=== PATIENT | male | born 1960 | race Caucasian/White ===

== ENCOUNTER 2019-08-06 08:42 | Emergency (ER) | payer MEDICAID, SELFPAY ==
[2019-08-06 08:44] VITALS: BP 125/71; PULSE 99; RESP 19; TEMP 36.6; O2SAT 99; BMI 26.9
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
[2019-08-06 09:01] LABS: Absolute Lymphocyte Count 1.37 X10^3/uL (0.83-4.51); Absolute Neutrophil Count 3.7 X10^3/uL (2.0-7.7); Basophil# 0.03 X10^3/uL; Basophil% 0.5 % (0-1); Eosinophil# 0.13 X10^3/uL; Eosinophils% 2.3 % (0-5); Hematocrit 46.4 % (40-54); Hemoglobin 15.4 g/dL (13.0-16.5); Lymphocyte # 1.37 X10^3/ul (4.0); Lymphocyte % 24.1 % (19-41); Mean Corp Hgb Conc 33.2 g/dL (32-36); Mean Corpuscular Hgb 29.7 pg (27.0-32.0); Mean Corpuscular Volume 89.6 fL (80-94); Mean Platelet Vol. 9.7 fl (6.2-12.0); Monocyte# 0.44 X10^3/uL; Monocyte% 7.7 % (0-10); NRBC Flagged by Analyzer 0 % (0-5); Neutrophil # 3.69 X10^3/uL (2.7-7.7); Neutrophil % 64.9 % (47-70); Platelet Count 253 K/mm3 (150-450); RBC Distribution Width CV 11.9 % (11.6-14.6); RBC Distribution Width SD 38.9 fl (35.1-43.9); Red Blood Count 5.18 M/mm3 (4.6-6.2); White Blood Count 5.7 K/mm3 (4.4-11.0)
[2019-08-06 09:07] LABS: Partial Thromboplast Time 26.8 Seconds (24.1-36.2); Prothrombin Time (Protime)PT. 12.9 SECONDS (11.7-14.9)
[2019-08-06] MEDS: 0.9% Normal Saline 1,000 ML 150 ML IV (09:11)
[2019-08-06 09:16] LABS: AST(SGOT) 21 U/L (15-37); Alanine Aminotransfer ALT/SGPT 25 U/L (16-61); Albumin, Serum 3.4 g/dL (3.2-5.0); Alkaline Phosphatase 111 U/L (45-117); Anion Gap 4 (5-15); BUN 10 mg/dL (7-18); BUN/Creat Ratio 10.4 RATIO (10-20); Bilirubin, Direct 0.14 mg/dL (0.00-0.30); Calcium,Total 9.1 mg/dL (8.5-10.1); Chloride 102 mmol/L (98-107); Creatinine, Serum 0.96 mg/dL (0.70-1.30); EST Glomerular Filtration Rate 84 mL/min (>60); Est Glom Filt Rate - Afr Amer 102 mL/min (>60); Estimated Creatinine Clearance 84.49 ml/min; Globulin 3.8 g/dL (2.2-4.2); Glucose 429 mg/dL (74-106); Potassium 3.5 mmol/L (3.5-5.1); Protein, Total 7.2 g/dL (6.4-8.2); Sodium Level 135 mmol/L (136-145)
--- NOTE | 2019-08-06 09:45 | ED.RN ---
jimbo márquez [phone] or rajinder mejia [phone] requesting to be called if pt is transferred
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
[2019-08-06] MEDS: Ondansetron 4 MG/2 ML Vial IV (10:10)
[2019-08-06] MEDS: fentaNYL 100 MCG/2 ML Ampul 50 MCG IV (10:10)
--- NOTE | 2019-08-06 10:37 | VDLE_ITS ---
Procedure LEFT Exam performed portable in ED. GSV is normal. The exam was diagnostic. FV is compressible, spontaneous, phasic, A preliminary report was called and/or faxed competent and demonstrates normal to Dr. Reeder. augmentation. PTV is compressible. LT PerV is compressible. CFV is partially compressible with decreased flow. DVT is hypoechoic consistent with acute DVT. POP V and T/P Trunk are partially compressible with bright intraluminal echoes consistent with chronic DVT. Interpretation Summary Acute deep venous thrombosis left common femoral vein. Left popliteal and tibioperoneal trunk partially compressible suggestive of chronic deep venous thrombosis--clinical correlation would be appropriate. Chart review reveals left lower extremity deep venous thrombosis on 06/18/15. Ordering Physician: Alyse Reeder Performed By: Alexis Hernandez RVDebbie
[2019-08-06 10:44] VITALS: BP 144/77; PULSE 95; RESP 16; O2SAT 97
[2019-08-06 11:15] VITALS: BP 135/88; PULSE 93; RESP 15; O2SAT 95
[2019-08-06 12:00] VITALS: BP 148/91; PULSE 89; RESP 16; O2SAT 98
[2019-08-06] MEDS: Heparin Injection (Vial) 5,000 UNIT/ML VIAL 4000 UNIT IV (12:19)
[2019-08-06] MEDS: Heparin Injection (Vial) 5,000 UNIT/ML VIAL IV ×2 (12:21→12:26)
[2019-08-06] MEDS: HEPARIN/D5w 25,000 UNITS 25,000 UNITS/250 ML IV.SOLN. 10 UNITS IV (12:28)
== END 2019-08-06 14:30 | disposition short-term general hospital (02) ==
PROVIDERS: Emergency Provider Emergency Medicine
DX: S22.31XA Fracture of one rib, right side, initial encounter for closed fracture (principal); S70.211A Abrasion, right hip, initial encounter; I82.412 Acute embolism and thrombosis of left femoral vein; R51 Headache; K80.20 Calculus of gallbladder without cholecystitis without obstruction; V43.62XA Car passenger injured in collision with other type car in traffic accident, initial encounter; Y93.9 Activity, unspecified; Y92.9 Unspecified place or not applicable; J44.9 Chronic obstructive pulmonary disease, unspecified; E11.9 Type 2 diabetes mellitus without complications; M06.9 Rheumatoid arthritis, unspecified; Z86.718 Personal history of other venous thrombosis and embolism; Z87.891 Personal history of nicotine dependence
CPT/HCPCS: 70450; 71260; 72125; 74177; 80048; 80076; 85025; 85610; 85730; 93005; 93971; 96361; 96374; 96375; 99285; J7030; Q9967; A4216; J2405

== ENCOUNTER 2019-08-29 19:40 | Emergency (ER) | payer MEDICAID, SELFPAY ==
[2019-08-29] VITALS (10 sets, daily range): BP systolic 109–139; BP diastolic 62–87; PULSE 77–102; RESP 15–30; TEMP 36.8–37.2; O2SAT 89–100; BMI 24.7
--- NOTE | 2019-08-29 20:05 | EKG12_ITS ---
Test Reason : Blood Pressure : / mmHG Vent. Rate : 077 BPM Atrial Rate : 077 BPM P-R Int : 132 ms QRS Dur : 086 ms QT Int : 398 ms P-R-T Axes : 068 046 064 degrees QTc Int : 450 ms Normal sinus rhythm Normal ECG Confirmed by ALEKSEY KEMP, WINNIE ([id number]), editor greeting card HARSHAL MADRIGAL ([id number]) on 09/02/2019 9:36:16 AM Referred By: Mariely Del Cid Confirmed By:WINNIE RYDER MD
--- NOTE | 2019-08-29 20:15 | RAD_ITS ---
STUDY: X-RAY CHEST REASON FOR EXAM: Male, 59 years old. Shortness of breath TECHNIQUE: Single AP portable view of the chest. COMPARISON: 06/17/2015 FINDINGS: The lungs are clear and expanded. There is no demonstrated pleural abnormality. Normal size heart. Normal mediastinum and josue. Normal visualized pulmonary arteries. Normal visualized aortic arch and descending thoracic aorta. Normal visualized thoracic spine. Normal visualized ribs, clavicles, and shoulders. There is no demonstrated abnormality of the visualized soft tissue structures of the upper abdomen. RAD/Chest 1 View (Portable) IMPRESSION: Normal x-ray examination of the chest. Electronically Signed: Merrill Lilly DO at 20:28 EDT Tel , Service support ,
[2019-08-29 20:18] LABS: Absolute Lymphocyte Count 2.89 X10^3/uL (0.83-4.51); Absolute Neutrophil Count 9.1 X10^3/uL (2.0-7.7); Basophil# 0.07 X10^3/uL; Basophil% 0.5 % (0-1); Eosinophil# 0.14 X10^3/uL; Eosinophils% 1.1 % (0-5); Hematocrit 46.1 % (40-54); Hemoglobin 15.3 g/dL (13.0-16.5); Lymphocyte # 2.89 X10^3/ul (4.0); Mean Corp Hgb Conc 33.2 g/dL (32-36); Mean Corpuscular Hgb 28.9 pg (27.0-32.0); Mean Corpuscular Volume 87.1 fL (80-94); Mean Platelet Vol. 9.6 fl (6.2-12.0); Monocyte# 0.87 X10^3/uL; Monocyte% 6.6 % (0-10); NRBC Flagged by Analyzer 0 % (0-5); Neutrophil % 69.4 % (47-70); Platelet Count 357 K/mm3 (150-450); RBC Distribution Width CV 12.1 % (11.6-14.6); RBC Distribution Width SD 38.8 fl (35.1-43.9); Red Blood Count 5.29 M/mm3 (4.6-6.2); White Blood Count 13.1 K/mm3 (4.4-11.0)
--- NOTE | 2019-08-29 20:27 | NURSING ---
pt states that he was suppose to start xarelto when he was d/c from the hospital on August 16.
--- NOTE | 2019-08-29 20:31 | NURSING ---
pt was 89% on room air. pt put on oxygen to help with this.
[2019-08-29 20:32] LABS: D-Dimer Quantitative (DVT/PE) 0.98 FEU/ug/m (0.27-0.49)
[2019-08-29 20:39] LABS: ALB/GLOB Ratio 0.7 RATIO (0.9-2.4); AST(SGOT) 16 U/L (15-37); Alanine Aminotransfer ALT/SGPT 22 U/L (16-61); Albumin, Serum 3.2 g/dL (3.2-5.0); Alkaline Phosphatase 135 U/L (45-117); Anion Gap 11 (5-15); BUN 20 mg/dL (7-18); BUN/Creat Ratio 21.9 RATIO (10-20); Calcium,Total 9.5 mg/dL (8.5-10.1); Chloride 102 mmol/L (98-107); Creatinine, Serum 0.91 mg/dL (0.70-1.30); EST Glomerular Filtration Rate 90 mL/min (>60); Est Glom Filt Rate - Afr Amer 109 mL/min (>60); Estimated Creatinine Clearance 89.13 ml/min; Globulin 4.6 g/dL (2.2-4.2); Glucose 236 mg/dL (74-106); Potassium 3.6 mmol/L (3.5-5.1); Protein, Total 7.8 g/dL (6.4-8.2); Sodium Level 139 mmol/L (136-145)
--- NOTE | 2019-08-29 20:40 | CT_ITS ---
STUDY: CTA CHEST REASON FOR EXAM: Male, 59 years old. Elevated d-dimer with dyspnea RADIATION DOSAGE (If Supplied By Facility): CTDIvol = ( 13.44 ) mGy, DLP = ( 455.53 ) mGycm TECHNIQUE: The examination was performed with the intravenous administration of IV Isovue 370 75ML. Post-processing of the angiographic images was performed, with multiplanar reformation and 3D reconstruction. Individualized dose optimization techniques were used for this CT. COMPARISON: Chest x-ray today FINDINGS: Normal enhancement of the main pulmonary artery and right and left pulmonary arteries. Normal enhancement of the bilateral peripheral pulmonary arteries. There is no demonstrated pulmonary embolism. Normal thoracic aorta and visualized great vessels. There is no demonstrated aortic dissection. Normal heart and pericardium. Normal mediastinum. Normal hilar regions. Normal visualized trachea and bronchi. The lungs are well expanded. Patchy groundglass airspace disease in the right lower lobe suggesting infection. Lungs otherwise mildly hyperinflated and clear. Normal chest wall structures. There are degenerative changes of thoracic spine. Gallstones without evidence of acute cholecystitis. CT/CTA Chest W/WO Contrast IMPRESSION: Negative for pulmonary embolism. Negative for thoracic aortic dissection. Patchy groundglass airspace disease in the right lower lobe suggesting early infection. Recommend clinical correlation for pneumonia Electronically Signed: Merrill Lilly DO at 21:26 EDT Tel , Service support ,
[2019-08-29] MEDS: Ipratropium/Albuterol Sulfate 3 ML AMPUL.NEB INHALATION (21:00)
[2019-08-29] MEDS: MethylPREDNISolone 125 MG/2 ML Vial 60 MG IV (21:15)
[2019-08-29] MEDS: levoFLOXacin 750 MG Tablet PO (23:37)
--- NOTE | 2019-08-29 23:41 | ED.DCSUM_ITS ---
- ER Visit Summary Date of Service: 08/29/19 Chief Complaint: Shortness of breath History of Present Illness: The patient is a 59 M who presents with shortness of breath that has been getting worse throughout the day today. Patient states nothing seems to make his breathing better or worse. Patient admits to a cough with some sputum. Patient states he does not spit out his sputum to look at it. Patient also admits to some rhinorrhea. Patient admits to subjective chills. Patient states he does have pain in his chest with deep breathing. Nurse reports that the patient has a DVT in his left leg but has not started his Xarelto as prescribed. Physical Examination: Vital signs are stable. Patient is afebrile. Patient is in no acute distress. Oral mucosa is pink and moist. Neck is supple. Trachea is midline. There is no JVD noted. Heart was regular rate and rhythm. Lungs were diminished bilaterally. Abdomen is soft. Bowel sounds are normal. There is no tenderness. Cranial nerves II through XII are intact. There are no focal motor or sensory deficits noted. Test Results: EKG showed normal sinus rhythm with a rate of 77. There are no acute ST or T wave changes. This was unchanged compared to previous EKG dated 08/06/2019. CBC showed a mild leukocytosis of 13.1. Basic metabolic profile showed a mild glucose of 236. Alk phos was slightly elevated at 135. Troponin was normal. D-dimer was ordered and was elevated at 0.98. CTA of the chest was obtained. There is no evidence of pulmonary embolism. There is patchy groundglass appearance in the right lower lobe suggesting early infection. Emergency Department Course and Treatment: Patient was given DuoNeb aerosol here. Patient was placed on oxygen. Patient was given a dose of Levaquin here. Patient's oxygen was turned off. Patient remained 95% on room air. I feel the patient is able to be discharged home. Patient was given a prescription for doxycycline. Patient was instructed to follow-up with his primary care physic venessa at the [facility] in clinic in 3 to 5 days. Patient understood and was agreeable with the plan. All questions were answered. Disposition: Discharge home Impression: Community-acquired pneumonia This note was generated with [employer] dictation software. It may contain incorrect words, spelling, and punctuation that were not noted in review of the chart prior to signing ED Disposition - Plan for ED Patient: Disposition: Home or Assisted Living Diagnosis: Community acquired pneumonia Instructions: PNEUMONIA (Adult) Prescriptions: Doxycycline 100 mg PO BID #20 cap Prescription Printed Referrals: Marisa Obrien [Primary Care Provider] - 3-5 Days Additional Instructions: Take your Xarelto as previously prescribed. Follow-up with your primary care physician in 3 to 5 days.
== END 2019-08-29 23:51 | disposition home or self-care (01) ==
PROVIDERS: Emergency Provider Emergency Medicine; Referring Provider Nurse Practitioner Family
DX: J18.9 Pneumonia, unspecified organism (principal); R79.89 Other specified abnormal findings of blood chemistry; I82.402 Acute embolism and thrombosis of unspecified deep veins of left lower extremity; Z91.14 Patient's other noncompliance with medication regimen; J44.9 Chronic obstructive pulmonary disease, unspecified; M06.9 Rheumatoid arthritis, unspecified; G47.30 Sleep apnea, unspecified; Z79.84 Long term (current) use of oral hypoglycemic drugs; Z87.891 Personal history of nicotine dependence
CPT/HCPCS: 71045; 71275; 80053; 84484; 85025; 85379; 93005; 94640; 94760; 96374; 99285; Q9967; A4216

== ENCOUNTER 2019-10-01 11:20 | Emergency (ER) | payer MEDICAID, SELFPAY ==
[2019-08-29 19:42] VITALS: BMI 24.7
[2019-10-01 11:20] VITALS: BP 110/57; PULSE 107; RESP 33; TEMP 36.7; O2SAT 98; BMI 24.3
--- NOTE | 2019-10-01 11:33 | EKG12_ITS ---
Test Reason : SOB Blood Pressure : / mmHG Vent. Rate : 084 BPM Atrial Rate : 084 BPM P-R Int : 120 ms QRS Dur : 088 ms QT Int : 384 ms P-R-T Axes : 077 017 069 degrees QTc Int : 453 ms Normal sinus rhythm Normal ECG Confirmed by DARYL LOCKE ([id number]), editor publications SHERIN ALTMAN ([id number]) on 10/06/2019 9:23:50 AM Referred By: CHARLA Confirmed By:DARYL LOCKE
--- NOTE | 2019-10-01 11:34 | ED.VISSUMM ---
- ER Visit Summary Date of Service: 10/01/19 Chief Complaint: Shortness of breath History of Present Illness: The patient is a 59 M history of COPD, prior DVTs and bilateral PEs. He is on Xarelto but he stopped taking it 3 or so days ago. Has developed some right lower rib cage chest pain. Denies hemoptysis. Is not pleuritic. Is also had a cough. He also has a history of diabetes. He denies any leg pain or swelling. Patient states this morning he was short of breath with right lower rib cage pain. No fever. Physical Examination: Middle-aged male vital signs are stable afebrile pulse ox 90% on room air no hypoxia. H EENT exam unremarkable. Neck nontender no JVD. Lungs prolonged expiratory phase. Coarse but no rhonchi or wheezing. Heart regular rhythm rate about 105 no murmur. Chest wall nontender. No ecchymosis or bruising no subcu air crepitance. Abdomen is soft nontender normal bowel sounds no peritoneal signs. Remedies moves all 4 neurovascular intact calves nontender without edema or cords. Neurologically is awake and alert with no focal motor deficits. Test Results: Chest x-ray is portable one view read by myself and the radiologist. Radiologist was concerned for possible right lower lobe infiltrate. CBC white count 13. Hemoglobin 16. Chemistries normal glucose elevated 329. Troponin normal. D-dimer was elevated 1.57 with that is prior history and right lower rib cage chest pain a CTA was performed which showed no acute abnormality. No PE no dissection nor infiltrate. Emergency Department Course and Treatment: 59-year-old male with a substantial past medical history with shortness of breath and right lower rib cage pain. This could be COPD versus infection versus a recurrent PE. He will undergo cardiac work-up along with a d-dimer and those results will determine ER course and possible further testing. Repeat exam patient is doing well at 1530. Has been treated with aerosols and p.o. prednisone. He is comfortable being discharged to home. Treatment Plan: Zithromax Z-DIAMANTE due to the change in his sputum and COPD history. Prednisone for 7 days. And follow-up with his primary care physician. Disposition: Discharge Impression: Acute dyspnea with bronchitis History of COPD History of DVT and PEs. This note was generated with [employer] software. It may contain incorrect words, spelling, and punctuation that were not noted in review of the chart prior to signing ED Disposition - Plan for ED Patient: Referrals: Marisa Obrien [Primary Care Provider] -
--- NOTE | 2019-10-01 11:40 | RAD_ITS ---
STUDY: X-RAY CHEST REASON FOR EXAM: Male, 59 years old. Chest pain. TECHNIQUE: Single AP portable view of the chest. COMPARISON: Comparison is made with prior study dated August 29, 2019. FINDINGS: EKG electrodes are seen. New focal right lower lobe infiltrate. There is no demonstrated pleural abnormality. Normal size heart. There are calcified mediastinal lymph nodes. Normal visualized pulmonary arteries. Normal visualized aortic arch and descending thoracic aorta. There are diffuse degenerative changes of the visualized thoracic spine. Normal visualized ribs, clavicles, and shoulders. There is no demonstrated abnormality of the visualized soft tissue structures of the upper abdomen. RAD/Chest 1 View (Portable) IMPRESSION: Focal right lower lobe infiltrate. Electronically Signed: Gustavo Lezama, at 12:29 EST , Service support ,
[2019-10-01 11:43] VITALS: PULSE 90; RESP 25
[2019-10-01 11:52] VITALS: O2SAT 97
[2019-10-01 12:05] LABS: Absolute Lymphocyte Count 2.08 X10^3/uL (0.83-4.51); Absolute Neutrophil Count 10.1 X10^3/uL (2.0-7.7); Basophil# 0.04 X10^3/uL; Basophil% 0.3 % (0-1); Eosinophil# 0.07 X10^3/uL; Eosinophils% 0.5 % (0-5); Hematocrit 48.3 % (40-54); Hemoglobin 16.6 g/dL (13.0-16.5); Lymphocyte # 2.08 X10^3/ul (4.0); Lymphocyte % 15.5 % (19-41); Mean Corp Hgb Conc 34.4 g/dL (32-36); Mean Corpuscular Hgb 29.6 pg (27.0-32.0); Mean Corpuscular Volume 86.1 fL (80-94); Mean Platelet Vol. 10.1 fl (6.2-12.0); Monocyte# 1.03 X10^3/uL; Monocyte% 7.7 % (0-10); NRBC Flagged by Analyzer 0 % (0-5); Neutrophil # 10.11 X10^3/uL (2.7-7.7); Neutrophil % 75.6 % (47-70); Platelet Count 283 K/mm3 (150-450); RBC Distribution Width CV 12.5 % (11.6-14.6); RBC Distribution Width SD 39.4 fl (35.1-43.9); Red Blood Count 5.61 M/mm3 (4.6-6.2); White Blood Count 13.4 K/mm3 (4.4-11.0)
[2019-10-01] MEDS: predniSONE 20 MG Tablet 60 MG PO (12:15)
[2019-10-01 12:17] LABS: Anion Gap 9 (5-15); BUN 15 mg/dL (7-18); BUN/Creat Ratio 13.9 RATIO (10-20); Calcium,Total 9.5 mg/dL (8.5-10.1); Chloride 100 mmol/L (98-107); Creatinine, Serum 1.08 mg/dL (0.70-1.30); EST Glomerular Filtration Rate 74 mL/min (>60); Est Glom Filt Rate - Afr Amer 90 mL/min (>60); Glucose 329 mg/dL (74-106); Potassium 3.7 mmol/L (3.5-5.1); Sodium Level 136 mmol/L (136-145)
[2019-10-01 12:20] LABS: D-Dimer Quantitative (DVT/PE) 1.57 FEU/ug/m (0.27-0.49)
--- NOTE | 2019-10-01 12:52 | CT_ITS ---
STUDY: CTA CHEST REASON FOR EXAM: Male, 59 years old. Dyspnea. Chest pain with exertion. RADIATION DOSAGE (If Supplied By Facility): CTDIvol = ( 9.57 ) mGy, DLP = ( 347.71 ) mGycm TECHNIQUE: The examination was performed with the intravenous administration of 75CC ISOVUE 370. Post-processing of the angiographic images was performed, with multiplanar reformation and 3D reconstruction. Individualized dose optimization techniques were used for this CT. COMPARISON: Comparison is made with prior study dated August 29, 2019. FINDINGS: Normal enhancement of the main pulmonary artery and right and left pulmonary arteries. Normal enhancement of the bilateral peripheral pulmonary arteries. There is no demonstrated pulmonary embolism. Normal thoracic aorta and visualized great vessels. There is no demonstrated aortic dissection. Normal heart and pericardium. Normal mediastinum. Normal hilar regions. Normal visualized trachea and bronchi. The lungs are well expanded. Normal pulmonary parenchyma. Normal pleura. Normal chest wall structures. There are degenerative changes of thoracic spine. Small gallstones. Calcified splenic granulomas. Stable 2.4 cm x 1.9 cm adenoma in the right adrenal gland as well as hyperplasia of the left adrenal gland. CT/CTA Chest W/WO Contrast IMPRESSION: No acute abnormality is seen. Gallstones. Left adrenal hyperplasia and right adrenal adenoma. Electronically Signed: Gustavo Lezama, at 13:51 EST , Service support ,
[2019-10-01 13:20] VITALS: BP 127/78; PULSE 83; RESP 18; O2SAT 100
[2019-10-01 15:00] VITALS: BP 117/78; PULSE 85; RESP 18; O2SAT 100
--- NOTE | 2019-10-01 15:34 | ED.DEP ---
ED Disposition - Plan for ED Patient: Disposition: Home or Assisted Living Instructions: BRONCHITIS, Antiobiotic Treatment (Adult) Prescriptions: Prednisone [Deltasone] 40 mg PO DAILY 7 Days tab Prescription Printed Albuterol Sulfate [Proventil Hfa] 6.7 gm IH Q2H PRN PRN #1 [id number] PRN Reason: Wheezing Prescription Printed Azithromycin [Zithromax] 250 mg PO DAILY #4 tab Prescription Printed Referrals: [facility] Martines [Primary Care Provider] - 3-5 Days Additional Instructions: Reassured lung inflammation help your breathing. Zithromax antibiotic 1 pill a day start tomorrow. Use your inhalers as needed. Restart your Xarelto.
[2019-10-01 15:58] VITALS: BP 117/78; PULSE 88; RESP 96; O2SAT 99
[2019-10-01] MEDS: Azithromycin 250 MG Tablet 500 MG PO (15:59)
== END 2019-10-01 16:07 | disposition home or self-care (01) ==
PROVIDERS: Emergency Provider Emergency Medicine
DX: J44.9 Chronic obstructive pulmonary disease, unspecified (principal); Z86.718 Personal history of other venous thrombosis and embolism; Z86.711 Personal history of pulmonary embolism; R79.89 Other specified abnormal findings of blood chemistry; E11.9 Type 2 diabetes mellitus without complications; I25.2 Old myocardial infarction; Z87.19 Personal history of other diseases of the digestive system; Z79.84 Long term (current) use of oral hypoglycemic drugs; Z79.01 Long term (current) use of anticoagulants; Z87.891 Personal history of nicotine dependence
CPT/HCPCS: 71045; 71275; 80048; 84484; 85025; 85379; 93005; 99285; Q9967; A4216

== ENCOUNTER 2020-09-08 14:29 | Emergency (ER) | payer MEDICAID, SELFPAY ==
[2020-09-08 14:31] VITALS: BP 111/67; PULSE 83; RESP 16; TEMP 36.1; O2SAT 98; BMI 23.6
[2020-09-08 14:45] LABS: Bedside Glucose 368 mg/dL (70-110)
--- NOTE | 2020-09-08 15:00 | EKG12_ITS ---
Test Reason : Blood Pressure : / mmHG Vent. Rate : 093 BPM Atrial Rate : 093 BPM P-R Int : 128 ms QRS Dur : 086 ms QT Int : 360 ms P-R-T Axes : 078 056 064 degrees QTc Int : 447 ms Sinus rhythm with Premature supraventricular complexes Otherwise normal ECG Confirmed by GILLIAN KEMP, NISSA ([id number]), dolphin researcher HARSHAL MADRIGAL ([id number]) on 09/09/2020 8:38:24 AM Referred By: CHARLA Confirmed By:NISSA FRENCH MD
--- NOTE | 2020-09-08 15:00 | CT_ITS ---
STUDY: CT BRAIN WITHOUT CONTRAST REASON FOR EXAM: Male, 60 years old. FALL HITTING BACK OF HEAD RADIATION DOSAGE (If Supplied By Facility): CTDIvol = ( 44.99 ) mGy, DLP = ( 796.11 ) mGycm TECHNIQUE: Transaxial CT imaging of the brain was performed without administration of intravenous contrast material. Individualized dose optimization techniques were used for this CT. COMPARISON: 08/06/2019 FINDINGS: Normal soft tissue structures. Normal calvarium. Normal size ventricles and extra-axial spaces for the patient''s age. Normal white matter tracts of the cerebral hemispheres. Normal basal ganglia and thalami. Normal brainstem. Normal cerebellum. There is no intracranial hemorrhage. There are no findings of an acute ischemic infarction. Normal visualized paranasal sinuses. CT/Brain/Head without Contrast IMPRESSION: Normal unenhanced CT scan of the brain. Electronically Signed: David Lloyd MD at 15:50 EST Tel , Service support ,
--- NOTE | 2020-09-08 15:05 | ED.VISSUMM ---
- ER Visit Summary Date of Service: 09/08/20 Chief Complaint: Fall with head injury and loss of consciousness History of Present Illness: The patient is a [address] of prior IA, COPD, type 2 diabetes, prior DVT and PE, prior rib fractures diabetic neuropathy. Previously was on Xarelto for his pulmonary emboli but is no longer on it and has been on it for some time. Patient is homeless lives in his truck was getting out of his truck and does not know why he fell but fell hit his head and had loss of consciousness. Prior to the fall he said he felt fine. No headache chest pain or shortness of breath. Since the fall he has had a headache. Denies any weakness to his extremities or new numbness. Physical Examination: Older male vital signs stable afebrile no acute distress. Pupils are reactive light. No facial trauma. Posterior scalp tender. There is blood on the sheet. There is no large hematoma. No pulsatile bleeding. C-spine nontender. Trachea midline. Lungs clear to auscultation bilaterally. Heart regular rhythm no murmur. Abdomen soft nontender. Extremities moves all 4. Normal strength. Dorsi plantarflexion intact. Able flex extend both knees and hips. Back nontender. Thoracic and lumbar spine nontender. Neurologically is awake and alert with no focal motor deficits. Test Results: White count 9. Hemoglobin 17. Chemistries unremarkable gap of 8. Creatinine 1.1 glucose elevated at 409. EKG normal sinus rhythm rate of [address] of the brain shows no acute abnormality. No bleed. No skull fracture. Read by the radiologist and reviewed by me. Emergency Department Course and Treatment: 60-year-old male who fell striking his head with loss of consciousness. Nurses report he did a BG T and it was 378. Screening labs to be obtained along with a CAT scan. Currently his GCS is 15. He does know the day where he is and who he is. He is answering questions appropriately. Wilmer exam is the patient is doing well at 4:45 PM and 5:30 PM. Nurses cleaned off the back of the head a very minor abrasion. Nothing that need to be sewn repaired. He is awake alert he and I discussed all his test results. Treatment Plan: Head injury/concussion protocol. Ice to his scalp. Tylenol for pain. Disposition: Discharge Impression: Acute fall with head injury and loss of consciousness (concussion) Posterior scalp abrasion Acute hyperglycemia with history of diabetes History of diabetes History of COPD History of DVT and prior PE This note was generated with [employer] dictation software. It may contain incorrect words, spelling, and punctuation that were not noted in review of the chart prior to signing ED Disposition - Plan for ED Patient: Disposition: Home or Assisted Living Instructions: ED Concussion [facility]errals: [facility] [NON-STAFF] - As Needed Additional Instructions: Ice to your scalp. Tylenol Motrin for any pain and headaches. Your CAT scan your brain was fine. You have an underlying concussion from your fall and head injury. This should progressively improve over the next several weeks.
[2020-09-08 15:13] LABS: Absolute Lymphocyte Count 1.31 X10^3/uL (0.83-4.51); Absolute Neutrophil Count 7.3 X10^3/uL (2.0-7.7); Basophil# 0.05 X10^3/uL; Basophil% 0.5 % (0-1); Eosinophil# 0.09 X10^3/uL; Hematocrit 53.6 % (40-54); Hemoglobin 17.2 g/dL (13.0-16.5); Lymphocyte # 1.31 X10^3/ul (4.0); Mean Corp Hgb Conc 32.1 g/dL (32-36); Mean Corpuscular Volume 87.3 fL (80-94); Mean Platelet Vol. 9.7 fl (6.2-12.0); Monocyte# 0.53 X10^3/uL; Monocyte% 5.7 % (0-10); NRBC Flagged by Analyzer 0 % (0-5); Neutrophil # 7.32 X10^3/uL (2.7-7.7); Neutrophil % 78.3 % (47-70); Platelet Count 331 K/mm3 (150-450); RBC Distribution Width CV 13.1 % (11.6-14.6); RBC Distribution Width SD 41.9 fl (35.1-43.9); Red Blood Count 6.14 M/mm3 (4.6-6.2); White Blood Count 9.4 K/mm3 (4.4-11.0)
[2020-09-08] MEDS: Diphth,Pertuss(Acell),Tet Vac 0.5 ML Vial IM (15:17)
[2020-09-08 15:22] LABS: Anion Gap 8 (5-15); BUN 23 mg/dL (7-18); BUN/Creat Ratio 19.8 RATIO (10-20); Calcium,Total 9.7 mg/dL (8.5-10.1); Chloride 100 mmol/L (98-107); Creatinine, Serum 1.16 mg/dL (0.70-1.30); EST Glomerular Filtration Rate 68 mL/min (>60); Est Glom Filt Rate - Afr Amer 82 mL/min (>60); Estimated Creatinine Clearance 69.05 ml/min; Glucose 409 mg/dL (74-106); Potassium 4.3 mmol/L (3.5-5.1); Sodium Level 135 mmol/L (136-145)
--- NOTE | 2020-09-08 16:04 | CM.ED ---
Social Work Consult: Resources Informant: Nursing staff. Met with patient in room. Introduced self and social work supervisor role. Patient agreeable to speaking with this social work supervisor. Patient reports to currently be homeless and living in my truck. Patient reports to have a metro application for housing but to have not completed housing application yet. This social work supervisor encouraging patient to complete metro housing application as patient would most likely be towards the top of the list due to currently being homeless. Patient denies concerns with comprehension or understanding. Patient reports plan to complete metro application. Patient open to receiving list of PCP's in-network with patient insurance as patient does not have a PCP. Patient reports to be on disability as main income and to have food stamps. Patient open to receiving information on [employer], and community action transportation as my truck is not dependable. Patient denies concerns on returning to home and to have support from a friend. Patient reports that food is taken care of. Patient main concern is housing. Patient again voices plan to complete metro application. Patient denies further needs/questions. All mentioned resources provided to patient. Patient denies mental health history. Medical team updated on above. PLAN: Discharge to community. Lia PALMA, MASSIEL
--- NOTE | 2020-09-08 17:37 | ED.DEP ---
ED Disposition - Plan for ED Patient: Disposition: Home or Assisted Living Instructions: ED Concussion [facility]errals: [facility] [NON-STAFF] - As Needed Additional Instructions: Ice to your scalp. Tylenol Motrin for any pain and headaches. Your CAT scan your brain was fine. You have an underlying concussion from your fall and head injury. This should progressively improve over the next several weeks.
[2020-09-08 17:50] VITALS: BP 109/62; PULSE 98; RESP 22; O2SAT 97
== END 2020-09-08 18:14 | disposition home or self-care (01) ==
PROVIDERS: Emergency Provider Emergency Medicine
DX: S06.0X9A Concussion with loss of consciousness of unspecified duration, initial encounter (principal); S00.01XA Abrasion of scalp, initial encounter; V58.4XXA Person boarding or alighting a pick-up truck or van injured in noncollision transport accident, initial encounter; Y93.9 Activity, unspecified; Y92.9 Unspecified place or not applicable; Y99.9 Unspecified external cause status; E11.40 Type 2 diabetes mellitus with diabetic neuropathy, unspecified; E11.65 Type 2 diabetes mellitus with hyperglycemia; J44.9 Chronic obstructive pulmonary disease, unspecified; I25.2 Old myocardial infarction; Z59.0 Homelessness; Z86.718 Personal history of other venous thrombosis and embolism; Z86.711 Personal history of pulmonary embolism
CPT/HCPCS: 70450; 80048; 82962; 85025; 90471; 90715; 93005; 99284

== ENCOUNTER 2020-10-03 02:43 | Inpatient (IN) | payer MEDICAID, SELFPAY ==
[2020-10-03] VITALS (33 sets, daily range): BP systolic 97–147; BP diastolic 37–90; PULSE 79–108; RESP 9–28; TEMP 36.7–37.7; O2SAT 95–100; BMI 24.9; BMI 24.8
--- NOTE | 2020-10-03 02:56 | RAD_ITS ---
STUDY: X-RAY - LEFT FOOT CLINICAL: Male, 60 years old patient with ulcer on bottom of heel for one week. TECHNIQUE: 3 view(s) of the foot. COMPARISON: Prior comparison studies are not available for review at this time. FINDINGS: There is a small plantar calcaneal spur and posterior calcaneal enthesophyte. There is pes cavus. There are mild degenerative changes of the intertarsal articulations. Tarsal metatarsal articulations are within normal limits. Normal metatarsi. Normal metatarsophalangeal joint of the great toe. There is a bipartite tibial sesamoid. Normal interphalangeal joint of the great toe. Normal phalanges of the great toe. Normal second through fifth metatarsophalangeal joints. Normal interphalangeal joints and phalanges of the lesser toes. There is a soft tissue lucency within the planter heel consistent with known ulceration. There is probable soft tissue emphysema in this area as well. There is no demonstrated fracture. A zipper is visible probably related to patient''s clothing. RAD/Foot min 3 Views IMPRESSION: Large soft tissue ulceration of the heel without definite evidence for osteomyelitis. Electronically Signed: Anne Kwok MD at 4:04 EST , Service support ,
--- NOTE | 2020-10-03 03:11 | ED.VIS.GEN ---
History of Present Illness Chief Complaint: Wound Informant: Patient Narrative: Patient is a 60-year-old male with a past medical history of diabetes who presents to the emergency department for a ulceration to his left heel. This been present for the past week. He denies ever having this happen before in the past. Patient is homeless and lives out of his truck. He denies having his feet frozen at any point. He states that the pain has been getting more severe and that is why is coming to the emergency department this morning. He denies any fevers or chills. No nausea/vomiting. Patient states he has not been compliant with his diabetic medications over the past 3 years because of the way it made him feel. Patient did wrap the foot but otherwise has not tried anything else for it. Past Medical History - Allergies and Home Meds Allergies/Adverse Reactions: Allergies No Known Allergies Allergy (Verified 09/08/20 14:32) Prior records reviewed: Yes Past Medical History: - - Diabetic Smoking Status: Former smoker Alcohol: None Drugs: None - Family History Maternal Family History: Reports: No pertinent history Review of Systems All systems negative except as indicated General: Denies: Chills, Fever, Sweats Eyes: Denies: Visual changes - bilaterally, Diplopia ENT: Denies: Rhinorrhea, Sore throat Cardiovascular: Denies: Chest pain, Palpitations Respiratory: Reports: Cough. Denies: Dyspnea, Sputum, Dyspnea on exertion Gastrointestinal: Denies: Abdominal pain, Nausea, Vomiting, Diarrhea Genitourinary: Denies: Dysuria, Hematuria, Frequency Musculoskeletal: Denies: Back pain, Extremity Pain Skin: Reports: Wounds. Denies: Rash Neurological: Denies: Headache, Weakness, Numbness Physical Exam Vital Signs/Narrative: Vital Signs Temp Pulse Resp BP Pulse Ox 10/03/20 02:51 98.7 F 108 H 28 H 115/53 L 99 10/03/20 02:50 98.7 F 108 H 28 H 115/53 L 99 10/03/20 02:47 98.2 F 108 H 28 H 115/53 L 99 Inital Vital Signs reviewed: Yes General: Unkempt, No Acute Distress Head: Normocephalic, Atraumatic Eyes: Perrl, EOMI ENT: Moist mucous membranes, No rhinorrhea Neck: Supple, Nontender Cardiovascular: Regular rate, Regular rhythm, No murmurs Respiratory: No distress, CTA bilaterally, Chest nontender Abdomen: Soft, Nontender, Nondistended, Normal bowel sounds Back: Nontender, Normal Inspection Extremities: Nontender, No edema Skin: Normal color, No rash, - - Ulceration covering the heel of the left foot. There is black eschar present. Foul smell present. Otherwise sensation intact. 2+ DP pulse. There is skin peeling of the plantar aspect of the right foot. No evidence of infection present. Neurological: Alert, Oriented x3, Normal Strength, Normal Sensation Psychological: Normal affect, Normal Mood Diagnostic/Tx/Re-eval - Medical Decision Making Patient presents to the ED for ulceration/infection of his left heel. Upon arrival to the emergency department he is mildly tachycardic/tachypneic. He is afebrile. Satting well on room air. He does have a ulceration to the left heel. Since patient is homeless I did have some concern that this could have been frozen at some point. He is also a diabetic and likely having a diabetic foot ulcer infection. Will cover with broad-spectrum antibiotics. Basic lab work along with ESR/CRP being obtained. Blood cultures obtained. Will get a x-ray of the foot to evaluate for osteomyelitis. Patient's lab work revealed a significantly elevated CRP. He also has a leukocytosis. With the initial tachycardia we will treat him as sepsis. He is started on a 30 cc/kg bolus of IV fluids and broad-spectrum antibiotics. His lactic acid did come back high. X-ray did not show any evidence of osteomyelitis. Will likely need further imaging to better delineate this. His glucose is in the 400s but does not have an elevated anion gap. He otherwise has been stable throughout ED stay. Will bring him into the hospital for further evaluation and management. Patient understands and is agreeable with this plan. - Critical Care Time Critical care time (excluding procedures): 30-74 minutes, Discussing w/Patient &/or Family/Billiard Table Assembler, Discussing w/Consultants, Arranging Admission or Transfer ED Disposition - Plan for ED Patient: Disposition: Acute Care Hospital [facility] Diagnosis: Severe sepsis, Wound of foot, Hyperglycemia, Noncompliance with medication regimen
[2020-10-03 03:31] LABS: Erythrocyte Sedimentation Rate 21 mm/hr (0-20)
[2020-10-03 03:34] LABS: Absolute Lymphocyte Count 1.04 X10^3/uL (0.83-4.51); Absolute Neutrophil Count 13.7 X10^3/uL (2.0-7.7); Basophil# 0.05 X10^3/uL; Basophil% 0.3 % (0-1); Eosinophil# 0.02 X10^3/uL; Eosinophils% 0.1 % (0-5); Hematocrit 40.6 % (40-54); Hemoglobin 13.3 g/dL (13.0-16.5); Lymphocyte # 1.04 X10^3/ul (4.0); Lymphocyte % 6.6 % (19-41); Mean Corp Hgb Conc 32.8 g/dL (32-36); Mean Corpuscular Hgb 27.8 pg (27.0-32.0); Mean Corpuscular Volume 84.8 fL (80-94); Mean Platelet Vol. 9.9 fl (6.2-12.0); Monocyte# 1.02 X10^3/uL; Monocyte% 6.4 % (0-10); NRBC Flagged by Analyzer 0 % (0-5); Neutrophil # 13.65 X10^3/uL (2.7-7.7); Neutrophil % 86.3 % (47-70); Platelet Count 364 K/mm3 (150-450); RBC Distribution Width CV 12.6 % (11.6-14.6); RBC Distribution Width SD 38.7 fl (35.1-43.9); Red Blood Count 4.79 M/mm3 (4.6-6.2); White Blood Count 15.8 K/mm3 (4.4-11.0)
[2020-10-03 03:44] LABS: Anion Gap 8 (5-15); BUN 9 mg/dL (7-18); BUN/Creat Ratio 8.2 RATIO (10-20); Chloride 93 mmol/L (98-107); EST Glomerular Filtration Rate 72 mL/min (>60); Est Glom Filt Rate - Afr Amer 87 mL/min (>60); Estimated Creatinine Clearance 72.82 ml/min; Glucose 441 mg/dL (74-106); Potassium 3.8 mmol/L (3.5-5.1); Sodium Level 129 mmol/L (136-145)
[2020-10-03] MEDS: 0.9% Normal Saline 1,000 ML 999 ML IV (03:59)
[2020-10-03 04:04] LABS: Lactic Acid 3.9 mmol/L (0.4-1.9)
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
--- NOTE | 2020-10-03 05:30 | NURSING ---
$140 snyder counted with patient and placed back in pt coat pocket in ICU5 closet.
--- NOTE | 2020-10-03 05:56 | MRI_ITS ---
STUDY: MRI LEFT REARFOOT WITHOUT CONTRAST REASON FOR EXAM: Male, 60 years old. Open wound left heel, osteomyelitis. TECHNIQUE: Standardized fat and water weighted pulse sequences were obtained in all 3 orthogonal planes. COMPARISON: X-ray FINDINGS: There is a focal defect of the soft tissues on the plantar aspect of the heel. There is marrow edema of the inferior calcaneus, series 6 image 15 and 16. Normal posterior tibialis tendon. Normal flexor digitorum longus tendon. Normal flexor hallucis longus tendon. Normal peroneus longus and brevis tendons. Normal tibialis anterior tendon. Normal extensor hallucis longus tendon. Normal extensor digitorum longus tendons. There is tear of the Achilles tendon, 1.0 cm proximal to the insertion with retraction of 5.1 cm, series 6 image through . Normal plantar fascia. Atrophy of the intrinsic muscles of the rearfoot. Normal distal tibiofibular syndesmotic ligamentous complex. Normal lateral ligamentous complex. Normal subtalar ligaments and sinus tarsi. Normal deltoid ligamentous complexes. Normal plantar calcaneonavicular (spring) ligament. Effusion of the tibiotalar articulation. Normal talar dome. Normal subtalar articulations. Normal talonavicular articulation. Normal calcaneocuboid articulation. Normal navicular-cuneiform articulations. 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 Achilles tendon tear. Electronically Signed: Tarik Smith MD at 15:10 EST , Service support ,
[2020-10-03] MEDS: 0.9% Normal Saline 1,000 ML 75 ML IV (06:16)
[2020-10-03] MEDS: Insulin Lispro 100 UNIT/ML INSULN.PEN SC ×4 (06:17→22:29)
--- NOTE | 2020-10-03 06:37 | CON.PCM_ITS ---
Reason for Consult Date of Consultation: 10/03/20 Reason for Consultation: Severe sepsis History of Present Illness: The patient is a 60-year-old male, with a history as outlined below, who presented to the emergency department on October 03 with a left lower extremity ulceration along with an inability to bear weight and/or ambulate. The patient reported that approximately 1 week ago he noticed a wound that had developed over the left heel. This wound has progressively worsened over the course of the last week to the point that the patient can no longer ambulate without significant pain. The patient is homeless and currently lives within the confines of his automobile. He does have a known history of diabetes mellitus, but has not been on any medications for multiple years. He does not currently have a primary care doctor. He denies any history of tobacco dependency, illicit drug use or alcohol dependency. On further review of the patient's medical history, he does apparently have a history of mild COPD based upon pulmonary function studies completed in 2016. The patient also appears to have a history of obstructive sleep apnea and prior pulmonary emboli in 2014. On presentation to the emergency department, the patient was noted to be afebrile and hemodynamically stable. He was maintaining appropriate oxygen saturations on room air. Laboratory evaluation revealed an elevated white blood cell count to 16,000. Sed rate was elevated to 21. Chemistry profile was notable for a sodium of 129, chloride of 93 and creatinine of 1.10. Glucose was elevated to 441. Lactate was increased to 3.9. CRP was elevated to 74. Foot x-ray revealed a large soft tissue ulceration without definitive evidence of osteomyelitis. The patient received supplemental IV fluid hydration and was placed on broad-spectrum antimicrobials. He was subsequently admitted to the medical intensive care unit for further management. MRI foot in consultation to podiatry is currently pending. Past Medical History Past Medical History (Chronic Problems): Chronic Problems (Last Updated 10/03/20 @ 09:[address] Deann Calloway DPM) Diabetes (Chronic) COPD (chronic obstructive pulmonary disease) (Chronic) Rheumatoid arthritis (Chronic) Medical History: Medical History (Last Updated 10/03/20 @ 09:[address] Deann Calloway DPM) History of pulmonary embolism Z86.711 Allergies No Known Allergies Allergy (Verified 09/08/20 14:32) Home Medications: Ambulatory Orders Medication Instructions Recorded NK 09/08/20 Surgical History: - - Pins in neck Smoking Status: Former smoker Alcohol: None Drugs: None - *Family History Paternal History Items: - - His father from an industrial accident. Maternal History Items: - - Denies knowledge of maternal medical history Review of Systems Constitutional: Denies: Chills, Fever Eyes: Denies: Blurred vision, Double vision HEENT: Denies: Head Aches, Sinus Congestion, Sinus Drainage Cardiovascular: Denies: Chest Pain, Palpitations Respiratory: Denies: Cough, Shortness of breath at rest, Sputum production Genitourinary: Denies: Dysuria Musculoskeletal: Denies: Joint Pain, Joint Tenderness Skin: Reports: Skin Changes, Wounds Neurological: Denies: Numbness, Tingling, Focal weakness Psychiatric: Denies: Anxiety, Depression, Homicidal Ideations, Suicidal Ideations Hematologic/ Lymphatic: Denies: Easy Bruising, Easy Bleeding Patient Problems: Active and Suspected Problems (Last Updated 10/03/20 @ 09:[address] Deann Calloway, [facility]) Severe sepsis (Acute) Wound of foot (Acute) Hyperglycemia (Acute) Noncompliance with medication regimen (Acute) Infection of left foot (Acute) 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 (Acute) Left foot pain (Acute) Objective: The patient's most recent lab work, culture data and imaging studies have all been personally reviewed. Blood cultures are currently pending. - Physical Exam Vitals/I&O's: Vital Signs Temp Pulse Resp BP Pulse Ox 98.8 F 97 22 H 108/55 L 98 10/03/20 05:39 10/03/20 06:30 10/03/20 06:30 10/03/20 06:30 10/03/20 06:30 Oxygen Delivery Method Room Air Weight: 168 lb 6.931 oz Body Mass Index (BMI) 24.8 Intake and Output for Last 24 Hours 10/01/20 10/02/20 10/03/20 23:59 23:59 23:59 Intake Total 1050 / 1050 Output Total 0 / 0 Balance 1050 / 1050 General: Alert, Cooperative, No apparent distress HEENT: Atraumatic, PERRLA, Normocephalic Oral: No Gingival or Mucosal Lesions/ Ulcerations Neck: Supple, No Nodes, Trachea Midline Lungs: Normal air movement, No rhonchi, No wheeze, No rales Cardiovascular: Regular rate, Regular Rhythm, No murmurs Abdomen: Bowel Sounds Present, Soft, Non Tender Extremities: No clubbing, No cyanosis Skin: - - There is a large circumscribed left heel ulcer with black eschar present Musculoskeletal: No Muscle Wasting Lymphatic: No Cervical, Supraclavicular, or Inguinal Adenopathy Neurological: Cranial nerves II-XII grossly intact, Neuro grossly intact Psych/Mental Status: Alert and oriented to time, place, person, mood and affect Labs (Last 48 Hours) 10/03/20 10/03/20 10/03/20 03:10 03:10 03:10 WBC 15.8 H RBC 4.79 Hgb 13.3 Hct 40.6 MCV 84.8 MCH 27.8 MCHC 32.8 RDW Std Deviation 38.7 RDW Coeff of Cheri 12.6 Plt Count 364 MPV 9.9 Immature Gran % (Auto) 0.300 Neut % (Auto) 86.3 H Lymph % (Auto) 6.6 L Wharton % (Auto) 6.4 Eos % (Auto) 0.1 Baso % (Auto) 0.3 Absolute Neuts (auto) 13.7 H Absolute Lymphs (auto) 1.04 Nucleated RBC % 0 ESR 21 H Sodium 129 L Potassium 3.8 Chloride 93 L Carbon Dioxide 28.0 Anion Gap 8 BUN 9 Creatinine 1.10 Estim Creat Clear Calc 72.82 Est GFR (MDRD) Af Amer 87 Est GFR (MDRD) Non-Af 72 BUN/Creatinine Ratio 8.2 L Glucose 441 H Lactic Acid 3.9 H* Calcium 9.0 C-React Prot Ext Range 73.70 H MRSA (PCR) 10/03/20 05:55 WBC RBC Hgb Hct MCV MCH MCHC RDW Std Deviation RDW Coeff of Cheri Plt Count MPV Immature Gran % (Auto) Neut % (Auto) Lymph % (Auto) Wharton % (Auto) Eos % (Auto) Baso % (Auto) Absolute Neuts (auto) Absolute Lymphs (auto) Nucleated RBC % ESR Sodium Potassium Chloride Carbon Dioxide Anion Gap BUN Creatinine Estim Creat Clear Calc Est GFR (MDRD) Af Amer Est GFR (MDRD) Non-Af BUN/Creatinine Ratio Glucose Lactic Acid Calcium C-React Prot Ext Range MRSA (PCR) Pending Clinical Impression(s) from Imaging Studies Foot X-Ray 10/03/20 02:56 IMPRESSION: Large soft tissue ulceration of the heel without definite evidence for osteomyelitis. Electronically Signed: Anne Kwok MD at 4:04 EST , Service support , Current Medications Acetaminophen (Acetaminophen 325 Mg Tablet) 650 mg PO Q6H PRN PRN PRN Reason: Pain Score 1-10/Temp > 100.7 F Dextrose (Dextrose 50%-Water 25 Gm/50 Ml Disp.Syrin) 0 gm IV X1 PRN; Protocol PRN Reason: Hypoglycemia Glucagon (Glucagon 1 Mg/Ml Syringe) 1 mg IM .X1 PRN PRN Reason: Hypoglycemia Sodium Chloride () 250 mls @ 15 mls/hr IV .[id number] PRN PRN Reason: Saline Flush Sodium Chloride () 250 mls @ 15 mls/hr IV .[id number] PRN PRN Reason: Additional IVPB Infusion Sodium Chloride () 1,000 mls @ 75 mls/hr IV .[id number] [facility] Last Admin: 10/03/20 06:16 Dose: 75 mls/hr Documented by: Piperacillin Sod/Tazobactam (Sod 3.375 gm/ Sodium Chloride) 50 mls @ 12.5 mls/hr IV Q8 TEDDY Vancomycin IV Pharmacy to Dose (1 ea/ Sodium Chloride) 500 mls @ 250 mls/hr IV X1 PRN; Protocol PRN Reason: Rx to Dose Vancomycin HCl (Vancomycin) 1,000 mg in 200 mls @ 200 mls/hr IV Q12H [facility] Insulin Glargine (Insulin Glargine 100 Units/Ml Pen) 15 units SC DAILY [facility] Last Admin: 10/03/20 06:29 Dose: Not Given Documented by: Insulin Human Lispro (Insulin Lispro 100 Unit/Ml Insuln.Pen) 0 unit SC Q6 TEDDY; Protocol Last Admin: 10/03/20 06:17 Dose: 8 units Documented by: Melatonin (Melatonin 3 Mg Tablet) 3 mg PO QHS PRN PRN PRN Reason: INSOMNIA Morphine Sulfate (Morphine 2 Mg/Ml Syringe) 2 mg IV Q4H PRN PRN PRN Reason: pain 6-10/10 Ondansetron HCl (Ondansetron 4 Mg/2 Ml Vial) 4 mg IV Q8H PRN PRN PRN Reason: NAUSEA/VOMITING Senna/Docusate Sodium (Senna/Docusate Sodium 1 Tablet) 2 tablet PO BID PRN PRN PRN Reason: Constipation Sodium Chloride (0.9% Saline Lock 10 Ml Syringe) 10 - 40 ml IV UD PRN PRN Reason: SALINE FLUSH Assessment/Plan Active and Suspected Problems (Last Updated 10/03/20 @ 09:[address] Deann Calloway, [facility]) Severe sepsis (Acute) Wound of foot (Acute) Hyperglycemia (Acute) Noncompliance with medication regimen (Acute) Infection of left foot (Acute) 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 (Acute) Left foot pain (Acute) RECOMMENDATIONS: 1. Continue supplemental IV fluid hydration, while the patient remains n.p.o. 2. Continue broad-spectrum antimicrobials, pending infectious work-up. 3. Repeat lactate level. 4. Start sliding scale insulin coverage every 6 hours, while the patient is n.p.o. 5. Podiatry consultation is pending. 6. Obtain MRI foot. IMPRESSIONS: 1. Severe sepsis secondary to left lower extremity diabetic foot ulcer The patient was admitted to the ICU with severe sepsis secondary to a left heel ulcer, in the setting of diabetes mellitus. The patient has received adequate fluid resuscitation and remains hemodynamically stable. Recommend continuing broad-spectrum antimicrobials, pending infectious work-up. Plan to repeat lactate level. Consultation to podiatry is pending. MRI foot to further clarify if osteomyelitis is present. 2. History of diabetes mellitus/inadequate material resources (homelessness)/documented history of mild COPD/BENNIE/history of VTE Complicates care, management, recovery and prognosis. Continue sliding scale insulin coverage every 6 hours for now, given the patient's n.p.o. status. This note was generated with [employer] dictation software. It may contain incorrect words, spelling, and punctuation that were not noted in checking the note before signing. Inpatient E&M: 94063 Init Hosp L3
--- NOTE | 2020-10-03 06:41 | PCM.RX.CS ---
Consult Pharmacy has been consulted to manage selected antiobiotic: Vancomycin Type of Consult: New start Prior Doses of Antibiotics Received/Current Regimen: Medications Discontinued Medications Vancomycin HCl 1,500 mg/ (Sodium Chloride) 530 mls @ 250 mls/hr IV X1 ONE Stop: 10/03/20 06:37 Last Admin: 10/03/20 04:31 Dose: 250 mls/hr Documented by: Labs: Sodium 129 mmol/L (136-145) L 10/03/20 03:10 Potassium 3.8 mmol/L (3.5-5.1) 10/03/20 03:10 Chloride 93 mmol/L (98-107) L 10/03/20 03:10 Carbon Dioxide 28.0 mmol/L (21.0-32.0) 10/03/20 03:10 Anion Gap 8 (5-15) 10/03/20 03:10 BUN 9 mg/dL (7-18) 10/03/20 03:10 Creatinine 1.10 mg/dL (0.70-1.30) 10/03/20 03:10 Est GFR (MDRD) Af Amer 87 mL/min (>60) 10/03/20 03:10 Est GFR (MDRD) Non-Af 72 mL/min (>60) 10/03/20 03:10 BUN/Creatinine Ratio 8.2 RATIO (10-20) L 10/03/20 03:10 Glucose 441 mg/dL (74-106) H 10/03/20 03:10 Weight used for dosin kg Estimated Creatinine Clearance: 70 Goal Trough: 15-20 mcg/mL Pharmacy Plan for Drug Dosinmg IV given in Ed, continue 1000mg IV q12h with trough prior to 4th dose. Pharmacy Service will continue to monitor and adjust dosing as required. Follow-Up Labs: Trough Vancomycin - 13/04 @ 1630
[2020-10-03 07:22] LABS: Reflex Lactate? Y
[2020-10-03 07:22] LABS: M R Staph aureus DNA By PCR Negative (Negative); Probe Check PASS; Specimen Processing Control PASS
[2020-10-03 08:01] LABS: Bedside Glucose 327 mg/dL (70-110)
[2020-10-03 08:17] LABS: Lactic Acid 1.7 mmol/L (0.4-1.9)
--- NOTE | 2020-10-03 09:17 | PCM.CONS.GEN ---
Problem List (1) Infection of left foot Status: Acute (2) 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 Status: Acute (3) Left foot pain Status: Acute Reason for Consult Date of Consultation: 10/03/20 Reason for Consultation: Infected left heel ulcer History of Present Illness: The patient is a 60 year old M who was seen bedside this morning for a left foot infection. He relates the onset of his wound and scab was 1 week ago. He is not aware if he had a trauma or stepped on a foreign body. His pain is intense and exacerbated with weightbearing activity. He denies chills at this time. He denies history of other recent lower extremity wounds, rest paresthesias, or claudication type symptoms. He is a regular community ambulator. He is currently homeless and is living in his automobile. He has an extensive history of smoking over a pack a day and using crystal meth; he denies current use. Past Medical History Past Medical History (Chronic Problems): Chronic Problems (Last Updated 10/03/20 @ 09:[address] Deann Calloway DPM) Diabetes (Chronic) COPD (chronic obstructive pulmonary disease) (Chronic) Rheumatoid arthritis (Chronic) Medical History: Medical History (Last Updated 10/03/20 @ 09:[address] Deann Calloway DPM) History of pulmonary embolism Z86.711 Allergies No Known Allergies Allergy (Verified 09/08/20 14:32) Home Medications: Ambulatory Orders Medication Instructions Recorded NK 09/08/20 Surgical History: - - Pins in neck Lives: Alone, Homeless Smoking Status: Former smoker Alcohol: None Drugs: None, - - Prior crystal meth user - *Family History Paternal History Items: - - His father from an industrial accident. Maternal History Items: - - Denies knowledge of maternal medical history Review of Systems Constitutional: Reports: Fatigue. Denies: Chills Cardiovascular: Denies: Chest Pain, Claudication, Orthopnea Respiratory: Denies: Cough Gastrointestinal: Denies: Nausea, Vomiting Musculoskeletal: Reports: Foot Pain. Denies: Joint Pain, Leg Pain Skin: Reports: Skin Changes, Wounds Neurological: Reports: Balance problems. Denies: Numbness, Tingling Psychiatric: Denies: Anxiety Hematologic/ Lymphatic: Reports: Hx of blood clot Patient Problems: Active and Suspected Problems (Last Updated 10/03/20 @ 09:[address] Deann Calloway, [facility]) Severe sepsis (Acute) Wound of foot (Acute) Hyperglycemia (Acute) Noncompliance with medication regimen (Acute) Infection of left foot (Acute) 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 (Acute) Left foot pain (Acute) - Physical Exam Vitals/I&O's: Vital Signs Temp Pulse Resp BP Pulse Ox 98.8 F 97 15 97/55 L 97 10/03/20 05:39 10/03/20 07:00 10/03/20 07:00 10/03/20 07:00 10/03/20 07:00 Oxygen Delivery Method Room Air Weight: 76.4 kg Body Mass Index (BMI) 24.8 Intake and Output for Last 24 Hours 10/01/20 10/02/20 10/03/20 23:59 23:59 23:59 Intake Total 3080 / 3080 Output Total 0 / 0 Balance 3080 / 3080 General: Alert, Oriented x3, Cooperative HEENT: Atraumatic Extremities: Capillary Refill Less than 3 Seconds - Capillary fill time is also brisk adjacent to the plantar heel eschar, No Calf Tenderness - Negative Deb and Jameson sign bilateral, Peripheral Pulses Normal - 2 out of 4 bilateral DP pulses and right PT pulse. Nonpalpable left PT pulse with notable adjacent moderate edema at this level, Tenderness - Pain with ulcer eschar manipulation and palpation. There is bogginess on palpation to the eschar plug at the plantar heel and upon debridement there is no bogginess or fluctuance to the adjacent tissue., - - Compartments remain soft to the foot ankle and lower leg, left Skin: Ulcer/ Wound - 6 cm with no depth diameter fibronecrotic eschar with significant odor and devitalized deep adipose tissue and fascial tissue exposed. Upon sharp excisional aggressive debridement post debridement measurement 6.2 x 6.2 x 1.6 cm with no additional purulence on expression. Deep tissue is exposed, - - There is not direct probing or visualization of the bone however it is known to be in close proximity Musculoskeletal: No Muscle Wasting, - - No pain to palpation along the flexor tendon at the ankle level for posterior muscle compartment or lateral compartment or dorsal foot or anterior compartment. There are some pain on palpation along the plantar arch of the foot adjacent to this heel ulcer site. There is no visualized foreign body Neurological: Sensory exam intact to light touch and pain Psych/Mental Status: Normal Affect, Appropriate, Anxious Laboratory Results 10/03/20 03:10: WBC 15.8 H, RBC 4.79, Hgb 13.3, Hct 40.6, MCV 84.8, MCH 27.8, MCHC 32.8, RDW Std Deviation 38.7, RDW Coeff of Cheri 12.6, Plt Count 364, MPV 9.9, Immature Gran % (Auto) 0.300, Neut % (Auto) 86.3 H, Lymph % (Auto) 6.6 L, [place]on % (Auto) 6.4, Eos % (Auto) 0.1, Baso % (Auto) 0.3, Absolute Neuts (auto) 13.7 H, Absolute Lymphs (auto) 1.04, Nucleated RBC % 0, ESR 21 H 10/03/20 03:10: Sodium 129 L, Potassium 3.8, Chloride 93 L, Carbon Dioxide 28.0, Anion Gap 8, BUN 9, Creatinine 1.10, Estim Creat Clear Calc 72.82, Est GFR (MDRD) Af Amer 87, Est GFR (MDRD) Non-Af 72, BUN/Creatinine Ratio 8.2 L, Glucose 441 H, Calcium 9.0, C-React Prot Ext Range 73.70 H 10/03/20 03:10: Lactic Acid 3.9 H* 10/03/20 03:10: Hemoglobin A1c Pending 10/03/20 05:55: MRSA (PCR) Negative 10/03/20 06:08: POC Glucose 327 H 10/03/20 07:30: Lactic Acid 1.7 Current Medications Acetaminophen (Acetaminophen 325 Mg Tablet) 650 mg PO Q6H PRN PRN PRN Reason: Pain Score 1-10/Temp > 100.7 F Dextrose (Dextrose 50%-Water 25 Gm/50 Ml Disp.Syrin) 0 gm IV X1 PRN; Protocol PRN Reason: Hypoglycemia Glucagon (Glucagon 1 Mg/Ml Syringe) 1 mg IM .X1 PRN PRN Reason: Hypoglycemia Sodium Chloride () 250 mls @ 15 mls/hr IV .[id number] PRN PRN Reason: Saline Flush Sodium Chloride () 250 mls @ 15 mls/hr IV .[id number] PRN PRN Reason: Additional IVPB Infusion Sodium Chloride () 1,000 mls @ 75 mls/hr IV .[id number] [facility] Last Admin: 10/03/20 06:16 Dose: 75 mls/hr Documented by: Piperacillin Sod/Tazobactam (Sod 3.375 gm/ Sodium Chloride) 50 mls @ 12.5 mls/hr IV Q8 TEDDY Vancomycin IV Pharmacy to Dose (1 ea/ Sodium Chloride) 500 mls @ 250 mls/hr IV X1 PRN; Protocol PRN Reason: Rx to Dose Vancomycin HCl (Vancomycin) 1,000 mg in 200 mls @ 200 mls/hr IV Q12H [facility] Insulin Glargine (Insulin Glargine 100 Units/Ml Pen) 15 units SC DAILY [facility] Last Admin: 10/03/20 06:29 Dose: Not Given Documented by: Insulin Human Lispro (Insulin Lispro 100 Unit/Ml Insuln.Pen) 0 unit SC Q6 TEDDY; Protocol Last Admin: 10/03/20 06:17 Dose: 8 units Documented by: Melatonin (Melatonin 3 Mg Tablet) 3 mg PO QHS PRN PRN PRN Reason: INSOMNIA Morphine Sulfate (Morphine 2 Mg/Ml Syringe) 2 mg IV Q4H PRN PRN PRN Reason: pain 6-10/10 Ondansetron HCl (Ondansetron 4 Mg/2 Ml Vial) 4 mg IV Q8H PRN PRN PRN Reason: NAUSEA/VOMITING Senna/Docusate Sodium (Senna/Docusate Sodium 1 Tablet) 2 tablet PO BID PRN PRN PRN Reason: Constipation Sodium Chloride (0.9% Saline Lock 10 Ml Syringe) 10 - 40 ml IV UD PRN PRN Reason: SALINE FLUSH Assessment/Plan All Active Problems (Last Updated 10/03/20 @ 09:[address] Deann Calloway, [facility]) Severe sepsis (Acute) Wound of foot (Acute) Hyperglycemia (Acute) Noncompliance with medication regimen (Acute) Infection of left foot (Acute) 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 (Acute) Left foot pain (Acute) Sepsis Left foot infection Left plantar heel eschar with wound and necrotic fascial tissue Osteomyelitis work-up in process Uncontrolled diabetes with current hyperglycemia History of tobacco and drug abuse Other comorbidities noted I reviewed and discussed his case. He is afebrile and his vital signs are demonstrating that he is hemodynamically stable. He is alert and able to participate in the exam. His white blood cell count at time of admission was 15.8 and he has elevated ESR (21) and C-reactive protein (73.7). His lactic acid is downtrending. His x-ray demonstrates air adjacent to his ulcer site which is in a localized area that does correspond with his clinical infection. There is no additional soft tissue emphysema extending into the adjacent areas. There is not any osseous destruction, foreign body, acute fracture or dislocations. His MRI this morning is pending and will be completed soon. Verbal consent was obtained for subcutaneous and fascial excisional debridement performed bedside. This was done with a 15 blade, medical scissor, and pickup. An aggressive amount of devitalized tissue was removed and this was irrigated with normal saline. The area was also further cleaned with chlorhexidine and this wound was packed with a saline and Betadine wet-to-dry dressing. Pressure was applied to maintain hemostasis and this was considered controlled. Deep wound cultures were obtained; aerobic, anaerobic, mrsa pcr. It is noted he already had blood cultures and this is pending. I recommend he continues on broad-spectrum IV antibiotics including vancomycin and Zosyn. Surgical debridement would be beneficial and this will be planned within the next day. Preoperative orders will be placed once the time is confirmed and after MRI results are reviewed. Medical management per primary team and physical education teacher as noted. Hemoglobin A1c was ordered and the results is pending. Thank you for the consultation. Please do not hesitate to call if you have any questions. Deann Calloway DPM, [facility] [phone]
[2020-10-03 09:24] LABS: Hemoglobin A1c 12.8 % (3.8-5.6)
--- NOTE | 2020-10-03 10:38 | NURSING ---
PT being placed in MRI machine now. RN remains in MRI w/patient to monitor.
--- NOTE | 2020-10-03 12:20 | CASEMGMT ---
SALMA MCCAULEY Face to Face with patient for initial transition planning/care coordination assessment. RN CM introduced self and role at [facility]. Patient lying in bed, alert and oriented. Patient willing to participate in assessment and is able to answer all questions appropriately. Care providers, pharmacy, and demographics verified. Patient wishes to discharge to his truck where he has been staying. Patient agreeable to talk with SW regarding housing resources. Patient states he has no further needs or concerns at this time. SW updated regarding homelessness and request for additional resources. CM to follow for discharge planning needs that may arise. PCP: None, CM provided list of local PCPs Specialists: none Preferred Pharmacy: [facility] Insurance: [employer] Prescription Benefit: yes Living Will/HPOA: none LNOK: friend listed as contact. Patient states he has cousin that could assist with wound care Living Arrangements: Patient currently staying in his truck and state he has application for [place] but has not yet completed. SW referral made. Transportation: self DME/HHC: Patient denies DME or previous HHC. Disposition Plan: TBD by course of treatment. Possible wound care and IV ATBs at discharge. Sandra ROSENBAUM, RN, CM
[2020-10-03 12:30] LABS: Bedside Glucose 263 mg/dL (70-110)
[2020-10-03 14:05] LABS: M R Staph aureus DNA By PCR Negative (Negative); Probe Check PASS; Specimen Processing Control PASS; Staph aureus DNA By PCR POSITIVE (Negative)
--- NOTE | 2020-10-03 16:38 | PCM.HOSP.N ---
Hospitalist Note Patient was seen and examined today briefly in the ICU, he has no complaints to this examiner. I talked briefly with Dr. Calloway about his medical care, she would like to take him to surgery tomorrow to clean his foot wound out. Patient has a past history of PE but no history of coronary artery disease. There is an entry from several years ago concerning a non-STEMI but this looks like this was removed and I reviewed Dr. Garcia's progress note from around that time and he does not mention a non-STEMI. Patient denies any ongoing chest pain or shortness of breath. I will obtain a twelve-lead EKG today. I think it is likely that he will be stable for surgery tomorrow morning, his major risk factor of course is type 2 diabetes. At the present time, patient appears to be medically stable for surgery.
[2020-10-03 17:45] LABS: Bedside Glucose 232 mg/dL (70-110)
[2020-10-03] MEDS: Vancomycin IV 1,000 MG/200 ML BAG 200 MG IV (17:46)
[2020-10-03] MEDS: Glucerna Shake 120 ML LIQUID PO ×2 (17:46→22:24)
[2020-10-03] MEDS: 0.9% Saline Lock 10 ML Syringe IV (22:24)
[2020-10-03] MEDS: Acetaminophen 325 MG Tablet 650 MG PO (22:26)
[2020-10-03 22:35] LABS: Bedside Glucose 268 mg/dL (70-110)
[2020-10-04] VITALS (19 sets, daily range): BP systolic 86–147; BP diastolic 53–80; PULSE 69–92; RESP 12–25; TEMP 36.6–37.4; O2SAT 95–100; BMI 25.0
--- NOTE | 2020-10-04 | BON_PTH ---
PATIENT: LIZETH BURGOS LOC: [facility] U#:[id number] AGE/SX: 60/M ROOM: AL310 RE10/03/[address]: Dr. Jose Nettles DO : 1960 BED: 1 DIS: 10/06/2020 SPEC #: [id number] RECD: 10/05/20 07:43 STATUS: WALTER REQ #: [id number] KODI: 10/04/20 00:[address]: Deann Calloway DEPT: SURGICAL PATHOLOGY RECD BY: Felipe Beal ENTERED: 10/05/20 08:53 SP TYPE: Bone OTHR DR: DO Dr. Jose Kennedy DO Dr. Joseph Agyepong, MD Dr. Jeanna Fascione, DPM No Primary Care Phys Tissues: Bone of foot, NOS Procedures: Decalcification bone/plaque Surgery Specimen Level IV Comments: @ Ordering doctor for DEC edited from to @ mikey LUIS at 10/05/20 0942 @ Ordering doctor for SUIII edited from to @ by JANELLE at 10/05/20 0942 @ Submitting doctor edited from to DR.JFASCI Taisha LUIS at 10/05/20 0942 HEADER OPERATION: Debridement wound, bone biopsy PRE-OP DIAGNOSIS: Wound of foot, infection left foot; ulcer left foot with necrosis of muscle; left foot pain TISSUE SUBMITTED: Left heel bone biopsy MICROSCOPIC DIAGNOSIS Left heel bone, biopsy: A piece of bone with attached cartilaginous and fibroconnective tissue with reactive changes. Negative for acute osteomyelitis. See comment. MIGUEL ANGEL:theresa 10/08/20 COMMENT Clinical correlation and appropriate follow up are necessary. MICROSCOPIC DESCRIPTION Slides are reviewed. GROSS DESCRIPTION Received in fixative is one container labeled with the patient's name and designated left heel bone biopsy. The specimen consists of a single irregular fragment of dodd bone measuring 0.7 x 0.6 x 0.2 cm. The specimen is totally submitted in one cassette after decalcification. / AM:theresa 10/05/20 TC:5 CPT: 93418, 42250
[2020-10-04] MEDS: 0.9% Normal Saline 1,000 ML 75 ML IV ×3 (04:50→23:30)
[2020-10-04] MEDS: Vancomycin IV 1,000 MG/200 ML BAG 200 MG IV ×2 (04:52→17:57)
[2020-10-04] MEDS: 0.9% Saline Lock 10 ML Syringe IV ×2 (04:53→05:13)
[2020-10-04 05:01] LABS: Absolute Lymphocyte Count 1.68 X10^3/uL (0.83-4.51); Absolute Neutrophil Count 7.8 X10^3/uL (2.0-7.7); Basophil# 0.04 X10^3/uL; Basophil% 0.4 % (0-1); Eosinophils% 1.9 % (0-5); Hematocrit 35.3 % (40-54); Hemoglobin 11.5 g/dL (13.0-16.5); Lymphocyte # 1.68 X10^3/ul (4.0); Mean Corp Hgb Conc 32.6 g/dL (32-36); Mean Corpuscular Hgb 28.1 pg (27.0-32.0); Mean Corpuscular Volume 86.3 fL (80-94); Mean Platelet Vol. 9.2 fl (6.2-12.0); Monocyte# 0.79 X10^3/uL; Monocyte% 7.5 % (0-10); NRBC Flagged by Analyzer 0 % (0-5); Neutrophil # 7.75 X10^3/uL (2.7-7.7); Neutrophil % 73.8 % (47-70); Platelet Count 261 K/mm3 (150-450); RBC Distribution Width CV 12.6 % (11.6-14.6); RBC Distribution Width SD 39.8 fl (35.1-43.9); Red Blood Count 4.09 M/mm3 (4.6-6.2); White Blood Count 10.5 K/mm3 (4.4-11.0)
[2020-10-04] MEDS: Morphine 2 MG/ML Syringe IV ×3 (05:13→23:18)
[2020-10-04 05:45] LABS: Anion Gap 1 (5-15); BUN 13 mg/dL (7-18); BUN/Creat Ratio 19.3 RATIO (10-20); Calcium,Total 8.4 mg/dL (8.5-10.1); Chloride 103 mmol/L (98-107); Creatinine, Serum 0.68 mg/dL (0.70-1.30); EST Glomerular Filtration Rate 127 mL/min (>60); Est Glom Filt Rate - Afr Amer 154 mL/min (>60); Estimated Creatinine Clearance 114.08 ml/min; Glucose 198 mg/dL (74-106); Potassium 3.4 mmol/L (3.5-5.1); Sodium Level 137 mmol/L (136-145)
--- NOTE | 2020-10-04 05:46 | EKG12_ITS ---
Test Reason : AM EKG Blood Pressure : / mmHG Vent. Rate : 076 BPM Atrial Rate : 076 BPM P-R Int : 128 ms QRS Dur : 090 ms QT Int : 392 ms P-R-T Axes : 077 057 077 degrees QTc Int : 441 ms Normal sinus rhythm Septal CO, age undetermined, cannot be excluded Confirmed by ALEKSEY KEMP, WINNIE ([id number]), copy editor HARSHAL MADRIGAL ([id number]) on 10/07/2020 1:27:25 PM Referred By: DEIDRA Confirmed By:WINNIE RYDER MD
--- NOTE | 2020-10-04 05:50 | PCM.PN.INT ---
Subjective: The patient was seen and examined at the bedside this morning. Events from the last 24 hours have been reviewed. The patient is currently afebrile, hemodynamically stable and maintaining appropriate oxygen saturations on 2 L/min via nasal cannula. MRI yesterday did reveal osteomyelitis of the calcaneus with soft tissue injury. The patient did undergo bedside subcutaneous and fascial excisional debridement yesterday. There are tentative plans for surgical debridement this morning. Objective: The patient's most recent lab work, culture data and imaging studies have all been personally reviewed. Blood culture dated October 03 was positive for group B streptococcus. General: Alert, Cooperative, No apparent distress HEENT: Atraumatic, PERRLA, Normocephalic Oral: No Gingival or Mucosal Lesions/ Ulcerations Neck: Supple, No Nodes, Trachea Midline Lungs: Normal air movement, No rhonchi, No wheeze, No rales Cardiovascular: Regular rate, Regular Rhythm Abdomen: Bowel Sounds Present, Soft, Non Tender Extremities: No clubbing, No cyanosis, No edema Skin: - - No significant change from previous Musculoskeletal: No Tenderness to Palpation of Joints or Extremities Lymphatic: No Cervical, Supraclavicular, or Inguinal Adenopathy Neurological: Cranial nerves II-XII grossly intact, Neuro grossly intact Psych/Mental Status: Alert and oriented to time, place, person, mood and affect Vital Signs Temp Pulse Resp BP Pulse Ox 98.2 F 72 12 95/62 100 10/04/20 05:00 10/04/20 05:00 10/04/20 05:00 10/04/20 05:00 10/04/20 05:00 Oxygen Flow Rate (L/min) 2 Oxygen Delivery Method Nasal Cannula Weight: 168 lb 6.931 oz Body Mass Index (BMI) 24.8 Intake and Output for Last 24 Hours 10/02/20 10/03/20 10/04/20 23:59 23:59 23:59 Intake Total 5467.50 / 5467.50 232.5 / 232.5 Output Total 875 / 875 525 / 525 Balance 4592.50 / 4592.50 -292.5 / -292.5 Labs (Last 48 Hours) 10/03/20 10/03/20 10/03/20 03:10 03:10 03:10 WBC 15.8 H RBC 4.79 Hgb 13.3 Hct 40.6 MCV 84.8 MCH 27.8 MCHC 32.8 RDW Std Deviation 38.7 RDW Coeff of Cheri 12.6 Plt Count 364 MPV 9.9 Immature Gran % (Auto) 0.300 Neut % (Auto) 86.3 H Lymph % (Auto) 6.6 L [place] % (Auto) 6.4 Eos % (Auto) 0.1 Baso % (Auto) 0.3 Absolute Neuts (auto) 13.7 H Absolute Lymphs (auto) 1.04 Nucleated RBC % 0 ESR 21 H Sodium 129 L Potassium 3.8 Chloride 93 L Carbon Dioxide 28.0 Anion Gap 8 BUN 9 Creatinine 1.10 Estim Creat Clear Calc 72.82 Est GFR (MDRD) Af Amer 87 Est GFR (MDRD) Non-Af 72 BUN/Creatinine Ratio 8.2 L Glucose 441 H Hemoglobin A1c Lactic Acid 3.9 H* Calcium 9.0 C-React Prot Ext Range 73.70 H S.aureus Protein A PCR MRSA (PCR) POC Glucose 10/03/20 10/03/20 10/03/20 03:10 05:55 06:08 WBC RBC Hgb Hct MCV MCH MCHC RDW Std Deviation RDW Coeff of Cheri Plt Count MPV Immature Gran % (Auto) Neut % (Auto) Lymph % (Auto) [place] % (Auto) Eos % (Auto) Baso % (Auto) Absolute Neuts (auto) Absolute Lymphs (auto) Nucleated RBC % ESR Sodium Potassium Chloride Carbon Dioxide Anion Gap BUN Creatinine Estim Creat Clear Calc Est GFR (MDRD) Af Amer Est GFR (MDRD) Non-Af BUN/Creatinine Ratio Glucose Hemoglobin A1c 12.8 H Lactic Acid Calcium C-React Prot Ext Range S.aureus Protein A PCR MRSA (PCR) Negative POC Glucose 327 H 10/03/20 10/03/20 10/03/20 07:30 09:50 12:25 WBC RBC Hgb Hct MCV MCH MCHC RDW Std Deviation RDW Coeff of Cheri Plt Count MPV Immature Gran % (Auto) Neut % (Auto) Lymph % (Auto) [place] % (Auto) Eos % (Auto) Baso % (Auto) Absolute Neuts (auto) Absolute Lymphs (auto) Nucleated RBC % ESR Sodium Potassium Chloride Carbon Dioxide Anion Gap BUN Creatinine Estim Creat Clear Calc Est GFR (MDRD) Af Amer Est GFR (MDRD) Non-Af BUN/Creatinine Ratio Glucose Hemoglobin A1c Lactic Acid 1.7 Calcium C-React Prot Ext Range S.aureus Protein A PCR POSITIVE H MRSA (PCR) Negative POC Glucose 263 H 10/03/20 10/03/20 10/04/20 17:40 22:29 04:50 WBC 10.5 RBC 4.09 L Hgb 11.5 L Hct 35.3 L MCV 86.3 MCH 28.1 MCHC 32.6 RDW Std Deviation 39.8 RDW Coeff of Cheri 12.6 Plt Count 261 MPV 9.2 Immature Gran % (Auto) 0.400 Neut % (Auto) 73.8 H Lymph % (Auto) 16.0 L [place] % (Auto) 7.5 Eos % (Auto) 1.9 Baso % (Auto) 0.4 Absolute Neuts (auto) 7.8 H Absolute Lymphs (auto) 1.68 Nucleated RBC % 0 ESR Sodium Potassium Chloride Carbon Dioxide Anion Gap BUN Creatinine Estim Creat Clear Calc Est GFR (MDRD) Af Amer Est GFR (MDRD) Non-Af BUN/Creatinine Ratio Glucose Hemoglobin A1c Lactic Acid Calcium C-React Prot Ext Range S.aureus Protein A PCR MRSA (PCR) POC Glucose 232 H 268 H 10/04/20 04:50 WBC RBC Hgb Hct MCV MCH MCHC RDW Std Deviation RDW Coeff of Cheri Plt Count MPV Immature Gran % (Auto) Neut % (Auto) Lymph % (Auto) [place] % (Auto) Eos % (Auto) Baso % (Auto) Absolute Neuts (auto) Absolute Lymphs (auto) Nucleated RBC % ESR Sodium 137 Potassium 3.4 L Chloride 103 Carbon Dioxide 33.0 H Anion Gap 1 L BUN 13 Creatinine 0.68 L Estim Creat Clear Calc 114.08 Est GFR (MDRD) Af Amer 154 Est GFR (MDRD) Non-Af 127 BUN/Creatinine Ratio 19.3 Glucose 198 H Hemoglobin A1c Lactic Acid Calcium 8.4 L C-React Prot Ext Range S.aureus Protein A PCR MRSA (PCR) POC Glucose Microbiology 10/03/20 17:30 Mucosa - Nasopharyngeal SARS-CoV-2 Antigen (Rapid) - Final 10/03/20 03:08 Blood Culture (Wb) - Anticubital Left Bacteria Detection (PCR) - Preliminary Streptococcus agalactiae (B) 10/03/20 03:08 Blood Culture (Wb) - Anticubital Left Blood Culture - Preliminary 10/03/20 03:10 Blood Culture (Wb) - Anticubital Right Blood Culture - Preliminary Clinical Impression(s) from Imaging Studies Foot X-Ray 10/03/20 02:56 IMPRESSION: Large soft tissue ulceration of the heel without definite evidence for osteomyelitis. Electronically Signed: Anne Kwok MD at 4:04 EST , Service support , Lower Extremity MRI 10/03/20 05:56 IMPRESSION: Osteomyelitis of the calcaneus with soft tissue injury. Achilles tendon tear. Electronically Signed: Tarik Smith MD at 15:10 EST , Service support , Medical Necessity - Tobacco Use Smoking Status: Former smoker Assessment/Plan All Active Problems (Last Updated 10/03/20 @ 09:[address] Deann Calloway, DP) Severe sepsis (Acute) Wound of foot (Acute) Hyperglycemia (Acute) Noncompliance with medication regimen (Acute) Infection of left foot (Acute) 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 (Acute) Left foot pain (Acute) RECOMMENDATIONS: 1. Continue supplemental IV fluid hydration, while the patient remains n.p.o. 2. Continue antimicrobials. 3. Continue sliding scale insulin coverage every 6 hours, while the patient is n.p.o. 4. Encourage incentive spirometer use while in bed. 5. Surgical management per podiatry recommendations. IMPRESSIONS: 1. Severe sepsis secondary to left lower extremity diabetic foot ulcer/osteomyelitis The patient was admitted to the ICU with severe sepsis secondary to a left heel ulcer, in the setting of diabetes mellitus. The patient has received adequate fluid resuscitation and remains hemodynamically stable. Recommend continuing broad-spectrum antimicrobials, pending infectious work-up. MRI foot did confirm the presence of osteomyelitis. There are tentative plans for surgical debridement this morning by podiatry. 2. History of diabetes mellitus/inadequate material resources (homelessness)/documented history of mild COPD/BENNIE/history of VTE Complicates care, management, recovery and prognosis. Continue sliding scale insulin coverage every 6 hours for now, given the patient's n.p.o. status. This note was generated with [employer] dictation software. It may contain incorrect words, spelling, and punctuation that were not noted in checking the note before signing. Inpatient E&M: 26452 Subs Hosp L2
[2020-10-04 06:06] LABS: Bedside Glucose 354 mg/dL (70-110)
[2020-10-04] MEDS: Insulin Lispro 100 UNIT/ML INSULN.PEN SC ×4 (06:30→23:06)
[2020-10-04] MEDS: Potassium Chloride 10mEq/100mL 10 MEQ/100 ML IV.SOLN. 100 MEQ IV BOLUS ×4 (07:43→11:48)
--- NOTE | 2020-10-04 07:48 | RAD_ITS ---
STUDY: X-RAY - LEFT CALCANEUS REASON FOR EXAM: Male, 60 years old. LEFT HEEL DEBRIDEMENT. 9 SEC. FL. ONLY ONE IMAGE SAVED BY DR. PECK TECHNIQUE: Lateral view of the left heel. 9 seconds of fluoroscopy time. Single limits. COMPARISON: None. FINDINGS: Surgical device projects over the left heel, overlying the calcaneus. Soft tissue swelling and defect of the medial soft tissues noted. RAD/Calcaneus min 2 Views IMPRESSION: Limited diagnostic information on fluoroscopic view of the left heel during surgery. Electronically Signed: Dvaid Tai MD ([place]) at 16:41 EST , Service support ,
[2020-10-04] MEDS: Lidocaine 1% (30 ml sdv) 30 ML Vial (08:15)
[2020-10-04] MEDS: Bupivacaine Mpf 0.5% 30 ML VIAL (08:15)
--- NOTE | 2020-10-04 09:00 | OP.PCM_ITS ---
Problem List (1) Infection of left foot Status: Acute (2) 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 Status: Acute (3) Left foot pain Status: Acute (4) Osteomyelitis Status: Suspected Qualifiers: Osteomyelitis location: foot Laterality: left Report of Operation Date of Procedure: 10/04/20 Pre-Operative Diagnosis: infected left heel ulcer with devitalized muscle and fascia tissue. osteomyelitis calcaneus work up in process, left Post-Operative Diagnosis: infected left heel ulcer with devitalized muscle and fascia tissue. osteomyelitis calcaneus work up in process, left Surgery/Procedure Performed:: excisional ulcer including necrotic muscle debridement with versajet, left heel. bone biopsy, left calcaneus Description of Surgical Findings:: hemostasis: anatomic dissection, no tourniquet utilized; controlled materials: 2-0 nylon specimens: sent complications: none The patient tolerated the procedure anesthesia well. He will be transferred to the PACU with vital signs stable vascular status intact to the left lower extremity. Intraoperative fluoroscopy was utilized to confirm appropriate placement of the bone biopsy sites and that there were no acute injuries noted. There is no purulence or necrosis noted at the end of this procedure. Postoperative orders will be entered. He will be transferred to [place] [id number]. milk receiver: yes - surgeon: Deann Calloway DPM. Paediatric Thoracic Physician: Carroll Mccormack PGY2 Type of Anesthesia:: Local MAC - Preoperative: 20 cc of one-to-one mixture of 1% lidocaine plain and 0.5% Marcaine plain administered in typical left ankle block fashion Specimen's removed: 1. Left heel ulcer post debridement irrigation culture sent to microbiology (aerobic, anaerobic, acid-fast, fungal). 2. Left calcaneus bone culture sent to microbiology (aerobic, anaerobic, acid-fast, fungal). 3. Left calcaneus bone sent to pathology Estimated Blood Loss (mL): <150mL Description of Procedure: Indications: This 60-year-old male with uncontrolled diabetes (A1C 12.8%), history of drug use, pulmonary embolism history, medication noncompliance, and current homelessness status reports he sustained a wound to the bottom of his left heel approximately 1 week ago. He denies known injury or foreign body exposure. He had progressive severe pain to the left heel and became ill resulting in admission to the hospital with severe sepsis. Clinically, he has a black fibronecrotic plug to the plantar left heel and a white blood cell count of approximately 15.8, lactic acid over 3, and elevated ESR and C-reactive protein. X-ray did not demonstrate any acute injuries or foreign body. There was localized soft tissue emphysema that corresponded with the infectious fibronecrotic plug. This was debrided at time of admission in an aggressive manner in which his white blood cell count did decrease and he remained stable from a hemodynamic standpoint. MRI revealed increased bone marrow edema on STIR images to the plantar calcaneus which is concerning for osteomyelitis. There were no additional abscesses or infectious tenosynovitis in adjacent structures suspected. It is noted that he does have a ruptured Achilles tendon with a large gap. The preoperative indications, planned procedure, possible benefits, risk, complications, and anticipated healing time and management were discussed in detail with the patient. He understands and elects to proceed with surgery at this time. No guarantees were made. He understands complications and risks include but are not limited to the following: pain, swelling, scarring, delayed or nonhealing, continued infection, allergic reaction, blood clot, need for further surgery, loss of limb, function, life. He understands he is also at risk for amputation. He understands the goal today with this urgent nonelective surgery is to alleviate his infection for limb salvage and gather additional i nformation about his proposed osteomyelitis diagnosis. He understands his ruptured Achilles tendon will not be surgically addressed today. He also understands he is undergoing surgery during the COVID-19 pandemic and there is an inherent risk with being in a healthcare facility. The benefits outweigh the risks at this time and he understands the hospital and involved personnel are taking all of the recommended precautions to reduce his chance of exposure. He was cleared for surgery by hospitalist and evaluation is appreciated. I answered all his questions. The surgical consent and limb were signed. Procedure in detail: The patient was transported to the operating room via cart and placed on the operating room table in the supine position. Final verification of the patient, surgery, and limb designation was performed via the timeout procedure. He is already receiving IV antibiotics on the floor including vancomycin and Zosyn. MAC anesthesia was initiated by the anesthesia team. I applied a well-padded mid leg tourniquet was placed however this was not utilized. The podiatry team administered the preoperative local anesthetic as noted. The left lower extremity was prepped and draped in the usual aseptic manner and the case proceeded as the following: Attention was first directed to the plantar left heel in which a versa jet on setting 8 was used to debride any nonviable subcutaneous, muscle, and fascia tissue to remove fibrous tissue, devitalized tissue, biofilm, slough, necrotic tissue. An additional distal medial incision was made to allow debridement of distal plantar wound that undermined with devitalized infected tissue. The predebridement measurement was 6.1 x 6 x 1.5 cm. The post debridement measurement was 7 cm x 6.5 x 2.0 cm. The plantar wound did not involve direct contact with devitalized bone. This debrided ulcer defect was irrigated copiously with normal saline and there was no residual purulence, necrosis, odor or devitalized tissue. There was no additional soft tissue plane tracking, crepitus, or bogginess elsewhere. A post irrigation soft tissue culture was sent to microbiology. Next, clean instruments, gloves, and adjacent drapes were utilized. Attention was directed to the medial plantar heel in which a 1 cm linear incision was made through the skin and blunt dissection was carried down directly to the medial plantar calcaneal wall. A bone biopsy was obtained via wyatt needle biopsy trocar at this site taking care to avoid going through the initial wound and infection site. The bone was very hard and white in appearance. Intraoperative fluoroscopy was used to confirm proper placement of the bone biopsy and no acute injuries were noted. A calcaneus bone biopsy was obtained and this was sent to both microbiology and pathology. Pressure was applied to maintain hemostasis. The biopsy site was sutured with 2-0 nylon utilizing simple suture technique. There was no pulsatile bleeding and brisk capillary refill time was noted to all digits of the left foot. Hemostasis was controlled with direct pressure. A postoperative dressing consisting of Betadine soaked gauze packed, dry gauze, abdominal pads, Kerlix and Coban was applied. Postoperative: The patient tolerated the procedure and anesthesia well. He was transferred to the PACU with vital signs stable and vascular status intact to left lower e xtremity. He will further be transferred to the medical surgical floor and no longer meets criteria to stay in the intensive care unit. His severe sepsis has resolved. He was advised to keep his dressing clean, dry, and intact. He was advised to ice and elevate for pain and inflammation management. A strict nonweightbearing status is also recommended. He will continue on IV vancomycin and Zosyn. This may be adjusted as his wound and blood culture results come back. His positive blood cultures are also noted. I recommend an infectious disease consultation as we get more information from the cultures. This is a limb salvage case. This patient will likely benefit from correction facility placement. Medical management and DVT prophylaxis per primary team is greatly appreciated. Anticoagulation medication use is recommended tomorrow. This is a limb salvage surgery and he will need to participate in a comprehensive wound healing plan including offloading, likely a wound VAC, and potential future surgical procedure versus specialized ankle-foot orthotic to address his ruptured Achilles tendon. The rupture of this tendon likely caused the calcaneus gait type pattern which is part of the etiology of his wound onset. Improved diabetic control is also needed for healing potential. I will continue to follow him closely while in house. Postoperative orders were entered electronically. Deann Calloway DPM, [facility] Grafts/Implants Used: none - Complications none - Admit VTE Documentation VTE Present on Admission: No VTE Mechan Device Prophylaxis: SCD's VTE Pharm Prophylaxis ordered?: Yes
[2020-10-04 09:46] LABS: Bedside Glucose 167 mg/dL (70-110)
--- NOTE | 2020-10-04 10:46 | PN_ITS ---
Patient Problems: Active and Suspected Problems (Last Updated 10/03/20 @ 09:[address] Deann Calloway, [facility]) Severe sepsis (Acute) Wound of foot (Acute) Hyperglycemia (Acute) Noncompliance with medication regimen (Acute) Infection of left foot (Acute) 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 (Acute) Left foot pain (Acute) Subjective: Patient was seen and examined today, he underwent surgery today to clean out the wound on his left foot. Patient has no complaints of any shortness of breath, chest pain, fever, or chills today. - Physical Exam Vitals/I&O's: Vital Signs Temp Pulse Resp BP Pulse Ox 97.8 F 70 18 113/67 98 10/04/20 10:10 10/04/20 10:10 10/04/20 10:10 10/04/20 10:10 10/04/20 10:10 Oxygen Flow Rate (L/min) 2 Oxygen Delivery Method Room Air Weight: 76.9 kg Body Mass Index (BMI) 25.0 Finger Stick Blood Glucose 167 Intake and Output for Last 24 Hours 10/02/20 10/03/20 10/04/20 23:59 23:59 23:59 Intake Total 5467.50 / 5467.50 1009.92 / 1009.92 Output Total 875 / 875 525 / 525 Balance 4592.50 / 4592.50 484.92 / 484.92 General: Alert, Oriented x3, Cooperative, No apparent distress, Well developed, Well nourished HEENT: Atraumatic, PERRLA, EOMI, Normocephalic Oral: Moist Mucosa Neck: Supple, No JVD, Trachea Midline, Thyroid Normal Size and Texture Lungs: Clear to auscultation, Normal air movement, No rhonchi, No wheeze, No rales Cardiovascular: Regular rate, Regular Rhythm, Normal S1, Normal S2, No murmurs, No Ectopic Activity, PMI Normal, No rub noted, No Gallop Abdomen: Bowel Sounds Present, Soft, Non Tender, Non-Distended, No hernias noted Extremities: No clubbing, No cyanosis, Capillary Refill Less than 3 Seconds, - - Patient's left lower leg is wrapped with surgical dressing, this was not removed for examination of his wound Skin: No rashes Neurological: Cranial nerves II-XII grossly intact, Neuro grossly intact, Sensory exam intact to light touch and pain, Coordination normal Psych/Mental Status: Normal Affect, Appropriate, Alert and oriented to time, place, person, mood and affect Microbiology Past 72 Hours 10/03/20 03:10 Blood Culture (Wb) - Anticubital Right Blood Culture - Preliminary Streptococcus agalactiae (B) GNR lactose medical charge entry specialist 10/03/20 03:08 Blood Culture (Wb) - Anticubital Left Bacteria Detection (PCR) - Final Streptococcus agalactiae (B) 10/03/20 03:08 Blood Culture (Wb) - Anticubital Left Blood Culture - Preliminary Streptococcus agalactiae (B) 10/03/20 17:30 Mucosa - Nasopharyngeal SARS-CoV-2 Antigen (Rapid) - Final Laboratory Results 10/03/20 09:50: S.aureus Protein A PCR POSITIVE H, MRSA (PCR) Negative 10/03/20 12:25: POC Glucose 263 H 10/03/20 17:40: POC Glucose 232 H 10/03/20 22:29: POC Glucose 268 H 10/04/20 04:50: WBC 10.5, RBC 4.09 L, Hgb 11.5 L, Hct 35.3 L, MCV 86.3, MCH 28.1, MCHC 32.6, RDW Std Deviation 39.8, RDW Coeff of Cheri 12.6, Plt Count 261, MPV 9.2, Immature Gran % (Auto) 0.400, Neut % (Auto) 73.8 H, Lymph % (Auto) 16.0 L, Haakon % (Auto) 7.5, Eos % (Auto) 1.9, Baso % (Auto) 0.4, Absolute Neuts (auto) 7.8 H, Absolute Lymphs (auto) 1.68, Nucleated RBC % 0 10/04/20 04:50: Sodium 137, Potassium 3.4 L, Chloride 103, Carbon Dioxide 33.0 H , Anion Gap 1 L, BUN 13, Creatinine 0.68 L, Estim Creat Clear Calc 114.08, Est GFR (MDRD) Af Amer 154, Est GFR (MDRD) Non-Af 127, BUN/Creatinine Ratio 19.3, Glucose 198 H, Calcium 8.4 L 10/04/20 06:01: POC Glucose 354 H 10/04/20 09:24: POC Glucose 167 H Current Medications Acetaminophen (Acetaminophen 325 Mg Tablet) 650 mg PO Q6H PRN PRN PRN Reason: Pain Score 1-10/Temp > 100.7 F Last Admin: 10/03/20 22:26 Dose: 650 mg Documented by: Dextrose (Dextrose 50%-Water 25 Gm/50 Ml Disp.Syrin) 0 gm IV X1 PRN; Protocol PRN Reason: Hypoglycemia Enoxaparin Sodium (Enoxaparin 40 Mg/0.4 Ml Syringe) 40 mg SC X1 ONE Stop: 10/04/20 10:16 Enoxaparin Sodium (Enoxaparin 40 Mg/0.4 Ml Syringe) 40 mg SC DAILY@0600 [facility] Glucagon (Glucagon 1 Mg/Ml Syringe) 1 mg IM .X1 PRN PRN Reason: Hypoglycemia Sodium Chloride () 250 mls @ 15 mls/hr IV .[id number] PRN PRN Reason: Saline Flush Last Infusion: 10/04/20 10:32 Dose: 0 mls/hr Documented by: Sodium Chloride () 250 mls @ 15 mls/hr IV .[id number] PRN PRN Reason: Additional IVPB Infusion Sodium Chloride () 1,000 mls @ 75 mls/hr IV .[id number] [facility] Last Admin: 10/04/20 10:16 Dose: 75 mls/hr Documented by: Piperacillin Sod/Tazobactam (Sod 3.375 gm/ Sodium Chloride) 50 mls @ 12.5 mls/hr IV Q8 [facility] Last Infusion: 10/04/20 10:32 Dose: Infused Documented by: Vancomycin IV Pharmacy to Dose (1 ea/ Sodium Chloride) 500 mls @ 250 mls/hr IV X1 PRN; Protocol PRN Reason: Rx to Dose Vancomycin HCl (Vancomycin) 1,000 mg in 200 mls @ 200 mls/hr IV Q12H [facility] Last Infusion: 10/04/20 05:52 Dose: Infused Documented by: Potassium Chloride () 10 meq in 100 mls @ 100 mls/hr IV BOLUS Q1H [facility] Stop: 10/04/20 10:59 Last Admin: 10/04/20 10:28 Dose: 100 mls/hr Documented by: Insulin Glargine (Insulin Glargine 100 Units/Ml Pen) 20 units SC BREAKFAST [facility] Insulin Glargine (Insulin Glargine 100 Units/Ml Pen) 20 units SC X1 ONE Stop: 10/04/20 10:16 Insulin Human Lispro (Insulin Lispro 100 Unit/Ml Insuln.Pen) 0 unit SC Q6 [facility]; Protocol Last Admin: 10/04/20 06:30 Dose: 8 units Documented by: Melatonin (Melatonin 3 Mg Tablet) 3 mg PO QHS PRN PRN PRN Reason: INSOMNIA Morphine Sulfate (Morphine 2 Mg/Ml Syringe) 2 mg IV Q4H PRN PRN PRN Reason: pain 6-10 Last Admin: 10/04/20 05:13 Dose: 2 mg Documented by: Nutritional Formula (Nutritional Supplement (Edy) Packet) 1 packet PO BIDCM [facility] Last Admin: 10/03/20 17:41 Dose: 1 packet Documented by: Nutritional Formula (Lactose Free) (Glucerna Shake 120 Ml Liquid) 120 ml PO 4X/DAY [facility] Last Admin: 10/03/20 22:24 Dose: 120 ml Documented by: Ondansetron HCl (Ondansetron 4 Mg/2 Ml Vial) 4 mg IV Q8H PRN PRN PRN Reason: NAUSEA/VOMITING Senna/Docusate Sodium (Senna/Docusate Sodium 1 Tablet) 2 tablet PO BID PRN PRN PRN Reason: Constipation Sodium Chloride (0.9% Saline Lock 10 Ml Syringe) 10 - 40 ml IV UD PRN PRN Reason: SALINE FLUSH Last Admin: 10/04/20 05:13 Dose: 10 ml Documented by: Medical Necessity - Tobacco Use Smoking Status: Former smoker Assessment/Plan All Active Problems (Last Updated 10/03/20 @ 09:[address] Deann Calloway, [facility]) Severe sepsis (Acute) Wound of foot (Acute) Hyperglycemia (Acute) Noncompliance with medication regimen (Acute) Infection of left foot (Acute) 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 (Acute) Left foot pain (Acute) #1 severe sepsis secondary to deep wound infection of the left foot-continue present antibiotic coverage, patient was moved to [place] [id number] for further care today. Patient's blood culture resulted positive for Streptococcus agalactiae and a gram-negative lactose medical charge entry specialist, I will keep the patient on his present antibiotic coverage for now until final cultures are resulted. #2 deep wound infection of the left plantar surface of the foot-podiatry is participating in his care #3 type 2 diabetes-blood sugars will be monitored, insulin will be adjusted as needed #4 noncompliance with medical regimen-patient has not been on any medications for type 2 diabetes for 3 years #5 hypokalemia-potassium this morning was 3.4, patient will receive potassium supplementation Inpatient E&M: [id number] Subs Hosp L2
[2020-10-04 11:41] LABS: Bedside Glucose 286 mg/dL (70-110)
[2020-10-04] MEDS: Enoxaparin 40 MG/0.4 ML Syringe SC (11:51)
[2020-10-04] MEDS: Glucerna Shake 120 ML LIQUID PO ×3 (11:54→20:36)
[2020-10-04 17:13] LABS: Vancomycin, Trough Level 11.4 ug/mL (5.0-15.0)
[2020-10-04 17:15] LABS: Bedside Glucose 293 mg/dL (70-110)
--- NOTE | 2020-10-04 18:38 | PCM.RX.CS ---
Consult Pharmacy has been consulted to manage selected antiobiotic: Vancomycin Type of Consult: Follow-up Suspected Infection: Sepsis Prior Doses of Antibiotics Received/Current Regimen: 1gm iv q12h Labs: Sodium 137 mmol/L (136-145) 10/04/20 04:50 Potassium 3.4 mmol/L (3.5-5.1) L 10/04/20 04:50 Chloride 103 mmol/L (98-107) 10/04/20 04:50 Carbon Dioxide 33.0 mmol/L (21.0-32.0) H 10/04/20 04:50 Anion Gap 1 (5-15) L 10/04/20 04:50 BUN 13 mg/dL (7-18) 10/04/20 04:50 Creatinine 0.68 mg/dL (0.70-1.30) L 10/04/20 04:50 Est GFR (MDRD) Af Amer 154 mL/min (>60) 10/04/20 04:50 Est GFR (MDRD) Non-Af 127 mL/min (>60) 10/04/20 04:50 BUN/Creatinine Ratio 19.3 RATIO (10-20) 10/04/20 04:50 Glucose 198 mg/dL (74-106) H 10/04/20 04:50 Vancomycin Trough 11.4 ug/mL (5.0-15.0) 10/04/20 16:40 Microbiology: Microbiology 10/03/20 09:50 Wound Drainage - Aerobic & Anaerobic Swabs Gram Stain - Final 10/03/20 09:50 Wound Drainage - Aerobic & Anaerobic Swabs Wound Culture - Preliminary Beta streptococcus Gram negative anselmo Staphylococcus species 10/03/20 03:10 Blood Culture (Wb) - Anticubital Right Blood Culture - Preliminary Streptococcus agalactiae (B) GNR lactose displayer merchandise 10/03/20 03:08 Blood Culture (Wb) - Anticubital Left Bacteria Detection (PCR) - Final Streptococcus agalactiae (B) 10/03/20 03:08 Blood Culture (Wb) - Anticubital Left Blood Culture - Preliminary Streptococcus agalactiae (B) 10/03/20 17:30 Mucosa - Nasopharyngeal SARS-CoV-2 Antigen (Rapid) - Final Weight used for dosin kg Estimated Creatinine Clearance: 114 ml/min Goal Trough: 15-20 mcg/mL Pharmacy Plan for Drug Dosing: Renal function improved. Cr from 1.1 to 0.68. Trough level today 11.4 (goal range 15-20 mcg/ml). Will increase dose to 1500mg iv q12h and get another trough before 4th dose of new regimen. Pharmacy Service will continue to monitor and adjust dosing as required. Follow-Up Labs: Trough Vancomycin - 12.8.20 @1630 before 1700 dose
[2020-10-04 23:10] LABS: Bedside Glucose 275 mg/dL (70-110)
[2020-10-05 01:05] VITALS: BP 105/61; PULSE 82; RESP 18; TEMP 37.1; O2SAT 97
[2020-10-05 05:15] VITALS: BP 124/66; PULSE 82; RESP 20; TEMP 36.9; O2SAT 96
[2020-10-05] MEDS: Insulin Lispro 100 UNIT/ML INSULN.PEN SC ×4 (06:47→21:36)
[2020-10-05] MEDS: Enoxaparin 40 MG/0.4 ML Syringe SC (06:48)
[2020-10-05 06:55] LABS: Bedside Glucose 202 mg/dL (70-110)
--- NOTE | 2020-10-05 07:39 | PCM.PROGNOTE ---
Patient Problems: Active and Suspected Problems (Last Updated 10/03/20 @ 09:[address] Deann Calloway, [facility]) Severe sepsis (Acute) Wound of foot (Acute) Hyperglycemia (Acute) Noncompliance with medication regimen (Acute) Infection of left foot (Acute) 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 (Acute) Left foot pain (Acute) Osteomyelitis (Suspected) Subjective: Patient seen and examined bedside. He has no new complaints. He was tired upon exam as he was sleeping. He denies N/F/V/C/CP/SOB/streaking/purulence - Physical Exam Vitals/I&O's: Vital Signs Temp Pulse Resp BP Pulse Ox 98.5 F 82 20 H 124/66 H 96 10/05/20 05:15 10/05/20 05:15 10/05/20 05:15 10/05/20 05:15 10/05/20 05:15 Oxygen Flow Rate (L/min) 2 Oxygen Delivery Method Room Air Weight: 77.156 kg Body Mass Index (BMI) 25.0 Finger Stick Blood Glucose 167 Intake and Output for Last 24 Hours 10/03/20 10/04/20 10/05/20 23:59 23:59 23:59 Intake Total 5467.50 / 5467.50 4352.42 / 4352.42 350 / 350 Output Total 875 / 875 1925 / 1925 1200 / 1200 Balance 4592.50 / 4592.50 2427.42 / 2427.42 -850 / -850 General: Alert, Oriented x3, Cooperative HEENT: Atraumatic Extremities: No cyanosis, Capillary Refill Less than 3 Seconds, No Calf Tenderness, Edema - mild left foot, Peripheral Pulses Normal - 2/4 DP and PT bilateral, 2/4 PT right, left nonpalpable 2/2 edema likely, Tenderness - left heel Skin: Ulcer/ Wound - left heel down to bone, cleaned out in surgery yesterday, measures 7x6.5x2cm, mild periwound erythema/edema, skin edges warm with normal CFT, pain to palpation, mild bloody drainage noted on bandage, no active bleeding noted, no purulence, no malodor Musculoskeletal: No Muscle Wasting, Tenderness - left heel Neurological: Sensory exam intact to light touch and pain Psych/Mental Status: Appropriate Microbiology Past 72 Hours 10/03/20 09:50 Wound Drainage - Aerobic & Anaerobic Swabs Gram Stain - Final 10/03/20 09:50 Wound Drainage - Aerobic & Anaerobic Swabs Wound Culture - Preliminary Beta streptococcus Gram negative anselmo Staphylococcus species 10/03/20 03:10 Blood Culture (Wb) - Anticubital Right Blood Culture - Preliminary Streptococcus agalactiae (B) GNR lactose development rep 10/03/20 03:08 Blood Culture (Wb) - Anticubital Left Bacteria Detection (PCR) - Final Streptococcus agalactiae (B) 10/03/20 03:08 Blood Culture (Wb) - Anticubital Left Blood Culture - Preliminary Streptococcus agalactiae (B) 10/03/20 17:30 Mucosa - Nasopharyngeal SARS-CoV-2 Antigen (Rapid) - Final Laboratory Results 10/04/20 09:24: POC Glucose 167 H 10/04/20 11:37: POC Glucose 286 H 10/04/20 16:40: Vancomycin Trough 11.4 10/04/20 17:05: POC Glucose 293 H 10/04/20 23:03: POC Glucose 275 H 10/05/20 06:43: POC Glucose 202 H Current Medications Acetaminophen (Acetaminophen 325 Mg Tablet) 650 mg PO Q6H PRN PRN PRN Reason: Pain Score 1-10/Temp > 100.7 F Last Admin: 10/03/20 22:26 Dose: 650 mg Documented by: Dextrose (Dextrose 50%-Water 25 Gm/50 Ml Disp.Syrin) 0 gm IV X1 PRN; Protocol PRN Reason: Hypoglycemia Enoxaparin Sodium (Enoxaparin 40 Mg/0.4 Ml Syringe) 40 mg SC DAILY@0600 [facility] Last Admin: 10/05/20 06:48 Dose: 40 mg Documented by: Glucagon (Glucagon 1 Mg/Ml Syringe) 1 mg IM .X1 PRN PRN Reason: Hypoglycemia Sodium Chloride () 250 mls @ 15 mls/hr IV .[id number] PRN PRN Reason: Saline Flush Last Infusion: 10/04/20 10:32 Dose: 0 mls/hr Documented by: Sodium Chloride () 250 mls @ 15 mls/hr IV .[id number] PRN PRN Reason: Additional IVPB Infusion Sodium Chloride () 1,000 mls @ 75 mls/hr IV .[id number] [facility] Last Admin: 10/04/20 23:30 Dose: 75 mls/hr Documented by: Piperacillin Sod/Tazobactam (Sod 3.375 gm/ Sodium Chloride) 50 mls @ 12.5 mls/hr IV Q8 [facility] Last Admin: 10/05/20 05:53 Dose: 12.5 mls/hr Documented by: Vancomycin IV Pharmacy to Dose (1 ea/ Sodium Chloride) 500 mls @ 250 mls/hr IV X1 PRN; Protocol PRN Reason: Rx to Dose Vancomycin HCl 1,500 mg/ (Sodium Chloride) 530 mls @ 250 mls/hr IV Q12H [facility] Last Admin: 10/05/20 05:34 Dose: 250 mls/hr Documented by: Insulin Glargine (Insulin Glargine 100 Units/Ml Pen) 20 units SC BREAKFAST [facility] Insulin Human Lispro (Insulin Lispro 100 Unit/Ml Insuln.Pen) 0 unit SC Q6 [facility]; Protocol Last Admin: 10/05/20 06:47 Dose: 4 units Documented by: Melatonin (Melatonin 3 Mg Tablet) 3 mg PO QHS PRN PRN PRN Reason: INSOMNIA Morphine Sulfate (Morphine 2 Mg/Ml Syringe) 2 mg IV Q4H PRN PRN PRN Reason: pain 6-10/10 Last Admin: 10/04/20 23:18 Dose: 2 mg Documented by: Nutritional Formula (Nutritional Supplement (Edy) Packet) 1 packet PO BIDCM [facility] Last Admin: 10/04/20 17:58 Dose: 1 packet Documented by: Nutritional Formula (Lactose Free) (Glucerna Shake 120 Ml Liquid) 120 ml PO 4X/DAY [facility] Last Admin: 10/04/20 20:36 Dose: 120 ml Documented by: Ondansetron HCl (Ondansetron 4 Mg/2 Ml Vial) 4 mg IV Q8H PRN PRN PRN Reason: NAUSEA/VOMITING Senna/Docusate Sodium (Senna/Docusate Sodium 1 Tablet) 2 tablet PO BID PRN PRN PRN Reason: Constipation Sodium Chloride (0.9% Saline Lock 10 Ml Syringe) 10 - 40 ml IV UD PRN PRN Reason: SALINE FLUSH Last Admin: 10/04/20 05:13 Dose: 10 ml Documented by: Medical Necessity - Tobacco Use Smoking Status: Former smoker Assessment/Plan All Active Problems (Last Updated 10/03/20 @ 09:[address] Deann Calloway, [facility]) Achilles rupture, left (Acute) Severe sepsis (Acute) Wound of foot (Acute) Hyperglycemia (Acute) Noncompliance with medication regimen (Acute) Infection of left foot (Acute) 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 (Acute) Left foot pain (Acute) Sepsis Left foot infection s/p I&D with calcaneal biopsy 10/04/20 Left plantar heel eschar with wound and necrotic fascial tissue Osteomyelitis work-up in process Uncontrolled diabetes with current hyperglycemia History of tobacco and drug abuse Other comorbidities noted Patient seen and examined. 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 Patient prefers pillows for this. Hemoglobin A1c 12.8. Discussed with the patient that this can impact the wounds ability to heel. Would appreciate hospitalist help in managing blood sugars. Please do not hesitate to call if you have any questions.
[2020-10-05 08:00] VITALS: BP 102/60; PULSE 74; RESP 16; TEMP 36.9; O2SAT 98
[2020-10-05 08:02] LABS: Absolute Lymphocyte Count 1.83 X10^3/uL (0.83-4.51); Absolute Neutrophil Count 7.5 X10^3/uL (2.0-7.7); Basophil# 0.06 X10^3/uL; Basophil% 0.6 % (0-1); Eosinophil# 0.24 X10^3/uL; Eosinophils% 2.3 % (0-5); Hematocrit 34.4 % (40-54); Hemoglobin 11.3 g/dL (13.0-16.5); Lymphocyte # 1.83 X10^3/ul (4.0); Lymphocyte % 17.4 % (19-41); Mean Corp Hgb Conc 32.8 g/dL (32-36); Mean Corpuscular Hgb 28.1 pg (27.0-32.0); Mean Corpuscular Volume 85.6 fL (80-94); Mean Platelet Vol. 9.7 fl (6.2-12.0); Monocyte# 0.81 X10^3/uL; Monocyte% 7.7 % (0-10); NRBC Flagged by Analyzer 0 % (0-5); Neutrophil # 7.53 X10^3/uL (2.7-7.7); Neutrophil % 71.5 % (47-70); Platelet Count 279 K/mm3 (150-450); RBC Distribution Width CV 12.6 % (11.6-14.6); RBC Distribution Width SD 39.4 fl (35.1-43.9); Red Blood Count 4.02 M/mm3 (4.6-6.2); White Blood Count 10.5 K/mm3 (4.4-11.0)
[2020-10-05] MEDS: Morphine 2 MG/ML Syringe IV ×2 (08:02→10:50)
[2020-10-05 08:10] VITALS: O2SAT 97
[2020-10-05 08:17] LABS: ALB/GLOB Ratio 0.5 RATIO (0.9-2.4); AST(SGOT) 13 U/L (15-37); Alanine Aminotransfer ALT/SGPT 14 U/L (16-61); Alkaline Phosphatase 94 U/L (45-117); Anion Gap 4 (5-15); BUN 14 mg/dL (7-18); BUN/Creat Ratio 17.8 RATIO (10-20); Calcium,Total 8.2 mg/dL (8.5-10.1); Chloride 105 mmol/L (98-107); Creatinine, Serum 0.79 mg/dL (0.70-1.30); EST Glomerular Filtration Rate 106 mL/min (>60); Est Glom Filt Rate - Afr Amer 128 mL/min (>60); Estimated Creatinine Clearance 98.19 ml/min; Globulin 3.9 g/dL (2.2-4.2); Glucose 197 mg/dL (74-106); Potassium 3.6 mmol/L (3.5-5.1); Protein, Total 5.9 g/dL (6.4-8.2); Sodium Level 139 mmol/L (136-145)
[2020-10-05] MEDS: Glucerna Shake 120 ML LIQUID PO ×4 (09:39→21:38)
[2020-10-05] MEDS: Senna/Docusate Sodium 1 Tablet 2 TABLET PO (10:50)
--- NOTE | 2020-10-05 11:20 | NURSING ---
wound photo: left heel
--- NOTE | 2020-10-05 12:01 | PN_ITS ---
Subjective: Patient transferred from the intensive care unit yesterday. Patient reports he is subjectively improved compared to yesterday. No supplemental oxygen has been required. Patient has remained hemodynamically stable. Patient did have an MRI showing osteomyelitis and has a wound VAC in place. General: Alert, Oriented x3, Cooperative, No apparent distress, - - No conversational dyspnea. HEENT: Atraumatic, PERRLA, EOMI, Normocephalic, - - No scleral icterus or injection noted Oral: Moist Mucosa, No Gingival or Mucosal Lesions/ Ulcerations Neck: Supple, No JVD, No Nodes, Trachea Midline Lungs: Clear to auscultation, Normal air movement, No rhonchi, No wheeze, No rales, - - Symmetric expansion. No dullness to percussion. Cardiovascular: Regular rate, Regular Rhythm, Normal S1, Normal S2, No murmurs, No rub noted, No Gallop Abdomen: Bowel Sounds Present, Soft, Non Tender, Non-Distended Extremities: No clubbing, No cyanosis, No edema Skin: - - Foot is wrapped with wound VAC in place. This was not evaluated Musculoskeletal: No Tenderness to Palpation of Joints or Extremities Lymphatic: No Cervical, Supraclavicular, or Inguinal Adenopathy Neurological: Cranial nerves II-XII grossly intact, Neuro grossly intact, Motor Exam 5/5 strength throughout Psych/Mental Status: Appropriate, Flat Affect Vital Signs Temp Pulse Resp BP Pulse Ox 36.9 C 74 16 102/60 97 10/05/20 08:00 10/05/20 08:00 10/05/20 08:00 10/05/20 08:00 10/05/20 08:10 Oxygen Flow Rate (L/min) 2 Oxygen Delivery Method Room Air Weight: 77.156 kg Body Mass Index (BMI) 25.0 Finger Stick Blood Glucose 167 Intake and Output for Last 24 Hours 10/03/20 10/04/20 10/05/20 23:59 23:59 23:59 Intake Total 5467.50 / 5467.50 4352.42 / 4352.42 930 / 930 Output Total 875 / 875 1925 / 1925 1200 / 1200 Balance 4592.50 / 4592.50 2427.42 / 2427.42 -270 / -270 Labs (Last 48 Hours) 10/03/20 10/03/20 10/03/20 09:50 12:25 17:40 WBC RBC Hgb Hct MCV MCH MCHC RDW Std Deviation RDW Coeff of Cheri Plt Count MPV Immature Gran % (Auto) Neut % (Auto) Lymph % (Auto) [place] % (Auto) Eos % (Auto) Baso % (Auto) Absolute Neuts (auto) Absolute Lymphs (auto) Nucleated RBC % Sodium Potassium Chloride Carbon Dioxide Anion Gap BUN Creatinine Estim Creat Clear Calc Est GFR (MDRD) Af Amer Est GFR (MDRD) Non-Af BUN/Creatinine Ratio Glucose Calcium Total Bilirubin AST ALT Alkaline Phosphatase Total Protein Albumin Globulin Albumin/Globulin Ratio Vancomycin Trough S.aureus Protein A PCR POSITIVE H MRSA (PCR) Negative POC Glucose 263 H 232 H 10/03/20 10/04/20 10/04/20 22:29 04:50 04:50 WBC 10.5 RBC 4.09 L Hgb 11.5 L Hct 35.3 L MCV 86.3 MCH 28.1 MCHC 32.6 RDW Std Deviation 39.8 RDW Coeff of Cheri 12.6 Plt Count 261 MPV 9.2 Immature Gran % (Auto) 0.400 Neut % (Auto) 73.8 H Lymph % (Auto) 16.0 L [place] % (Auto) 7.5 Eos % (Auto) 1.9 Baso % (Auto) 0.4 Absolute Neuts (auto) 7.8 H Absolute Lymphs (auto) 1.68 Nucleated RBC % 0 Sodium 137 Potassium 3.4 L Chloride 103 Carbon Dioxide 33.0 H Anion Gap 1 L BUN 13 Creatinine 0.68 L Estim Creat Clear Calc 114.08 Est GFR (MDRD) Af Amer 154 Est GFR (MDRD) Non-Af 127 BUN/Creatinine Ratio 19.3 Glucose 198 H Calcium 8.4 L Total Bilirubin AST ALT Alkaline Phosphatase Total Protein Albumin Globulin Albumin/Globulin Ratio Vancomycin Trough S.aureus Protein A PCR MRSA (PCR) POC Glucose 268 H 10/04/20 10/04/20 10/04/20 06:01 09:24 11:37 WBC RBC Hgb Hct MCV MCH MCHC RDW Std Deviation RDW Coeff of Cheri Plt Count MPV Immature Gran % (Auto) Neut % (Auto) Lymph % (Auto) [place] % (Auto) Eos % (Auto) Baso % (Auto) Absolute Neuts (auto) Absolute Lymphs (auto) Nucleated RBC % Sodium Potassium Chloride Carbon Dioxide Anion Gap BUN Creatinine Estim Creat Clear Calc Est GFR (MDRD) Af Amer Est GFR (MDRD) Non-Af BUN/Creatinine Ratio Glucose Calcium Total Bilirubin AST ALT Alkaline Phosphatase Total Protein Albumin Globulin Albumin/Globulin Ratio Vancomycin Trough S.aureus Protein A PCR MRSA (PCR) POC Glucose 354 H 167 H 286 H 10/04/20 10/04/20 10/04/20 16:40 17:05 23:03 WBC RBC Hgb Hct MCV MCH MCHC RDW Std Deviation RDW Coeff of Cheri Plt Count MPV Immature Gran % (Auto) Neut % (Auto) Lymph % (Auto) [place] % (Auto) Eos % (Auto) Baso % (Auto) Absolute Neuts (auto) Absolute Lymphs (auto) Nucleated RBC % Sodium Potassium Chloride Carbon Dioxide Anion Gap BUN Creatinine Estim Creat Clear Calc Est GFR (MDRD) Af Amer Est GFR (MDRD) Non-Af BUN/Creatinine Ratio Glucose Calcium Total Bilirubin AST ALT Alkaline Phosphatase Total Protein Albumin Globulin Albumin/Globulin Ratio Vancomycin Trough 11.4 S.aureus Protein A PCR MRSA (PCR) POC Glucose 293 H 275 H 10/05/20 10/05/20 10/05/20 06:43 07:45 07:45 WBC 10.5 RBC 4.02 L Hgb 11.3 L Hct 34.4 L MCV 85.6 MCH 28.1 MCHC 32.8 RDW Std Deviation 39.4 RDW Coeff of Cheri 12.6 Plt Count 279 MPV 9.7 Immature Gran % (Auto) 0.500 Neut % (Auto) 71.5 H Lymph % (Auto) 17.4 L [place] % (Auto) 7.7 Eos % (Auto) 2.3 Baso % (Auto) 0.6 Absolute Neuts (auto) 7.5 Absolute Lymphs (auto) 1.83 Nucleated RBC % 0 Sodium 139 Potassium 3.6 Chloride 105 Carbon Dioxide 30.0 Anion Gap 4 L BUN 14 Creatinine 0.79 Estim Creat Clear Calc 98.19 Est GFR (MDRD) Af Amer 128 Est GFR (MDRD) Non-Af 106 BUN/Creatinine Ratio 17.8 Glucose 197 H Calcium 8.2 L Total Bilirubin 0.30 AST 13 L ALT 14 L Alkaline Phosphatase 94 Total Protein 5.9 L Albumin 2.0 L Globulin 3.9 Albumin/Globulin Ratio 0.5 L Vancomycin Trough S.aureus Protein A PCR MRSA (PCR) POC Glucose 202 H Microbiology 10/04/20 09:00 Bone - Left Foot Wound Culture - Preliminary Staphylococcus species Beta streptococcus 10/04/20 09:00 Tissue - Left Foot Wound Culture - Preliminary Streptococcus group B 10/03/20 09:50 Wound Drainage - Aerobic & Anaerobic Swabs Gram Stain - Final 10/03/20 09:50 Wound Drainage - Aerobic & Anaerobic Swabs Wound Culture - Preliminary Streptococcus agalactiae (B) Klebsiella pneumoniae sp pneum Staphylococcus aureus Gram positive anselmo 10/03/20 03:08 Blood Culture (Wb) - Anticubital Left Bacteria Detection (PCR) - Final Streptococcus agalactiae (B) 10/03/20 03:08 Blood Culture (Wb) - Anticubital Left Blood Culture - Final Streptococcus agalactiae (B) 10/03/20 03:10 Blood Culture (Wb) - Anticubital Right Blood Culture - Final Streptococcus agalactiae (B) Klebsiella pneumoniae sp pneum 10/03/20 17:30 Mucosa - Nasopharyngeal SARS-CoV-2 Antigen (Rapid) - Final Clinical Impression(s) from Imaging Studies Os Calcis X-ray 10/04/20 07:48 IMPRESSION: Limited diagnostic information on fluoroscopic view of the left heel during surgery. Electronically Signed: David Tai MD ([place]) at 16:41 EST , Service support , Medical Necessity - Tobacco Use Smoking Status: Former smoker Assessment/Plan All Active Problems (Last Updated 10/03/20 @ 09:[address] Deann Calloway, [facility]) Achilles rupture, left (Acute) Severe sepsis (Acute) Wound of foot (Acute) Hyperglycemia (Acute) Noncompliance with medication regimen (Acute) Infection of left foot (Acute) 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 (Acute) Left foot pain (Acute) RECOMMENDATIONS: 1. Continue supplemental IV fluid hydration, while the patient remains n.p.o. 2. Continue antimicrobials. 3. Continue sliding scale insulin coverage every 6 hours, while the patient is n.p.o. 4. Encourage incentive spirometer use while in bed. 5. Surgical management per podiatry recommendations. 6. Hemodynamically stable on room air. Will sign off from a critical care perspective IMPRESSIONS: 1. Severe sepsis secondary to left lower extremity diabetic foot ulcer/osteomyelitis The patient was admitted to the ICU with severe sepsis secondary to a left heel ulcer, in the setting of diabetes mellitus. The patient has received adequate fluid resuscitation and remains hemodynamically stable. Recommend continuing broad-spectrum antimicrobials, pending cultures. MRI foot did confirm the presence of osteomyelitis. Patient has undergone surgical debridement and tolerated well. Patient remains hemodynamically stable on room air. Will sign off from a critical care perspective. 2. History of diabetes mellitus/inadequate material resources (homelessness)/documented history of mild COPD/BENNIE/history of VTE Complicates care, management, recovery and prognosis. Continue sliding scale insulin coverage every 6 hours for now, given the patient's n.p.o. status. Inpatient E&M: [id number] [facility] Hosp L2
[2020-10-05 12:11] LABS: Bedside Glucose 281 mg/dL (70-110)
--- NOTE | 2020-10-05 13:17 | PN_ITS ---
Patient Problems: Active and Suspected Problems (Last Updated 10/03/20 @ 09:[address] Deann Calloway, DPShaila) Severe sepsis (Acute) Wound of foot (Acute) Hyperglycemia (Acute) Noncompliance with medication regimen (Acute) Infection of left foot (Acute) 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 (Acute) Left foot pain (Acute) Osteomyelitis (Suspected) Reason for Visit: OM Subjective: Did not sleep well overnight Vitals/I&O's: Vital Signs Temp Pulse Resp BP Pulse Ox 36.9 C 74 16 102/60 97 10/05/20 08:00 10/05/20 08:00 10/05/20 08:00 10/05/20 08:00 10/05/20 08:10 Oxygen Flow Rate (L/min) 2 Oxygen Delivery Method Room Air Weight: 77.156 kg Body Mass Index (BMI) 25.0 Finger Stick Blood Glucose 167 Intake and Output for Last 24 Hours 10/03/20 10/04/20 10/05/20 23:59 23:59 23:59 Intake Total 5467.50 / 5467.50 4352.42 / 4352.42 1330 / 1330 Output Total 875 / 875 1925 / 1925 2200 / 2200 Balance 4592.50 / 4592.50 2427.42 / 2427.42 -870 / -870 General: Alert, No apparent distress HEENT: Atraumatic, Normocephalic Oral: Moist Mucosa, No Gingival or Mucosal Lesions/ Ulcerations Neck: No Nodes, Thyroid Normal Size and Texture Lungs: Clear to auscultation, Normal air movement, No rhonchi, No wheeze, No rales Cardiovascular: Regular rate, Regular Rhythm, Normal S1, Normal S2, No murmurs Abdomen: Bowel Sounds Present, Soft, Non Tender, Non-Distended, No Hepato- splenomegaly Extremities: No edema, No Calf Tenderness Microbiology Past 72 Hours 10/04/20 09:00 Bone - Left Foot Wound Culture - Preliminary Staphylococcus species Beta streptococcus 10/04/20 09:00 Tissue - Left Foot Wound Culture - Preliminary Streptococcus group B 10/03/20 09:50 Wound Drainage - Aerobic & Anaerobic Swabs Gram Stain - Final 10/03/20 09:50 Wound Drainage - Aerobic & Anaerobic Swabs Wound Culture - Preliminary Streptococcus agalactiae (B) Klebsiella pneumoniae sp pneum Staphylococcus aureus Gram positive anselmo 10/03/20 03:08 Blood Culture (Wb) - Anticubital Left Bacteria Detection (PCR) - Final Streptococcus agalactiae (B) 10/03/20 03:08 Blood Culture (Wb) - Anticubital Left Blood Culture - Final Streptococcus agalactiae (B) 10/03/20 03:10 Blood Culture (Wb) - Anticubital Right Blood Culture - Final Streptococcus agalactiae (B) Klebsiella pneumoniae sp pneum 10/03/20 17:30 Mucosa - Nasopharyngeal SARS-CoV-2 Antigen (Rapid) - Final Laboratory Results 10/04/20 16:40: Vancomycin Trough 11.4 10/04/20 17:05: POC Glucose 293 H 10/04/20 23:03: POC Glucose 275 H 10/05/20 06:43: POC Glucose 202 H 10/05/20 07:45: WBC 10.5, RBC 4.02 L, Hgb 11.3 L, Hct 34.4 L, MCV 85.6, MCH 28.1, MCHC 32.8, RDW Std Deviation 39.4, RDW Coeff of Cheri 12.6, Plt Count 279, MPV 9.7, Immature Gran % (Auto) 0.500, Neut % (Auto) 71.5 H, Lymph % (Auto) 17.4 L, [place] % (Auto) 7.7, Eos % (Auto) 2.3, Baso % (Auto) 0.6, Absolute Neuts (auto) 7.5, Absolute Lymphs (auto) 1.83, Nucleated RBC % 0 10/05/20 07:45: Sodium 139, Potassium 3.6, Chloride 105, Carbon Dioxide 30.0, Anion Gap 4 L, BUN 14, Creatinine 0.79, Estim Creat Clear Calc 98.19, Est GFR (MDRD) Af Amer 128, Est GFR (MDRD) Non-Af 106, BUN/Creatinine Ratio 17.8, Glucose 197 H, Calcium 8.2 L, Total Bilirubin 0.30, AST 13 L, ALT 14 L, Alkaline Phosphatase 94, Total Protein 5.9 L, Albumin 2.0 L, Globulin 3.9, Albumin/Globulin Ratio 0.5 L 10/05/20 11:56: POC Glucose 281 H Current Medications Acetaminophen (Acetaminophen 325 Mg Tablet) 650 mg PO Q6H PRN PRN PRN Reason: Pain Score 1-10/Temp > 100.7 F Last Admin: 10/03/20 22:26 Dose: 650 mg Documented by: Dextrose (Dextrose 50%-Water 25 Gm/50 Ml Disp.Syrin) 0 gm IV X1 PRN; Protocol PRN Reason: Hypoglycemia Enoxaparin Sodium (Enoxaparin 40 Mg/0.4 Ml Syringe) 40 mg SC DAILY@0600 [facility] Last Admin: 10/05/20 06:48 Dose: 40 mg Documented by: Glucagon (Glucagon 1 Mg/Ml Syringe) 1 mg IM .X1 PRN PRN Reason: Hypoglycemia Sodium Chloride () 250 mls @ 15 mls/hr IV .[id number] PRN PRN Reason: Saline Flush Last Infusion: 10/05/20 09:53 Dose: 15 mls/hr Documented by: Sodium Chloride () 250 mls @ 15 mls/hr IV .[id number] PRN PRN Reason: Additional IVPB Infusion Sodium Chloride () 1,000 mls @ 75 mls/hr IV .[id number] [facility] Last Admin: 10/04/20 23:30 Dose: 75 mls/hr Documented by: Piperacillin Sod/Tazobactam (Sod 3.375 gm/ Sodium Chloride) 50 mls @ 12.5 mls/hr IV Q8 [facility] Last Infusion: 10/05/20 09:53 Dose: Infused Documented by: Vancomycin IV Pharmacy to Dose (1 ea/ Sodium Chloride) 500 mls @ 250 mls/hr IV X1 PRN; Protocol PRN Reason: Rx to Dose Vancomycin HCl 1,500 mg/ (Sodium Chloride) 530 mls @ 250 mls/hr IV Q12H [facility] Last Infusion: 10/05/20 07:42 Dose: Infused Documented by: Insulin Glargine (Insulin Glargine 100 Units/Ml Pen) 20 units SC BREAKFAST [facility] Last Admin: 10/05/20 09:39 Dose: 20 units Documented by: Insulin Human Lispro (Insulin Lispro 100 Unit/Ml Insuln.Pen) 0 unit SC Q6 [facility]; Protocol Last Admin: 10/05/20 12:05 Dose: 6 units Documented by: Melatonin (Melatonin 3 Mg Tablet) 3 mg PO QHS PRN PRN PRN Reason: INSOMNIA Morphine Sulfate (Morphine 2 Mg/Ml Syringe) 2 mg IV Q4H PRN PRN PRN Reason: pain 6-08/08 Last Admin: 10/05/20 10:50 Dose: 2 mg Documented by: Nutritional Formula (Nutritional Supplement (Edy) Packet) 1 packet PO BIDCM [facility] Last Admin: 10/05/20 09:39 Dose: 1 packet Documented by: Nutritional Formula (Lactose Free) (Glucerna Shake 120 Ml Liquid) 120 ml PO 4X/DAY [facility] Last Admin: 10/05/20 09:39 Dose: 120 ml Documented by: Ondansetron HCl (Ondansetron 4 Mg/2 Ml Vial) 4 mg IV Q8H PRN PRN PRN Reason: NAUSEA/VOMITING Senna/Docusate Sodium (Senna/Docusate Sodium 1 Tablet) 2 tablet PO BID PRN PRN PRN Reason: Constipation Last Admin: 10/05/20 10:50 Dose: 2 tablet Documented by: Sodium Chloride (0.9% Saline Lock 10 Ml Syringe) 10 - 40 ml IV UD PRN PRN Reason: SALINE FLUSH Last Admin: 10/04/20 05:13 Dose: 10 ml Documented by: Medical Necessity - Tobacco Use Smoking Status: Former smoker Assessment/Plan All Active Problems (Last Updated 10/03/20 @ 09:[address] Deann Calloway, DPM) Achilles rupture, left (Acute) Severe sepsis (Acute) Wound of foot (Acute) Hyperglycemia (Acute) Noncompliance with medication regimen (Acute) Infection of left foot (Acute) 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 (Acute) Left foot pain (Acute) 1. osteomyelitis * left heel * s/p debridement and bone biopsy on 10/04 * follow up cultures * on pip/tazo and vanc * podiatry on consult * consult ID for long-term recommendations 2. severe sepsis * POA * 2/2 above 3. DM2 * elevated * a1c 12.8 * on glargine and SSI * add scheduled log * will require insulin upon discharge 4. VTE prophylaxis: enoxaparin Inpatient E&M: [id number] [facility] Hosp L2
[2020-10-05] MEDS: Acetaminophen 325 MG Tablet 650 MG PO (13:54)
[2020-10-05] MEDS: oxyCODONE 5 MG Tablet PO ×2 (13:54→21:42)
[2020-10-05 14:00] VITALS: BP 118/56; PULSE 80; RESP 16; TEMP 36.9; O2SAT 98
--- NOTE | 2020-10-05 14:40 | CASEMGMT ---
Social Work Note SW in to speak with pt regarding discharge plans. SW introduced self and role at [facility]. Pt is alert and orientated, currently sleeping when this worker entered pt's room. Pt woke up but didn't open eyes to speak to this worker. Pt is homeless. SW provided pt with housing resources including [place] [id number], [facility] [employer], [facility] and Homeless shelters. SW discussed SNF placement with pt as pt will have HHC and IV antibiotics. Pt agreeable to SNF. SW provided pt with list of SNF that accept pt's insurance. Pt not looking at SNF list at this time. SW updated pt that this worker will return later today to discuss SNF placement. Pt states understanding. JOE then updated by RN that pt is requesting [facility]. [facility] not accepting pt's at this time. JOE in to speak with pt. SW updated pt that [facility] is not accepting pt's at this time. Pt chose [facility]. SW placed a call to Brii at [facility] and provided referral. SW faxed referral. Plan: SNF pending acceptance and pre-cert Sandra Ramachandran [employer] TECHNICIAN, TRANSFORMATION ANALYST
[2020-10-05 16:40] LABS: Bedside Glucose 248 mg/dL (70-110)
--- NOTE | 2020-10-05 16:52 | CON.PCM_ITS ---
Problem List (1) Osteomyelitis Status: Suspected Qualifiers: Osteomyelitis location: foot Laterality: left Reason for Consult: osteo Consulted by: Dr. Nettles History of Present Illness: The patient is a 60 year old M with uncontrolled DM, h/o smoking meth (in remission), homeless, presented with one week of necrotic L heel wound with pain, redness. Came to ED, started on vanc/zosyn, taken to OR 10/[address] Calloway. Feeling ok today. Full ROS performed and neg except as noted above. - Medical History Past Medical History (Chronic Problems): Chronic Problems (Last Updated 10/03/20 @ 09:[address] Deann Calloway, DPM) Diabetes (Chronic) COPD (chronic obstructive pulmonary disease) (Chronic) Rheumatoid arthritis (Chronic) Allergies/Adverse Reactions: Allergies No Known Allergies Allergy (Verified 09/08/20 14:32) Home Medications: Ambulatory Orders Medication Instructions Recorded NK 09/08/20 - Social History SMOKING STATUS:: Former smoker Vital Signs Temp Pulse Resp BP Pulse Ox 98.5 F 80 16 118/56 L 98 10/05/20 14:00 10/05/20 14:00 10/05/20 14:00 10/05/20 14:00 10/05/20 14:00 Oxygen Flow Rate (L/min) 2 Oxygen Delivery Method Room Air Weight: 77.156 kg Body Mass Index (BMI) 25.0 Finger Stick Blood Glucose 167 Microbiology Past 72 Hours 10/03/20 09:50 Gram Stain - Final Wound Drainage - Aerobic & Anaerobic Swabs Wound Culture - Preliminary Streptococcus agalactiae (B) Klebsiella pneumoniae sp pneum Staphylococcus aureus Gram positive anselmo Anaerobic Culture - Preliminary Checking for anaerobes, further studies to follow. 10/04/20 09:00 Gram Stain - Final Bone - Left Foot Wound Culture - Preliminary Staphylococcus species Beta streptococcus 10/04/20 09:00 Gram Stain - Final Tissue - Left Foot Wound Culture - Preliminary Streptococcus group B 10/03/20 03:08 Bacteria Detection (PCR) - Final Blood Culture (Wb) - Anticubital Left Streptococcus agalactiae (B) Blood Culture - Final Streptococcus agalactiae (B) 10/03/20 03:10 Blood Culture - Final Blood Culture (Wb) - Anticubital Right Streptococcus agalactiae (B) Klebsiella pneumoniae sp pneum 10/03/20 17:30 SARS-CoV-2 Antigen (Rapid) - Final Mucosa - Nasopharyngeal Laboratory Tests Past 24 Hrs 10/04/20 10/05/20 10/05/20 16:40 07:45 07:45 WBC 10.5 RBC 4.02 L Hgb 11.3 L Hct 34.4 L MCV 85.6 MCH 28.1 MCHC 32.8 RDW Std Deviation 39.4 RDW Coeff of Cheri 12.6 Plt Count 279 MPV 9.7 Immature Gran % (Auto) 0.500 Neut % (Auto) 71.5 H Lymph % (Auto) 17.4 L [place] % (Auto) 7.7 Eos % (Auto) 2.3 Baso % (Auto) 0.6 Absolute Neuts (auto) 7.5 Absolute Lymphs (auto) 1.83 Nucleated RBC % 0 Sodium 139 Potassium 3.6 Chloride 105 Carbon Dioxide 30.0 Anion Gap 4 L BUN 14 Creatinine 0.79 Estim Creat Clear Calc 98.19 Est GFR (MDRD) Af Amer 128 Est GFR (MDRD) Non-Af 106 BUN/Creatinine Ratio 17.8 Glucose 197 H Calcium 8.2 L Total Bilirubin 0.30 AST 13 L ALT 14 L Alkaline Phosphatase 94 Total Protein 5.9 L Albumin 2.0 L Globulin 3.9 Albumin/Globulin Ratio 0.5 L Vancomycin Trough 11.4 - Other Studies Radiology: [] reviewed Other Studies: [] Route of nutrition/ use of supplements: [] Nutritional Intake: [] IV Site: [] Wilkinson Catheter: [] - Physical Exam General: Alert, Oriented x3, Cooperative, No apparent distress HEENT: Atraumatic, PERRLA, EOMI Neck: Supple, No Nodes Lungs: Clear to auscultation, Normal air movement Cardiovascular: Regular rate, Regular Rhythm Abdomen: Soft, Non Tender, Non-Distended Extremities: No edema Skin: Ulcer/ Wound - reviewed photos IV Site: Peripheral Musculoskeletal: No Tenderness to Palpation of Joints or Extremities Neurological: Cranial nerves II-XII grossly intact - Assessment/Plan Antibiotics: [] Assessment/Plan: [] Active and Suspected Problems (Last Updated 10/03/20 @ 09:[address] Deann Calloway, DP) Severe sepsis (Acute) Wound of foot (Acute) Hyperglycemia (Acute) Noncompliance with medication regimen (Acute) Infection of left foot (Acute) 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 (Acute) Left foot pain (Acute) Osteomyelitis (Suspected) strep and klebs bacteremia due to L heel osteo with uncontrolled DM - surg cx with GBS, staph, klebs, GPR. PCR showing mSSA. A1C 12.8. OR 10/[address] Calloway for I&D. On vanc/zosyn, plan will be for iv abx for 6 week course. Will follow, thank you, d/w registered nurse hh case manager
[2020-10-05] MEDS: Insulin Lispro 100 UNIT/ML INSULN.PEN 8 UNIT SC (17:18)
[2020-10-05] MEDS: 0.9% Saline Lock 10 ML Syringe IV (19:26)
[2020-10-05 20:00] VITALS: BP 109/66; PULSE 76; RESP 18; TEMP 36.8; O2SAT 97
[2020-10-05 21:46] LABS: Bedside Glucose 163 mg/dL (70-110)
[2020-10-06] MEDS: oxyCODONE 5 MG Tablet 10 MG PO ×4 (02:29→19:44)
[2020-10-06 02:38] VITALS: BP 130/71; PULSE 81; RESP 18; TEMP 36.6; O2SAT 96
[2020-10-06] MEDS: Enoxaparin 40 MG/0.4 ML Syringe SC (05:03)
[2020-10-06 07:22] LABS: Anion Gap 3 (5-15); BUN 17 mg/dL (7-18); BUN/Creat Ratio 22.3 RATIO (10-20); Calcium,Total 8.6 mg/dL (8.5-10.1); Chloride 104 mmol/L (98-107); Creatinine, Serum 0.76 mg/dL (0.70-1.30); EST Glomerular Filtration Rate 110 mL/min (>60); Est Glom Filt Rate - Afr Amer 134 mL/min (>60); Estimated Creatinine Clearance 102.07 ml/min; Glucose 252 mg/dL (74-106); Potassium 3.9 mmol/L (3.5-5.1); Sodium Level 136 mmol/L (136-145)
[2020-10-06] MEDS: Insulin Lispro 100 UNIT/ML INSULN.PEN 8 UNIT SC ×3 (08:03→16:55)
[2020-10-06] MEDS: Insulin Lispro 100 UNIT/ML INSULN.PEN SC ×3 (08:04→16:56)
[2020-10-06 08:06] LABS: Bedside Glucose 244 mg/dL (70-110)
[2020-10-06 08:30] VITALS: BP 131/60; PULSE 81; RESP 18; TEMP 37; O2SAT 96
--- NOTE | 2020-10-06 09:22 | PN_ITS ---
Patient Problems: Active and Suspected Problems (Last Updated 10/03/20 @ 09:[address] Deann Calloway, [facility]) Severe sepsis (Acute) Wound of foot (Acute) Hyperglycemia (Acute) Noncompliance with medication regimen (Acute) Infection of left foot (Acute) 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 (Acute) Left foot pain (Acute) Osteomyelitis (Suspected) Subjective: Patient seen and examined bedside. He is resting comfortably in bed. Patient is requesting pain medication and breakfast. Patient reports no issues with the wound vac. Patient denies N/F/V/C/CP/SOB. - Physical Exam Vitals/I&O's: Vital Signs Temp Pulse Resp BP Pulse Ox 97.9 F 81 18 130/71 H 96 10/06/20 02:38 10/06/20 02:38 10/06/20 02:38 10/06/20 02:38 10/06/20 02:38 Oxygen Flow Rate (L/min) 2 Oxygen Delivery Method Room Air Weight: 80.3 kg Body Mass Index (BMI) 25.0 Finger Stick Blood Glucose 167 Intake and Output for Last 24 Hours 10/04/20 10/05/20 10/06/20 23:59 23:59 23:59 Intake Total 4352.42 / 4352.42 3326.0 / 3326.0 1197.00 / 1197.00 Output Total 1925 / 1925 3250 / 3250 1400 / 1400 Balance 2427.42 / 2427.42 76.0 / 76.0 -203.00 / -203.00 General: Alert, Oriented x3 HEENT: Atraumatic Extremities: No clubbing, No cyanosis, Capillary Refill Less than 3 Seconds, No Calf Tenderness Skin: Ulcer/ Wound - left heel with wound vac on with good seal Musculoskeletal: Tenderness - mild to left heel Neurological: Sensory exam intact to light touch and pain Psych/Mental Status: Normal Affect, Appropriate Microbiology Past 72 Hours 10/04/20 09:00 Bone - Left Foot Gram Stain - Final 10/04/20 09:00 Bone - Left Foot Wound Culture - Preliminary Staphylococcus species Beta streptococcus 10/04/20 09:00 Bone - Left Foot Anaerobic Culture - Preliminary Checking for anaerobes, further studies to follow. 10/04/20 09:00 Tissue - Left Foot Gram Stain - Final 10/04/20 09:00 Tissue - Left Foot Wound Culture - Final Streptococcus agalactiae (B) 10/04/20 09:00 Tissue - Left Foot Anaerobic Culture - Preliminary Checking for anaerobes, further studies to follow. 10/03/20 09:50 Wound Drainage - Aerobic & Anaerobic Swabs Gram Stain - Final 10/03/20 09:50 Wound Drainage - Aerobic & Anaerobic Swabs Wound Culture - Final Streptococcus agalactiae (B) Klebsiella pneumoniae sp pneum Staphylococcus aureus Corynebacterium amycolatum 10/03/20 09:50 Wound Drainage - Aerobic & Anaerobic Swabs Anaerobic Culture - Preliminary Checking for anaerobes, further studies to follow. 10/03/20 03:08 Blood Culture (Wb) - Anticubital Left Bacteria Detection (PCR) - Final Streptococcus agalactiae (B) 10/03/20 03:08 Blood Culture (Wb) - Anticubital Left Blood Culture - Final Streptococcus agalactiae (B) 10/03/20 03:10 Blood Culture (Wb) - Anticubital Right Blood Culture - Final Streptococcus agalactiae (B) Klebsiella pneumoniae sp pneum 10/03/20 17:30 Mucosa - Nasopharyngeal SARS-CoV-2 Antigen (Rapid) - Final Laboratory Results 10/05/20 11:56: POC Glucose 281 H 10/05/20 16:35: POC Glucose 248 H 10/05/20 21:35: POC Glucose 163 H 10/06/20 06:40: Sodium 136, Potassium 3.9, Chloride 104, Carbon Dioxide 29.0, Anion Gap 3 L, BUN 17, Creatinine 0.76, Estim Creat Clear Calc 102.07, Est GFR (MDRD) Af Amer 134, Est GFR (MDRD) Non-Af 110, BUN/Creatinine Ratio 22.3 H, Glucose 252 H, Calcium 8.6 10/06/20 07:57: POC Glucose 244 H Current Medications Acetaminophen (Acetaminophen 325 Mg Tablet) 650 mg PO Q6H PRN PRN PRN Reason: Pain Score 1-10/Temp > 100.7 F Last Admin: 10/05/20 13:54 Dose: 650 mg Documented by: Dextrose (Dextrose 50%-Water 25 Gm/50 Ml Disp.Syrin) 0 gm IV X1 PRN; Protocol PRN Reason: Hypoglycemia Enoxaparin Sodium (Enoxaparin 40 Mg/0.4 Ml Syringe) 40 mg SC DAILY@0600 TEDDY Last Admin: 10/06/20 05:03 Dose: 40 mg Documented by: Glucagon (Glucagon 1 Mg/Ml Syringe) 1 mg IM .X1 PRN PRN Reason: Hypoglycemia Sodium Chloride () 250 mls @ 15 mls/hr IV .[id number] PRN PRN Reason: Saline Flush Last Infusion: 10/05/20 21:36 Dose: 0 mls/hr Documented by: Sodium Chloride () 250 mls @ 15 mls/hr IV .[id number] PRN PRN Reason: Additional IVPB Infusion Last Infusion: 10/06/20 05:09 Dose: 0 mls/hr Documented by: Piperacillin Sod/Tazobactam (Sod 3.375 gm/ Sodium Chloride) 50 mls @ 12.5 mls/hr IV Q8 [facility] Last Admin: 10/06/20 05:02 Dose: 12.5 mls/hr Documented by: Vancomycin IV Pharmacy to Dose (1 ea/ Sodium Chloride) 500 mls @ 250 mls/hr IV X1 PRN; Protocol PRN Reason: Rx to Dose Vancomycin HCl 1,500 mg/ (Sodium Chloride) 530 mls @ 250 mls/hr IV Q12H [facility] Last Admin: 10/06/20 05:01 Dose: 250 mls/hr Documented by: Insulin Glargine (Insulin Glargine 100 Units/Ml Pen) 20 units SC BREAKFAST [facility] Last Admin: 10/06/20 08:04 Dose: 20 units Documented by: Insulin Human Lispro (Insulin Lispro 100 Unit/Ml Insuln.Pen) 8 unit SC TIDAC [facility] Last Admin: 10/06/20 08:03 Dose: 8 units Documented by: Insulin Human Lispro (Insulin Lispro 100 Unit/Ml Insuln.Pen) 0 unit SC ACHS [facility]; Protocol Last Admin: 10/06/20 08:04 Dose: 4 units Documented by: Melatonin (Melatonin 3 Mg Tablet) 3 mg PO QHS PRN PRN PRN Reason: INSOMNIA Morphine Sulfate (Morphine 2 Mg/Ml Syringe) 2 mg IV Q4H PRN PRN PRN Reason: breakthrough Last Admin: 10/05/20 10:50 Dose: 2 mg Documented by: Nutritional Formula (Nutritional Supplement (Edy) Packet) 1 packet PO BIDCM [facility] Last Admin: 10/06/20 08:03 Dose: 1 packet Documented by: Nutritional Formula (Lactose Free) (Glucerna Shake 120 Ml Liquid) 120 ml PO 4X/DAY TEDDY Last Admin: 10/05/20 21:38 Dose: 120 ml Documented by: Ondansetron HCl (Ondansetron 4 Mg/2 Ml Vial) 4 mg IV Q8H PRN PRN PRN Reason: NAUSEA/VOMITING Oxycodone HCl (Oxycodone 5 Mg Tablet) 5 mg PO Q6H PRN PRN PRN Reason: Pain Score 4-5 Last Admin: 10/05/20 21:42 Dose: 5 mg Documented by: Oxycodone HCl (Oxycodone 5 Mg Tablet) 10 mg PO Q6H PRN PRN PRN Reason: Pain Score 6-10 Last Admin: 10/06/20 08:09 Dose: 10 mg Documented by: Senna/Docusate Sodium (Senna/Docusate Sodium 1 Tablet) 2 tablet PO BID PRN PRN PRN Reason: Constipation Last Admin: 10/05/20 10:50 Dose: 2 tablet Documented by: Sodium Chloride (0.9% Saline Lock 10 Ml Syringe) 10 - 40 ml IV UD PRN PRN Reason: SALINE FLUSH Last Admin: 10/05/20 19:26 Dose: 10 ml Documented by: Medical Necessity - Tobacco Use Smoking Status: Former smoker Assessment/Plan All Active Problems (Last Updated 10/03/20 @ 09:[address] Deann Calloway, [facility]) Achilles rupture, left (Acute) Severe sepsis (Acute) Wound of foot (Acute) Hyperglycemia (Acute) Noncompliance with medication regimen (Acute) Infection of left foot (Acute) 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 (Acute) Left foot pain (Acute) Sepsis Left foot infection s/p I&D with calcaneal biopsy 10/04/20 Left plantar heel eschar with wound and necrotic fascial tissue Osteomyelitis work-up in process Uncontrolled diabetes with current hyperglycemia History of tobacco and drug abuse Other comorbidities noted Patient seen and examined. 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 Patient prefers pillows for this. Hemoglobin A1c 12.8. Discussed with the patient that this can impact the wounds ability to heel. Would appreciate hospitalist help in managing blood sugars. Please do not hesitate to call if you have any questions.
[2020-10-06 09:37] VITALS: O2SAT 95
--- NOTE | 2020-10-06 10:08 | CASEMGMT ---
Addendum entered by Sandra Ramachandran 10/06/20 10:35: JOE received call from Brii at [facility] stating [facility] accept due to not having any beds available at this time but states [facility] is able to accept pt. SW in to speak with pt. SW updated pt that [facility] is not able to accept due to no beds but [facility] is able to accept pt. Pt agreeable to [facility]. JOE placed a call to Brii at [facility] and updated her pt is agreeable to [facility]. JOE updated Brii that pt is getting PICC line placed today, could be ready for discharge today after PICC line. JOE faxed antibiotics scripts, wound vac information to Brii at [facility]. Brii confirms no pre-cert is needed. Plan: [facility] once medically cleared Original Note: Social Work Note JOE placed a call to Brii at [facility] regarding referral. Brii states she is checking on bed availability and will let this worker know if they are able to accept pt or not. JOE waiting for call back from Brii at [facility]. Plan: SNF pending acceptance and pre-cert Snadra Ramachandran PACU NURSE, HYDROELECTRIC STATION CHIEF
[2020-10-06 10:09] VITALS: RESP 18
--- NOTE | 2020-10-06 10:25 | NURSING ---
[facility] called at this time for PICC line placement. They will call back with an ETA.
[2020-10-06] MEDS: Glucerna Shake 120 ML LIQUID PO ×3 (10:48→17:49)
--- NOTE | 2020-10-06 11:24 | PCM.PN.ID ---
Patient Problems: Active and Suspected Problems (Last Updated 10/03/20 @ 09:[address] Deann Calloway, [facility]) Severe sepsis (Acute) Wound of foot (Acute) Hyperglycemia (Acute) Noncompliance with medication regimen (Acute) Infection of left foot (Acute) 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 (Acute) Left foot pain (Acute) Osteomyelitis (Suspected) Subjective: Feeling ok, no fever, no n/v/d - Physical Exam Vitals/I&O's: Vital Signs Temp Pulse Resp BP Pulse Ox 98.6 F 81 18 131/60 H 96 10/06/20 08:30 10/06/20 08:30 10/06/20 10:09 10/06/20 08:30 10/06/20 08:30 Oxygen Flow Rate (L/min) 2 Oxygen Delivery Method Room Air Weight: 80.3 kg Body Mass Index (BMI) 25.0 Finger Stick Blood Glucose 167 Intake and Output for Last 24 Hours 10/04/20 10/05/20 10/06/20 23:59 23:59 23:59 Intake Total 4352.42 / 4352.42 3326.0 / 3326.0 1197.00 / 1197.00 Output Total 1925 / 1925 3250 / 3250 1400 / 1400 Balance 2427.42 / 2427.42 76.0 / 76.0 -203.00 / -203.00 General: Alert, Cooperative, No apparent distress Lungs: Clear to auscultation, Normal air movement Cardiovascular: Regular rate, Regular Rhythm Abdomen: Soft, Non Tender, Non-Distended Skin: Ulcer/ Wound - reviewed photo Microbiology Past 72 Hours 10/04/20 09:00 Bone - Left Foot Gram Stain - Final 10/04/20 09:00 Bone - Left Foot Wound Culture - Preliminary Staphylococcus species Beta streptococcus 10/04/20 09:00 Bone - Left Foot Anaerobic Culture - Preliminary Checking for anaerobes, further studies to follow. 10/04/20 09:00 Tissue - Left Foot Gram Stain - Final 10/04/20 09:00 Tissue - Left Foot Wound Culture - Final Streptococcus agalactiae (B) 10/04/20 09:00 Tissue - Left Foot Anaerobic Culture - Preliminary Checking for anaerobes, further studies to follow. 10/03/20 09:50 Wound Drainage - Aerobic & Anaerobic Swabs Gram Stain - Final 10/03/20 09:50 Wound Drainage - Aerobic & Anaerobic Swabs Wound Culture - Final Streptococcus agalactiae (B) Klebsiella pneumoniae sp pneum Staphylococcus aureus Corynebacterium amycolatum 10/03/20 09:50 Wound Drainage - Aerobic & Anaerobic Swabs Anaerobic Culture - Preliminary Checking for anaerobes, further studies to follow. 10/03/20 03:08 Blood Culture (Wb) - Anticubital Left Bacteria Detection (PCR) - Final Streptococcus agalactiae (B) 10/03/20 03:08 Blood Culture (Wb) - Anticubital Left Blood Culture - Final Streptococcus agalactiae (B) 10/03/20 03:10 Blood Culture (Wb) - Anticubital Right Blood Culture - Final Streptococcus agalactiae (B) Klebsiella pneumoniae sp pneum 10/03/20 17:30 Mucosa - Nasopharyngeal SARS-CoV-2 Antigen (Rapid) - Final Laboratory Results 10/05/20 11:56: POC Glucose 281 H 10/05/20 16:35: POC Glucose 248 H 10/05/20 21:35: POC Glucose 163 H 10/06/20 06:40: Sodium 136, Potassium 3.9, Chloride 104, Carbon Dioxide 29.0, Anion Gap 3 L, BUN 17, Creatinine 0.76, Estim Creat Clear Calc 102.07, Est GFR (MDRD) Af Amer 134, Est GFR (MDRD) Non-Af 110, BUN/Creatinine Ratio 22.3 H, Glucose 252 H, Calcium 8.6 10/06/20 07:57: POC Glucose 244 H Current Medications Acetaminophen (Acetaminophen 325 Mg Tablet) 650 mg PO Q6H PRN PRN PRN Reason: Pain Score 1-10/Temp > 100.7 F Last Admin: 10/05/20 13:54 Dose: 650 mg Documented by: Dextrose (Dextrose 50%-Water 25 Gm/50 Ml Disp.Syrin) 0 gm IV X1 PRN; Protocol PRN Reason: Hypoglycemia Enoxaparin Sodium (Enoxaparin 40 Mg/0.4 Ml Syringe) 40 mg SC DAILY@0600 TEDDY Last Admin: 10/06/20 05:03 Dose: 40 mg Documented by: Glucagon (Glucagon 1 Mg/Ml Syringe) 1 mg IM .X1 PRN PRN Reason: Hypoglycemia Sodium Chloride () 250 mls @ 15 mls/hr IV .[id number] PRN PRN Reason: Saline Flush Last Infusion: 10/05/20 21:36 Dose: 0 mls/hr Documented by: Sodium Chloride () 250 mls @ 15 mls/hr IV .[id number] PRN PRN Reason: Additional IVPB Infusion Last Infusion: 10/06/20 05:09 Dose: 0 mls/hr Documented by: Ceftriaxone Sodium 2 gm/ (Sodium Chloride) 50 mls @ 100 mls/hr IV Q24 REPLACED BY [facility] Last Admin: 10/06/20 10:48 Dose: 100 mls/hr Documented by: Insulin Glargine (Insulin Glargine 100 Units/Ml Pen) 20 units SC BREAKFAST REPLACED BY [facility] Last Admin: 10/06/20 08:04 Dose: 20 units Documented by: Insulin Human Lispro (Insulin Lispro 100 Unit/Ml Insuln.Pen) 8 unit SC TIDAC REPLACED BY [facility] Last Admin: 10/06/20 08:03 Dose: 8 units Documented by: Insulin Human Lispro (Insulin Lispro 100 Unit/Ml Insuln.Pen) 0 unit SC ACHS REPLACED [facility]; Protocol Last Admin: 10/06/20 08:04 Dose: 4 units Documented by: Melatonin (Melatonin 3 Mg Tablet) 3 mg PO QHS PRN PRN PRN Reason: INSOMNIA Metronidazole (Metronidazole 500 Mg Tablet) 500 mg PO TID REPLACED BY [facility] Morphine Sulfate (Morphine 2 Mg/Ml Syringe) 2 mg IV Q4H PRN PRN PRN Reason: breakthrough Last Admin: 10/05/20 10:50 Dose: 2 mg Documented by: Nutritional Formula (Nutritional Supplement (Edy) Packet) 1 packet PO BIDCM REPLACED BY [facility] Last Admin: 10/06/20 08:03 Dose: 1 packet Documented by: Nutritional Formula (Lactose Free) (Glucerna Shake 120 Ml Liquid) 120 ml PO 4X/DAY REPLACED BY [facility] Last Admin: 10/06/20 10:48 Dose: 120 ml Documented by: Ondansetron HCl (Ondansetron 4 Mg/2 Ml Vial) 4 mg IV Q8H PRN PRN PRN Reason: NAUSEA/VOMITING Oxycodone HCl (Oxycodone 5 Mg Tablet) 5 mg PO Q6H PRN PRN PRN Reason: Pain Score 4-5 Last Admin: 10/05/20 21:42 Dose: 5 mg Documented by: Oxycodone HCl (Oxycodone 5 Mg Tablet) 10 mg PO Q6H PRN PRN PRN Reason: Pain Score 6-10 Last Admin: 10/06/20 08:09 Dose: 10 mg Documented by: Senna/Docusate Sodium (Senna/Docusate Sodium 1 Tablet) 2 tablet PO BID PRN PRN PRN Reason: Constipation Last Admin: 10/05/20 10:50 Dose: 2 tablet Documented by: Sodium Chloride (0.9% Saline Lock 10 Ml Syringe) 10 - 40 ml IV UD PRN PRN Reason: SALINE FLUSH Last Admin: 10/05/20 19:26 Dose: 10 ml Documented by: Medical Necessity - Tobacco Use Smoking Status: Former smoker Route of nutrition/ use of supplements: [] Nutritional Intake: [] IV Site: [] Wilkinson Catheter: [] - Assessment/Plan Antibiotics: [] Assessment/Plan: [] Active and Suspected Problems (Last Updated 10/03/20 @ 09:[address] Deann Calloway, [facility]) Severe sepsis (Acute) Wound of foot (Acute) Hyperglycemia (Acute) Noncompliance with medication regimen (Acute) Infection of left foot (Acute) 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 (Acute) Left foot pain (Acute) Osteomyelitis (Suspected) strep and klebs bacteremia due to L heel osteo with uncontrolled DM - surg cx with GBS, MSSA, klebs, GPR. PCR showing mSSA. A1C 12.8. OR 10/[address] Calloway for I&D. On vanc/zosyn, will order picc, plan will be for iv ceftriaxone for 2 weeks and po flagyl for 2 week course. Weekly bmp, cbc, and esr. ID followup in 2 weeks. Will follow, d/w immigration case worker
[2020-10-06 12:05] LABS: Bedside Glucose 211 mg/dL (70-110)
--- NOTE | 2020-10-06 13:44 | PCM.PN.HOSP ---
Patient Problems: Active and Suspected Problems (Last Updated 10/03/20 @ 09:[address] Deann Calloway, [facility]) Severe sepsis (Acute) Wound of foot (Acute) Hyperglycemia (Acute) Noncompliance with medication regimen (Acute) Infection of left foot (Acute) 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 (Acute) Left foot pain (Acute) Osteomyelitis (Suspected) Reason for Visit: osteomyelitis Subjective: No events overnight. Vitals/I&O's: Vital Signs Temp Pulse Resp BP Pulse Ox 37.0 C 81 18 131/60 H 95 10/06/20 08:30 10/06/20 08:30 10/06/20 10:09 10/06/20 08:30 10/06/20 09:37 Oxygen Flow Rate (L/min) 2 Oxygen Delivery Method Room Air Weight: 80.3 kg Body Mass Index (BMI) 25.0 Finger Stick Blood Glucose 167 Intake and Output for Last 24 Hours 10/04/20 10/05/20 10/06/20 23:59 23:59 23:59 Intake Total 4352.42 / 4352.42 3326.0 / 3326.0 1827.00 / 1827.00 Output Total 1925 / 1925 3250 / 3250 1400 / 1400 Balance 2427.42 / 2427.42 76.0 / 76.0 427.00 / 427.00 General: Alert, No apparent distress HEENT: Atraumatic, Normocephalic Neck: No Nodes, Thyroid Normal Size and Texture Lungs: Clear to auscultation, Normal air movement, No rhonchi, No wheeze, No rales Cardiovascular: Regular rate, Regular Rhythm, Normal S1, Normal S2, No murmurs Abdomen: Bowel Sounds Present, Soft, Non Tender, Non-Distended, No Hepato-splenomegaly Extremities: No edema, No Calf Tenderness Microbiology Past 72 Hours 10/04/20 09:00 Bone - Left Foot Gram Stain - Final 10/04/20 09:00 Bone - Left Foot Wound Culture - Preliminary Staphylococcus species Beta streptococcus 10/04/20 09:00 Bone - Left Foot Anaerobic Culture - Preliminary Checking for anaerobes, further studies to follow. 10/04/20 09:00 Tissue - Left Foot Gram Stain - Final 10/04/20 09:00 Tissue - Left Foot Wound Culture - Final Streptococcus agalactiae (B) 10/04/20 09:00 Tissue - Left Foot Anaerobic Culture - Preliminary Checking for anaerobes, further studies to follow. 10/03/20 09:50 Wound Drainage - Aerobic & Anaerobic Swabs Gram Stain - Final 10/03/20 09:50 Wound Drainage - Aerobic & Anaerobic Swabs Wound Culture - Final Streptococcus agalactiae (B) Klebsiella pneumoniae sp pneum Staphylococcus aureus Corynebacterium amycolatum 10/03/20 09:50 Wound Drainage - Aerobic & Anaerobic Swabs Anaerobic Culture - Preliminary Checking for anaerobes, further studies to follow. 10/03/20 03:08 Blood Culture (Wb) - Anticubital Left Bacteria Detection (PCR) - Final Streptococcus agalactiae (B) 10/03/20 03:08 Blood Culture (Wb) - Anticubital Left Blood Culture - Final Streptococcus agalactiae (B) 10/03/20 03:10 Blood Culture (Wb) - Anticubital Right Blood Culture - Final Streptococcus agalactiae (B) Klebsiella pneumoniae sp pneum 10/03/20 17:30 Mucosa - Nasopharyngeal SARS-CoV-2 Antigen (Rapid) - Final Laboratory Results 10/05/20 16:35: POC Glucose 248 H 10/05/20 21:35: POC Glucose 163 H 10/06/20 06:40: Sodium 136, Potassium 3.9, Chloride 104, Carbon Dioxide 29.0, Anion Gap 3 L, BUN 17, Creatinine 0.76, Estim Creat Clear Calc 102.07, Est GFR (MDRD) Af Amer 134, Est GFR (MDRD) Non-Af 110, BUN/Creatinine Ratio 22.3 H, Glucose 252 H, Calcium 8.6 10/06/20 07:57: POC Glucose 244 H 10/06/20 11:58: POC Glucose 211 H Current Medications Acetaminophen (Acetaminophen 325 Mg Tablet) 650 mg PO Q6H PRN PRN PRN Reason: Pain Score 1-10/Temp > 100.7 F Last Admin: 10/05/20 13:54 Dose: 650 mg Documented by: Dextrose (Dextrose 50%-Water 25 Gm/50 Ml Disp.Syrin) 0 gm IV X1 PRN; Protocol PRN Reason: Hypoglycemia Enoxaparin Sodium (Enoxaparin 40 Mg/0.4 Ml Syringe) 40 mg SC DAILY@0600 TEDDY Last Admin: 10/06/20 05:03 Dose: 40 mg Documented by: Glucagon (Glucagon 1 Mg/Ml Syringe) 1 mg IM .X1 PRN PRN Reason: Hypoglycemia Sodium Chloride () 250 mls @ 15 mls/hr IV .[id number] PRN PRN Reason: Saline Flush Last Admin: 10/06/20 13:31 Dose: 15 mls/hr Documented by: Sodium Chloride () 250 mls @ 15 mls/hr IV .[id number] PRN PRN Reason: Additional IVPB Infusion Last Infusion: 10/06/20 13:31 Dose: Infused Documented by: Ceftriaxone Sodium 2 gm/ (Sodium Chloride) 50 mls @ 100 mls/hr IV Q24 [facility] Last Infusion: 10/06/20 11:18 Dose: Infused Documented by: Insulin Glargine (Insulin Glargine 100 Units/Ml Pen) 20 units SC BREAKFAST [facility] Last Admin: 10/06/20 08:04 Dose: 20 units Documented by: Insulin Human Lispro (Insulin Lispro 100 Unit/Ml Insuln.Pen) 8 unit SC TIDAC [facility] Last Admin: 10/06/20 12:00 Dose: 8 units Documented by: Insulin Human Lispro (Insulin Lispro 100 Unit/Ml Insuln.Pen) 0 unit SC ACHS [facility]; Protocol Last Admin: 10/06/20 12:00 Dose: 4 units Documented by: Melatonin (Melatonin 3 Mg Tablet) 3 mg PO QHS PRN PRN PRN Reason: INSOMNIA Metronidazole (Metronidazole 500 Mg Tablet) 500 mg PO TID [facility] Morphine Sulfate (Morphine 2 Mg/Ml Syringe) 2 mg IV Q4H PRN PRN PRN Reason: breakthrough Last Admin: 10/05/20 10:50 Dose: 2 mg Documented by: Nutritional Formula (Nutritional Supplement (Edy) Packet) 1 packet PO BIDCM [facility] Last Admin: 10/06/20 08:03 Dose: 1 packet Documented by: Nutritional Formula (Lactose Free) (Glucerna Shake 120 Ml Liquid) 120 ml PO 4X/DAY [facility] Last Admin: 10/06/20 10:48 Dose: 120 ml Documented by: Ondansetron HCl (Ondansetron 4 Mg/2 Ml Vial) 4 mg IV Q8H PRN PRN PRN Reason: NAUSEA/VOMITING Oxycodone HCl (Oxycodone 5 Mg Tablet) 5 mg PO Q6H PRN PRN PRN Reason: Pain Score 4-5 Last Admin: 10/05/20 21:42 Dose: 5 mg Documented by: Oxycodone HCl (Oxycodone 5 Mg Tablet) 10 mg PO Q6H PRN PRN PRN Reason: Pain Score 6-10 Last Admin: 10/06/20 08:09 Dose: 10 mg Documented by: Senna/Docusate Sodium (Senna/Docusate Sodium 1 Tablet) 2 tablet PO BID PRN PRN PRN Reason: Constipation Last Admin: 10/05/20 10:50 Dose: 2 tablet Documented by: Sodium Chloride (0.9% Saline Lock 10 Ml Syringe) 10 - 40 ml IV UD PRN PRN Reason: SALINE FLUSH Last Admin: 10/05/20 19:26 Dose: 10 ml Documented by: STROKE Vital Signs/Narrative: Vital Signs Resp 10/06/20 10:09 18 Medical Necessity - Tobacco Use Smoking Status: Former smoker Assessment/Plan All Active Problems (Last Updated 10/03/20 @ 09:[address] Deann Calloway, [facility]) Achilles rupture, left (Acute) Severe sepsis (Acute) Wound of foot (Acute) Hyperglycemia (Acute) Noncompliance with medication regimen (Acute) Infection of left foot (Acute) 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 (Acute) Left foot pain (Acute) 1. osteomyelitis left heel s/p debridement and bone biopsy on 10/04 follow up cultures on CTX and metronidazole for 2 weeks podiatry on consult 2. severe sepsis POA 2/2 above 3. DM2 elevated a1c 12.8 on glargine and SSI add scheduled log will require insulin upon discharge 4. VTE prophylaxis: enoxaparin Disposition pending insurance authorization. Inpatient E&M: [id number] [facility] L2
[2020-10-06] MEDS: metroNIDAZOLE 500 MG Tablet PO (13:49)
--- NOTE | 2020-10-06 14:47 | NURSING ---
This nurse called inspector technician at this time as they never called back with an ETA for PICC line placement. They do not have a time yet, but will call back when a nurse is available.
[2020-10-06 15:14] VITALS: BP 120/48; PULSE 83; RESP 18; TEMP 37.2; O2SAT 96
--- NOTE | 2020-10-06 15:29 | CASEMGMT ---
Addendum entered by Sandra Ramachandran 10/06/20 16:18: JOE faxed completed discharge paperwork to [facility] including transfer to extended care facility, signed medication list, any script, HENS, COVID screening tool. Original in SNF folder and copy on pt's chart. SW updated pt that after PICC gets placed, he will discharge to [facility]. Pt states understanding. JOE updated confidential secretary and Charge Nurse that once PICC is placed, transportation will need to be arranged. JOE placed a call to Brii at [facility] and updated her discharge paperwork has been faxed. Pt will likely be discharged today if PICC can be placed today. Brii states understanding. Plan: [facility] once medically cleared Original Note: Social Work Note Pt is able to discharge to [facility] today after PICC is placed. Physician updated. JOE spoke with Charge Nurse, no time yet for PICC. JOE placed a call to Brii at [facility] and updated her no time has been decided for PICC placement but if PICC is able to be placed today, pt will likely still discharge today. Brii states understanding, states pt can discharge to [facility] once PICC is placed. JOE completed convalescent 7000 in HENS. JOE placed Green Sheet, COVID screening tool, HENS and transportation form on pt's chart. Plan: [facility] once medically cleared Sandra Ramachandran HYPNOTHERAPIST, CHEF PASSENGER VESSEL
--- NOTE | 2020-10-06 15:46 | PCM.TXEXTCAR ---
- Diet 10/04/20 09:02 Diet: Carbohydrate Controlled Is pt able to select menu?: Yes - Routine Orders/Code Status Routine Lab Work: CBC, BMP Code Status: Full Code - Wound(s) L foot Wound Type: debridement wound left heel Wound Type: Neuropathic/Diabetic Foot Ulcer Dressing Change: applied KCI wound VAC - Therapies Weight Bearing: Non weight bearing - LLE Physical Therapy: Eval and Treat Occupational Therapy: Eval and Treat - Allergies/Procedures Done in Hospital Allergies/Adverse Reactions: Allergies No Known Allergies Allergy (Verified 09/08/20 14:32) - Type of Care/Length of Stay Estimated LOS: Convalescent Care Less Than 30 days Type of Care Needed: Skilled Rehab Potential: Fair Prognosis: Fair - Additional Orders/Day of Discharge Day of Discharge: 10/06/20 - Dietary and Speech Recommendations Dietitian Recommendations/Changes: Rec 2000 hung Consistent CHO diet when medically able. Will continue Edy bid to help w/ wound healing. Will continue glucerna shake 4x/day w/ meals to help w/ wound healing - Follow Up Care Primary Care Physician: Care Physician,No Primary [Primary Care Provider] - Please Follow Up With: Deann Calloway DPM When: 2 weeks Please Follow Up With: Charles De Leon MD When: 2 weeks
--- NOTE | 2020-10-06 15:53 | DS.PCM_ITS ---
Discharge Date and Diagnosis - Problem List Patient Problems: Active and Suspected Problems (Last Updated 10/03/20 @ 09:[address] Deann Calloway DPM) Severe sepsis (Acute) Wound of foot (Acute) Hyperglycemia (Acute) Noncompliance with medication regimen (Acute) Infection of left foot (Acute) 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 (Acute) Left foot pain (Acute) Osteomyelitis (Suspected) Date of Admission: 10/03/20 Date of Discharge: 10/06/20 - Primary Discharge Diagnosis Acute Problems: Active Problems (Last Updated 10/03/20 @ 09:[address] Deann Calloway DPM) Severe sepsis (Acute) Wound of foot (Acute) Hyperglycemia (Acute) Noncompliance with medication regimen (Acute) Infection of left foot (Acute) 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 (Acute) Left foot pain (Acute) Suspected Problems: Suspected Problems (Last Updated 10/03/20 @ 09:[address] Deann Calloway DPM) Osteomyelitis (Suspected) - Secondary Discharge Diagnosis Chronic Problems: Chronic Problems (Last Updated 10/03/20 @ 09:[address] Deann Calloway DPM) Diabetes (Chronic) COPD (chronic obstructive pulmonary disease) (Chronic) Rheumatoid arthritis (Chronic) Hospital Course and Treatment Imaging Results: Clinical Impression(s) from Imaging Studies Foot X-Ray 10/03/20 02:56 IMPRESSION: Large soft tissue ulceration of the heel without definite evidence for osteomyelitis. Electronically Signed: Anne Kwok MD at 4:04 EST , Service support , Lower Extremity MRI 10/03/20 05:56 IMPRESSION: Osteomyelitis of the calcaneus with soft tissue injury. Achilles tendon tear. Electronically Signed: Tarik Smith MD at 15:10 EST , Service support , Os Calcis X-ray 10/04/20 07:48 IMPRESSION: Limited diagnostic information on fluoroscopic view of the left heel during surgery. Electronically Signed: David Tai MD ([place]) at 16:41 EST , Service support , Consultations 10/06/20 08:22 Consult: Onc/Wound/inshore undersea warfare officer Routine Comment: Reason for Consult:: vac heel Moises, JOSEPH Calloway, Podiatry Operations: - - excisional ulcer including necrotic muscle debridement with versajet, left heel. bone biopsy, left calcaneus Summary of Care Provided: The patient is a 60 year old M presents with left foot wound. Found to have OM of left calcaneus with untreated DM2. 1. osteomyelitis * left heel * s/p debridement and bone biopsy on 10/04 * cultures showed GBS, klebsiella pneumoniae, MSSA * on CTX and metronidazole for 2 weeks. PICC placed * podiatry and ID follow up * NWB 2. severe sepsis * POA * 2/2 above 3. DM2 * elevated * a1c 12.8 * on glargine and SSI, not on anything prior * add scheduled log * will require insulin upon discharge 4. VTE prophylaxis w LMWH while NWB to LLE. He will need a PCP for follow up as well.[] Patient Problems: Active and Suspected Problems (Last Updated 10/03/20 @ 09:[address] Deann Calloway, DPM) Severe sepsis (Acute) Wound of foot (Acute) Hyperglycemia (Acute) Noncompliance with medication regimen (Acute) Infection of left foot (Acute) 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 (Acute) Left foot pain (Acute) Osteomyelitis (Suspected) - Physical Exam Vitals/I&O's: Vital Signs Temp Pulse Resp BP Pulse Ox 37.2 C 83 18 120/48 L 96 10/06/20 15:14 10/06/20 15:14 10/06/20 15:14 10/06/20 15:14 10/06/20 15:14 Oxygen Flow Rate (L/min) 2 Oxygen Delivery Method Room Air Weight: 80.3 kg Body Mass Index (BMI) 25.0 Finger Stick Blood Glucose 167 Intake and Output for Last 24 Hours 10/04/20 10/05/20 10/06/20 23:59 23:59 23:59 Intake Total 4352.42 / 4352.42 3326.0 / 3326.0 2782.25 / 2782.25 Output Total 1925 / 1925 3250 / 3250 2150 / 2150 Balance 2427.42 / 2427.42 76.0 / 76.0 632.25 / 632.25 Microbiology Past 72 Hours 10/04/20 09:00 Bone - Left Foot Gram Stain - Final 10/04/20 09:00 Bone - Left Foot Wound Culture - Preliminary Staphylococcus species Beta streptococcus 10/04/20 09:00 Bone - Left Foot Anaerobic Culture - Preliminary Checking for anaerobes, further studies to follow. 10/04/20 09:00 Tissue - Left Foot Gram Stain - Final 10/04/20 09:00 Tissue - Left Foot Wound Culture - Final Streptococcus agalactiae (B) 10/04/20 09:00 Tissue - Left Foot Anaerobic Culture - Preliminary Checking for anaerobes, further studies to follow. 10/03/20 09:50 Wound Drainage - Aerobic & Anaerobic Swabs Gram Stain - Final 10/03/20 09:50 Wound Drainage - Aerobic & Anaerobic Swabs Wound Culture - Final Streptococcus agalactiae (B) Klebsiella pneumoniae sp pneum Staphylococcus aureus Corynebacterium amycolatum 10/03/20 09:50 Wound Drainage - Aerobic & Anaerobic Swabs Anaerobic Culture - Preliminary Checking for anaerobes, further studies to follow. 10/03/20 03:08 Blood Culture (Wb) - Anticubital Left Bacteria Detection (PCR) - Final Streptococcus agalactiae (B) 10/03/20 03:08 Blood Culture (Wb) - Anticubital Left Blood Culture - Final Streptococcus agalactiae (B) 10/03/20 03:10 Blood Culture (Wb) - Anticubital Right Blood Culture - Final Streptococcus agalactiae (B) Klebsiella pneumoniae sp pneum 10/03/20 17:30 Mucosa - Nasopharyngeal SARS-CoV-2 Antigen (Rapid) - Final Laboratory Results 10/05/20 16:35: POC Glucose 248 H 10/05/20 21:35: POC Glucose 163 H 10/06/20 06:40: Sodium 136, Potassium 3.9, Chloride 104, Carbon Dioxide 29.0, Anion Gap 3 L, BUN 17, Creatinine 0.76, Estim Creat Clear Calc 102.07, Est GFR ( MDRD) Af Amer 134, Est GFR (MDRD) Non-Af 110, BUN/Creatinine Ratio 22.3 H, Glucose 252 H, Calcium 8.6 10/06/20 07:57: POC Glucose 244 H 10/06/20 11:58: POC Glucose 211 H Current Medications Acetaminophen (Acetaminophen 325 Mg Tablet) 650 mg PO Q6H PRN PRN PRN Reason: Pain Score 1-10/Temp > 100.7 F Last Admin: 10/05/20 13:54 Dose: 650 mg Documented by: Dextrose (Dextrose 50%-Water 25 Gm/50 Ml Disp.Syrin) 0 gm IV X1 PRN; Protocol PRN Reason: Hypoglycemia Enoxaparin Sodium (Enoxaparin 40 Mg/0.4 Ml Syringe) 40 mg SC DAILY@0600 FOR[facility], [facility] Last Admin: 10/06/20 05:03 Dose: 40 mg Documented by: Glucagon (Glucagon 1 Mg/Ml Syringe) 1 mg IM .X1 PRN PRN Reason: Hypoglycemia Sodium Chloride () 250 mls @ 15 mls/hr IV .[id number] PRN PRN Reason: Saline Flush Last Infusion: 10/06/20 13:52 Dose: 0 mls/hr Documented by: Sodium Chloride () 250 mls @ 15 mls/hr IV .[id number] PRN PRN Reason: Additional IVPB Infusion Last Infusion: 10/06/20 13:31 Dose: Infused Documented by: Ceftriaxone Sodium 2 gm/ (Sodium Chloride) 50 mls @ 100 mls/hr IV Q24 [facility], [facility] Last Infusion: 10/06/20 11:18 Dose: Infused Documented by: Insulin Glargine (Insulin Glargine 100 Units/Ml Pen) 20 units SC BREAKFAST [facility], [facility] Last Admin: 10/06/20 08:04 Dose: 20 units Documented by: Insulin Human Lispro (Insulin Lispro 100 Unit/Ml Insuln.Pen) 8 unit SC TIDAC [facility], [facility]1983 Last Admin: 10/06/20 12:00 Dose: 8 units Documented by: Insulin Human Lispro (Insulin Lispro 100 Unit/Ml Insuln.Pen) 0 unit SC ACHS [facility], [facility]; Protocol Last Admin: 10/06/20 12:00 Dose: 4 units Documented by: Melatonin (Melatonin 3 Mg Tablet) 3 mg PO QHS PRN PRN PRN Reason: INSOMNIA Metronidazole (Metronidazole 500 Mg Tablet) 500 mg PO TID [facility] Last Admin: 10/06/20 13:49 Dose: 500 mg Documented by: Morphine Sulfate (Morphine 2 Mg/Ml Syringe) 2 mg IV Q4H PRN PRN PRN Reason: breakthrough Last Admin: 10/05/20 10:50 Dose: 2 mg Documented by: Nutritional Formula (Nutritional Supplement (Edy) Packet) 1 packet PO BIDCM [facility] Last Admin: 10/06/20 08:03 Dose: 1 packet Documented by: Nutritional Formula (Lactose Free) (Glucerna Shake 120 Ml Liquid) 120 ml PO 4X/DAY [facility] Last Admin: 10/06/20 13:49 Dose: 120 ml Documented by: Ondansetron HCl (Ondansetron 4 Mg/2 Ml Vial) 4 mg IV Q8H PRN PRN PRN Reason: NAUSEA/VOMITING Oxycodone HCl (Oxycodone 5 Mg Tablet) 5 mg PO Q6H PRN PRN PRN Reason: Pain Score 4-5 Last Admin: 10/05/20 21:42 Dose: 5 mg Documented by: Oxycodone HCl (Oxycodone 5 Mg Tablet) 10 mg PO Q6H PRN PRN PRN Reason: Pain Score 6-10 Last Admin: 10/06/20 13:50 Dose: 10 mg Documented by: Senna/Docusate Sodium (Senna/Docusate Sodium 1 Tablet) 2 tablet PO BID PRN PRN PRN Reason: Constipation Last Admin: 10/05/20 10:50 Dose: 2 tablet Documented by: Sodium Chloride (0.9% Saline Lock 10 Ml Syringe) 10 - 40 ml IV UD PRN PRN Reason: SALINE FLUSH Last Admin: 10/05/20 19:26 Dose: 10 ml Documented by: Discharge Diet: 1800 Calorie Control Diet Home Medications: Medications to take at Discharge Acetaminophen [Tylenol Tablet] 650 mg PO Q6H PRN PRN tab 10/06/20 Ceftriaxone 2 gm IV Q24 #40 vial 10/06/20 Enoxaparin [Lovenox] 40 mg SC DAILY@0600 syringe 10/06/20 Insulin Glargine [Lantus SoloStar Pen] 20 units SC BREAKFAST pen 10/06/20 Insulin Lispro [Humalog KwikPen] 8 unit SC TIDAC insuln.pen 10/06/20 Insulin Lispro [Humalog KwikPen] See Protocol SC ACHS insuln.pen 10/06/20 Metronidazole [Flagyl] 500 mg PO TID #40 tab 10/06/20 Nutritional Supplement [Edy - ORANGE FLAVOR] 1 packet PO BIDCM packet 10/06/20 Oxycodone [Oxyir] 5 mg PO Q6H PRN PRN 2 Days #8 tab 10/06/20 Senna/Docusate Sodium [Senokot-S] 2 tab PO BID PRN PRN tab 10/06/20 Following Prescriptions Were Given to Patient: Ceftriaxone 2 gm IV Q24 #40 vial Prescription Printed Metronidazole [Flagyl] 500 mg PO TID #40 tab Prescription Printed Oxycodone [Oxyir] 5 mg PO Q6H PRN PRN 2 Days #8 tab PRN Reason: Pain Score 6-10 Prescription Printed Primary Care Physician: Care Physician,No Primary [Primary Care Provider] - Please Follow Up With: Deann Calloway DPM When: 2 weeks Please Follow Up With: Charles De Leon MD When: 2 weeks Disposition: [facility] facility Minutes spent on discharge:: 35 Patient Condition:: Fair Medical Necessity - Tobacco Use Smoking Status: Former smoker Meaningful Use Info Meaningful Use Diagnoses (Choose all that apply): None applicable Inpatient E&M: 93334 Disch Hosp
[2020-10-06 17:15] LABS: Bedside Glucose 186 mg/dL (70-110)
--- NOTE | 2020-10-06 17:25 | NURSING ---
spring coiling machine setter will come around 1830 for PICC line placement. Luiz aware.
[2020-10-06 19:48] VITALS: BP 118/74; PULSE 70; RESP 18; TEMP 37; O2SAT 98
== END 2020-10-06 21:20 | disposition skilled nursing facility (03) | DRG 710 ==
LOC: ED 04:15 → ICU 07:01 → MS3 10-05 06:46 → ICU 10-05 10:58
PROVIDERS: Internal Medicine; Internal Medicine Critical Care Medicine; Podiatrist; Admitting Provider Hospitalist; Emergency Provider Emergency Medicine
PROC: 0QBM0ZX Excision of Left Tarsal, Open Approach, Diagnostic (ICD-10-PCS; principal; 2020-10-04 08:00)
DX: A41.9 Sepsis, unspecified organism (principal); R65.20 Severe sepsis without septic shock; E11.69 Type 2 diabetes mellitus with other specified complication; M86.8X7 Other osteomyelitis, ankle and foot; E11.621 Type 2 diabetes mellitus with foot ulcer; L97.423 Non-pressure chronic ulcer of left heel and midfoot with necrosis of muscle; B95.1 Streptococcus, group B, as the cause of diseases classified elsewhere; B96.1 Klebsiella pneumoniae [K. pneumoniae] as the cause of diseases classified elsewhere; B95.61 Methicillin susceptible Staphylococcus aureus infection as the cause of diseases classified elsewhere; T79.7XXA Traumatic subcutaneous emphysema, initial encounter; S86.012A Strain of left Achilles tendon, initial encounter; X58.XXXA Exposure to other specified factors, initial encounter; E87.6 Hypokalemia; E11.65 Type 2 diabetes mellitus with hyperglycemia; Z20.828 Contact with and (suspected) exposure to other viral communicable diseases; J44.9 Chronic obstructive pulmonary disease, unspecified; M06.9 Rheumatoid arthritis, unspecified; G47.33 Obstructive sleep apnea (adult) (pediatric); Y93.9 Activity, unspecified; Y92.9 Unspecified place or not applicable; Y99.9 Unspecified external cause status; Z91.14 Patient's other noncompliance with medication regimen; Z91.19 Patient's noncompliance with other medical treatment and regimen; Z59.0 Homelessness; Z86.711 Personal history of pulmonary embolism; Z86.718 Personal history of other venous thrombosis and embolism; Z87.891 Personal history of nicotine dependence
CPT/HCPCS: 36415; 36569; 73630; 73650; 73718; 76000; 80048; 80053; 80202; 82962; 83036; 83605; 85025; 85652; 86140; 87015; 87040; 87070; 87075; 87077; 87102; 87116; 87149; 87176; 87186; 87205; 87206; 87426; 87640; 87641; 88304; 88305; 88311; 93005; 94762; 97110; 97116; 97162; 97165; 97530; 97802; 99285; J7030; J7040; J7050; J7120; A4216; J0696

== ENCOUNTER 2020-10-28 13:00 | Outpatient (RCR) | payer MEDICAID, SELFPAY ==
[2020-10-04 06:53] VITALS: BMI 25.0
[2020-10-14 11:08] VITALS: BP 115/55; PULSE 110; RESP 16; TEMP 35.8; BMI 25.4
--- NOTE | 2020-10-14 11:49 | PCM.WC.HP ---
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 He was recently hospitalized and underwent an urgent surgical debridement on 10-04-2020. He has since been residing at [facility] with wound VAC treatment. His infection has been responding well to the surgical debridement and IV antibiotics. He is scheduled to have a 2-week course of IV ceftriaxone and oral Flagyl under the management of infectious disease. He denies odor or redness. He relates minimal pain. He also has a ruptured Achilles tendon that was identified clinically and with MRI evaluation during his most recent hospital admission. Past Medical History Past Medical History: Chronic Problems (Last Updated 10/03/20 @ 09:[address] Deann Calloway DPM) Diabetes (Chronic) COPD (chronic obstructive pulmonary disease) (Chronic) Rheumatoid arthritis (Chronic) Surgical History: - - Pins in neck Allergies/Adverse Reactions: Allergies onion Allergy (Verified 10/14/20 11:27) Food Allergy SWELLING Home Medications: Ambulatory Orders Medication Instructions Recorded Acetaminophen [Tylenol Tablet] 650 mg PO Q6H PRN PRN tab 10/06/20 Ceftriaxone 2 gm IV Q24 #40 vial 10/06/20 Enoxaparin [Lovenox] 40 mg SC DAILY@0600 syringe 10/06/20 Insulin Glargine [Lantus SoloStar 20 units SC BREAKFAST pen 10/06/20 Pen] Insulin Lispro [Humalog KwikPen] 8 unit SC TIDAC insuln.pen 10/06/20 Insulin Lispro [Humalog KwikPen] See Protocol SC ACHS insuln.pen 10/06/20 Metronidazole [Flagyl] 500 mg PO TID #40 tab 10/06/20 Bisacodyl 10 mg RC DAILY PRN 10/14/20 Lactobacillus Acidophilus 1 ea PO DAILY 10/14/20 [Acidophilus] Magnesium Hydroxide [Milk Of 30 ml PO DAILY PRN PRN 10/14/20 Magnesia] Na Phos,M-B/Na Phos,Di-Ba [Fleet 1 bottle RECTAL DAILY PRN 10/14/20 Enema] Oxycodone [Oxyir] 5 mg PO Q6H PRN PRN 10/14/20 Sennosides 2 tab PO Q12H PRN 10/14/20 - Family History Paternal - - His father from an industrial accident. Maternal - - Denies knowledge of maternal medical history Smoking Status: Former smoker Review of Systems Constitutional: Denies: Chills, Fever Gastrointestinal: Denies: Nausea, Vomiting Musculoskeletal: Denies: Leg Pain Skin: Reports: Skin Changes, Wounds Neurological: Reports: Incoordination - Physical Exam Vital Signs Temp Pulse Resp BP 96.5 F L 110 H 16 115/55 L 10/14/20 11:08 10/14/20 11:08 10/14/20 11:08 10/14/20 11:08 General: Alert, Oriented x3, Cooperative, No apparent distress HEENT: Atraumatic Extremities: No cyanosis, Capillary Refill Less than 3 Seconds, No Calf Tenderness - Negative Deb and Jameson sign, Diminished Peripheral Pulses, Edema, - - Lack of foot plantarflexion with compression of the left calf consistent with an Achilles rupture and he also has a palpable Banner to the posterior Achilles proximal to the insertion point Skin: Ulcer/ Wound - Plantar heel with devitalized subcutaneous and fascial tissue and his status with surgical debridement site. There is no purulence on expression, odor, erythema, streaking, or laura necrosis noted. There is no adjacent bogginess or fluctuance., - - The adjacent skin is hairless and atrophic Wound Measurements and Assessment WC - Nurse 1 - General Ulcer Measurement Start: 10/14/20 11:08 Freq: Status: Active Protocol: Activity Type Activity Date Activity User E-Sign Co-Sign Detail Recorded Client Recorded Date Recorded By Document 10/14/20 11:08 [facility] [id number] 10/14/20 11:24 [facility] 10/14/20 11:08 Wound Center Nurse 1 [Ulcer Assessment] #1- L HEEL -Combined with other wound No -Current Size (cm) - Length 2.6 -Current Size (cm) - Width 3.2 -Current Size (cm) - Depth 1.4 -Total Square Cm 8.32 -Date of Last Picture (Recall this 10/14/20 field) -Photo Taken Yes -Epithelialization None Present -Tunneling Yes -Tunneling Position (O'clock) 11 -Tunneling Distance (cm) 2.2 -Undermining/Tunneling No -Circular Undermining No -Exudate Amt Medium -Exudate Type Serosanguineous -Wound Margin Distinct, Outline Attached -Granulation Amt Small (1-33%) -Granulation Quality [place] -Slough/Fibrin Yes -Necrosis Amt Large (67-100%) -Necrotic Tissue Type Adherent Slough -Texture (Teodora-wound Skin Appearance) Assessed, Scarring -Moisture (Teodora-wound Skin Appearance Assessed ) -Color (Teodora-wound Skin Appearance) Assessed -Temperature (Teodora-wound Skin No Abnormality Appearance) (Pt Warm) -Ulcer Cleansing SOAPY WATER -Foul Odor after Cleansing No [Edema Assessment] -Right Calf (cm) 35 -Right Ankle (cm) 22 -Left Calf (cm) 33 -Left Ankle (cm) 22 WC - Nurse 2 - General Ulcer CM Notes Start: 10/14/20 11:08 Freq: Status: Active Protocol: Activity Type Activity Date Activity User E-Sign Co-Sign Detail Recorded Client Recorded Date Recorded By Document 10/14/20 11:24 SUSANNE [id number] 10/14/20 11:48 SUSANNE 10/14/20 11:24 Wound Center Nurse 2 [Procedure/Treatment] #1- L HEEL -Time 11:38 -Correct Patient Yes -Correct Side, Site, Position Yes -Correct Procedure Yes -Procedure Performed Yes -Type of Procedure Debridement -Clinical Debridement Subcutaneous -Tissue Removed Subcutaneous -Post Debridement (cm) - Length 2.6 -Post Debridement (cm) - Width 3.2 -Post Debridement (cm) - Depth 1.4 -Total Square (Post) (cm) 8.32 -Area of Debridement (cm) - Length 2.6 -Area of Debridement (cm) - Width 3.2 -Total Square (Area) (cm) 8.32 -Tunneling No -Undermining/Tunneling No -Circular Undermining No -Wound/Ulcer Outcome Not Healed -Ulcer Cleansing Rinsed/ Irrigated with Saline -Foul Odor after Cleansing No -Bioengineered Tissue No -Bleeding Controlled with Pressure -Offloading No -Treatment Response Procedure Tolerated Well -Debridement - Subq, 1st 20sq cm Yes [See Physician Procedure note for Specifics] Pain Scale: 0-10 Numeric [Pain] -Is Patient Pain Free? Yes Musculoskeletal: Muscle Wasting, Tenderness Neurological: - - Lack of epicritic sensation light touch is consistent with neuropathy status Psych/Mental Status: Normal Affect, Appropriate Debridement Note Post-Debridement Measurements/Treatment WC - Nurse 2 - General Ulcer CM Notes Start: 10/14/20 11:08 Freq: Status: Active Protocol: Activity Type Activity Date Activity User E-Sign Co-Sign Detail Recorded Client Recorded Date Recorded By Document 10/14/20 11:24 SUSANNE [id number] 10/14/20 11:48 SUSANNE 10/14/20 11:24 Wound Center Nurse 2 #1- L HEEL -Time 11:38 -Correct Patient Yes -Correct Side, Site, Position Yes -Correct Procedure Yes -Procedure Performed Yes -Type of Procedure Debridement -Clinical Debridement Subcutaneous -Tissue Removed Subcutaneous -Post Debridement (cm) - Length 2.6 -Post Debridement (cm) - Width 3.2 -Post Debridement (cm) - Depth 1.4 -Total Square (Post) (cm) 8.32 -Area of Debridement (cm) - Length 2.6 -Area of Debridement (cm) - Width 3.2 -Total Square (Area) (cm) 8.32 -Tunneling No -Undermining/Tunneling No -Circular Undermining No -Wound/Ulcer Outcome Not Healed -Ulcer Cleansing Rinsed/ Irrigated with Saline -Foul Odor after Cleansing No -Bioengineered Tissue No -Bleeding Controlled with Pressure -Offloading No -Treatment Response Procedure Tolerated Well -Debridement - Subq, 1st 20sq cm Yes Pain Scale: 0-10 Numeric Is Patient Pain Free? Yes Wound debrided: plantar heel Laterality: Left Type of Debridement: Excisional debridement Anesthesia Used: 5% Lidocaine Gel Depth: in the subcutaneous layer, to muscle Percentage of wound debrided: 100 Instrument Used: #15 blade Tissue Removed: fibrous, devitalized subcutaneous and fascia, biofilm, slough Severity: Necrosis of Muscle Amount of bleeding with debridement: Mild Bleeding Controlled with: Pressure Patient tolerated procedure well Assessment/Plan Active Problems (Last Updated 10/03/20 @ 09:[address] Deann Calloway, DP) Rheumatoid arthritis (Chronic) 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 (Acute) Left foot pain (Acute) Assessment: Plantar left heel ulcer with devitalized fascia and subcutaneous tissue. Osteomyelitis treatment in process. Uncontrolled diabetes with neuropathy, hemoglobin A1c of 12.8%. Ruptured left Achilles tendon. Recent homeless status Plan: I reviewed and discussed his case. Excisional debridement was performed as noted in the clinical panel. To continue with wound VAC changes every 72 hours, 150 mmHg continuous. He understands after being educated that this is a negative pressure therapy. He was reassured local signs of infection have resolved. To complete his IV antibiotic course of 2 weeks of ceftriaxone IV and Flagyl p.o. per infectious disease. Follow-up in the outpatient setting as recommended. To offload been maintaining a strict nonweightbearing status with an assistive device. He will continue to work with therapy at [facility] as recommended. He will likely require long-term use of an ankle-foot orthotic due to his calcaneus style gait that is resulting from his ruptured Achilles tendon. Repair of this Achilles or arthrodesis of the ankle but only be considered if he was able to demonstrate appropriate postoperative care and remarkable improvement in lifestyle and hemoglobin A1c status. He understands he is at risk for limb loss. I recommend continuing with any nutritional supplementation available clinical retirement. Answered his questions. To return to clinic in 1 week.
[2020-10-21 10:40] VITALS: BP 111/68; PULSE 99; TEMP 36.2; BMI 25.4
--- NOTE | 2020-10-21 21:48 | PN.PCM_ITS ---
(1) 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 Status: Acute Code(s): L97.523 - Non-pressure 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 (2) Rheumatoid arthritis Status: Chronic Code(s): M06.9 - Rheumatoid arthritis, unspecified (3) Left foot pain Status: Acute Code(s): M79.672 - Pain in left foot (4) Osteomyelitis Status: Suspected Code(s): M86.9 - Osteomyelitis, unspecified Type of Wound Date of Service: 10/21/20 Chief Complaint: left heel ulcer History of Wound: This 60-year-old diabetic male with a hemoglobin A1c of 12.8% is following up at the wound healing center for left heel wound. He was recently hospitalized and underwent an urgent surgical debridement on 10-04-2020. He has since been residing at [facility] with wound VAC treatment. His infection has been responding well to the surgical debridement and IV antibiotics. He is scheduled to have a 2-week course of IV ceftriaxone and oral Flagyl under the management of infectious disease. He denies odor or redness. He relates minimal pain. He also has a ruptured Achilles tendon that was identified clinically and with MRI evaluation during his most recent hospital admission. Progress of Wound: Improving from an infection standpoint - Physical Exam Vital Signs Temp Pulse Resp BP 97.1 F L 99 16 111/68 10/21/20 10:40 10/21/20 10:40 10/14/20 11:08 10/21/20 10:40 General: Alert, Oriented x3, Cooperative, No apparent distress Extremities: No cyanosis, Capillary Refill Less than 3 Seconds, No Calf Tenderness, Diminished Peripheral Pulses, Edema, - - Calcaneus hindfoot position with ruptured Achilles tendon, left Skin: Ulcer/ Wound - No purulence, erythema, streaking, odor, or infection. There is no return of necrotic tissue. There is exposed fascia that is partially devitalized and positive probe to the plantar calcaneus. The suture was removed from the calcaneus biopsy site and there is a small fibrous and granular base [facility] Wound Measurements and Assessment WC - Nurse 1 - General Ulcer Measurement Start: 10/14/20 11:08 Freq: Status: Active Protocol: Activity Type Activity Date Activity User E-Sign Co-Sign Detail Recorded Client Recorded Date Recorded By Document 10/21/20 10:40 [email or web address] [id number] 10/21/20 10:51 KR 10/21/20 10:40 Wound Center Nurse 1 [Ulcer Assessment] #1- L HEEL -Current Size (cm) - Length 3.5 -Current Size (cm) - Width 3.4 -Current Size (cm) - Depth 1 -Total Square Cm 11.90 -Exudate Amt Medium -Exudate Type Serosanguineous -Wound Margin Distinct, Outline Attached -Granulation Amt Small (1-33%) -Granulation Quality [place] -Necrosis Amt Medium (34-66%) -Necrotic Tissue Type Adherent Slough -Texture (Teodora-wound Skin Appearance) No Abnormality, Assessed, Scarring -Color (Teodora-wound Skin Appearance) No Abnormality, Assessed -Temperature (Teodora-wound Skin No Abnormality Appearance) (Pt Warm) -Tenderness on Palpation (Teodora-wound No Skin Appearance) -Ulcer Cleansing soap and water -Anesthetic Used 4% Lidocaine Solution WC - Nurse 2 - General Ulcer CM Notes Start: 10/14/20 11:08 Freq: Status: Active Protocol: Activity Type Activity Date Activity User E-Sign Co-Sign Detail Recorded Client Recorded Date Recorded By Document 10/21/20 10:59 SUSANNE [id number] 10/21/20 11:05 SUSANNE 10/21/20 10:59 Wound Center Nurse 2 [Procedure/Treatment] -Time 10:59 -Correct Patient Yes -Correct Side, Site, Position Yes -Correct Procedure Yes -Procedure Performed Yes -Type of Procedure Debridement -Clinical Debridement Muscle / Fascia -Tissue Removed Fascia -Post Debridement (cm) - Length 3.5 -Post Debridement (cm) - Width 3.4 -Post Debridement (cm) - Depth 1 -Total Square (Post) (cm) 11.90 -Area of Debridement (cm) - Length 3.5 -Area of Debridement (cm) - Width 3.4 -Total Square (Area) (cm) 11.90 -Tunneling No -Undermining/Tunneling No -Circular Undermining No -Wound/Ulcer Outcome Not Healed -Ulcer Cleansing Rinsed/ Irrigated with Saline -Foul Odor after Cleansing No -Bioengineered Tissue No -Bleeding Controlled with Pressure -Offloading Yes -Type of Offloading Surgical Shoe -Treatment Response Procedure Tolerated Well -Debridement - Muscle / Fascia, 1st Yes 20sq cm [See Physician Procedure note for Specifics] Pain Scale: 0-10 Numeric [Pain] -Is Patient Pain Free? Yes Musculoskeletal: Muscle Wasting, - - No pain on palpation. Compartments remain soft to palpate Neurological: - - Lack of normal epicritic sensation Psych/Mental Status: Normal Affect, Appropriate Debridement Note Post-Debridement Measurements/Treatment WC - Nurse 2 - General Ulcer CM Notes Start: 10/14/20 11:08 Freq: Status: Active Protocol: Activity Type Activity Date Activity User E-Sign Co-Sign Detail Recorded Client Recorded Date Recorded By Document 10/14/20 11:24 [email or web address] [id number] 10/14/20 11:48 Document 10/21/20 10:59 [id number] 10/21/20 11:05 10/14/20 10/21/20 11:24 10:59 Wound Center Nurse 2 #1- L HEEL -Time 11:38 10:59 -Correct Patient Yes Yes -Correct Side, Site, Position Yes Yes -Correct Procedure Yes Yes -Procedure Performed Yes Yes -Type of Procedure Debridement Debridement -Clinical Debridement Muscle / Fascia Muscle / Fascia -Tissue Removed Muscle,Fascia Fascia -Post Debridement (cm) - Length 2.6 3.5 -Post Debridement (cm) - Width 3.2 3.4 -Post Debridement (cm) - Depth 1.4 1 -Total Square (Post) (cm) 8.32 11.90 -Area of Debridement (cm) - Length 2.6 3.5 -Area of Debridement (cm) - Width 3.2 3.4 -Total Square (Area) (cm) 8.32 11.90 -Tunneling No No -Undermining/Tunneling No No -Circular Undermining No No -Wound/Ulcer Outcome Not Healed Not Healed -Ulcer Cleansing Rinsed/ Rinsed/ Irrigated with Irrigated with Saline Saline -Foul Odor after Cleansing No No -Bioengineered Tissue No No -Bleeding Controlled with Pressure Pressure -Offloading No Yes -Type of Offloading Surgical Shoe -Treatment Response Procedure Procedure Tolerated Well Tolerated Well -Debridement - Muscle / Fascia, 1st Yes Yes 20sq cm Pain Scale: 0-10 Numeric Is Patient Pain Free? Yes Yes WC - Nurse 3 - General Ulcer D/C NN Start: 10/14/20 11:08 Freq: Status: Active Protocol: Activity Type Activity Date Activity User E-Sign Co-Sign Detail Recorded Client Recorded Date Recorded By Document 10/14/20 11:54 [id number] 10/14/20 11:56 KR 10/14/20 11:54 Wound Care Nurse 3 #1- L HEEL -Ulcer Cleansing Rinsed/ Irrigated with Saline -Primary Dressing Covered/Secured with Dry Gauze & Roll Gauze Pain Scale: 0-10 Numeric Is Patient Pain Free? Yes WC - Visit Discharge Discharge Condition Stable Ambulatory Status Wheelchair Wound debrided: plantar heel Laterality: Left Wound Grade/Stage: grade 3 Type of Debridement: Excisional debridement Anesthesia Used: 5% Lidocaine Gel Depth: in the subcutaneous layer Percentage of wound debrided: 100 Instrument Used: #15 blade, Forceps Tissue Removed: fibrous, devitalized subcutaneous and fascia, biofilm, slough Severity: Necrosis of Muscle Amount of bleeding with debridement: Mild Bleeding Controlled with: Pressure Patient tolerated procedure well Assessment/Plan Active Problems (Last Updated 10/03/20 @ 09:[address] Deann Calloway, [facility]) Rheumatoid arthritis (Chronic) 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 (Acute) Left foot pain (Acute) Assessment: Plantar left heel ulcer with devitalized fascia and subcutaneous tissue. Osteomyelitis treatment in process. Uncontrolled diabetes with neuropathy, hemoglobin A1c of 12.8%. Ruptured left Achilles tendon. Recent homeless status Plan: I reviewed and discussed his case. Excisional debridement was performed as noted in the clinical panel. To continue with wound VAC changes every 72 hours, 150 mmHg continuous. He understands after being educated that this is a negative pressure therapy. He was reassured local signs of infection have resolved. To complete his IV antibiotic course of 2 weeks of ceftriaxone IV and Flagyl p.o. per infectious disease. Follow-up in the outpatient setting as recommended. To offload been maintaining a strict nonweightbearing status with an assistive device. He will continue to work with therapy at [place] as recommended. He will likely require long-term use of an ankle-foot orthotic due to his calcaneus style gait that is resulting from his ruptured Achilles tendon. Repair of this Achilles or arthrodesis of the ankle but only be considered if he was able to demonstrate appropriate postoperative care and remarkable improvement in lifestyle and hemoglobin A1c status. He understands he is at risk for limb loss. I recommend continuing with any nutritional supplementation available clinical [facility]. Answered his questions. To return to clinic in 1 week.
[2020-10-28 13:04] VITALS: BP 111/66; PULSE 100; RESP 16; TEMP 36.6; BMI 25.4
--- NOTE | 2020-10-28 14:12 | PN.PCM_ITS ---
(1) 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 Status: Acute Code(s): L97.523 - Non-pressure 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 (2) Rheumatoid arthritis Status: Chronic Code(s): M06.9 - Rheumatoid arthritis, unspecified (3) Left foot pain Status: Acute Code(s): M79.672 - Pain in left foot (4) Osteomyelitis Status: Acute Code(s): M86.9 - Osteomyelitis, unspecified Type of Wound Date of Service: 10/28/20 Chief Complaint: left heel ulcer History of Wound: This 60-year-old diabetic male with a hemoglobin A1c of 12.8% is following up at the wound healing center for left heel wound. He was recently hospitalized and underwent an urgent surgical debridement on 10-04-2020. He has since been residing at [facility] with wound VAC treatment. His infection has been responding well to the surgical debridement and IV antibiotics. He is scheduled to have a 2-week course of IV ceftriaxone and oral Flagyl under the management of infectious disease. He denies odor or redness. He relates minimal pain. He also has a ruptured Achilles tendon that was identified clinically and with MRI evaluation during his most recent hospital admission. He missed his noninvasive vascular study test from this morning and they were able to reschedule him for this afternoon if he makes it on time. Progress of Wound: Improving from an infection standpoint - Physical Exam Vital Signs Temp Pulse Resp BP 97.9 F 100 16 111/66 10/28/20 13:04 10/28/20 13:04 10/28/20 13:04 10/28/20 13:04 General: Alert, Oriented x3, Cooperative, No apparent distress HEENT: Atraumatic Extremities: No cyanosis, Capillary Refill Less than 3 Seconds, No Calf Tenderness, Diminished Peripheral Pulses, Edema - Decreased Skin: Ulcer/ Wound - No purulence, erythema, string, odor, acute local infection. No necrosis. The ulcer is decreased in size and the distal incision and drainage portion has fully epithelialized and healed. There still exposed deep plantar fascia tissue and plantar calcaneus that is firm without discolorat ion Wound Measurements and Assessment WC - Nurse 1 - General Ulcer Measurement Start: 10/14/20 11:08 Freq: Status: Active Protocol: Activity Type Activity Date Activity User E-Sign Co-Sign Detail Recorded Client Recorded Date Recorded By Document 10/28/20 13:04 [facility] [id number] 10/28/20 13:18 [facility] 10/28/20 13:04 Wound Center Nurse 1 [Ulcer Assessment] #1- L HEEL -Combined with other wound No -Current Size (cm) - Length 2.3 -Current Size (cm) - Width 3.4 -Current Size (cm) - Depth 0.5 -Total Square Cm 7.82 -Photo Taken No -Epithelialization None Present -Tunneling No -Undermining/Tunneling Yes -Undermining/Tunneling Starts (O' 4 clock) -Undermining/Tunneling Ends (O'clock) 10 -Maximum Distance (cm) 0.6 -Circular Undermining No -Exudate Amt Small -Exudate Type Serosanguineous -Wound Margin Thickened & Rolled Under -Granulation Amt Medium (34-66%) -Granulation Quality Red -Slough/Fibrin Yes -Necrosis Amt Medium (34-66%) -Necrotic Tissue Type Adherent Slough -Texture (Teodora-wound Skin Appearance) Assessed, Localized Edema ,Scarring -Moisture (Teodora-wound Skin Appearance Assessed, ) Maceration -Color (Teodora-wound Skin Appearance) Assessed, Erythema,Palor -Temperature (Teodora-wound Skin No Abnormality Appearance) (Pt Warm) -Tenderness on Palpation (Teodora-wound Yes Skin Appearance) -Ulcer Cleansing SOAPY WATER -Foul Odor after Cleansing No -Anesthetic Used 4% Lidocaine Solution WC - Nurse 2 - General Ulcer CM Notes Start: 10/14/20 11:08 Freq: Status: Active Protocol: Activity Type Activity Date Activity User E-Sign Co-Sign Detail Recorded Client Recorded Date Recorded By Document 10/28/20 13:55 [id number] 10/28/20 13:58 10/28/20 13:55 Wound Center Nurse 2 [Procedure/Treatment] -Time 13:56 -Correct Patient Yes -Correct Side, Site, Position Yes -Correct Procedure Yes -Procedure Performed Yes -Type of Procedure Debridement -Clinical Debridement Subcutaneous -Tissue Removed Subcutaneous -Post Debridement (cm) - Length 2.4 -Post Debridement (cm) - Width 3.5 -Post Debridement (cm) - Depth 0.5 -Total Square (Post) (cm) 8.40 -Area of Debridement (cm) - Length 2.4 -Area of Debridement (cm) - Width 3.5 -Total Square (Area) (cm) 8.40 -Circular Undermining No -Wound/Ulcer Outcome Not Healed -Ulcer Cleansing Rinsed/ Irrigated with Saline -Foul Odor after Cleansing No -Bioengineered Tissue No -Bleeding Controlled with Pressure -Offloading No -Treatment Response Procedure Tolerated Well -Debridement - Subq, 1st 20sq cm Yes [See Physician Procedure note for Specifics] Pain Scale: 0-10 Numeric [Pain] -Is Patient Pain Free? Yes - Nurse 3 - General Ulcer D/C NN Start: 10/14/20 11:08 Freq: Status: Active Protocol: Activity Type Activity Date Activity User E-Sign Co-Sign Detail Recorded Client Recorded Date Recorded By Document 10/28/20 14:09 [facility] [id number] 10/28/20 14:10 [facility] 10/28/20 14:09 Wound Care Nurse 3 [Wound Dressing] #1- L HEEL -Ulcer Cleansing Rinsed/ Irrigated with Saline -Foul Odor after Cleansing No -Primary Dressing Applied Other -Other Dressing MOIST TO DRY DRSG -Primary Dressing Covered/Secured Dry Gauze & with Roll Gauze, Secured with Tape,Other -Other Covering HEEL HAT [Post Procedure Tolerated] -Treatment Response Procedure Tolerated Well Pain Scale: 0-10 Numeric [Pain] -Is Patient Pain Free? Yes - Visit Discharge [Visit Discharge Information] -Discharge Condition Stable -Ambulatory Status Wheelchair [Facility Notification] -Facility Type [facility] Musculoskeletal: No Tenderness to Palpation of Joints or Extremities, Muscle Wasting, - - Calcaneus gait style consistent with ruptured Achilles tendon, left Neurological: - - Lack of normal epicritic sensation light touch is consistent with neuropathy Psych/Mental Status: Normal Affect, Appropriate Debridement Note Post-Debridement Measurements/Treatment - Nurse 2 - General Ulcer CM Notes Start: 10/14/20 11:08 Freq: Status: Active Protocol: Activity Type Activity Date Activity User E-Sign Co-Sign Detail Recorded Client Recorded Date Recorded By Document 10/14/20 11:24 [id number] 10/14/20 11:48 Document 10/21/20 10:59 [id number] 10/21/20 11:05 Document 10/28/20 13:55 [id number] 10/28/20 13:58 12/10/21/20 10/28/20 11:24 10:59 13:55 Wound Center Nurse 2 #1- L HEEL -Time 11:38 10:59 13:56 -Correct Patient Yes Yes Yes -Correct Side, Site, Position Yes Yes Yes -Correct Procedure Yes Yes Yes -Procedure Performed Yes Yes Yes -Type of Procedure Debridement Debridement Debridement -Clinical Debridement Muscle / Fascia Muscle / Fascia Subcutaneous -Tissue Removed Muscle,Fascia Fascia Subcutaneous -Post Debridement (cm) - Length 2.6 3.5 2.4 -Post Debridement (cm) - Width 3.2 3.4 3.5 -Post Debridement (cm) - Depth 1.4 1 0.5 -Total Square (Post) (cm) 8.32 11.90 8.40 -Area of Debridement (cm) - Length 2.6 3.5 2.4 -Area of Debridement (cm) - Width 3.2 3.4 3.5 -Total Square (Area) (cm) 8.32 11.90 8.40 -Tunneling No No -Undermining/Tunneling No No -Circular Undermining No No No -Wound/Ulcer Outcome Not Healed Not Healed Not Healed -Ulcer Cleansing Rinsed/ Rinsed/ Rinsed/ Irrigated with Irrigated with Irrigated with Saline Saline Saline -Foul Odor after Cleansing No No No -Bioengineered Tissue No No No -Bleeding Controlled with Pressure Pressure Pressure -Offloading No Yes No -Type of Offloading Surgical Shoe -Treatment Response Procedure Procedure Procedure Tolerated Well Tolerated Well Tolerated Well -Debridement - Subq, 1st 20sq cm Yes -Debridement - Muscle / Fascia, 1st Yes Yes 20sq cm Pain Scale: 0-10 Numeric Is Patient Pain Free? Yes Yes Yes WC - Nurse 3 - General Ulcer D/C NN Start: 10/14/20 11:08 Freq: Status: Active Protocol: Activity Type Activity Date Activity User E-Sign Co-Sign Detail Recorded Client Recorded Date Recorded By Document 10/14/20 11:54 KR [id number] 10/14/20 11:56 KR Document 10/28/20 14:09 [facility] [id number] 10/28/20 14:10 [facility] 10/14/20 10/28/20 11:54 14:09 Wound Care Nurse 3 #1- L HEEL -Ulcer Cleansing Rinsed/ Rinsed/ Irrigated with Irrigated with Saline Saline -Foul Odor after Cleansing No -Primary Dressing Applied Other -Other Dressing MOIST TO DRY DRSG -Primary Dressing Covered/Secured with Dry Gauze & Dry Gauze & Roll Gauze Roll Gauze, Secured with Tape,Other -Other Covering HEEL HAT Treatment Response Procedure Tolerated Well Pain Scale: 0-10 Numeric Is Patient Pain Free? Yes Yes WC - Visit Discharge Discharge Condition Stable Stable Ambulatory Status Wheelchair Wheelchair Facility Type [facility] Wound debrided: plantar heel Laterality: Left Wound Grade/Stage: grade 3 Type of Debridement: Excisional debridement Anesthesia Used: 5% Lidocaine Gel Depth: in the subcutaneous layer Percentage of wound debrided: 100 Instrument Used: #15 blade Tissue Removed: fibrous, devitalized subcutaneous, biofilm, slough Severity: Fat Layer Exposed Amount of bleeding with debridement: Mild Bleeding Controlled with: Pressure Patient tolerated procedure well Assessment/Plan Active Problems (Last Updated 10/03/20 @ 09:[address] Deann Calloway, [facility] Rheumatoid arthritis (Chronic) 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 (Acute) Left foot pain (Acute) Osteomyelitis (Acute) Assessment: Plantar left heel ulcer with devitalized fascia and subcutaneous tissue. Osteomyelitis treatment in process. Uncontrolled diabetes with neuropathy, hemoglobin A1c of 12.8%. Ruptured left Achilles tendon. Recent homeless status Plan: I reviewed and discussed his case. Excisional debridement was performed as noted in the clinical panel. To continue with wound VAC changes every [address], 150 mmHg continuous. He understands after being educated that this is a negative pressure therapy. He was reassured local signs of infection have resolved. To complete his IV antibiotic course of 2 weeks of ceftriaxone IV and Flagyl p.o. per infectious disease. Follow-up in the outpatient setting as recommended. To offload been maintaining a strict nonweightbearing status with an assistive device. He will continue to work with therapy at [place] as recommended. He will likely require long-term use of an ankle-foot orthotic due to his calcaneus style gait that is resulting from his ruptured Achilles tendon. Repair of this Achilles or arthrodesis of the ankle but only be considered if he was able to demonstrate appropriate postoperative care and remarkable improvement in lifestyle and hemoglobin A1c status. He understands he is at risk for limb loss. I recommend continuing with any nutritional supplementation available clinical residential. His noninvasive vascular studies were reviewed with triphasic PT and DP pulses bilateral. His right NADAI is 1.12 and left 1.16. His toe brachial index is 1.12 on the right and 1.34 on the left. There is no significant segmental pressure drop and therefore no arterial brain lesion is not suspected. I answered his questions. To return to clinic in 1 week.
== END 2020-10-29 23:59 ==
LOC: WC 13:00
PROVIDERS: Visit Provider Podiatrist
DX: E11.621 Type 2 diabetes mellitus with foot ulcer (principal); L97.423 Non-pressure chronic ulcer of left heel and midfoot with necrosis of muscle; E11.69 Type 2 diabetes mellitus with other specified complication; M86.9 Osteomyelitis, unspecified; E11.65 Type 2 diabetes mellitus with hyperglycemia; J44.9 Chronic obstructive pulmonary disease, unspecified; M06.9 Rheumatoid arthritis, unspecified; S86.012A Strain of left Achilles tendon, initial encounter; X58.XXXA Exposure to other specified factors, initial encounter; Y93.9 Activity, unspecified; Y92.9 Unspecified place or not applicable; Y99.9 Unspecified external cause status; Z79.4 Long term (current) use of insulin; Z79.01 Long term (current) use of anticoagulants; Z79.899 Other long term (current) drug therapy; Z87.891 Personal history of nicotine dependence
CPT/HCPCS: 11042; 11043; 93923; 97605; 99213; G0463

== ENCOUNTER 2020-11-25 13:45 | Outpatient (RCR) | payer MEDICAID, SELFPAY ==
[2020-10-30 00:39] VITALS: BP 111/66; PULSE 100; RESP 16; TEMP 36.6
[2020-11-04 13:44] VITALS: BP 131/74; PULSE 91; RESP 16; TEMP 36.7; BMI 25.4
--- NOTE | 2020-11-04 15:18 | PCM.WC.PN ---
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 Code(s): L97.523 - Non-pressure 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 (3) Osteomyelitis Status: Chronic Code(s): M86.9 - Osteomyelitis, unspecified (4) Rheumatoid arthritis Status: Chronic Code(s): M06.9 - Rheumatoid arthritis, unspecified (5) Type 2 diabetes mellitus with diabetic polyneuropathy Status: Chronic Code(s): E11.42 - Type 2 diabetes mellitus with diabetic polyneuropathy (6) Calcaneal gait Status: Chronic Code(s): R26.89 - Other abnormalities of gait and mobility (7) Walking difficulty due to ankle and foot Status: Chronic Code(s): R26.2 - Difficulty in walking, not elsewhere classified Type of Wound Date of Service: 11/04/20 Chief Complaint: left heel ulcer History of Wound: This 60-year-old diabetic male with a hemoglobin A1c of 12.8% is following up at the wound healing center for left heel wound. He was recently hospitalized and underwent an urgent surgical debridement on 10-04-2020. He has since been residing at [facility] with wound VAC treatment. His infection has been responding well to the surgical debridement and IV antibiotics. He is scheduled to have a 2-week course of IV ceftriaxone and oral Flagyl under the management of infectious disease. He denies odor or redness. He relates minimal pain. He also has a ruptured Achilles tendon that was identified clinically and with MRI evaluation during his most recent hospital admission. He completed noninvasive vascular study and would like to go over the results. He continues work with physical therapy at his extended care facility and the case was reviewed with his physical therapist earlier this week and additionally after clinic. He is having difficulty keeping pressure off of his heel. He relates that he is planning on signing out of the extended care facility AGAINST MEDICAL ADVICE once his IV antibiotics are completed. The patient is well as his extended care facility staff are concerned about his transition out because he was previously living in his truck. The patient relates he may be able to stay with his friend at her home. He also has ongoing neck pain and relates he has significant degenerative disease with prior surgical intervention. He asked for a gis specialist or surgical referral. Progress of Wound: Improving - Physical Exam Vital Signs Temp Pulse Resp BP 98.1 F 91 16 131/74 H 11/04/20 13:44 11/04/20 13:44 11/04/20 13:44 11/04/20 13:44 General: Alert, Oriented x3, Cooperative, No apparent distress HEENT: Atraumatic Extremities: No cyanosis, Capillary Refill Less than 3 Seconds, No Calf Tenderness, Edema - Decreased Skin: Ulcer/ Wound - No purulence, erythema, streaking, odor, acute infection. There is still exposed plantar fascial band and bone to the plantar ulcer that has significant reduction in size and peripheral epithelialization. There is improvement in granulation tissue as well. Wound Measurements and Assessment WC - Nurse 1 - General Ulcer Measurement Start: 11/04/20 13:44 Freq: Status: Active Protocol: Activity Type Activity Date Activity User E-Sign Co-Sign Detail Recorded Client Recorded Date Recorded By Document 11/04/20 13:44 [facility] [id number] 11/04/20 13:54 [facility] 11/04/20 13:44 Wound Center Nurse 1 [Ulcer Assessment] #1- L HEEL -Combined with other wound No -Current Size (cm) - Length 2.1 -Current Size (cm) - Width 3.4 -Current Size (cm) - Depth 0.4 -Total Square Cm 7.14 -Photo Taken No -Epithelialization None Present -Tunneling No -Undermining/Tunneling No -Circular Undermining No -Exudate Amt Large -Exudate Type Serosanguineous -Wound Margin Thickened & Rolled Under -Granulation Amt Small (1-33%) -Granulation Quality Pale,Red -Slough/Fibrin Yes -Necrosis Amt Large (67-100%) -Necrotic Tissue Type Adherent Slough -Texture (Teodora-wound Skin Appearance) Assessed, Localized Edema ,Scarring -Moisture (Teodora-wound Skin Appearance Assessed, ) Maceration,Dry/ Scaly -Color (Teodora-wound Skin Appearance) Assessed,Palor -Temperature (Teodora-wound Skin No Abnormality Appearance) (Pt Warm) -Tenderness on Palpation (Teodora-wound No Skin Appearance) -Ulcer Cleansing soapy water -Foul Odor after Cleansing No -Anesthetic Used 4% Lidocaine Solution - Nurse 3 - General Ulcer D/C NN Start: 11/04/20 13:44 Freq: Status: Active Protocol: Activity Type Activity Date Activity User E-Sign Co-Sign Detail Recorded Client Recorded Date Recorded By Document 11/04/20 14:42 [facility] [id number] 11/04/20 14:43 [facility] 11/04/20 14:42 Wound Care Nurse 3 [Wound Dressing] -Ulcer Cleansing Rinsed/ Irrigated with Saline -Foul Odor after Cleansing No -Primary Dressing Applied Promogran Radha Matter, Other -Other Dressing tcc undercast per myles walsh rn -Primary Dressing Covered/Secured Dry Gauze, with Secured with Tape,Other -Other Covering foam -Promogran Radha Matter 1 [Post Procedure Tolerated] -Treatment Response Procedure Tolerated Well Pain Scale: 0-10 Numeric [Pain] -Is Patient Pain Free? Yes - Visit Discharge [Visit Discharge Information] -Discharge Condition Stable -Ambulatory Status Wheelchair [Facility Notification] -Facility Type Care Home Care Facility Musculoskeletal: No Tenderness to Palpation of Joints or Extremities, Muscle Wasting, - - Compartments soft. No bogginess or fluctuance on palpation. Calcaneus gait is noted consistent with a ruptured Achilles tendon Neurological: - - Lack of normal epicritic sensation Psych/Mental Status: Normal Affect, Appropriate Debridement Note Post-Debridement Measurements/Treatment - Nurse 3 - General Ulcer D/C NN Start: 11/04/20 13:44 Freq: Status: Active Protocol: Activity Type Activity Date Activity User E-Sign Co-Sign Detail Recorded Client Recorded Date Recorded By Document 11/04/20 14:42 [facility] [id number] 11/04/20 14:43 [facility] 11/04/20 14:42 Wound Care Nurse 3 #1- L HEEL -Ulcer Cleansing Rinsed/ Irrigated with Saline -Foul Odor after Cleansing No -Primary Dressing Applied Promogran Radha Matter, Other -Other Dressing tcc undercast per myles walsh rn -Primary Dressing Covered/Secured with Dry Gauze, Secured with Tape,Other -Other Covering foam -Promogran Radha Matter 1 Treatment Response Procedure Tolerated Well Pain Scale: 0-10 Numeric Is Patient Pain Free? Yes - Visit Discharge Discharge Condition Stable Ambulatory Status Wheelchair Facility Type Maintenance Dispatcher Care Facility Wound debrided: plantar heel Laterality: Left Wound Grade/Stage: grade 3 Type of Debridement: Excisional debridement Anesthesia Used: 5% Lidocaine Gel Depth: in the subcutaneous layer Percentage of wound debrided: 100 Instrument Used: #15 blade Tissue Removed: fibrous, devitalized subcutaneous, biofilm, slough Severity: Fat Layer Exposed Amount of bleeding with debridement: Mild Bleeding Controlled with: Pressure Patient tolerated procedure well Assessment/Plan Active Problems (Last Updated 10/03/20 @ 09:[address] 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 Osteomyelitis treatment in process. Uncontrolled diabetes with neuropathy, hemoglobin A1c of 12.8%. Ruptured left Achilles tendon with calcaneus gait. Recent homeless status. ambulation difficulty. overt peripheral vascular disease ruled out Plan: I reviewed and discussed his case. Excisional debridement was performed as noted in the clinical panel. Radha (collagen product) was applied. I also recommended the application of a total contact cast to reduce pressure on his ulcer site. He is amendable to proceed today and the wound VAC was therefore discontinued. This was applied according standard protocol in a neutral position and well-padded manner. He tolerated this well. He was advised to keep this clean, dry, and intact. Is noted he is still fairly active even with his immobilization status and continues to work with physical therapy. This case was discussed at length with physical therapist on 2 occasions in regards to this encounter. With the cast on it is okay if he touches down for transfers and for short walking durations. He understands he needs to keep this dry. He will monitor for signs of blood clot. It is noted he does have a history of pulmonary embolism and he does not demonstrate symptoms of this at this time. I recommend application of advanced wound healing product such as epicord or epifix. The indications and benefits, application process, and anticipated healing time and management were discussed. Prior authorization will be considered prior to proceeding. It is noted he has undergone over 1 month duration of conventional and advanced wound care. He was reassured local signs of infection have resolved. To complete his IV antibiotic course of 2 weeks of ceftriaxone IV and Flagyl p.o. per infectious disease. Follow-up with infectious disease specialist, Dr. De Leon. The case was discussed today and it appears he is improving nicely. He will likely require long-term use of an ankle-foot orthotic due to his calcaneus style gait that is resulting from his ruptured Achilles tendon. Repair of this Achilles or arthrodesis of the ankle but only be considered if he was able to demonstrate appropriate postoperative care and remarkable improvement in lifestyle and hemoglobin A1c status. Consideration may also be given to percutaneous attempted Achilles reapproximation with a PARS type system. He understands he is at risk for limb loss. I recommend continuing with any nutritional supplementation available clinical retirement. His noninvasive vascular studies were reviewed with triphasic PT and DP pulses bilateral. His right NADIA is 1.12 and left 1.16. His toe brachial index is 1.12 on the right and 1.34 on the left. There is no significant segmental pressure drop and therefore no arterial occlusive lesion is suspected. I answered his questions. To return to clinic in 1 week. It is noted he plans to leave his [facility] facility after his IV antibiotics are completed which is AGAINST MEDICAL ADVICE. He relates he will likely stay with one of his friends and he is continuing to get this set up. The problems addressed require a moderate decision making level which includes one or more chronic illnesses (w/ exacerbation, progression, or side effects), two or more stable chronic illnesses, one undiagnosed new problem w/ uncertain prognosis, one acute illness with systemic symptoms, or one acute complicated injury. The medical decision making level is moderate. There is noted moderate risk of morbidity after considering this treatment plan and diagnostic data. Considerations were given to prescription management, decisions regarding surgical options, or social determinants of health. Note: [employer] speech recognition c consultant software was used to create portions of this document. Sound-alike and misspelled words, as well as other c consultant errors may be contained in the documentation.
--- NOTE | 2020-11-04 22:34 | PN.ID_ITS ---
Subjective: Feeling better, at [facility], no issues with picc, no fever, no n/v/d. Foot improving. - Physical Exam Vitals/I&O's: Vital Signs Temp Pulse Resp BP 98.1 F 91 16 131/74 H 11/04/20 13:44 11/04/20 13:44 11/04/20 13:44 11/04/20 13:44 Oxygen Delivery Method Room Air Weight: 80.286 kg Body Mass Index (BMI) 25.4 Finger Stick Blood Glucose 167 General: Alert, Cooperative, No apparent distress Lungs: Clear to auscultation, Normal air movement Cardiovascular: Regular rate, Regular Rhythm Abdomen: Soft, Non Tender, Non-Distended Skin: Ulcer/ Wound - L heel wound appears clean Medical Necessity - Tobacco Use Smoking Status: Former smoker Route of nutrition/ use of supplements: [] Nutritional Intake: [] IV Site: [] Wilkinson Catheter: [] - Assessment/Plan Antibiotics: [] Assessment/Plan: [] strep and klebs bacteremia due to L heel osteo with uncontrolled DM - surg cx with GBS, MSSA, klebs, GPR. PCR showing mSSA. A1C 12.8. OR 12/[address] Calloway for I&D. On iv ceftriaxone for 6 weeks. Reviewed labs. Foot improving. Abx to stop 11/15/20. Reviewed med list from [facility]. Picc removal once abx complete. Will follow as needed, d/w Dr. Calloway
[2020-11-11 08:54] VITALS: BP 110/61; PULSE 103; RESP 16; TEMP 36.9; BMI 25.4
--- NOTE | 2020-11-11 11:34 | PN.PCM_ITS ---
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 Code(s): L97.523 - Non-pressure 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 (2) Osteomyelitis Status: Chronic Code(s): M86.9 - Osteomyelitis, unspecified (3) Rheumatoid arthritis Status: Chronic Code(s): M06.9 - Rheumatoid arthritis, unspecified (4) Type 2 diabetes mellitus with diabetic polyneuropathy Status: Chronic Code(s): E11.42 - Type 2 diabetes mellitus with diabetic polyneuropathy (5) Calcaneal gait Status: Chronic Code(s): R26.89 - Other abnormalities of gait and mobility (6) Walking difficulty due to ankle and foot Status: Chronic Code(s): R26.2 - Difficulty in walking, not elsewhere classified (7) Achilles rupture, left Status: Chronic Qualifiers: Encounter type: sequela Qualified Code(s): S86.012S - Strain of left Achilles tendon, sequela Code(s): S86.012A - Strain of left Achilles tendon, initial encounter Type of Wound Date of Service: 11/11/20 Chief Complaint: left heel ulcer History of Wound: This 60-year-old diabetic male with a hemoglobin A1c of 12.8% is following up at the wound healing center for left heel wound. He was recently hospitalized and underwent an urgent surgical debridement on 10-04-2020. He has since been residing at [facility] with wound VAC treatment. His infection has been responding well to the surgical debridement and IV antibiotics. He is scheduled to have a 2-week course of IV ceftriaxone and oral Flagyl under the management of infectious disease. He denies odor or redness. He relates minimal pain. He also has a ruptured Achilles tendon that was identified clinically and with MRI evaluation during his most recent hospital admission. He completed noninvasive vascular study and would like to go over the results. He continues work with physical therapy at his extended care facility and the case was reviewed with his physical therapist earlier this week and additionally after clinic. He is having difficulty keeping pressure off of his heel. He relates that he is planning on signing out of the extended care facility AGAINST MEDICAL ADVICE once his IV antibiotics are completed. He relates he bought a trailer and will be staying in this mobile home. He plans to move to [place] after his ulcer is healed. Progress of Wound: Improving - Physical Exam Vital Signs Temp Pulse Resp BP 98.5 F 103 H 16 110/61 11/11/20 08:54 11/11/20 08:54 11/11/20 08:54 11/11/20 08:54 General: Alert, Oriented x3, Cooperative, No apparent distress HEENT: Atraumatic Extremities: No cyanosis, No edema, No Calf Tenderness, Diminished Peripheral Pulses, Edema - Decreased Skin: Ulcer/ Wound - No purulence, erythema, streaking, odor, infection. Exposed deep plantar fascial tissue and bone is still noted. Ulcer size reduction is noted. Adjacent skin is hairless and atrophic Wound Measurements and Assessment - Nurse 1 - General Ulcer Measurement Start: 11/04/20 13:44 Freq: Status: Active Protocol: Activity Type Activity Date Activity User E-Sign Co-Sign Detail Recorded Client Recorded Date Recorded By Document 11/11/20 08:54 MD [id number] 11/11/20 09:02 MD 11/11/20 08:54 Wound Center Nurse 1 [Ulcer Assessment] #1- L HEEL -Combined with other wound No -Current Size (cm) - Length 1.8 -Current Size (cm) - Width 3.2 -Current Size (cm) - Depth 1.0 -Total Square Cm 5.76 -Exudate Amt Medium -Exudate Type Serosanguineous -Wound Margin Thickened & Rolled Under -Granulation Amt Large (67-100%) -Granulation Quality Pale,[place] -Slough/Fibrin Yes -Necrosis Amt Small (1-33%) -Texture (Teodora-wound Skin Appearance) Assessed -Moisture (Teodora-wound Skin Appearance Assessed, ) Maceration -Color (Teodora-wound Skin Appearance) Assessed -Temperature (Teodora-wound Skin No Abnormality Appearance) (Pt Warm) -Tenderness on Palpation (Teodora-wound No Skin Appearance) -Ulcer Cleansing Rinsed/ Irrigated with Saline -Foul Odor after Cleansing No -Anesthetic Used 4% Lidocaine Solution [Edema Assessment] -Lower Limb Edema Present NA - Nurse 2 - General Ulcer CM Notes Start: 11/04/20 13:44 Freq: Status: Active Protocol: Activity Type Activity Date Activity User E-Sign Co-Sign Detail Recorded Client Recorded Date Recorded By Document 11/11/20 09:05 [id number] 11/11/20 09:14 SUSANNE 01/13/21 09:05 Wound Center Nurse 2 [Procedure/Treatment] #1- L HEEL -Time 09:06 -Correct Patient Yes -Correct Side, Site, Position Yes -Correct Procedure Yes -Procedure Performed Yes -Type of Procedure Debridement -Clinical Debridement Subcutaneous -Tissue Removed Subcutaneous -Post Debridement (cm) - Length 1.8 -Post Debridement (cm) - Width 3.5 -Post Debridement (cm) - Depth 1 -Total Square (Post) (cm) 6.30 -Area of Debridement (cm) - Length 1.8 -Area of Debridement (cm) - Width 3.5 -Total Square (Area) (cm) 6.30 -Tunneling No -Undermining/Tunneling No -Circular Undermining No -Wound/Ulcer Outcome Not Healed -Ulcer Cleansing Wound Cleanser -Foul Odor after Cleansing No -Bioengineered Tissue No -Bleeding Controlled with Pressure -Offloading Yes -Type of Offloading Total Contact Cast (TCC) - Left ($) -Treatment Response Procedure Tolerated Well -Debridement - Subq, 1st 20sq cm Yes [See Physician Procedure note for Specifics] Pain Scale: 0-10 Numeric [Pain] -Is Patient Pain Free? Yes - Nurse 3 - General Ulcer D/C NN Start: 11/04/20 13:44 Freq: Status: Active Protocol: Activity Type Activity Date Activity User E-Sign Co-Sign Detail Recorded Client Recorded Date Recorded By Document 11/11/20 09:22 SUSANNE [id number] 11/11/20 09:23 SUSANNE 11/11/20 09:22 Wound Care Nurse 3 [Wound Dressing] #1- L HEEL -Ulcer Cleansing Rinsed/ Irrigated with Saline -Foul Odor after Cleansing No -Primary Dressing Applied Promogran Radha Matter -Primary Dressing Covered/Secured Dry Gauze with -Promogran Radha Matter 1 [Post Procedure Tolerated] -Treatment Response Procedure Tolerated Well Pain Scale: 0-10 Numeric [Pain] -Is Patient Pain Free? Yes - Visit Discharge [Visit Discharge Information] -Discharge Condition Stable -Ambulatory Status Wheelchair -Transportation Private Auto -Medication Reconcilliation completed Yes & provided to patient/care provider -Clinical Summary of Care Provided Yes Musculoskeletal: No Tenderness to Palpation of Joints or Extremities, Muscle Wasting, - - Calcaneus gait consistent with ruptured Achilles tendon Neurological: - - Lack of normal epicritic sensation is consistent with neuropathy status Psych/Mental Status: Normal Affect, Appropriate Debridement Note Post-Debridement Measurements/Treatment WC - Nurse 2 - General Ulcer CM Notes Start: 11/04/20 13:44 Freq: Status: Active Protocol: Activity Type Activity Date Activity User E-Sign Co-Sign Detail Recorded Client Recorded Date Recorded By Document 11/04/20 16:30 PL [id number] 11/04/20 16:31 PL Document 11/11/20 09:05 [id number] 11/11/20 09:14 11/04/20 11/11/20 16:30 09:05 Wound Center Nurse 2 #1- L HEEL -Time 14:25 09:06 -Correct Patient Yes Yes -Correct Side, Site, Position Yes Yes -Correct Procedure Yes Yes -Procedure Performed Yes Yes -Type of Procedure Debridement Debridement -Clinical Debridement Subcutaneous Subcutaneous -Tissue Removed Subcutaneous Subcutaneous -Post Debridement (cm) - Length 2.1 1.8 -Post Debridement (cm) - Width 3.4 3.5 -Post Debridement (cm) - Depth 0.4 1 -Total Square (Post) (cm) 7.14 6.30 -Area of Debridement (cm) - Length 2.1 1.8 -Area of Debridement (cm) - Width 3.4 3.5 -Total Square (Area) (cm) 7.14 6.30 -Tunneling No No -Undermining/Tunneling No No -Circular Undermining No No -Wound/Ulcer Outcome Not Healed Not Healed -Ulcer Cleansing Rinsed/ Wound Cleanser Irrigated with Saline -Foul Odor after Cleansing No No -Bioengineered Tissue No No -Bleeding Controlled with Pressure -Offloading Yes -Type of Offloading Total Contact Cast (TCC) - Left ($) -Treatment Response Procedure Tolerated Well -Debridement - Subq, 1st 20sq cm Yes Yes Pain Scale: 0-10 Numeric Is Patient Pain Free? Yes Yes - Nurse 3 - General Ulcer D/C NN Start: 11/04/20 13:44 Freq: Status: Active Protocol: Activity Type Activity Date Activity User E-Sign Co-Sign Detail Recorded Client Recorded Date Recorded By Document 11/04/20 14:42 [facility] [id number] 11/04/20 14:43 [facility] Document 11/11/20 09:22 [id number] 11/11/20 09:23 11/04/20 11/11/20 14:42 09:22 Wound Care Nurse 3 #1- L HEEL -Ulcer Cleansing Rinsed/ Rinsed/ Irrigated with Irrigated with Saline Saline -Foul Odor after Cleansing No No -Primary Dressing Applied Promogran Promogran Radha Matter, Radha Matter Other -Other Dressing tcc undercast per myles walsh rn -Primary Dressing Covered/Secured with Dry Gauze, Dry Gauze Secured with Tape,Other -Other Covering foam -Promogran Radha Matter 1 1 Treatment Response Procedure Procedure Tolerated Well Tolerated Well Pain Scale: 0-10 Numeric Is Patient Pain Free? Yes Yes WC - Visit Discharge Discharge Condition Stable Stable Ambulatory Status Wheelchair Wheelchair Transportation Private Auto Medication Reconcilliation completed & Yes provided to patient/care provider Clinical Summary of Care Provided Yes Facility Type Nursing Home Care Facility Wound debrided: plantar heel Laterality: Left Wound Grade/Stage: grade 3 Type of Debridement: Excisional debridement Anesthesia Used: 5% Lidocaine Gel Depth: in the subcutaneous layer Percentage of wound debrided: 100 Instrument Used: #15 blade Tissue Removed: fibrous, devitalized subcutaneous, biofilm, slough Severity: Fat Layer Exposed Amount of bleeding with debridement: Mild Bleeding Controlled with: Pressure Patient tolerated procedure well Assessment/Plan Active Problems (Last Updated 10/03/20 @ 09:[address] 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 Osteomyelitis treatment in process. Uncontrolled diabetes with neuropathy, hemoglobin A1c of 12.8%. Ruptured left Achilles tendon with calcaneus gait. Recent homeless status. ambulation difficulty. overt peripheral vascular disease ruled out Plan: I reviewed and discussed his case. Excisional debridement was performed as noted in the clinical panel. Radha (collagen product) was applied. I also recommended the application of a total contact cast to reduce pressure on his ulcer site. This was applied according standard protocol in a neutral position and well-padded manner. He tolerated this well. He was advised to keep this clean, dry, and intact. Is noted he is still fairly active even with his immobilization status and continues to work with physical therapy. With the cast on it is okay if he touches down for transfers and for short walking durations. He understands he needs to keep this dry. He will monitor for signs of blood clot. I recommend application of advanced wound healing product such as epicord or epifix. The indications and benefits, application process, and anticipated healing time and management were discussed. Prior authorization is still pending. It is noted he has undergone over 1 month duration of conventional and advanced wound care. He was reassured local signs of infection have resolved. To complete his IV antibiotic course of 2 weeks of ceftriaxone IV and Flagyl p.o. per infectious disease. Follow-up with infectious disease specialist, Dr. De Leon. He will likely require long-term use of an ankle-foot orthotic due to his calcaneus style gait that is resulting from his ruptured Achilles tendon. Repair of this Achilles or arthrodesis of the ankle but only be considered if he was able to demonstrate appropriate postoperative care and remarkable improvement in lifestyle and hemoglobin A1c status. Consideration may also be given to percutaneous attempted Achilles reapproximation with a PARS type system. He understands he is at risk for limb loss. I recommend continuing with any nutritional supplementation available clinical halfway. His noninvasive vascular studies were reviewed with triphasic PT and DP pulses bilateral. His right NADIA is 1.12 and left 1.16. His toe brachial index is 1.12 on the right and 1.34 on the left. There is no significant segmental pressure drop and therefore no arterial occlusive lesion is suspected. I answered his questions. To return to clinic in 1 week. It is noted he plans to leave his [facility]-care facility after his IV antibiotics are completed which is AGAINST MEDICAL ADVICE. He relates he has a place to stay now. Note: [employer] speech recognition loss prevention guard software was used to create portions of this document. Sound-alike and misspelled words, as well as other loss prevention guard errors may be contained in the documentation.
[2020-11-18 10:07] VITALS: BP 88/66; PULSE 106; RESP 18; TEMP 36.6; BMI 25.4
--- NOTE | 2020-11-18 11:09 | PN.PCM_ITS ---
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 Code(s): L97.523 - Non-pressure 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 (2) Osteomyelitis Status: Chronic Code(s): M86.9 - Osteomyelitis, unspecified (3) Rheumatoid arthritis Status: Chronic Code(s): M06.9 - Rheumatoid arthritis, unspecified (4) Type 2 diabetes mellitus with diabetic polyneuropathy Status: Chronic Code(s): E11.42 - Type 2 diabetes mellitus with diabetic polyneuropathy (5) Calcaneal gait Status: Chronic Code(s): R26.89 - Other abnormalities of gait and mobility (6) Walking difficulty due to ankle and foot Status: Chronic Code(s): R26.2 - Difficulty in walking, not elsewhere classified (7) Achilles rupture, left Status: Chronic Qualifiers: Encounter type: sequela Qualified Code(s): S86.012S - Strain of left Achilles tendon, sequela Code(s): S86.012A - Strain of left Achilles tendon, initial encounter Type of Wound Date of Service: 11/18/20 Chief Complaint: left heel ulcer History of Wound: This 60-year-old diabetic male with a hemoglobin A1c of 12.8% is following up at the wound healing center for left heel wound. He was recently hospitalized and underwent an urgent surgical debridement on 10-04-2020. He has since been residing at [facility] with wound VAC treatment and was recently discharged. He is now living in an apartment. His infection has been responding well to the surgical debridement and IV antibiotics that he completed last week. He also has a ruptured Achilles tendon that was identified clinically and with MRI evaluation during his most recent hospital admission. He completed noninvasive vascular study and would like to go over the results. He tried to get a knee roller and due to cost purposes purchased a knee scooter and will make some modifications this week. He denies fever, chill, nausea, vomiting, odor. He kept his total contact cast clean dry and intact as advised. He is still waiting for advanced wound healing product insurance prior authorization. Progress of Wound: Improving - Physical Exam Vital Signs Temp Pulse Resp BP 98 F 106 H 18 88/66 L 11/18/20 10:07 11/18/20 10:07 11/18/20 10:11/18/20 10:07 General: Alert, Oriented x3, Cooperative, No apparent distress HEENT: Atraumatic Extremities: No cyanosis, Capillary Refill Less than 3 Seconds, No Calf Tenderness, Edema - Mild, Peripheral Pulses Normal Skin: Ulcer/ Wound - No purulence, erythema, streaking, odor, acute infection. There is still deep tissue exposure noted with minimal exposed calcaneus. There is progressive granulation tissue covering the previously exposed plantar fascial tissue. Peripheral epithelialization is progressive., - - Adjacent skin is hairless and atrophic Wound Measurements and Assessment WC - Nurse 1 - General Ulcer Measurement Start: 11/04/20 13:44 Freq: Status: Active Protocol: Activity Type Activity Date Activity User E-Sign Co-Sign Detail Recorded Client Recorded Date Recorded By Document 11/18/20 10:07 RB [id number] 11/18/20 10:09 RB 11/18/20 10:07 Wound Center Nurse 1 [Ulcer Assessment] #1- L HEEL -Combined with other wound No -Current Size (cm) - Length 1.8 -Current Size (cm) - Width 3 -Current Size (cm) - Depth 0.5 -Total Square Cm 5.4 -Tunneling No -Undermining/Tunneling Yes -Undermining/Tunneling Starts (O' 7 clock) -Undermining/Tunneling Ends (O'clock) 4 -Maximum Distance (cm) 0.4 -Circular Undermining No -Exudate Amt Small -Exudate Type Serosanguineous -Wound Margin Thickened & Rolled Under -Granulation Amt Medium (34-66%) -Granulation [place] -Slough/Fibrin Yes -Necrosis Amt Small (1-33%) -Necrotic Tissue Type Adherent Slough -Structure Exposed N/A -Texture (Teodora-wound Skin Appearance) Assessed,Callus -Moisture (Teodora-wound Skin Appearance Assessed ) -Color (Teodora-wound Skin Appearance) Assessed -Temperature (Teodora-wound Skin No Abnormality Appearance) (Pt Warm) -Tenderness on Palpation (Teodora-wound No Skin Appearance) -Ulcer Cleansing Wound Cleanser -Foul Odor after Cleansing No -Anesthetic Used 4% Lidocaine Solution WC - Nurse 2 - General Ulcer CM Notes Start: 11/04/20 13:44 Freq: Status: Active Protocol: Activity Type Activity Date Activity User E-Sign Co-Sign Detail Recorded Client Recorded Date Recorded By Document 11/18/20 10:21 SUSANNE [id number] 11/18/20 10:29 11/18/20 10:21 Wound Center Nurse 2 [Procedure/Treatment] -Time 10:24 -Correct Patient Yes -Correct Side, Site, Position Yes -Correct Procedure Yes -Procedure Performed Yes -Type of Procedure Debridement -Clinical Debridement Subcutaneous -Tissue Removed Subcutaneous -Post Debridement (cm) - Length 1.8 -Post Debridement (cm) - Width 3.1 -Post Debridement (cm) - Depth 0.5 -Total Square (Post) (cm) 5.58 -Area of Debridement (cm) - Length 1.8 -Area of Debridement (cm) - Width 3.1 -Total Square (Area) (cm) 5.58 -Tunneling No -Undermining/Tunneling No -Circular Undermining No -Ulcer Cleansing Rinsed/ Irrigated with Saline -Foul Odor after Cleansing No -Bioengineered Tissue No -Bleeding Controlled with Pressure -Offloading Yes -Type of Offloading Total Contact Cast (TCC) - Left ($) -Debridement - Subq, 1st 20sq cm Yes [See Physician Procedure note for Specifics] Pain Scale: 0-10 Numeric [Pain] -Is Patient Pain Free? Yes Musculoskeletal: Muscle Wasting, - - Calcaneus gait left Neurological: - - Lack of epicritic sensation to light touch is noted and this is consistent with neuropathy status Psych/Mental Status: Normal Affect, Appropriate Debridement Note Post-Debridement Measurements/Treatment WC - Nurse 2 - General Ulcer CM Notes Start: 11/04/20 13:44 Freq: Status: Active Protocol: Activity Type Activity Date Activity User E-Sign Co-Sign Detail Recorded Client Recorded Date Recorded By Document 11/04/20 16:30 CHAPARRO [id number] 11/04/20 16:31 PL Document 11/11/20 09:05 JF [id number] 11/11/20 09:14 JF Document 11/18/20 10:21 SUSANNE [id number] 11/18/20 10:29 11/04/20 11/11/20 11/18/20 16:30 09:05 10:21 Wound Center Nurse 2 #1- L HEEL -Time 14:25 09:06 10:24 -Correct Patient Yes Yes Yes -Correct Side, Site, Position Yes Yes Yes -Correct Procedure Yes Yes Yes -Procedure Performed Yes Yes Yes -Type of Procedure Debridement Debridement Debridement -Clinical Debridement Subcutaneous Subcutaneous Subcutaneous -Tissue Removed Subcutaneous Subcutaneous Subcutaneous -Post Debridement (cm) - Length 2.1 1.8 1.8 -Post Debridement (cm) - Width 3.4 3.5 3.1 -Post Debridement (cm) - Depth 0.4 1 0.5 -Total Square (Post) (cm) 7.14 6.30 5.58 -Area of Debridement (cm) - Length 2.1 1.8 1.8 -Area of Debridement (cm) - Width 3.4 3.5 3.1 -Total Square (Area) (cm) 7.14 6.30 5.58 -Tunneling No No No -Undermining/Tunneling No No No -Circular Undermining No No No -Wound/Ulcer Outcome Not Healed Not Healed -Ulcer Cleansing Rinsed/ Wound Cleanser Rinsed/ Irrigated with Irrigated with Saline Saline -Foul Odor after Cleansing No No No -Bioengineered Tissue No No No -Bleeding Controlled with Pressure Pressure -Offloading Yes Yes -Type of Offloading Total Contact Total Contact Total Contact Cast (TCC) - Cast (TCC) - Cast (TCC) - Left ($) Left ($) Left ($) -Treatment Response Procedure Tolerated Well -Debridement - Subq, 1st 20sq cm Yes Yes Yes Pain Scale: 0-10 Numeric Is Patient Pain Free? Yes Yes Yes - Nurse 3 - General Ulcer D/C NN Start: 11/04/20 13:44 Freq: Status: Active Protocol: Activity Type Activity Date Activity User E-Sign Co-Sign Detail Recorded Client Recorded Date Recorded By Document 11/04/20 14:42 [facility] [id number] 11/04/20 14:43 [facility] Document 11/11/20 09:22 [id number] 11/11/20 09:23 11/04/20 11/11/20 14:42 09:22 Wound Care Nurse 3 #1- L HEEL -Ulcer Cleansing Rinsed/ Rinsed/ Irrigated with Irrigated with Saline Saline -Foul Odor after Cleansing No No -Primary Dressing Applied Promogran Promogran Radha Matter, Radha Matter Other -Other Dressing tcc undercast per myles walsh rn -Primary Dressing Covered/Secured with Dry Gauze, Dry Gauze Secured with Tape,Other -Other Covering foam -Promogran Radha Matter 1 1 Treatment Response Procedure Procedure Tolerated Well Tolerated Well Pain Scale: 0-10 Numeric Is Patient Pain Free? Yes Yes WC - Visit Discharge Discharge Condition Stable Stable Ambulatory Status Wheelchair Wheelchair Transportation Private Auto Medication Reconcilliation completed & Yes provided to patient/care provider Clinical Summary of Care Provided Yes Facility Type [facility] Wound debrided: plantar heel Laterality: Left Wound Grade/Stage: grade 3 Type of Debridement: Excisional debridement Anesthesia Used: 5% Lidocaine Gel Depth: in the subcutaneous layer Percentage of wound debrided: 100 Instrument Used: #15 blade Tissue Removed: fibrous, devitalized subcutaneous, biofilm, slough Severity: Fat Layer Exposed Amount of bleeding with debridement: Mild Bleeding Controlled with: Pressure Patient tolerated procedure well Assessment/Plan Active Problems (Last Updated 10/03/20 @ 09:[address] 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 Osteomyelitis treatment in process. Uncontrolled diabetes with neuropathy, hemoglobin A1c of 12.8%. Ruptured left Achilles tendon with calcaneus gait. ambulation difficulty Plan: I reviewed and discussed his case. Excisional debridement was performed a s noted in the clinical panel. Radha (collagen product) was applied. I also recommended the application of a total contact cast to reduce pressure on his ulcer site. This was applied according standard protocol in a neutral position and well-padded manner. He tolerated this well. He was advised to keep this clean, dry, and intact. Is noted he is still fairly active even with his immobilization status and continues to work with physical therapy. With the cast on it is okay if he touches down for transfers and for short walking durations. He understands he needs to keep this dry. To proceed forward with obtaining a knee roller or modified scooter. He will monitor for signs of blood clot. I recommend application of advanced wound healing product such as epicord or epifix. The indications and benefits, application process, and anticipated healing time and management were discussed. Prior authorization is still pending. It is noted he has undergone over 1 month duration of conventional and advanced wound care. He was reassured local signs of infection have resolved. He completed IV and oral antibiotic course under the management of infectious disease. Follow-up with infectious disease specialist, Dr. De Leon if needed or as scheduled. He will likely require long-term use of an ankle-foot orthotic due to his calcaneus style gait that is resulting from his ruptured Achilles tendon. Repair of this Achilles or arthrodesis of the ankle but only be considered if he was able to demonstrate appropriate postoperative care and remarkable improvement in lifestyle and hemoglobin A1c status. Consideration may also be given to percutaneous attempted Achilles reapproximation with a PARS type system. He understands he is at risk for limb loss. I recommend continuing with any nutritional supplementation available clinical [facility]. His noninvasive vascular studies were reviewed with triphasic PT and DP pulses bilateral. His right NADIA is 1.12 and left 1.16. His toe brachial index is 1.12 on the right and 1.34 on the left. There is no significant segmental pressure drop and therefore no arterial occlusive lesion is suspected. I answered his questions. To return to clinic in 1 week. Note: ReplySend speech recognition lodge officer software was used to create portions of this document. Sound-alike and misspelled words, as well as other lodge officer errors may be contained in the documentation.
[2020-11-25 13:39] VITALS: BP 152/82; PULSE 105; RESP 20; TEMP 37; BMI 25.4
[2020-11-25 14:15] VITALS: BP 152/82
--- NOTE | 2020-11-25 22:45 | PCM.WC.PN ---
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 Code(s): L97.523 - Non-pressure 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 (2) Osteomyelitis Status: Chronic Code(s): M86.9 - Osteomyelitis, unspecified (3) Rheumatoid arthritis Status: Chronic Code(s): M06.9 - Rheumatoid arthritis, unspecified (4) Type 2 diabetes mellitus with diabetic polyneuropathy Status: Chronic Code(s): E11.42 - Type 2 diabetes mellitus with diabetic polyneuropathy (5) Calcaneal gait Status: Chronic Code(s): R26.89 - Other abnormalities of gait and mobility (6) Walking difficulty due to ankle and foot Status: Chronic Code(s): R26.2 - Difficulty in walking, not elsewhere classified (7) Achilles rupture, left Status: Chronic Qualifiers: Encounter type: sequela Qualified Code(s): S86.012S - Strain of left Achilles tendon, sequela Code(s): S86.012A - Strain of left Achilles tendon, initial encounter Type of Wound Date of Service: 11/25/20 Chief Complaint: left heel ulcer History of Wound: This 60-year-old diabetic male with a hemoglobin A1c of 12.8% is following up at the wound healing center for left heel wound. He was recently hospitalized and underwent an urgent surgical debridement on 10-04-2020. He was recently discharged from [facility] and kept his total contact cast clean, dry, and intact this past week. He is now living in an apartment. His infection has been responding well to the surgical debridement and IV antibiotics that he completed recently. He also has a ruptured Achilles tendon that was identified clinically and with MRI evaluation during his most recent hospital admission. He denies fever, chill, nausea, vomiting, odor. He is ready to proceed forward with application of advanced wound healing product today. He also went for his consultation with spine surgeon for his neck pain which he relates he will try physical therapy because he has a history of prior surgical intervention and now arthritis. Progress of Wound: Improving - Physical Exam Vital Signs Temp Pulse Resp BP 98.6 F 105 H 20 H 152/82 H 11/25/20 13:39 11/25/20 13:39 11/25/20 13:39 11/25/20 14:15 General: Alert, Oriented x3, Cooperative, No apparent distress Extremities: No cyanosis, Capillary Refill Less than 3 Seconds, No Calf Tenderness, Diminished Peripheral Pulses, Edema Skin: Ulcer/ Wound - No purulence, erythema, streaking, odor, infection. Deep tissue is still exposed. Peripheral callus is noted to the posterior rim. Adjacent skin is hairless and atrophic. Wound Measurements and Assessment WC - Nurse 1 - General Ulcer Measurement Start: 11/04/20 13:44 Freq: Status: Active Protocol: Activity Type Activity Date Activity User E-Sign Co-Sign Detail Recorded Client Recorded Date Recorded By Document 11/25/20 13:39 TREMAYNE [id number] 11/25/20 13:44 DL 11/25/20 13:39 Wound Center Nurse 1 [Ulcer Assessment] #1- L HEEL -Current Size (cm) - Length 1.6 -Current Size (cm) - Width 3 -Current Size (cm) - Depth 0.7 -Total Square Cm 4.8 -Photo Taken No -Exudate Amt Large -Exudate Type Serosanguineous -Wound Margin Thickened -Granulation Amt None Present (0 %) -Necrosis Amt Large (67-100%) -Necrotic Tissue Type Adherent Slough -Structure Exposed Bone -Texture (Teodora-wound Skin Appearance) Scarring -Moisture (Teodora-wound Skin Appearance Assessed, ) Maceration -Color (Teodora-wound Skin Appearance) No Abnormality -Temperature (Teodora-wound Skin No Abnormality Appearance) (Pt Warm) -Tenderness on Palpation (Teodora-wound No Skin Appearance) -Ulcer Cleansing Wound Cleanser -Foul Odor after Cleansing No -Anesthetic Used 4% Lidocaine Solution WC - Nurse 2 - General Ulcer CM Notes Start: 11/04/20 13:44 Freq: Status: Active Protocol: Activity Type Activity Date Activity User E-Sign Co-Sign Detail Recorded Client Recorded Date Recorded By Document 11/25/20 13:48 SUSANNE [id number] 11/25/20 13:55 SUSANNE 11/25/20 13:48 Wound Center Nurse 2 [Procedure/Treatment] -Time 13:49 -Correct Patient Yes -Correct Side, Site, Position Yes -Correct Procedure Yes -Procedure Performed Yes -Type of Procedure Debridement -Clinical Debridement Subcutaneous -Tissue Removed Muscle,Fascia -Post Debridement (cm) - Length 1.6 -Post Debridement (cm) - Width 3.1 -Post Debridement (cm) - Depth 1.0 -Total Square (Post) (cm) 4.96 -Area of Debridement (cm) - Length 1.6 -Area of Debridement (cm) - Width 3.1 -Total Square (Area) (cm) 4.96 -Tunneling No -Undermining/Tunneling No -Circular Undermining No -Wound/Ulcer Outcome Not Healed -Ulcer Cleansing Rinsed/ Irrigated with Saline -Foul Odor after Cleansing No -Bioengineered Tissue Yes -Type of Bioengineered Tissue Epicord -Expiration Date 06/30/25 -Product Lot Number [id number] -Percent Used 100 -Lot number of Saline Used [id number] -Bleeding Controlled with Pressure -Offloading Yes -Type of Offloading Total Contact Cast (TCC) - Left ($) -Treatment Response Procedure Tolerated Well -Debridement - Subq, 1st 20sq cm No -Debridement - Muscle / Fascia, 1st No 20sq cm -Apply Skin Sub - 1st 25 sq cm - Feet 1 -Epicord (per sq cm) 6 [See Physician Procedure note for Specifics] Pain Scale: 0-10 Numeric [Pain] -Is Patient Pain Free? Yes - Nurse 3 - General Ulcer D/C NN Start: 11/04/20 13:44 Freq: Status: Active Protocol: Activity Type Activity Date Activity User E-Sign Co-Sign Detail Recorded Client Recorded Date Recorded By Document 11/25/20 14:15 YELITZA [id number] 11/25/20 14:16 YELITZA 11/25/20 14:15 Wound Care Nurse 3 [Wound Dressing] #1- L HEEL -Primary Dressing Covered/Secured Dry Gauze with -Other Covering TCC primary layer applied 3 inch Vital Signs [Blood Pressure] -Blood Pressure (90/60-120/80) 152/82 H -Blood Pressure Mean (mm Hg) 105 -Source Monitor -Position Sitting -Blood Pressure Location Left Arm Pain Scale: 0-10 Numeric [Pain] -Is Patient Pain Free? Yes - Visit Discharge [Visit Discharge Information] -Discharge Condition Stable -Ambulatory Status Wheelchair -Medication Reconcilliation completed No & provided to patient/care provider -Clinical Summary of Care Provided Yes Musculoskeletal: No Tenderness to Palpation of Joints or Extremities, Muscle Wasting, - - Calcaneus gait position Neurological: - - Lack of normal epicritic sensation light touch is consistent with neuropathy status Psych/Mental Status: Normal Affect, Appropriate Debridement Note Post-Debridement Measurements/Treatment WC - Nurse 2 - General Ulcer CM Notes Start: 11/04/20 13:44 Freq: Status: Active Protocol: Activity Type Activity Date Activity User E-Sign Co-Sign Detail Recorded Client Recorded Date Recorded By Document 11/04/20 16:30 PL [id number] 11/04/20 16:31 PL Document 11/11/20 09:05 JF [id number] 11/11/20 09:14 JF Document 11/18/20 10:21 JF [id number] 11/18/20 10:29 JF Document 11/25/20 13:48 [id number] 11/25/20 13:55 JF 11/04/20 11/11/20 11/18/20 16:30 09:05 10:21 Wound Center Nurse 2 #1- L HEEL -Time 14:25 09:06 10:24 -Correct Patient Yes Yes Yes -Correct Side, Site, Position Yes Yes Yes -Correct Procedure Yes Yes Yes -Procedure Performed Yes Yes Yes -Type of Procedure Debridement Debridement Debridement -Clinical Debridement Subcutaneous Subcutaneous Subcutaneous -Tissue Removed Subcutaneous Subcutaneous Subcutaneous -Post Debridement (cm) - Length 2.1 1.8 1.8 -Post Debridement (cm) - Width 3.4 3.5 3.1 -Post Debridement (cm) - Depth 0.4 1 0.5 -Total Square (Post) (cm) 7.14 6.30 5.58 -Area of Debridement (cm) - Length 2.1 1.8 1.8 -Area of Debridement (cm) - Width 3.4 3.5 3.1 -Total Square (Area) (cm) 7.14 6.30 5.58 -Tunneling No No No -Undermining/Tunneling No No No -Circular Undermining No No No -Wound/Ulcer Outcome Not Healed Not Healed -Ulcer Cleansing Rinsed/ Wound Cleanser Rinsed/ Irrigated with Irrigated with Saline Saline -Foul Odor after Cleansing No No No -Bioengineered Tissue No No No -Type of Bioengineered Tissue -Expiration Date -Product Lot Number -Percent Used -Lot number of Saline Used -Bleeding Controlled with Pressure Pressure -Offloading Yes Yes -Type of Offloading Total Contact Total Contact Total Contact Cast (TCC) - Cast (TCC) - Cast (TCC) - Left ($) Left ($) Left ($) -Treatment Response Procedure Tolerated Well -Debridement - Subq, 1st 20sq cm Yes Yes Yes -Debridement - Muscle / Fascia, 1st 20sq cm -Apply Skin Sub - 1st 25 sq cm - Feet -Epicord (per sq cm) Pain Scale: 0-10 Numeric Is Patient Pain Free? Yes Yes Yes 11/25/20 13:48 Wound Center Nurse 2 #1- L HEEL -Time 13:49 -Correct Patient Yes -Correct Side, Site, Position Yes -Correct Procedure Yes -Procedure Performed Yes -Type of Procedure Debridement -Clinical Debridement Subcutaneous -Tissue Removed Muscle,Fascia -Post Debridement (cm) - Length 1.6 -Post Debridement (cm) - Width 3.1 -Post Debridement (cm) - Depth 1.0 -Total Square (Post) (cm) 4.96 -Area of Debridement (cm) - Length 1.6 -Area of Debridement (cm) - Width 3.1 -Total Square (Area) (cm) 4.96 -Tunneling No -Undermining/Tunneling No -Circular Undermining No -Wound/Ulcer Outcome Not Healed -Ulcer Cleansing Rinsed/ Irrigated with Saline -Foul Odor after Cleansing No -Bioengineered Tissue Yes -Type of Bioengineered Tissue Epicord -Expiration Date 06/30/25 -Product Lot Number [id number] -Percent Used 100 -Lot number of Saline Used [id number] -Bleeding Controlled with Pressure -Offloading Yes -Type of Offloading Total Contact Cast (TCC) - Left ($) -Treatment Response Procedure Tolerated Well -Debridement - Subq, 1st 20sq cm No -Debridement - Muscle / Fascia, 1st No 20sq cm -Apply Skin Sub - 1st 25 sq cm - Feet 1 -Epicord (per sq cm) 6 Pain Scale: 0-10 Numeric Is Patient Pain Free? Yes - Nurse 3 - General Ulcer D/C NN Start: 11/04/20 13:44 Freq: Status: Active Protocol: Activity Type Activity Date Activity User E-Sign Co-Sign Detail Recorded Client Recorded Date Recorded By Document 11/04/20 14:42 [facility] [id number] 11/04/20 14:43 BMF Document 11/11/20 09:22 JF [id number] 11/11/20 09:23 JF Document 11/18/20 10:44 DL [id number] 11/18/20 11:50 DL Document 11/25/20 14:15 RB [id number] 11/25/20 14:16 RB 11/04/20 11/11/20 11/18/20 14:42 09:22 10:44 Wound Care Nurse 3 #1- L HEEL -Ulcer Cleansing Rinsed/ Rinsed/ Wound Cleanser Irrigated with Irrigated with Saline Saline -Foul Odor after Cleansing No No No -Primary Dressing Applied Promogran Promogran Promogran Radha Matter, Radha Matter Radha Matter Other -Other Dressing tcc undercast TCC per r nico undercasting rn applied -Primary Dressing Covered/Secured with Dry Gauze, Dry Gauze Secured with Tape,Other -Other Covering foam -Promogran Radha Matter 1 1 1 Treatment Response Procedure Procedure Procedure Tolerated Well Tolerated Well Tolerated Well Vital Signs Blood Pressure (90/60-120/80) Blood Pressure Mean (mm Hg) Source Position Blood Pressure Location Pain Scale: 0-10 Numeric Is Patient Pain Free? Yes Yes Yes WC - Visit Discharge Discharge Condition Stable Stable Stable Ambulatory Status Wheelchair Wheelchair Ambulatory Transportation Private Auto Private Auto Medication Reconcilliation completed & Yes provided to patient/care provider Clinical Summary of Care Provided Yes Facility Type [facility] Care Facility 11/25/20 14:15 Wound Care Nurse 3 #1- L HEEL -Ulcer Cleansing -Foul Odor after Cleansing -Primary Dressing Applied -Other Dressing -Primary Dressing Covered/Secured with Dry Gauze -Other Covering TCC primary layer applied 3 inch -Promogran Radha Matter Treatment Response Vital Signs Blood Pressure (90/60-120/80) 152/82 H Blood Pressure Mean (mm Hg) 105 Source Monitor Position Sitting Blood Pressure Location Left Arm Pain Scale: 0-10 Numeric Is Patient Pain Free? Yes WC - Visit Discharge Discharge Condition Stable Ambulatory Status Wheelchair Transportation Medication Reconcilliation completed & No provided to patient/care provider Clinical Summary of Care Provided Yes Facility Type Wound debrided: plantar heel Laterality: Left Wound Grade/Stage: grade 3 Type of Debridement: Excisional debridement Anesthesia Used: 5% Lidocaine Gel Depth: in the subcutaneous layer Percentage of wound debrided: 100 Instrument Used: #15 blade Tissue Removed: fibrous, devitalized subcutaneous, biofilm, slough Severity: Fat Layer Exposed Amount of bleeding with debridement: Mild Bleeding Controlled with: Pressure Patient tolerated procedure well Assessment/Plan Active Problems (Last Updated 10/03/20 @ 09:[address] 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 Osteomyelitis treated medically with IV antibiotics. Uncontrolled diabetes with neuropathy, hemoglobin A1c of 12.8%. Ruptured left Achilles tendon with calcaneus gait. ambulation difficulty Plan: I reviewed and discussed his case. Excisional debridement was performed as noted in the clinical panel. He was approved for application of advanced wound healing product, epicord. Verbal consent was obtained and this was applied according to standard protocol. This was moistened with saline to promote incorporation. This was covered with a wound veil and Steri-Strips. He tolerated this well. The benefits and anticipated use and management were reviewed again today. Reapplication will be considered within the next week or 2. Prior to application, excisional debridement was performed as noted in the clinical panel. I also recommended the application of a total contact cast to reduce pressure on his ulcer site. This was applied according standard protocol in a neutral position and well-padded manner. He tolerated this well. He was advised to keep this clean, dry, and intact. To proceed forward with obtaining a knee roller or modified scooter. He will monitor for signs of blood clot. It is noted he has undergone over 1 month duration of conventional and advanced wound care. He was reassured local signs of infection have resolved. He completed IV and oral antibiotic course under the management of infectious disease. Follow-up with infectious disease specialist, Dr. De Leon if needed or as scheduled. He will likely require long-term use of an ankle-foot orthotic due to his calcaneus style gait that is resulting from his ruptured Achilles tendon. Repair of this Achilles or arthrodesis of the ankle but only be considered if he was able to demonstrate appropriate postoperative care and remarkable improvement in lifestyle and hemoglobin A1c status. Consideration may also be given to percutaneous attempted Achilles reapproximation with a PARS type system. He understands he is at risk for limb loss. I recommend continuing with any nutritional supplementation available clinical residential. His noninvasive vascular studies were reviewed with triphasic PT and DP pulses bilateral. His right NADIA is 1.12 and left 1.16. His toe brachial index is 1.12 on the right and 1.34 on the left. There is no significant segmental pressure drop and therefore no arterial occlusive lesion is suspected. I answered his questions. To return to clinic in 1 week. Note: Your Policy Manager speech recognition ups driver software was used to create portions of this document. Sound-alike and misspelled words, as well as other ups driver errors may be contained in the documentation.
== END 2020-11-29 23:59 ==
LOC: WC 13:45
PROVIDERS: Visit Provider Podiatrist
DX: E11.621 Type 2 diabetes mellitus with foot ulcer (principal); L97.423 Non-pressure chronic ulcer of left heel and midfoot with necrosis of muscle; E11.69 Type 2 diabetes mellitus with other specified complication; M86.9 Osteomyelitis, unspecified; R78.81 Bacteremia; B95.5 Unspecified streptococcus as the cause of diseases classified elsewhere; B96.1 Klebsiella pneumoniae [K. pneumoniae] as the cause of diseases classified elsewhere; S86.012S Strain of left Achilles tendon, sequela; E11.65 Type 2 diabetes mellitus with hyperglycemia; E11.42 Type 2 diabetes mellitus with diabetic polyneuropathy; B95.61 Methicillin susceptible Staphylococcus aureus infection as the cause of diseases classified elsewhere; M06.9 Rheumatoid arthritis, unspecified; M54.2 Cervicalgia; R26.2 Difficulty in walking, not elsewhere classified; Z79.4 Long term (current) use of insulin; Z79.899 Other long term (current) drug therapy; Z59.0 Homelessness; Z86.711 Personal history of pulmonary embolism; Z87.891 Personal history of nicotine dependence
CPT/HCPCS: 11042; 15275; 29445; Q4187

== ENCOUNTER 2020-12-07 19:17 | Inpatient (IN) | payer MEDICAID, SELFPAY ==
[2020-12-07] VITALS (9 sets, daily range): BP systolic 93–150; BP diastolic 59–68; PULSE 90–124; RESP 16–20; TEMP 36.8–37.1; O2SAT 94–99; BMI 24.7; BMI 25.4; BMI 25.5
[2020-12-07 20:14] LABS: Absolute Lymphocyte Count 1.54 X10^3/uL (0.83-4.51); Absolute Neutrophil Count 11.3 X10^3/uL (2.0-7.7); Basophil# 0.05 X10^3/uL; Basophil% 0.3 % (0-1); Eosinophil# 0.06 X10^3/uL; Eosinophils% 0.4 % (0-5); Hemoglobin 14.6 g/dL (13.0-16.5); Lymphocyte # 1.54 X10^3/ul (4.0); Lymphocyte % 10.7 % (19-41); Mean Corp Hgb Conc 32.4 g/dL (32-36); Mean Corpuscular Hgb 27.9 pg (27.0-32.0); Mean Platelet Vol. 10.3 fl (6.2-12.0); Monocyte# 1.36 X10^3/uL; Monocyte% 9.5 % (0-10); NRBC Flagged by Analyzer 0 % (0-5); Neutrophil # 11.27 X10^3/uL (2.7-7.7); Neutrophil % 78.5 % (47-70); Platelet Count 391 K/mm3 (150-450); RBC Distribution Width CV 12.4 % (11.6-14.6); RBC Distribution Width SD 39.4 fl (35.1-43.9); Red Blood Count 5.23 M/mm3 (4.6-6.2); White Blood Count 14.4 K/mm3 (4.4-11.0)
[2020-12-07 20:18] LABS: International Normalized Ratio 1.1; Prothrombin Time (Protime)PT. 13.7 SECONDS (11.7-14.9)
[2020-12-07 20:19] LABS: Partial Thromboplast Time 35.8 Seconds (24.1-36.2)
[2020-12-07 20:30] LABS: ALB/GLOB Ratio 0.4 RATIO (0.9-2.4); AST(SGOT) 21 U/L (15-37); Alanine Aminotransfer ALT/SGPT 31 U/L (16-61); Albumin, Serum 2.7 g/dL (3.2-5.0); Alkaline Phosphatase 133 U/L (45-117); Anion Gap 8 (5-15); BUN 14 mg/dL (7-18); BUN/Creat Ratio 8.4 RATIO (10-20); Calcium,Total 9.2 mg/dL (8.5-10.1); Chloride 90 mmol/L (98-107); Creatinine, Serum 1.67 mg/dL (0.70-1.30); EST Glomerular Filtration Rate 45 mL/min (>60); Est Glom Filt Rate - Afr Amer 54 mL/min (>60); Estimated Creatinine Clearance 47.96 ml/min; Glucose 517 mg/dL (74-106); Protein, Total 8.7 g/dL (6.4-8.2); Sodium Level 128 mmol/L (136-145)
[2020-12-07] MEDS: 0.9% Normal Saline 1,000 ML 1000 ML IV (20:41)
--- NOTE | 2020-12-07 20:41 | CT_ITS ---
HISTORY: HEMATURIA, BLOOD IN STOOL TECHNIQUE: Helically acquired images were obtained of the abdomen and pelvis without oral or IV contrast. A radiation dose optimization technique was used for this scan. COMPARISON: CT scan from October 01, 2019 of the chest, and extends down to the gallbladder, and CT scan August 06, 2019 that begins at the level of the aortic valve and extends to the pubic symphysis. FINDINGS: # of images incl. paperwork: 468 LUNG BASES: clear. CT abdomen: Vertebral body height is normal. Minimal degenerative alignment. Some degenerative disc disease. 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 Multilevel facet arthropathy. Annular tear with disc protrusion at the L5-S1 level. Gas from vacuum disc phenomenon at the L5-S1 level herniates through the annular tear into the spinal canal adjacent to the dural sac. The degenerative changes at the L4-L5 level are not acute. The gallbladder distended with many small calcified gallstones, similar to the 1999 nineteenths a. Several cystic duct stones are present. No evidence for gallbladder wall thickening or pericholecystic fluid. No biliary ductal dilatation.. Liver, pancreas, are normal. Benign its calcified granulomatous disease within the spleen. Nodules within the adrenal glands. The right adrenal nodule measures 2.3 cm, and has a central density of 21 Hounsfield units. The left adrenal nodule measures 18 mm, and measures -5 Hounsfield units. Central vascular calcifications within the kidneys. I do not perceive any urothelial calcifications. No hydronephrosis or hydroureter. . The aorta is diseased with atherosclerotic plaque, but without aneurysm.. There is no intra-or extrahepatic biliary ductal dilatation. CT pelvis: No ascites is present. The prostate gland is not enlarged. The appendix is not identified. The bladder is decompressed with thickened may. Bowel gas pattern is normal. CT/Abdomen/Pelvis without Cont IMPRESSION: Cholelithiasis with cystic duct stones. No biliary ductal dilatation. No pathological distention of the gallbladder lumen. No evidence for gallbladder wall thickening or pericholecystic fluid. Cholelithiasis was present on the August 06, [address] scan. The cystic duct stones may be new however since that time Bilateral adrenal nodules. The left adrenal nodule is likely a benign adenoma as to its density. That diagnosis cannot be made on the right adrenal nodule due to its density. The right adrenal that is also likely a benign adenoma. The appearance of the adrenal glands is similar to that of the August 06, 2019 study. Stability since that time and is suggestive of benignity. Individualized dose optimization techniques were used for this CT. at 2156 Reported and signed by: Tk Beard MD Electronically Signed: Tk Beard MD at 21:55 EST Tel , Service support ,
[2020-12-07] MEDS: Insulin Lispro 100 UNIT/ML INSULN.PEN 15 UNIT SC (20:44)
[2020-12-07 21:02] LABS: Lactic Acid 3.9 mmol/L (0.4-1.9)
[2020-12-07 21:11] LABS: Bacteria 0 SEEN /hpf (None Seen); Mucous, Urine 0 SEEN /hpf (<or=2+); Red Blood Cells-Urine 0 SEEN /hpf (0-5); Squamous Epithelial Cells - UA 0 SEEN /hpf (0-5)
[2020-12-07 21:38] LABS: Color, Urine Yellow (Yellow); Glucose, Dipstick 1000 mg/dl (Normal); Ketone-Dipstick Negative (Negative); Leukocyte Esterase-Dipstick 500 /ul (Negative); Nitrite-Dipstick Negative (Negative); Occult Blood-Urine 250 /ul (Negative); Protein-Dipstick 100 mg/dl (Negative); Urine Bilirubin Dipstick Negative (Negative); Urine Clarity Turbid (Clear); Urine Urobilinogen Normal (Normal); Urine pH 6.5 (5.0 - 8.0)
[2020-12-07] MEDS: 0.9% Normal Saline 1,000 ML 150 ML IV (21:47)
[2020-12-07 21:52] LABS: White Blood Cells >100 SEEN /hpf (0-5)
[2020-12-07 21:55] LABS: Bedside Glucose 415 mg/dL (70-110)
--- NOTE | 2020-12-07 22:00 | ED.VIS.GEN ---
History of Present Illness Chief Complaint: Complaint Informant: Patient Narrative: 60-year-old male states for the past couple days he has had hematuria and blood with his stool. He states he has been sitting and straining while having bowel movements. He notes dysuria and blood with the urine. No abdominal pain. No fevers. He states he has developed some urinary incontinence. He states that he has become progressively weak and as he goes to get off the couch he fell back down prior to arrival. Patient notes his blood sugars greater than 500 today. He is a type II diabetic. - Past Medical History (1) COPD (chronic obstructive pulmonary disease) Status: Chronic (2) Diabetes Status: Chronic (3) Osteomyelitis Status: Chronic (4) Rheumatoid arthritis Status: Chronic (5) Pulmonary embolism Status: Inactive Past Medical History - Allergies and Home Meds Allergies/Adverse Reactions: Allergies onion Allergy (Verified 12/07/20 19:18) Food Allergy SWELLING Surgical History: - - Pins in neck Smoking Status: Former smoker - Family History Paternal Family History: Reports: - - His father from an industrial accident. Maternal Family History: Reports: - - Denies knowledge of maternal medical history Review of Systems General: Reports: Malaise. Denies: Chills, Fever, Sweats Eyes: Denies: Visual changes - bilaterally, Diplopia ENT: Denies: Rhinorrhea, Sore throat Cardiovascular: Denies: Chest pain, Palpitations Respiratory: Denies: Dyspnea, Cough, Dyspnea on exertion Gastrointestinal: Reports: Hematochezia. Denies: Abdominal pain, Nausea, Vomiting, Diarrhea, Melena Genitourinary: Reports: Dysuria, Hematuria. Denies: Frequency Musculoskeletal: Denies: Back pain, Extremity Pain Skin: Denies: Rash, Wounds Neurological: Denies: Headache, Weakness, Numbness Physical Exam Vital Signs/Narrative: Vital Signs Temp Pulse Resp BP Pulse Ox 12/07/20 21:47 98.7 F 90 19 H 93/60 97 12/07/20 20:47 98.4 F 99 20 H 100/67 99 12/07/20 19:18 98.2 F 124 H 18 150/68 H 94 Inital Vital Signs reviewed: Yes General: Well nourished, Well developed, Unkempt, No Acute Distress Head: Normocephalic, Atraumatic Eyes: Perrl, EOMI ENT: Moist mucous membranes, No rhinorrhea Neck: Supple, Nontender Cardiovascular: Regular rate, Regular rhythm, No murmurs Respiratory: No distress, CTA bilaterally, Chest nontender Abdomen: Soft, Nontender, Nondistended, Normal bowel sounds Rectal: - - There is a large amount of stool on the patient's perineum. Rectal exam shows light brown stool no blood.. Negative for: Tenderness Back: Nontender, Normal Inspection Extremities: Nontender, No edema Skin: Normal color, No rash Neurological: Alert, Oriented x3, Cranial nerves II-XII grossly intact, Normal Strength, Normal Sensation Psychological: Normal affect, Normal Mood Diagnostic/Tx/Re-eval Clinical Impression(s) from Imaging Studies Abdomen/Pelvis CT 12/07/20 20:41 IMPRESSION: Cholelithiasis with cystic duct stones. No biliary ductal dilatation. No pathological distention of the gallbladder lumen. No evidence for gallbladder wall thickening or pericholecystic fluid. Cholelithiasis was present on the August 06, [address] scan. The cystic duct stones may be new however since that time Bilateral adrenal nodules. The left adrenal nodule is likely a benign adenoma as to its density. That diagnosis cannot be made on the right adrenal nodule due to its density. The right adrenal that is also likely a benign adenoma. The appearance of the adrenal glands is similar to that of the August 06, 2019 study. Stability since that time and is suggestive of benignity. Individualized dose optimization techniques were used for this CT. at 2156 Reported and signed by: Tk Beard MD Electronically Signed: Tk Beard MD at 21:55 EST Tel , Service support , Laboratory Last Values WBC 14.4 K/mm3 (4.4-11.0) H 12/07/20 19:30 RBC 5.23 M/mm3 (4.6-6.2) 12/07/20 19:30 Hgb 14.6 g/dL (13.0-16.5) 12/07/20 19:30 Hct 45.0 % (40-54) 12/07/20 19:30 MCV 86.0 fL (80-94) 12/07/20 19: MCH 27.9 pg (27.0-32.0) 12/07/20 19: MCHC 32.4 g/dL (32-36) 12/07/20 19: RDW Std Deviation 39.4 fl (35.1-43.9) 12/07/20: RDW Coeff of Cheri 12.4 % (11.6-14.6) 12/07/20: Plt Count 391 K/mm3 (150-450) 12/07/20 19: MPV 10.3 fl (6.2-12.0) 12/07/20 19: Immature Gran % (Auto) 0.600 % (0.0-0.9) 12/07/20: Neut % (Auto) 78.5 % (47-70) H 12/07/20: Lymph % (Auto) 10.7 % (19-41) L 12/07/20: [place] % (Auto) 9.5 % (0-10) 12/07/20 19: Eos % (Auto) 0.4 % (0-5) 12/07/20: Baso % (Auto) 0.3 % (0-1) 12/07/20: Absolute Neuts (auto) 11.3 X10^3/uL (2.0-7.7) H 12/07/20: Absolute Lymphs (auto) 1.54 X10^3/uL (0.83-4.51) 12/07/20: Nucleated RBC % 0 % (0-5) 12/07/20 19: PT 13.7 SECONDS (11.7-14.9) 12/07/20 19: INR 1.1 12/07/20 19: APTT 35.8 Seconds (24.1-36.2) 12/07/20 19: Sodium 128 mmol/L (136-145) L 12/07/20 19: Potassium 4.0 mmol/L (3.5-5.1) 12/07/20: Chloride 90 mmol/L (98-107) L 12/07/20 19: Carbon Dioxide 30.0 mmol/L (21.0-32.0) 12/07/20 19:30 Anion Gap 8 (5-15) 12/07/20 19:30 BUN 14 mg/dL (7-18) 12/07/20 19: Creatinine 1.67 mg/dL (0.70-1.30) H 12/07/20 19:30 Estim Creat Clear Calc 47.96 ml/min 12/07/20 19:30 Est GFR (MDRD) Af Amer 54 mL/min (>60) L 12/07/20 19:30 Est GFR (MDRD) Non-Af 45 mL/min (>60) L 12/07/20 19:30 BUN/Creatinine Ratio 8.4 RATIO (10-20) L 12/07/20 19: Glucose 517 mg/dL (74-106) H* 12/07/20 19:30 Lactic Acid 3.9 mmol/L (0.4-1.9) H* 12/07/20 20:25 Calcium 9.2 mg/dL (8.5-10.1) 12/07/20 19:30 Total Bilirubin 0.60 mg/dL (0.20-1.00) 12/07/20 19:30 AST 21 U/L (15-37) 12/07/20 19:30 ALT 31 U/L (16-61) 12/07/20 19:30 Alkaline Phosphatase 133 U/L (45-117) H 12/07/20 19:30 Total Protein 8.7 g/dL (6.4-8.2) H 12/07/20 19:30 Albumin 2.7 g/dL (3.2-5.0) L 12/07/20 19:30 Globulin 6.0 g/dL (2.2-4.2) H 12/07/20 19:30 Albumin/Globulin Ratio 0.4 RATIO (0.9-2.4) L 12/07/20 19:30 Urine Color Yellow (Yellow) 12/07/20 21:03 Urine Clarity Turbid (Clear) 12/07/20 21:03 Urine pH 6.5 (5.0 - 8.0) 12/07/20 21:03 Ur Specific [place] 1.010 (1.002-1.030) 12/07/20 21:03 Urine Protein 100 mg/dl (Negative) H 12/07/20 21:03 Urine Glucose (UA) 1000 mg/dl (Normal) H 12/07/20 21:03 Urine Ketones Negative mg/dl (Negative) 12/07/20 21:03 Urine Occult Blood 250 /ul (Negative) H 12/07/20 21:03 Urine Nitrite Negative (Negative) 12/07/20 21:03 Urine Bilirubin Negative mg/dL (Negative) 12/07/20 21:03 Urine Urobilinogen Normal mg/dl (Normal) 12/07/20 21:03 Ur Leukocyte Esterase 500 /ul (Negative) H 12/07/20 21:03 Urine RBC 0 SEEN /hpf (0-5) 12/07/20 21:03 Urine WBC >100 SEEN /hpf (0-5) 12/07/20 21:03 Ur Squamous Epith Cells 0 SEEN /hpf (0-5) 12/07/20 21:03 Urine Bacteria 0 SEEN /hpf (None Seen) 12/07/20 21:03 Urine Mucus 0 SEEN /hpf (<or=2+) 12/07/20 21:03 POC Glucose 415 mg/dL (70-110) H 12/07/20 21:45 - Medical Decision Making Patient received IV fluids and later Rocephin. Patient meets criteria for UTI with severe sepsis. Plan will be admission. He is significantly hyperglycemic and also received insulin for that. Prior to be taken upstairs the patient developed some pressure readings of 90/60. While the mean is not less than 65 certainly is concerning. We will change his admission into the ICU. - Critical Care Time Critical care time (excluding procedures): 30-74 minutes - 35 min ED Disposition - Plan for ED Patient: Disposition: Acute Care Hospital [facility] Diagnosis: UTI (urinary tract infection), Severe sepsis, Severe hyperglycemia due to diabetes mellitus
--- NOTE | 2020-12-07 22:23 | HP.PCM_ITS ---
History of Present Illness Date of Admission: 12/07/20 Chief Complaint: Pain with urination The patient is a 60 year old M with a past medical history of type 2 diabetes mellitus and a history of PE. He was admitted through the ED on 12/07/2020 with a complaint of severe burning with urination which have been going on for about 4 to 5 days. Patient said he had severe pain when he tried to urinate and his urine was very offensive and smell. He has not had such symptoms before. He denies any prostate problems, denied any fever or chills, any abdominal pain, nausea vomiting. Patient also said that he thinks that he had some blood in his formed stool. He has never had such before and has never had a colonoscopy before. He denies any history of colon cancer in himself or his family. He denies any history of diverticulitis or hemorrhoids. Review of systems otherwise negative. In the ED, vitals show temperature of 98.7 Fahrenheit with blood pressure of 93/60, pulse rate of 90 and respiratory rate of 19. Blood pressure was initially 150/68 when he came in but at time of review, had dropped to 93/60. History showed sodium of 128 with bicarb of 13 and anion gap of 8. Creatinine was 1.67 and lactic acid was 3.9. Glucose was 517. WBC was 14.4 and hemoglobin was 14.6 with platelets of 391. CT of the abdomen and pelvis showed cholelithiasis with cystic duct stones and no biliary ductal dilatation and no pathological distention of the gallbladder lumen with no evidence of gallbladder wall thickening or pericholecystic fluid. Cholelithiasis had been present since the August 06, 2019 CT scan but cystic duct stones may be new. He also had bilateral adrenal nodules and a left adrenal nodule which was likely benign adenoma with a right adrenal nodule also likely a benign adenoma. Showed more than 100 WBCs and elevated leukocyte esterase. He was started on IV ceftriaxone and has been admitted to be managed for severe sepsis due to UTI as well as hyperglycemia in a poorly controlled diabetic. [] Past Medical History Past Medical History (Chronic Problems): Chronic Problems (Last Updated 10/03/20 @ 09:[address] 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 Deann Calloway, DPM) History of pulmonary embolism Z86.711 Allergies onion Allergy (Verified 12/07/20 19:18) Food Allergy SWELLING Home Medications: Ambulatory Orders Medication Instructions Recorded Acetaminophen [Tylenol Tablet] 650 mg PO Q6H PRN PRN tab 10/06/20 Insulin Lispro [Humalog KwikPen] 8 unit SC TIDAC insuln.pen 10/06/20 Insulin Glargine [Lantus SoloStar 35 units SC QHS 12/07/20 Pen] Surgical History: - - Pins in neck Psychiatric History: No pertinent psych hx Lives: With Family Smoking Status: Former smoker Alcohol: None Drugs: None - *Family History Paternal History Items: - - His father from an industrial accident. Maternal History Items: - - Denies knowledge of maternal medical history Review of Systems Constitutional: Denies: Anorexia, Chills, Fever, Malaise, Weakness Eyes: Denies: Blurred vision HEENT: Denies: Head Aches, Sinus Congestion, Sinus Drainage Cardiovascular: Denies: Chest Pain, Chest Pressure, Chest Tightness, Palpitations Respiratory: Denies: Cough, Shortness of breath at rest, Shortness of breath upon exertion, Sputum production Gastrointestinal: Denies: Abdominal Pain, Nausea, Vomiting Genitourinary: Reports: Dysuria, Frequency. Denies: Hematuria, Incontinence, Nocturia Musculoskeletal: Denies: Joint Pain, Joint Tenderness Skin: Denies: Rash, Wounds Neurological: Denies: Numbness, Tingling, Focal weakness Psychiatric: Denies: Anxiety, Depression, Homicidal Ideations, Suicidal Ideations Hematologic/ Lymphatic: Denies: Easy Bruising, Easy Bleeding VTE Information - Inpt Only VTE Present on Admission: No VTE Pharm Prophylaxis ordered?: Yes Patient Problems: Active and Suspected Problems (Last Updated 10/03/20 @ 09:[address] Deann shay, [place]) UTI (urinary tract infection) (Acute) Severe hyperglycemia due to diabetes mellitus (Acute) Severe sepsis (Acute) - Physical Exam Vitals/I&O's: Vital Signs Temp Pulse Resp BP Pulse Ox 98.7 F 90 19 H 93/60 97 12/07/20 21:47 12/07/20 21:47 12/07/20 21:47 12/07/20 21:47 12/07/20 21:47 Oxygen Delivery Method Room Air Weight: 172 lb Body Mass Index (BMI) 24.7 Finger Stick Blood Glucose 415 Intake and Output for Last 24 Hours 12/05/20 12/06/20 12/07/20 23:59 23:59 23:59 Intake Total 1000 / 1000 Balance 1000 / 1000 General: Alert, Oriented x3, Cooperative, No apparent distress HEENT: Atraumatic, PERRLA, EOMI, Normocephalic Oral: Dry Mucosa Neck: Supple, No JVD, Negative Carotid Bruits Lungs: Clear to auscultation, Normal air movement, No rhonchi, No wheeze Cardiovascular: Regular rate, Regular Rhythm, Normal S1, Normal S2, No murmurs Abdomen: Bowel Sounds Present, Soft, Non Tender, Non-Distended, No Hepato- splenomegaly Extremities: No clubbing, No cyanosis, No edema, Capillary Refill Less than 3 Seconds, - - LLE in podiatric boot. Skin: No rashes, No breakdown Musculoskeletal: No Tenderness to Palpation of Joints or Extremities Lymphatic: No Cervical, Supraclavicular, or Inguinal Adenopathy Neurological: Cranial nerves II-XII grossly intact, Neuro grossly intact, Motor Exam 5/5 strength throughout Psych/Mental Status: Normal Affect, Appropriate, Alert and oriented to time, place, person, mood and affect Laboratory Results 12/07/20 19:30: WBC 14.4 H, RBC 5.23, Hgb 14.6, Hct 45.0, MCV 86.0, MCH 27.9, MCHC 32.4, RDW Std Deviation 39.4, RDW Coeff of Cheri 12.4, Plt Count 391, MPV 10.3, Immature Gran % (Auto) 0.600, Neut % (Auto) 78.5 H, Lymph % (Auto) 10.7 L, [place] % (Auto) 9.5, Eos % (Auto) 0.4, Baso % (Auto) 0.3, Absolute Neuts (auto) 11.3 H, Absolute Lymphs (auto) 1.54, Nucleated RBC % 0 12/07/20 19:30: PT 13.7, INR 1.1, APTT 35.8 12/07/20 19:30: Sodium 128 L, Potassium 4.0, Chloride 90 L, Carbon Dioxide 30.0, Anion Gap 8, BUN 14, Creatinine 1.67 H, Estim Creat Clear Calc 47.96, Est GFR (MDRD) Af Amer 54 L, Est GFR (MDRD) Non-Af 45 L, BUN/Creatinine Ratio 8.4 L, Glucose 517 H*, Calcium 9.2, Total Bilirubin 0.60, AST 21, ALT 31, Alkaline Phosphatase 133 H, Total Protein 8.7 H, Albumin 2.7 L, Globulin 6.0 H, Albumin/Globulin Ratio 0.4 L 12/07/20 20:25: Lactic Acid 3.9 H* 12/07/20 21:03: Urine Color Yellow, Urine Clarity Turbid, Urine pH 6.5, Ur Specific [place] 1.010, Urine Protein 100 H, Urine Glucose (UA) 1000 H, Urine Ketones Negative, Urine Occult Blood 250 H, Urine Nitrite Negative, Urine Bilirubin Negative, Urine Urobilinogen Normal, Ur Leukocyte Esterase 500 H, Urine RBC 0 SEEN, Urine WBC >100 SEEN, Ur Squamous Epith Cells 0 SEEN, Urine Bacteria 0 SEEN, Urine Mucus 0 SEEN 12/07/20 21:45: POC Glucose 415 H Diagnostic Data Abdomen/Pelvis CT 12/07/20 20:41 IMPRESSION: Cholelithiasis with cystic duct stones. No biliary ductal dilatation. No pathological distention of the gallbladder lumen. No evidence for gallbladder wall thickening or pericholecystic fluid. Cholelithiasis was present on the August 06, [address] scan. The cystic duct stones may be new however since that time Bilateral adrenal nodules. The left adrenal nodule is likely a benign adenoma as to its density. That diagnosis cannot be made on the right adrenal nodule due to its density. The right adrenal that is also likely a benign adenoma. The appearance of the adrenal glands is similar to that of the August 06, 2019 study. Stability since that time and is suggestive of benignity. Individualized dose optimization techniques were used for this CT. at 2156 Reported and signed by: Tk Beard MD Electronically Signed: Tk Beard MD at 21:55 EST Tel , Service support , Current Medications Sodium Chloride () 1,000 mls @ 150 mls/hr IV .[id number] [facility] Last Admin: 12/07/20 21:47 Dose: 150 mls/hr Documented by: Sodium Chloride () 1,000 mls @ 999 mls/hr IV .Q1H1M TEDDY Stop: 12/08/20 00:00 Ceftriaxone Sodium (Rocephin) 1 gm in 50 mls @ 100 mls/hr IV X1 ONE Stop: 12/07/20 22:26 Assessment/Plan All Active Problems (Last Updated 10/03/20 @ 09:[address] Deann Calloway, DP) UTI (urinary tract infection) (Acute) Severe hyperglycemia due to diabetes mellitus (Acute) Severe sepsis (Acute) Wound of foot (Acute) Hyperglycemia (Acute) Noncompliance with medication regimen (Acute) Infection of left foot (Acute) Left foot pain (Acute) 60 y/o admitted with a complaint of dysuria #Severe sepsis due to UTI * admit to PCU * hydrate with IVF normal saline at 150cc/hr * lactic acid was 3.9, will cycle lactic per sepsis protocol * get blood and urine cultures * #lactic acidosis: will hydrate with IVF and trend lactic acid #?blood in stool * patient complains of blood in his stool * he has never had colonoscopy and EGD * check stool for occult blood; if positive, to get surgery consult * #Type 2 diabetes mellitus with hyperglycemia * blood sugar was 500 on admission; no anion gap * last A1C on 10/03/2020 was 12.8 * hydrate with IVF and trend blood sugar * #Left foot ulcer: left lower extremity in a boot. follow up with podiatry on outpatient basis DVT prophylaxis: SCDs since complains of some blood in stool Code status: full code * Patient counseled extensively about different types of CODE STATUS including full code, DNR CCA and DNR CCA. Patient elects to be full code. Total [id number] time 16 minutes. Inpatient E&M: 53224 Init Hosp L3 Procedures: 05093 Advncd Care Plan 30 Min
[2020-12-07] MEDS: 0.9% Normal Saline 1,000 ML 999 ML IV ×2 (22:35→23:37)
[2020-12-07] MEDS: Ceftriaxone 1 GM/50 ML BAG IV (22:43)
[2020-12-08] VITALS (16 sets, daily range): BP systolic 97–135; BP diastolic 54–73; PULSE 80–96; RESP 10–22; TEMP 36.7–36.9; O2SAT 95–100
[2020-12-08 00:30] LABS: Reflex Lactate? Y
[2020-12-08] MEDS: 0.9% Normal Saline 1,000 ML 150 ML IV (01:13)
[2020-12-08 01:48] LABS: Lactic Acid 1.9 mmol/L (0.4-1.9)
[2020-12-08 04:43] LABS: Absolute Lymphocyte Count 1.66 X10^3/uL (0.83-4.51); Absolute Neutrophil Count 6.9 X10^3/uL (2.0-7.7); Basophil# 0.02 X10^3/uL; Basophil% 0.2 % (0-1); Eosinophils% 2.1 % (0-5); Hematocrit 32.9 % (40-54); Hemoglobin 11.1 g/dL (13.0-16.5); Lymphocyte # 1.66 X10^3/ul (4.0); Lymphocyte % 17.1 % (19-41); Mean Corp Hgb Conc 33.7 g/dL (32-36); Mean Corpuscular Hgb 28.3 pg (27.0-32.0); Mean Corpuscular Volume 83.9 fL (80-94); Mean Platelet Vol. 9.5 fl (6.2-12.0); Monocyte# 0.86 X10^3/uL; Monocyte% 8.9 % (0-10); NRBC Flagged by Analyzer 0 % (0-5); Neutrophil # 6.89 X10^3/uL (2.7-7.7); Neutrophil % 71.1 % (47-70); Platelet Count 269 K/mm3 (150-450); RBC Distribution Width CV 12.5 % (11.6-14.6); RBC Distribution Width SD 38.2 fl (35.1-43.9); Red Blood Count 3.92 M/mm3 (4.6-6.2); White Blood Count 9.7 K/mm3 (4.4-11.0)
[2020-12-08 05:05] LABS: Anion Gap 6 (5-15); BUN 14 mg/dL (7-18); BUN/Creat Ratio 16.3 RATIO (10-20); Calcium,Total 7.6 mg/dL (8.5-10.1); Chloride 102 mmol/L (98-107); Creatinine, Serum 0.86 mg/dL (0.70-1.30); EST Glomerular Filtration Rate 96 mL/min (>60); Est Glom Filt Rate - Afr Amer 116 mL/min (>60); Estimated Creatinine Clearance 93.14 ml/min; Glucose 246 mg/dL (74-106); Sodium Level 136 mmol/L (136-145)
--- NOTE | 2020-12-08 06:11 | PCM.CON.CC ---
Reason for Consult Date of Consultation: 12/08/20 Reason for Consultation: Severe sepsis History of Present Illness: The patient is a 60-year-old male, with a history as outlined below, who presented to the emergency department on December 07 with complaints of dysuria and hematuria. The patient also reported the presence of blood-streaked bowel movements as well. He reported that his symptoms have been present for 3 days. He denied any abdominal pain, nausea or vomiting. The patient was recently admitted to the ICU in September 2020 with severe sepsis secondary to a left lower extremity foot ulceration. The patient did undergo surgical debridement on October 04 and has been followed in the wound care as an outpatient. On presentation to the emergency department, the patient was initially noted to be afebrile, tachycardic and hemodynamically stable. He was initially documented to be saturating 94% on room air. Laboratory evaluation revealed an elevated white blood cell count of 14,000. Coagulation profile was within normal limits. Chemistry profile was notable for a sodium of 128, chloride of 90 and creatinine of 1.67. Glucose was elevated to 517. Lactate was elevated to 3.9. Urine analysis was notable for leukocyte esterase and greater than 100 white blood cells. The patient received supplemental IV fluid hydration, approximately 3 L, along with IV antimicrobials. He was subsequently admitted to the medical intensive care unit for management of severe sepsis. Overnight, the patient has remained hemodynamically stable. His lactic acidemia resolved. Potassium this morning is low at 3.0. Past Medical History Past Medical History (Chronic Problems): Chronic Problems (Last Updated 10/03/20 @ 09:[address] 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 Deann Calloway, [place]) History of pulmonary embolism Z86.711 Allergies onion Allergy (Verified 12/07/20 19:18) Food Allergy SWELLING Home Medications: Ambulatory Orders Medication Instructions Recorded Acetaminophen [Tylenol Tablet] 650 mg PO Q6H PRN PRN tab 12/08/20 Insulin Lispro [Humalog KwikPen] 8 unit SC TIDAC insuln.pen 10/06/20 Insulin Glargine [Lantus SoloStar 35 units SC QHS 12/07/20 Pen] Surgical History: - - Pins in neck Psychiatric History: No pertinent psych hx Lives: With Family Smoking Status: Former smoker Tobacco Use: Cigarettes Alcohol: None Drugs: None - *Family History Paternal History Items: - - His father from an industrial accident. Maternal History Items: - - Denies knowledge of maternal medical history Review of Systems Constitutional: Reports: Malaise, Fatigue Eyes: Denies: Blurred vision, Double vision HEENT: Denies: Head Aches, Sinus Congestion, Sinus Drainage Cardiovascular: Denies: Chest Pain, Palpitations Gastrointestinal: Reports: Hematochezia. Denies: Abdominal Pain, Diarrhea, Nausea, Vomiting Genitourinary: Reports: Dysuria, Hematuria Musculoskeletal: Denies: Joint Pain, Joint Tenderness Skin: Denies: Rash, Wounds Neurological: Denies: Numbness, Tingling, Focal weakness Psychiatric: Denies: Anxiety, Depression, Homicidal Ideations, Suicidal Ideations Hematologic/ Lymphatic: Denies: Easy Bruising, Easy Bleeding Patient Problems: Active and Suspected Problems (Last Updated 10/03/20 @ 09:[address] Deann Calloway, [facility]) UTI (urinary tract infection) (Acute) Severe hyperglycemia due to diabetes mellitus (Acute) Severe sepsis (Acute) Objective: The patient's most recent lab work, culture data and imaging studies have all been personally reviewed. Blood and urine cultures are pending. - Physical Exam Vitals/I&O's: Vital Signs Temp Pulse Resp BP Pulse Ox 98.0 F 82 18 120/69 100 12/08/20 04:00 12/08/20 05:00 12/08/20 05:00 12/08/20 05:00 12/08/20 05:00 Oxygen Flow Rate (L/min) 2 Oxygen Delivery Method Nasal Cannula Weight: 177 lb 4.026 oz Body Mass Index (BMI) 25.4 Finger Stick Blood Glucose 415 Intake and Output for Last 24 Hours 12/06/20 12/07/20 12/08/20 23:59 23:59 23:59 Intake Total 2320 / 2380 1170 / 1170 Output Total 300 / 300 Balance 2320 / 2380 870 / 870 General: Alert, Cooperative, No apparent distress HEENT: Atraumatic, PERRLA, Normocephalic Oral: No Gingival or Mucosal Lesions/ Ulcerations Neck: Supple, No Nodes, Trachea Midline Lungs: Normal air movement, No rhonchi, No wheeze, No rales Cardiovascular: Regular rate, Regular Rhythm Abdomen: Bowel Sounds Present, Soft, Non Tender Extremities: No clubbing, No cyanosis, No edema Skin: Ulcer/ Wound - Left lower extremity, present on admission, cast in place. Musculoskeletal: No Muscle Wasting Lymphatic: No Cervical, Supraclavicular, or Inguinal Adenopathy Neurological: Cranial nerves II-XII grossly intact, Neuro grossly intact Psych/Mental Status: Alert and oriented to time, place, person, mood and affect Labs (Last 48 Hours) 12/07/20 12/07/20 12/07/20 19:30 19:30 19:30 WBC 14.4 H RBC 5.23 Hgb 14.6 Hct 45.0 MCV 86.0 MCH 27.9 MCHC 32.4 RDW Std Deviation 39.4 RDW Coeff of Cheri 12.4 Plt Count 391 MPV 10.3 Immature Gran % (Auto) 0.600 Neut % (Auto) 78.5 H Lymph % (Auto) 10.7 L [place] % (Auto) 9.5 Eos % (Auto) 0.4 Baso % (Auto) 0.3 Absolute Neuts (auto) 11.3 H Absolute Lymphs (auto) 1.54 Nucleated RBC % 0 PT 13.7 INR 1.1 APTT 35.8 Sodium 128 L Potassium 4.0 Chloride 90 L Carbon Dioxide 30.0 Anion Gap 8 BUN 14 Creatinine 1.67 H Estim Creat Clear Calc 47.96 Est GFR (MDRD) Af Amer 54 L Est GFR (MDRD) Non-Af 45 L BUN/Creatinine Ratio 8.4 L Glucose 517 H* Lactic Acid Calcium 9.2 Total Bilirubin 0.60 AST 21 ALT 31 Alkaline Phosphatase 133 H Total Protein 8.7 H Albumin 2.7 L Globulin 6.0 H Albumin/Globulin Ratio 0.4 L Urine Color Urine Clarity Urine pH Ur Specific [place] Urine Protein Urine Glucose (UA) Urine Ketones Urine Occult Blood Urine Nitrite Urine Bilirubin Urine Urobilinogen Ur Leukocyte Esterase Urine RBC Urine WBC Ur Squamous Epith Cells Urine Bacteria Urine Mucus POC Glucose 12/07/20 12/07/20 12/07/20 20:25 21:03 21:45 WBC RBC Hgb Hct MCV MCH MCHC RDW Std Deviation RDW Coeff of Cheri Plt Count MPV Immature Gran % (Auto) Neut % (Auto) Lymph % (Auto) [place] % (Auto) Eos % (Auto) Baso % (Auto) Absolute Neuts (auto) Absolute Lymphs (auto) Nucleated RBC % PT INR APTT Sodium Potassium Chloride Carbon Dioxide Anion Gap BUN Creatinine Estim Creat Clear Calc Est GFR (MDRD) Af Amer Est GFR (MDRD) Non-Af BUN/Creatinine Ratio Glucose Lactic Acid 3.9 H* Calcium Total Bilirubin AST ALT Alkaline Phosphatase Total Protein Albumin Globulin Albumin/Globulin Ratio Urine Color Yellow Urine Clarity Turbid Urine pH 6.5 Ur Specific [place] 1.010 Urine Protein 100 H Urine Glucose (UA) 1000 H Urine Ketones Negative Urine Occult Blood 250 H Urine Nitrite Negative Urine Bilirubin Negative Urine Urobilinogen Normal Ur Leukocyte Esterase 500 H Urine RBC 0 SEEN Urine WBC >100 SEEN Ur Squamous Epith Cells 0 SEEN Urine Bacteria 0 SEEN Urine Mucus 0 SEEN POC Glucose 415 H 12/08/20 12/08/20 12/08/20 01:00 04:30 04:30 WBC 9.7 RBC 3.92 L Hgb 11.1 L Hct 32.9 L MCV 83.9 MCH 28.3 MCHC 33.7 RDW Std Deviation 38.2 RDW Coeff of Cheri 12.5 Plt Count 269 MPV 9.5 Immature Gran % (Auto) 0.600 Neut % (Auto) 71.1 H Lymph % (Auto) 17.1 L [place] % (Auto) 8.9 Eos % (Auto) 2.1 Baso % (Auto) 0.2 Absolute Neuts (auto) 6.9 Absolute Lymphs (auto) 1.66 Nucleated RBC % 0 PT INR APTT Sodium 136 Potassium 3.0 L Chloride 102 Carbon Dioxide 28.0 Anion Gap 6 BUN 14 Creatinine 0.86 Estim Creat Clear Calc 93.14 Est GFR (MDRD) Af Amer 116 Est GFR (MDRD) Non-Af 96 BUN/Creatinine Ratio 16.3 Glucose 246 H Lactic Acid 1.9 Calcium 7.6 L Total Bilirubin AST ALT Alkaline Phosphatase Total Protein Albumin Globulin Albumin/Globulin Ratio Urine Color Urine Clarity Urine pH Ur Specific [place] Urine Protein Urine Glucose (UA) Urine Ketones Urine Occult Blood Urine Nitrite Urine Bilirubin Urine Urobilinogen Ur Leukocyte Esterase Urine RBC Urine WBC Ur Squamous Epith Cells Urine Bacteria Urine Mucus POC Glucose Clinical Impression(s) from Imaging Studies Abdomen/Pelvis CT 12/07/20 20:41 IMPRESSION: Cholelithiasis with cystic duct stones. No biliary ductal dilatation. No pathological distention of the gallbladder lumen. No evidence for gallbladder wall thickening or pericholecystic fluid. Cholelithiasis was present on the August 06, [address] scan. The cystic duct stones may be new however since that time Bilateral adrenal nodules. The left adrenal nodule is likely a benign adenoma as to its density. That diagnosis cannot be made on the right adrenal nodule due to its density. The right adrenal that is also likely a benign adenoma. The appearance of the adrenal glands is similar to that of the August 06, 2019 study. Stability since that time and is suggestive of benignity. Individualized dose optimization techniques were used for this CT. at 2156 Reported and signed by: Tk Beard MD Electronically Signed: Tk Beard MD at 21:55 EST Tel , Service support , Current Medications Acetaminophen (Acetaminophen 325 Mg Tablet) 650 mg PO Q6H PRN PRN PRN Reason: Pain Score 1-10/Temp > 100.7 F Dextrose (Dextrose 50%-Water 25 Gm/50 Ml Disp.Syrin) 0 gm IV X1 PRN; Protocol PRN Reason: Hypoglycemia Glucagon (Glucagon 1 Mg/Ml Syringe) 1 mg IM .X1 PRN PRN Reason: Hypoglycemia Sodium Chloride () 250 mls @ 15 mls/hr IV .[id number] PRN PRN Reason: Additional IVPB Infusion Sodium Chloride () 1,000 mls @ 150 mls/hr IV .[id number] TEDDY Stop: 12/08/20 13:36 Last Admin: 12/08/20 01:13 Dose: 150 mls/hr Documented by: Ceftriaxone Sodium (Rocephin) 1 gm in 50 mls @ 100 mls/hr IV Q24@2200 TEDDY Pantoprazole Sodium 40 mg/ (Sodium Chloride) 110 mls @ 330 mls/hr IV Q24@[facility]00 [facility] Last Infusion: 12/08/20 01:32 Dose: Infused Documented by: Influenza Virus Vaccine Quadrival (Influenza Vaccine (6mos+)/Pf 0.5 Ml Syringe) 0.5 ml IM .ONCE ONE Stop: 12/08/20 10:01 Insulin Glargine (Insulin Glargine 100 Units/Ml Pen) 35 units SC QHS TEDDY Insulin Human Lispro (Insulin Lispro 100 Unit/Ml Insuln.Pen) 0 unit SC ACHS TEDDY; Protocol Ondansetron HCl (Ondansetron 4 Mg/2 Ml Vial) 4 mg IV Q8H PRN PRN PRN Reason: NAUSEA/VOMITING Sodium Chloride (0.9% Saline Lock 10 Ml Syringe) 10 - 40 ml IV UD PRN PRN Reason: SALINE FLUSH Assessment/Plan Active and Suspected Problems (Last Updated 10/03/20 @ 09:[address] Deann Calloway, DPM) UTI (urinary tract infection) (Acute) Severe hyperglycemia due to diabetes mellitus (Acute) Severe sepsis (Acute) RECOMMENDATIONS: 1. Continue empiric antimicrobials, pending finalized culture data. 2. Stop continuous supplemental IV fluids. 3. Potassium repletion as ordered. 4. Continue Lantus and sliding scale insulin coverage. 5. Continue PPI therapy. 6. Encourage incentive spirometer use and mobilize patient as tolerated. 7. The patient is medically stable for transfer out of the intensive care unit. IMPRESSIONS: 1. Severe sepsis, likely secondary to urinary tract source of infection The patient has been adequately volume resuscitated and remains hemodynamically stable. Lactic acidemia has resolved. Cultures are currently pending. Accordingly, the patient will be continued on empiric antimicrobials, with plans to de-escalate once cultures and sensitivities are reported. Continuous supplemental IV fluids can be discontinued from my perspective. 2. Acute kidney injury Likely prerenal in etiology. Creatinine has improved with volume expansion. Fluids can be discontinued at this time. Continue to monitor urine output. No current indication for renal replacement therapy. 3. Hypokalemia Electrolyte repletion as ordered. 4. Chronic left lower extremity diabetic foot ulcer/diabetes mellitus/questionable COPD and BENNIE/history of VTE Complicates care, management, recovery and prognosis. Continue home medications as indicated. Wound care consultation pending. This note was generated with Dragon dictation software. It may contain incorrect words, spelling, and punctuation that were not noted in checking the note before signing. Inpatient E&M: 42141 Init Hosp L3
--- NOTE | 2020-12-08 07:13 | PN_ITS ---
Patient Problems: Active and Suspected Problems (Last Updated 10/03/20 @ 09:[address] Deann Calloway, DPShaila) UTI (urinary tract infection) (Acute) Severe hyperglycemia due to diabetes mellitus (Acute) Severe sepsis (Acute) Subjective: Patient overnight with significant improvement with normalized blood sugars, improved vital signs and resolved lactic acid. Given patient clinical improvement decision for transition medical surgical floor this a.m. from ICU. Patient notes that dysuria has resolved and his urine color is improving and smell is less foul. Patient denies fevers, chills, nausea, emesis, abdominal pain, chest pain or dyspnea. Objective: Physical Examination: General: awake, alert, oriented x 3 and cooperative, laying in the medical surgical bed, no acute distress, notes feeling improved since initial presentation. Skin: normal color, turgor, no icterus, cyanosis. HEENT: AT/NC, EOMI, PERRLA, improving, MMM. Lungs: Diminished breath sounds, greater bases, normal effort, no rales, ronchi or wheezing. Heart: Regular rate and rhythm; no gallop, rub audible. Abdomen: soft, NTTP, only mild suprapubic discomfort which he notes is improving, ND, normal BS. Extremities: no cyanosis, clubbing, or edema. Neurological: patient awake, alert, oriented as noted; cognitive function intact ; pupils equally reactive to light and accomodation; cranial nerves II-XII grossly normal, moving all 4 extremities, no focal deficits, strength improving, mildly globally decreased likely secondary to acute presentation. Psychiatric: affect appears fatigued otherwise normal, no acute evidence of depressive or anxiety feelings. Vitals/I&O's: Vital Signs Temp Pulse Resp BP Pulse Ox 98.0 F 85 17 111/67 96 12/08/20 04:00 12/08/20 06:00 12/08/20 06:00 12/08/20 06:00 12/08/20 06:00 Oxygen Flow Rate (L/min) 2 Oxygen Delivery Method Nasal Cannula Weight: 177 lb 4.026 oz Body Mass Index (BMI) 25.4 Finger Stick Blood Glucose 415 Intake and Output for Last 24 Hours 12/06/20 12/07/20 12/08/20 23:59 23:59 23:59 Intake Total 2320 / 2380 1170 / 1170 Output Total 300 / 300 Balance 2320 / 2380 870 / 870 Laboratory Results 12/07/20 19:30: WBC 14.4 H, RBC 5.23, Hgb 14.6, Hct 45.0, MCV 86.0, MCH 27.9, MCHC 32.4, RDW Std Deviation 39.4, RDW Coeff of Cheri 12.4, Plt Count 391, MPV 10.3, Immature Gran % (Auto) 0.600, Neut % (Auto) 78.5 H, Lymph % (Auto) 10.7 L, [place] % (Auto) 9.5, Eos % (Auto) 0.4, Baso % (Auto) 0.3, Absolute Neuts (auto) 11.3 H, Absolute Lymphs (auto) 1.54, Nucleated RBC % 0 12/07/20 19:30: PT 13.7, INR 1.1, APTT 35.8 12/07/20 19:30: Sodium 128 L, Potassium 4.0, Chloride 90 L, Carbon Dioxide 30.0, Anion Gap 8, BUN 14, Creatinine 1.67 H, Estim Creat Clear Calc 47.96, Est GFR (MDRD) Af Amer 54 L, Est GFR (MDRD) Non-Af 45 L, BUN/Creatinine Ratio 8.4 L, Glucose 517 H*, Calcium 9.2, Total Bilirubin 0.60, AST 21, ALT 31, Alkaline Phosphatase 133 H, Total Protein 8.7 H, Albumin 2.7 L, Globulin 6.0 H, Albumin/Globulin Ratio 0.4 L 12/07/20 20:25: Lactic Acid 3.9 H* 12/07/20 21:03: Urine Color Yellow, Urine Clarity Turbid, Urine pH 6.5, Ur Specific [place] 1.010, Urine Protein 100 H, Urine Glucose (UA) 1000 H, Urine Ketones Negative, Urine Occult Blood 250 H, Urine Nitrite Negative, Urine Bilirubin Negative, Urine Urobilinogen Normal, Ur Leukocyte Esterase 500 H, Urine RBC 0 SEEN, Urine WBC >100 SEEN, Ur Squamous Epith Cells 0 SEEN, Urine Bacteria 0 SEEN, Urine Mucus 0 SEEN 12/07/20 21:45: POC Glucose 415 H 12/08/20 01:00: Lactic Acid 1.9 12/08/20 04:30: WBC 9.7, RBC 3.92 L, Hgb 11.1 L, Hct 32.9 L, MCV 83.9, MCH 28.3, MCHC 33.7, RDW Std Deviation 38.2, RDW Coeff of Cheri 12.5, Plt Count 269, MPV 9.5, Immature Gran % (Auto) 0.600, Neut % (Auto) 71.1 H, Lymph % (Auto) 17.1 L, [place] % (Auto) 8.9, Eos % (Auto) 2.1, Baso % (Auto) 0.2, Absolute Neuts (auto) 6.9, Absolute Lymphs (auto) 1.66, Nucleated RBC % 0 12/08/20 04:30: Sodium 136, Potassium 3.0 L, Chloride 102, Carbon Dioxide 28.0, Anion Gap 6, BUN 14, Creatinine 0.86, Estim Creat Clear Calc 93.14, Est GFR (MDRD) Af Amer 116, Est GFR (MDRD) Non-Af 96, BUN/Creatinine Ratio 16.3, Glucose 246 H, Calcium 7.6 L Current Medications Acetaminophen (Acetaminophen 325 Mg Tablet) 650 mg PO Q6H PRN PRN PRN Reason: Pain Score 1-10/Temp > 100.7 F Dextrose (Dextrose 50%-Water 25 Gm/50 Ml Disp.Syrin) 0 gm IV X1 PRN; Protocol PRN Reason: Hypoglycemia Glucagon (Glucagon 1 Mg/Ml Syringe) 1 mg IM .X1 PRN PRN Reason: Hypoglycemia Sodium Chloride () 250 mls @ 15 mls/hr IV .[id number] PRN PRN Reason: Additional IVPB Infusion Ceftriaxone Sodium (Rocephin) 1 gm in 50 mls @ 100 mls/hr IV Q24@[facility] Pantoprazole Sodium 40 mg/ (Sodium Chloride) 110 mls @ 330 mls/hr IV Q24@[facility]00 [facility] Last Infusion: 12/08/20 01:32 Dose: Infused Documented by: Potassium Chloride () 10 meq in 100 mls @ 100 mls/hr IV BOLUS Q1H [facility] Stop: 12/08/20 11:14 Influenza Virus Vaccine Quadrival (Influenza Vaccine (6mos+)/Pf 0.5 Ml Syringe) 0.5 ml IM .ONCE ONE Stop: 12/08/20 10:01 Insulin Glargine (Insulin Glargine 100 Units/Ml Pen) 35 units SC QHS TEDDY Insulin Human Lispro (Insulin Lispro 100 Unit/Ml Insuln.Pen) 0 unit SC ACHS [facility]; Protocol Ondansetron HCl (Ondansetron 4 Mg/2 Ml Vial) 4 mg IV Q8H PRN PRN PRN Reason: NAUSEA/VOMITING Potassium Chloride (Potassium Chloride 20 Meq Tablet) 40 meq PO X1 ONE Stop: 12/08/20 07:09 Sodium Chloride (0.9% Saline Lock 10 Ml Syringe) 10 - 40 ml IV UD PRN PRN Reason: SALINE FLUSH STROKE Vital Signs/Narrative: Vital Signs Temp Pulse Resp BP Pulse Ox 12/08/20 06:00 85 17 111/67 96 12/08/20 05:00 82 18 120/69 100 12/08/20 04:00 98.0 F 86 10 L 97/64 98 Medical Necessity - Tobacco Use Smoking Status: Former smoker Tobacco Use: Cigarettes Assessment/Plan All Active Problems (Last Updated 10/03/20 @ 09:[address] Deann Calloway, DP) UTI (urinary tract infection) (Acute) Severe hyperglycemia due to diabetes mellitus (Acute) Severe sepsis (Acute) Wound of foot (Acute) Hyperglycemia (Acute) Noncompliance with medication regimen (Acute) Infection of left foot (Acute) Left foot pain (Acute) The patient is a 60 y/o M w/ PMHx: Diabetes mellitus type II with neuropathy, Chronic COPD, Rheumatoid arthritis, Hx of PE who presents to the [facility] ED on 12/07/20 with history of severe dysuria x4 to 5 days with urine noted to be foul- smelling with no fever or chills at that time and patient description of possible blood-tinged stools. 1. Acute severe sepsis likely secondary to acute complicated urinary tract infection: ED evaluation with patient noted to be afebrile, tachycardic hemodynamically stable with CBC with WC 14 with left shift, sodium 128, chloride 90, creatinine 1.67 with glucose elevated to 517, lactic acid 3.9, urinalysis with elevated leukocyte esterase and greater than 100 WBCs. Patient initially admitted to the ICU however given clinical improvement planned 12/08/2020 transition medical surgical floor, lactic acid elevation resolved, continue judicious hydration, continue IV Rocephin pending urine cultures for speciation and sensitivities. 2. Questionable GI bleed: Patient noting blood-tinged stools with initial hemoglobin upon presentation 14.6, repeat 11.1 following overnight aggressive hydration given severe sepsis presentation, guaiac requested, will continue Protonix, not on any antiplatelet or anticoagulant therapy at this time, will cycle H&H's and if further drop or positive guaiac will request surgery consultation for consideration endoscopies. Currently on ADA diet however if further decrease in hemoglobin would transition to clears pending surgery evaluation. 3. Acute kidney injury: Secondary to acute presentation as noted #1. Admission BUN/Cr 14/1.67, prior baseline creatinine noted to be 0 in 8-1.0 patient hydrated overnight aggressively given acute presentation with varus of sepsis as noted #1, repeat 12/08/2020 BUN/creatinine 14/0.86, resolved. 4. Diabetes mellitus type II with hyperglycemia with polyneuropathy: Will continue home insulin regimen, ADA diet, accu checks w/ ISS, hemoglobin A1c obtained and noted to be 8.9%, may necessitate alteration of his regimen although an acute presentation likely elevated secondary to acute infection, nutrition consultation for education and teaching. 5. Hypokalemia: Admission K+ 3.0, magnesium level 1.8, supplementation K+ given, repeat level in AM. 6. DVT prophylaxis: SCDs, defer any chemoprophylaxis given questionable GI bleed as noted #2. Inpatient E&M: 65274 Subs Hosp L2
--- NOTE | 2020-12-08 07:45 | RAD_ITS ---
STUDY: X-RAY CHEST REASON FOR EXAM: Male, 60 years old. Dyspnea, severe sepsis TECHNIQUE: AP and lateral views of the chest. COMPARISON: Comparison is made with prior study dated 10/01/2019. FINDINGS: EKG electrodes are seen. Hyperinflation. There is no demonstrated pleural abnormality. Normal size heart. Normal mediastinum and josue. There is prominence of the pulmonary hilar arteries without peripheral pulmonary vascular congestion, suggesting pulmonary hypertension. Normal visualized aortic arch and descending thoracic aorta. There is demineralization of the osseous structures. Normal visualized ribs, clavicles, and shoulders. There is no demonstrated abnormality of the visualized soft tissue structures of the upper abdomen. RAD/Chest PA and Lateral IMPRESSION: Hyperinflation. The lungs are clear. Electronically Signed: Gustavo Lezama MD at 8:26 EST , Service support ,
[2020-12-08 08:10] LABS: Magnesium 1.8 mg/dL (1.6-2.6)
[2020-12-08 08:49] LABS: Hemoglobin A1c 8.9 % (3.8-5.6)
[2020-12-08 09:00] LABS: Bedside Glucose 268 mg/dL (70-110)
[2020-12-08] MEDS: Insulin Lispro 100 UNIT/ML INSULN.PEN SC ×4 (09:06→22:14)
[2020-12-08] MEDS: Potassium Chloride 10mEq/100mL 10 MEQ/100 ML IV.SOLN. 100 MEQ IV BOLUS ×4 (09:10→13:02)
--- NOTE | 2020-12-08 09:43 | CASEMGMT ---
RN CM Assessment Note Introduced role of CM to patient in room. Patient is awake, alert and able to participate in assessment. Demographics, PCP verified. Pt states after he left [facility] he was staying with his cousin. He states he was compliant following up with Dr. Calloway for his foot care. He states he will be going to [facility] on Monday for PCP follow up appointment. Pt states the address listed is an apartment being arranged for him. He states it will be ready for him to move into on discharge. Presentation: Patient with hematuria and blood in stool. No anticoagulants prior to admission Diagnosis: severe sepsis, UTI PCP: [facility] Specialists: Dr. Calloway Insurance: [facility] Preferred Pharmacy: [email or web address] Prescription Benefit: yes LNOK: Friend Alondra Merritt Living Arrangements: Will be able to move into an apartment on discharge. He states he is getting around without difficulty, is able to complete own ADL's and make meals. Tranportation: He drives, has a truck which is being repaired. DME: cane, rollator, blood glucose monitoring equipment HHC: none SNF: [facility] in September. Discharged 11/06/20. Patient DC Goals: DC Plan: Anticipate home to apartment on discharge. CM available for discharge planning coordination. Contact CM for any concerns/needs that may arise. Ethel ROSENBAUM RN ACM
--- NOTE | 2020-12-08 10:21 | CASEMGMT ---
SW received referral that pt in need of resources for housing, food, and med assist. SW met w/pt in room. Pt confirmed what he had told CM, that he is in the process of moving. Pt states he has food and does not need assist with this, also has prescription coverage and does not need assist with this. SW also brought in information on [employer] taxi passes, pt has a truck that is being repaired. SW offered information on [employer], pt is familiar with [employer] and knows how to access their services if needed. Pt also does not need information on [facility], plans already to follow up there. No further social service needs anticipated at this time, SW remains available should any other needs arise. MASSIEL Crisostomo
[2020-12-08 11:05] LABS: Bedside Glucose 315 mg/dL (70-110)
[2020-12-08 13:05] LABS: Hematocrit 34.3 % (40-54)
[2020-12-08] MEDS: 0.9% Saline Lock 10 ML Syringe IV ×3 (13:51→18:20)
--- NOTE | 2020-12-08 13:58 | CASEMGMT ---
Addendum entered by Marine Martin 12/08/20 16:29: Call received back from [facility]. They are unable to accept pt d/t staffing. Addendum entered by Marine Martin 12/08/20 15:25: Call received back from Greg @ [facility]. He states pt's [facility] is not in-network with them and they are unable to accept pt. Call placed to [facility] and spoke kyle/Michelle. They do not have staffing to cover pt's area. Call placed to [facility] and spoke kyle/Isamar and referral made for SN, PT/OT and SW. She was made aware pt may be ready for discharge tomorrow. Referral packet faxed to [facility] at this time. Contact number for Sandra Bravo, who will be RN CM for pt tomorrow, given to [facility] to f/u with re: acceptance and for any questions. Original Note: RN CM NOTE: Spoke kyle/alvin, who has evaluated pt, and they are recommending additional therapy. RN CM to room to talk with pt. Pt confirms that he does not want to go to a SNF, he wants to go home. Discussed HHC and he is agreeable. Offered pt a list of local [facility] agencies but he declines, stating, It doesn't matter to me. Just pick one-as long as my insurance will cover it. Pt stated he would like therapy and an aide to clean my house. Pt made aware the aide under skilled level of care does not do cleaning/cooking/tobacco sampler, only bathing/dressing. He states he does not want an aide, as he feels he is able to bath/dress himself without difficulty. Pt is agreeable to SW and SN as well. Call placed to cheryl Garza liaison @ [facility] and referral made. Facesheet/insurance information faxed to him at this time. He states will check on insurance information and return call to this RN CM shortly. Rakesh ROSENBAUM RN, CM
[2020-12-08 16:06] LABS: Hematocrit 36.9 % (40-54); Hemoglobin 11.8 g/dL (13.0-16.5)
[2020-12-08 16:16] LABS: Bedside Glucose 259 mg/dL (70-110)
--- NOTE | 2020-12-08 20:27 | PCM.RX.CS ---
Consult Pharmacy has been consulted to manage selected antiobiotic: Vancomycin Type of Consult: New start Suspected Infection: Sepsis Labs: Sodium 136 mmol/L (136-145) 12/08/20 04:30 Potassium 3.0 mmol/L (3.5-5.1) L 12/08/20 04:30 Chloride 102 mmol/L (98-107) 12/08/20 04:30 Carbon Dioxide 28.0 mmol/L (21.0-32.0) 12/08/20 04:30 Anion Gap 6 (5-15) 12/08/20 04:30 BUN 14 mg/dL (7-18) 12/08/20 04:30 Creatinine 0.86 mg/dL (0.70-1.30) 12/08/20 04:30 Est GFR (MDRD) Af Amer 116 mL/min (>60) 12/08/20 04:30 Est GFR (MDRD) Non-Af 96 mL/min (>60) 12/08/20 04:30 BUN/Creatinine Ratio 16.3 RATIO (10-20) 12/08/20 04:30 Glucose 246 mg/dL (74-106) H 12/08/20 04:30 Microbiology: Microbiology 12/07/20 20:35 Blood Culture (Wb) - Anticubital Left Bacteria Detection (PCR) - Preliminary 12/07/20 20:35 Blood Culture (Wb) - Anticubital Left Blood Culture - Preliminary 12/07/20 21:03 Urine, Clean Catch Urine Culture - Preliminary Gram negative anselmo Goal Trough: 15-20 mcg/mL Pharmacy Plan for Drug Dosing: NEW START IV VANCOMYCIN Consulting Physician: White Indication: sepsis Goal Trough: 15-20 SrCr: 0.86 (decreased from 1.67) CrCl: 93ml/min Comments: received a 2000mg dose 12/08/20 at 1820 Vancomcyin Dose: per dosing protocol, recommend Vancomycin 1750mg q12h starting 12/09/20 at 0600 Pending Level: 12/10/20 at 0530 Pharmacy Service will continue to monitor and adjust dosing as required. Follow-Up Labs: Trough Vancomycin - 12/10/20 at 0530
[2020-12-08] MEDS: Ceftriaxone 1 GM/50 ML BAG IV (22:07)
[2020-12-08 22:41] LABS: Bedside Glucose 367 mg/dL (70-110)
[2020-12-09] VITALS (11 sets, daily range): BP systolic 112–135; BP diastolic 68–71; PULSE 81–102; RESP 16–18; TEMP 36.5–37.1; O2SAT 95–100
--- NOTE | 2020-12-09 02:41 | NURSING ---
Noted foul smell coming from patient's hard cast on left lower leg. Unable to visualize wound or patient's toes due to cast. Pt denies peripheral neuropathy in the left left and stated he had no pain. Discoloration noted on the heel of the cast - brown/green in color. Pt advised he usually sees the [facility] weekly where the cast is removed, wound dressed and cast replaced. Pt stated he missed last Monday's appointment as he was unwell. Handed off by bebeto MARSH that pt due to see Wound Center today.
[2020-12-09] MEDS: Acetaminophen 325 MG Tablet 650 MG PO (04:08)
[2020-12-09 05:28] LABS: Absolute Lymphocyte Count 1.72 X10^3/uL (0.83-4.51); Absolute Neutrophil Count 7.3 X10^3/uL (2.0-7.7); Basophil# 0.04 X10^3/uL; Basophil% 0.4 % (0-1); Eosinophil# 0.27 X10^3/uL; Eosinophils% 2.7 % (0-5); Hematocrit 38.6 % (40-54); Hemoglobin 12.5 g/dL (13.0-16.5); Lymphocyte # 1.72 X10^3/ul (4.0); Mean Corp Hgb Conc 32.4 g/dL (32-36); Mean Corpuscular Hgb 27.5 pg (27.0-32.0); Mean Platelet Vol. 9.3 fl (6.2-12.0); Monocyte# 0.73 X10^3/uL; Monocyte% 7.2 % (0-10); NRBC Flagged by Analyzer 0 % (0-5); Neutrophil % 72.2 % (47-70); Platelet Count 316 K/mm3 (150-450); RBC Distribution Width CV 12.5 % (11.6-14.6); Red Blood Count 4.54 M/mm3 (4.6-6.2); White Blood Count 10.1 K/mm3 (4.4-11.0)
[2020-12-09 05:54] LABS: ALB/GLOB Ratio 0.4 RATIO (0.9-2.4); AST(SGOT) 19 U/L (15-37); Alanine Aminotransfer ALT/SGPT 27 U/L (16-61); Albumin, Serum 2.1 g/dL (3.2-5.0); Alkaline Phosphatase 107 U/L (45-117); Anion Gap 4 (5-15); BUN 16 mg/dL (7-18); BUN/Creat Ratio 19.8 RATIO (10-20); Calcium,Total 8.5 mg/dL (8.5-10.1); Chloride 101 mmol/L (98-107); Creatinine, Serum 0.81 mg/dL (0.70-1.30); EST Glomerular Filtration Rate 103 mL/min (>60); Est Glom Filt Rate - Afr Amer 125 mL/min (>60); Estimated Creatinine Clearance 98.89 ml/min; Globulin 4.9 g/dL (2.2-4.2); Glucose 177 mg/dL (74-106); Potassium 3.9 mmol/L (3.5-5.1); Sodium Level 134 mmol/L (136-145)
[2020-12-09] MEDS: Insulin Lispro 100 UNIT/ML INSULN.PEN SC ×4 (06:31→21:05)
[2020-12-09 06:40] LABS: Bedside Glucose 190 mg/dL (70-110)
--- NOTE | 2020-12-09 06:53 | PCM.PN.PUL ---
Patient Problems: Active and Suspected Problems (Last Updated 10/03/20 @ 09:[address] Deann Calloway, [place]) UTI (urinary tract infection) (Acute) Severe hyperglycemia due to diabetes mellitus (Acute) Severe sepsis (Acute) Subjective: The patient was seen and examined at the bedside this morning. Events from the last 24 hours have been reviewed. The patient is currently afebrile, hemodynamically stable and maintaining appropriate oxygen saturations on room air. The patient has done well clinically following transfer out of the medical intensive care unit yesterday. The patient's blood counts remain stable. He is currently documented to be overall net +1.3 L for the hospital admission. Objective: The patient's most recent lab work, culture data and imaging studies have all been personally reviewed. Urine Gram stain was positive for gram-negative anselmo. - Physical Exam Vitals/I&O's: Vital Signs Temp Pulse Resp BP Pulse Ox 98.8 F 87 18 123/69 H 96 12/09/20 02:34 12/09/20 05:59 12/09/20 02:34 12/09/20 02:34 12/09/20 02:34 Oxygen Flow Rate (L/min) 2 Oxygen Delivery Method Room Air Weight: 178 lb 12.718 oz Body Mass Index (BMI) 25.4 Finger Stick Blood Glucose 415 Intake and Output for Last 24 Hours 12/07/20 12/08/20 12/09/20 23:59 23:59 23:59 Intake Total 2320 / 2380 3594.17 / 3644.17 210.75 / 210.75 Output Total 1800 / 2850 2950 / 2950 Balance 2320 / 2380 1794.17 / 794.17 -2739.25 / -2739.25 General: Alert, Cooperative HEENT: Atraumatic, Normocephalic Oral: Moist Mucosa, No Gingival or Mucosal Lesions/ Ulcerations Neck: Supple, No Nodes, Trachea Midline Lungs: No rhonchi, No wheeze, No rales Cardiovascular: Regular rate, Regular Rhythm Abdomen: Bowel Sounds Present, Soft, Non Tender Extremities: No clubbing, No cyanosis Skin: - - No significant change from previous Musculoskeletal: No Muscle Wasting Lymphatic: No Cervical, Supraclavicular, or Inguinal Adenopathy Neurological: Cranial nerves II-XII grossly intact, Neuro grossly intact Psych/Mental Status: Normal Affect, Appropriate Labs (Last 48 Hours) 12/07/20 12/07/20 12/07/20 19:30 19:30 19:30 WBC 14.4 H RBC 5.23 Hgb 14.6 Hct 45.0 MCV 86.0 MCH 27.9 MCHC 32.4 RDW Std Deviation 39.4 RDW Coeff of Cheri 12.4 Plt Count 391 MPV 10.3 Immature Gran % (Auto) 0.600 Neut % (Auto) 78.5 H Lymph % (Auto) 10.7 L [place] % (Auto) 9.5 Eos % (Auto) 0.4 Baso % (Auto) 0.3 Absolute Neuts (auto) 11.3 H Absolute Lymphs (auto) 1.54 Nucleated RBC % 0 PT 13.7 INR 1.1 APTT 35.8 Sodium 128 L Potassium 4.0 Chloride 90 L Carbon Dioxide 30.0 Anion Gap 8 BUN 14 Creatinine 1.67 H Estim Creat Clear Calc 47.96 Est GFR (MDRD) Af Amer 54 L Est GFR (MDRD) Non-Af 45 L BUN/Creatinine Ratio 8.4 L Glucose 517 H* Hemoglobin A1c Lactic Acid Calcium 9.2 Magnesium Total Bilirubin 0.60 AST 21 ALT 31 Alkaline Phosphatase 133 H Total Protein 8.7 H Albumin 2.7 L Globulin 6.0 H Albumin/Globulin Ratio 0.4 L Urine Color Urine Clarity Urine pH Ur Specific [place] Urine Protein Urine Glucose (UA) Urine Ketones Urine Occult Blood Urine Nitrite Urine Bilirubin Urine Urobilinogen Ur Leukocyte Esterase Urine RBC Urine WBC Ur Squamous Epith Cells Urine Bacteria Urine Mucus POC Glucose 12/07/20 12/07/20 12/07/20 20:25 21:03 21:45 WBC RBC Hgb Hct MCV MCH MCHC RDW Std Deviation RDW Coeff of Cheri Plt Count MPV Immature Gran % (Auto) Neut % (Auto) Lymph % (Auto) [place] % (Auto) Eos % (Auto) Baso % (Auto) Absolute Neuts (auto) Absolute Lymphs (auto) Nucleated RBC % PT INR APTT Sodium Potassium Chloride Carbon Dioxide Anion Gap BUN Creatinine Estim Creat Clear Calc Est GFR (MDRD) Af Amer Est GFR (MDRD) Non-Af BUN/Creatinine Ratio Glucose Hemoglobin A1c Lactic Acid 3.9 H* Calcium Magnesium Total Bilirubin AST ALT Alkaline Phosphatase Total Protein Albumin Globulin Albumin/Globulin Ratio Urine Color Yellow Urine Clarity Turbid Urine pH 6.5 Ur Specific [place] 1.010 Urine Protein 100 H Urine Glucose (UA) 1000 H Urine Ketones Negative Urine Occult Blood 250 H Urine Nitrite Negative Urine Bilirubin Negative Urine Urobilinogen Normal Ur Leukocyte Esterase 500 H Urine RBC 0 SEEN Urine WBC >100 SEEN Ur Squamous Epith Cells 0 SEEN Urine Bacteria 0 SEEN Urine Mucus 0 SEEN POC Glucose 415 H 12/08/20 12/08/20 12/08/20 01:00 04:30 04:30 WBC 9.7 RBC 3.92 L Hgb 11.1 L Hct 32.9 L MCV 83.9 MCH 28.3 MCHC 33.7 RDW Std Deviation 38.2 RDW Coeff of Cheri 12.5 Plt Count 269 MPV 9.5 Immature Gran % (Auto) 0.600 Neut % (Auto) 71.1 H Lymph % (Auto) 17.1 L [place] % (Auto) 8.9 Eos % (Auto) 2.1 Baso % (Auto) 0.2 Absolute Neuts (auto) 6.9 Absolute Lymphs (auto) 1.66 Nucleated RBC % 0 PT INR APTT Sodium 136 Potassium 3.0 L Chloride 102 Carbon Dioxide 28.0 Anion Gap 6 BUN 14 Creatinine 0.86 Estim Creat Clear Calc 93.14 Est GFR (MDRD) Af Amer 116 Est GFR (MDRD) Non-Af 96 BUN/Creatinine Ratio 16.3 Glucose 246 H Hemoglobin A1c Lactic Acid 1.9 Calcium 7.6 L Magnesium Total Bilirubin AST ALT Alkaline Phosphatase Total Protein Albumin Globulin Albumin/Globulin Ratio Urine Color Urine Clarity Urine pH Ur Specific [place] Urine Protein Urine Glucose (UA) Urine Ketones Urine Occult Blood Urine Nitrite Urine Bilirubin Urine Urobilinogen Ur Leukocyte Esterase Urine RBC Urine WBC Ur Squamous Epith Cells Urine Bacteria Urine Mucus POC Glucose 12/08/20 12/08/20 12/08/20 04:30 04:30 08:55 WBC RBC Hgb Hct MCV MCH MCHC RDW Std Deviation RDW Coeff of Cheri Plt Count MPV Immature Gran % (Auto) Neut % (Auto) Lymph % (Auto) [place] % (Auto) Eos % (Auto) Baso % (Auto) Absolute Neuts (auto) Absolute Lymphs (auto) Nucleated RBC % PT INR APTT Sodium Potassium Chloride Carbon Dioxide Anion Gap BUN Creatinine Estim Creat Clear Calc Est GFR (MDRD) Af Amer Est GFR (MDRD) Non-Af BUN/Creatinine Ratio Glucose Hemoglobin A1c 8.9 H Lactic Acid Calcium Magnesium 1.8 Total Bilirubin AST ALT Alkaline Phosphatase Total Protein Albumin Globulin Albumin/Globulin Ratio Urine Color Urine Clarity Urine pH Ur Specific [place] Urine Protein Urine Glucose (UA) Urine Ketones Urine Occult Blood Urine Nitrite Urine Bilirubin Urine Urobilinogen Ur Leukocyte Esterase Urine RBC Urine WBC Ur Squamous Epith Cells Urine Bacteria Urine Mucus POC Glucose 268 H 12/08/20 12/08/20 12/08/20 10:56 12:55 16:00 WBC RBC Hgb 11.0 L 11.8 L Hct 34.3 L 36.9 L MCV MCH MCHC RDW Std Deviation RDW Coeff of Cheri Plt Count MPV Immature Gran % (Auto) Neut % (Auto) Lymph % (Auto) [place] % (Auto) Eos % (Auto) Baso % (Auto) Absolute Neuts (auto) Absolute Lymphs (auto) Nucleated RBC % PT INR APTT Sodium Potassium Chloride Carbon Dioxide Anion Gap BUN Creatinine Estim Creat Clear Calc Est GFR (MDRD) Af Amer Est GFR (MDRD) Non-Af BUN/Creatinine Ratio Glucose Hemoglobin A1c Lactic Acid Calcium Magnesium Total Bilirubin AST ALT Alkaline Phosphatase Total Protein Albumin Globulin Albumin/Globulin Ratio Urine Color Urine Clarity Urine pH Ur Specific [place] Urine Protein Urine Glucose (UA) Urine Ketones Urine Occult Blood Urine Nitrite Urine Bilirubin Urine Urobilinogen Ur Leukocyte Esterase Urine RBC Urine WBC Ur Squamous Epith Cells Urine Bacteria Urine Mucus POC Glucose 315 H 12/08/20 12/08/20 12/09/20 16:03 22:13 05:20 WBC 10.1 RBC 4.54 L Hgb 12.5 L Hct 38.6 L MCV 85.0 MCH 27.5 MCHC 32.4 RDW Std Deviation 39.0 RDW Coeff of Cheri 12.5 Plt Count 316 MPV 9.3 Immature Gran % (Auto) 0.500 Neut % (Auto) 72.2 H Lymph % (Auto) 17.0 L [place] % (Auto) 7.2 Eos % (Auto) 2.7 Baso % (Auto) 0.4 Absolute Neuts (auto) 7.3 Absolute Lymphs (auto) 1.72 Nucleated RBC % 0 PT INR APTT Sodium Potassium Chloride Carbon Dioxide Anion Gap BUN Creatinine Estim Creat Clear Calc Est GFR (MDRD) Af Amer Est GFR (MDRD) Non-Af BUN/Creatinine Ratio Glucose Hemoglobin A1c Lactic Acid Calcium Magnesium Total Bilirubin AST ALT Alkaline Phosphatase Total Protein Albumin Globulin Albumin/Globulin Ratio Urine Color Urine Clarity Urine pH Ur Specific [place] Urine Protein Urine Glucose (UA) Urine Ketones Urine Occult Blood Urine Nitrite Urine Bilirubin Urine Urobilinogen Ur Leukocyte Esterase Urine RBC Urine WBC Ur Squamous Epith Cells Urine Bacteria Urine Mucus POC Glucose 259 H 367 H 12/09/20 12/09/20 05:20 06:29 WBC RBC Hgb Hct MCV MCH MCHC RDW Std Deviation RDW Coeff of Cheri Plt Count MPV Immature Gran % (Auto) Neut % (Auto) Lymph % (Auto) [place] % (Auto) Eos % (Auto) Baso % (Auto) Absolute Neuts (auto) Absolute Lymphs (auto) Nucleated RBC % PT INR APTT Sodium 134 L Potassium 3.9 Chloride 101 Carbon Dioxide 29.0 Anion Gap 4 L BUN 16 Creatinine 0.81 Estim Creat Clear Calc 98.89 Est GFR (MDRD) Af Amer 125 Est GFR (MDRD) Non-Af 103 BUN/Creatinine Ratio 19.8 Glucose 177 H Hemoglobin A1c Lactic Acid Calcium 8.5 Magnesium Total Bilirubin 0.30 AST 19 ALT 27 Alkaline Phosphatase 107 Total Protein 7.0 Albumin 2.1 L Globulin 4.9 H Albumin/Globulin Ratio 0.4 L Urine Color Urine Clarity Urine pH Ur Specific [place] Urine Protein Urine Glucose (UA) Urine Ketones Urine Occult Blood Urine Nitrite Urine Bilirubin Urine Urobilinogen Ur Leukocyte Esterase Urine RBC Urine WBC Ur Squamous Epith Cells Urine Bacteria Urine Mucus POC Glucose 190 H Microbiology 12/07/20 20:35 Blood Culture (Wb) - Anticubital Left Bacteria Detection (PCR) - Preliminary 12/07/20 20:35 Blood Culture (Wb) - Anticubital Left Blood Culture - Preliminary 12/07/20 21:03 Urine, Clean Catch Urine Culture - Preliminary Gram negative anselmo Clinical Impression(s) from Imaging Studies Abdomen/Pelvis CT 12/07/20 20:41 IMPRESSION: Cholelithiasis with cystic duct stones. No biliary ductal dilatation. No pathological distention of the gallbladder lumen. No evidence for gallbladder wall thickening or pericholecystic fluid. Cholelithiasis was present on the August 06, [address] scan. The cystic duct stones may be new however since that time Bilateral adrenal nodules. The left adrenal nodule is likely a benign adenoma as to its density. That diagnosis cannot be made on the right adrenal nodule due to its density. The right adrenal that is also likely a benign adenoma. The appearance of the adrenal glands is similar to that of the August 06, 2019 study. Stability since that time and is suggestive of benignity. Individualized dose optimization techniques were used for this CT. at 2156 Reported and signed by: Tk Beard MD Electronically Signed: Tk Beard MD at 21:55 EST Tel , Service support , Chest X-Ray 12/08/20 07:45 IMPRESSION: Hyperinflation. The lungs are clear. Electronically Signed: Gustavo Lezama MD at 8:26 EST , Service support , Current Medications Acetaminophen (Acetaminophen 325 Mg Tablet) 650 mg PO Q6H PRN PRN PRN Reason: Pain Score 1-10/Temp > 100.7 F Last Admin: 12/09/20 04:08 Dose: 650 mg Documented by: Dextrose (Dextrose 50%-Water 25 Gm/50 Ml Disp.Syrin) 0 gm IV X1 PRN; Protocol PRN Reason: Hypoglycemia Glucagon (Glucagon 1 Mg/Ml Syringe) 1 mg IM .X1 PRN PRN Reason: Hypoglycemia Hydralazine HCl (Hydralazine 20 Mg/Ml Vial) 10 mg IV Q4H PRN PRN PRN Reason: SBP > 160 Sodium Chloride () 250 mls @ 15 mls/hr IV .[id number] PRN PRN Reason: Additional IVPB Infusion Last Infusion: 12/09/20 06:24 Dose: 0 mls/hr Documented by: Ceftriaxone Sodium (Rocephin) 1 gm in 50 mls @ 100 mls/hr IV Q24@2200 [facility] Last Infusion: 12/08/20 23:01 Dose: Infused Documented by: Pantoprazole Sodium 40 mg/ (Sodium Chloride) 110 mls @ 330 mls/hr IV Q24@2200 [facility] Last Infusion: 12/08/20 22:30 Dose: Infused Documented by: Vancomycin IV Pharmacy to Dose (1 ea/ Sodium Chloride) 500 mls @ 250 mls/hr IV X1 PRN; Protocol PRN Reason: Rx to Dose Vancomycin HCl 1,750 mg/ (Sodium Chloride) 535 mls @ 250 mls/hr IV Q12H [facility] Last Admin: 12/09/20 06:24 Dose: 250 mls/hr Documented by: Insulin Glargine (Insulin Glargine 100 Units/Ml Pen) 35 units SC QHS [facility] Last Admin: 12/08/20 22:10 Dose: 35 unit Documented by: Insulin Human Lispro (Insulin Lispro 100 Unit/Ml Insuln.Pen) 0 unit SC ACHS TEDDY; Protocol Last Admin: 12/09/20 06:31 Dose: 3 u Documented by: Nutritional Formula (Lactose Free) (Glucerna Shake 120 Ml Liquid) 120 ml PO 4X/DAY TEDDY Ondansetron HCl (Ondansetron 4 Mg/2 Ml Vial) 4 mg IV Q8H PRN PRN PRN Reason: NAUSEA/VOMITING Sodium Chloride (0.9% Saline Lock 10 Ml Syringe) 10 - 40 ml IV UD PRN PRN Reason: SALINE FLUSH Last Admin: 12/08/20 18:20 Dose: 10 ml Documented by: Medical Necessity - Tobacco Use Smoking Status: Former smoker Tobacco Use: Cigarettes Assessment/Plan All Active Problems (Last Updated 10/03/20 @ 09:[address] Deann Calloway, DP) UTI (urinary tract infection) (Acute) Severe hyperglycemia due to diabetes mellitus (Acute) Severe sepsis (Acute) Wound of foot (Acute) Hyperglycemia (Acute) Noncompliance with medication regimen (Acute) Infection of left foot (Acute) Left foot pain (Acute) RECOMMENDATIONS: 1. Continue antimicrobials, pending finalized culture data. 2. Continue Lantus and sliding scale insulin coverage. 3. Continue PPI therapy. 4. Encourage incentive spirometer use and mobilize patient as tolerated. 5. Given the patient's lack of further ICU or pulmonary needs, will sign off. Please call with any additional questions. IMPRESSIONS: 1. Severe sepsis, likely secondary to urinary tract source of infection The patient has been adequately volume resuscitated and remains hemodynamically stable. Lactic acidemia has resolved. Urine Gram stain was positive for gram-negative anselmo. Accordingly, the patient will be continued on empiric antimicrobials, with plans to de-escalate once sensitivities are reported. 2. Acute kidney injury Resolved. Likely prerenal in etiology. Creatinine has improved with volume expansion. Continue to monitor urine output. No current indication for renal replacement therapy. 3. Chronic left lower extremity diabetic foot ulcer/diabetes mellitus/questionable COPD and BENNIE/history of VTE Complicates care, management, recovery and prognosis. Continue home medications as indicated. Wound care is following. This note was generated with ERN dictation software. It may contain incorrect words, spelling, and punctuation that were not noted in checking the note before signing. Inpatient E&M: 50038 Subs Hosp L2
--- NOTE | 2020-12-09 07:11 | PCM.PN.HOSP ---
Patient Problems: Active and Suspected Problems (Last Updated 10/03/20 @ 09:[address] Deann Calloway, DPShaila) UTI (urinary tract infection) (Acute) Severe hyperglycemia due to diabetes mellitus (Acute) Severe sepsis (Acute) Subjective: Patient overnight with no acute events per self and per nursing report. He does note feeling improved just fatigued. He notes he was supposed to have his casting per C/Podiatry off ~ a week prior but secondary to feeling poorly did not present for his usual visit. Patient understands plan of care which involves podiatry evaluation, taking off the cast, discussed vancomycin addition the day prior secondary to 1 of 2+ blood cultures although could be contaminant but given foot and awaiting podiatry evaluation vancomycin added. Patient denies fevers, chills, nausea, emesis, abdominal pain, chest pain or dyspnea. Objective: Physical Examination: General: awake, alert, oriented x 3 and cooperative, laying in the medical surgical bed, no acute distress. Skin: normal color, turgor, no icterus, cyanosis except unable to discern any changes to left lower extremity given casting still in place, awaiting podiatry for takedown.. HEENT: AT/NC, EOMI, PERRLA, MMM. Lungs: Diminished breath sounds, greater bases, normal effort, no rales, ronchi or wheezing. Heart: Regular rate and rhythm; no gallop, rub audible. Abdomen: soft, NTTP, resolved prior suprapubic discomfort, ND, normal BS. Extremities: no cyanosis or clubbing, left casting still in place, worsened odor, awaiting podiatry for takedown. Neurological: patient awake, alert, oriented as noted; cognitive function intact; pupils equally reactive to light and accomodation; cranial nerves II-XII grossly normal, moving all 4 extremities, no focal deficits, strength improving, mildly globally decreased likely secondary to acute presentation. Psychiatric: affect appears fatigued otherwise normal, no acute evidence of depressive or anxiety feelings. Vitals/I&O's: Vital Signs Temp Pulse Resp BP Pulse Ox 98.8 F 87 18 123/69 H 96 12/09/20 02:34 12/09/20 05:59 12/09/20 02:34 12/09/20 02:34 12/09/20 02:34 Oxygen Flow Rate (L/min) 2 Oxygen Delivery Method Room Air Weight: 178 lb 12.718 oz Body Mass Index (BMI) 25.4 Finger Stick Blood Glucose 415 Intake and Output for Last 24 Hours 12/07/20 12/08/20 12/09/20 23:59 23:59 23:59 Intake Total 2320 / 2380 3594.17 / 3644.17 210.75 / 210.75 Output Total 1800 / 2850 2950 / 2950 Balance 2320 / 2380 1794.17 / 794.17 -2739.25 / -2739.25 Microbiology Past 72 Hours 12/07/20 20:35 Blood Culture (Wb) - Anticubital Left Bacteria Detection (PCR) - Preliminary 12/07/20 20:35 Blood Culture (Wb) - Anticubital Left Blood Culture - Preliminary 12/07/20 21:03 Urine, Clean Catch Urine Culture - Preliminary Gram negative anselmo Laboratory Results 12/08/20 04:30: Magnesium 1.8 12/08/20 04:30: Hemoglobin A1c 8.9 H 12/08/20 08:55: POC Glucose 268 H 12/08/20 10:56: POC Glucose 315 H 12/08/20 12:55: Hgb 11.0 L, Hct 34.3 L 12/08/20 16:00: Hgb 11.8 L, Hct 36.9 L 12/08/20 16:03: POC Glucose 259 H 12/08/20 22:13: POC Glucose 367 H 12/09/20 05:20: WBC 10.1, RBC 4.54 L, Hgb 12.5 L, Hct 38.6 L, MCV 85.0, MCH 27.5, MCHC 32.4, RDW Std Deviation 39.0, RDW Coeff of Cheri 12.5, Plt Count 316, MPV 9.3, Immature Gran % (Auto) 0.500, Neut % (Auto) 72.2 H, Lymph % (Auto) 17.0 L, Motley % (Auto) 7.2, Eos % (Auto) 2.7, Baso % (Auto) 0.4, Absolute Neuts (auto) 7.3, Absolute Lymphs (auto) 1.72, Nucleated RBC % 0 12/09/20 05:20: Sodium 134 L, Potassium 3.9, Chloride 101, Carbon Dioxide 29.0, Anion Gap 4 L, BUN 16, Creatinine 0.81, Estim Creat Clear Calc 98.89, Est GFR (MDRD) Af Amer 125, Est GFR (MDRD) Non-Af 103, BUN/Creatinine Ratio 19.8, Glucose 177 H, Calcium 8.5, Total Bilirubin 0.30, AST 19, ALT 27, Alkaline Phosphatase 107, Total Protein 7.0, Albumin 2.1 L, Globulin 4.9 H, Albumin/Globulin Ratio 0.4 L 12/09/20 06:29: POC Glucose 190 H Current Medications Acetaminophen (Acetaminophen 325 Mg Tablet) 650 mg PO Q6H PRN PRN PRN Reason: Pain Score 1-10/Temp > 100.7 F Last Admin: 12/09/20 04:08 Dose: 650 mg Documented by: Dextrose (Dextrose 50%-Water 25 Gm/50 Ml Disp.Syrin) 0 gm IV X1 PRN; Protocol PRN Reason: Hypoglycemia Glucagon (Glucagon 1 Mg/Ml Syringe) 1 mg IM .X1 PRN PRN Reason: Hypoglycemia Hydralazine HCl (Hydralazine 20 Mg/Ml Vial) 10 mg IV Q4H PRN PRN PRN Reason: SBP > 160 Sodium Chloride () 250 mls @ 15 mls/hr IV .[id number] PRN PRN Reason: Additional IVPB Infusion Last Infusion: 12/09/20 06:24 Dose: 0 mls/hr Documented by: Ceftriaxone Sodium (Rocephin) 1 gm in 50 mls @ 100 mls/hr IV Q24@2200 [facility] Last Infusion: 12/08/20 23:01 Dose: Infused Documented by: Pantoprazole Sodium 40 mg/ (Sodium Chloride) 110 mls @ 330 mls/hr IV Q24@2200 [facility] Last Infusion: 12/08/20 22:30 Dose: Infused Documented by: Vancomycin IV Pharmacy to Dose (1 ea/ Sodium Chloride) 500 mls @ 250 mls/hr IV X1 PRN; Protocol PRN Reason: Rx to Dose Vancomycin HCl 1,750 mg/ (Sodium Chloride) 535 mls @ 250 mls/hr IV Q12H [facility] Last Admin: 12/09/20 06:24 Dose: 250 mls/hr Documented by: Insulin Glargine (Insulin Glargine 100 Units/Ml Pen) 35 units SC QHS [facility] Last Admin: 12/08/20 22:10 Dose: 35 unit Documented by: Insulin Human Lispro (Insulin Lispro 100 Unit/Ml Insuln.Pen) 0 unit SC ACHS [facility]; Protocol Last Admin: 12/09/20 06:31 Dose: 3 u Documented by: Nutritional Formula (Lactose Free) (Glucerna Shake 120 Ml Liquid) 120 ml PO 4X/DAY TEDDY Ondansetron HCl (Ondansetron 4 Mg/2 Ml Vial) 4 mg IV Q8H PRN PRN PRN Reason: NAUSEA/VOMITING Sodium Chloride (0.9% Saline Lock 10 Ml Syringe) 10 - 40 ml IV UD PRN PRN Reason: SALINE FLUSH Last Admin: 12/08/20 18:20 Dose: 10 ml Documented by: STROKE Vital Signs/Narrative: Vital Signs Pulse 12/09/20 05:59 87 Medical Necessity - Tobacco Use Smoking Status: Former smoker Tobacco Use: Cigarettes Assessment/Plan All Active Problems (Last Updated 10/03/20 @ 09:[address] Deann Calloway, DP) UTI (urinary tract infection) (Acute) Severe hyperglycemia due to diabetes mellitus (Acute) Severe sepsis (Acute) Wound of foot (Acute) Hyperglycemia (Acute) Noncompliance with medication regimen (Acute) Infection of left foot (Acute) Left foot pain (Acute) The patient is a 60 y/o M w/ PMHx: Diabetes mellitus type II with neuropathy, Chronic COPD, Rheumatoid arthritis, Hx of PE who presents to the [facility] ED on 12/07/20 with history of severe dysuria x4 to 5 days with urine noted to be foul-smelling with no fever or chills at that time and patient description of possible blood-tinged stools. 1. Acute severe sepsis secondary to acute complicated GNR urinary tract infection, possibly #2: ED evaluation with patient noted to be afebrile, tachycardic hemodynamically stable with CBC with WC 14 with left shift, sodium 128, chloride 90, creatinine 1.67 with glucose elevated to 517, lactic acid 3.9, urinalysis with elevated leukocyte esterase and greater than 100 WBCs. Patient initially admitted to the ICU however given clinical improvement 12/08/2020 transitioned medical surgical floor, lactic acid elevation resolved, continued judicious hydration, continued IV Rocephin pending urine cultures for speciation and sensitivities, 12/08/20 1/2 Bld Cx w/ GPC unclear if chains/clusters with vancomycin addition, possibly secondary to #2 as noted, ongoing evaluation. 2. Left lower extremity chronic diabetic wound, ulcer: Patient with Unna boot in place, from discussions with supposed to come down previously, wound RN consulted, continue dressing changes, podiatry consulted, may be source of potential positive gram-positive cocci blood culture however only 1 of [address] with urine currently noting gram-negative rods, continue IV vancomycin which was initiated 12/09/2020. 3. ? GI bleed: Patient noting blood-tinged stools with initial hemoglobin upon presentation 14.6, repeat 11.1 following overnight aggressive hydration given severe sepsis presentation, guaiac requested and still not obtained, 12/08/20 Hgb 11.8 and repeat 12/09/20 Hgb 12.5, stable, suspect no GI bleed. Will transition protonix to oral regimen. Will refer at discharge for c-scope follow-up unless acute concerning change. 4. Acute kidney injury: Secondary to acute presentation as noted #1. Admission BUN/Cr 14/1.67, prior baseline creatinine noted to be 0.8-1.0 patient hydrated overnight aggressively given acute presentation with varus of sepsis as noted #1, repeat 12/09/2020 BUN/creatinine 16/0.81, resolved. 5. Diabetes mellitus type II with hyperglycemia with polyneuropathy: Will continue home insulin regimen, ADA diet, accu checks w/ ISS, hemoglobin A1c obtained and noted to be 8.9%, may necessitate alteration of his regimen although an acute presentation likely elevated secondary to acute infection, nutrition consultation for education and teaching. 6. Hypokalemia: Admission K+ 3.0, magnesium level 1.8, supplementation K+ given, 12/09/20 K 3.9, normalized. 7. DVT prophylaxis: SCDs, deferred any chemoprophylaxis secondary to #3. Inpatient E&M: [id number] [facility] Hosp L3
--- NOTE | 2020-12-09 09:53 | NURSING ---
wound photo: left heel
--- NOTE | 2020-12-09 09:54 | NURSING ---
skin photo: left heel
[2020-12-09] MEDS: Pantoprazole Sodium 40 MG Tablet PO ×2 (10:04→21:04)
[2020-12-09] MEDS: Glucerna Shake 120 ML LIQUID PO ×3 (10:06→21:05)
[2020-12-09 11:55] LABS: Bedside Glucose 311 mg/dL (70-110)
--- NOTE | 2020-12-09 12:02 | PCM.CONS.GEN ---
Problem List (1) Ulcer of left heel Status: Chronic (2) Type 2 diabetes mellitus with diabetic polyneuropathy Status: Chronic (3) Calcaneal gait Status: Chronic (4) Walking difficulty due to ankle and foot Status: Chronic (5) UTI (urinary tract infection) Status: Acute (6) Severe hyperglycemia due to diabetes mellitus Status: Acute (7) Achilles rupture, left Status: Chronic Qualifiers: Encounter type: sequela Qualified Code(s): S86.012S - Strain of left Achilles tendon, sequela (8) Infection of left foot Status: Acute Reason for Consult Date of Consultation: 12/09/20 Reason for Consultation: Left heel ulcer History of Present Illness: The patient is a 60 year old M who presents to the emergency room with elevated blood glucose, UTI, bacteremia, WILLARD. Patient has significant history including diabetes with neuropathy, COPD, rheumatoid arthritis, history of PE and osteomyelitis left foot. Patient was initially admitted to the ICU for being transferred to [facility]. Patient is known to podiatry and has been seen at the wound care center after patient was worked up for heel ulcer with osteomyelitis. Patient completed course of 6 weeks of IV antibiotics with rehabilitation at a SNF. This was being managed by Dr. De Leon. Continued care was being made at the wound care center. Patient underwent Epicort application approximately 2 weeks ago with total contact cast. Patient failed to follow-up last week citing truck issues. The wound had not been changed since last appointment. Upon removal of total contact cast it was noted that there was significant odor and drainage to the area. Patient relates that he is feeling much better from admission.[] Past Medical History Past Medical History (Chronic Problems): Chronic Problems (Last Updated 10/03/20 @ 09:[address] 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 Deann Calloway, [place]) History of pulmonary embolism Z86.711 Allergies onion Allergy (Verified 12/07/20 19:18) Food Allergy SWELLING Home Medications: Ambulatory Orders Medication Instructions Recorded Acetaminophen [Tylenol Tablet] 650 mg PO Q6H PRN PRN tab 10/06/20 Insulin Lispro [Humalog KwikPen] 8 unit SC TIDAC insuln.pen 10/06/20 Insulin Glargine [Lantus SoloStar 35 units SC QHS 12/07/20 Pen] Surgical History: - - Pins in neck, left heel debridement Psychiatric History: No pertinent psych hx Lives: With Family Smoking Status: Former smoker Tobacco Use: Cigarettes Alcohol: None Drugs: None - *Family History Paternal History Items: - - His father from an industrial accident. Maternal History Items: - - Denies knowledge of maternal medical history Review of Systems Constitutional: Denies: Chills, Fever Cardiovascular: Denies: Chest Pain Respiratory: Denies: Cough, Shortness of Breath Skin: Reports: Wounds - Left heel Neurological: Reports: Numbness, Tingling Patient Problems: Active and Suspected Problems (Last Updated 10/03/20 @ 09:[address] Deann Calloway, [facility]) UTI (urinary tract infection) (Acute) Severe hyperglycemia due to diabetes mellitus (Acute) Severe sepsis (Acute) Infection of left foot (Acute) - Physical Exam Vitals/I&O's: Vital Signs Temp Pulse Resp BP Pulse Ox 97.7 F L 81 18 120/70 96 12/09/20 08:30 12/09/20 08:30 12/09/20 08:30 12/09/20 08:30 12/09/20 09:33 Oxygen Flow Rate (L/min) 2 Oxygen Delivery Method Room Air Weight: 81.1 kg Body Mass Index (BMI) 25.4 Finger Stick Blood Glucose 415 Intake and Output for Last 24 Hours 12/07/20 12/08/20 12/09/20 23:59 23:59 23:59 Intake Total 2320 / 2380 3594.17 / 3644.17 745.75 / 745.75 Output Total 1800 / 2850 2950 / 2950 Balance 2320 / 2380 1794.17 / 794.17 -2204.25 / -2204.25 General: Alert, Oriented x3 HEENT: Atraumatic Extremities: No clubbing, No cyanosis, Capillary Refill Less than 3 Seconds, No Calf Tenderness, Diminished Peripheral Pulses, Edema - Left heel Skin: Ulcer/ Wound - Left heel. Mild malodor, no purulent drainage, surrounding erythema and edema to lower extremity, probes to bone with bone fragments noted unsure if this is new or remnants from previous surgery, skin is atrophic and hairless, macerated edges, fibrotic areas noted, undermining to 6 and 10:00 Musculoskeletal: Muscle Wasting Neurological: - - Lack of epicritic sensation consistent with neuropathy Psych/Mental Status: Normal Affect, Appropriate Microbiology Past 72 Hours 12/07/20 21:03 Urine, Clean Catch Urine Culture - Final Proteus mirabilis 12/07/20 20:35 Blood Culture (Wb) - Anticubital Left Bacteria Detection (PCR) - Final 12/07/20 20:35 Blood Culture (Wb) - Anticubital Left Blood Culture - Preliminary Alpha hemolytic organism Laboratory Results 12/08/20 12:55: Hgb 11.0 L, Hct 34.3 L 12/08/20 16:00: Hgb 11.8 L, Hct 36.9 L 12/08/20 16:03: POC Glucose 259 H 12/08/20 22:13: POC Glucose 367 H 12/09/20 05:20: WBC 10.1, RBC 4.54 L, Hgb 12.5 L, Hct 38.6 L, MCV 85.0, MCH 27.5, MCHC 32.4, RDW Std Deviation 39.0, RDW Coeff of Cheri 12.5, Plt Count 316, MPV 9.3, Immature Gran % (Auto) 0.500, Neut % (Auto) 72.2 H, Lymph % (Auto) 17.0 L, Hill % (Auto) 7.2, Eos % (Auto) 2.7, Baso % (Auto) 0.4, Absolute Neuts (auto) 7.3, Absolute Lymphs (auto) 1.72, Nucleated RBC % 0 12/09/20 05:20: Sodium 134 L, Potassium 3.9, Chloride 101, Carbon Dioxide 29.0, Anion Gap 4 L, BUN 16, Creatinine 0.81, Estim Creat Clear Calc 98.89, Est GFR (MDRD) Af Amer 125, Est GFR (MDRD) Non-Af 103, BUN/Creatinine Ratio 19.8, Glucose 177 H, Calcium 8.5, Total Bilirubin 0.30, AST 19, ALT 27, Alkaline Phosphatase 107, Total Protein 7.0, Albumin 2.1 L, Globulin 4.9 H, Albumin/Globulin Ratio 0.4 L 12/09/20 06:29: POC Glucose 190 H 12/09/20 09:30: S.aureus Protein A PCR Pending, MRSA (PCR) Pending 12/09/20 11:47: POC Glucose 311 H Current Medications Acetaminophen (Acetaminophen 325 Mg Tablet) 650 mg PO Q6H PRN PRN PRN Reason: Pain Score 1-10/Temp > 100.7 F Last Admin: 12/09/20 04:08 Dose: 650 mg Documented by: Dextrose (Dextrose 50%-Water 25 Gm/50 Ml Disp.Syrin) 0 gm IV X1 PRN; Protocol PRN Reason: Hypoglycemia Glucagon (Glucagon 1 Mg/Ml Syringe) 1 mg IM .X1 PRN PRN Reason: Hypoglycemia Hydralazine HCl (Hydralazine 20 Mg/Ml Vial) 10 mg IV Q4H PRN PRN PRN Reason: SBP > 160 Sodium Chloride () 250 mls @ 15 mls/hr IV .[id number] PRN PRN Reason: Additional IVPB Infusion Last Infusion: 12/09/20 06:24 Dose: 0 mls/hr Documented by: Ceftriaxone Sodium (Rocephin) 1 gm in 50 mls @ 100 mls/hr IV Q24@2200 TEDDY Last Infusion: 12/08/20 23:01 Dose: Infused Documented by: Vancomycin IV Pharmacy to Dose (1 ea/ Sodium Chloride) 500 mls @ 250 mls/hr IV X1 PRN; Protocol PRN Reason: Rx to Dose Vancomycin HCl 1,750 mg/ (Sodium Chloride) 535 mls @ 250 mls/hr IV Q12H [facility] Last Infusion: 12/09/20 08:33 Dose: Infused Documented by: Insulin Glargine (Insulin Glargine 100 Units/Ml Pen) 35 units SC QHS [facility] Last Admin: 12/08/20 22:10 Dose: 35 unit Documented by: Insulin Human Lispro (Insulin Lispro 100 Unit/Ml Insuln.Pen) 0 unit SC ACHS [facility]; Protocol Last Admin: 12/09/20 11:49 Dose: 9 u Documented by: Nutritional Formula (Lactose Free) (Glucerna Shake 120 Ml Liquid) 120 ml PO 4X/DAY [facility] Last Admin: 12/09/20 10:06 Dose: 120 ml Documented by: Ondansetron HCl (Ondansetron 4 Mg/2 Ml Vial) 4 mg IV Q8H PRN PRN PRN Reason: NAUSEA/VOMITING Pantoprazole Sodium (Pantoprazole Sodium 40 Mg Tablet) 40 mg PO BID [facility] Last Admin: 12/09/20 10:04 Dose: 40 mg Documented by: Sodium Chloride (0.9% Saline Lock 10 Ml Syringe) 10 - 40 ml IV UD PRN PRN Reason: SALINE FLUSH Last Admin: 12/08/20 18:20 Dose: 10 ml Documented by: Assessment/Plan All Active Problems (Last Updated 10/03/20 @ 09:[address] Deann Calloway, DP) UTI (urinary tract infection) (Acute) Severe hyperglycemia due to diabetes mellitus (Acute) Severe sepsis (Acute) Wound of foot (Acute) Hyperglycemia (Acute) Noncompliance with medication regimen (Acute) Infection of left foot (Acute) Left foot pain (Acute) Left foot ulceration to level of bone Diabetes with neuropathy Left foot cellulitis UTI Bacteremia WILLARD-resolved Hyperglycemia-improved RA Patient seen and examined Patient presented with total contact cast with epi cord graft application noted to left lower extremity. Wound care nurse removed casting dressing and related there was significant malodor with minor amounts of purulent drainage from 6 o'clock position undermining of ulceration. Some malodor was expected due to graft application. There was no further purulent drainage expressed upon my examination several hours later. Patient has history of osteomyelitis to this heel which underwent surgical debridement and course of IV antibiotics in September 2020. Arterial study from October 28, 2020 demonstrate triphasic waveforms bilaterally and right NADIA of 1.01 and TBI of 1.12 and left NADIA of 1.16 and TBI of 1.34. This would suggest that patient has adequate perfusion for healing with possibility of some calcified vessels. There is concerned that infection might have returned or was never completely resolved. Sharp excisional nonselective debridement of left heel ulcer was carried out into the level of bone with a curette, pickup and scissors with removal of all devitalized, slough, biofilm, and fibrous tissue. There are some undermining noted to the 6 and 10 o'clock position with fibrotic tissue noted. Bone is exposed and easily palpable. This was done without incidence. This was tolerated due to patient's neuropathy. Sent bone fragments from calcaneus to microbiology will follow results. Patient noted to be bacteremic growing alphahemolytic bacteria and urine culture growing Proteus Mirabilis White blood cell count 10.1 down from 14 on admission and lactic acid of 3.9 on admission Continue wound care wet-to-dry dressing packed into areas of undermining daily Nonweightbearing left lower extremity X-ray and MRI ordered Follow cultures from left foot wound Pending results from imaging and cultures patient may need to undergo another surgical debridement of bone. Possibility of long-term course of IV antibiotics as well. Will have discussion with patient on risk benefits of further removal of heel bone versus IV antibiotic treatment course pending results. Consider ID consult for management of long-term IV antibiotics Hemoglobin A1c noted to be 8.9% on 12/08/2020 down from 12.8% beginning of September 2020 All questions answered Thank you for the consult Podiatry will continue to follow next please contact if any questions or concerns Edie Armendariz DPM [facility] [phone]
--- NOTE | 2020-12-09 12:24 | MRI_ITS ---
STUDY: MRI LEFT ANKLE WITH AND WITHOUT CONTRAST REASON FOR EXAM: Male, 60 years old. left heel ulcer -- chronic plantar heel ulcer, hx osteomyelitis, had a cast on and 6 weeks of antibiotics, missed follow up appt. now wound drainage and fowl smell TECHNIQUE: Standarized fat and water weighted pulse sequences were obtained in all 3 orthogonal plane pre and post administration of IV dotarem 15ml. COMPARISON: 10/03/2020. FINDINGS: Large soft tissue ulceration is moderately increased compared to the prior study. There is signal abnormality and discontinuity of the plantar fascia at the origin consistent with deep ulceration. Small full thickness tear is suspected. There is extensive marrow edema and enhancement of the calcaneus, markedly increased compared to the prior study. There is cortical destruction of the plantar surface. Findings are consistent with worsening osteomyelitis compared to the prior study. Tendon thickening and signal alteration in the distal Achilles tendon consistent with tendinosis. No high-grade tear. Peroneus, flexor, and extensor tendons are intact. Medial and lateral ligament complexes are intact. Small ankle and subtalar joint effusions. Subtalar ligaments and sinus tarsi are unremarkable. MRI/Lower Ext No Joint W/WO Cont IMPRESSION: 1. Osteomyelitis of the calcaneus, increased compared to the prior study. 2. Signal abnormality in the plantar fascia consistent with inflammatory changes and suspected full-thickness tear. 3. Achilles tendinosis. Electronically Signed: Florinda Sprague MD at 17:12 EST Tel , Service support ,
--- NOTE | 2020-12-09 12:31 | RAD_ITS ---
STUDY: X-RAY - LEFT FOOT CLINICAL: Male, 60 years old. Ulcer to left heel TECHNIQUE: 3 view(s) of the foot. COMPARISON: Comparison is made with prior examination dated 10/04/2020. FINDINGS: There is a 2.5 cm x 1.5 cm soft tissue laceration overlying the posterior aspect of the plantar surface of the calcaneus. There is evidence of erosive changes at the level of the calcaneus. Normal visualized subtalar, talonavicular, calcaneocuboid, tarsal and tarsometatarsal articulations. Normal metatarsi. Normal metatarsophalangeal joint of the great toe. Normal tibial and fibular sesamoid bones. Normal interphalangeal joint of the great toe. Normal phalanges of the great toe. Normal second through fifth metatarsophalangeal joints. Normal interphalangeal joints and phalanges of the lesser toes. Soft tissue swelling. RAD/Foot min 3 Views IMPRESSION: 2.5 cm x 1.5 cm ulcerated lesion along the posterior plantar aspect of the foot with the overlying erosive changes of the calcaneus. Electronically Signed: Gustavo Lezama MD at 12:53 EST , Service support ,
[2020-12-09 12:56] LABS: Erythrocyte Sedimentation Rate 73 mm/hr (0-20)
[2020-12-09 13:36] LABS: M R Staph aureus DNA By PCR Negative (Negative); Probe Check PASS; Specimen Processing Control PASS; Staph aureus DNA By PCR POSITIVE (Negative)
[2020-12-09 17:06] LABS: Bedside Glucose 338 mg/dL (70-110)
[2020-12-09] MEDS: Ceftriaxone 1 GM/50 ML BAG IV (21:03)
[2020-12-09 21:06] LABS: Bedside Glucose 240 mg/dL (70-110)
[2020-12-10] VITALS (11 sets, daily range): BP systolic 113–136; BP diastolic 68–70; PULSE 83–94; RESP 18; TEMP 36.4–37.1; O2SAT 96–99
[2020-12-10 05:55] LABS: Absolute Lymphocyte Count 1.82 X10^3/uL (0.83-4.51); Absolute Neutrophil Count 8.6 X10^3/uL (2.0-7.7); Basophil# 0.08 X10^3/uL; Basophil% 0.7 % (0-1); Eosinophil# 0.26 X10^3/uL; Eosinophils% 2.2 % (0-5); Hematocrit 41.2 % (40-54); Hemoglobin 13.6 g/dL (13.0-16.5); Lymphocyte # 1.82 X10^3/ul (4.0); Lymphocyte % 15.6 % (19-41); Mean Corpuscular Hgb 28.2 pg (27.0-32.0); Mean Corpuscular Volume 85.5 fL (80-94); Mean Platelet Vol. 9.4 fl (6.2-12.0); Monocyte% 6.9 % (0-10); NRBC Flagged by Analyzer 0 % (0-5); Neutrophil # 8.62 X10^3/uL (2.7-7.7); Neutrophil % 74.2 % (47-70); Platelet Count 388 K/mm3 (150-450); RBC Distribution Width CV 12.4 % (11.6-14.6); RBC Distribution Width SD 38.8 fl (35.1-43.9); Red Blood Count 4.82 M/mm3 (4.6-6.2); White Blood Count 11.6 K/mm3 (4.4-11.0)
[2020-12-10] MEDS: Insulin Lispro 100 UNIT/ML INSULN.PEN SC ×4 (06:18→21:34)
[2020-12-10 06:23] LABS: Vancomycin, Trough Level 20.4 ug/mL (5.0-15.0)
[2020-12-10] MEDS: Acetaminophen 325 MG Tablet 650 MG PO (06:23)
[2020-12-10 06:26] LABS: Bedside Glucose 196 mg/dL (70-110)
[2020-12-10 06:27] LABS: ALB/GLOB Ratio 0.4 RATIO (0.9-2.4); AST(SGOT) 16 U/L (15-37); Alanine Aminotransfer ALT/SGPT 27 U/L (16-61); Albumin, Serum 2.2 g/dL (3.2-5.0); Alkaline Phosphatase 110 U/L (45-117); Anion Gap 4 (5-15); BUN 21 mg/dL (7-18); BUN/Creat Ratio 22.7 RATIO (10-20); Calcium,Total 8.9 mg/dL (8.5-10.1); Chloride 100 mmol/L (98-107); Creatinine, Serum 0.93 mg/dL (0.70-1.30); EST Glomerular Filtration Rate 88 mL/min (>60); Est Glom Filt Rate - Afr Amer 107 mL/min (>60); Estimated Creatinine Clearance 86.13 ml/min; Globulin 5.4 g/dL (2.2-4.2); Glucose 171 mg/dL (74-106); Potassium 3.9 mmol/L (3.5-5.1); Protein, Total 7.6 g/dL (6.4-8.2); Sodium Level 133 mmol/L (136-145)
--- NOTE | 2020-12-10 08:01 | PN_ITS ---
Patient Problems: Active and Suspected Problems (Last Updated 10/03/20 @ 09:[address] Deann Calloway, [place]) UTI (urinary tract infection) (Acute) Severe hyperglycemia due to diabetes mellitus (Acute) Severe sepsis (Acute) Infection of left foot (Acute) Subjective: Patient with no acute events overnight per self and per nursing report. Patient does note feeling improved since initial presentation, less fatigued, improved urination. He is tearful this morning regarding potential future need for amputation if antibiotic therapy not successful. He does report that he recently signed for a new apartment and is concerned about this given need for likely prolonged long-term facility placement. Patient with 12/09/2020 Sh brianna excisional nonselective debridement of the left heel ulcer to the level of bone with bone fragments sent to microbiology per podiatry with 12/09/2020 preliminary culture noting gram-negative anselmo. 12/10/2020 reevaluation per podiatry of patient left chronic heel wound noted to be improved however left lower extremity MRI obtained 12/09/2020 following their evaluation with noted ostomy lightest at the calcaneus increased from prior study with signal abnormality also in the plantar fascia consistent with inflammatory changes with potentially a full-thickness tear as well as Achilles tendinosis. Per discussion with podiatry patient would potentially need either a trial of 6 weeks of IV antibiotic therapy or may likely eventually require a left BKA. 12/10/2020 PICC line placement requested. Discussed current plan of care with patient at length with planned skilled facility placement once clinically appropriate, awaiting infectious disease input concurrently and plan de- escalation off IV vancomycin as MRSA screen negative with cultures currently gram-negative anselmo from wound and noted Proteus mirabilis finalization on urine culture susceptible to Zosyn. Patient denies fevers, chills, nausea, emesis, abdominal pain, chest pain or dyspnea. Objective: Physical Examination: General: awake, alert, oriented x 3 and cooperative, laying in the medical surgical bed, tearful this morning secondary to discussions of potential left BKA if antibiotic therapy not successful. Skin: normal color, turgor, no icterus, cyanosis except noted left lower extremity with prior removal of casting, status post I&D at bedside 12/09/2020 per podiatry with moderate dodd drainage with visible bone with mild yellow slough and some periwound pink tissue with no purulence, still mildly foul- smelling noted to be 2.2 x 3 x 1.2 cm undermined by 1.1 cm. HEENT: AT/NC, EOMI, PERRLA, MMM. Lungs: Diminished breath sounds, greater bases, normal effort, no rales, ronchi or wheezing. Heart: Regular rate and rhythm; no gallop, rub audible. Abdomen: soft, NTTP, resolved prior suprapubic discomfort, ND, normal BS. Extremities: no cyanosis or clubbing, see skin. Neurological: patient awake, alert, oriented as noted; cognitive function intact; pupils equally reactive to light and accomodation; cranial nerves II-XII grossly normal, moving all 4 extremities currently nonweightbearing to left lower extremity given acute presentation as noted, no focal deficits, strength improving, mildly to moderately globally decreased likely secondary to acute presentation. Psychiatric: affect appears fatigued, tearful with obvious anxiety and depressive appropriate feelings. Vitals/I&O's: Vital Signs Temp Pulse Resp BP Pulse Ox 98.4 F 93 18 124/68 H 97 12/10/20 02:17 12/10/20 05:29 12/10/20 02:17 12/10/20 02:17 12/10/20 02:17 Oxygen Flow Rate (L/min) 2 Oxygen Delivery Method Room Air Weight: 169 lb 5.04 oz Body Mass Index (BMI) 25.4 Finger Stick Blood Glucose 415 Intake and Output for Last 24 Hours 12/08/20 12/09/20 12/10/20 23:59 23:59 23:59 Intake Total 3594.17 / 3644.17 88.25 / 88.25 Output Total 1800 / 2850 3550 / 4150 1475 / 1475 Balance 1794.17 / 794.17 -1535.00 / -2135.00 -1386.75 / -1386.75 Microbiology Past 72 Hours 12/07/20 20:35 Blood Culture (Wb) - Anticubital Left Bacteria Detection (PCR) - Final 12/07/20 20:35 Blood Culture (Wb) - Anticubital Left Blood Culture - Final Lactobacillus acidophilus 12/07/20 20:35 Blood Culture (Wb) - Anticubital Right Blood Culture - Preliminary No growth in 48 hours. 12/09/20 12:00 Bone - Left Foot Gram Stain - Final 12/07/20 21:03 Urine, Clean Catch Urine Culture - Final Proteus mirabilis Laboratory Results 12/09/20 05:20: ESR 73 H 12/09/20 05:20: C-React Prot Ext Range 54.60 H 12/09/20 09:30: S.aureus Protein A PCR POSITIVE H, MRSA (PCR) Negative 12/09/20 11:47: POC Glucose 311 H 12/09/20 16:15: POC Glucose 338 H 12/09/20 20:56: POC Glucose 240 H 12/10/20 05:30: WBC 11.6 H, RBC 4.82, Hgb 13.6, Hct 41.2, MCV 85.5, MCH 28.2, MCHC 33.0, RDW Std Deviation 38.8, RDW Coeff of Cheri 12.4, Plt Count 388, MPV 9.4, Immature Gran % (Auto) 0.400, Neut % (Auto) 74.2 H, Lymph % (Auto) 15.6 L, [place] % (Auto) 6.9, Eos % (Auto) 2.2, Baso % (Auto) 0.7, Absolute Neuts (auto) 8.6 H, Absolute Lymphs (auto) 1.82, Nucleated RBC % 0 12/10/20 05:30: Sodium 133 L, Potassium 3.9, Chloride 100, Carbon Dioxide 29.0, Anion Gap 4 L, BUN 21 H, Creatinine 0.93, Estim Creat Clear Calc 86.13, Est GFR (MDRD) Af Amer 107, Est GFR (MDRD) Non-Af 88, BUN/Creatinine Ratio 22.7 H, Glucose 171 H, Calcium 8.9, Total Bilirubin 0.30, AST 16, ALT 27, Alkaline Phosphatase 110, Total Protein 7.6, Albumin 2.2 L, Globulin 5.4 H, Albumin/Globulin Ratio 0.4 L 12/10/20 05:30: Vancomycin Trough 20.4 H 12/10/20 06:17: POC Glucose 196 H Current Medications Acetaminophen (Acetaminophen 325 Mg Tablet) 650 mg PO Q6H PRN PRN PRN Reason: Pain Score 1-10/Temp > 100.7 F Last Admin: 12/10/20 06:23 Dose: 650 mg Documented by: Dextrose (Dextrose 50%-Water 25 Gm/50 Ml Disp.Syrin) 0 gm IV X1 PRN; Protocol PRN Reason: Hypoglycemia Glucagon (Glucagon 1 Mg/Ml Syringe) 1 mg IM .X1 PRN PRN Reason: Hypoglycemia Hydralazine HCl (Hydralazine 20 Mg/Ml Vial) 10 mg IV Q4H PRN PRN PRN Reason: SBP > 160 Sodium Chloride () 250 mls @ 15 mls/hr IV .[id number] PRN PRN Reason: Additional IVPB Infusion Last Infusion: 12/10/20 06:18 Dose: 0 mls/hr Documented by: Vancomycin IV Pharmacy to Dose (1 ea/ Sodium Chloride) 500 mls @ 250 mls/hr IV X1 PRN; Protocol PRN Reason: Rx to Dose Vancomycin HCl 1,750 mg/ (Sodium Chloride) 535 mls @ 250 mls/hr IV Q12H [facility] Last Admin: 12/10/20 06:18 Dose: 250 mls/hr Documented by: Piperacillin Sod/Tazobactam (Sod 3.375 gm/ Sodium Chloride) 50 mls @ 12.5 mls/hr IV Q8 TEDDY Insulin Glargine (Insulin Glargine 100 Units/Ml Pen) 35 units SC QHS [facility] Last Admin: 12/09/20 21:04 Dose: 35 unit Documented by: Insulin Human Lispro (Insulin Lispro 100 Unit/Ml Insuln.Pen) 0 unit SC ACHS [facility]; Protocol Last Admin: 12/10/20 06:18 Dose: 3 u Documented by: Nutritional Formula (Lactose Free) (Glucerna Shake 120 Ml Liquid) 120 ml PO 4X/DAY [facility] Last Admin: 12/09/20 21:05 Dose: 120 ml Documented by: Ondansetron HCl (Ondansetron 4 Mg/2 Ml Vial) 4 mg IV Q8H PRN PRN PRN Reason: NAUSEA/VOMITING Pantoprazole Sodium (Pantoprazole Sodium 40 Mg Tablet) 40 mg PO BID [facility] Last Admin: 12/09/20 21:04 Dose: 40 mg Documented by: Sodium Chloride (0.9% Saline Lock 10 Ml Syringe) 10 - 40 ml IV UD PRN PRN Reason: SALINE FLUSH Last Admin: 12/08/20 18:20 Dose: 10 ml Documented by: STROKE Vital Signs/Narrative: Vital Signs Pulse 12/10/20 05:29 93 Medical Necessity - Tobacco Use Smoking Status: Former smoker Tobacco Use: Cigarettes Assessment/Plan All Active Problems (Last Updated 10/03/20 @ 09:[address] Deann Calloway, DPShaila) UTI (urinary tract infection) (Acute) Severe hyperglycemia due to diabetes mellitus (Acute) Severe sepsis (Acute) Wound of foot (Acute) Hyperglycemia (Acute) Noncompliance with medication regimen (Acute) Infection of left foot (Acute) Left foot pain (Acute) The patient is a 60 y/o M w/ PMHx: Diabetes mellitus type II with neuropathy, Chronic COPD, Rheumatoid arthritis, Hx of PE who presents to the [facility] ED on 12/07/20 with history of severe dysuria x4 to 5 days with urine noted to be foul- smelling with no fever or chills at that time and patient description of possible blood-tinged stools. 1. Acute severe sepsis secondary to acute complicated Proteus mirabilis UTI and #2: ED evaluation with patient noted to be afebrile, tachycardic hemodynamically stable with CBC with WC 14 with left shift, sodium 128, chloride 90, creatinine 1.67 with glucose elevated to 517, lactic acid 3.9, urinalysis with elevated leukocyte esterase and greater than 100 WBCs. Patient initially admitted to the ICU however given clinical improvement 12/08/2020 transitioned medical surgical floor, lactic acid elevation resolved, continued judicious hydration, continued IV Rocephin pending urine cultures for speciation and sensitivities; however given appearance LLE as noted #2 transitioned to vanc and zosyn with initially noted 12/08/20 1/2 Bld Cx w/ GPC unclear if chains/clusters resulted as lac tobacillus acidophilus with negative MRSA screen for #2, UCx w/ proteus mirabilis sensitive to Zosyn. 12/10/20 PICC placement given #2. Awaiting infectious disease input. 2. Left lower extremity Chronic Diabetic Wound with Acute GNR Osteomyelitis involving ~90% Calcaneus: Podiatry consulted and following. Casting removed which had been placed at the [facility]. Wound RN consulted and following concurrently. 12/09/2020 LLE MRI w/ evidence osteomyelitis at the calcaneus increased from prior study with signal abnormality also in the plantar fascia consistent with inflammatory changes with potentially a full-thickness tear as well as Achilles tendinosis. 12/09/2020 Sharp excisional nonselective debridement of the left heel ulcer to the level of bone with bone fragments sent to microbiology per podiatry with 12/09/2020 preliminary culture noting gram-negative anselmo. 12/10/20 PICC line placed with need for 6 weeks of abx therapy. MRSA screen negative therefore de- escalate off Vanc to zosyn only. We will continue wet-to-dry dressing changes and nonweightbearing status to left lower extremity. Infectious disease consulted and pending. 3. ? GI bleed: Patient noting blood-tinged stools with initial hemoglobin upon presentation 14.6, repeat 11.1 following overnight aggressive hydration given severe sepsis presentation, guaiac requested and still not obtained, 12/08/20 Hgb 11.8-->12/09/20 Hgb 12.5-->12/10/20 Hgb 13.6, stable, suspect no GI bleed. Transitioned protonix to oral regimen. Will refer at discharge for c-scope follow-up unless acute concerning change. 4. Acute kidney injury: Secondary to acute presentation as noted #1. Admission BUN/Cr 14/1.67, prior baseline creatinine noted to be 0.8-1.0 patient hydrated overnight aggressively given acute presentation with varus of sepsis as noted #1, repeat 12/10/2020 BUN/creatinine 21/0.93, continue to monitor. 5. Diabetes mellitus type II with hyperglycemia with polyneuropathy: Will continue home insulin regimen, ADA diet, accu checks w/ ISS, hemoglobin A1c obtained and noted to be 8.9%, may necessitate alteration of his regimen although an acute presentation likely elevated secondary to acute infection, nutrition consultation for education and teaching. 6. Hypokalemia: Admission K+ 3.0, magnesium level 1.8, supplementation K+ given, 12/10/2020 K3.9, resolved. 7. DVT prophylaxis: SCDs, deferred any chemoprophylaxis secondary to #3. Inpatient E&M: [id number] [facility] Hosp L3
--- NOTE | 2020-12-10 08:10 | PN_ITS ---
Patient Problems: Active and Suspected Problems (Last Updated 10/03/20 @ 09:[address] Deann Calloway, [place]) UTI (urinary tract infection) (Acute) Severe hyperglycemia due to diabetes mellitus (Acute) Severe sepsis (Acute) Infection of left foot (Acute) Subjective: Patient seen and examined resting comfortably. Patient denies any new pedal complaints. Patient denies any nausea, fever, chills, chest pain, shortness of breath, cough. Patient is worried about infection to his foot - Physical Exam Vitals/I&O's: Vital Signs Temp Pulse Resp BP Pulse Ox 98.4 F 93 18 124/68 H 97 12/10/20 02:17 12/10/20 05:29 12/10/20 02:17 12/10/20 02:17 12/10/20 02:17 Oxygen Flow Rate (L/min) 2 Oxygen Delivery Method Room Air Weight: 76.8 kg Body Mass Index (BMI) 25.4 Finger Stick Blood Glucose 415 Intake and Output for Last 24 Hours 12/08/20 12/09/20 12/10/20 23:59 23:59 23:59 Intake Total 3594.17 / 3644.17 88.25 / 88.25 Output Total 1800 / 2850 3550 / 4150 1475 / 1475 Balance 1794.17 / 794.17 -1535.00 / -2135.00 -1386.75 / -1386.75 General: Alert, Oriented x3 HEENT: Atraumatic Extremities: No cyanosis, No edema, Capillary Refill Less than 3 Seconds, No Calf Tenderness, Diminished Peripheral Pulses, Edema - Mild left ankle, Tenderness - Left heel Skin: Ulcer/ Wound - Left heel ulcer. Malodor improved, no purulent drainage, surrounding erythema and edema to lower extremity improved, probes to bone, skin is atrophic and hairless, less fibrotic tissue noted, less maceration, less serous drainage Musculoskeletal: Muscle Wasting, Tenderness - Left heel Neurological: - - Decreased light touch sensation Psych/Mental Status: Normal Affect, Appropriate Microbiology Past 72 Hours 12/07/20 20:35 Blood Culture (Wb) - Anticubital Left Bacteria Detection (PCR) - Final 12/07/20 20:35 Blood Culture (Wb) - Anticubital Left Blood Culture - Final Lactobacillus acidophilus 12/07/20 20:35 Blood Culture (Wb) - Anticubital Right Blood Culture - Pr eliminary No growth in 48 hours. 12/09/20 12:00 Bone - Left Foot Gram Stain - Final 12/07/20 21:03 Urine, Clean Catch Urine Culture - Final Proteus mirabilis Laboratory Results 12/09/20 05:20: ESR 73 H 12/09/20 05:20: C-React Prot Ext Range 54.60 H 12/09/20 09:30: S.aureus Protein A PCR POSITIVE H, MRSA (PCR) Negative 12/09/20 11:47: POC Glucose 311 H 12/09/20 16:15: POC Glucose 338 H 12/09/20 20:56: POC Glucose 240 H 12/10/20 05:30: WBC 11.6 H, RBC 4.82, Hgb 13.6, Hct 41.2, MCV 85.5, MCH 28.2, MCHC 33.0, RDW Std Deviation 38.8, RDW Coeff of Cheri 12.4, Plt Count 388, MPV 9.4, Immature Gran % (Auto) 0.400, Neut % (Auto) 74.2 H, Lymph % (Auto) 15.6 L, Nicholas % (Auto) 6.9, Eos % (Auto) 2.2, Baso % (Auto) 0.7, Absolute Neuts (auto) 8.6 H, Absolute Lymphs (auto) 1.82, Nucleated RBC % 0 12/10/20 05:30: Sodium 133 L, Potassium 3.9, Chloride 100, Carbon Dioxide 29.0, Anion Gap 4 L, BUN 21 H, Creatinine 0.93, Estim Creat Clear Calc 86.13, Est GFR (MDRD) Af Amer 107, Est GFR (MDRD) Non-Af 88, BUN/Creatinine Ratio 22.7 H, Glucose 171 H, Calcium 8.9, Total Bilirubin 0.30, AST 16, ALT 27, Alkaline Phosphatase 110, Total Protein 7.6, Albumin 2.2 L, Globulin 5.4 H, Albumin/Globulin Ratio 0.4 L 12/10/20 05:30: Vancomycin Trough 20.4 H 12/10/20 06:17: POC Glucose 196 H Current Medications Acetaminophen (Acetaminophen 325 Mg Tablet) 650 mg PO Q6H PRN PRN PRN Reason: Pain Score 1-10/Temp > 100.7 F Last Admin: 12/10/20 06:23 Dose: 650 mg Documented by: Dextrose (Dextrose 50%-Water 25 Gm/50 Ml Disp.Syrin) 0 gm IV X1 PRN; Protocol PRN Reason: Hypoglycemia Glucagon (Glucagon 1 Mg/Ml Syringe) 1 mg IM .X1 PRN PRN Reason: Hypoglycemia Hydralazine HCl (Hydralazine 20 Mg/Ml Vial) 10 mg IV Q4H PRN PRN PRN Reason: SBP > 160 Sodium Chloride () 250 mls @ 15 mls/hr IV .[id number] PRN PRN Reason: Additional IVPB Infusion Last Infusion: 12/10/20 06:18 Dose: 0 mls/hr Documented by: Vancomycin IV Pharmacy to Dose (1 ea/ Sodium Chloride) 500 mls @ 250 mls/hr IV X1 PRN; Protocol PRN Reason: Rx to Dose Vancomycin HCl 1,750 mg/ (Sodium Chloride) 535 mls @ 250 mls/hr IV Q12H [facility] Last Admin: 12/10/20 06:18 Dose: 250 mls/hr Documented by: Piperacillin Sod/Tazobactam (Sod 3.375 gm/ Sodium Chloride) 50 mls @ 12.5 mls/hr IV Q8 TEDDY Insulin Glargine (Insulin Glargine 100 Units/Ml Pen) 35 units SC QHS [facility] Last Admin: 12/09/20 21:04 Dose: 35 unit Documented by: Insulin Human Lispro (Insulin Lispro 100 Unit/Ml Insuln.Pen) 0 unit SC ACHS [facility]; Protocol Last Admin: 12/10/20 06:18 Dose: 3 u Documented by: Nutritional Formula (Lactose Free) (Glucerna Shake 120 Ml Liquid) 120 ml PO 4X/DAY [facility] Last Admin: 12/09/20 21:05 Dose: 120 ml Documented by: Ondansetron HCl (Ondansetron 4 Mg/2 Ml Vial) 4 mg IV Q8H PRN PRN PRN Reason: NAUSEA/VOMITING Pantoprazole Sodium (Pantoprazole Sodium 40 Mg Tablet) 40 mg PO BID [facility] Last Admin: 12/09/20 21:04 Dose: 40 mg Documented by: Sodium Chloride (0.9% Saline Lock 10 Ml Syringe) 10 - 40 ml IV UD PRN PRN Reason: SALINE FLUSH Last Admin: 12/08/20 18:20 Dose: 10 ml Documented by: Medical Necessity - Tobacco Use Smoking Status: Former smoker Tobacco Use: Cigarettes Assessment/Plan All Active Problems (Last Updated 10/03/20 @ 09:[address] Deann Calloway, [facility]) UTI (urinary tract infection) (Acute) Severe hyperglycemia due to diabetes mellitus (Acute) Severe sepsis (Acute) Wound of foot (Acute) Hyperglycemia (Acute) Noncompliance with medication regimen (Acute) Infection of left foot (Acute) Left foot pain (Acute) Left foot ulceration to level of bone Diabetes with neuropathy Left foot cellulitis UTI Bacteremia WILLARD-resolved Hyperglycemia-improved RA Patient seen and examined Patient presented with total contact cast with epi cord graft application noted to left lower extremity. Wound care nurse removed casting dressing and related there was significant malodor with minor amounts of purulent drainage from 6 o'clock position undermining of ulceration. Some malodor was expected due to graft application. There was no further purulent drainage expressed upon my examination several hours later. Patient has history of osteomyelitis to this heel which underwent surgical debridement and course of IV antibiotics in September 2020. Arterial study from October 28, 2020 demonstrate triphasic waveforms bilaterally and right NADIA of 1.01 and TBI of 1.12 and left NADIA of 1.16 and TBI of 1.34. This would suggest that patient has adequate perfusion for healing with possibility of some calcified vessels. There is concerned that infection might have returned or was never completely resolved. Wound noted to have improved in appearance with less fibrotic tissue and maceration and drainage Patient noted to be bacteremic growing alphahemolytic bacteria and urine culture growing Proteus Mirabilis. Left foot swab and bone culture still pending White blood cell count 11.6, ESR 73, CRP 74.6 and lactic acid of 3.9 on admission Hemoglobin A1c noted to be 8.9% on 12/08/2020 down from 12.8% beginning of September 2020 Continue wound care wet-to-dry dressing packed into areas of undermining today. Patient will benefit from a wound VAC and should be started tomorrow after ulceration is checked in the morning. Continue IV antibiotics Nonweightbearing left lower extremity X-ray and MRI reviewed. Left foot MRI showed: IMPRESSION: 1. Osteomyelitis of the calcaneus, increased compared to the prior study. 2. Signal abnormality in the plantar fascia consistent with inflammatory changes and suspected full-thickness tear. 3. Achilles tendinosis. Reviewed MRI results with the patient. Discussed that the infection has spread to about 90% of his calcaneus. Discussed that it is not possible for me to remove all the infected bone surgically and still give him a functional foot. Discussed that the possibility of removing any nidus of infection surgically but no nidus or abscesses were seen on MRI to remove surgically. Also on exam no further purulent drainage that was expressed by wound nurse yesterday was seen nor was any particular area of bone worse than the other and overall wound looked improved from yesterday. Discussed treatment with long-term course of IV antibiotics to remove the infection. Discussed if heel infection will spreads or worsens the next surgical level of amputation would be a BKA. Discussed that this is not necessary at this time but it may be necessary in the future and wanted to prepare patient for this possibility. Discussed potentially doing HBO therapy upon discharge at wound care center to help remove infection and promote healing for this recurrent osteomyelitis. Discussed wound VAC therapy to help draw remaining infection. Discussed importance of nonweightbearing as the bone is weakened from the infection to prevent any fractures of the calcaneus bone. I highly recommend placement in a facility for this patient in order to allow healing long-term course of IV antibiotics, physical therapy, and wound VAC therapy to give him the best potential outcome. All questions answered Podiatry will continue to follow next please contact if any questions or concerns Edie Armendariz DPM [facility] [phone] This note was generated with Instant [employer] software. It may contain incorrect words, spelling, and punctuation that were not noted in checking the note before signing.
--- NOTE | 2020-12-10 08:54 | NURSING ---
wound photo: left heel
--- NOTE | 2020-12-10 09:22 | CASEMGMT ---
Addendum entered by Sandra Ramachandran 12/10/20 14:18: SW received call from [facility] at [facility] stating [facility] is able to accept pt. [facility] states [facility] will either have a bed available tomorrow or Monday. [facility] states pt's insurance is still waiving pre-certs. Pt can admit when medically cleared and when a bed is available. Addendum entered by Sandra Ramachandran 12/10/20 10:24: SW placed a call to Brii at [facility] and provided referral. SW faxed referral to [facility]. Original Note: Social Work Note SW received update that pt will need IV antibiotics and wound vac at discharge, recommendation is SNF. SW in to speak with pt. SW introduced self and role at [facility]. Pt is alert and orientated x3. Pt confirms he will get IV antibiotics and Wound vac, agreeable to SNF. Patient was provided a list of SNF providers including quality and resource use data and consistent with the patient?s preferred geographic region, medical needs, and insurance network. The patient?s preferred provider is [facility]. Pt states he has been there before, agreeable to return. SW asked pt about him getting his own apartment. Pt confirms this. Pt states he just signed a year lease contract. Pt states his apartment is not through [facility]. SW encouraged pt to reach out to his landlord and if his landlord needs documentation of pt being at [facility] or at SNF to let staff know and they will be able to provide documents for pt. Pt states understanding. SW to speak with ID to confirm antibiotics then will send referral to [facility]. Plan: [facility] pending acceptance and pre-cert Sandra Ramachandran [employer] INVESTIGATOR, [employer] ENGINEER
--- NOTE | 2020-12-10 09:43 | PCM.RX.CS ---
Consult Pharmacy has been consulted to manage selected antiobiotic: Vancomycin Type of Consult: Follow-up Suspected Infection: Other - WOUND Labs: Sodium 133 mmol/L (136-145) L 12/10/20 05:30 Potassium 3.9 mmol/L (3.5-5.1) 12/10/20 05:30 Chloride 100 mmol/L (98-107) 12/10/20 05:30 Carbon Dioxide 29.0 mmol/L (21.0-32.0) 12/10/20 05:30 Anion Gap 4 (5-15) L 12/10/20 05:30 BUN 21 mg/dL (7-18) H 12/10/20 05:30 Creatinine 0.93 mg/dL (0.70-1.30) 12/10/20 05:30 Est GFR (MDRD) Af Amer 107 mL/min (>60) 12/10/20 05:30 Est GFR (MDRD) Non-Af 88 mL/min (>60) 12/10/20 05:30 BUN/Creatinine Ratio 22.7 RATIO (10-20) H 12/10/20 05:30 Glucose 171 mg/dL (74-106) H 12/10/20 05:30 Vancomycin Trough 20.4 ug/mL (5.0-15.0) H 12/10/20 05:30 Microbiology: Microbiology 12/07/20 20:35 Blood Culture (Wb) - Anticubital Left Bacteria Detection (PCR) - Final 12/07/20 20:35 Blood Culture (Wb) - Anticubital Left Blood Culture - Final Lactobacillus acidophilus 12/07/20 20:35 Blood Culture (Wb) - Anticubital Right Blood Culture - Preliminary No growth in 48 hours. 12/09/20 12:00 Bone - Left Foot Gram Stain - Final 12/07/20 21:03 Urine, Clean Catch Urine Culture - Final Proteus mirabilis Goal Trough: 15-20 mcg/mL Pharmacy Plan for Drug Dosing: VANCOMYCIN LEVEL RECEIVED Current Vancomycin Dose: 1750MG Q12H Number of Doses Received: 3 Vancomycin Level: 20.4 MG/DL Hours Since Last Dose: 12 Renal Function: SCR 0.93, CRCL 86.1 ML/MIN Renal Function Trend: STABLE Vancomycin Plan/Comments: DECREASE DOSE TO 1500MG Q12H. 0600 DOSE WAS HUNG, WILL START NEW DOSE TONIGHT AT 1800 AND GET A TROUGH PRIOR TO 4TH DOSE OF THE NEW REGIMEN. Pharmacy Service will continue to monitor and adjust dosing as required. Labs to be done on [date and time ordered]: 12/12/20 @ 6249
[2020-12-10] MEDS: Glucerna Shake 120 ML LIQUID PO ×4 (11:00→21:34)
[2020-12-10] MEDS: Pantoprazole Sodium 40 MG Tablet PO ×2 (11:00→21:35)
[2020-12-10 11:10] LABS: Bedside Glucose 275 mg/dL (70-110)
[2020-12-10 11:35] LABS: Bedside Glucose 252 mg/dL (70-110)
--- NOTE | 2020-12-10 16:13 | CON.PCM_ITS ---
Problem List (1) Osteomyelitis Status: Chronic Reason for Consult: osteo Consulted by: Dr. Levine History of Present Illness: The patient is a 60 year old M who is homeless, admitted 09/2020 with strep and klebs bacteremia due to L heel osteo with uncontrolled DM - surg cx with GBS, MSSA, klebs, GPR. PCR showing mSSA. A1C 12.8. OR 10/[address] Calloway for I&D. On iv ceftriaxone for 6 weeks, completed 11/15/20. Missed his wound clinic appt last week, now with 2-3 days of worsened L foot redness, drainage, and foul odor. No fever, no redness streaking up leg. Came to ED, admitted on vanc/zosyn, seen by Dr. Armendariz. MRI done. Vanc stopped. Full ROS performed and neg except as noted above. Does report recent uti, now dysuria improved. - Medical History Past Medical History (Chronic Problems): Chronic Problems (Last Updated 10/03/20 @ 09:[address] 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) Osteomyelitis (Chronic) Allergies/Adverse Reactions: Allergies onion Allergy (Verified 12/07/20 19:18) Food Allergy SWELLING Home Medications: Ambulatory Orders Medication Instructions Recorded Acetaminophen [Tylenol Tablet] 650 mg PO Q6H PRN PRN tab 10/06/20 Insulin Lispro [Humalog KwikPen] 8 unit SC TIDAC insuln.pen 10/06/20 Insulin Glargine [Lantus SoloStar 35 units SC QHS 12/07/20 Pen] - Social History SMOKING STATUS:: Former smoker Vital Signs Temp Pulse Resp BP Pulse Ox 98.7 F 91 18 113/69 99 12/10/20 15:17 12/10/20 15:17 12/10/20 15:17 12/10/20 15:17 12/10/20 15:17 Oxygen Flow Rate (L/min) 2 Oxygen Delivery Method Room Air Weight: 76.8 kg Body Mass Index (BMI) 25.4 Finger Stick Blood Glucose 415 Microbiology Past 72 Hours 12/10/20 13:30 SARS-CoV-2 Antigen (Rapid) - Final Mucosa - Nasopharyngeal 12/10/20 12:55 Stool Occult Blood (CURTIS) - Final Stool 12/09/20 09:30 Gram Stain - Final Wound Drainage - Aerobic & Anaerobic Swabs Wound Culture - Preliminary Gram negative anselmo 12/09/20 12:00 Gram Stain - Final Bone - Left Foot Wound Culture - Preliminary Gram negative anselmo 12/07/20 20:35 Bacteria Detection (PCR) - Final Blood Culture (Wb) - Anticubital Left Blood Culture - Final Lactobacillus acidophilus 12/07/20 20:35 Blood Culture - Preliminary Blood Culture (Wb) - Anticubital Right No growth in 48 hours. 12/07/20 21:03 Urine Culture - Final Urine, Clean Catch Proteus mirabilis Laboratory Tests Past 24 Hrs 12/10/20 12/10/20 12/10/20 05:30 05:30 05:30 WBC 11.6 H RBC 4.82 Hgb 13.6 Hct 41.2 MCV 85.5 MCH 28.2 MCHC 33.0 RDW Std Deviation 38.8 RDW Coeff of Cheri 12.4 Plt Count 388 MPV 9.4 Immature Gran % (Auto) 0.400 Neut % (Auto) 74.2 H Lymph % (Auto) 15.6 L Briscoe % (Auto) 6.9 Eos % (Auto) 2.2 Baso % (Auto) 0.7 Absolute Neuts (auto) 8.6 H Absolute Lymphs (auto) 1.82 Nucleated RBC % 0 Sodium 133 L Potassium 3.9 Chloride 100 Carbon Dioxide 29.0 Anion Gap 4 L BUN 21 H Creatinine 0.93 Estim Creat Clear Calc 86.13 Est GFR (MDRD) Af Amer 107 Est GFR (MDRD) Non-Af 88 BUN/Creatinine Ratio 22.7 H Glucose 171 H Calcium 8.9 Total Bilirubin 0.30 AST 16 ALT 27 Alkaline Phosphatase 110 Total Protein 7.6 Albumin 2.2 L Globulin 5.4 H Albumin/Globulin Ratio 0.4 L Vancomycin Trough 20.4 H - Other Studies Radiology: [] reviewed Other Studies: [] Route of nutrition/ use of supplements: [] Nutritional Intake: [] IV Site: [] Wilkinson Catheter: [] - Physical Exam General: Alert, Cooperative, No apparent distress HEENT: Atraumatic, PERRLA, EOMI Neck: Supple, No Nodes Lungs: Clear to auscultation, Normal air movement Cardiovascular: Regular rate, Regular Rhythm Abdomen: Soft, Non Tender, Non-Distended Extremities: No edema Skin: Ulcer/ Wound - reviewed photo IV Site: Peripheral, without redness Musculoskeletal: No Tenderness to Palpation of Joints or Extremities Neurological: Cranial nerves II-XII grossly intact - Assessment/Plan Antibiotics: [] Assessment/Plan: [] Active and Suspected Problems (Last Updated 10/03/20 @ 09:[address] Deann Calloway, DPM) UTI (urinary tract infection) (Acute) Severe hyperglycemia due to diabetes mellitus (Acute) Severe sepsis (Acute) Infection of left foot (Acute) L heel osteo - wound cx with GNR. Single bcx with lactobacillus, likely contaminant at this point. Treating uti as well. Dysuria improving. Cont zosyn, plan will be for 6 weeks iv abx, picc to be placed. Will need ECF placement to have any chance of avoiding BKA. Will follow, thank you, d/w foster care case manager
[2020-12-10 17:36] LABS: Bedside Glucose 205 mg/dL (70-110)
[2020-12-10 21:46] LABS: Bedside Glucose 303 mg/dL (70-110)
[2020-12-11] VITALS (8 sets, daily range): BP systolic 109–117; BP diastolic 61–66; PULSE 76–91; RESP 16–18; TEMP 36.6–36.9; O2SAT 95–96
[2020-12-11 06:26] LABS: Absolute Lymphocyte Count 1.89 X10^3/uL (0.83-4.51); Absolute Neutrophil Count 9.7 X10^3/uL (2.0-7.7); Basophil# 0.04 X10^3/uL; Basophil% 0.3 % (0-1); Eosinophil# 0.31 X10^3/uL; Eosinophils% 2.4 % (0-5); Hematocrit 40.6 % (40-54); Lymphocyte # 1.89 X10^3/ul (4.0); Lymphocyte % 14.6 % (19-41); Mean Corpuscular Hgb 27.6 pg (27.0-32.0); Mean Corpuscular Volume 86.2 fL (80-94); Mean Platelet Vol. 9.3 fl (6.2-12.0); Monocyte# 0.92 X10^3/uL; Monocyte% 7.1 % (0-10); NRBC Flagged by Analyzer 0 % (0-5); Neutrophil # 9.69 X10^3/uL (2.7-7.7); Neutrophil % 75.1 % (47-70); Platelet Count 378 K/mm3 (150-450); RBC Distribution Width CV 12.8 % (11.6-14.6); RBC Distribution Width SD 40.6 fl (35.1-43.9); Red Blood Count 4.71 M/mm3 (4.6-6.2); White Blood Count 12.9 K/mm3 (4.4-11.0)
[2020-12-11 06:45] LABS: ALB/GLOB Ratio 0.4 RATIO (0.9-2.4); AST(SGOT) 19 U/L (15-37); Alanine Aminotransfer ALT/SGPT 27 U/L (16-61); Albumin, Serum 2.2 g/dL (3.2-5.0); Alkaline Phosphatase 110 U/L (45-117); Anion Gap 6 (5-15); BUN 29 mg/dL (7-18); BUN/Creat Ratio 34.2 RATIO (10-20); Calcium,Total 8.7 mg/dL (8.5-10.1); Chloride 99 mmol/L (98-107); Creatinine, Serum 0.85 mg/dL (0.70-1.30); EST Glomerular Filtration Rate 97 mL/min (>60); Est Glom Filt Rate - Afr Amer 118 mL/min (>60); Estimated Creatinine Clearance 94.23 ml/min; Globulin 5.2 g/dL (2.2-4.2); Glucose 203 mg/dL (74-106); Potassium 4.1 mmol/L (3.5-5.1); Protein, Total 7.4 g/dL (6.4-8.2); Sodium Level 134 mmol/L (136-145)
[2020-12-11] MEDS: Insulin Lispro 100 UNIT/ML INSULN.PEN SC ×4 (06:47→20:53)
[2020-12-11 07:00] LABS: Bedside Glucose 221 mg/dL (70-110)
--- NOTE | 2020-12-11 07:11 | PCM.PN.HOSP ---
Patient Problems: Active and Suspected Problems (Last Updated 10/03/20 @ 09:[address] Deann Calloway, [place]) UTI (urinary tract infection) (Acute) Severe hyperglycemia due to diabetes mellitus (Acute) Severe sepsis (Acute) Infection of left foot (Acute) Subjective: Patient with no acute events overnight per self and per nursing report. Patient with ongoing localized wound care with plan for discharge to skilled facility initially 12/11/2020 however this was delayed and will be discharged 12/12/2020 with ongoing VAC placement to the left heel with plan Monday change regimen. Discussed plan of care with patient and he remains amenable with plan to close follow-up with the wound care center with continued IV antibiotic therapy for the next 6 weeks and continue nonweightbearing status. Patient today is more stoic as he had been very tearful regarding potential loss of his left lower extremity if antibiotic therapy not successful the day prior. He is working with therapies and moving well with a wheeled walker. Patient denies fevers, chills, nausea, emesis, abdominal pain, chest pain or dyspnea. Objective: Physical Examination: General: awake, alert, oriented x 3 and cooperative, seated upright at the medical surgical bedside, working with therapy, mood improved from day prior. Skin: normal color, turgor, no icterus, cyanosis except noted left lower extremity, left lower extremity plantar foot wound with moderate dodd drainage with visible bone with mild yellow slough and some periwound pink tissue with no purulence, less smell, noted to be 2.2 x 3 x 1.2 cm, undermined by 1.1 cm, plan wound VAC placement at skilled facility per discussion with wound RN currently wet-to-dry ongoing. HEENT: AT/NC, EOMI, PERRLA, MMM. Lungs: Diminished breath sounds, greater bases, normal effort, no rales, ronchi or wheezing. Heart: Regular rate and rhythm; no gallop, rub audible. Abdomen: soft, NTTP, resolved prior suprapubic discomfort, ND, normal BS. Extremities: no cyanosis or clubbing, see skin. Neurological: patient awake, alert, oriented as noted; cognitive function intact; pupils equally reactive to light and accomodation; cranial nerves II-XII grossly normal, moving all 4 extremities currently nonweightbearing to left lower extremity given acute presentation as noted, no focal deficits, strength improving, moderately globally decreased secondary to acute presentation. Psychiatric: affect appears more stoic, less anxious, no obvious current depression. Vitals/I&O's: Vital Signs Temp Pulse Resp BP Pulse Ox 98.3 F 91 16 109/66 96 12/11/20 03:41 12/11/20 06:00 12/11/20 03:41 12/11/20 03:41 12/11/20 03:41 Oxygen Flow Rate (L/min) 2 Oxygen Delivery Method Room Air Weight: 170 lb 3.15 oz Body Mass Index (BMI) 25.4 Finger Stick Blood Glucose 415 Intake and Output for Last 24 Hours 12/09/20 12/10/20 12/11/20 23:59 23:59 23:59 Intake Total 1186.50 / 1346.50 1008.25 / 1008.25 Output Total 3550 / 4150 1475 / 2375 1525 / 1525 Balance -1535.00 / -2135.00 -288.50 / -1028.50 -516.75 / -516.75 Microbiology Past 72 Hours 12/10/20 13:30 Mucosa - Nasopharyngeal SARS-CoV-2 Antigen (Rapid) - Final 12/10/20 12:55 Stool Stool Occult Blood (CURTIS) - Final 12/09/20 09:30 Wound Drainage - Aerobic & Anaerobic Swabs Gram Stain - Final 12/09/20 09:30 Wound Drainage - Aerobic & Anaerobic Swabs Wound Culture - Preliminary Gram negative anselmo 12/09/20 12:00 Bone - Left Foot Gram Stain - Final 12/09/20 12:00 Bone - Left Foot Wound Culture - Preliminary Gram negative anselmo 12/07/20 20:35 Blood Culture (Wb) - Anticubital Left Bacteria Detection (PCR) - Final 12/07/20 20:35 Blood Culture (Wb) - Anticubital Left Blood Culture - Final Lactobacillus acidophilus 12/07/20 20:35 Blood Culture (Wb) - Anticubital Right Blood Culture - Preliminary No growth in 48 hours. 12/07/20 21:03 Urine, Clean Catch Urine Culture - Final Proteus mirabilis Laboratory Results 12/10/20 11:03: POC Glucose 275 H 12/10/20 11:29: POC Glucose 252 H 12/10/20 17:27: POC Glucose 205 H 12/10/20 21:30: POC Glucose 303 H 12/11/20 06:00: WBC 12.9 H, RBC 4.71, Hgb 13.0, Hct 40.6, MCV 86.2, MCH 27.6, MCHC 32.0, RDW Std Deviation 40.6, RDW Coeff of Cheri 12.8, Plt Count 378, MPV 9.3, Immature Gran % (Auto) 0.500, Neut % (Auto) 75.1 H, Lymph % (Auto) 14.6 L, Winston % (Auto) 7.1, Eos % (Auto) 2.4, Baso % (Auto) 0.3, Absolute Neuts (auto) 9.7 H, Absolute Lymphs (auto) 1.89, Nucleated RBC % 0 12/11/20 06:00: Sodium 134 L, Potassium 4.1, Chloride 99, Carbon Dioxide 29.0, Anion Gap 6, BUN 29 H, Creatinine 0.85, Estim Creat Clear Calc 94.23, Est GFR (MDRD) Af Amer 118, Est GFR (MDRD) Non-Af 97, BUN/Creatinine Ratio 34.2 H, Glucose 203 H, Calcium 8.7, Total Bilirubin 0.30, AST 19, ALT 27, Alkaline Phosphatase 110, Total Protein 7.4, Albumin 2.2 L, Globulin 5.2 H, Albumin/Globulin Ratio 0.4 L 12/11/20 06:49: POC Glucose 221 H Current Medications Acetaminophen (Acetaminophen 325 Mg Tablet) 650 mg PO Q6H PRN PRN PRN Reason: Pain Score 1-10/Temp > 100.7 F Last Admin: 12/10/20 06:23 Dose: 650 mg Documented by: Dextrose (Dextrose 50%-Water 25 Gm/50 Ml Disp.Syrin) 0 gm IV X1 PRN; Protocol PRN Reason: Hypoglycemia Glucagon (Glucagon 1 Mg/Ml Syringe) 1 mg IM .X1 PRN PRN Reason: Hypoglycemia Hydralazine HCl (Hydralazine 20 Mg/Ml Vial) 10 mg IV Q4H PRN PRN PRN Reason: SBP > 160 Sodium Chloride () 250 mls @ 15 mls/hr IV .[id number] PRN PRN Reason: Additional IVPB Infusion Last Infusion: 12/11/20 06:46 Dose: 0 mls/hr Documented by: Piperacillin Sod/Tazobactam (Sod 3.375 gm/ Sodium Chloride) 50 mls @ 12.5 mls/hr IV Q8 [facility] Last Admin: 12/11/20 06:46 Dose: 12.5 mls/hr Documented by: Insulin Glargine (Insulin Glargine 100 Units/Ml Pen) 35 units SC QHS [facility] Last Admin: 12/10/20 21:34 Dose: 35 unit Documented by: Insulin Human Lispro (Insulin Lispro 100 Unit/Ml Insuln.Pen) 0 unit SC ACHS [facility]; Protocol Last Admin: 12/11/20 06:47 Dose: 6 u Documented by: Nutritional Formula (Lactose Free) (Glucerna Shake 120 Ml Liquid) 120 ml PO 4X/DAY [facility] Last Admin: 12/10/20 21:34 Dose: 120 ml Documented by: Ondansetron HCl (Ondansetron 4 Mg/2 Ml Vial) 4 mg IV Q8H PRN PRN PRN Reason: NAUSEA/VOMITING Pantoprazole Sodium (Pantoprazole Sodium 40 Mg Tablet) 40 mg PO BID [facility] Last Admin: 12/10/20 21:35 Dose: 40 mg Documented by: Sodium Chloride (0.9% Saline Lock 10 Ml Syringe) 10 - 40 ml IV UD PRN PRN Reason: SALINE FLUSH Last Admin: 12/08/20 18:20 Dose: 10 ml Documented by: STROKE Vital Signs/Narrative: Vital Signs Temp Pulse Resp BP Pulse Ox 12/11/20 06:00 91 12/11/20 03:41 98.3 F 87 16 109/66 96 Medical Necessity - Tobacco Use Smoking Status: Former smoker Tobacco Use: Cigarettes Assessment/Plan All Active Problems (Last Updated 10/03/20 @ 09:[address] Deann Calloway, DPM) UTI (urinary tract infection) (Acute) Severe hyperglycemia due to diabetes mellitus (Acute) Severe sepsis (Acute) Wound of foot (Acute) Hyperglycemia (Acute) Noncompliance with medication regimen (Acute) Infection of left foot (Acute) Left foot pain (Acute) The patient is a 60 y/o M w/ PMHx: Diabetes mellitus type II with neuropathy, Chronic COPD, Rheumatoid arthritis, Hx of PE who presents to the [facility] ED on 12/07/20 with history of severe dysuria x4 to 5 days with urine noted to be foul-smelling with no fever or chills at that time and patient description of possible blood-tinged stools. 1. Acute severe sepsis secondary to acute complicated Proteus mirabilis UTI and #2: ED evaluation with patient noted to be afebrile, tachycardic hemodynamically stable with CBC with WC 14 with left shift, sodium 128, chloride 90, creatinine 1.67 with glucose elevated to 517, lactic acid 3.9, urinalysis with elevated leukocyte esterase and greater than 100 WBCs. Patient initially admitted to the ICU however given clinical improvement 12/08/2020 transitioned medical surgical floor, lactic acid elevation resolved, continued judicious hydration, continued IV Rocephin pending urine cultures for speciation and sensitivities; however given appearance LLE as noted #2 transitioned to vanc and zosyn with initially noted 12/08/20 1/ Bld Cx w/ GPC unclear if chains/clusters resulted as lactobacillus acidophilus with negative MRSA screen for #2 therefore transitioned per infectious disease to continued IV Zosyn antibiotic therapy with plan continued IV antibiotics x 6-week with stop date 01/20/2021 with planned weekly BMP, CMP and ESR with currently surgical cultures with staph aureus and gram-negative anselmo x2 organisms pending results, UCx w/ proteus mirabilis sensitive to Zosyn. 12/10/20 PICC placement. Upon discharge we will plan close follow-up with podiatry at wound care center as well as infectious disease per their request in 2 to 3 weeks. Will plan SNF transition 12/12/20. 2. Left lower extremity Chronic Diabetic Wound with Acute GNR Osteomyelitis involving ~90% Calcaneus: Podiatry consulted and following. Casting removed which had been placed at the [facility]. Wound RN consulted and following concurrently. 12/09/2020 LLE MRI w/ evidence osteomyelitis at the calcaneus increased from prior study with signal abnormality also in the plantar fascia consistent with inflammatory changes with potentially a full-thickness tear as well as Achilles tendinosis. 12/09/2020 Sharp excisional nonselective debridement of the left heel ulcer to the level of bone with bone fragments sent to microbiology per podiatry. 12/08/20 1/2 Bld Cx w/ GPC unclear if chains/clusters resulted as lactobacillus acidophilus with negative MRSA screen for #2 therefore transitioned per infectious disease to continued IV Zosyn antibiotic therapy with plan continued IV antibiotics x 6-week with stop date 01/20/2021 with planned weekly BMP, CMP and ESR with currently surgical cultures with staph aureus and gram-negative anselmo x2 organisms pending results, UCx w/ proteus mirabilis sensitive to Zosyn. 12/10/20 PICC placement. Upon discharge we will plan close follow-up with podiatry at wound care center as well as infectious disease per their request in 2 to 3 weeks. 3. ? GI bleed: Patient noting blood-tinged stools with initial hemoglobin upon presentation 14.6, repeat 11.1 following overnight aggressive hydration given severe sepsis presentation, guaiac requested which was eventually obtained on 12/10/2020 and noted to be negative, 12/08/20 Hgb 11.8-->12/09/20 Hgb 12.5-->12/11/20 Hgb 13.0, stable, suspect no GI bleed. Transitioned protonix to oral regimen. Patient referred for follow-up with surgery for consideration outpatient endoscopies at future date if appropriate. 4. Acute kidney injury: Secondary to acute presentation as noted #1. Admission BUN/Cr 14/1.67, prior baseline creatinine noted to be 0.8-1.0 patient hydrated overnight aggressively given acute presentation with varus of sepsis as noted #1, repeat 12/11/2020 BUN/creatinine 29/0.85, continue to monitor. 5. Diabetes mellitus type II with hyperglycemia with polyneuropathy: Will continue home insulin regimen, ADA diet, accu checks w/ ISS, hemoglobin A1c obtained and noted to be 8.9%, may necessitate alteration of his regimen although an acute presentation likely elevated secondary to acute infection, nutrition consultation for education and teaching. 6. Hypokalemia: Admission K+ 3.0, magnesium level 1.8, supplementation K+ given, 12/11/2020 K 4.1, resolved. 7. DVT prophylaxis: SCDs, initially deferred chemoprophylaxis secondary to concerns for #3, guaiac is negative, hemoglobin stable, will initiate Lovenox therapy. Inpatient E&M: [id number] [facility] Hosp L2
--- NOTE | 2020-12-11 07:15 | PN_ITS ---
Patient Problems: Active and Suspected Problems (Last Updated 10/03/20 @ 09:[address] Deann Calloway, [facility]) UTI (urinary tract infection) (Acute) Severe hyperglycemia due to diabetes mellitus (Acute) Severe sepsis (Acute) Infection of left foot (Acute) Subjective: Patient seen and examined resting comfortably. Patient denies any new pedal complaints. Patient denies any nausea, fever, chills, chest pain, shortness of breath, cough, streaking, purulence, vomiting. - Physical Exam Vitals/I&O's: Vital Signs Temp Pulse Resp BP Pulse Ox 98.3 F 91 16 109/66 96 12/11/20 03:41 12/11/20 06:00 12/11/20 03:41 12/11/20 03:41 12/11/20 03:41 Oxygen Flow Rate (L/min) 2 Oxygen Delivery Method Room Air Weight: 77.2 kg Body Mass Index (BMI) 25.4 Finger Stick Blood Glucose 415 Intake and Output for Last 24 Hours 12/09/20 12/10/20 12/11/20 23:59 23:59 23:59 Intake Total 1186.50 / 1346.50 1008.25 / 1008.25 Output Total 3550 / 4150 1475 / 2375 1525 / 1525 Balance -1535.00 / -2135.00 -288.50 / -1028.50 -516.75 / -516.75 General: Alert, Oriented x3 HEENT: Atraumatic Extremities: No clubbing, No cyanosis, Capillary Refill Less than 3 Seconds, No Calf Tenderness, Diminished Peripheral Pulses - DP is 2 out of 4 PT is 1 out of 4 left lower extremity, Edema - Left heel improved, Tenderness - Left heel Skin: Ulcer/ Wound - Left plantar heel ulceration. Malodor improved, no further purulent drainage, surrounding erythema and edema to lower extremity has improved, probes to bone with minor bone fragments and soft bone to probing noted, some more granulation tissue noted, skin is atrophic and hairless Musculoskeletal: Muscle Wasting, Tenderness Neurological: - - Lack of epicritic sensation consistent with neuropathy Psych/Mental Status: Normal Affect, Appropriate Microbiology Past 72 Hours 12/10/20 13:30 Mucosa - Nasopharyngeal SARS-CoV-2 Antigen (Rapid) - Final 12/10/20 12:55 Stool Stool Occult Blood (CURTIS) - Final 12/09/20 09:30 Wound Drainage - Aerobic & Anaerobic Swabs Gram Stain - Final 12/09/20 09:30 Wound Drainage - Aerobic & Anaerobic Swabs Wound Culture - Preliminary Gram negative anselmo 12/09/20 12:00 Bone - Left Foot Gram Stain - Final 12/09/20 12:00 Bone - Left Foot Wound Culture - Preliminary Gram negative anselmo 12/07/20 20:35 Blood Culture (Wb) - Anticubital Left Bacteria Detection (PCR) - Final 12/07/20 20:35 Blood Culture (Wb) - Anticubital Left Blood Culture - Final Lactobacillus acidophilus 12/07/20 20:35 Blood Culture (Wb) - Anticubital Right Blood Culture - Preliminary No growth in 48 hours. 12/07/20 21:03 Urine, Clean Catch Urine Culture - Final Proteus mirabilis Laboratory Results 12/10/20 11:03: POC Glucose 275 H 12/10/20 11:29: POC Glucose 252 H 12/10/20 17:27: POC Glucose 205 H 12/10/20 21:30: POC Glucose 303 H 12/11/20 06:00: WBC 12.9 H, RBC 4.71, Hgb 13.0, Hct 40.6, MCV 86.2, MCH 27.6, MCHC 32.0, RDW Std Deviation 40.6, RDW Coeff of Cheri 12.8, Plt Count 378, MPV 9.3, Immature Gran % (Auto) 0.500, Neut % (Auto) 75.1 H, Lymph % (Auto) 14.6 L, Sanders % (Auto) 7.1, Eos % (Auto) 2.4, Baso % (Auto) 0.3, Absolute Neuts (auto) 9.7 H, Absolute Lymphs (auto) 1.89, Nucleated RBC % 0 12/11/20 06:00: Sodium 134 L, Potassium 4.1, Chloride 99, Carbon Dioxide 29.0, Anion Gap 6, BUN 29 H, Creatinine 0.85, Estim Creat Clear Calc 94.23, Est GFR (MDRD) Af Amer 118, Est GFR (MDRD) Non-Af 97, BUN/Creatinine Ratio 34.2 H, Glucose 203 H, Calcium 8.7, Total Bilirubin 0.30, AST 19, ALT 27, Alkaline Phosphatase 110, Total Protein 7.4, Albumin 2.2 L, Globulin 5.2 H, Albumin/Globulin Ratio 0.4 L 12/11/20 06:49: POC Glucose 221 H Current Medications Acetaminophen (Acetaminophen 325 Mg Tablet) 650 mg PO Q6H PRN PRN PRN Reason: Pain Score 1-10/Temp > 100.7 F Last Admin: 12/10/20 06:23 Dose: 650 mg Documented by: Dextrose (Dextrose 50%-Water 25 Gm/50 Ml Disp.Syrin) 0 gm IV X1 PRN; Protocol PRN Reason: Hypoglycemia Glucagon (Glucagon 1 Mg/Ml Syringe) 1 mg IM .X1 PRN PRN Reason: Hypoglycemia Hydralazine HCl (Hydralazine 20 Mg/Ml Vial) 10 mg IV Q4H PRN PRN PRN Reason: SBP > 160 Sodium Chloride () 250 mls @ 15 mls/hr IV .[id number] PRN PRN Reason: Additional IVPB Infusion Last Infusion: 12/11/20 06:46 Dose: 0 mls/hr Documented by: Piperacillin Sod/Tazobactam (Sod 3.375 gm/ Sodium Chloride) 50 mls @ 12.5 mls/hr IV Q8 [facility] Last Admin: 12/11/20 06:46 Dose: 12.5 mls/hr Documented by: Insulin Glargine (Insulin Glargine 100 Units/Ml Pen) 35 units SC QHS [facility] Last Admin: 12/10/20 21:34 Dose: 35 unit Documented by: Insulin Human Lispro (Insulin Lispro 100 Unit/Ml Insuln.Pen) 0 unit SC ACHS [facility]; Protocol Last Admin: 12/11/20 06:47 Dose: 6 u Documented by: Nutritional Formula (Lactose Free) (Glucerna Shake 120 Ml Liquid) 120 ml PO 4 X/DAY [facility] Last Admin: 12/10/20 21:34 Dose: 120 ml Documented by: Ondansetron HCl (Ondansetron 4 Mg/2 Ml Vial) 4 mg IV Q8H PRN PRN PRN Reason: NAUSEA/VOMITING Pantoprazole Sodium (Pantoprazole Sodium 40 Mg Tablet) 40 mg PO BID [facility] Last Admin: 12/10/20 21:35 Dose: 40 mg Documented by: Sodium Chloride (0.9% Saline Lock 10 Ml Syringe) 10 - 40 ml IV UD PRN PRN Reason: SALINE FLUSH Last Admin: 12/08/20 18:20 Dose: 10 ml Documented by: Medical Necessity - Tobacco Use Smoking Status: Former smoker Tobacco Use: Cigarettes Assessment/Plan All Active Problems (Last Updated 10/03/20 @ 09:[address] Deann Calloway, [facility]) UTI (urinary tract infection) (Acute) Severe hyperglycemia due to diabetes mellitus (Acute) Severe sepsis (Acute) Wound of foot (Acute) Hyperglycemia (Acute) Noncompliance with medication regimen (Acute) Infection of left foot (Acute) Left foot pain (Acute) Left heel ulceration to level of bone Diabetes with neuropathy Left foot cellulitis UTI Bacteremia WILLARD-resolved Hyperglycemia-improved RA Patient seen and examined Patient presented with total contact cast with epi cord graft application noted to left lower extremity. Wound care nurse removed casting dressing and related there was significant malodor with minor amounts of purulent drainage from 6 o'clock position undermining of ulceration. Some malodor was expected due to graft application. There was no further purulent drainage expressed upon my examination several hours later. Patient has history of osteomyelitis to this heel which underwent surgical debridement and course of IV antibiotics in September 2020. Arterial study from October 28, 2020 demonstrate triphasic waveforms bilaterally and right NADIA of 1.01 and TBI of 1.12 and left NADIA of 1.16 and TBI of 1.34. This would suggest that patient has adequate perfusion for healing with possibility of some calcified vessels. There is concerned that infection might have returned or was never completely resolved. Wound noted to have improved in appearance with less fibrotic tissue and maceration and drainage than yesterday Patient noted to be bacteremic growing alphahemolytic bacteria and urine culture growing Proteus Mirabilis. Left foot swab and bone culture growing gram neg anselmo White blood cell count 12.9, ESR 73, CRP 74.6 and lactic acid of 3.9 on admission Hemoglobin A1c noted to be 8.9% on 12/08/2020 down from 12.8% beginning of September 2020 Start wound vac dressing today Continue IV antibiotics per ID Nonweightbearing left lower extremity X-ray and MRI reviewed. Left foot MRI showed: IMPRESSION: 1. Osteomyelitis of the calcaneus, increased compared to the prior study. 2. Signal abnormality in the plantar fascia consistent with inflammatory changes and suspected full-thickness tear. 3. Achilles tendinosis. Reviewed MRI results with the patient. Discussed that the infection has spread to about 90% of his calcaneus. Discussed that it is not possible for me to remove all the infected bone surgically and still give him a functional foot. Discussed that the possibility of removing any nidus of infection surgically but no nidus or abscesses were seen on MRI to remove surgically. Also on exam no further purulent drainage that was expressed by wound nurse yesterday was seen nor was any particular area of bone worse than the other and overall wound looked improved from yesterday. Discussed treatment with long-term course of IV antibiotics to remove the infection. Discussed if heel infection will spreads or worsens the next surgical level of amputation would be a BKA. Discussed that this is not necessary at this time but it may be necessary in the future and wanted to prepare patient for this possibility. Discussed potentially doing HBO therapy upon discharge at wound care center to help remove infection and promote healing for this recurrent osteomyelitis. Discussed wound VAC therapy to help draw remaining infection and promote healing. Discussed importance of nonweightbearing as the bone is weakened from the infection to prevent any fractures of the calcaneus bone. I highly recommend placement in a facility for this patient in order to allow healing long-term course of IV antibiotics, physical therapy, and wound VAC therapy to give him the best potential outcome. DC planning to SNF either today or tomorrow. If going today can wait to place wound VAC until at facility. All questions answered Podiatry will continue to follow next please contact if any questions or concerns Edie Armendariz DPM [facility] [phone] This note was generated with [employer] dictation software. It may contain incorrect words, spelling, and punctuation that were not noted in checking the note before signing.
--- NOTE | 2020-12-11 09:34 | CASEMGMT ---
Addendum entered by Sandra Ramachandran 12/11/20 11:33: JOE spoke with Brii at [facility]. JOE informed Brii that discharge paperwork has already been completed and asked if she wanted paperwork to be faxed, Brii states to go ahead and fax discharge paperwork. JOE faxed completed discharge paperwork to Brii at [facility] including transfer to extended care facility, signed medication list, any scripts, COVID test, COVID screening tool, and HENS. Original in SNF folder and copy on pt's chart. Addendum entered by Sandra Ramachandran 12/11/20 10:55: JOE received call from Brii at [facility] stating they don't have results back from other pt's COVID test, anticipate they will not get results back until tomorrow. Brii states they will keep on checking results. Brii states she will keep checking results until around 3:00pm today and if nothing is heard back by then, plan will be for pt to admit tomorrow. JOE updated physician. SW in to speak with pt. JOE updated pt that [facility] is able to accept pt, just waiting for bed confirmation. JOE updated pt that it will be either today or tomorrow that pt discharges. Pt states understanding. SW completed convalescent 7000 in HENS. Original Note: Social Work Note Pt is medically ready for discharge. JOE placed a call to Brii at [facility] and left message that pt is ready for discharge, to let this worker know when a bed becomes available. Sandra Ramachandran HIGH LIFT OPERATOR, AIRCRAFT CAPTAIN
[2020-12-11] MEDS: Acetaminophen 325 MG Tablet 650 MG PO (09:38)
[2020-12-11] MEDS: Pantoprazole Sodium 40 MG Tablet PO ×2 (09:39→20:53)
[2020-12-11] MEDS: Glucerna Shake 120 ML LIQUID PO ×4 (09:39→20:53)
--- NOTE | 2020-12-11 09:41 | PCM.TXEXTCAR ---
- Diet 12/08/20 00:17 Diet: Consistent Carb - Calorie Controlled Type of Dietary Supplement:: Edy BID regimen Diet Comments: w/ breakfast and dinner How many daily calories?: 2000 calorie 1. Acute severe sepsis secondary to acute complicated Proteus mirabilis UTI and #2 2. Left lower extremity Chronic Diabetic Wound with Acute GNR Osteomyelitis involving ~90% Calcaneus 3. ? GI bleed with anemia, lower suspicion 4. Acute kidney injury secondary to #1, #2, improved 5. 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 Hypokalemia 7. Chronic COPD and questionable BENNIE 8. History of DVT/PE 9. Rheumatoid arthritis - Routine Orders/Code Status Enema Type: Fleetz Enema Frequency: Daily PRN Suppository Type: Dulcolax 10mg Suppository Frequency: Daily PRN Keep PO Greater than or Equal to (%): 90 Routine Lab Work: - - Obtain CBC, CMP, ESR weekly and fax to Dr. De Leon, Infectious disease. Code Status: Full Code - Wound(s) Left Heel Wound Type: Neuropathic/Diabetic Foot Ulcer Dressing Change: betadine moistened gauze - Suggestions for Active Care Change Position every (hours): 2 Hours to sit in a chair: 6 Times a day to sit in chair: 3 - Therapies Weight Bearing: Non weight bearing Extremity Affected:: Left Lower Physical Therapy: Eval and Treat Occupational Therapy: Eval and Treat - Allergies/Procedures Done in Hospital Allergies/Adverse Reactions: Allergies onion Allergy (Verified 12/07/20 19:18) Food Allergy SWELLING Procedures: - - Bedside I+D per Dr. Armendariz. - Type of Care/Length of Stay Estimated LOS: Convalescent Care Less Than 30 days Type of Care Needed: Skilled Rehab Potential: Good Prognosis: Good - Additional Orders/Day of Discharge Additional Orders: (1) Wound VAC placement to L heel at 150 mm Hg with change MWF regimen. If any concerns please immediately contact Podiatry. (2) Until VAC placed 12/11/20 continue wet-to-dry dressing packed into areas also of the underminded regions. If VAC is down then perform these dressing changes daily until VAC replaced. (3) Continue routine PICC line and region care per facility protocol. (4) Patient with planned 6 weeks of IV Zosyn for GNR osteomyelitis of left heel. (5) Maintain NWB status to the LLE, use walker and assist devices, elevate when seated and in bed above heart. (6) Encourage continued IS 10x/hr 7a-7p. (7) Maintain on fall precautions. (8) Continue aggressive nutrition education re: diabetes. H&P will serve as current which was dated: 12/07/20 Day of Discharge: 12/11/20 - Dietary and Speech Recommendations Dietitian Recommendations/Changes: Will increase to 2000 calories/day. Will add Edy BID for wound healing. - Follow Up Care Primary Care Physician: Care Physician,No Primary [Primary Care Provider] - Please Follow Up With: Kaylen Horton MD When: Please establish with Dr. Horton for routine primary care within 3-5 days. Please Follow Up With: Edie Armendariz DPM When: Follow-up in 1 week at the wound care center for re-evaluation. Please Follow Up With: Patito Rodriguez MD When: Follow-up outpatient for concerns GI bleed.
[2020-12-11 11:31] LABS: Bedside Glucose 248 mg/dL (70-110)
--- NOTE | 2020-12-11 11:38 | NURSING ---
PT STATED HE BUMPED L FOOT GETTING INTO BED, TYLENOL WAS INEFFECTIVE, DR GRULLON NOTIFIED OF SAME & NEW ORDERS RECEIVED.
[2020-12-11] MEDS: oxyCODONE 5 MG Tablet PO (12:04)
--- NOTE | 2020-12-11 12:04 | PHA.DC.MR ---
Pharmacy Service has performed discharge medication reconciliation for this patient upon transfer to [facility]. Home Medications Acetaminophen [Tylenol Tablet] 650 mg PO Q6H PRN PRN tab 10/06/20 Insulin Glargine [Lantus SoloStar Pen] 35 units SC QHS 12/07/20 Glucerna Shake 120 ml PO 4X/DAY liquid 12/11/20 Insulin Lispro [Humalog KwikPen] See Protocol SC ACHS insuln.pen 12/11/20 Oxycodone [Oxyir] 5 mg PO Q4H PRN PRN 5 Days #20 tab 12/11/20 Pantoprazole Sodium [Protonix] 40 mg PO BID tab 12/11/20 Piperacil/Tazobactam [Zosyn] 3.375 gm IV Q8 42 Days vial 12/11/20 The patient's discharge medication list was reviewed for discrepancies and discrepancies were resolved.
--- NOTE | 2020-12-11 14:00 | CASEMGMT ---
Addendum entered by Sandra Ramachandran 12/11/20 16:37: SW went ahead and scheduled transportation for 2:00pm tomorrow. Transportation form completed and placed on SNF folder. JOE placed a call to Brii at [facility] and updated her on transportation time tomorrow. JOE updated pt on discharge and transportation time tomorrow. JOE updated physician. RN also updated. Charge Nurse updated. Plan: [facility] tomorrow with physician's ambulance transporting pt via wheelchair van at 2:00pm Addendum entered by Sandra Ramachandran 12/11/20 15:49: JOE did placed a call to Brii at [facility] for update regarding bed availability today. Brii states no bed available today due to not having COVID results back for other pt. Brii confirms bed will be available tomorrow, pt can admit tomorrow. Brii confirms she has received all paperwork, pt will just need transportation arranged tomorrow. Addendum entered by Sanrda Ramachandran 12/11/20 15:14: It is after 3:00pm now, JOE hasn't received call from Brii at [facility] regarding bed availability today. JOE placed green sheet and transport form on pt's chart for Monday discharge. JOE wrote on green sheet that [facility] is requesting afternoon transportation time tomorrow. Plan: [facility] tomorrow Original Note: Social Work Note SW received call from Brii at [facility], stating no bed available yet. Brii states pt for sure can come tomorrow, will keep checking results until around 3:00pm and let this worker know if bed becomes available today. Brii states pt can come tomorrow regardless, requests afternoon transportation time. Physician updated, no bed available at this time. Sandra Ramachandran INTELLIGENCE INTERN, MEAT WRAPPER
--- NOTE | 2020-12-11 14:17 | PN.ID_ITS ---
Patient Problems: Active and Suspected Problems (Last Updated 10/03/20 @ 09:[address] Deann Calloway, [facility]) UTI (urinary tract infection) (Acute) Severe hyperglycemia due to diabetes mellitus (Acute) Severe sepsis (Acute) Infection of left foot (Acute) Subjective: Sleeping, no fever - Physical Exam Vitals/I&O's: Vital Signs Temp Pulse Resp BP Pulse Ox 98.0 F 76 18 117/63 96 12/11/20 14:10 12/11/20 14:10 12/11/20 14:10 12/11/20 14:10 12/11/20 14:10 Oxygen Flow Rate (L/min) 2 Oxygen Delivery Method Room Air Weight: 77.2 kg Body Mass Index (BMI) 25.4 Finger Stick Blood Glucose 415 Intake and Output for Last 24 Hours 12/09/20 12/10/20 12/11/20 23:59 23:59 23:59 Intake Total / 1186.50 / 1346.50 1058.25 / 1058.25 Output Total 3550 / 4150 1475 / 2375 1525 / 1525 Balance -1535.00 / -2135.00 -288.50 / -1028.50 -466.75 / -466.75 General: No apparent distress Lungs: Clear to auscultation, Normal air movement Cardiovascular: Regular rate, Regular Rhythm Abdomen: Soft, Non Tender, Non-Distended Skin: Ulcer/ Wound - foot wrapped Microbiology Past 72 Hours 12/09/20 12:00 Bone - Left Foot Gram Stain - Final 12/09/20 12:00 Bone - Left Foot Wound Culture - Preliminary Gram negative anselmo Gram negative anselmo#2 Staphylococcus aureus 12/09/20 12:00 Bone - Left Foot Anaerobic Culture - Preliminary Checking for anaerobes, further studies to follow. 12/09/20 09:30 Wound Drainage - Aerobic & Anaerobic Swabs Gram Stain - Final 12/09/20 09:30 Wound Drainage - Aerobic & Anaerobic Swabs Wound Culture - Preliminary Proteus sp. Gram negative anselmo Gram positive organism 12/09/20 09:30 Wound Drainage - Aerobic & Anaerobic Swabs Anaerobic Culture - Preliminary Checking for anaerobes, further studies to follow. 12/10/20 13:30 Mucosa - Nasopharyngeal SARS-CoV-2 Antigen (Rapid) - Final 12/10/20 12:55 Stool Stool Occult Blood (CURTIS) - Final 12/07/20 20:35 Blood Culture (Wb) - Anticubital Left Bacteria Detection (PCR) - Final 12/07/20 20:35 Blood Culture (Wb) - Anticubital Left Blood Culture - Final Lactobacillus acidophilus 12/07/20 20:35 Blood Culture (Wb) - Anticubital Right Blood Culture - Preliminary No growth in 48 hours. 12/07/20 21:03 Urine, Clean Catch Urine Culture - Final Proteus mirabilis Laboratory Results 12/10/20 17:27: POC Glucose 205 H 12/10/20 21:30: POC Glucose 303 H 12/11/20 06:00: WBC 12.9 H, RBC 4.71, Hgb 13.0, Hct 40.6, MCV 86.2, MCH 27.6, MCHC 32.0, RDW Std Deviation 40.6, RDW Coeff of Cheri 12.8, Plt Count 378, MPV 9.3, Immature Gran % (Auto) 0.500, Neut % (Auto) 75.1 H, Lymph % (Auto) 14.6 L, Hutchinson % (Auto) 7.1, Eos % (Auto) 2.4, Baso % (Auto) 0.3, Absolute Neuts (auto) 9.7 H, Absolute Lymphs (auto) 1.89, Nucleated RBC % 0 12/11/20 06:00: Sodium 134 L, Potassium 4.1, Chloride 99, Carbon Dioxide 29.0, Anion Gap 6, BUN 29 H, Creatinine 0.85, Estim Creat Clear Calc 94.23, Est GFR (MDRD) Af Amer 118, Est GFR (MDRD) Non-Af 97, BUN/Creatinine Ratio 34.2 H, Glucose 203 H, Calcium 8.7, Total Bilirubin 0.30, AST 19, ALT 27, Alkaline Phosphatase 110, Total Protein 7.4, Albumin 2.2 L, Globulin 5.2 H, Albumin/Globulin Ratio 0.4 L 12/11/20 06:49: POC Glucose 221 H 12/11/20 11:21: POC Glucose 248 H Current Medications Acetaminophen (Acetaminophen 325 Mg Tablet) 650 mg PO Q6H PRN PRN PRN Reason: Pain Score 1-10/Temp > 100.7 F Last Admin: 12/11/20 09:38 Dose: 650 mg Documented by: Dextrose (Dextrose 50%-Water 25 Gm/50 Ml Disp.Syrin) 0 gm IV X1 PRN; Protocol PRN Reason: Hypoglycemia Glucagon (Glucagon 1 Mg/Ml Syringe) 1 mg IM .X1 PRN PRN Reason: Hypoglycemia Hydralazine HCl (Hydralazine 20 Mg/Ml Vial) 10 mg IV Q4H PRN PRN PRN Reason: SBP > 160 Sodium Chloride () 250 mls @ 15 mls/hr IV .[id number] PRN PRN Reason: Additional IVPB Infusion Last Infusion: 12/11/20 06:46 Dose: 0 mls/hr Documented by: Piperacillin Sod/Tazobactam (Sod 3.375 gm/ Sodium Chloride) 50 mls @ 12.5 mls/hr IV Q8 [facility] Last Infusion: 12/11/20 10:46 Dose: Infused Documented by: Insulin Glargine (Insulin Glargine 100 Units/Ml Pen) 35 units SC QHS [facility] Last Admin: 12/10/20 21:34 Dose: 35 unit Documented by: Insulin Human Lispro (Insulin Lispro 100 Unit/Ml Insuln.Pen) 0 unit SC ACHS [facility]; Protocol Last Admin: 12/11/20 11:24 Dose: 6 u Documented by: Morphine Sulfate (Morphine 2 Mg/Ml Syringe) 2 mg IV Q4H PRN PRN PRN Reason: pain 6-10/10 Nutritional Formula (Lactose Free) (Glucerna Shake 120 Ml Liquid) 120 ml PO 4X/DAY [facility] Last Admin: 12/11/20 09:39 Dose: 120 ml Documented by: Ondansetron HCl (Ondansetron 4 Mg/2 Ml Vial) 4 mg IV Q8H PRN PRN PRN Reason: NAUSEA/VOMITING Oxycodone HCl (Oxycodone 5 Mg Tablet) 5 mg PO Q4H PRN PRN PRN Reason: Pain Score 6-10 Last Admin: 12/11/20 12:04 Dose: 5 mg Documented by: Pantoprazole Sodium (Pantoprazole Sodium 40 Mg Tablet) 40 mg PO BID [facility] Last Admin: 12/11/20 09:39 Dose: 40 mg Documented by: Sodium Chloride (0.9% Saline Lock 10 Ml Syringe) 10 - 40 ml IV UD PRN PRN Reason: SALINE FLUSH Last Admin: 02/09/21 18:20 Dose: 10 ml Documented by: Medical Necessity - Tobacco Use Smoking Status: Former smoker Tobacco Use: Cigarettes Route of nutrition/ use of supplements: [] Nutritional Intake: [] IV Site: [] Wilkinson Catheter: [] - Assessment/Plan Antibiotics: [] Assessment/Plan: [] Active and Suspected Problems (Last Updated 10/03/20 @ 09:[address] Deann Calloway, DPM) UTI (urinary tract infection) (Acute) Severe hyperglycemia due to diabetes mellitus (Acute) Severe sepsis (Acute) Infection of left foot (Acute) L heel osteo - wound cx with GNR. Single bcx with lactobacillus, likely contaminant at this point. Treating uti as well. Dysuria improving. Cont zosyn, plan will be for 6 weeks iv abx, picc to be placed, stop date 01/20/21 with weekly bmp, cbc, and esr. Surg cx with staph aureus and GNR x2, will follow results. ID followup in 2-3 weeks. Will follow, d/w caseworker protective services
[2020-12-11 16:41] LABS: Bedside Glucose 282 mg/dL (70-110)
[2020-12-11 21:10] LABS: Bedside Glucose 304 mg/dL (70-110)
[2020-12-12] MEDS: Acetaminophen 325 MG Tablet 650 MG PO (00:33)
[2020-12-12 03:49] VITALS: BP 118/64; PULSE 81; RESP 18; TEMP 36.9; O2SAT 97
[2020-12-12] MEDS: Insulin Lispro 100 UNIT/ML INSULN.PEN SC ×2 (06:04→11:43)
[2020-12-12] MEDS: Enoxaparin 40 MG/0.4 ML Syringe SC (06:05)
[2020-12-12 06:16] LABS: Bedside Glucose 180 mg/dL (70-110)
[2020-12-12 06:30] LABS: Absolute Lymphocyte Count 2.34 X10^3/uL (0.83-4.51); Basophil# 0.05 X10^3/uL; Basophil% 0.5 % (0-1); Eosinophil# 0.37 X10^3/uL; Eosinophils% 3.5 % (0-5); Hematocrit 39.8 % (40-54); Hemoglobin 12.8 g/dL (13.0-16.5); Lymphocyte # 2.34 X10^3/ul (4.0); Mean Corp Hgb Conc 32.2 g/dL (32-36); Mean Corpuscular Hgb 27.8 pg (27.0-32.0); Mean Corpuscular Volume 86.5 fL (80-94); Monocyte# 0.83 X10^3/uL; Monocyte% 7.8 % (0-10); NRBC Flagged by Analyzer 0 % (0-5); Neutrophil % 65.5 % (47-70); Platelet Count 359 K/mm3 (150-450); RBC Distribution Width CV 13.1 % (11.6-14.6); RBC Distribution Width SD 41.1 fl (35.1-43.9); White Blood Count 10.7 K/mm3 (4.4-11.0)
[2020-12-12 06:57] LABS: Vancomycin, Trough Level 5.1 ug/mL (5.0-15.0)
[2020-12-12 06:59] LABS: ALB/GLOB Ratio 0.4 RATIO (0.9-2.4); AST(SGOT) 21 U/L (15-37); Alanine Aminotransfer ALT/SGPT 30 U/L (16-61); Albumin, Serum 2.2 g/dL (3.2-5.0); Alkaline Phosphatase 105 U/L (45-117); Anion Gap 2 (5-15); BUN 27 mg/dL (7-18); BUN/Creat Ratio 26.5 RATIO (10-20); Calcium,Total 8.7 mg/dL (8.5-10.1); Chloride 100 mmol/L (98-107); Creatinine, Serum 1.02 mg/dL (0.70-1.30); EST Glomerular Filtration Rate 79 mL/min (>60); Est Glom Filt Rate - Afr Amer 95 mL/min (>60); Estimated Creatinine Clearance 78.53 ml/min; Globulin 5.2 g/dL (2.2-4.2); Glucose 193 mg/dL (74-106); Potassium 4.4 mmol/L (3.5-5.1); Protein, Total 7.4 g/dL (6.4-8.2); Sodium Level 135 mmol/L (136-145)
[2020-12-12 07:31] VITALS: O2SAT 97
[2020-12-12] MEDS: Glucerna Shake 120 ML LIQUID PO (08:23)
[2020-12-12] MEDS: Pantoprazole Sodium 40 MG Tablet PO (08:23)
[2020-12-12 08:29] VITALS: BP 117/63; PULSE 60; RESP 16; TEMP 36.6; O2SAT 97
--- NOTE | 2020-12-12 09:54 | PN_ITS ---
Patient Problems: Active and Suspected Problems (Last Updated 10/03/20 @ 09:[address] Deann Calloway, [place]) UTI (urinary tract infection) (Acute) Severe hyperglycemia due to diabetes mellitus (Acute) Severe sepsis (Acute) Infection of left foot (Acute) Subjective: Patient seen and examined resting comfortably. Patient denies any new pedal complaints. Patient denies any nausea, fever, chills, chest pain, shortness of breath, cough, streaking, purulence, vomiting. Patient relates he hit his foot on the side of the bed which caused him some pain last night. Patient is also complaining of constipation - Physical Exam Vitals/I&O's: Vital Signs Temp Pulse Resp BP Pulse Ox 97.8 F 60 16 117/63 97 12/12/20 08:29 12/12/20 08:29 12/12/20 08:29 12/12/20 08:29 12/12/20 08:29 Oxygen Flow Rate (L/min) 2 Oxygen Delivery Method Room Air Weight: 77.4 kg Body Mass Index (BMI) 25.4 Finger Stick Blood Glucose 415 Intake and Output for Last 24 Hours 12/10/20 12/11/20 12/12/20 23:59 23:59 23:59 Intake Total 1186.50 / 1346.50 1108.50 / 1108.50 50 / 50 Output Total 1475 / 2375 2275 / 2275 850 / 850 Balance -288.50 / -1028.50 -1166.50 / -1166.50 -800 / -800 General: Alert, Oriented x3 HEENT: Atraumatic Extremities: Capillary Refill Less than 3 Seconds, No Calf Tenderness, Diminished Peripheral Pulses, Edema, Tenderness Skin: Ulcer/ Wound - Left heel. Malodor much improved, no purulent drainage, serous drainage noted but improved, surrounding erythema and edema to lower extremity improved, probes to bone, some granulation tissue noted, undermining to the 6 and 10:00 positions, skin is atrophic and hairless Musculoskeletal: Muscle Wasting, Tenderness Neurological: - - Lack of epicritic sensation consistent with neuropathy Psych/Mental Status: Normal Affect, Appropriate Microbiology Past 72 Hours 12/09/20 12:00 Bone - Left Foot Gram Stain - Final 12/09/20 12:00 Bone - Left Foot Wound Culture - Preliminary Morganella morganii sp morgani Proteus sp. Staphylococcus aureus 12/09/20 12:00 Bone - Left Foot Anaerobic Culture - Preliminary Checking for anaerobes, further studies to follow. 12/09/20 09:30 Wound Drainage - Aerobic & Anaerobic Swabs Gram Stain - Final 12/09/20 09:30 Wound Drainage - Aerobic & Anaerobic Swabs Wound Culture - Preliminary Proteus mirabilis Morganella morganii sp morgani Gram positive organism 12/09/20 09:30 Wound Drainage - Aerobic & Anaerobic Swabs Anaerobic Culture - Preliminary Checking for anaerobes, further studies to follow. 12/10/20 13:30 Mucosa - Nasopharyngeal SARS-CoV-2 Antigen (Rapid) - Final 12/10/20 12:55 Stool Stool Occult Blood (CURTIS) - Final 12/07/20 20:35 Blood Culture (Wb) - Anticubital Left Bacteria Detection (PCR) - Final 12/07/20 20:35 Blood Culture (Wb) - Anticubital Left Blood Culture - Final Lactobacillus acidophilus 12/07/20 20:35 Blood Culture (Wb) - Anticubital Right Blood Culture - Preliminary No growth in 48 hours. 12/07/20 21:03 Urine, Clean Catch Urine Culture - Final Proteus mirabilis Laboratory Results 12/11/20 11:21: POC Glucose 248 H 12/11/20 16:29: POC Glucose 282 H 12/11/20 20:51: POC Glucose 304 H 12/12/20 06:02: POC Glucose 180 H 12/12/20 06:15: WBC 10.7, RBC 4.60, Hgb 12.8 L, Hct 39.8 L, MCV 86.5, MCH 27.8, MCHC 32.2, RDW Std Deviation 41.1, RDW Coeff of Cheri 13.1, Plt Count 359, MPV 9.0, Immature Gran % (Auto) 0.700, Neut % (Auto) 65.5, Lymph % (Auto) 22.0, [place] % (Auto) 7.8, Eos % (Auto) 3.5, Baso % (Auto) 0.5, Absolute Neuts (auto) 7.0, Absolute Lymphs (auto) 2.34, Nucleated RBC % 0 12/12/20 06:15: Sodium 135 L, Potassium 4.4, Chloride 100, Carbon Dioxide 33.0 H , Anion Gap 2 L, BUN 27 H, Creatinine 1.02, Estim Creat Clear Calc 78.53, Est GFR (MDRD) Af Amer 95, Est GFR (MDRD) Non-Af 79, BUN/Creatinine Ratio 26.5 H, Glucose 193 H, Calcium 8.7, Total Bilirubin 0.30, AST 21, ALT 30, Alkaline Phosphatase 105, Total Protein 7.4, Albumin 2.2 L, Globulin 5.2 H, Albumin/Globulin Ratio 0.4 L 12/12/20 06:15: Vancomycin Trough 5.1 Current Medications Acetaminophen (Acetaminophen 325 Mg Tablet) 650 mg PO Q6H PRN PRN PRN Reason: Pain Score 1-10/Temp > 100.7 F Last Admin: 12/12/20 00:33 Dose: 650 mg Documented by: Dextrose (Dextrose 50%-Water 25 Gm/50 Ml Disp.Syrin) 0 gm IV X1 PRN; Protocol PRN Reason: Hypoglycemia Docusate Sodium (Docusate Sodium 100 Mg Capsule) 100 mg PO BID PRN PRN PRN Reason: Constipation Enoxaparin Sodium (Enoxaparin 40 Mg/0.4 Ml Syringe) 40 mg SC DAILY@0600 [facility] Last Admin: 12/12/20 06:05 Dose: 40 mg Documented by: Glucagon (Glucagon 1 Mg/Ml Syringe) 1 mg IM .X1 PRN PRN Reason: Hypoglycemia Hydralazine HCl (Hydralazine 20 Mg/Ml Vial) 10 mg IV Q4H PRN PRN PRN Reason: SBP > 160 Sodium Chloride () 250 mls @ 15 mls/hr IV .[id number] PRN PRN Reason: Additional IVPB Infusion Last Infusion: 12/12/20 01:01 Dose: 15 mls/hr Documented by: Piperacillin Sod/Tazobactam (Sod 3.375 gm/ Sodium Chloride) 50 mls @ 12.5 mls/hr IV Q8 [facility] Last Admin: 12/12/20 06:04 Dose: 12.5 mls/hr Documented by: Insulin Glargine (Insulin Glargine 100 Units/Ml Pen) 35 units SC QHS [facility] Last Admin: 12/11/20 20:53 Dose: 35 unit Documented by: Insulin Human Lispro (Insulin Lispro 100 Unit/Ml Insuln.Pen) 0 unit SC ACHS [facility]; Protocol Last Admin: 12/12/20 06:04 Dose: 3 u Documented by: Morphine Sulfate (Morphine 2 Mg/Ml Syringe) 2 mg IV Q4H PRN PRN PRN Reason: pain 6-10/10 Nutritional Formula (Lactose Free) (Glucerna Shake 120 Ml Liquid) 120 ml PO 4X/DAY [facility] Last Admin: 12/12/20 08:23 Dose: 120 ml Documented by: Ondansetron HCl (Ondansetron 4 Mg/2 Ml Vial) 4 mg IV Q8H PRN PRN PRN Reason: NAUSEA/VOMITING Oxycodone HCl (Oxycodone 5 Mg Tablet) 5 mg PO Q4H PRN PRN PRN Reason: Pain Score 6-10 Last Admin: 12/11/20 12:04 Dose: 5 mg Documented by: Pantoprazole Sodium (Pantoprazole Sodium 40 Mg Tablet) 40 mg PO BID [facility] Last Admin: 12/12/20 08:23 Dose: 40 mg Documented by: Sodium Chloride (0.9% Saline Lock 10 Ml Syringe) 10 - 40 ml IV UD PRN PRN Reason: SALINE FLUSH Last Admin: 12/08/20 18:20 Dose: 10 ml Documented by: Medical Necessity - Tobacco Use Smoking Status: Former smoker Tobacco Use: Cigarettes Assessment/Plan All Active Problems (Last Updated 10/03/20 @ 09:[address] Deann Calloway, [facility]) UTI (urinary tract infection) (Acute) Severe hyperglycemia due to diabetes mellitus (Acute) Severe sepsis (Acute) Wound of foot (Acute) Hyperglycemia (Acute) Noncompliance with medication regimen (Acute) Infection of left foot (Acute) Left foot pain (Acute) Left heel ulceration to level of bone Diabetes with neuropathy Left foot cellulitis UTI Bacteremia WILLARD-resolved Hyperglycemia-improved RA Patient seen and examined Patient presented with total contact cast with epi cord graft application noted to left lower extremity. Wound care nurse removed casting dressing and related there was significant malodor with minor amounts of purulent drainage from 6 o'clock position undermining of ulceration. Some malodor was expected due to graft application. There was no further purulent drainage expressed upon my examination several hours later. Patient has history of osteomyelitis to this heel which underwent surgical debridement and course of IV antibiotics in September 2020. Arterial study from October 28, 2020 demonstrate triphasic waveforms bilaterally and right NADIA of 1.01 and TBI of 1.12 and left NADIA of 1.16 and TBI of 1.34. This would suggest that patient has adequate perfusion for healing with possibility of some calcified vessels. There is concerned that infection might have returned or was never completely resolved. Wound noted to have improved in appearance with less fibrotic tissue and maceration and drainage than yesterday Patient noted to be bacteremic growing alphahemolytic bacteria and urine culture growing Proteus Mirabilis. Left foot swab and bone culture growing gram neg anselmo White blood cell count 12.9, ESR 73, CRP 74.6 and lactic acid of 3.9 on admission Hemoglobin A1c noted to be 8.9% on 12/08/2020 down from 12.8% beginning of September 2020 Wet-to-dry dressing changed today noted less serous drainage Continue IV antibiotics per ID Nonweightbearing left lower extremity X-ray and MRI reviewed. Left foot MRI showed: IMPRESSION: 1. Osteomyelitis of the calcaneus, increased compared to the prior study. 2. Signal abnormality in the plantar fascia consistent with inflammatory changes and suspected full-thickness tear. 3. Achilles tendinosis. Reviewed MRI results with the patient. Discussed that the infection has spread to about 90% of his calcaneus. Discussed that it is not possible for me to remove all the infected bone surgically and still give him a functional foot. Discussed that the possibility of removing any nidus of infection surgically but no nidus or abscesses were seen on MRI to remove surgically. Also on exam no further purulent drainage that was expressed by wound nurse yesterday was seen nor was any particular area of bone worse than the other and overall wound looked improved from yesterday. Discussed treatment with long-term course of IV antibiotics to remove the infection. Discussed if heel infection will spreads or worsens the next surgical level of amputation would be a BKA. Discussed that this is not necessary at this time but it may be necessary in the future and wanted to prepare patient for this possibility. Discussed potentially doing HBO therapy upon discharge at wound care center to help remove infection and promote healing for this recurrent osteomyelitis. Discussed wound VAC therapy to help draw remaining infection and promote healing. Discussed importance of nonweightbearing as the bone is weakened from the infection to prevent any fractures of the calcaneus bone. I highly recommend placement in a facility for this patient in order to allow healing long-term course of IV antibiotics, physical therapy, and wound VAC therapy to give him the best potential outcome. DC planning to SNF later today. Will place wound VAC at facility. All questions answered Podiatry will continue to follow next please contact if any questions or concerns Edie Armendariz DPM [facility] [phone] This note was generated with [employer] dictation software. It may contain incorrect words, spelling, and punctuation that were not noted in checking the note before signing.
[2020-12-12] MEDS: Docusate Sodium 100 MG Capsule PO (10:14)
--- NOTE | 2020-12-12 11:00 | DS.PCM_ITS ---
Discharge Date and Diagnosis - Problem List Patient Problems: Active and Suspected Problems (Last Updated 10/03/20 @ 09:[address] Deann Calloway DPM) UTI (urinary tract infection) (Acute) Severe hyperglycemia due to diabetes mellitus (Acute) Severe sepsis (Acute) Infection of left foot (Acute) Date of Admission: 12/07/20 Date of Discharge: 12/12/20 - Primary Discharge Diagnosis Acute Problems: Active Problems (Last Updated 10/03/20 @ 09:[address] Deann Calloway DPM) 1. Acute severe sepsis secondary to acute complicated Proteus mirabilis UTI and #2 2. Left lower extremity Chronic Diabetic Wound with Acute GNR Osteomyelitis involving ~90% Calcaneus with wound culture noting Morganella Morganella, Proteus and staph aureus as well as anaerobic cocci evident with final cultures pending at patient transition to [facility] facility 3. ? GI bleed with anemia, lower suspicion, negative stool guaiac, stable hemoglobins 4. Acute kidney injury secondary to #1, #2, improved 5. 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 Hypokalemia 7. Chronic COPD and questionable BENNIE 8. History of DVT/PE 9. Rheumatoid arthritis - Secondary Discharge Diagnosis Chronic Problems: Chronic Problems (Last Updated 10/03/20 @ 09:[address] 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 Procedures: EKG, PICC line placement Summary of Care Provided: The patient is a 60 y/o M w/ PMHx: Diabetes mellitus type II with neuropathy, Chronic COPD, Rheumatoid arthritis, Hx of PE who presented to the [facility] ED on 12/07/20 with history of severe dysuria x4 to 5 days with urine noted to be foul-s melling with no fever or chills at that time and patient description of possible blood-tinged stools. ED evaluation with patient noted to be afebrile, tachycardic hemodynamically stable with CBC with WC 14 with left shift, sodium 128, chloride 90, creatinine 1.67 with glucose elevated to 517, lactic acid 3.9, urinalysis with elevated leukocyte esterase and greater than 100 WBCs. Patient initially admitted to the ICU however given clinical improvement 12/08/2020 transitioned medical surgical floor, lactic acid elevation resolved, continued judicious hydration, continued IV Rocephin pending urine cultures for speciation and sensitivities; however given appearance LLE as noted #2 transitioned to vanc and zosyn with initially noted 12/08/20 1/2 Bld Cx w/ GPC unclear if chains/clusters resulted as lactobacillus acidophilus with negative MRSA screen for #2 therefore transitioned per infectious disease to continued IV Zosyn antibiotic therapy with plan continued IV antibiotics x 6-week with stop date 01/20/2021 with planned weekly BMP, CMP and ESR with currently surgical cultures with staph aureus and gram-negative anselmo x2 organisms pending results, UCx w/ proteus mirabilis sensitive to Zosyn. 12/10/20 PICC placement. Podiatry consulted and following. Casting removed which had been placed at the [facility]. Wound RN consulted and following concurrently. 12/09/2020 LLE MRI w/ evidence osteomyelitis at the calcaneus increased from prior study with signal abnormality also in the plantar fascia consistent with inflammatory changes with potentially a full-thickness tear as well as Achilles tendinosis. 12/09/2020 bone cultures with prelim growth noting Morganella, Proteus, staph aureus as well as anaerobic culture with anaerobic cocci, final cultures pending with initial Morganella Chirag I susceptibilities to ertapenem, gentamicin, and imipenem, Zosyn, Tobra mycin, Bactrim with and sensitive to Levaquin, ciprofloxacin and resistance to ampicillin and Unasyn as well as Ancef. During admission some concern for possible GI bleed as patient noted on presentation blood-tinged stools with initial hemoglobin upon presentation 14.6, repeat 11.1 following overnight aggressive hydration given severe sepsis presentation, guaiac requested which was eventually obtained on 12/10/2020 and noted to be negative, 12/08/20 Hgb 11.8-->12/09/20 Hgb 12.5-->12/12/20 Hgb 12.8, stable, suspect no GI bleed but to be cautious patient was referred at discharge to surgery for consideration future endoscopies if felt appropriate and continued on Protonix. Patient upon presentation with acute kidney injury likely secondary to his acute presentation with UTI and osteomyelitis of the left foot/heel. Admission BUN/Cr 14/1.67, prior baseline creatinine noted to be 0.8-1.0, judiciously hydrated, 12/12/2020 BUN/creatinine 27/1.02, encourage continued monitoring. During admission hemoglobin A1c obtained given presentation and noted to be 8.9%, continued patient diabetic regimen and encourage strongly appropriate diabetic diet, nutrition consulted for education and teaching and noted to patient possible future need for alteration of his insulin glargine regiment and possible consideration for scheduled short acting insulin as well as sliding scale. Patient once clinically appropriate discharge to [facility] facilities 12/12/2020 with plan continued IV antibiotic therapy with PICC line with IV Zosyn with continued monitoring per infectious disease and continued close assessment of his blood sugars with further regimen alteration if ongoing hyperglycemia as well as continued VAC dressing changes at facility and follow- up with podiatry. DAY OF DISCHARGE PROGRESS NOTE: Subjective: Patient without acute event overnight per self and nursing report. Patient currently reporting some discomfort to the left lower extremity, 3-4 out of 10, not requesting any medication and notes it is improved since the evening prior as he had bumped it and had significant pain at that time. Patient evaluated by podiatry today with wet-to-dry dressing change with still plan for VAC placement at facility. Patient denies fever, chills, nausea, emesis, abdominal pain, chest pain or dyspnea. Patient agreeable to discharge to [facility] facility for ongoing IV antibiotic therapy and wound care as well as VAC placement and continuation. Patient will be discharged with follow- up with primary care physician within 3-5 days in addition to podiatry follow-up within 1 week at the wound care center in addition to referral for concerns for bloody stools which reported upon presentation although guaiac is negative at this time and hemoglobin is stabilized. Objective: T 97.8, heart 60, BP 117/63, respiratory rate 16, 97% on room air. Physical Examination: General: awake, alert, oriented x 3 and cooperative, seated upright at the medical surgical bed, mildly fatigued but improved from prior. Skin: normal color, turgor, no icterus, cyanosis except noted left lower extremity, left lower extremity plantar foot wound with dressing in place, dressing change 12/12/2020 per podiatry with improved appearance, 2.2 x 3 x 1.2 cm, undermined by 1.1 cm initially noted primarily at 6 and 10:00 positions per podiatry, less odorous, no drainage, some serous drainage but lessened, erythema and edema resolving. HEENT: AT/NC, EOMI, PERRLA, MMM. Lungs: Diminished breath sounds, greater bases, normal effort, no rales, ronchi or wheezing. Heart: Regular rate and rhythm; no gallop, rub audible. Abdomen: soft, NTTP, resolved prior suprapubic discomfort, ND, normal BS. Extremities: no cyanosis or clubbing, see skin. Neurological: patient awake, alert, oriented as noted; cognitive function intact; pupils equally reactive to light and accomodation; cranial nerves II-XII grossly normal, moving all 4 extremities currently nonweightbearing to left lower extremity given acute presentation as noted, no focal deficits, strength improving, moderately globally decreased secondary to acute presentation and inability to use left lower extremity. Psychiatric: affect appears calm today, no obvious current depression. Assessment and Plan: Please see hospital summary above. Patient Problems: Active and Suspected Problems (Last Updated 10/03/20 @ 09:[address] Deann Calloway, [facility]) UTI (urinary tract infection) (Acute) Severe hyperglycemia due to diabetes mellitus (Acute) Severe sepsis (Acute) Infection of left foot (Acute) - Physical Exam Vitals/I&O's: Vital Signs Temp Pulse Resp BP Pulse Ox 98.5 F 81 18 118/64 97 12/12/20 03:49 12/12/20 03:49 12/12/20 03:49 12/12/20 03:49 12/12/20 03:49 Oxygen Flow Rate (L/min) 2 Oxygen Delivery Method Room Air Weight: 170 lb 3.15 oz Body Mass Index (BMI) 25.4 Finger Stick Blood Glucose 415 Intake and Output for Last 24 Hours 12/10/20 12/11/20 12/12/20 23:59 23:59 23:59 Intake Total 1186.50 / 1346.50 1108.50 / 1108.50 50 / 50 Output Total 1475 / 2375 2275 / 2275 850 / 850 Balance -288.50 / -1028.50 -1166.50 / -1166.50 -800 / -800 Microbiology Past 72 Hours 12/09/20 12:00 Bone - Left Foot Gram Stain - Final 12/09/20 12:00 Bone - Left Foot Wound Culture - Preliminary Gram negative anselmo Gram negative anselmo#2 Staphylococcus aureus 12/09/20 12:00 Bone - Left Foot Anaerobic Culture - Preliminary Checking for anaerobes, further studies to follow. 12/09/20 09:30 Wound Drainage - Aerobic & Anaerobic Swabs Gram Stain - Final 12/09/20 09:30 Wound Drainage - Aerobic & Anaerobic Swabs Wound Culture - Preliminary Proteus sp. Gram negative anselmo Gram positive organism 12/09/20 09:30 Wound Drainage - Aerobic & Anaerobic Swabs Anaerobic Culture - Preliminary Checking for anaerobes, further studies to follow. 12/10/20 13:30 Mucosa - Nasopharyngeal SARS-CoV-2 Antigen (Rapid) - Final 12/10/20 12:55 Stool Stool Occult Blood (CURTIS) - Final 12/07/20 20:35 Blood Culture (Wb) - Anticubital Left Bacteria Detection (PCR) - Final 12/07/20 20:35 Blood Culture (Wb) - Anticubital Left Blood Culture - Final Lactobacillus acidophilus 12/07/20 20:35 Blood Culture (Wb) - Anticubital Right Blood Culture - Preliminary No growth in 48 hours. 12/07/20 21:03 Urine, Clean Catch Urine Culture - Final Proteus mirabilis Laboratory Results 12/11/20 06:49: POC Glucose 221 H 12/11/20 11:21: POC Glucose 248 H 12/11/20 16:29: POC Glucose 282 H 12/11/20 20:51: POC Glucose 304 H 12/12/20 06:02: POC Glucose 180 H 12/12/20 06:15: WBC 10.7, RBC 4.60, Hgb 12.8 L, Hct 39.8 L, MCV 86.5, MCH 27.8, MCHC 32.2, RDW Std Deviation 41.1, RDW Coeff of Cheri 13.1, Plt Count 359, MPV 9.0, Immature Gran % (Auto) 0.700, Neut % (Auto) 65.5, Lymph % (Auto) 22.0, Stokes % (Auto) 7.8, Eos % (Auto) 3.5, Baso % (Auto) 0.5, Absolute Neuts (auto) 7.0, Absolute Lymphs (auto) 2.34, Nucleated RBC % 0 12/12/20 06:15: Sodium Pending, Potassium Pending, Chloride Pending, Carbon Dioxide Pending, Anion Gap Pending, BUN Pending, Creatinine Pending, Est GFR (MDRD) Af Amer Pending, Est GFR (MDRD) Non-Af Pending, BUN/Creatinine Ratio Pending, Glucose Pending, Calcium Pending, Total Bilirubin Pending, AST Pending, ALT Pending, Alkaline Phosphatase Pending, Total Protein Pending, Albumin Pending 12/12/20 06:15: Vancomycin Trough Pending Current Medications Acetaminophen (Acetaminophen 325 Mg Tablet) 650 mg PO Q6H PRN PRN PRN Reason: Pain Score 1-10/Temp > 100.7 F Last Admin: 12/12/20 00:33 Dose: 650 mg Documented by: Dextrose (Dextrose 50%-Water 25 Gm/50 Ml Disp.Syrin) 0 gm IV X1 PRN; Protocol PRN Reason: Hypoglycemia Enoxaparin Sodium (Enoxaparin 40 Mg/0.4 Ml Syringe) 40 mg SC DAILY@0600 [facility] Last Admin: 12/12/20 06:05 Dose: 40 mg Documented by: Glucagon (Glucagon 1 Mg/Ml Syringe) 1 mg IM .X1 PRN PRN Reason: Hypoglycemia Hydralazine HCl (Hydralazine 20 Mg/Ml Vial) 10 mg IV Q4H PRN PRN PRN Reason: SBP > 160 Sodium Chloride () 250 mls @ 15 mls/hr IV .[id number] PRN PRN Reason: Additional IVPB Infusion Last Infusion: 12/12/20 01:01 Dose: 15 mls/hr Documented by: Piperacillin Sod/Tazobactam (Sod 3.375 gm/ Sodium Chloride) 50 mls @ 12.5 mls/hr IV Q8 [facility] Last Admin: 12/12/20 06:04 Dose: 12.5 mls/hr Documented by: Insulin Glargine (Insulin Glargine 100 Units/Ml Pen) 35 units SC QHS [facility] Last Admin: 12/11/20 20:53 Dose: 35 unit Documented by: Insulin Human Lispro (Insulin Lispro 100 Unit/Ml Insuln.Pen) 0 unit SC [facility]; Protocol Last Admin: 12/12/20 06:04 Dose: 3 u Documented by: Morphine Sulfate (Morphine 2 Mg/Ml Syringe) 2 mg IV Q4H PRN PRN PRN Reason: pain 6-10/10 Nutritional Formula (Lactose Free) (Glucerna Shake 120 Ml Liquid) 120 ml PO 4X/DAY [facility] Last Admin: 12/11/20 20:53 Dose: 120 ml Documented by: Ondansetron HCl (Ondansetron 4 Mg/2 Ml Vial) 4 mg IV Q8H PRN PRN PRN Reason: NAUSEA/VOMITING Oxycodone HCl (Oxycodone 5 Mg Tablet) 5 mg PO Q4H PRN PRN PRN Reason: Pain Score 6-10 Last Admin: 12/11/20 12:04 Dose: 5 mg Documented by: Pantoprazole Sodium (Pantoprazole Sodium 40 Mg Tablet) 40 mg PO BID [facility] Last Admin: 12/11/20 20:53 Dose: 40 mg Documented by: Sodium Chloride (0.9% Saline Lock 10 Ml Syringe) 10 - 40 ml IV UD PRN PRN Reason: SALINE FLUSH Last Admin: 12/08/20 18:20 Dose: 10 ml Documented by: Home Medications: Medications to take at Discharge Acetaminophen [Tylenol Tablet] 650 mg PO Q6H PRN PRN tab 10/06/20 Insulin Glargine [Lantus SoloStar Pen] 35 units SC QHS 12/07/20 Glucerna Shake 120 ml PO 4X/DAY liquid 12/11/20 Insulin Lispro [Humalog KwikPen] See Protocol [facility] insuln.pen 12/11/20 Oxycodone [Oxyir] 5 mg PO Q4H PRN PRN 5 Days #20 tab 12/11/20 Pantoprazole Sodium [Protonix] 40 mg PO BID tab 12/11/20 Piperacil/Tazobactam [Zosyn] 3.375 gm IV Q8 40 Days #120 vial 12/11/20 Following Prescriptions Were Given to Patient: Oxycodone [Oxyir] 5 mg PO Q4H PRN PRN 5 Days #20 tab PRN Reason: pain 4-10/10 Prescription Printed Piperacil/Tazobactam [Zosyn] 3.375 gm IV Q8 40 Days #120 vial Prescription Printed Primary Care Physician: Care Physician,No Primary [Primary Care Provider] - Please Follow Up With: Kaylen Horton MD When: Please establish with Dr. Horton for routine primary care within 3-5 days. Please Follow Up With: Edie Armendariz DPM When: Follow-up in 1 week at the wound care center for re-evaluation. Please Follow Up With: Patito Rodriguez MD When: Follow-up outpatient for concerns GI bleed. Disposition: Detention facility Minutes spent on discharge:: 35 Patient Condition:: Fair Medical Necessity - Tobacco Use Smoking Status: Former smoker Tobacco Use: Cigarettes Meaningful Use Info Meaningful Use Diagnoses (Choose all that apply): None applicable Inpatient E&M: [id number] [facility]
[2020-12-12 11:50] LABS: Bedside Glucose 261 mg/dL (70-110)
[2020-12-12] MEDS: oxyCODONE 5 MG Tablet PO (13:16)
== END 2020-12-12 14:25 | disposition skilled nursing facility (03) | DRG 710 ==
LOC: ED 22:01 → ICU 22:51 → MS3 12-08 08:01
PROVIDERS: Podiatrist Foot & Ankle Surgery; Admitting Provider Student in an Organized Health Care Education/Training Program; Emergency Provider Emergency Medicine; Visit Provider Family Medicine
DX: A41.59 Other Gram-negative sepsis (principal); R65.20 Severe sepsis without septic shock; N39.0 Urinary tract infection, site not specified; B96.4 Proteus (mirabilis) (morganii) as the cause of diseases classified elsewhere; R31.9 Hematuria, unspecified; N17.9 Acute kidney failure, unspecified; E11.69 Type 2 diabetes mellitus with other specified complication; M86.172 Other acute osteomyelitis, left ankle and foot; E11.621 Type 2 diabetes mellitus with foot ulcer; L97.426 Non-pressure chronic ulcer of left heel and midfoot with bone involvement without evidence of necrosis; L03.116 Cellulitis of left lower limb; E11.65 Type 2 diabetes mellitus with hyperglycemia; E11.42 Type 2 diabetes mellitus with diabetic polyneuropathy; E87.6 Hypokalemia; E87.2 Acidosis; K92.1 Melena; J44.9 Chronic obstructive pulmonary disease, unspecified; M06.9 Rheumatoid arthritis, unspecified; G47.33 Obstructive sleep apnea (adult) (pediatric); Z20.822 Contact with and (suspected) exposure to COVID-19; Z23 Encounter for immunization; Z59.0 Homelessness; Z91.14 Patient's other noncompliance with medication regimen; Z79.4 Long term (current) use of insulin; Z79.899 Other long term (current) drug therapy; Z86.711 Personal history of pulmonary embolism; Z86.718 Personal history of other venous thrombosis and embolism; Z87.891 Personal history of nicotine dependence
CPT/HCPCS: 36415; 36569; 71046; 73630; 73720; 74176; 80048; 80053; 80202; 81001; 82274; 82962; 83036; 83605; 83735; 85014; 85018; 85025; 85610; 85652; 85730; 86140; 87040; 87070; 87075; 87077; 87086; 87088; 87149; 87176; 87186; 87205; 87426; 87640; 97110; 97162; 97166; 97530; 97535; 99284; A9575; J7030; J7040; J7050; 90686; A4216

== ENCOUNTER 2020-12-23 10:15 | Outpatient (RCR) | payer MEDICAID, SELFPAY ==
[2020-11-30 00:34] VITALS: BP 152/82; PULSE 105; RESP 20; TEMP 37
[2020-12-07 23:48] VITALS: BMI 25.4
[2020-12-16 10:48] VITALS: BP 130/72; PULSE 95; RESP 16; TEMP 36; BMI 25.4
--- NOTE | 2020-12-16 12:59 | PCM.WC.PN ---
(1) Osteomyelitis Status: Chronic Code(s): M86.9 - Osteomyelitis, unspecified (2) Non-pressure chronic ulcer of other part of left foot with necrosis of bone Status: Chronic Code(s): L97.524 - Non-pressure chronic ulcer of other part of left foot with necrosis of bone (3) Type 2 diabetes mellitus with diabetic polyneuropathy Status: Chronic Code(s): E11.42 - Type 2 diabetes mellitus with diabetic polyneuropathy (4) Calcaneal gait Status: Chronic Code(s): R26.89 - Other abnormalities of gait and mobility (5) Achilles rupture, left Status: Chronic Qualifiers: Code(s): S86.012A - Strain of left Achilles tendon, initial encounter (6) Rheumatoid arthritis Status: Chronic Code(s): M06.9 - Rheumatoid arthritis, unspecified (7) Severe sepsis Status: Resolved Code(s): A41.9 - Sepsis, unspecified organism; R65.20 - Severe sepsis without septic shock Type of Wound Date of Service: 12/16/20 Chief Complaint: left heel ulcer with osteomyelitis History of Wound: This 60-year-old uncontrolled diabetic follows up today for chronic left heel wound. He was recently hospitalized for sepsis after he missed a follow-up appointment and developed an infection. He was not advised to wait and was supposed to come in to have his cast removed and reevaluation. During his hospital admission he was stabilized and was diagnosed with osteomyelitis of the calcaneus. He is now residing at [facility] for managed wound care and IV antibiotics. He is also under the management of infectious disease physician, Dr. De Leon. He denies lower extremity pain, fever, chill, nausea, vomiting. His case is complicated with uncontrolled diabetes, calcaneus gait limb position due to prior ruptured Achilles tendon, and noncompliance. Progress of Wound: Worsening status compared to a couple weeks ago and improved status compared to recent hospital admission - Physical Exam Vital Signs Temp Pulse Resp BP 96.8 F L 95 16 130/72 H 12/16/20 10:48 12/16/20 10:48 12/16/20 10:48 12/16/20 10:48 General: Alert, Oriented x3, Cooperative, No apparent distress HEENT: Atraumatic Extremities: No cyanosis, Capillary Refill Less than 3 Seconds, No Calf Tenderness - Negative Deb and Jameson sign left, Diminished Peripheral Pulses, Edema - Hindfoot, - - Compartments remain soft to palpate left lower extremity. Increased ankle dorsiflexion secondary to ruptured Achilles tendon, left Skin: Ulcer/ Wound - Plantar heel ulcers deep with positive probe to bone at the posterior aspect. There is granulation tissue development over the distal 80%. No purulence, erythema, odor, streaking, eschar or laura necrosis today, - - Adjacent skin is hairless and atrophic Wound Measurements and Assessment WC - Nurse 1 - General Ulcer Measurement Start: 12/16/20 10:47 Freq: Status: Active Protocol: Activity Type Activity Date Activity User E-Sign Co-Sign Detail Recorded Client Recorded Date Recorded By Document 12/16/20 10:48 [facility] [id number] 12/16/20 11:05 [facility] 12/16/20 10:48 Wound Center Nurse 1 [Ulcer Assessment] #2- L MEDIAL HEEL -Combined with other wound No -Current Size (cm) - Length 4 -Current Size (cm) - Width 1.5 -Current Size (cm) - Depth 0.1 -Total Square Cm 6.0 -Date of Last Picture (Recall this 12/16/20 field) -Photo Taken Yes -Epithelialization None Present -Tunneling No -Undermining/Tunneling No -Circular Undermining No -Exudate Amt Small -Exudate Type Serosanguineous -Wound Margin Distinct, Outline Attached -Granulation Amt Large (67-100%) -Granulation Quality [place] -Slough/Fibrin Yes -Necrosis Amt Small (1-33%) -Necrotic Tissue Type Adherent Slough -Texture (Teodora-wound Skin Appearance) Assessed, Scarring -Moisture (Teodora-wound Skin Appearance Assessed, ) Maceration -Color (Teodora-wound Skin Appearance) Assessed, Erythema -Temperature (Teodora-wound Skin No Abnormality Appearance) (Pt Warm) -Tenderness on Palpation (Teodora-wound Yes Skin Appearance) -Ulcer Cleansing SOAPY WATER -Foul Odor after Cleansing No -Anesthetic Used 4% Lidocaine Solution #1- L HEEL -Combined with other wound No -Current Size (cm) - Length 4 -Current Size (cm) - Width 1.5 -Current Size (cm) - Depth 0.1 -Total Square Cm 6.0 -Date of Last Picture (Recall this 12/16/20 field) -Photo Taken Yes -Epithelialization None Present -Tunneling No -Undermining/Tunneling No -Circular Undermining No -Exudate Amt Medium -Exudate Type Serosanguineous -Wound Margin Distinct, Outline Attached -Granulation Amt Small (1-33%) -Granulation Quality Red -Slough/Fibrin Yes -Necrosis Amt Large (67-100%) -Necrotic Tissue Type Adherent Slough -Texture (Teodora-wound Skin Appearance) Assessed, Scarring -Moisture (Teodora-wound Skin Appearance Assessed, ) Maceration -Color (Teodora-wound Skin Appearance) Assessed, Erythema -Temperature (Teodora-wound Skin No Abnormality Appearance) (Pt Warm) -Tenderness on Palpation (Teodora-wound Yes Skin Appearance) -Ulcer Cleansing soapy water -Foul Odor after Cleansing No -Anesthetic Used 4% Lidocaine Solution WC - Nurse 2 - General Ulcer CM Notes Start: 12/16/20 10:47 Freq: Status: Active Protocol: Activity Type Activity Date Activity User E-Sign Co-Sign Detail Recorded Client Recorded Date Recorded By Document 12/16/20 12:53 PL [id number] 12/16/20 12:54 PL 12/16/20 12:53 Wound Center Nurse 2 [Procedure/Treatment] #2- L MEDIAL HEEL -Time 11:29 -Correct Patient Yes -Correct Side, Site, Position Yes -Correct Procedure Yes -Procedure Performed Yes -Type of Procedure Debridement -Clinical Debridement Subcutaneous -Tissue Removed Subcutaneous -Post Debridement (cm) - Length 4 -Post Debridement (cm) - Width 1.5 -Post Debridement (cm) - Depth 0.1 -Total Square (Post) (cm) 6.0 -Area of Debridement (cm) - Length 4 -Area of Debridement (cm) - Width 1.5 -Total Square (Area) (cm) 6.0 -Tunneling No -Undermining/Tunneling No -Circular Undermining No -Wound/Ulcer Outcome Not Healed -Ulcer Cleansing Rinsed/ Irrigated with Saline -Foul Odor after Cleansing No -Bioengineered Tissue No -Debridement - Subq, 1st 20sq cm No #1- L HEEL -Time 11:29 -Correct Patient Yes -Correct Side, Site, Position Yes -Correct Procedure Yes -Procedure Performed Yes -Type of Procedure Debridement -Clinical Debridement Subcutaneous -Tissue Removed Subcutaneous -Post Debridement (cm) - Length 4.0 -Post Debridement (cm) - Width 1.5 -Post Debridement (cm) - Depth 0.1 -Total Square (Post) (cm) 6.00 -Area of Debridement (cm) - Length 4.0 -Area of Debridement (cm) - Width 1.5 -Total Square (Area) (cm) 6.00 -Tunneling No -Undermining/Tunneling No -Circular Undermining No -Wound/Ulcer Outcome Not Healed -Ulcer Cleansing Rinsed/ Irrigated with Saline -Foul Odor after Cleansing No -Bioengineered Tissue No -Debridement - Subq, 1st 20sq cm Yes [See Physician Procedure note for Specifics] Pain Scale: 0-10 Numeric [Pain] -Is Patient Pain Free? Yes - Nurse 3 - General Ulcer D/C NN Start: 12/16/20 10:47 Freq: Status: Active Protocol: Activity Type Activity Date Activity User E-Sign Co-Sign Detail Recorded Client Recorded Date Recorded By Document 12/16/20 12:10 [facility] [id number] 12/16/20 12:11 [facility] 12/16/20 12:10 Wound Care Nurse 3 [Wound Dressing] #2- L MEDIAL HEEL -Ulcer Cleansing Rinsed/ Irrigated with Saline -Foul Odor after Cleansing No -Negative Pressure Wound Therapy Continue -Setting (mmHg) 150 -Negative Pressure is Continuous -Primary Dressing Covered/Secured Dry Gauze & with Roll Gauze, Secured with Tape,Other -Other Covering PADDED W/ KERLIX, ABD, [place] TO SECURE -NPWT Application Charge ($) NPWT </= 50 sq cm #1- L HEEL -Primary Dressing Covered/Secured Dry Gauze & with Roll Gauze, Secured with Tape [Post Procedure Tolerated] -Treatment Response Procedure Tolerated Well Pain Scale: 0-10 Numeric [Pain] -Is Patient Pain Free? Yes - Visit Discharge [Visit Discharge Information] -Discharge Condition Stable -Ambulatory Status Wheelchair -Transportation [facility] TRAN[facility]ORT [Facility Notification] -Facility Type [facility] Assistant Care Facility Musculoskeletal: No Tenderness to Palpation of Joints or Extremities, Muscle Wasting, - - No pain with ulcer manipulation or debridement Neurological: - - Lack of epicritic sensation light touch is consistent with neuropathy status Psych/Mental Status: Normal Affect, Appropriate Debridement Note Post-Debridement Measurements/Treatment - Nurse 2 - General Ulcer CM Notes Start: 12/16/20 10:47 Freq: Status: Active Protocol: Activity Type Activity Date Activity User E-Sign Co-Sign Detail Recorded Client Recorded Date Recorded By Document 12/16/20 12:53 PL [id number] 12/16/20 12:54 PL 12/16/20 12:53 Wound Center Nurse 2 #2- L MEDIAL HEEL -Time 11:29 -Correct Patient Yes -Correct Side, Site, Position Yes -Correct Procedure Yes -Procedure Performed Yes -Type of Procedure Debridement -Clinical Debridement Subcutaneous -Tissue Removed Subcutaneous -Post Debridement (cm) - Length 4 -Post Debridement (cm) - Width 1.5 -Post Debridement (cm) - Depth 0.1 -Total Square (Post) (cm) 6.0 -Area of Debridement (cm) - Length 4 -Area of Debridement (cm) - Width 1.5 -Total Square (Area) (cm) 6.0 -Tunneling No -Undermining/Tunneling No -Circular Undermining No -Wound/Ulcer Outcome Not Healed -Ulcer Cleansing Rinsed/ Irrigated with Saline -Foul Odor after Cleansing No -Bioengineered Tissue No -Debridement - Subq, 1st 20sq cm No #1- L HEEL -Time 11:29 -Correct Patient Yes -Correct Side, Site, Position Yes -Correct Procedure Yes -Procedure Performed Yes -Type of Procedure Debridement -Clinical Debridement Subcutaneous -Tissue Removed Subcutaneous -Post Debridement (cm) - Length 4.0 -Post Debridement (cm) - Width 1.5 -Post Debridement (cm) - Depth 0.1 -Total Square (Post) (cm) 6.00 -Area of Debridement (cm) - Length 4.0 -Area of Debridement (cm) - Width 1.5 -Total Square (Area) (cm) 6.00 -Tunneling No -Undermining/Tunneling No -Circular Undermining No -Wound/Ulcer Outcome Not Healed -Ulcer Cleansing Rinsed/ Irrigated with Saline -Foul Odor after Cleansing No -Bioengineered Tissue No -Debridement - Subq, 1st 20sq cm Yes Pain Scale: 0-10 Numeric Is Patient Pain Free? Yes WC - Nurse 3 - General Ulcer D/C NN Start: 12/16/20 10:47 Freq: Status: Active Protocol: Activity Type Activity Date Activity User E-Sign Co-Sign Detail Recorded Client Recorded Date Recorded By Document 12/16/20 12:10 [facility] [id number] 12/16/20 12:11 [facility] 12/16/20 12:10 Wound Care Nurse 3 #2- L MEDIAL HEEL -Ulcer Cleansing Rinsed/ Irrigated with Saline -Foul Odor after Cleansing No -Negative Pressure Wound Therapy Continue -Setting (mmHg) 150 -Negative Pressure is Continuous -Primary Dressing Covered/Secured with Dry Gauze & Roll Gauze, Secured with Tape,Other -Other Covering PADDED W/ KERLIX, ABD, [place] TO SECURE -NPWT Application Charge ($) NPWT </= 50 sq cm #1- L HEEL -Primary Dressing Covered/Secured with Dry Gauze & Roll Gauze, Secured with Tape Treatment Response Procedure Tolerated Well Pain Scale: 0-10 Numeric Is Patient Pain Free? Yes WC - Visit Discharge Discharge Condition Stable Ambulatory Status Wheelchair Transportation ECF TRANSPORT Facility Type Intermediate Care Facility Wound debrided: plantar heel Laterality: Left Wound Grade/Stage: grade 3 Type of Debridement: Excisional debridement Anesthesia Used: 5% Lidocaine Gel Depth: in the subcutaneous layer Percentage of wound debrided: 100 Instrument Used: #15 blade Tissue Removed: fibrous, devitalized subcutaneous, biofilm, slough Severity: Fat Layer Exposed Amount of bleeding with debridement: Mild Bleeding Controlled with: Pressure Patient tolerated procedure well Assessment/Plan Active Problems (Last Updated 10/03/20 @ 09:[address] Deann Calloway, [facility]) Type 2 diabetes mellitus with diabetic polyneuropathy (Chronic) Calcaneal gait (Chronic) Non-pressure chronic ulcer of other part of left foot with necrosis of bone (Chronic) Achilles rupture, left (Chronic) Rheumatoid arthritis (Chronic) Osteomyelitis (Chronic) Assessment: Plantar left heel ulcer with bone (valadez grade 3). Osteomyelitis treated medically with IV antibiotics. Uncontrolled diabetes with neuropathy, updated hemoglobin A1c of 8.9%. Ruptured left Achilles tendon with calcaneus gait. ambulation difficulty Plan: I reviewed and discussed his case. Excisional debridement was performed as noted in the clinical panel. His wound VAC will be reapplied today at 150 mmHg continuous. It is noted he was previously approved for advanced wound healing products and this will be reconsidered once his ulcer site granulates in more and remained stable from an infection standpoint. Additional application of total contact cast will only be considered once he is transition off of the wound VAC in the future and if he is at a longterm facility where he can follow-up appropriately. To proceed forward with obtaining a knee roller or modified scooter. He was recently mid to the hospital for sepsis and exposed necrotic bone look at the plantar calcaneus which was sent to microbiology. He was diagnosed with osteomyelitis with the following bone growth: Morganella morganii, Proteus, MRSA, coag negative strep, anaerobic cocci. He is on IV vancomycin and Zosyn with anticipated end date of 01-20-21. He also had a prior blood culture with lactobacillus which was considered likely a contamination. His most recent labs from between to include the following: white blood cell count 10.7, ESR 73, C-reactive protein 54.6, creatinine 1.02, GFR 79. To follow-up with infectious disease specialist, Dr. De Leon within the next 2-3 weeks. Due to his osteomyelitis status I discussed the treatment option of hyperbaric oxygen therapy. The indications, benefits, risk, complications, anticipated daily visits and anticipated healing were discussed in detail. He denies history of collapsed lung, cardiac disease, or claustrophobia. It is noted he does have an elevated A1c level however this has improved compared to earlier this year. He also has a history of pulmonary embolism that was already treated in the past. We will start with confirming insurance coverage opportunity prior to completing any medical diagnostic data and physician clearance for this treatment course. It is noted he is at a longterm facility and this may also affect his insurance coverage. He will likely require long-term use of an ankle-foot orthotic due to his calcaneus style gait that is resulting from his ruptured Achilles tendon. Repair of this Achilles or arthrodesis of the ankle but only be considered if he was able to demonstrate appropriate postoperative care and remarkable improvement in lifestyle and hemoglobin A1c status. Consideration may also be given to percutaneous attempted Achilles reapproximation with a PARS type system. I recommend continuing with any nutritional supplementation available clinical correction. His noninvasive vascular studies were reviewed with triphasic PT and DP pulses bilateral. His right NADIA is 1.12 and left 1.16. His toe brachial index is 1.12 on the right and 1.34 on the left. There is no significant segmental pressure drop and therefore no arterial occlusive lesion is suspected. I answered his questions. To return to clinic in 1 week. Note: [employer] speech recognition supervisor wet pour software was used to create portions of this document. Sound-alike and misspelled words, as well as other supervisor wet pour errors may be contained in the documentation. The problems addressed require a moderate decision making level which includes one or more chronic illnesses (w/ exacerbation, progression, or side effects), two or more stable chronic illnesses, one undiagnosed new problem w/ uncertain prognosis, one acute illness with systemic symptoms, or one acute complicated injury. The medical decision making level is moderate. There is noted moderate risk of morbidity after considering this treatment plan and diagnostic data. Considerations were given to prescription management, decisions regarding surgical options, or social determinants of health.
[2020-12-23 10:38] VITALS: BP 104/66; PULSE 106; RESP 20; TEMP 36.1; BMI 25.4
--- NOTE | 2020-12-23 11:29 | PN.PCM_ITS ---
(1) Osteomyelitis Status: Chronic Code(s): M86.9 - Osteomyelitis, unspecified (2) Non-pressure chronic ulcer of other part of left foot with necrosis of bone Status: Chronic Code(s): L97.524 - Non-pressure chronic ulcer of other part of left foot with necrosis of bone (3) Type 2 diabetes mellitus with diabetic polyneuropathy Status: Chronic Code(s): E11.42 - Type 2 diabetes mellitus with diabetic polyneuropathy (4) Calcaneal gait Status: Chronic Code(s): R26.89 - Other abnormalities of gait and mobility (5) Achilles rupture, left Status: Chronic Qualifiers: Code(s): S86.012A - Strain of left Achilles tendon, initial encounter (6) Rheumatoid arthritis Status: Chronic Code(s): M06.9 - Rheumatoid arthritis, unspecified (7) Severe sepsis Status: Resolved Code(s): A41.9 - Sepsis, unspecified organism; R65.20 - Severe sepsis without septic shock Type of Wound Date of Service: 12/23/20 Chief Complaint: left heel ulcer with osteomyelitis History of Wound: This 60-year-old uncontrolled diabetic follows up today for chronic left heel wound. He was recently hospitalized for sepsis and osteomyelitis of the calcaneus. He is now residing at [facility] for managed wound care and IV antibiotics. He is also under the management of infectious disease physician, Dr. De Leon. He denies lower extremity pain, fever, chill, nausea, vomiting. His case is complicated with uncontrolled diabetes, calcaneus gait limb position due to prior ruptured Achilles tendon, and noncompliance. Progress of Wound: stabilizing - Physical Exam Vital Signs Temp Pulse Resp BP 97 F L 106 H 20 H 104/66 12/23/20 10:38 12/23/20 10:38 12/23/20 10:38 12/23/20 10:38 General: Alert, Oriented x3, Cooperative, No apparent distress Extremities: No cyanosis, Capillary Refill Less than 3 Seconds, No Calf Tenderness, Diminished Peripheral Pulses, Edema - mild Skin: Ulcer/ Wound - No purulence, odor, erythema or streaking. There is improved granulation tissue to the plantar heel and peripheral epithelialization noted. The posterior aspect of the ulcer still probes deeper to bone. There is no bogginess or fluctuance on palpation. Wound Measurements and Assessment WC - Nurse 1 - General Ulcer Measurement Start: 12/16/20 10:47 Freq: Status: Active Protocol: Activity Type Activity Date Activity User E-Sign Co-Sign Detail Recorded Client Recorded Date Recorded By Document 12/23/20 10:38 TREMAYNE [id number] 12/23/20 10:52 DL 12/23/20 10:38 Wound Center Nurse 1 [Ulcer Assessment] #2- L MEDIAL HEEL -Current Size (cm) - Length 0.5 -Current Size (cm) - Width 0.4 -Current Size (cm) - Depth 0.2 -Total Square Cm 0.20 -Photo Taken No -Exudate Amt Medium -Exudate Type Serosanguineous -Wound Margin Distinct, Outline Attached -Granulation Amt Large (67-100%) -Granulation Quality [place] -Necrosis Amt None Present (0 %) -Structure Exposed N/A -Texture (Teodora-wound Skin Appearance) Localized Edema -Moisture (Teodora-wound Skin Appearance Weeping ) -Color (Teodora-wound Skin Appearance) Erythema -Temperature (Teodora-wound Skin No Abnormality Appearance) (Pt Warm) -Tenderness on Palpation (Teodora-wound No Skin Appearance) -Ulcer Cleansing Wound Cleanser -Foul Odor after Cleansing No -Anesthetic Used 4% Lidocaine Solution #1- L HEEL -Current Size (cm) - Length 2.1 -Current Size (cm) - Width 2.4 -Current Size (cm) - Depth 1.5 -Total Square Cm 5.04 -Undermining/Tunneling Starts (O' 7 clock) -Undermining/Tunneling Ends (O'clock) 11 -Maximum Distance (cm) 2.4 -Exudate Amt Medium -Exudate Type Serosanguineous -Wound Margin Thickened & Rolled Under -Granulation Amt Medium (34-66%) -Granulation Quality Red -Necrosis Amt Medium (34-66%) -Necrotic Tissue Type Adherent Slough -Structure Exposed N/A -Texture (Teodora-wound Skin Appearance) Localized Edema ,Scarring -Moisture (Teodora-wound Skin Appearance Maceration ) -Color (Teodora-wound Skin Appearance) Erythema -Temperature (Teodora-wound Skin No Abnormality Appearance) (Pt Warm) -Tenderness on Palpation (Teodora-wound No Skin Appearance) -Ulcer Cleansing Wound Cleanser -Foul Odor after Cleansing No -Anesthetic Used 4% Lidocaine Solution WC - Nurse 2 - General Ulcer CM Notes Start: 12/16/20 10:47 Freq: Status: Active Protocol: Activity Type Activity Date Activity User E-Sign Co-Sign Detail Recorded Client Recorded Date Recorded By Document 12/23/20 11:19 JF [id number] 12/23/20 11:28 JF 12/23/20 11:19 Wound Center Nurse 2 [Procedure/Treatment] #2- L MEDIAL HEEL -Correct Patient No -Correct Side, Site, Position No -Correct Procedure No -Procedure Performed No -Tunneling No -Undermining/Tunneling No -Circular Undermining No -Wound/Ulcer Outcome Not Healed -Ulcer Cleansing Rinsed/ Irrigated with Saline -Foul Odor after Cleansing No -Bioengineered Tissue No -Debridement - Subq, 20sq cm No #1- L HEEL -Time 11:19 -Correct Patient Yes -Correct Side, Site, Position Yes -Correct Procedure Yes -Procedure Performed Yes -Type of Procedure Debridement -Clinical Debridement Subcutaneous -Tissue Removed Subcutaneous -Post Debridement (cm) - Length 2.6 -Post Debridement (cm) - Width 2.5 -Post Debridement (cm) - Depth 3 -Total Square (Post) (cm) 6.50 -Area of Debridement (cm) - Length 2.6 -Area of Debridement (cm) - Width 2.5 -Total Square (Area) (cm) 6.50 -Tunneling No -Undermining/Tunneling No -Circular Undermining No -Wound/Ulcer Outcome Not Healed -Ulcer Cleansing Rinsed/ Irrigated with Saline -Foul Odor after Cleansing No -Bioengineered Tissue No -Bleeding Controlled with Pressure -Offloading No -Treatment Response Procedure Tolerated Well -Debridement - Subq, 20sq cm Yes [See Physician Procedure note for Specifics] Pain Scale: 0-10 Numeric [Pain] -Is Patient Pain Free? Yes Musculoskeletal: No Tenderness to Palpation of Joints or Extremities, Muscle Wasting, - - Calcaneus gait position Neurological: - - Lack of normal epicritic sensation light touch is consistent with neuropathy status Psych/Mental Status: Normal Affect, Appropriate Debridement Note Post-Debridement Measurements/Treatment BOUCHRA - Nurse 2 - General Ulcer CM Notes Start: 12/16/20 10:47 Freq: Status: Active Protocol: Activity Type Activity Date Activity User E-Sign Co-Sign Detail Recorded Client Recorded Date Recorded By Document 12/16/20 12:53 PL [id number] 12/16/20 12:54 PL Document 12/23/20 11:19 JF [id number] 12/23/20 11:28 JF 12/16/20 12/23/20 12:53 11:19 Wound Center Nurse 2 #2- L MEDIAL HEEL -Time 11:29 -Correct Patient Yes No -Correct Side, Site, Position Yes No -Correct Procedure Yes No -Procedure Performed Yes No -Type of Procedure Debridement -Clinical Debridement Subcutaneous -Tissue Removed Subcutaneous -Post Debridement (cm) - Length 4 -Post Debridement (cm) - Width 1.5 -Post Debridement (cm) - Depth 0.1 -Total Square (Post) (cm) 6.0 -Area of Debridement (cm) - Length 4 -Area of Debridement (cm) - Width 1.5 -Total Square (Area) (cm) 6.0 -Tunneling No No -Undermining/Tunneling No No -Circular Undermining No No -Wound/Ulcer Outcome Not Healed Not Healed -Ulcer Cleansing Rinsed/ Rinsed/ Irrigated with Irrigated with Saline Saline -Foul Odor after Cleansing No No -Bioengineered Tissue No No -Debridement - Subq, 1st 20sq cm No No #1- L HEEL -Time 11: 11:19 -Correct Patient Yes Yes -Correct Side, Site, Position Yes Yes -Correct Procedure Yes Yes -Procedure Performed Yes Yes -Type of Procedure Debridement Debridement -Clinical Debridement Subcutaneous Subcutaneous -Tissue Removed Subcutaneous Subcutaneous -Post Debridement (cm) - Length 4.0 2.6 -Post Debridement (cm) - Width 1.5 2.5 -Post Debridement (cm) - Depth 0.1 3 -Total Square (Post) (cm) 6.00 6.50 -Area of Debridement (cm) - Length 4.0 2.6 -Area of Debridement (cm) - Width 1.5 2.5 -Total Square (Area) (cm) 6.00 6.50 -Tunneling No No -Undermining/Tunneling No No -Circular Undermining No No -Wound/Ulcer Outcome Not Healed Not Healed -Ulcer Cleansing Rinsed/ Rinsed/ Irrigated with Irrigated with Saline Saline -Foul Odor after Cleansing No No -Bioengineered Tissue No No -Bleeding Controlled with Pressure -Offloading No -Treatment Response Procedure Tolerated Well -Debridement - Subq, 1st 20sq cm Yes Yes Pain Scale: 0-10 Numeric Is Patient Pain Free? Yes Yes - Nurse 3 - General Ulcer D/C NN Start: 12/16/20 10:47 Freq: Status: Active Protocol: Activity Type Activity Date Activity User E-Sign Co-Sign Detail Recorded Client Recorded Date Recorded By Document 12/16/20 12:10 [facility] [id number] 12/16/20 12:11 [facility] 12/16/20 12:10 Wound Care Nurse 3 #2- L MEDIAL HEEL -Ulcer Cleansing Rinsed/ Irrigated with Saline -Foul Odor after Cleansing No -Negative Pressure Wound Therapy Continue -Setting (mmHg) 150 -Negative Pressure is Continuous -Primary Dressing Covered/Secured with Dry Gauze & Roll Gauze, Secured with Tape,Other -Other Covering PADDED W/ KERLIX, ABD, [place] TO SECURE -NPWT Application Charge ($) NPWT </= 50 sq cm #1- L HEEL -Primary Dressing Covered/Secured with Dry Gauze & Roll Gauze, Secured with Tape Treatment Response Procedure Tolerated Well Pain Scale: 0-10 Numeric Is Patient Pain Free? Yes - Visit Discharge Discharge Condition Stable Ambulatory Status Wheelchair Transportation [facility] TRANSPORT Facility Type Severity Of Illness Coordinator Care Facility Wound debrided: plantar heel Laterality: Left Wound Grade/Stage: grade 3 Type of Debridement: Excisional debridement Anesthesia Used: 5% Lidocaine Gel Depth: in the subcutaneous layer Percentage of wound debrided: 100 Instrument Used: #15 blade Tissue Removed: fibrous, devitalized subcutaneous, biofilm, slough Severity: Fat Layer Exposed Amount of bleeding with debridement: Mild Bleeding Controlled with: Pressure Patient tolerated procedure well Assessment/Plan Active Problems (Last Updated 10/03/20 @ 09:[address] Deann Calloway, [facility]) Type 2 diabetes mellitus with diabetic polyneuropathy (Chronic) Calcaneal gait (Chronic) Non-pressure chronic ulcer of other part of left foot with necrosis of bone (Chronic) Achilles rupture, left (Chronic) Rheumatoid arthritis (Chronic) Osteomyelitis (Chronic) Assessment: Plantar left heel ulcer with bone (valadez grade 3). Osteomyelitis treated medically with IV antibiotics. Uncontrolled diabetes with neuropathy, updated hemoglobin A1c of 8.9%. Ruptured left Achilles tendon with calcaneus gait. ambulation difficulty Plan: I reviewed and discussed his case. Excisional debridement was performed as noted in the clinical panel. His wound VAC will be reapplied today at 150 mmHg continuous. It is noted he was previously approved for advanced wound hea ling products and this will be reconsidered once his ulcer site granulates in more and remained stable from an infection standpoint. Additional application of total contact cast will only be considered once he is transition off of the wound VAC in the future and if he is at a alf facility where he can follow-up appropriately. To proceed forward with obtaining a knee roller or modified scooter. He was recently mid to the hospital for sepsis and exposed necrotic bone look at the plantar calcaneus which was sent to microbiology. He was diagnosed with osteomyelitis with the following bone growth: Morganella morganii, Proteus, MRSA, coag negative strep, anaerobic cocci. He is on IV vancomycin and Zosyn with anticipated end date of 01-20-21. He also had a prior blood culture with lactobacillus which was considered likely a contamination. His most recent labs from between to include the following: white blood cell count 10.7, ESR 73, C-reactive protein 54.6, creatinine 1.02, GFR 79. To follow-up with infectious disease specialist, Dr. De Leon within the next 2-3 weeks. Due to his osteomyelitis status I discussed the treatment option of hyperbaric oxygen therapy. The indications, benefits, risk, complications, anticipated daily visits and anticipated healing were discussed in detail. He denies history of collapsed lung, cardiac disease, or claustr ophobia. It is noted he does have an elevated A1c level however this has improved compared to earlier this year. He also has a history of pulmonary embolism that was already treated in the past. We will start with confirming insurance coverage opportunity prior to completing any medical diagnostic data and physician clearance for this treatment course. It is noted he is at a alf facility and this may also affect his insurance coverage. He will be scheduled next week for hyperbaric oxygen therapy clearance with nurse practitioner, Maxine Salomon as well. His prescreening medical diagnostic data has been completed at [facility] during his recent hospitalization including EKG and chest x-ray. His chest x-ray demonstrated hyperinflation otherwise his lungs were clear. His EKG did demonstrate prior evidence of septal myocardial infarction with age undetermined. Additional work-up may be recommended prior to proceeding with hyperbaric oxygen therapy. He will likely require long-term use of an ankle-foot orthotic due to his calcaneus style gait that is resulting from his ruptured Achilles tendon. Repair of this Achilles or arthrodesis of the ankle but only be considered if he was able to demonstrate appropriate postoperative care and remarkable improvement in lifestyle and hemoglobin A1c status. Consideration may also be given to percutaneous attempted Achilles reapproximation with a PARS type system. I recommend continuing with any nutritional supplementation available clinical prison. His noninvasive vascular studies were reviewed with triphasic PT and DP pulses bilateral. His right NADIA is 1.12 and left 1.16. His toe brachial index is 1.12 on the right and 1.34 on the left. There is no significant segmental pressure drop and therefore no arterial occlusive lesion is suspected. I answered his questions. To return to clinic in 1 week. Note: [employer] speech recognition warp knit operator software was used to create portions of this document. Sound-alike and misspelled words, as well as other warp knit operator errors may be contained in the documentation. The problems addressed require a moderate decision making level which includes one or more chronic illnesses (w/ exacerbation, progression, or side effects), two or more stable chronic illnesses, one undiagnosed new problem w/ uncertain prognosis, one acute illness with systemic symptoms, or one acute complicated injury. The medical decision making level is moderate. There is noted moderate risk of morbidity after considering this treatment plan and diagnostic data. Considerations were given to prescription management, decisions regarding surgical options, or social determinants of health.
== END 2020-12-27 23:59 ==
LOC: WC 10:15
PROVIDERS: Visit Provider Podiatrist
DX: E11.621 Type 2 diabetes mellitus with foot ulcer (principal); L97.424 Non-pressure chronic ulcer of left heel and midfoot with necrosis of bone; E11.69 Type 2 diabetes mellitus with other specified complication; M86.672 Other chronic osteomyelitis, left ankle and foot; E11.65 Type 2 diabetes mellitus with hyperglycemia; E11.42 Type 2 diabetes mellitus with diabetic polyneuropathy; M06.9 Rheumatoid arthritis, unspecified; S86.012A Strain of left Achilles tendon, initial encounter; X58.XXXA Exposure to other specified factors, initial encounter; Y93.9 Activity, unspecified; Y92.9 Unspecified place or not applicable; Y99.9 Unspecified external cause status; Z91.19 Patient's noncompliance with other medical treatment and regimen; R26.2 Difficulty in walking, not elsewhere classified; Z79.4 Long term (current) use of insulin; I25.2 Old myocardial infarction; Z86.711 Personal history of pulmonary embolism
CPT/HCPCS: 11042; 97605

== ENCOUNTER 2021-01-27 08:00 | Outpatient (RCR) | payer MEDICAID, SELFPAY ==
[2020-12-28 00:29] VITALS: BP 104/66; PULSE 106; RESP 20; TEMP 36.1
[2020-12-30 10:07] VITALS: BP 147/96; PULSE 113; RESP 16; TEMP 36.4; BMI 25.4
--- NOTE | 2020-12-30 11:20 | HBO.CON.PC_ITS ---
(1) Severe hyperglycemia due to diabetes mellitus Status: Acute Code(s): E11.65 - Type 2 diabetes mellitus with hyperglycemia (2) COPD (chronic obstructive pulmonary disease) Status: Chronic Code(s): J44.9 - Chronic obstructive pulmonary disease, unspec ified (3) 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 Status: Chronic Code(s): L97.523 - Non-pressure 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 (4) Ulcer of left heel Status: Chronic Code(s): L97.429 - Non-pressure chronic ulcer of left heel and midfoot with unspecified severity History of Present Illness Date of Service: 12/30/20 Presenting Chief Complaint: left heel ulcer with osteomyelitis The patient is a 60 year old M who [facility] evaluate the possibility of initiating hyperbaric oxygen therapy for treatment of [] DFU Villela 3 left foot heel His CBC shows some anemia at 12.9. Kidney functions are good patient also has bilateral cerumen impactions chest x-ray was normal EKG was good within normal limits patient takes insulin for his diabetes no orals he is a type II diabetic weekends we will apply for hyperbaric oxygen protocol at 2 BANDAR for 90 minutes without an air break 1 treatment per day delivered Monday through Monday and a total of 30 treatments to be ordered. Once patient is referred to ENT for an ear cleaning patient will be ready to go Past Medical History Chronic Problems (Last Updated 10/03/20 @ 09:[address] 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, left (Chronic) Diabetes (Chronic) COPD (chronic obstructive pulmonary disease) (Chronic) Rheumatoid arthritis (Chronic) 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 (Chronic) Osteomyelitis (Chronic) Allergies/Adverse Reactions: Allergies onion Allergy (Verified 12/07/20 19:18) Food Allergy SWELLING Home Medications: Ambulatory Orders Medication Instructions Recorded Acetaminophen [Tylenol Tablet] 650 mg PO Q6H PRN PRN tab 10/06/20 Insulin Glargine [Lantus SoloStar 35 units SC QHS 12/07/20 Pen] Glucerna Shake 120 ml PO 4X/DAY liquid 12/11/20 Insulin Lispro [Humalog KwikPen] See Protocol SC ACHS insuln.pen 12/11/20 Pantoprazole Sodium [Protonix] 40 mg PO BID tab 12/11/20 Piperacil/Tazobactam [Zosyn] 3.375 gm IV Q8 40 Days #120 vial 12/11/20 Paternal Family History: - - His father from an industrial accident. Maternal Family History: - - Denies knowledge of maternal medical history Smoking Status: Former smoker Review of Systems Constitutional: Denies: Chills, Fever Eyes: Denies: Blurred vision, Drainage, Pain HEENT: Reports: -. Denies: Difficulty Hearing, Difficulty Swallowing, Sore Throat, Visual Changes Cardiovascular: Denies: Chest Pain, Palpitations, Syncope Respiratory: Denies: Cough, Shortness of Breath Gastrointestinal: Denies: Abdominal Pain, Nausea, Vomiting Genitourinary: Denies: Dysuria, Frequency Musculoskeletal: Denies: Joint Pain, Muscle pain Skin: Reports: - - Open wound to left heel. Denies: Jaundice, Rash Neurological: Denies: Balance problems, Change in Speech, Difficulty swallowing, Focal weakness Psychiatric: Denies: Anxiety, Depression Endocrine: Denies: Change in Body Habitus Hematologic/ Lymphatic: Denies: Adenopathy - Physical Exam Vital Signs Temp Pulse Resp BP 97.5 F L 113 H 16 147/96 H 12/30/20 10:07 12/30/20 10:07 12/30/20 10:07 12/30/20 10:07 General: Oriented x3, Cooperative, Well developed HEENT: Atraumatic, PERRLA, - - Bilateral ears full of wax Oral: Moist Mucosa Neck: Supple, No JVD Lungs: Clear to auscultation, Normal air movement Cardiovascular: Regular rate, Regular Rhythm Abdomen: Bowel Sounds Present, Soft, Non Tender, No Hepato-splenomegaly Extremities: No clubbing, No edema Skin: Ulcer/ Wound - DFU left foot heel Villela 3 Wound Measurements and Assessment WC - Nurse 1 - General Ulcer Measurement Start: 12/30/20 10:07 Freq: Status: Active Protocol: Activity Type Activity Date Activity User E-Sign Co-Sign Detail Recorded Client Recorded Date Recorded By Document 12/30/20 10:07 [facility] [id number] 12/30/20 10:23 [facility] 12/30/20 10:07 Wound Center Nurse 1 [Ulcer Assessment] #2- L MEDIAL HEEL -Combined with other wound No -Current Size (cm) - Length 0.2 -Current Size (cm) - Width 0.2 -Current Size (cm) - Depth 0.6 -Total Square Cm 0.04 -Photo Taken No -Epithelialization None Present -Tunneling No -Undermining/Tunneling No -Circular Undermining No -Exudate Amt Medium -Exudate Type Purulent -Wound Margin Distinct, Outline Attached -Granulation Amt Large (67-100%) -Granulation Quality Red -Slough/Fibrin Yes -Necrosis Amt Small (1-33%) -Necrotic Tissue Type Adherent Slough -Texture (Teodora-wound Skin Appearance) Assessed, Localized Edema -Moisture (Teodora-wound Skin Appearance Assessed ) -Color (Teodora-wound Skin Appearance) Assessed, Erythema -Temperature (Teodora-wound Skin No Abnormality Appearance) (Pt Warm) -Tenderness on Palpation (Teodora-wound Yes Skin Appearance) -Ulcer Cleansing Wound Cleanser -Foul Odor after Cleansing No -Anesthetic Used 4% Lidocaine Solution #1- L HEEL -Combined with other wound No -Current Size (cm) - Length 2 -Current Size (cm) - Width 2.5 -Current Size (cm) - Depth 0.5 -Total Square Cm 5.0 -Photo Taken No -Epithelialization None Present -Tunneling No -Undermining/Tunneling Yes -Undermining/Tunneling Starts (O' 12 clock) -Undermining/Tunneling Ends (O'clock) 3 -Maximum Distance (cm) 2.5 -Circular Undermining No -Exudate Amt Medium -Exudate Type Serosanguineous -Wound Margin Distinct, Outline Attached -Granulation Amt Large (67-100%) -Granulation Quality Red -Slough/Fibrin Yes -Necrosis Amt Small (1-33%) -Necrotic Tissue Type Adherent Slough -Texture (Teodora-wound Skin Appearance) Assessed, Scarring -Moisture (Teodora-wound Skin Appearance Assessed, ) Maceration -Color (Teodora-wound Skin Appearance) Assessed, Erythema,Palor -Temperature (Teodora-wound Skin No Abnormality Appearance) (Pt Warm) -Tenderness on Palpation (Teodora-wound No Skin Appearance) -Ulcer Cleansing Wound Cleanser -Foul Odor after Cleansing No -Anesthetic Used 4% Lidocaine Solution Musculoskeletal: No Tenderness to Palpation of Joints or Extremities Lymphatic: No Cervical, Supraclavicular, or Inguinal Adenopathy Neurological: Cranial nerves II-XII grossly intact, Neuro grossly intact Psych/Mental Status: Normal Affect, Appropriate, Alert and oriented to time, place, person, mood and affect Assessment/Plan Active Problems (Last Updated 10/03/20 @ 09:[address] Deann Calloway, [facility]) Severe hyperglycemia due to diabetes mellitus (Acute) Ulcer of left heel (Chronic) COPD (chronic obstructive pulmonary disease) (Chronic) 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 (Chronic) LIZETH BURGOS is an appropriate candidate for hyperbaric oxygen therapy. Hyperbaric Oxygen Therapy would be an essential adjunct in the resolution and treatment of this patient's presenting problem. This patient has sufficient physiologic and psychological stamina to undergo the rigors of hyperbaric oxygen therapy. As such, I recommend the following: Hyperbaric Oxygen Treatments at 2.0 BANDAR in 100% Oxygen for 90 minutes per treatment, for [] treatments. I have discussed the possible benefits of hyperbaric oxygen therapy with this patient. I have also presented and described the risks, including: air gas embolism, pneumothorax, central nervous system and pulmonary oxygen toxicity, flash pulmonary edema, hypoglycemia, reversible visual refractive changes, ear and sinus kirsten-trauma, and confinement anxiety. The patient has verbalized understanding of these risks, and is still wanting to undergo hyperbaric oxygen therapy. The patient understands the significant time and transportation commitment involved in daily treatments of up to two hours duration and has stated that they are willing to commit to this therapy. - HBOT Diagnosis Villela III Diabetic Lower Extremity Ulcer, Heel (707.14/250.8) Bilateral cerumen impaction removal
--- NOTE | 2020-12-30 12:45 | PCM.WC.PN ---
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 He was recently hospitalized for sepsis and osteomyelitis of the calcaneus. He is now residing at [facility] for managed wound care and IV antibiotics. He is also under the management of infectious disease physician, Dr. De Leon and is scheduled to be seen this afternoon. He denies lower extremity pain, fever, chill, nausea, vomiting. His case is complicated with uncontrolled diabetes, calcaneus gait limb position due to prior ruptured Achilles tendon, and noncompliance. He has a wound vac in place today. Progress of Wound: Improving - Physical Exam Vital Signs Temp Pulse Resp BP 97.5 F L 113 H 16 147/96 H 12/30/20 10:07 12/30/20 10:07 12/30/20 10:07 12/30/20 10:07 General: Alert, Oriented x3, Cooperative, No apparent distress HEENT: Atraumatic Extremities: No cyanosis, Capillary Refill Less than 3 Seconds, No Calf Tenderness - Negative Jameson sign, Diminished Peripheral Pulses, Edema - Mild Skin: Ulcer/ Wound - Plantar heel ulcer with granular base and some deeper probing aspect at the plantar proximal aspect that seems to communicate with the medial aspect of the heel. This is a little bit boggy this area with lanced; no purulent drainage was noted. No necrosis or odor Wound Measurements and Assessment WC - Nurse 1 - General Ulcer Measurement Start: 12/30/20 10:07 Freq: Status: Active Protocol: Activity Type Activity Date Activity User E-Sign Co-Sign Detail Recorded Client Recorded Date Recorded By Document 12/30/20 10:07 [facility] [id number] 12/30/20 10:23 [facility] 12/30/20 10:07 Wound Center Nurse 1 [Ulcer Assessment] #2- L MEDIAL HEEL -Combined with other wound No -Current Size (cm) - Length 0.2 -Current Size (cm) - Width 0.2 -Current Size (cm) - Depth 0.6 -Total Square Cm 0.04 -Photo Taken No -Epithelialization None Present -Tunneling No -Undermining/Tunneling No -Circular Undermining No -Exudate Amt Medium -Exudate Type Purulent -Wound Margin Distinct, Outline Attached -Granulation Amt Large (67-100%) -Granulation Quality Red -Slough/Fibrin Yes -Necrosis Amt Small (1-33%) -Necrotic Tissue Type Adherent Slough -Texture (Teodora-wound Skin Appearance) Assessed, Localized Edema -Moisture (Teodora-wound Skin Appearance Assessed ) -Color (Teodora-wound Skin Appearance) Assessed, Erythema -Temperature (Teodora-wound Skin No Abnormality Appearance) (Pt Warm) -Tenderness on Palpation (Teodora-wound Yes Skin Appearance) -Ulcer Cleansing Wound Cleanser -Foul Odor after Cleansing No -Anesthetic Used 4% Lidocaine Solution #1- L HEEL -Combined with other wound No -Current Size (cm) - Length 2 -Current Size (cm) - Width 2.5 -Current Size (cm) - Depth 0.5 -Total Square Cm 5.0 -Photo Taken No -Epithelialization None Present -Tunneling No -Undermining/Tunneling Yes -Undermining/Tunneling Starts (O' 12 clock) -Undermining/Tunneling Ends (O'clock) 3 -Maximum Distance (cm) 2.5 -Circular Undermining No -Exudate Amt Medium -Exudate Type Serosanguineous -Wound Margin Distinct, Outline Attached -Granulation Amt Large (67-100%) -Granulation Quality Red -Slough/Fibrin Yes -Necrosis Amt Small (1-33%) -Necrotic Tissue Type Adherent Slough -Texture (Teodora-wound Skin Appearance) Assessed, Scarring -Moisture (Teodora-wound Skin Appearance Assessed, ) Maceration -Color (Teodora-wound Skin Appearance) Assessed, Erythema,Palor -Temperature (Teodora-wound Skin No Abnormality Appearance) (Pt Warm) -Tenderness on Palpation (Teodora-wound No Skin Appearance) -Ulcer Cleansing Wound Cleanser -Foul Odor after Cleansing No -Anesthetic Used 4% Lidocaine Solution WC - Nurse 2 - General Ulcer CM Notes Start: 12/30/20 10:07 Freq: Status: Active Protocol: Activity Type Activity Date Activity User E-Sign Co-Sign Detail Recorded Client Recorded Date Recorded By Document 12/30/20 11:12 [facility] [id number] 12/30/20 11:23 [facility] 12/30/20 11:12 Wound Center Nurse 2 [Procedure/Treatment] #2- L MEDIAL HEEL -Time 11:12 -Correct Patient Yes -Correct Side, Site, Position Yes -Correct Procedure Yes -Procedure Performed Yes -Type of Procedure Debridement -Clinical Debridement Subcutaneous -Tissue Removed Subcutaneous -Post Debridement (cm) - Length 0.3 -Post Debridement (cm) - Width 0.3 -Post Debridement (cm) - Depth 0.4 -Total Square (Post) (cm) 0.09 -Area of Debridement (cm) - Length 0.3 -Area of Debridement (cm) - Width 0.3 -Total Square (Area) (cm) 0.09 -Tunneling No -Undermining/Tunneling No -Circular Undermining No -Wound/Ulcer Outcome Not Healed -Ulcer Cleansing Rinsed/ Irrigated with Saline -Foul Odor after Cleansing No -Bioengineered Tissue No -Bleeding Controlled with Pressure -Offloading No -Treatment Response Procedure Tolerated Well -Debridement - Subq, 1st 20sq cm Yes #1- L HEEL -Time 11:21 -Correct Patient Yes -Correct Side, Site, Position Yes -Correct Procedure Yes -Procedure Performed Yes -Type of Procedure Debridement -Clinical Debridement Subcutaneous -Tissue Removed Subcutaneous -Post Debridement (cm) - Length 2.1 -Post Debridement (cm) - Width 2.6 -Post Debridement (cm) - Depth 0.5 -Total Square (Post) (cm) 5.46 -Area of Debridement (cm) - Length 2.1 -Area of Debridement (cm) - Width 2.6 -Total Square (Area) (cm) 5.46 -Tunneling No -Undermining/Tunneling No -Circular Undermining No -Wound/Ulcer Outcome Not Healed -Ulcer Cleansing Rinsed/ Irrigated with Saline -Foul Odor after Cleansing No -Bioengineered Tissue Yes -Type of Bioengineered Tissue Epifix Mesh -Expiration Date 08/30/25 -Product Lot Number [id number] -Percent Used 100 -Lot number of Saline Used [id number] -Bleeding Controlled with Pressure -Offloading No -Treatment Response Procedure Tolerated Well -Debridement - Subq, 1st 20sq cm No -Apply Skin Sub - 1st 25 sq cm - Feet 1 -Epifix Mesh (per sq cm) 11 [See Physician Procedure note for Specifics] Pain Scale: 0-10 Numeric [Pain] -Is Patient Pain Free? Yes - Nurse 3 - General Ulcer D/C NN Start: 12/30/20 10:07 Freq: Status: Active Protocol: Activity Type Activity Date Activity User E-Sign Co-Sign Detail Recorded Client Recorded Date Recorded By Document 12/30/20 11:29 [facility] [id number] 12/30/20 11:32 [facility] 12/30/20 11:29 Wound Care Nurse 3 [Wound Dressing] #2- L MEDIAL HEEL -Foul Odor after Cleansing No -Other Dressing BOLSTERED GAUZE . COMING BACK LATER W/ VAC SUPPLIES FOR APPLICATION -Primary Dressing Covered/Secured Dry Gauze & with Roll Gauze, Secured with Tape #1- L HEEL -Primary Dressing Applied Other -Other Dressing BOLSTERED GAUZE PER Sridhar WEISS RN -Primary Dressing Covered/Secured Dry Gauze & with Roll Gauze, Secured with Tape -Other Covering COMING BACK LATER FOR VAC APPLICATION [Post Procedure Tolerated] -Treatment Response Procedure Tolerated Well Pain Scale: 0-10 Numeric [Pain] -Is Patient Pain Free? Yes - Visit Discharge [Visit Discharge Information] -Discharge Condition Stable -Ambulatory Status Wheelchair -Transportation Ambulance [Facility Notification] -Facility Type Home Service Director Care Facility Musculoskeletal: No Tenderness to Palpation of Joints or Extremities, Muscle Wasting, - Neurological: - - Lack of epicritic sensation light touch is consistent with neuropathic status. Calcaneus gait position secondary to ruptured Achilles tendon. Presents in wheelchair Psych/Mental Status: Normal Affect, Appropriate Debridement Note Post-Debridement Measurements/Treatment - Nurse 2 - General Ulcer CM Notes Start: 12/30/20 10:07 Freq: Status: Active Protocol: Activity Type Activity Date Activity User E-Sign Co-Sign Detail Recorded Client Recorded Date Recorded By Document 12/30/20 11:12 [id number] 12/30/20 11:23 [facility] 12/30/20 11:12 Wound Center Nurse 2 #2- L MEDIAL HEEL -Time 11:12 -Correct Patient Yes -Correct Side, Site, Position Yes -Correct Procedure Yes -Procedure Performed Yes -Type of Procedure Debridement -Clinical Debridement Subcutaneous -Tissue Removed Subcutaneous -Post Debridement (cm) - Length 0.3 -Post Debridement (cm) - Width 0.3 -Post Debridement (cm) - Depth 0.4 -Total Square (Post) (cm) 0.09 -Area of Debridement (cm) - Length 0.3 -Area of Debridement (cm) - Width 0.3 -Total Square (Area) (cm) 0.09 -Tunneling No -Undermining/Tunneling No -Circular Undermining No -Wound/Ulcer Outcome Not Healed -Ulcer Cleansing Rinsed/ Irrigated with Saline -Foul Odor after Cleansing No -Bioengineered Tissue No -Bleeding Controlled with Pressure -Offloading No -Treatment Response Procedure Tolerated Well -Debridement - Subq, 1st 20sq cm Yes #1- L HEEL -Time 11:21 -Correct Patient Yes -Correct Side, Site, Position Yes -Correct Procedure Yes -Procedure Performed Yes -Type of Procedure Debridement -Clinical Debridement Subcutaneous -Tissue Removed Subcutaneous -Post Debridement (cm) - Length 2.1 -Post Debridement (cm) - Width 2.6 -Post Debridement (cm) - Depth 0.5 -Total Square (Post) (cm) 5.46 -Area of Debridement (cm) - Length 2.1 -Area of Debridement (cm) - Width 2.6 -Total Square (Area) (cm) 5.46 -Tunneling No -Undermining/Tunneling No -Circular Undermining No -Wound/Ulcer Outcome Not Healed -Ulcer Cleansing Rinsed/ Irrigated with Saline -Foul Odor after Cleansing No -Bioengineered Tissue Yes -Type of Bioengineered Tissue Epifix Mesh -Expiration Date 08/30/25 -Product Lot Number [id number] -Percent Used 100 -Lot number of Saline Used [id number] -Bleeding Controlled with Pressure -Offloading No -Treatment Response Procedure Tolerated Well -Debridement - Subq, 1st 20sq cm No -Apply Skin Sub - 1st 25 sq cm - Feet 1 -Epifix Mesh (per sq cm) 11 Pain Scale: 0-10 Numeric Is Patient Pain Free? Yes WC - Nurse 3 - General Ulcer D/C NN Start: 12/30/20 10:07 Freq: Status: Active Protocol: Activity Type Activity Date Activity User E-Sign Co-Sign Detail Recorded Client Recorded Date Recorded By Document 12/30/20 11:29 [facility] [id number] 12/30/20 11:32 [facility] 12/30/20 11:29 Wound Care Nurse 3 #2- L MEDIAL HEEL -Foul Odor after Cleansing No -Other Dressing BOLSTERED GAUZE . COMING BACK LATER W/ VAC SUPPLIES FOR APPLICATION -Primary Dressing Covered/Secured with Dry Gauze & Roll Gauze, Secured with Tape #1- L HEEL -Primary Dressing Applied Other -Other Dressing BOLSTERED GAUZE PER R ISELA RN -Primary Dressing Covered/Secured with Dry Gauze & Roll Gauze, Secured with Tape -Other Covering COMING BACK LATER FOR VAC APPLICATION Treatment Response Procedure Tolerated Well Pain Scale: 0-10 Numeric Is Patient Pain Free? Yes WC - Visit Discharge Discharge Condition Stable Ambulatory Status Wheelchair Transportation Ambulance Facility Type Home Service Director Care Facility Wound debrided: plantar heel Laterality: Left Wound Grade/Stage: grade 3 Type of Debridement: Excisional debridement Anesthesia Used: 5% Lidocaine Gel Depth: in the subcutaneous layer Percentage of wound debrided: 100 Instrument Used: #15 blade Tissue Removed: fibrous, devitalized subcutaneous, biofilm, slough Severity: Fat Layer Exposed Amount of bleeding with debridement: Mild Bleeding Controlled with: Pressure Patient tolerated procedure well Assessment/Plan Active Problems (Last Updated 10/03/20 @ 09:[address] 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 Osteomyelitis treated medically with IV antibiotics. Uncontrolled diabetes with neuropathy, updated hemoglobin A1c of 8.9%. Ruptured left Achilles tendon with calcaneus gait. ambulation difficulty Plan: I reviewed and discussed his case. Excisional debridement was performed as noted in the clinical panel. Clinically his infection status has improved and he has continued wound peripheral epithelialization. Think communicating area to the medial heel was lanced with a 15 blade scalpel after alcohol preparation and verbal consent. No purulence was noted. This will allow fluid to exit the secondary point to reduce pressure or bacterial colonization. It is noted he was previously approved for advanced wound healing products and this was applied today after verbal consent was performed. Epifix was applied and was further secured with a wound veil and Steri-Strips. The wound VAC will be reapplied at 125 mmHg. Care will be taken to apply a bolster gauze to the medial aspect of the heel where there was a small stab incision made today. Additional application of total contact cast will only be considered once he is transition off of the wound VAC in the future and if he is at a snf facility where he can follow-up appropriately. To proceed forward with obtaining a knee roller or modified scooter. To continue with wheelchair at this time. He was recently discharged from [facility] for sepsis and exposed necrotic bone look at the plantar calcaneus which was sent to microbiology. He was diagnosed with osteomyelitis with the following bone growth: Morganella morganii, Proteus, MRSA, coag negative strep, anaerobic cocci. He is on IV vancomycin and Zosyn with anticipated end date of 01-20-21. He also had a prior blood culture with lactobacillus which was considered likely a contamination. His most recent labs from between to include the following: white blood cell count 10.7, ESR 73, C-reactive protein 54.6, creatinine 1.02, GFR 79. To follow-up with infectious disease specialist, Dr. De Leon as scheduled. Due to his osteomyelitis status I discussed the treatment option of hyperbaric oxygen therapy. The indications, benefits, risk, complications, anticipated daily visits and anticipated healing were discussed in detail. He denies history of collapsed lung, cardiac disease, or claustrophobia. It is noted he does have an elevated A1c level however this has improved compared to earlier this year. He also has a history of pulmonary embolism that was already treated in the past. His diagnostic data including labs, EKG and echocardiogram and chest x-ray were reviewed from recent evaluation during his last hospitalization. He completed the hyperbaric oxygen therapy educational videos and feels like he would be comfortable proceeding if this gets approved by his insurance and his skilled facility. He was also seen and advised to proceed forward with HBO clearance from Maxine Salomon, clinical nurse practitioner this morning as well. He will likely require long-term use of an ankle-foot orthotic due to his calcaneus style gait that is resulting from his ruptured Achilles tendon. Repair of this Achilles or arthrodesis of the ankle but only be considered if he was able to demonstrate appropriate postoperative care and remarkable improvement in lifestyle and hemoglobin A1c status. Consideration may also be given to percutaneous attempted Achilles reapproximation with a PARS type system. I recommend continuing with any nutritional supplementation available clinical prison. His noninvasive vascular studies were reviewed with triphasic PT and DP pulses bilateral. His right NADIA is 1.12 and left 1.16. His toe brachial index is 1.12 on the right and 1.34 on the left. There is no significant segmental pressure drop and therefore no arterial occlusive lesion is suspected. I answered his questions. To return to clinic in 1 week. Note: [employer] speech recognition administrative resources associate software was used to create portions of this document. Sound-alike and misspelled words, as well as other administrative resources associate errors may be contained in the documentation. The problems addressed require a moderate decision making level which includes one or more chronic illnesses (w/ exacerbation, progression, or side effects), two or more stable chronic illnesses, one undiagnosed new problem w/ uncertain prognosis, one acute illness with systemic symptoms, or one acute complicated injury. The medical decision making level is moderate. There is noted moderate risk of morbidity after considering this treatment plan and diagnostic data. Considerations were given to prescription management, decisions regarding surgical options, or social determinants of health.
[2021-01-06 10:53] VITALS: BP 148/75; PULSE 108; RESP 22; TEMP 36.6; BMI 25.4
--- NOTE | 2021-01-06 11:57 | PN.PCM_ITS ---
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 He was recently hospitalized for sepsis and osteomyelitis of the calcaneus. He is now residing at [facility] for managed wound care and IV antibiotics. He is also under the management of infectious disease physician, Dr. De Leon and is scheduled to be seen next week. The patient missed his last scheduled appointment. He denies lower extremity pain, fever, chill, nausea, vomiting. His case is complicated with uncontrolled diabetes, calcaneus gait limb position due to prior ruptured Achilles tendon, and noncompliance. He has a wound vac in place today and had epifix advanced product applied last week. Progress of Wound: Improving - Physical Exam Vital Signs Temp Pulse Resp BP 98 F 108 H 22 H 148/75 H 01/06/21 10:53 01/06/21 10:53 01/06/21 10:53 01/06/21 10:53 General: Alert, Oriented x3, Cooperative, No apparent distress HEENT: Atraumatic Extremities: No cyanosis, Capillary Refill Less than 3 Seconds, No Calf Tenderness, Diminished Peripheral Pulses, Edema, - - Calcaneus limb position is consistent with his Achilles rupture status Skin: Ulcer/ Wound - No purulence, erythema, streaking, odor. There is still exposed tissue and granulation tissue formation at plantar heel with some peripheral maceration. No bogginess or fluctuance. The adjacent skin is hairless and atrophic Wound Measurements and Assessment WC - Nurse 1 - General Ulcer Measurement Start: 12/30/20 10:07 Freq: Status: Active Protocol: Activity Type Activity Date Activity User E-Sign Co-Sign Detail Recorded Client Recorded Date Recorded By Document 01/06/21 10:53 [email or web address] [id number] 01/06/21 11:01 DL 01/06/21 10:53 Wound Center Nurse 1 [Ulcer Assessment] #2- L MEDIAL HEEL -Combined with other wound No -Current Size (cm) - Length 0.4 -Current Size (cm) - Width 0.3 -Current Size (cm) - Depth 0.5 -Total Square Cm 0.12 -Tunneling No -Undermining/Tunneling Yes -Undermining/Tunneling Starts (O' 12 clock) -Undermining/Tunneling Ends (O'clock) 12 -Maximum Distance (cm) 0.6 -Circular Undermining Yes -Exudate Amt Medium -Exudate Type Purulent -Wound Margin Distinct, Outline Attached -Granulation Amt Medium (34-66%) -Granulation Quality [place] -Slough/Fibrin Yes -Necrosis Amt Small (1-33%) -Necrotic Tissue Type Adherent Slough -Structure Exposed N/A -Texture (Teodora-wound Skin Appearance) Assessed -Moisture (Teodora-wound Skin Appearance Assessed ) -Temperature (Teodora-wound Skin No Abnormality Appearance) (Pt Warm) -Tenderness on Palpation (Teodora-wound No Skin Appearance) -Ulcer Cleansing Wound Cleanser -Foul Odor after Cleansing Yes -Anesthetic Used 4% Lidocaine Solution #1- L HEEL -Combined with other wound No -Current Size (cm) - Length 2 -Current Size (cm) - Width 2.3 -Current Size (cm) - Depth 1 -Total Square Cm 4.6 -Tunneling No -Undermining/Tunneling No -Circular Undermining No -Exudate Amt Medium -Exudate Type Serosanguineous -Wound Margin Thickened & Rolled Under -Granulation Amt Medium (34-66%) -Slough/Fibrin Yes -Necrosis Amt Small (1-33%) -Necrotic Tissue Type Adherent Slough -Structure Exposed N/A -Color (Teodora-wound Skin Appearance) Assessed -Temperature (Teodora-wound Skin No Abnormality Appearance) (Pt Warm) -Ulcer Cleansing Wound Cleanser -Anesthetic Used 4% Lidocaine Solution BOUCHRA - Nurse 2 - General Ulcer CM Notes Start: 12/30/20 10:07 Freq: Status: Active Protocol: Activity Type Activity Date Activity User E-Sign Co-Sign Detail Recorded Client Recorded Date Recorded By Document 01/06/21 11:09 SUSANNE [id number] 01/06/21 11:14 JF 01/06/21 11:09 Wound Center Nurse 2 [Procedure/Treatment] #2- L MEDIAL HEEL -Time 11:11 -Correct Patient No -Correct Side, Site, Position No -Correct Procedure No -Procedure Performed No -Wound/Ulcer Outcome Not Healed -Ulcer Cleansing Rinsed/ Irrigated with Saline -Foul Odor after Cleansing No -Bioengineered Tissue No -Bleeding Controlled with Pressure -Offloading Yes -Type of Offloading Surgical Shoe -Treatment Response Procedure Tolerated Well -Debridement - Subq, 1st 20sq cm No #1- L HEEL -Time 11:11 -Correct Patient Yes -Correct Side, Site, Position Yes -Correct Procedure Yes -Procedure Performed Yes -Type of Procedure Debridement -Clinical Debridement Subcutaneous -Tissue Removed Subcutaneous -Post Debridement (cm) - Length 2.1 -Post Debridement (cm) - Width 2.4 -Post Debridement (cm) - Depth 1 -Total Square (Post) (cm) 5.04 -Area of Debridement (cm) - Length 2.1 -Area of Debridement (cm) - Width 2.4 -Total Square (Area) (cm) 5.04 -Tunneling No -Undermining/Tunneling No -Circular Undermining No -Wound/Ulcer Outcome Not Healed -Ulcer Cleansing Rinsed/ Irrigated with Saline -Foul Odor after Cleansing No -Bioengineered Tissue No -Bleeding Controlled with Pressure -Offloading Yes -Type of Offloading Surgical Shoe -Treatment Response Procedure Tolerated Well -Debridement - Subq, 1st 20sq cm Yes [See Physician Procedure note for Specifics] Pain Scale: 0-10 Numeric [Pain] -Is Patient Pain Free? Yes WC - Nurse 3 - General Ulcer D/C NN Start: 12/30/20 10:07 Freq: Status: Active Protocol: Activity Type Activity Date Activity User E-Sign Co-Sign Detail Recorded Client Recorded Date Recorded By Document 01/06/21 11:28 SUSANNE [id number] 01/06/21 11:28 JF 01/06/21 11:28 Wound Care Nurse 3 [Wound Dressing] #2- L MEDIAL HEEL -Ulcer Cleansing Rinsed/ Irrigated with Saline -Foul Odor after Cleansing No -Primary Dressing Covered/Secured Dry Gauze & with Roll Gauze, Secured with Tape #1- L HEEL -Ulcer Cleansing Rinsed/ Irrigated with Saline -Foul Odor after Cleansing No -Primary Dressing Covered/Secured Dry Gauze & with Roll Gauze, Secured with Tape Pain Scale: 0-10 Numeric [Pain] -Is Patient Pain Free? Yes - Visit Discharge [Visit Discharge Information] -Discharge Condition Stable -Ambulatory Status Wheelchair -Transportation Private Auto -Medication Reconcilliation completed Yes & provided to patient/care provider -Clinical Summary of Care Provided Yes Musculoskeletal: No Tenderness to Palpation of Joints or Extremities, Muscle Wasting Neurological: - - Lack of normal epicritic sensation light touch is consistent with neuropathic status Psych/Mental Status: Normal Affect, Appropriate Debridement Note Post-Debridement Measurements/Treatment - Nurse 2 - General Ulcer CM Notes Start: 12/30/20 10:07 Freq: Status: Active Protocol: Activity Type Activity Date Activity User E-Sign Co-Sign Detail Recorded Client Recorded Date Recorded By Document 12/30/20 11:12 [id number] 12/30/20 11:23 Document 01/06/21 11:09 [id number] 01/06/21 11:14 12/30/20 01/06/21 11:12 11:09 Wound Center Nurse 2 #2- L MEDIAL HEEL -Time 11:12 11:11 -Correct Patient Yes No -Correct Side, Site, Position Yes No -Correct Procedure Yes No -Procedure Performed Yes No -Type of Procedure Debridement -Clinical Debridement Subcutaneous -Tissue Removed Subcutaneous -Post Debridement (cm) - Length 0.3 -Post Debridement (cm) - Width 0.3 -Post Debridement (cm) - Depth 0.4 -Total Square (Post) (cm) 0.09 -Area of Debridement (cm) - Length 0.3 -Area of Debridement (cm) - Width 0.3 -Total Square (Area) (cm) 0.09 -Tunneling No -Undermining/Tunneling No -Circular Undermining No -Wound/Ulcer Outcome Not Healed Not Healed -Ulcer Cleansing Rinsed/ Rinsed/ Irrigated with Irrigated with Saline Saline -Foul Odor after Cleansing No No -Bioengineered Tissue No No -Bleeding Controlled with Pressure Pressure -Offloading No Yes -Type of Offloading Surgical Shoe -Treatment Response Procedure Procedure Tolerated Well Tolerated Well -Debridement - Subq, 1st 20sq cm Yes No #1- L HEEL -Time 11:21 11:11 -Correct Patient Yes Yes -Correct Side, Site, Position Yes Yes -Correct Procedure Yes Yes -Procedure Performed Yes Yes -Type of Procedure Debridement Debridement -Clinical Debridement Subcutaneous Subcutaneous -Tissue Removed Subcutaneous Subcutaneous -Post Debridement (cm) - Length 2.1 2.1 -Post Debridement (cm) - Width 2.6 2.4 -Post Debridement (cm) - Depth 0.5 1 -Total Square (Post) (cm) 5.46 5.04 -Area of Debridement (cm) - Length 2.1 2.1 -Area of Debridement (cm) - Width 2.6 2.4 -Total Square (Area) (cm) 5.46 5.04 -Tunneling No No -Undermining/Tunneling No No -Circular Undermining No No -Wound/Ulcer Outcome Not Healed Not Healed -Ulcer Cleansing Rinsed/ Rinsed/ Irrigated with Irrigated with Saline Saline -Foul Odor after Cleansing No No -Bioengineered Tissue Yes No -Type of Bioengineered Tissue Epifix Mesh -Expiration Date 08/30/25 -Product Lot Number [id number] -Percent Used 100 -Lot number of Saline Used [id number] -Bleeding Controlled with Pressure Pressure -Offloading No Yes -Type of Offloading Surgical Shoe -Treatment Response Procedure Procedure Tolerated Well Tolerated Well -Debridement - Subq, 1st 20sq cm No Yes -Apply Skin Sub - 1st 25 sq cm - Feet 1 -Epifix Mesh (per sq cm) 11 Pain Scale: 0-10 Numeric Is Patient Pain Free? Yes Yes - Nurse 3 - General Ulcer D/C NN Start: 12/30/20 10:07 Freq: Status: Active Protocol: Activity Type Activity Date Activity User E-Sign Co-Sign Detail Recorded Client Recorded Date Recorded By Document 12/30/20 11:29 [facility] [id number] 12/30/20 11:32 [facility] Document 01/06/21 11:28 SUSANNE [id number] 01/06/21 11:28 SUSANNE 12/30/20 01/06/21 11:29 11:28 Wound Care Nurse 3 #2- L MEDIAL HEEL -Ulcer Cleansing Rinsed/ Irrigated with Saline -Foul Odor after Cleansing No No -Other Dressing BOLSTERED GAUZE . COMING BACK LATER W/ VAC SUPPLIES FOR APPLICATION -Primary Dressing Covered/Secured with Dry Gauze & Dry Gauze & Roll Gauze, Roll Gauze, Secured with Secured with Tape Tape #1- L HEEL -Ulcer Cleansing Rinsed/ Irrigated with Saline -Foul Odor after Cleansing No -Primary Dressing Applied Other -Other Dressing BOLSTERED GAUZE DEISY WEISS RN -Primary Dressing Covered/Secured with Dry Gauze & Dry Gauze & Roll Gauze, Roll Gauze, Secured with Secured with Tape Tape -Other Covering COMING BACK LATER FOR VAC APPLICATION Treatment Response Procedure Tolerated Well Pain Scale: 0-10 Numeric Is Patient Pain Free? Yes Yes WC - Visit Discharge Discharge Condition Stable Stable Ambulatory Status Wheelchair Wheelchair Transportation Ambulance Private Auto Medication Reconcilliation completed & Yes provided to patient/care provider Clinical Summary of Care Provided Yes Facility Type Outcome Analyst Care Facility Wound debrided: plantar heel Laterality: Left Wound Grade/Stage: grade 3 Type of Debridement: Excisional debridement Anesthesia Used: 5% Lidocaine Gel Depth: in the subcutaneous layer Percentage of wound debrided: 100 Instrument Used: #15 blade Tissue Removed: fibrous, devitalized subcutaneous, biofilm, slough Severity: Fat Layer Exposed Amount of bleeding with debridement: Mild Bleeding Controlled with: Pressure Patient tolerated procedure well Assessment/Plan Active Problems (Last Updated 10/03/20 @ 09:[address] 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 Osteomyelitis treated medically with IV antibiotics. Uncontrolled diabetes with neuropathy, updated hemoglobin A1c of 8.9%. Ruptured left Achilles tendon with calcaneus gait. ambulation difficulty Plan: I reviewed and discussed his case. Excisional debridement was performed as noted in the clinical panel. Clinically his infection status has improved and he has continued wound peripheral epithelialization. It is noted he was previously approved for advanced wound healing products and this was applied last week with size reduction noted in the ulcer. Epifix will be considered again next week. I would like him to resume Dakin wet-to-dry dressings for next 3 days to address his peripheral maceration and to remove any potential bioburden formation. I recommend the wound VAC is applied and changed every couple of days after he completes the 3-day Dakin's course. This can be set at 150 mmHg continuously. Additional application of total contact cast will only be considered once he is transition off of the wound VAC in the future and if he is at a intermediate facility where he can follow-up appropriately. To proceed forward with obtaining a knee roller or modified scooter. To continue with wheelchair at this time. He was recently discharged from [facility] for sepsis and exposed necrotic bone look at the plantar calcaneus which was sent to microbiology. He was diagnosed with osteomyelitis with the following bone growth: Morganella morganii, Proteus, MRSA, coag negative strep, anaerobic cocci. He is on IV vancomycin and Zosyn with anticipated end date of 01-20-21. He also had a prior blood culture with lactobacillus which was considered likely a contamination. His most recent labs from between to include the following: white blood cell count 10.7, ESR 73, C-reactive protein 54.6, creatinine 1.02, GFR 79. To follow-up with infectious disease specialist, Dr. De Leon as scheduled next week. Due to his osteomyelitis status I discussed the treatment option of hyperbaric oxygen therapy. The indications, benefits, risk, complications, anticipated daily visits and anticipated healing were discussed in detail. He denies history of collapsed lung, cardiac disease, or claustrophobia. It is noted he does have an elevated A1c level however this has improved compared to earlier this year. He also has a history of pulmonary embolism that was already treated in the past. His diagnostic data including labs, EKG and echocardiogram and chest x-ray were reviewed from recent evaluation during his last hospitalization. He completed the hyperbaric oxygen therapy educational videos and feels like he would be comfortable proceeding if this gets approved by his insurance and his skilled facility. He was also seen and advised to proceed forward with HBO clearance from Maxine Salomon, clinical nurse practitioner this morning as well. His ears were also cleaned by ears nose and throat specialist, Dr. Lowery, which is appreciated. Transportation clarification will be needed prior to scheduling the HBO sessions. It has already been approved by his insurance. Our nursing supervisor finishing is working with his intermediate facility to help arrange this. Patient also reports his friend, Corie, is able to drive him daily if needed. He will likely require long-term use of an ankle-foot orthotic due to his calcaneus style gait that is resulting from his ruptured Achilles tendon. Repair of this Achilles or arthrodesis of the ankle but only be considered if he was able to demonstrate appropriate postoperative care and remarkable improvement in lifestyle and hemoglobin A1c status. Consideration may also be given to percutaneous attempted Achilles reapproximation with a PARS type system. I recommend continuing with any nutritional supplementation available clinical jail. His noninvasive vascular studies were reviewed with triphasic PT and DP pulses bilateral. His right NADIA is 1.12 and left 1.16. His toe brachial index is 1.12 on the right and 1.34 on the left. There is no significant segmental pressure drop and therefore no arterial occlusive lesion is suspected. I answered his questions. To return to clinic in 1 week. Note: Candid io speech recognition doctor of nurse anesthesia practice software was used to create portions of this document. Sound-alike and misspelled words, as well as other doctor of nurse anesthesia practice errors may be contained in the documentation. The medical decision making level is limited based on data including the review of prior external notes, review of a prior test, or ordering a test. The problems addressed require a low medical decision making level which includes two or more minor problems, a stable chronic illness, or an acute uncomplicated illness or injury.
[2021-01-11 07:55] LABS: Bedside Glucose 155 mg/dL (70-110)
[2021-01-11 08:55] VITALS: BP 139/75; BP 141/64; PULSE 81; PULSE 85; RESP 17; RESP 18; TEMP 36.1
--- NOTE | 2021-01-11 09:11 | PCM.HBO.PN ---
History of Present Illness Date of Service: 01/11/21 Presenting Chief Complaint: left heel ulcer with osteomyelitis LIZETH BURGOS is a 60 year old currently undergoing hyperbaric oxygen therapy for Villela's grade 3 diabetic foot ulcer to the left heel. Progress: Today's hyperbaric oxygen session represents the First of 30 planned sessions of hyperbaric oxygen therapy. Tolerance of hyperbaric oxygen therapy: Hyperbaric oxygen therapy was administered as per the facility's protocol. Hyperbaric oxygen therapy was administered at 2 roel for 90 minutes with no air breaks. The patient tolerated hyperbaric oxygen therapy well, without complaints or complications. Upon emergence from the hyperbaric chamber, the patient's vital signs remained stable. She was discharged in good condition, With the exception of a stage I barotrauma to the right tympanic membrane. See blood glucose levels documented elsewhere. He was advised to see his established chemical research worker for evaluation before continue with any additional hyperbaric oxygen treatments. Past Medical History Chronic Problems (Last Updated 10/03/20 @ 09:[address] 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 (Chronic) Osteomyelitis (Chronic) Allergies/Adverse Reactions: Allergies onion Allergy (Verified 12/07/20 19:18) Food Allergy SWELLING Home Medications: Ambulatory Orders Medication Instructions Recorded Acetaminophen [Tylenol Tablet] 650 mg PO Q6H PRN PRN tab 10/06/20 Insulin Glargine [Lantus SoloStar 35 units SC QHS 12/07/20 Pen] Glucerna Shake 120 ml PO 4X/DAY liquid 12/11/20 Insulin Lispro [Humalog KwikPen] See Protocol SC ACHS insuln.pen 12/11/20 Pantoprazole Sodium [Protonix] 40 mg PO BID tab 12/11/20 Piperacil/Tazobactam [Zosyn] 3.375 gm IV Q8 40 Days #120 vial 12/11/20 Paternal Family History: - - His father from an industrial accident. Maternal Family History: - - Denies knowledge of maternal medical history Smoking Status: Former smoker Physical Exam Vital Signs Temp Pulse Resp BP 96.9 F L 85 17 141/64 H 01/11/21 08:55 01/11/21 08:55 01/11/21 08:55 01/11/21 08:55 General: Alert, Oriented x3, Cooperative, No apparent distress HEENT: Atraumatic, TM's Clear Lungs: Clear to auscultation, Normal air movement Cardiovascular: Regular rate, Regular Rhythm Psych/Mental Status: Normal Affect, Appropriate, Alert and oriented to time, place, person, mood and affect Assessment/Plan Active Problems (Last Updated 10/03/20 @ 09:[address] 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 Treatment Course Number Number of HBO Treatments 30 Ordered Treatment Course Number 1 Treatment # 1 Chamber # 2 Chamber Type Monoplace Treatment Plan BANDAR (Atmospheric Absolute) 2 Number of Minutes 90 Number of Air Breaks 0
[2021-01-11 10:49] LABS: Bedside Glucose 178 mg/dL (70-110)
[2021-01-13 15:03] VITALS: BP 125/70; PULSE 98; RESP 16; TEMP 37.1; BMI 25.4
--- NOTE | 2021-01-13 16:00 | PCM.WC.PN ---
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 He was recently hospitalized for sepsis and osteomyelitis of the calcaneus. He is now residing at [facility] for managed wound care and IV antibiotics. He is also under the management of infectious disease physician, Dr. De Leon and is scheduled to stop IV vancomycin and Zosyn on 01-20-2021. He was seen for follow-up today. He denies lower extremity pain, fever, chill, nausea, vomiting. His case is complicated with uncontrolled diabetes, calcaneus gait limb position due to prior ruptured Achilles tendon, and noncompliance. He has been continuing with wound VAC treatment and also started hyperbaric oxygen therapy. He had tubes placed in his ears earlier today. Progress of Wound: Improving - Physical Exam Vital Signs Temp Pulse Resp BP 98.7 F 98 16 125/70 H 01/13/21 15:03 01/13/21 15:03 01/13/21 15:03 01/13/21 15:03 General: Alert, Oriented x3, Cooperative, No apparent distress HEENT: Atraumatic Extremities: No cyanosis, Capillary Refill Less than 3 Seconds, No Calf Tenderness, Diminished Peripheral Pulses, Edema - Mild Skin: Ulcer/ Wound - No purulence, erythema, streaking, odor, infection. No adjacent bogginess or fluctuance. Reduced peripheral margins are noted with epithelialization and improvement in granulation tissue. No direct visualization of the bone. His adjacent skin is hairless and atrophic Wound Measurements and Assessment WC - Nurse 1 - General Ulcer Measurement Start: 12/30/20 10:07 Freq: Status: Active Protocol: Activity Type Activity Date Activity User E-Sign Co-Sign Detail Recorded Client Recorded Date Recorded By Document 01/13/21 15:03 [facility] [id number] 01/13/21 15:17 [facility] 01/13/21 15:03 Wound Center Nurse 1 [Ulcer Assessment] #2- L MEDIAL HEEL -Combined with other wound No -Current Size (cm) - Length 0.1 -Current Size (cm) - Width 0.1 -Current Size (cm) - Depth 0.1 -Total Square Cm 0.01 -Epithelialization Large 67-100% #1- L HEEL -Combined with other wound No -Current Size (cm) - Length 1.7 -Current Size (cm) - Width 2 -Current Size (cm) - Depth 0.4 -Total Square Cm 3.4 -Photo Taken No -Epithelialization Small 1-33% -Tunneling No -Undermining/Tunneling Yes -Undermining/Tunneling Starts (O' 4 clock) -Undermining/Tunneling Ends (O'clock) 6 -Maximum Distance (cm) 1.5 -Circular Undermining No -Exudate Amt Medium -Exudate Type Serosanguineous -Wound Margin Distinct, Outline Attached -Granulation Amt Medium (34-66%) -Granulation Quality Pale,Red -Slough/Fibrin Yes -Necrosis Amt Medium (34-66%) -Necrotic Tissue Type Adherent Slough -Texture (Teodora-wound Skin Appearance) Assessed, Scarring -Moisture (Teodora-wound Skin Appearance Assessed, ) Maceration -Color (Teodora-wound Skin Appearance) Assessed,Palor -Temperature (Teodora-wound Skin No Abnormality Appearance) (Pt Warm) -Tenderness on Palpation (Teodora-wound Yes Skin Appearance) -Ulcer Cleansing soapy water -Foul Odor after Cleansing No -Anesthetic Used 4% Lidocaine Solution Musculoskeletal: No Tenderness to Palpation of Joints or Extremities, Muscle Wasting, - - Calcaneus gait position Neurological: - - Lack of normal epicritic sensation light touch is consistent with neuropathic status Psych/Mental Status: Normal Affect, Appropriate Debridement Note Post-Debridement Measurements/Treatment WC - Nurse 2 - General Ulcer CM Notes Start: 12/30/20 10:07 Freq: Status: Active Protocol: Activity Type Activity Date Activity User E-Sign Co-Sign Detail Recorded Client Recorded Date Recorded By Document 12/30/20 11:12 SUSANNE [id number] 12/30/20 11:23 JF Document 01/06/21 11:09 SUSANNE [id number] 01/06/21 11:14 JF 12/30/20 01/06/21 11:12 11:09 Wound Center Nurse 2 #2- L MEDIAL HEEL -Time 11:12 11:11 -Correct Patient Yes No -Correct Side, Site, Position Yes No -Correct Procedure Yes No -Procedure Performed Yes No -Type of Procedure Debridement -Clinical Debridement Subcutaneous -Tissue Removed Subcutaneous -Post Debridement (cm) - Length 0.3 -Post Debridement (cm) - Width 0.3 -Post Debridement (cm) - Depth 0.4 -Total Square (Post) (cm) 0.09 -Area of Debridement (cm) - Length 0.3 -Area of Debridement (cm) - Width 0.3 -Total Square (Area) (cm) 0.09 -Tunneling No -Undermining/Tunneling No -Circular Undermining No -Wound/Ulcer Outcome Not Healed Not Healed -Ulcer Cleansing Rinsed/ Rinsed/ Irrigated with Irrigated with Saline Saline -Foul Odor after Cleansing No No -Bioengineered Tissue No No -Bleeding Controlled with Pressure Pressure -Offloading No Yes -Type of Offloading Surgical Shoe -Treatment Response Procedure Procedure Tolerated Well Tolerated Well -Debridement - Subq, 1st 20sq cm Yes No #1- L HEEL -Time 11:21 11:11 -Correct Patient Yes Yes -Correct Side, Site, Position Yes Yes -Correct Procedure Yes Yes -Procedure Performed Yes Yes -Type of Procedure Debridement Debridement -Clinical Debridement Subcutaneous Subcutaneous -Tissue Removed Subcutaneous Subcutaneous -Post Debridement (cm) - Length 2.1 2.1 -Post Debridement (cm) - Width 2.6 2.4 -Post Debridement (cm) - Depth 0.5 1 -Total Square (Post) (cm) 5.46 5.04 -Area of Debridement (cm) - Length 2.1 2.1 -Area of Debridement (cm) - Width 2.6 2.4 -Total Square (Area) (cm) 5.46 5.04 -Tunneling No No -Undermining/Tunneling No No -Circular Undermining No No -Wound/Ulcer Outcome Not Healed Not Healed -Ulcer Cleansing Rinsed/ Rinsed/ Irrigated with Irrigated with Saline Saline -Foul Odor after Cleansing No No -Bioengineered Tissue Yes No -Type of Bioengineered Tissue Epifix Mesh -Expiration Date 08/30/25 -Product Lot Number [id number] -Percent Used 100 -Lot number of Saline Used [id number] -Bleeding Controlled with Pressure Pressure -Offloading No Yes -Type of Offloading Surgical Shoe -Treatment Response Procedure Procedure Tolerated Well Tolerated Well -Debridement - Subq, 1st 20sq cm No Yes -Apply Skin Sub - 1st 25 sq cm - Feet 1 -Epifix Mesh (per sq cm) 11 Pain Scale: 0-10 Numeric Is Patient Pain Free? Yes Yes - Nurse 3 - General Ulcer D/C NN Start: 12/30/20 10:07 Freq: Status: Active Protocol: Activity Type Activity Date Activity User E-Sign Co-Sign Detail Recorded Client Recorded Date Recorded By Document 12/30/20 11:29 [facility] [id number] 12/30/20 11:32 [facility] Document 01/06/21 11:28 [id number] 01/06/21 11:28 12/30/20 01/06/21 11:29 11:28 Wound Care Nurse 3 #2- L MEDIAL HEEL -Ulcer Cleansing Rinsed/ Irrigated with Saline -Foul Odor after Cleansing No No -Other Dressing BOLSTERED GAUZE . COMING BACK LATER W/ VAC SUPPLIES FOR APPLICATION -Primary Dressing Covered/Secured with Dry Gauze & Dry Gauze & Roll Gauze, Roll Gauze, Secured with Secured with Tape Tape #1- L HEEL -Ulcer Cleansing Rinsed/ Irrigated with Saline -Foul Odor after Cleansing No -Primary Dressing Applied Other -Other Dressing BOLSTERED GAUZE PER Sridhar WEISS RN -Primary Dressing Covered/Secured with Dry Gauze & Dry Gauze & Roll Gauze, Roll Gauze, Secured with Secured with Tape Tape -Other Covering COMING BACK LATER FOR VAC APPLICATION Treatment Response Procedure Tolerated Well Pain Scale: 0-10 Numeric Is Patient Pain Free? Yes Yes WC - Visit Discharge Discharge Condition Stable Stable Ambulatory Status Wheelchair Wheelchair Transportation Ambulance Private Auto Medication Reconcilliation completed & Yes provided to patient/care provider Clinical Summary of Care Provided Yes Facility Type Content Specialist Care Facility Wound debrided: plantar heel Laterality: Left Wound Grade/Stage: grade 3 Type of Debridement: Excisional debridement Anesthesia Used: 5% Lidocaine Gel Depth: in the subcutaneous layer Percentage of wound debrided: 100 Instrument Used: #15 blade Tissue Removed: fibrous, devitalized subcutaneous, biofilm, slough Severity: Fat Layer Exposed Amount of bleeding with debridement: Mild Bleeding Controlled with: Pressure Patient tolerated procedure well Assessment/Plan Active Problems (Last Updated 10/03/20 @ 09:[address] 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 Osteomyelitis treated medically with IV antibiotics. Uncontrolled diabetes with neuropathy, updated hemoglobin A1c of 8.9%. Ruptured left Achilles tendon with calcaneus gait. ambulation difficulty Plan: I reviewed and discussed his case. Excisional debridement was performed as noted in the clinical panel. Clinically his infection status has improved and he has continued wound peripheral epithelialization. Advanced wound healing product, epifix applied today according standard protocol to optimize healing now that his maceration has resolved. A wound VAC was also applied on 125 mmHg setting. This will be kept intact for 1 week. Additional application of total contact cast will only be considered once he is transition off of the wound VAC in the future and if he is at a detention facility where he can follow-up appropriately. To proceed forward with obtaining a knee roller or modified scooter. To continue with wheelchair at this time. He was previously diagnosed with osteomyelitis with the following bone growth: Morganella morganii, Proteus, MRSA, coag negative strep, anaerobic cocci. He is on IV vancomycin and Zosyn with anticipated end date of 01-20-21. He also had a prior blood culture with lactobacillus which was considered likely a contamination. His most recent labs from between to include the following: white blood cell count 10.7, ESR 73, C-reactive protein 54.6, creatinine 1.02, GFR 79. He was seen by infectious disease today as well. Due to his osteomyelitis status I discussed the treatment option of hyperbaric oxygen therapy. The indications, benefits, risk, complications, anticipated daily visits and anticipated healing were discussed in detail. He denies history of collapsed lung, cardiac disease, or claustrophobia. His diagnostic data including labs, EKG and echocardiogram and chest x-ray were reviewed from recent evaluation during his last hospitalization. He has started sessions and sustained some initial barotrauma. He had tubes placed in his ears earlier today and will likely resume sessions tomorrow with hyperbaric oxygen therapy. He will likely require long-term use of an ankle-foot orthotic due to his calcaneus style gait that is resulting from his ruptured Achilles tendon. Repair of this Achilles or arthrodesis of the ankle but only be considered if he was able to demonstrate appropriate postoperative care and remarkable improvement in lifestyle and hemoglobin A1c status. Consideration may also be given to percutaneous attempted Achilles reapproximation with a PARS type system. I recommend continuing with any nutritional supplementation available clinical custodial. His noninvasive vascular studies were reviewed with triphasic PT and DP pulses bilateral. His right NADIA is 1.12 and left 1.16. His toe brachial index is 1.12 on the right and 1.34 on the left. There is no significant segmental pressure drop and therefore no arterial occlusive lesion is suspected. I answered his questions. To return to clinic in 1 week. Note: [employer] speech recognition biology adjunct instructor software was used to create portions of this document. Sound-alike and misspelled words, as well as other biology adjunct instructor errors may be contained in the documentation.
--- NOTE | 2021-01-13 16:01 | PN.ID_ITS ---
Patient Problems: Active and Suspected Problems (Last Updated 10/03/20 @ 09:[address] Deann Calloway, DPShaila) Severe hyperglycemia due to diabetes mellitus (Acute) Maceration of periwound skin (Acute) Subjective: Feeling ok, no fever, no n/v/d, foot improving, picc with no issues. - Physical Exam Vitals/I&O's: Vital Signs Temp Pulse Resp BP 98.7 F 98 16 125/70 H 01/13/21 15:03 01/13/21 15:03 01/13/21 15:03 01/13/21 15:03 Oxygen Delivery Method Room Air Weight: 80.286 kg Body Mass Index (BMI) 25.4 Finger Stick Blood Glucose 415 General: Alert, Cooperative, No apparent distress Lungs: Clear to auscultation, Normal air movement Cardiovascular: Regular rate, Regular Rhythm Abdomen: Soft, Non Tender, Non-Distended Skin: Ulcer/ Wound - clean, dry Medical Necessity - Tobacco Use Smoking Status: Former smoker Route of nutrition/ use of supplements: [] Nutritional Intake: [] IV Site: [] Wilkinson Catheter: [] - Assessment/Plan Antibiotics: [] Assessment/Plan: [] Active and Suspected Problems (Last Updated 10/03/20 @ 09:[address] Deann Calloway, DPM) Severe hyperglycemia due to diabetes mellitus (Acute) Maceration of periwound skin (Acute) L heel osteo - surg cx with MRSA, morganella, proteus, CoNS x2, and anaerobes. Discharged from [facility] on 6 weeks iv vanc and zosyn, stop date 01/20/21 with weekly bmp, cbc, vanc trough, and esr. Reviewed labs, foot improving. Plan on picc removal and stopping abx next week. Return to clinic as needed.
[2021-01-14 07:55] LABS: Bedside Glucose 145 mg/dL (70-110)
[2021-01-14 08:40] VITALS: BP 126/62; BP 126/66; PULSE 76; PULSE 93; RESP 16; TEMP 36.3; TEMP 36.8
[2021-01-14 10:20] LABS: Bedside Glucose 175 mg/dL (70-110)
--- NOTE | 2021-01-14 15:01 | HBO.PN.PCM_ITS ---
History of Present Illness Date of Service: 01/14/21 Presenting Chief Complaint: left heel ulcer with osteomyelitis LIZETH BURGOS is a 60 year old currently undergoing hyperbaric oxygen therapy for Villela's grade 3 diabetic foot ulcer to the left heel. Progress: Today's hyperbaric oxygen session represents the 2nd of 30 planned sessions of hyperbaric oxygen therapy. Tolerance of hyperbaric oxygen therapy: Hyperbaric oxygen therapy was administered as per the facility's protocol. Hyperbaric oxygen therapy was administered at 2 roel for 90 minutes with no air breaks. The patient tolerated hyperbaric oxygen therapy well, without complaints or complications. Upon emergence from the hyperbaric chamber, the patient's vital signs remained stable. He was discharged in good condition, See blood glucose levels documented elsewhere. He is status post eustachian tube placed bilaterally on January 13, 2021. Past Medical History Chronic Problems (Last Updated 10/03/20 @ 09:[address] 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 (Chronic) Osteomyelitis (Chronic) Allergies/Adverse Reactions: Allergies onion Allergy (Verified 12/07/20 19:18) Food Allergy SWELLING Home Medications: Ambulatory Orders Medication Instructions Recorded Acetaminophen [Tylenol Tablet] 650 mg PO Q6H PRN PRN tab 10/06/20 Insulin Glargine [Lantus SoloStar 35 units SC QHS 12/07/20 Pen] Glucerna Shake 120 ml PO 4X/DAY liquid 12/11/20 Insulin Lispro [Humalog KwikPen] See Protocol SC ACHS insuln.pen 12/11/20 Pantoprazole Sodium [Protonix] 40 mg PO BID tab 12/11/20 Piperacil/Tazobactam [Zosyn] 3.375 gm IV Q8 40 Days #120 vial 12/11/20 Paternal Family History: - - His father from an industrial accident. Maternal Family History: - - Denies knowledge of maternal medical history Smoking Status: Former smoker Physical Exam Vital Signs Temp Pulse Resp BP 97.3 F L 76 16 126/66 H 01/14/21 08:40 01/14/21 08:40 01/14/21 08:40 01/14/21 08:40 General: Alert, Oriented x3, Cooperative, No apparent distress HEENT: Atraumatic, TM's Clear Lungs: Clear to auscultation, Normal air movement Cardiovascular: Regular rate, Regular Rhythm Psych/Mental Status: Normal Affect, Alert and oriented to time, place, person, mood and affect Assessment/Plan Active Problems (Last Updated 10/03/20 @ 09:[address] 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 Treatment Course Number Number of HBO Treatments 30 Ordered Treatment Course Number 1 Treatment # 2 Chamber # 2 Chamber Type Monoplace Treatment Plan BANDAR (Atmospheric Absolute) 2 Number of Minutes 90 Number of Air Breaks 0
[2021-01-15 07:50] LABS: Bedside Glucose 160 mg/dL (70-110)
[2021-01-15 10:06] LABS: Bedside Glucose 151 mg/dL (70-110)
[2021-01-15 10:33] VITALS: BP 136/73; BP 152/82; PULSE 75; PULSE 83; RESP 16; RESP 18; TEMP 36.3; TEMP 36.7
--- NOTE | 2021-01-15 13:17 | HBO.PN.PCM_ITS ---
History of Present Illness Date of Service: 01/15/21 Presenting Chief Complaint: left heel ulcer with osteomyelitis LIZETH BURGOS is a 60 year old currently undergoing hyperbaric oxygen therapy for Villela's grade 3 diabetic foot ulcer to the left heel. Progress: Today's hyperbaric oxygen session represents the 3rd of 30 planned sessions of hyperbaric oxygen therapy. Tolerance of hyperbaric oxygen therapy: Hyperbaric oxygen therapy was administered as per the facility's protocol. Hyperbaric oxygen therapy was administered at 2 roel for 90 minutes with no air breaks. The patient tolerated hyperbaric oxygen therapy well, without complaints or complications. Upon emergence from the hyperbaric chamber, the patient's vital signs remained stable. He was discharged in good condition, See blood glucose levels documented elsewhere. He is status post eustachian tube placed bilaterally on January 13, 2021. Past Medical History Chronic Problems (Last Updated 10/03/20 @ 09:[address] 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 (Chronic) Osteomyelitis (Chronic) Allergies/Adverse Reactions: Allergies onion Allergy (Verified 12/07/20 19:18) Food Allergy SWELLING Home Medications: Ambulatory Orders Medication Instructions Recorded Acetaminophen [Tylenol Tablet] 650 mg PO Q6H PRN PRN tab 10/06/20 Insulin Glargine [Lantus SoloStar 35 units SC QHS 12/07/20 Pen] Glucerna Shake 120 ml PO 4X/DAY liquid 12/11/20 Insulin Lispro [Humalog KwikPen] See Protocol SC ACHS insuln.pen 12/11/20 Pantoprazole Sodium [Protonix] 40 mg PO BID tab 12/11/20 Piperacil/Tazobactam [Zosyn] 3.375 gm IV Q8 40 Days #120 vial 12/11/20 Paternal Family History: - - His father from an industrial accident. Maternal Family History: - - Denies knowledge of maternal medical history Lives: Detention Smoking Status: Former smoker Tobacco Use: Non-smoker Alcohol: None Drugs: None Physical Exam Vital Signs Temp Pulse Resp BP 97.3 F L 75 18 152/82 H 01/15/21 10:33 01/15/21 10:33 01/15/21 10:33 01/15/21 10:33 General: Alert, Oriented x3, Cooperative, No apparent distress Psych/Mental Status: Normal Affect, Appropriate Assessment/Plan Active Problems (Last Updated 10/03/20 @ 09:[address] 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 Treatment Course Number Number of HBO Treatments 30 Ordered Treatment Course Number 1 Treatment # 3 Chamber # 2 Chamber Type Monoplace Treatment Plan BANDAR (Atmospheric Absolute) 2 Number of Minutes 90 Number of Air Breaks 0
[2021-01-18 08:01] LABS: Bedside Glucose 167 mg/dL (70-110)
[2021-01-18 08:43] VITALS: BP 148/69; BP 150/69; PULSE 78; PULSE 89; RESP 16; TEMP 36.6; TEMP 36.7
--- NOTE | 2021-01-18 08:50 | PCM.HBO.PN ---
History of Present Illness Date of Service: 01/18/21 Presenting Chief Complaint: left heel ulcer with osteomyelitis LIZETH BURGOS is a 60 year old currently undergoing hyperbaric oxygen therapy for Villela's grade 3 diabetic foot ulcer to the left heel. Progress: Today's hyperbaric oxygen session represents the 4th of 30 planned sessions of hyperbaric oxygen therapy. Tolerance of hyperbaric oxygen therapy: Hyperbaric oxygen therapy was administered as per the facility's protocol. Hyperbaric oxygen therapy was administered at 2 roel for 90 minutes with no air breaks. The patient tolerated hyperbaric oxygen therapy well, without complaints or complications. Upon emergence from the hyperbaric chamber, the patient's vital signs remained stable. He was discharged in good condition, See blood glucose levels documented elsewhere. He is status post eustachian tube placed bilaterally on January 13, 2021. Past Medical History Chronic Problems (Last Updated 10/03/20 @ 09:[address] 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, left (Chronic) Diabetes (Chronic) COPD (chronic obstructive pulmonary disease) (Chronic) Rheumatoid arthritis (Chronic) 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 (Chronic) Osteomyelitis (Chronic) Allergies/Adverse Reactions: Allergies onion Allergy (Verified 12/07/20 19:18) Food Allergy SWELLING Home Medications: Ambulatory Orders Medication Instructions Recorded Acetaminophen [Tylenol Tablet] 650 mg PO Q6H PRN PRN tab 10/06/20 Insulin Glargine [Lantus SoloStar 35 units SC QHS 12/07/20 Pen] Glucerna Shake 120 ml PO 4X/DAY liquid 12/11/20 Insulin Lispro [Humalog KwikPen] See Protocol SC ACHS insuln.pen 12/11/20 Pantoprazole Sodium [Protonix] 40 mg PO BID tab 12/11/20 Piperacil/Tazobactam [Zosyn] 3.375 gm IV Q8 40 Days #120 vial 12/11/20 Paternal Family History: - - His father from an industrial accident. Maternal Family History: - - Denies knowledge of maternal medical history Lives: Alf Smoking Status: Former smoker Tobacco Use: Non-smoker Alcohol: None Drugs: None Physical Exam Vital Signs Temp Pulse Resp BP 98.0 F 89 16 150/69 H 01/18/21 08:43 01/18/21 08:43 01/18/21 08:43 01/18/21 08:43 General: Alert, Oriented x3, Cooperative, No apparent distress HEENT: Atraumatic, TM's Clear Lungs: Clear to auscultation, Normal air movement Cardiovascular: Regular rate, Regular Rhythm Psych/Mental Status: Normal Affect, Appropriate, Alert and oriented to time, place, person, mood and affect Assessment/Plan Active Problems (Last Updated 10/03/20 @ 09:[address] Deann Calloway, [facility]) Type 2 diabetes mellitus with diabetic polyneuropathy (Chronic) Calcaneal gait (Chronic) Severe hyperglycemia due to diabetes mellitus (Acute) Ulcer of left heel (Chronic) COPD (chronic obstructive pulmonary disease) (Chronic) Rheumatoid arthritis (Chronic) 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 (Chronic) Osteomyelitis (Chronic) The patient appears to be tolerating hyperbaric oxygen therapy well, which will be continued as per the patient's medical plan. Treatment Course Number Number of HBO Treatments 30 Ordered Treatment Course Number 1 Treatment # 4 Chamber # 2 Chamber Type Monoplace Treatment Plan BANDAR (Atmospheric Absolute) 2 Number of Minutes 90 Number of Air Breaks 0
[2021-01-18 10:36] LABS: Bedside Glucose 229 mg/dL (70-110)
[2021-01-19 08:00] LABS: Bedside Glucose 165 mg/dL (70-110)
[2021-01-19 08:46] VITALS: BP 125/68; BP 151/78; PULSE 76; PULSE 98; RESP 18; TEMP 36.6; TEMP 36.7
[2021-01-19 10:15] LABS: Bedside Glucose 190 mg/dL (70-110)
--- NOTE | 2021-01-19 14:09 | PCM.HBO.PN ---
History of Present Illness Date of Service: 01/19/21 Presenting Chief Complaint: left heel ulcer with osteomyelitis LIZETH BURGOS is a 60 year old currently undergoing hyperbaric oxygen therapy for Villela's grade 3 diabetic foot ulcer to the left heel with osteomyelitis. Progress: Today's hyperbaric oxygen session represents the 5th of 30 planned sessions of hyperbaric oxygen therapy. Tolerance of hyperbaric oxygen therapy: Hyperbaric oxygen therapy was administered as per the facility's protocol. Hyperbaric oxygen therapy was administered at 2 roel for 90 minutes with no air breaks. The patient tolerated hyperbaric oxygen therapy well, without complaints or complications. Upon emergence from the hyperbaric chamber, the patient's vital signs remained stable. He was discharged in good condition, See blood glucose levels documented elsewhere. He is status post eustachian tube placed bilaterally on January 13, 2021, without problems. Past Medical History Chronic Problems (Last Updated 10/03/20 @ 09:[address] 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 (Chronic) Osteomyelitis (Chronic) Allergies/Adverse Reactions: Allergies onion Allergy (Verified 12/07/20 19:18) Food Allergy SWELLING Home Medications: Ambulatory Orders Medication Instructions Recorded Acetaminophen [Tylenol Tablet] 650 mg PO Q6H PRN PRN tab 10/06/20 Insulin Glargine [Lantus SoloStar 35 units SC QHS 12/07/20 Pen] Glucerna Shake 120 ml PO 4X/DAY liquid 12/11/20 Insulin Lispro [Humalog KwikPen] See Protocol SC ACHS insuln.pen 12/11/20 Pantoprazole Sodium [Protonix] 40 mg PO BID tab 12/11/20 Piperacil/Tazobactam [Zosyn] 3.375 gm IV Q8 40 Days #120 vial 12/11/20 Paternal Family History: - - His father from an industrial accident. Maternal Family History: - - Denies knowledge of maternal medical history Lives: Senior Living Smoking Status: Former smoker Tobacco Use: Non-smoker Alcohol: None Drugs: None Physical Exam Vital Signs Temp Pulse Resp BP 97.9 F 76 18 125/68 H 01/19/21 08:46 01/19/21 08:46 01/19/21 08:46 01/19/21 08:46 General: Alert, Oriented x3, Cooperative, No apparent distress, Well developed, Well nourished HEENT: Atraumatic, PERRLA, EOMI, Normocephalic Lungs: Normal air movement Psych/Mental Status: Normal Affect, Appropriate, Alert and oriented to time, place, person, mood and affect Assessment/Plan Active Problems (Last Updated 10/03/20 @ 09:[address] Deann Calloway, [facility]) Type 2 diabetes mellitus with diabetic polyneuropathy (Chronic) Calcaneal gait (Chronic) Severe hyperglycemia due to diabetes mellitus (Acute) Ulcer of left heel (Chronic) COPD (chronic obstructive pulmonary disease) (Chronic) Rheumatoid arthritis (Chronic) 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 (Chronic) Osteomyelitis (Chronic) The patient appears to be tolerating hyperbaric oxygen therapy well, which will be continued as per the patient's medical plan. Treatment Course Number Number of HBO Treatments 30 Ordered Treatment Course Number 1 Treatment # 5 Chamber # 2 Chamber Type Monoplace Treatment Plan BANDAR (Atmospheric Absolute) 2 Number of Minutes 90 Number of Air Breaks 0
[2021-01-20 07:56] VITALS: BP 146/70; PULSE 84; RESP 16; TEMP 36.9; BMI 25.4
[2021-01-20 08:33] VITALS: BP 146/70; BP 150/80; PULSE 83; PULSE 84; RESP 16; RESP 17; TEMP 36.7; TEMP 36.9
[2021-01-20 08:35] LABS: Bedside Glucose 154 mg/dL (70-110)
--- NOTE | 2021-01-20 09:05 | PN.PCM_ITS ---
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 He was recently hospitalized for sepsis and osteomyelitis of the calcaneus. He is now residing at [facility] for managed wound care and IV antibiotics. He is also under the management of infectious disease physician, Dr. De Leon and is scheduled to stop IV vancomycin and Zosyn on 01-20-2021. He was seen for follow-up today. He denies lower extremity pain, fever, chill, nausea, vomiting. His case is complicated with uncontrolled diabetes, calcaneus gait limb position due to prior ruptured Achilles tendon, and noncompliance. He has been continuing with wound VAC treatment and also started hyperbaric oxygen therapy. He is scheduled to go home to his apartment later this week. He relates he will not be able to attend hyperbaric oxygen therapy this upcoming Monday because he is attending a . He is amendable to continue the wound VAC when he returns home if we can get this set up with his insurance. Progress of Wound: Improving. status change - healed medial - Physical Exam Vital Signs Temp Pulse Resp BP 98.5 F 84 16 146/70 H 01/20/21 08:33 01/20/21 08:33 01/20/21 08:33 01/20/21 08:33 General: Alert, Oriented x3, Cooperative, No apparent distress Extremities: No cyanosis, Capillary Refill Less than 3 Seconds, No Calf Tenderness, Diminished Peripheral Pulses, Edema - Decreased Skin: Ulcer/ Wound - Healed medial wound without active drainage; this skin is friable and thin. No purulence, erythema, streaking, odor, active infection clinically. The plantar ulcer site is reduced in size with reduced depth and healthy granular base. No bogginess or fluctuance or necrosis on palpation Wound Measurements and Assessment WC - Nurse 1 - General Ulcer Measurement Start: 12/30/20 10:07 Freq: Status: Active Protocol: Activity Type Activity Date Activity User E-Sign Co-Sign Detail Recorded Client Recorded Date Recorded By Document 01/20/21 07:56 [facility] [id number] 01/20/21 08:05 [facility] 01/20/21 07:56 Wound Center Nurse 1 [Ulcer Assessment] #2- L MEDIAL HEEL -Combined with other wound No -Current Size (cm) - Length 0.1 -Current Size (cm) - Width 0.1 -Current Size (cm) - Depth 0.1 -Total Square Cm 0.01 -Tunneling No -Undermining/Tunneling No -Circular Undermining No -Exudate Amt Small -Exudate Type Serosanguineous -Wound Margin Flat & Intact -Granulation Amt Medium (34-66%) -Granulation Quality Turney -Necrosis Amt Small (1-33%) -Necrotic Tissue Type Adherent Slough -Structure Exposed N/A -Texture (Teodora-wound Skin Appearance) Assessed, Scarring -Moisture (Teodora-wound Skin Appearance Assessed, ) Maceration -Color (Teodora-wound Skin Appearance) Assessed -Temperature (Teodora-wound Skin No Abnormality Appearance) (Pt Warm) -Tenderness on Palpation (Teodora-wound No Skin Appearance) -Ulcer Cleansing Wound Cleanser -Foul Odor after Cleansing No -Anesthetic Used 5% Lidocaine Gel #1- L HEEL -Combined with other wound No -Current Size (cm) - Length 1.8 -Current Size (cm) - Width 1.6 -Current Size (cm) - Depth 0.1 -Total Square Cm 2.88 -Tunneling No -Undermining/Tunneling No -Circular Undermining No -Exudate Amt Medium -Exudate Type Serosanguineous -Wound Margin Thickened & Rolled Under -Granulation Amt Medium (34-66%) -Granulation Quality Turney -Slough/Fibrin Yes -Necrosis Amt Medium (34-66%) -Necrotic Tissue Type Adherent Slough -Structure Exposed N/A -Texture (Teodora-wound Skin Appearance) Assessed, Scarring -Moisture (Teodora-wound Skin Appearance Assessed ) -Color (Teodora-wound Skin Appearance) Assessed -Temperature (Teodora-wound Skin No Abnormality Appearance) (Pt Warm) -Tenderness on Palpation (Teodora-wound No Skin Appearance) -Ulcer Cleansing Wound Cleanser -Foul Odor after Cleansing No -Anesthetic Used 5% Lidocaine Gel WC - Nurse 2 - General Ulcer CM Notes Start: 12/30/20 10:07 Freq: Status: Active Protocol: Activity Type Activity Date Activity User E-Sign Co-Sign Detail Recorded Client Recorded Date Recorded By Document 01/20/21 08:11 SUSANNE [id number] 01/20/21 08:21 SUSANNE 01/20/21 08:11 Wound Center Nurse 2 [Procedure/Treatment] #2- L MEDIAL HEEL -Correct Patient No -Correct Side, Site, Position No -Correct Procedure No -Procedure Performed No -Wound/Ulcer Outcome Not Healed #1- L HEEL -Time 08:11 -Correct Patient Yes -Correct Side, Site, Position Yes -Correct Procedure Yes -Procedure Performed Yes -Type of Procedure Debridement -Clinical Debridement Subcutaneous -Tissue Removed Subcutaneous -Post Debridement (cm) - Length 1.9 -Post Debridement (cm) - Width 1.7 -Post Debridement (cm) - Depth 0.3 -Total Square (Post) (cm) 3.23 -Area of Debridement (cm) - Length 1.9 -Area of Debridement (cm) - Width 1.7 -Total Square (Area) (cm) 3.23 -Tunneling No -Undermining/Tunneling No -Circular Undermining No -Wound/Ulcer Outcome Not Healed -Ulcer Cleansing Rinsed/ Irrigated with Saline -Foul Odor after Cleansing No -Bioengineered Tissue Yes -Type of Bioengineered Tissue Epifix -Expiration Date 09/29/25 -Product Lot Number [id number] -Percent Used 100 -Lot number of Saline Used [id number] -Bleeding Controlled with Pressure -Offloading No -Treatment Response Procedure Tolerated Well -Debridement - Subq, 1st 20sq cm No -Apply Skin Sub - 1st 25 sq cm - Feet 1 -Epifix (per sq cm) 4 [See Physician Procedure note for Specifics] Pain Scale: 0-10 Numeric [Pain] -Is Patient Pain Free? Yes Musculoskeletal: Muscle Wasting, - - Calcaneus gait position Neurological: - - Lack of normal epicritic sensation light touch is consistent with neuropathic status Psych/Mental Status: Normal Affect, Appropriate Debridement Note Post-Debridement Measurements/Treatment WC - Nurse 2 - General Ulcer CM Notes Start: 12/30/20 10:07 Freq: Status: Active Protocol: Activity Type Activity Date Activity User E-Sign Co-Sign Detail Recorded Client Recorded Date Recorded By Document 12/30/20 11:12 [id number] 12/30/20 11:23 Document 01/06/21 11:09 [id number] 01/06/21 11:14 Document 01/13/21 16:02 [id number] 01/13/21 16:03 Document 01/20/21 08:11 [id number] 01/20/21 08:21 JF 12/30/20 01/06/21 01/13/21 11:12 11:09 16:02 Wound Center Nurse 2 #2- L MEDIAL HEEL -Time 11:12 11:11 -Correct Patient Yes No No -Correct Side, Site, Position Yes No No -Correct Procedure Yes No No -Procedure Performed Yes No No -Type of Procedure Debridement -Clinical Debridement Subcutaneous -Tissue Removed Subcutaneous -Post Debridement (cm) - Length 0.3 -Post Debridement (cm) - Width 0.3 -Post Debridement (cm) - Depth 0.4 -Total Square (Post) (cm) 0.09 -Area of Debridement (cm) - Length 0.3 -Area of Debridement (cm) - Width 0.3 -Total Square (Area) (cm) 0.09 -Tunneling No -Undermining/Tunneling No -Circular Undermining No -Wound/Ulcer Outcome Not Healed Not Healed Not Healed -Ulcer Cleansing Rinsed/ Rinsed/ Irrigated with Irrigated with Saline Saline -Foul Odor after Cleansing No No -Bioengineered Tissue No No -Bleeding Controlled with Pressure Pressure -Offloading No Yes -Type of Offloading Surgical Shoe -Treatment Response Procedure Procedure Tolerated Well Tolerated Well -Debridement - Subq, 1st 20sq cm Yes No #1- L HEEL -Time 11:21 11:11 16:02 -Correct Patient Yes Yes Yes -Correct Side, Site, Position Yes Yes Yes -Correct Procedure Yes Yes Yes -Procedure Performed Yes Yes Yes -Type of Procedure Debridement Debridement Debridement -Clinical Debridement Subcutaneous Subcutaneous Subcutaneous -Tissue Removed Subcutaneous Subcutaneous Subcutaneous -Post Debridement (cm) - Length 2.1 2.1 1.8 -Post Debridement (cm) - Width 2.6 2.4 2.0 -Post Debridement (cm) - Depth 0.5 1 0.4 -Total Square (Post) (cm) 5.46 5.04 3.60 -Area of Debridement (cm) - Length 2.1 2.1 1.8 -Area of Debridement (cm) - Width 2.6 2.4 2.0 -Total Square (Area) (cm) 5.46 5.04 3.60 -Tunneling No No No -Undermining/Tunneling No No No -Circular Undermining No No No -Wound/Ulcer Outcome Not Healed Not Healed Not Healed -Ulcer Cleansing Rinsed/ Rinsed/ Rinsed/ Irrigated with Irrigated with Irrigated with Saline Saline Saline -Foul Odor after Cleansing No No No -Bioengineered Tissue Yes No No -Type of Bioengineered Tissue Epifix Mesh Epifix -Expiration Date 08/30/25 -Product Lot Number [id number] -Percent Used 100 -Lot number of Saline Used [id number] -Bleeding Controlled with Pressure Pressure Pressure -Offloading No Yes Yes -Type of Offloading Surgical Shoe Surgical Shoe -Treatment Response Procedure Procedure Procedure Tolerated Well Tolerated Well Tolerated Well -Debridement - Subq, 1st 20sq cm No Yes No -Apply Skin Sub - 1st 25 sq cm - Feet 1 1 -Epifix (per sq cm) 4 -Epifix Mesh (per sq cm) 11 Pain Scale: 0-10 Numeric Is Patient Pain Free? Yes Yes Yes 01/20/21 08:11 Wound Center Nurse 2 #2- L MEDIAL HEEL -Time -Correct Patient No -Correct Side, Site, Position No -Correct Procedure No -Procedure Performed No -Type of Procedure -Clinical Debridement -Tissue Removed -Post Debridement (cm) - Length -Post Debridement (cm) - Width -Post Debridement (cm) - Depth -Total Square (Post) (cm) -Area of Debridement (cm) - Length -Area of Debridement (cm) - Width -Total Square (Area) (cm) -Tunneling -Undermining/Tunneling -Circular Undermining -Wound/Ulcer Outcome Not Healed -Ulcer Cleansing -Foul Odor after Cleansing -Bioengineered Tissue -Bleeding Controlled with -Offloading -Type of Offloading -Treatment Response -Debridement - Subq, 1st 20sq cm #1- L HEEL -Time 08:11 -Correct Patient Yes -Correct Side, Site, Position Yes -Correct Procedure Yes -Procedure Performed Yes -Type of Procedure Debridement -Clinical Debridement Subcutaneous -Tissue Removed Subcutaneous -Post Debridement (cm) - Length 1.9 -Post Debridement (cm) - Width 1.7 -Post Debridement (cm) - Depth 0.3 -Total Square (Post) (cm) 3.23 -Area of Debridement (cm) - Length 1.9 -Area of Debridement (cm) - Width 1.7 -Total Square (Area) (cm) 3.23 -Tunneling No -Undermining/Tunneling No -Circular Undermining No -Wound/Ulcer Outcome Not Healed -Ulcer Cleansing Rinsed/ Irrigated with Saline -Foul Odor after Cleansing No -Bioengineered Tissue Yes -Type of Bioengineered Tissue Epifix -Expiration Date 09/29/25 -Product Lot Number [id number] -Percent Used 100 -Lot number of Saline Used [id number] -Bleeding Controlled with Pressure -Offloading No -Type of Offloading -Treatment Response Procedure Tolerated Well -Debridement - Subq, 1st 20sq cm No -Apply Skin Sub - 1st 25 sq cm - Feet 1 -Epifix (per sq cm) 4 -Epifix Mesh (per sq cm) Pain Scale: 0-10 Numeric Is Patient Pain Free? Yes WC - Nurse 3 - General Ulcer D/C NN Start: 12/30/20 10:07 Freq: Status: Active Protocol: Activity Type Activity Date Activity User E-Sign Co-Sign Detail Recorded Client Recorded Date Recorded By Document 12/30/20 11:29 [facility] [id number] 12/30/20 11:32 [facility] Document 01/06/21 11:28 [id number] 01/06/21 11:28 Document 01/13/21 16:14 RB [id number] 01/13/21 16:16 RB 12/30/20 01/06/21 01/13/21 11:29 11:28 16:14 Wound Care Nurse 3 #2- L MEDIAL HEEL -Ulcer Cleansing Rinsed/ Irrigated with Saline -Foul Odor after Cleansing No No -Other Dressing BOLSTERED GAUZE . COMING BACK LATER W/ VAC SUPPLIES FOR APPLICATION -Primary Dressing Covered/Secured with Dry Gauze & Dry Gauze & Dry Gauze,Dry Roll Gauze, Roll Gauze, Gauze & Roll Secured with Secured with Gauze,Secured Tape Tape with Tape #1- L HEEL -Ulcer Cleansing Rinsed/ Rinsed/ Irrigated with Irrigated with Saline Saline -Foul Odor after Cleansing No -Negative Pressure Wound Therapy Continue -Setting (mmHg) 125 -Negative Pressure is Continuous -Primary Dressing Applied Other -Other Dressing BOLSTERED GAUZE DEISY WEISS RN -Primary Dressing Covered/Secured with Dry Gauze & Dry Gauze & Roll Gauze, Roll Gauze, Secured with Secured with Tape Tape -Other Covering COMING BACK LATER FOR VAC APPLICATION -NPWT Application Charge ($) NPWT </= 50 sq cm Teodora-Wound Care Barrier Left -Other félix Treatment Response Procedure Procedure Tolerated Well Tolerated Well Pain Scale: 0-10 Numeric Is Patient Pain Free? Yes Yes Yes WC - Visit Discharge Discharge Condition Stable Stable Stable Ambulatory Status Wheelchair Wheelchair Ambulatory Transportation Ambulance Private Auto transpoort Medication Reconcilliation completed & Yes No provided to patient/care provider Clinical Summary of Care Provided Yes Yes Facility Type Catheterization Laboratory Technician Care Facility Wound debrided: plantar heel Laterality: Left Wound Grade/Stage: grade 3 Type of Debridement: Excisional debridement Anesthesia Used: 5% Lidocaine Gel Depth: in the subcutaneous layer Percentage of wound debrided: 100 Instrument Used: #15 blade Tissue Removed: fibrous, devitalized subcutaneous, biofilm, slough Severity: Fat Layer Exposed Amount of bleeding with debridement: Mild Bleeding Controlled with: Pressure Patient tolerated procedure well Assessment/Plan Active Problems (Last Updated 10/03/20 @ 09:[address] 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 Osteomyelitis treated medically with IV antibiotics. Uncontrolled diabetes with neuropathy, updated hemoglobin A1c of 8.9%. Ruptured left Achilles tendon with calcaneus gait. ambulation difficulty Plan: I reviewed and discussed his case. Excisional debridement was performed as noted in the clinical panel. Clinically his infection status has improved and he has continued wound peripheral epithelialization. Advanced wound healing product, epifix applied today according standard protocol to optimize healingd. Additional secondary dry gauze dressing was applied. A wound VAC was ordered for when he returns home with a 125 mmHg setting. This will be kept intact for 1 week once approved and applied. Additional application of total contact cast will only be considered once he is transition off of the wound VAC in the future and if he is at a fpc facility where he can follow-up appropriately. We will see how responsibilities follow-up sessions are once he returns home prior to making any decisions on this. To proceed forward with obtaining a knee roller or modified scooter. To continue with wheelchair at this time. He was previously diagnosed with osteomyelitis with the following bone growth: Morganella morganii, Proteus, MRSA, coag negative strep, anaerobic cocci. He is on IV vancomycin and Zosyn with anticipated end date of 01-20-21. He also had a prior blood culture with lactobacillus which was considered likely a contamination. His most recent labs from between to include the following: white blood cell count 10.7, ESR 73, C-reactive protein 54.6, creatinine 1.02, GFR 79. He was seen by infectious disease today as well. Due to his osteomyelitis status I discussed the treatment option of hyperbaric oxygen therapy. He is doing well and I recommend continued sessions. This is medically necessary for limb salvage. He is at high risk for leg amputation. He will likely require long-term use of an ankle-foot orthotic due to his calcaneus style gait that is resulting from his ruptured Achilles tendon. Repair of this Achilles or arthrodesis of the ankle but only be considered if he was able to demonstrate appropriate postoperative care and remarkable improvement in lifestyle and hemoglobin A1c status. Consideration may also be given to percutaneous attempted Achilles reapproximation with a PARS type system. I recommend continuing with any nutritional supplementation available clinical skilled nursing. His noninvasive vascular studies were reviewed with triphasic PT and DP pulses bilateral. His right NADIA is 1.12 and left 1.16. His toe brachial index is 1.12 on the right and 1.34 on the left. There is no significant segmental pressure drop and therefore no arterial occlusive lesion is suspected. I answered his questions. To return to clinic in 1 week. Note: [employer] speech recognition residential electrician software was used to create portions of this document. Sound-alike and misspelled words, as well as other residential electrician errors may be contained in the documentation. 20 minutes was spent on this encounter. This included face to face and non face to face care including preparing for the visit, reviewing the history, performing the exam, counseling and providing education to the patient, family, or caregiver, ordering medications/test/ procedures if indicated as documented, communicating with other healthcare providers, documenting information in the medical record, interpreting / sharing this information when indicated as documented, and care coordination.
[2021-01-20 10:50] LABS: Bedside Glucose 153 mg/dL (70-110)
--- NOTE | 2021-01-20 13:53 | PCM.HBO.PN ---
History of Present Illness Date of Service: 01/20/21 Presenting Chief Complaint: left heel ulcer with osteomyelitis LIZETH BURGOS is a 60 year old currently undergoing hyperbaric oxygen therapy for Villela's grade 3 diabetic foot ulcer to the left heel with osteomyelitis. Progress: Today's hyperbaric oxygen session represents the 6th of 30 planned sessions of hyperbaric oxygen therapy. Tolerance of hyperbaric oxygen therapy: Hyperbaric oxygen therapy was administered as per the facility's protocol. Hyperbaric oxygen therapy was administered at 2 roel for 90 minutes with no air breaks. The patient tolerated hyperbaric oxygen therapy well, without complaints or complications. Upon emergence from the hyperbaric chamber, the patient's vital signs remained stable. He was discharged in good condition, See blood glucose levels documented elsewhere. He is status post eustachian tube placed bilaterally on January 13, 2021, without problems. Past Medical History Chronic Problems (Last Updated 10/03/20 @ 09:[address] 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 (Chronic) Osteomyelitis (Chronic) Allergies/Adverse Reactions: Allergies onion Allergy (Verified 12/07/20 19:18) Food Allergy SWELLING Home Medications: Ambulatory Orders Medication Instructions Recorded Acetaminophen [Tylenol Tablet] 650 mg PO Q6H PRN PRN tab 10/06/20 Insulin Glargine [Lantus SoloStar 35 units SC QHS 12/07/20 Pen] Glucerna Shake 120 ml PO 4X/DAY liquid 12/11/20 Insulin Lispro [Humalog KwikPen] See Protocol SC ACHS insuln.pen 12/11/20 Pantoprazole Sodium [Protonix] 40 mg PO BID tab 12/11/20 Piperacil/Tazobactam [Zosyn] 3.375 gm IV Q8 40 Days #120 vial 12/11/20 Paternal Family History: - - His father from an industrial accident. Maternal Family History: - - Denies knowledge of maternal medical history Lives: Alf Smoking Status: Former smoker Tobacco Use: Non-smoker Alcohol: None Drugs: None Physical Exam Vital Signs Temp Pulse Resp BP 98.1 F 83 17 150/80 H 01/20/21 08:33 01/20/21 08:33 01/20/21 08:33 01/20/21 08:33 General: Alert, Oriented x3, Cooperative, No apparent distress HEENT: Atraumatic, TM's Clear Lungs: Clear to auscultation, Normal air movement Cardiovascular: Regular rate, Regular Rhythm Psych/Mental Status: Normal Affect, Appropriate, Alert and oriented to time, place, person, mood and affect Assessment/Plan Active Problems (Last Updated 10/03/20 @ 09:[address] 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 Treatment Course Number Number of HBO Treatments 30 Ordered Treatment Course Number 1 Treatment # 6 Chamber # 2 Chamber Type Monoplace Treatment Plan BANDAR (Atmospheric Absolute) 2 Number of Minutes 90 Number of Air Breaks 0
[2021-01-25 07:55] LABS: Bedside Glucose 253 mg/dL (70-110)
[2021-01-25 08:46] VITALS: BP 103/51; BP 127/94; PULSE 74; RESP 16; RESP 18; TEMP 36.5
--- NOTE | 2021-01-25 09:05 | HBO.PN.PCM_ITS ---
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 Progress: Today's hyperbaric oxygen session represents the 7th of 30 planned sessions of hyperbaric oxygen therapy. Tolerance of hyperbaric oxygen therapy: Hyperbaric oxygen therapy was administered as per the facility's protocol. Hyperbaric oxygen therapy was administered at 2 orel for 90 minutes with no air breaks. The patient tolerated hyperbaric oxygen therapy well, without complaints or complications. Upon emergence from the hyperbaric chamber, the patient's vital signs remained stable. He was discharged in good condition, See blood glucose levels documented elsewhere. He is status post eustachian tube placed bilaterally on January 13, 2021, without problems. Past Medical History Chronic Problems (Last Updated 10/03/20 @ 09:[address] 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, left (Chronic) Diabetes (Chronic) COPD (chronic obstructive pulmonary disease) (Chronic) Rheumatoid arthritis (Chronic) 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 (Chronic) Osteomyelitis (Chronic) Allergies/Adverse Reactions: Allergies onion Allergy (Verified 12/07/20 19:18) Food Allergy SWELLING Home Medications: Ambulatory Orders Medication Instructions Recorded Acetaminophen [Tylenol Tablet] 650 mg PO Q6H PRN PRN tab 10/06/20 Insulin Glargine [Lantus SoloStar 35 units SC QHS 12/07/20 Pen] Glucerna Shake 120 ml PO 4X/DAY liquid 12/11/20 Insulin Lispro [Humalog KwikPen] See Protocol SC ACHS insuln.pen 12/11/20 Pantoprazole Sodium [Protonix] 40 mg PO BID tab 12/11/20 Paternal Family History: - - His father from an industrial accident. Maternal Family History: - - Denies knowledge of maternal medical history Lives: Retirement Smoking Status: Former smoker Tobacco Use: Non-smoker Alcohol: None Drugs: None Physical Exam Vital Signs Temp Pulse Resp BP 97.7 F L 74 16 103/51 L 01/25/21 08:46 01/25/21 08:46 01/25/21 08:46 01/25/21 08:46 General: Alert, Oriented x3, Cooperative, No apparent distress HEENT: Atraumatic, TM's Clear Lungs: Clear to auscultation, Normal air movement Cardiovascular: Regular rate, Regular Rhythm Psych/Mental Status: Normal Affect, Appropriate, Alert and oriented to time, place, person, mood and affect Assessment/Plan Active Problems (Last Updated 10/03/20 @ 09:[address] Deann Calloway, [facility]) Type 2 diabetes mellitus with diabetic polyneuropathy (Chronic) Calcaneal gait (Chronic) Severe hyperglycemia due to diabetes mellitus (Acute) Ulcer of left heel (Chronic) COPD (chronic obstructive pulmonary disease) (Chronic) Rheumatoid arthritis (Chronic) 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 (Chronic) Osteomyelitis (Chronic) The patient appears to be tolerating hyperbaric oxygen therapy well, which will be continued as per the patient's medical plan. Treatment Course Number Number of HBO Treatments 30 Ordered Treatment Course Number 1 Treatment # 7 Chamber # 2 Chamber Type Monoplace Treatment Plan BANDAR (Atmospheric Absolute) 2 Number of Minutes 90 Number of Air Breaks 0
[2021-01-25 10:26] LABS: Bedside Glucose 257 mg/dL (70-110)
[2021-01-26 08:10] LABS: Bedside Glucose 294 mg/dL (70-110)
[2021-01-26 08:10] LABS: Bedside Glucose 297 mg/dL (70-110)
--- NOTE | 2021-01-26 08:31 | WC ---
01/26/21 Patient did not dive today d/t increased blood sugar levels of 294. Waited 20 minutes and rechecked with a result of 297. notified and gave order to not go through with treatment today.
--- NOTE | 2021-01-26 11:45 | HBO.PN.PCM_ITS ---
History of Present Illness Date of Service: 01/26/21 - See notation under Plan for today's date. Presenting Chief Complaint: left heel ulcer with osteomyelitis LIZETH BURGOS is a 60 year old currently undergoing hyperbaric oxygen therapy for Villela's grade 3 diabetic foot ulcer to the left heel with os teomyelitis. Progress: Today's hyperbaric oxygen session represents the 7th of 30 planned sessions of hyperbaric oxygen therapy. Tolerance of hyperbaric oxygen therapy: Hyperbaric oxygen therapy was administered as per the facility's protocol. Hyperbaric oxygen therapy was administered at 2 roel for 90 minutes with no air breaks. The patient tolerated hyperbaric oxygen therapy well, without complaints or complications. Upon emergence from the hyperbaric chamber, the patient's vital signs remained stable. He was discharged in good condition, See blood glucose levels documented elsewhere. He is status post eustachian tube placed bilaterally on January 13, 2021, without problems. Past Medical History Chronic Problems (Last Updated 10/03/20 @ 09:[address] 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, left (Chronic) Diabetes (Chronic) COPD (chronic obstructive pulmonary disease) (Chronic) Rheumatoid arthritis (Chronic) 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 (Chronic) Osteomyelitis (Chronic) Allergies/Adverse Reactions: Allergies onion Allergy (Verified 12/07/20 19:18) Food Allergy SWELLING Home Medications: Ambulatory Orders Medication Instructions Recorded Acetaminophen [Tylenol Tablet] 650 mg PO Q6H PRN PRN tab 10/06/20 Insulin Glargine [Lantus SoloStar 35 units SC QHS 12/07/20 Pen] Glucerna Shake 120 ml PO 4X/DAY liquid 12/11/20 Insulin Lispro [Humalog KwikPen] See Protocol SC ACHS insuln.pen 12/11/20 Pantoprazole Sodium [Protonix] 40 mg PO BID tab 12/11/20 Paternal Family History: - - His father from an industrial accident. Maternal Family History: - - Denies knowledge of maternal medical history Lives: [facility] Smoking Status: Former smoker Tobacco Use: Non-smoker Alcohol: None Drugs: None Physical Exam Vital Signs Temp Pulse Resp BP 97.7 F L 74 18 127/94 H 01/25/21 08:46 01/25/21 08:46 01/25/21 08:46 01/25/21 08:46 Assessment/Plan Active Problems (Last Updated 10/03/20 @ 09:[address] Deann Calloway, [facility]) Type 2 diabetes mellitus with diabetic polyneuropathy (Chronic) Calcaneal gait (Chronic) Severe hyperglycemia due to diabetes mellitus (Acute) Ulcer of left heel (Chronic) COPD (chronic obstructive pulmonary disease) (Chronic) Rheumatoid arthritis (Chronic) 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 However, his pre-dive blood sugar was elevated beyond designated protocols. The patient was seated in the waiting room and his blood sugar was rechecked at intervals. His blood sugars remained elevated beyond the acceptable range, and his hyperbaric oxygen therapy session for today was canceled. Today's blood sugar measurements are documented elsewhere, within the [employer] system. It is anticipated that the patient will return tomorrow in anticipation of continuation of his hyperbaric oxygen therapy treatment protocol. Treatment Course Number Number of HBO Treatments 30 Ordered Treatment Course Number 1 Treatment # 7 Chamber # 2 Chamber Type Monoplace Treatment Plan BANDAR (Atmospheric Absolute) 2 Number of Minutes 90 Number of Air Breaks 0
[2021-01-27 07:58] VITALS: BP 106/71; PULSE 111; RESP 18; TEMP 37; BMI 25.4
[2021-01-27 08:06] LABS: Bedside Glucose 88 mg/dL (70-110)
[2021-01-27 09:46] LABS: Bedside Glucose 155 mg/dL (70-110)
[2021-01-27 09:56] VITALS: BP 143/80; PULSE 101; RESP 16; TEMP 36.7
--- NOTE | 2021-01-27 11:11 | PN.PCM_ITS ---
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 Code(s): L97.523 - Non-pressure 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 (2) Type 2 diabetes mellitus with diabetic polyneuropathy Status: Chronic Code(s): E11.42 - Type 2 diabetes mellitus with diabetic polyneuropathy (3) Calcaneal gait Status: Chronic Code(s): R26.89 - Other abnormalities of gait and mobility (4) Rheumatoid arthritis Status: Chronic Code(s): M06.9 - Rheumatoid arthritis, unspecified (5) Osteomyelitis Status: Chronic Code(s): M86.9 - Osteomyelitis, unspecified Type of Wound Date of Service: 01/27/21 Chief Complaint: left heel ulcer with osteomyelitis History of Wound: This 60-year-old uncontrolled diabetic follows up today for chronic left heel wound. He was recently hospitalized for sepsis and osteomyelitis of the calcaneus. He is now residing at home and has completed a full course of IV antibiotics for medical management of osteomyelitis of his heel. He denies lower extremity pain, fever, chill, nausea, vomiting. His case is complicated with uncontrolled diabetes, calcaneus gait limb position due to prior ruptured Achilles tendon, and noncompliance. He has been continuing with wound VAC treatment and also started hyperbaric oxygen therapy. He is also here for hyperbaric oxygen therapy today. Progress of Wound: Improving. Medial opened again - Physical Exam Vital Signs Temp Pulse Resp BP 98.0 F 101 H 16 143/80 H 01/27/21 09:56 01/27/21 09:56 01/27/21 09:56 01/27/21 09:56 General: Alert, Oriented x3, Cooperative, No apparent distress Extremities: No cyanosis, Capillary Refill Less than 3 Seconds, No Calf Tenderness, Diminished Peripheral Pulses, Edema Skin: Ulcer/ Wound - No purulence, erythema, streaking, odor, infection. Granulation tissue improvement in peripheral epithelialization is noted. No exposed bone. Return of skin discontinuity to the medial heel is noted granulation tissue and without deep probing Wound Measurements and Assessment WC - Nurse 1 - General Ulcer Measurement Start: 12/30/20 10:07 Freq: Status: Active Protocol: Activity Type Activity Date Activity User E-Sign Co-Sign Detail Recorded Client Recorded Date Recorded By Document 01/27/21 07:58 BMF [id number] 01/27/21 08:10 [facility] 01/27/21 07:58 Wound Center Nurse 1 [Ulcer Assessment] #2- L MEDIAL HEEL -Combined with other wound No -Current Size (cm) - Length 0.5 -Current Size (cm) - Width 0.5 -Current Size (cm) - Depth 0.5 -Total Square Cm 0.25 -Photo Taken No -Epithelialization None Present -Tunneling No -Undermining/Tunneling Yes -Undermining/Tunneling Starts (O' 12 clock) -Undermining/Tunneling Ends (O'clock) 12 -Maximum Distance (cm) 0.7 -Circular Undermining Yes -Exudate Amt Small -Exudate Type Purulent -Wound Margin Distinct, Outline Attached -Granulation Amt Large (67-100%) -Granulation Quality Red -Slough/Fibrin Yes -Necrosis Amt Small (1-33%) -Necrotic Tissue Type Adherent Slough -Texture (Teodora-wound Skin Appearance) Assessed, Scarring -Moisture (Teodora-wound Skin Appearance Assessed ) -Color (Teodora-wound Skin Appearance) Assessed -Temperature (Teodora-wound Skin No Abnormality Appearance) (Pt Warm) -Tenderness on Palpation (Teodora-wound No Skin Appearance) -Ulcer Cleansing SOAPY WATER -Foul Odor after Cleansing No -Anesthetic Used 4% Lidocaine Solution #1- L HEEL -Combined with other wound No -Current Size (cm) - Length 1.6 -Current Size (cm) - Width 1.7 -Current Size (cm) - Depth 0.3 -Total Square Cm 2.72 -Epithelialization Small 1-33% -Tunneling No -Undermining/Tunneling Yes -Undermining/Tunneling Starts (O' 5 clock) -Undermining/Tunneling Ends (O'clock) 1 -Maximum Distance (cm) 0.6 -Circular Undermining No -Exudate Amt Small -Exudate Type Serosanguineous -Wound Margin Thickened -Granulation Amt Medium (34-66%) -Granulation Quality Pale,Red -Slough/Fibrin Yes -Necrosis Amt Small (1-33%) -Necrotic Tissue Type Adherent Slough -Texture (Teodora-wound Skin Appearance) Assessed, Scarring -Moisture (Teodora-wound Skin Appearance Assessed ) -Color (Teodora-wound Skin Appearance) Assessed -Temperature (Teodora-wound Skin No Abnormality Appearance) (Pt Warm) -Tenderness on Palpation (Teodora-wound No Skin Appearance) -Ulcer Cleansing SOAPY WATER -Foul Odor after Cleansing No -Anesthetic Used 4% Lidocaine Solution WC - Nurse 2 - General Ulcer CM Notes Start: 12/30/20 10:07 Freq: Status: Active Protocol: Activity Type Activity Date Activity User E-Sign Co-Sign Detail Recorded Client Recorded Date Recorded By Document 01/27/21 08:21 SUSANNE [id number] 01/27/21 08:23 SUSANNE 01/27/21 08:21 Wound Center Nurse 2 [Procedure/Treatment] #2- L MEDIAL HEEL -Correct Patient No -Correct Side, Site, Position No -Correct Procedure No -Procedure Performed No -Wound/Ulcer Outcome Not Healed #1- L HEEL -Time 08:21 -Correct Patient Yes -Correct Side, Site, Position Yes -Correct Procedure Yes -Procedure Performed Yes -Type of Procedure Debridement -Clinical Debridement Subcutaneous -Tissue Removed Subcutaneous -Post Debridement (cm) - Length 1.7 -Post Debridement (cm) - Width 1.7 -Post Debridement (cm) - Depth 0.3 -Total Square (Post) (cm) 2.89 -Area of Debridement (cm) - Length 1.7 -Area of Debridement (cm) - Width 1.7 -Total Square (Area) (cm) 2.89 -Tunneling No -Undermining/Tunneling No -Circular Undermining No -Wound/Ulcer Outcome Not Healed -Ulcer Cleansing Rinsed/ Irrigated with Saline -Foul Odor after Cleansing No -Bioengineered Tissue Yes -Type of Bioengineered Tissue Epifix -Expiration Date 09/29/25 -Product Lot Number [id number] -Percent Used 100 -Lot number of Saline Used [id number] -Bleeding Controlled with Pressure -Offloading Yes -Type of Offloading Surgical Shoe -Treatment Response Procedure Tolerated Well -Debridement - Subq, 1st 20sq cm No -Apply Skin Sub - 1st 25 sq cm - Feet 1 -Epifix (per sq cm) 4 [See Physician Procedure note for Specifics] Pain Scale: 0-10 Numeric [Pain] -Is Patient Pain Free? Yes Musculoskeletal: No Tenderness to Palpation of Joints or Extremities, Muscle Wasting, - - Ruptured Achilles tendon with calcaneus gait position Neurological: - - Lack of normal epicritic sensation light touch is consistent with neuropathic status Psych/Mental Status: Normal Affect, Appropriate Debridement Note Post-Debridement Measurements/Treatment WC - Nurse 2 - General Ulcer CM Notes Start: 12/30/20 10:07 Freq: Status: Active Protocol: Activity Type Activity Date Activity User E-Sign Co-Sign Detail Recorded Client Recorded Date Recorded By Document 12/30/20 11:12 JF [id number] 12/30/20 11:23 JF Document 01/06/21 11:09 JF [id number] 01/06/21 11:14 JF Document 01/13/21 16:02 [id number] 01/13/21 16:03 Document 01/20/21 08:11 JF [id number] 01/20/21 08:21 JF Document 01/27/21 08:21 [id number] 01/27/21 08:23 JF 12/30/20 01/06/21 01/13/21 11:12 11:09 16:02 Wound Center Nurse 2 #2- L MEDIAL HEEL -Time 11:12 11:11 -Correct Patient Yes No No -Correct Side, Site, Position Yes No No -Correct Procedure Yes No No -Procedure Performed Yes No No -Type of Procedure Debridement -Clinical Debridement Subcutaneous -Tissue Removed Subcutaneous -Post Debridement (cm) - Length 0.3 -Post Debridement (cm) - Width 0.3 -Post Debridement (cm) - Depth 0.4 -Total Square (Post) (cm) 0.09 -Area of Debridement (cm) - Length 0.3 -Area of Debridement (cm) - Width 0.3 -Total Square (Area) (cm) 0.09 -Tunneling No -Undermining/Tunneling No -Circular Undermining No -Wound/Ulcer Outcome Not Healed Not Healed Not Healed -Ulcer Cleansing Rinsed/ Rinsed/ Irrigated with Irrigated with Saline Saline -Foul Odor after Cleansing No No -Bioengineered Tissue No No -Bleeding Controlled with Pressure Pressure -Offloading No Yes -Type of Offloading Surgical Shoe -Treatment Response Procedure Procedure Tolerated Well Tolerated Well -Debridement - Subq, 1st 20sq cm Yes No #1- L HEEL -Time 11:21 11:11 16:02 -Correct Patient Yes Yes Yes -Correct Side, Site, Position Yes Yes Yes -Correct Procedure Yes Yes Yes -Procedure Performed Yes Yes Yes -Type of Procedure Debridement Debridement Debridement -Clinical Debridement Subcutaneous Subcutaneous Subcutaneous -Tissue Removed Subcutaneous Subcutaneous Subcutaneous -Post Debridement (cm) - Length 2.1 2.1 1.8 -Post Debridement (cm) - Width 2.6 2.4 2.0 -Post Debridement (cm) - Depth 0.5 1 0.4 -Total Square (Post) (cm) 5.46 5.04 3.60 -Area of Debridement (cm) - Length 2.1 2.1 1.8 -Area of Debridement (cm) - Width 2.6 2.4 2.0 -Total Square (Area) (cm) 5.46 5.04 3.60 -Tunneling No No No -Undermining/Tunneling No No No -Circular Undermining No No No -Wound/Ulcer Outcome Not Healed Not Healed Not Healed -Ulcer Cleansing Rinsed/ Rinsed/ Rinsed/ Irrigated with Irrigated with Irrigated with Saline Saline Saline -Foul Odor after Cleansing No No No -Bioengineered Tissue Yes No No -Type of Bioengineered Tissue Epifix Mesh Epifix -Expiration Date 08/30/25 -Product Lot Number [id number] -Percent Used 100 -Lot number of Saline Used [id number] -Bleeding Controlled with Pressure Pressure Pressure -Offloading No Yes Yes -Type of Offloading Surgical Shoe Surgical Shoe -Treatment Response Procedure Procedure Procedure Tolerated Well Tolerated Well Tolerated Well -Debridement - Subq, 1st 20sq cm No Yes No -Apply Skin Sub - 1st 25 sq cm - Feet 1 1 -Epifix (per sq cm) 4 -Epifix Mesh (per sq cm) 11 Pain Scale: 0-10 Numeric Is Patient Pain Free? Yes Yes Yes 01/20/21 01/27/21 08:11 08:21 Wound Center Nurse 2 #2- L MEDIAL HEEL -Time -Correct Patient No No -Correct Side, Site, Position No No -Correct Procedure No No -Procedure Performed No No -Type of Procedure -Clinical Debridement -Tissue Removed -Post Debridement (cm) - Length -Post Debridement (cm) - Width -Post Debridement (cm) - Depth -Total Square (Post) (cm) -Area of Debridement (cm) - Length -Area of Debridement (cm) - Width -Total Square (Area) (cm) -Tunneling -Undermining/Tunneling -Circular Undermining -Wound/Ulcer Outcome Not Healed Not Healed -Ulcer Cleansing -Foul Odor after Cleansing -Bioengineered Tissue -Bleeding Controlled with -Offloading -Type of Offloading -Treatment Response -Debridement - Subq, 1st 20sq cm #1- L HEEL -Time 08:11 08:21 -Correct Patient Yes Yes -Correct Side, Site, Position Yes Yes -Correct Procedure Yes Yes -Procedure Performed Yes Yes -Type of Procedure Debridement Debridement -Clinical Debridement Subcutaneous Subcutaneous -Tissue Removed Subcutaneous Subcutaneous -Post Debridement (cm) - Length 1.9 1.7 -Post Debridement (cm) - Width 1.7 1.7 -Post Debridement (cm) - Depth 0.3 0.3 -Total Square (Post) (cm) 3.23 2.89 -Area of Debridement (cm) - Length 1.9 1.7 -Area of Debridement (cm) - Width 1.7 1.7 -Total Square (Area) (cm) 3.23 2.89 -Tunneling No No -Undermining/Tunneling No No -Circular Undermining No No -Wound/Ulcer Outcome Not Healed Not Healed -Ulcer Cleansing Rinsed/ Rinsed/ Irrigated with Irrigated with Saline Saline -Foul Odor after Cleansing No No -Bioengineered Tissue Yes Yes -Type of Bioengineered Tissue Epifix Epifix -Expiration Date 09/29/25 09/29/25 -Product Lot Number [id number] -Percent Used 100 100 -Lot number of Saline Used [id number] -Bleeding Controlled with Pressure Pressure -Offloading No Yes -Type of Offloading Surgical Shoe -Treatment Response Procedure Procedure Tolerated Well Tolerated Well -Debridement - Subq, 1st 20sq cm No No -Apply Skin Sub - 1st 25 sq cm - Feet 1 1 -Epifix (per sq cm) 4 4 -Epifix Mesh (per sq cm) Pain Scale: 0-10 Numeric Is Patient Pain Free? Yes Yes WC - Nurse 3 - General Ulcer D/C NN Start: 12/30/20 10:07 Freq: Status: Active Protocol: Activity Type Activity Date Activity User E-Sign Co-Sign Detail Recorded Client Recorded Date Recorded By Document 12/30/20 11:29 BMF [id number] 12/30/20 11:32 BMF Document 01/06/21 11:28 JF [id number] 01/06/21 11:28 JF Document 01/13/21 16:14 RB [id number] 01/13/21 16:16 RB 12/30/20 01/06/21 01/13/21 11:29 11:28 16:14 Wound Care Nurse 3 #2- L MEDIAL HEEL -Ulcer Cleansing Rinsed/ Irrigated with Saline -Foul Odor after Cleansing No No -Other Dressing BOLSTERED GAUZE . COMING BACK LATER W/ VAC SUPPLIES FOR APPLICATION -Primary Dressing Covered/Secured with Dry Gauze & Dry Gauze & Dry Gauze,Dry Roll Gauze, Roll Gauze, Gauze & Roll Secured with Secured with Gauze,Secured Tape Tape with Tape #1- L HEEL -Ulcer Cleansing Rinsed/ Rinsed/ Irrigated with Irrigated with Saline Saline -Foul Odor after Cleansing No -Negative Pressure Wound Therapy Continue -Setting (mmHg) 125 -Negative Pressure is Continuous -Primary Dressing Applied Other -Other Dressing BOLSTERED GAUZE DEISY WEISS RN -Primary Dressing Covered/Secured with Dry Gauze & Dry Gauze & Roll Gauze, Roll Gauze, Secured with Secured with Tape Tape -Other Covering COMING BACK LATER FOR VAC APPLICATION -NPWT Application Charge ($) NPWT </= 50 sq cm Teodora-Wound Care Barrier Left -Other félix Treatment Response Procedure Procedure Tolerated Well Tolerated Well Pain Scale: 0-10 Numeric Is Patient Pain Free? Yes Yes Yes WC - Visit Discharge Discharge Condition Stable Stable Stable Ambulatory Status Wheelchair Wheelchair Ambulatory Transportation Ambulance Private Auto transpoort Medication Reconcilliation completed & Yes No provided to patient/care provider Clinical Summary of Care Provided Yes Yes Facility Type [facility] Wound debrided: heel Laterality: Left Wound Grade/Stage: grade 3 Type of Debridement: Excisional debridement Anesthesia Used: 5% Lidocaine Gel Depth: in the subcutaneous layer Percentage of wound debrided: 100 Tissue Removed: fibrous, devitalized subcutaneous, biofilm, slough Severity: Fat Layer Exposed Amount of bleeding with debridement: Mild Bleeding Controlled with: Pressure Patient tolerated procedure well - Additional Wound Wound debrided: medial heel Laterality: Left Wound Grade/Stage: grade 1 Type of Debridement: Excisional debridement Anesthesia Used: 5% Lidocaine Gel Depth: in the subcutaneous layer Percentage of wound debrided: 100 Instrument Used: #15 blade Tissue Removed: fibrous, devitalized subcutaneous, biofilm, slough Severity: Fat Layer Exposed Amount of bleeding with debridement: Mild Bleeding Controlled with: Pressure Patient tolerated procedure: Patient tolerated procedure well Assessment/Plan Active Problems (Last Updated 01/26/21 @ 13:21 by Tatum Bourne) Type 2 diabetes mellitus with diabetic polyneuropathy (Chronic) Calcaneal gait (Chronic) Severe hyperglycemia due to diabetes mellitus (Acute) Ulcer of left heel (Chronic) COPD (chronic obstructive pulmonary disease) (Chronic) Rheumatoid arthritis (Chronic) 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 Osteomyelitis treated medically with IV antibiotics. Uncontrolled diabetes with neuropathy, updated hemoglobin A1c of 8.9%. Ruptured left Achilles tendon with calcaneus gait. ambulation difficulty Plan: I reviewed and discussed his case. Excisional debridement was performed as noted in the clinical panel. Clinically his infection status has improved and he has continued wound peripheral epithelialization. Advanced wound healing product, epifix applied today according standard protocol to optimize healingd. Additional secondary dry gauze dressing was applied. A wound VAC was ordered for when he returns home with a 125 mmHg setting. This will be kept intact for 1 week once approved and applied. Additional application of total contact cast will only be considered once he is transition off of the wound VAC in the future and if he is at a alf facility where he can follow-up appropriately. We will see how responsibilities follow-up sessions are once he returns home prior to making any decisions on this. To proceed forward with using a knee roller or modified scooter. To continue with wheelchair at this time. He was previously diagnosed with osteomyelitis with the following bone growth: Morganella morganii, Proteus, MRSA, coag negative strep, anaerobic cocci. He is on IV vancomycin and Zosyn with anticipated end date of 01-20-21. He also had a prior blood culture with lactobacillus which was considered likely a contamination. His most recent labs from between to include the following: white blood cell count 10.7, ESR 73, C-reactive protein 54.6, creatinine 1.02, GFR 79. He completed this course and will follow up with his infectious disease on an as-needed basis. Due to his osteomyelitis status I discussed the treatment option of hyperbaric oxygen therapy. He is doing well and I recommend continued sessions. This is medically necessary for limb salvage. He is at high risk for leg amputation. He will likely require long- term use of an ankle-foot orthotic due to his calcaneus style gait that is resulting from his ruptured Achilles tendon. Repair of this Achilles or arthrodesis of the ankle but only be considered if he was able to demonstrate appropriate postoperative care and remarkable improvement in lifestyle and hemoglobin A1c status. Consideration may also be given to percutaneous attempted Achilles reapproximation with a PARS type system. I recommend continuing with any nutritional supplementation available clinical prison. His noninvasive vascular studies were reviewed with triphasic PT and DP pulses bilateral. His right NADAI is 1.12 and left 1.16. His toe brachial index is 1.12 on the right and 1.34 on the left. There is no significant segmental pressure drop and therefore no arterial occlusive lesion is suspected. I answered his questions. To return to clinic in 1 week. Note: [employer] speech recognition online media buyer software was used to create portions of this document. Sound-alike and misspelled words, as well as other online media buyer errors may be contained in the documentation.
--- NOTE | 2021-01-27 12:01 | HBO.PN.PCM_ITS ---
History of Present Illness Date of Service: 01/27/21 Presenting Chief Complaint: left heel ulcer with osteomyelitis LIZETH BURGOS is a 60 year old currently undergoing hyperbaric oxygen therapy for Villela's grade 3 diabetic foot ulcer to the left heel with osteomyelitis. Progress: Today's hyperbaric oxygen session represents the 7th of 30 planned sessions of hyperbaric oxygen therapy. Tolerance of hyperbaric oxygen therapy: Hyperbaric oxygen therapy was administered as per the facility's protocol. Hyperbaric oxygen therapy was administered at 2 roel for 90 minutes with no air breaks. The patient's blood sugars were low today running around 110 and we did manage to get it up to 129. Was willing to dive and wanted to dive so we let him go down and monitor him closely. But diving he developed right ear pain and started crying so patient was brought up slowly and discontinued. Right eardrum was red patient was started on Augmentin 875 mg p.o. twice daily for 10 days patient's tubes are in place bilaterally and appear to be in good form. 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 Maternal Family History: Family History (Last Updated 01/26/21 @ 13:22 by Tatum Bourne) Grandmother Diabetes Family History: - - Denies knowledge of maternal medical history Lives: Retirement Smoking Status: Former smoker Tobacco Use: Non-smoker Alcohol: None Drugs: None Physical Exam Vital Signs Temp Pulse Resp BP 98.0 F 101 H 16 143/80 H 01/27/21 09:56 01/27/21 09:56 01/27/21 09:56 01/27/21 09:56 Assessment/Plan Active Problems (Last Updated 01/26/21 @ 13:21 by Tatum Bourne) Type 2 diabetes mellitus with diabetic polyneuropathy (Chronic) Calcaneal gait (Chronic) Severe hyperglycemia due to diabetes mellitus (Acute) Ulcer of left heel (Chronic) COPD (chronic obstructive pulmonary disease) (Chronic) Rheumatoid arthritis (Chronic) 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 However, his pre-dive blood sugar was elevated beyond designated protocols. The patient was seated in the waiting room and his blood sugar was rechecked at intervals. His blood sugars remained elevated beyond the acceptable range, and his hyperbaric oxygen therapy session for today was canceled. Today's blood sugar measurements are documented elsewhere, within the [employer] system. It is anticipated that the patient will return tomorrow in anticipation of continuation of his hyperba maksim oxygen therapy treatment protocol. 01/27/21 patient was released without HBO treatment today unable to tolerate due to right ear infection patient was started on Augmentin and was discharged from the wound center 3 check to see how he feels tomorrow or the next day to restart his HBO treatments Treatment Course Number Number of HBO Treatments 30 Ordered Treatment Course Number 1 Treatment # 8 Chamber # 2 Chamber Type Monoplace Treatment Plan BANDAR (Atmospheric Absolute) 2 Number of Minutes 90 Number of Air Breaks 0
[2021-01-27 15:56] LABS: Bedside Glucose 122 mg/dL (70-110)
[2021-01-27 15:56] LABS: Bedside Glucose 122 mg/dL (70-110)
== END 2021-01-27 23:59 ==
LOC: WC 08:00
PROVIDERS: Visit Provider Podiatrist
DX: E11.621 Type 2 diabetes mellitus with foot ulcer (principal); L97.423 Non-pressure chronic ulcer of left heel and midfoot with necrosis of muscle; E11.69 Type 2 diabetes mellitus with other specified complication; M86.672 Other chronic osteomyelitis, left ankle and foot; R26.89 Other abnormalities of gait and mobility; E11.42 Type 2 diabetes mellitus with diabetic polyneuropathy; E11.65 Type 2 diabetes mellitus with hyperglycemia; J44.9 Chronic obstructive pulmonary disease, unspecified; M06.9 Rheumatoid arthritis, unspecified; S86.012A Strain of left Achilles tendon, initial encounter; X58.XXXA Exposure to other specified factors, initial encounter; Y93.9 Activity, unspecified; Y92.9 Unspecified place or not applicable; Y99.9 Unspecified external cause status; H61.23 Impacted cerumen, bilateral; Z79.4 Long term (current) use of insulin; Z91.19 Patient's noncompliance with other medical treatment and regimen; Z87.891 Personal history of nicotine dependence; Z86.711 Personal history of pulmonary embolism
CPT/HCPCS: 11042; 15275; 82962; 97605; 99183; 99213; Q4186; G0277; G0463

== ENCOUNTER 2021-02-25 08:00 | Outpatient (RCR) | payer MEDICAID, SELFPAY ==
[2021-01-27 12:05] VITALS: BMI 28.8
[2021-01-28 00:38] VITALS: BP 143/80; PULSE 101; RESP 16; TEMP 36.7
[2021-02-01 07:51] LABS: Bedside Glucose 169 mg/dL (70-110)
--- NOTE | 2021-02-01 08:13 | HBO.PN.PCM_ITS ---
History of Present Illness Date of Service: 02/01/21 Presenting Chief Complaint: left heel ulcer with osteomyelitis LIZETH BURGOS is a 60 year old currently undergoing hyperbaric oxygen therapy for Villela's grade 3 diabetic foot ulcer to the left heel with osteomyelitis. Progress: Today's hyperbaric oxygen session represents the 8th of 30 planned sessions of hyperbaric oxygen therapy. Tolerance of hyperbaric oxygen therapy: Hyperbaric oxygen therapy was Started as per the facility's protocol. Unfortunately, he did complain of ear pain that occurred prior to diving to 1[employer]5 [employer]. The session was aborted. See patients post dive documented vital signs. He was referred back to ENT. It is recommen ded that he not dive until ENT he releases him. 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 (Chronic) Osteomyelitis (Chronic) Allergies/Adverse Reactions: Allergies onion Allergy (Verified 01/26/21 13:16) Food Allergy SWELLING Home Medications: Ambulatory Orders Medication Instructions Recorded insulin glargine 100 unit/mL (3 50 unit SC QHS 30 Days #15 ml 01/26/21 mL) subcutaneous pen insulin lispro 100 unit/mL 8 unit SC TID 30 Days #7.2 ml 01/26/21 subcutaneous pen blood sugar diagnostic See Rx Instructions .ROUTE 01/28/21 .MEDSUPPLY #200 each Paternal Family History: Family History (Last Updated 01/26/21 @ 13:22 by Tatum Bourne) Grandmother Diabetes Family History: - - His father from an industrial accident. Maternal Family History: Family History (Last Updated 01/26/21 @ 13:22 by Tatum Bourne) Grandmother Diabetes Family History: - - Denies knowledge of maternal medical history Smoking Status: Former smoker Tobacco Use: Non-smoker Physical Exam Vital Signs Temp Pulse Resp BP 98.0 F 101 H 16 143/80 H 01/28/21 00:38 01/28/21 00:38 01/28/21 00:38 01/28/21 00:38 General: Alert, Oriented x3, Cooperative, No apparent distress HEENT: Atraumatic, TM's Clear - old bloody drainage in right ear canal, imp roving Lungs: Clear to auscultation, Normal air movement Cardiovascular: Regular rate, Regular Rhythm Psych/Mental Status: Normal Affect, Appropriate, Alert and oriented to time, place, person, mood and affect Assessment/Plan The patient Was not able to tolerate today's hyperbaric oxygen therapy. He did experience ear pain. He is referred back to the ENT doctor that placed his bilateral eustachian tubes. We await recommendations prior to any rescheduled hyperbaric oxygen therapy. Treatment Course Number Treatment Course Number 1 Treatment # 8
[2021-02-01 12:21] VITALS: BP 111/62; PULSE 105; RESP 16
[2021-02-03 08:09] VITALS: BP 165/87; PULSE 98; RESP 18; TEMP 36.7; BMI 28.8
--- NOTE | 2021-02-03 08:32 | PCM.WC.PN ---
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 Code(s): L97.523 - Non-pressure 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 (2) Type 2 diabetes mellitus with diabetic polyneuropathy Status: Chronic Code(s): E11.42 - Type 2 diabetes mellitus with diabetic polyneuropathy (3) Osteomyelitis Status: Chronic Code(s): M86.9 - Osteomyelitis, unspecified Type of Wound Date of Service: 02/03/21 Chief Complaint: left heel ulcer with osteomyelitis History of Wound: This 60-year-old uncontrolled diabetic follows up today for chronic left heel wound. He was previously hospitalized for sepsis and osteomyelitis of the calcaneus. He is now residing at home and has completed a full course of IV antibiotics for medical management of osteomyelitis of his heel. He denies lower extremity pain, fever, chill, nausea, vomiting. His case is complicated with uncontrolled diabetes, calcaneus gait limb position due to prior ruptured Achilles tendon, and noncompliance. He has been continuing with wound VAC treatment and also started hyperbaric oxygen therapy. He is taking a break from HBO until next monday due to ear issues. Progress of Wound: Improving. Medial healed again - Physical Exam Vital Signs Temp Pulse Resp BP 98.1 F 98 18 165/87 H 02/03/21 08:09 02/03/21 08:09 02/03/21 08:09 02/03/21 08:09 General: Alert, Oriented x3, Cooperative, No apparent distress HEENT: Atraumatic Extremities: No cyanosis, Capillary Refill Less than 3 Seconds, No Calf Tenderness, Diminished Peripheral Pulses, Edema Skin: Ulcer/ Wound - No purulence, erythema, streaking, odor or infection Wound Measurements and Assessment WC - Nurse 1 - General Ulcer Measurement Start: 01/28/21 08:05 Freq: Status: Active Protocol: Activity Type Activity Date Activity User E-Sign Co-Sign Detail Recorded Client Recorded Date Recorded By Document 02/03/21 08:09 [email or web address] [id number] 02/03/21 08:13 DL 02/03/21 08:09 Wound Center Nurse 1 [Ulcer Assessment] #2- L MEDIAL HEEL -Current Size (cm) - Length 0.2 -Current Size (cm) - Width 0.2 -Current Size (cm) - Depth 0.3 -Total Square Cm 0.04 -Photo Taken No -Exudate Type Serosanguineous -Wound Margin Distinct, Outline Attached -Granulation Amt Small (1-33%) -Granulation Quality Orlinda -Necrosis Amt Small (1-33%) -Necrotic Tissue Type Adherent Slough -Texture (Teodora-wound Skin Appearance) Localized Edema ,Scarring -Moisture (Teodora-wound Skin Appearance Maceration ) -Color (Teodora-wound Skin Appearance) Rubor -Temperature (Teodora-wound Skin No Abnormality Appearance) (Pt Warm) -Ulcer Cleansing Wound Cleanser -Foul Odor after Cleansing No -Anesthetic Used 4% Lidocaine Solution #1- L HEEL -Current Size (cm) - Length 1.5 -Current Size (cm) - Width 2.4 -Current Size (cm) - Depth 0.5 -Total Square Cm 3.60 -Photo Taken No -Undermining/Tunneling Starts (O' 5 clock) -Undermining/Tunneling Ends (O'clock) 6 -Maximum Distance (cm) 0.8 -Circular Undermining No -Exudate Amt Medium -Exudate Type Serosanguineous -Wound Margin Thickened & Rolled Under -Granulation Amt Medium (34-66%) -Granulation Quality Red -Necrosis Amt Medium (34-66%) -Necrotic Tissue Type Adherent Slough -Structure Exposed N/A -Texture (Teodora-wound Skin Appearance) Localized Edema ,Scarring -Color (Teodora-wound Skin Appearance) Rubor -Temperature (Teodora-wound Skin No Abnormality Appearance) (Pt Warm) -Tenderness on Palpation (Teodora-wound No Skin Appearance) -Ulcer Cleansing Wound Cleanser -Foul Odor after Cleansing No -Anesthetic Used 4% Lidocaine Solution WC - Nurse 2 - General Ulcer CM Notes Start: 01/28/21 08:05 Freq: Status: Active Protocol: Activity Type Activity Date Activity User E-Sign Co-Sign Detail Recorded Client Recorded Date Recorded By Document 02/03/21 08:19 SUSANNE [id number] 02/03/21 08:29 SUSANNE 02/03/21 08:19 Wound Center Nurse 2 [Procedure/Treatment] #2- L MEDIAL HEEL -Time 08:20 -Correct Patient No -Correct Side, Site, Position No -Correct Procedure No -Procedure Performed No -Tissue Removed Subcutaneous -Post Debridement (cm) - Length 0 -Post Debridement (cm) - Width 0 -Post Debridement (cm) - Depth 0 -Total Square (Post) (cm) 0 -Area of Debridement (cm) - Length 0 -Area of Debridement (cm) - Width 0 -Total Square (Area) (cm) 0 -Wound/Ulcer Outcome Healed- Epithelialized -Bleeding Controlled with Pressure -Offloading No -Treatment Response Procedure Tolerated Well #1- L HEEL -Time 08:27 -Correct Patient Yes -Correct Side, Site, Position Yes -Correct Procedure Yes -Procedure Performed Yes -Type of Procedure Debridement -Clinical Debridement Subcutaneous -Tissue Removed Subcutaneous -Post Debridement (cm) - Length 1.6 -Post Debridement (cm) - Width 2.5 -Post Debridement (cm) - Depth 0.5 -Total Square (Post) (cm) 4.00 -Area of Debridement (cm) - Length 1.6 -Area of Debridement (cm) - Width 2.5 -Total Square (Area) (cm) 4.00 -Tunneling No -Undermining/Tunneling No -Circular Undermining No -Wound/Ulcer Outcome Not Healed -Ulcer Cleansing Rinsed/ Irrigated with Saline -Foul Odor after Cleansing No -Bioengineered Tissue Yes -Type of Bioengineered Tissue Epifix Mesh -Expiration Date 09/29/25 -Product Lot Number [id number] -Percent Used 100 -Lot number of Saline Used [id number] -Bleeding Controlled with Pressure -Offloading No -Treatment Response Procedure Tolerated Well -Debridement - Subq, 1st 20sq cm No -Apply Skin Sub - 1st 25 sq cm - Feet 1 -Epifix Mesh (per sq cm) 11 [See Physician Procedure note for Specifics] Pain Scale: 0-10 Numeric [Pain] -Is Patient Pain Free? Yes Musculoskeletal: No Tenderness to Palpation of Joints or Extremities, Muscle Wasting Neurological: - - Lack of normal epicritic sensation Psych/Mental Status: Normal Affect, Appropriate Debridement Note Post-Debridement Measurements/Treatment WC - Nurse 2 - General Ulcer CM Notes Start: 01/28/21 08:05 Freq: Status: Active Protocol: Activity Type Activity Date Activity User E-Sign Co-Sign Detail Recorded Client Recorded Date Recorded By Document 02/03/21 08:19 JF [id number] 02/03/21 08:29 JF 02/03/21 08:19 Wound Center Nurse 2 #2- L MEDIAL HEEL -Time 08:20 -Correct Patient No -Correct Side, Site, Position No -Correct Procedure No -Procedure Performed No -Tissue Removed Subcutaneous -Post Debridement (cm) - Length 0 -Post Debridement (cm) - Width 0 -Post Debridement (cm) - Depth 0 -Total Square (Post) (cm) 0 -Area of Debridement (cm) - Length 0 -Area of Debridement (cm) - Width 0 -Total Square (Area) (cm) 0 -Wound/Ulcer Outcome Healed- Epithelialized -Bleeding Controlled with Pressure -Offloading No -Treatment Response Procedure Tolerated Well #1- L HEEL -Time 08:27 -Correct Patient Yes -Correct Side, Site, Position Yes -Correct Procedure Yes -Procedure Performed Yes -Type of Procedure Debridement -Clinical Debridement Subcutaneous -Tissue Removed Subcutaneous -Post Debridement (cm) - Length 1.6 -Post Debridement (cm) - Width 2.5 -Post Debridement (cm) - Depth 0.5 -Total Square (Post) (cm) 4.00 -Area of Debridement (cm) - Length 1.6 -Area of Debridement (cm) - Width 2.5 -Total Square (Area) (cm) 4.00 -Tunneling No -Undermining/Tunneling No -Circular Undermining No -Wound/Ulcer Outcome Not Healed -Ulcer Cleansing Rinsed/ Irrigated with Saline -Foul Odor after Cleansing No -Bioengineered Tissue Yes -Type of Bioengineered Tissue Epifix Mesh -Expiration Date 09/29/25 -Product Lot Number [id number] -Percent Used 100 -Lot number of Saline Used [id number] -Bleeding Controlled with Pressure -Offloading No -Treatment Response Procedure Tolerated Well -Debridement - Subq, 1st 20sq cm No -Apply Skin Sub - 1st 25 sq cm - Feet 1 -Epifix Mesh (per sq cm) 11 Pain Scale: 0-10 Numeric Is Patient Pain Free? Yes Wound debrided: plantar heel Laterality: Left Wound Grade/Stage: grade 3 Type of Debridement: Excisional debridement Anesthesia Used: 5% Lidocaine Gel Depth: in the subcutaneous layer Percentage of wound debrided: 100 Instrument Used: #15 blade Tissue Removed: fibrous, devitalized subcutaneous, biofilm, slough Severity: Fat Layer Exposed Amount of bleeding with debridement: Mild Bleeding Controlled with: Pressure Patient tolerated procedure well Assessment/Plan Assessment: Plantar left heel ulcer with bone (valadez grade 3). Osteomyelitis treated medically with IV antibiotics. Uncontrolled diabetes with neuropathy, updated hemoglobin A1c of 8.9%. Ruptured left Achilles tendon with calcaneus gait. ambulation difficulty Plan: I reviewed and discussed his case. Excisional debridement was performed as noted in the clinical panel. Clinically his infection status has resolved and he has continued wound peripheral epithelialization. Advanced wound healing product, epifix applied today according standard protocol to optimize healingd. Additional secondary dry gauze dressing was applied. A wound VAC was ordered for when he returns home with a 125 mmHg setting. This will be kept intact for 1 week once approved and applied. Additional application of total contact cast will only be considered once he is transition off of the wound VAC in the future and if he is at a jail facility where he can follow-up appropriately. We will see how responsibilities follow-up sessions are once he returns home prior to making any decisions on this. To proceed forward with using a knee roller or modified scooter. To continue with wheelchair at this time. He was previously diagnosed with osteomyelitis with the following bone growth: Morganella morganii, Proteus, MRSA, coag negative strep, anaerobic cocci. He is on IV vancomycin and Zosyn with anticipated end date of 01-20-21. He also had a prior blood culture with lactobacillus which was considered likely a contamination. His most recent labs from between to include the following: white blood cell count 10.7, ESR 73, C-reactive protein 54.6, creatinine 1.02, GFR 79. He completed this course and will follow up with his infectious disease on an as-needed basis. Due to his osteomyelitis status I discussed the treatment option of hyperbaric oxygen therapy. He will take a break from hyperbaric oxygen therapy to recent ear issues. He had tube placement with continued he will resume sessions this upcoming Monday. This is medically necessary for limb salvage. He is at high risk for leg amputation. He will likely require long-term use of an ankle-foot orthotic due to his calcaneus style gait that is resulting from his ruptured Achilles tendon. Repair of this Achilles or arthrodesis of the ankle but only be considered if he was able to demonstrate appropriate postoperative care and remarkable improvement in lifestyle and hemoglobin A1c status. Consideration may also be given to percutaneous attempted Achilles reapproximation with a PARS type system. I recommend continuing with any nutritional supplementation available clinical mcc. His noninvasive vascular studies were reviewed with triphasic PT and DP pulses bilateral. His right NADIA is 1.12 and left 1.16. His toe brachial index is 1.12 on the right and 1.34 on the left. There is no significant segmental pressure drop and therefore no arterial occlusive lesion is suspected. I answered his questions. To return to clinic in 1 week. Note: [id number] speech recognition drying room supervisor software was used to create portions of this document. Sound-alike and misspelled words, as well as other drying room supervisor errors may be contained in the documentation.
[2021-02-03 09:31] LABS: Bedside Glucose 303 mg/dL (70-110)
[2021-02-09 08:30] LABS: Bedside Glucose 207 mg/dL (70-110)
[2021-02-09 09:20] VITALS: BP 144/75; BP 148/72; PULSE 89; PULSE 95; RESP 16; TEMP 36.8; TEMP 36.9
--- NOTE | 2021-02-09 09:32 | PCM.HBO.PN ---
History of Present Illness Date of Service: 02/09/21 Presenting Chief Complaint: left heel ulcer with osteomyelitis LIZETH BURGOS is a 60 year old currently undergoing hyperbaric oxygen therapy for Villela's grade 3 diabetic foot ulcer to the left heel with osteomyelitis. Progress: Today's hyperbaric oxygen session represents the 8th of 40 planned sessions of hyperbaric oxygen therapy. Tolerance of hyperbaric oxygen therapy: Hyperbaric oxygen therapy was administered as per the facility's protocol. Hyperbaric oxygen therapy was administered at 2 roel for 90 minutes with no air breaks. The patient tolerated hyperbaric oxygen therapy well, without complaints or complications. Upon emergence from the hyperbaric chamber, the patient's vital signs remained stable. He was discharged in good condition, See blood glucose levels documented elsewhere. He is status post eustachian tube placed bilaterally on January 13, 2021, without problems. 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 (Chronic) Osteomyelitis (Chronic) Allergies/Adverse Reactions: Allergies onion Allergy (Verified 01/26/21 13:16) Food Allergy SWELLING Home Medications: Ambulatory Orders Medication Instructions Recorded insulin glargine 100 unit/mL (3 50 unit SC QHS 30 Days #15 ml 01/26/21 mL) subcutaneous pen insulin lispro 100 unit/mL 8 unit SC TID 30 Days #7.2 ml 01/26/21 subcutaneous pen blood sugar diagnostic See Rx Instructions .ROUTE 01/28/21 .MEDSUPPLY #200 each lancets See Rx Instructions .ROUTE 02/03/21 .MEDSUPPLY #200 each pen needle, diabetic 31 gauge x See Rx Instructions .ROUTE 02/03/21 3/16 .MEDSUPPLY #100 each Paternal Family History: Family History (Last Updated 01/26/21 @ 13:22 by Tatum Bourne) Grandmother Diabetes Family History: - - His father from an industrial accident. Maternal Family History: Family History (Last Updated 01/26/21 @ 13:22 by Tatum Bourne) Grandmother Diabetes Family History: - - Denies knowledge of maternal medical history Smoking Status: Former smoker Tobacco Use: Non-smoker Physical Exam Vital Signs Temp Pulse Resp BP 98.3 F 95 16 148/72 H 02/09/21 09:20 02/09/21 09:20 02/09/21 09:20 02/09/21 09:20 General: Alert, Oriented x3, Cooperative, No apparent distress HEENT: Atraumatic, TM's Clear Lungs: Clear to auscultation, Normal air movement Cardiovascular: Regular rate, Regular Rhythm Psych/Mental Status: Normal Affect, Appropriate, Alert and oriented to time, place, person, mood and affect Assessment/Plan Active Problems (Last Updated 01/26/21 @ 13:21 by Tatum Bourne) Type 2 diabetes mellitus with diabetic polyneuropathy (Chronic) 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 Treatment Course Number Number of HBO Treatments 30 Ordered Treatment Course Number 1 Treatment # 8 Chamber # 1 Chamber Type Monoplace Treatment Plan BANDAR (Atmospheric Absolute) 2 Number of Minutes 90 Number of Air Breaks 0
[2021-02-09 11:01] LABS: Bedside Glucose 172 mg/dL (70-110)
[2021-02-10 07:58] VITALS: BP 158/78; PULSE 110; RESP 20; TEMP 36.7; BMI 28.8
--- NOTE | 2021-02-10 08:46 | PN.PCM_ITS ---
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 He was previously medically and surgically treated for osteomyelitis and completed a extended course of IV antibiotics. He is at home at this time. He denies lower extremity pain, fever, chill, nausea, vomiting. His case is complicated with uncontrolled diabetes, calcaneus gait limb position due to prior ruptured Achilles tendon, and noncompliance. He has been continuing with wound VAC treatment and also started hyperbaric oxygen therapy. He has had intermittent ear issues and hyperglycemia episodes in which she has missed 2-3 hyperbaric sessions last week. He did not take insulin for couple of days because he ran out of needles. He has now resumed his regular plan. Progress of Wound: Improving plantar heel. Medial heel healed. Eschar left dorsal second toe stable - Physical Exam Vital Signs Temp Pulse Resp BP 98.1 F 110 H 20 H 158/78 H 02/10/21 07:58 02/10/21 07:58 02/10/21 07:58 02/10/21 07:58 General: Alert, Oriented x3, Cooperative, No apparent distress Extremities: No cyanosis, Capillary Refill Less than 3 Seconds, No Calf Tenderness, Diminished Peripheral Pulses, Edema Skin: Ulcer/ Wound - No purulence, erythema, streaking, odor, infection. Peripheral epithelialization and reduce gabapentin no deep probing noted. Granular base. Minimal peripheral maceration. Full epithelialization to medial heel. Dry stable and well adhered eschar to dorsal second toe Wound Measurements and Assessment WC - Nurse 1 - General Ulcer Measurement Start: 01/28/21 08:05 Freq: Status: Active Protocol: Activity Type Activity Date Activity User E-Sign Co-Sign Detail Recorded Client Recorded Date Recorded By Document 02/10/21 07:58 DL [id number] 02/10/21 08:06 DL 02/10/21 07:58 Wound Center Nurse 1 [Ulcer Assessment] #3 L 2 toe -Current Size (cm) - Length 0.5 -Current Size (cm) - Width 0.7 -Current Size (cm) - Depth 0.1 -Total Square Cm 0.35 -Photo Taken Yes -Exudate Amt None Present -Wound Margin Thickened -Granulation Amt None Present (0 %) -Necrosis Amt Small (1-33%) -Necrotic Tissue Type Eschar -Structure Exposed N/A -Texture (Teodora-wound Skin Appearance) Scarring -Moisture (Teodora-wound Skin Appearance No Abnormality ) -Color (Teodora-wound Skin Appearance) No Abnormality -Temperature (Teodora-wound Skin No Abnormality Appearance) (Pt Warm) -Tenderness on Palpation (Teodora-wound No Skin Appearance) -Ulcer Cleansing Wound Cleanser -Foul Odor after Cleansing No -Anesthetic Used 4% Lidocaine Solution #1- L HEEL -Current Size (cm) - Length 1.5 -Current Size (cm) - Width 2.7 -Current Size (cm) - Depth 0.5 -Total Square Cm 4.05 -Photo Taken No -Exudate Amt Medium -Wound Margin Thickened & Rolled Under -Granulation Amt Medium (34-66%) -Granulation Quality Red -Necrosis Amt Medium (34-66%) -Necrotic Tissue Type Adherent Slough -Structure Exposed N/A -Texture (Teodora-wound Skin Appearance) Scarring -Moisture (Teodora-wound Skin Appearance Maceration ) -Color (Teodora-wound Skin Appearance) No Abnormality -Tenderness on Palpation (Teodora-wound No Skin Appearance) -Ulcer Cleansing Wound Cleanser -Foul Odor after Cleansing No -Anesthetic Used 4% Lidocaine Solution [Edema Assessment] -Left Calf (cm) 35.3 -Left Ankle (cm) 25 WC - Nurse 2 - General Ulcer CM Notes Start: 01/28/21 08:05 Freq: Status: Active Protocol: Activity Type Activity Date Activity User E-Sign Co-Sign Detail Recorded Client Recorded Date Recorded By Document 02/10/21 08:27 SUSANNE [id number] 02/10/21 08:30 SUSANNE 02/10/21 08:27 Wound Center Nurse 2 [Procedure/Treatment] #3 L 2 toe -Correct Patient No -Correct Side, Site, Position No #1- L HEEL -Time 08:28 -Correct Patient Yes -Correct Side, Site, Position Yes -Correct Procedure Yes -Procedure Performed Yes -Type of Procedure Debridement -Clinical Debridement Subcutaneous -Tissue Removed Subcutaneous -Post Debridement (cm) - Length 1.5 -Post Debridement (cm) - Width 2.8 -Post Debridement (cm) - Depth 0.5 -Total Square (Post) (cm) 4.20 -Area of Debridement (cm) - Length 1.5 -Area of Debridement (cm) - Width 2.8 -Total Square (Area) (cm) 4.20 -Tunneling No -Undermining/Tunneling No -Circular Undermining No -Wound/Ulcer Outcome Not Healed -Ulcer Cleansing Rinsed/ Irrigated with Saline -Foul Odor after Cleansing No -Bioengineered Tissue Yes -Type of Bioengineered Tissue Epifix Mesh -Expiration Date 09/29/25 -Product Lot Number [id number] -Percent Used 100 -Lot number of Saline Used [id number] -Bleeding Controlled with Pressure -Offloading Yes -Type of Offloading Knee Walker -Treatment Response Procedure Tolerated Well -Debridement - Subq, 1st 20sq cm No -Apply Skin Sub - 1st 25 sq cm - Feet 1 -Epifix Mesh (per sq cm) 11 [See Physician Procedure note for Specifics] Pain Scale: 0-10 Numeric [Pain] -Is Patient Pain Free? Yes - Nurse 3 - General Ulcer D/C NN Start: 01/28/21 08:05 Freq: Status: Active Protocol: Activity Type Activity Date Activity User E-Sign Co-Sign Detail Recorded Client Recorded Date Recorded By Document 02/10/21 08:30 SUSANNE [id number] 02/10/21 08:30 SUSANNE 02/10/21 08:30 Wound Care Nurse 3 [Wound Dressing] #1- L HEEL -Ulcer Cleansing Rinsed/ Irrigated with Saline -Foul Odor after Cleansing No -Primary Dressing Covered/Secured Dry Gauze & with Roll Gauze, Secured with Tape Pain Scale: 0-10 Numeric [Pain] -Is Patient Pain Free? Yes - Visit Discharge [Visit Discharge Information] -Discharge Condition Stable -Ambulatory Status Wheelchair -Transportation Private Auto -Medication Reconcilliation completed Yes & provided to patient/care provider -Clinical Summary of Care Provided Yes Musculoskeletal: No Tenderness to Palpation of Joints or Extremities, Muscle Wasting, - - Calcaneus gait consistent with prior Achilles rupture Neurological: - - Lack of normal epicritic sensation is consistent with neuropathic status Psych/Mental Status: Normal Affect, Appropriate Debridement Note Post-Debridement Measurements/Treatment WC - Nurse 2 - General Ulcer CM Notes Start: 01/28/21 08:05 Freq: Status: Active Protocol: Activity Type Activity Date Activity User E-Sign Co-Sign Detail Recorded Client Recorded Date Recorded By Document 02/03/21 08:19 SUSANNE [id number] 02/03/21 08:29 Document 02/10/21 08:27 [id number] 02/10/21 08:30 02/03/21 02/10/21 08:19 08:27 Wound Center Nurse 2 #3 L 2 toe -Correct Patient No -Correct Side, Site, Position No #2- L MEDIAL HEEL -Time 08:20 -Correct Patient No -Correct Side, Site, Position No -Correct Procedure No -Procedure Performed No -Tissue Removed Subcutaneous -Post Debridement (cm) - Length 0 -Post Debridement (cm) - Width 0 -Post Debridement (cm) - Depth 0 -Total Square (Post) (cm) 0 -Area of Debridement (cm) - Length 0 -Area of Debridement (cm) - Width 0 -Total Square (Area) (cm) 0 -Wound/Ulcer Outcome Healed- Epithelialized -Bleeding Controlled with Pressure -Offloading No -Treatment Response Procedure Tolerated Well #1- L HEEL -Time 08:27 08:28 -Correct Patient Yes Yes -Correct Side, Site, Position Yes Yes -Correct Procedure Yes Yes -Procedure Performed Yes Yes -Type of Procedure Debridement Debridement -Clinical Debridement Subcutaneous Subcutaneous -Tissue Removed Subcutaneous Subcutaneous -Post Debridement (cm) - Length 1.6 1.5 -Post Debridement (cm) - Width 2.5 2.8 -Post Debridement (cm) - Depth 0.5 0.5 -Total Square (Post) (cm) 4.00 4.20 -Area of Debridement (cm) - Length 1.6 1.5 -Area of Debridement (cm) - Width 2.5 2.8 -Total Square (Area) (cm) 4.00 4.20 -Tunneling No No -Undermining/Tunneling No No -Circular Undermining No No -Wound/Ulcer Outcome Not Healed Not Healed -Ulcer Cleansing Rinsed/ Rinsed/ Irrigated with Irrigated with Saline Saline -Foul Odor after Cleansing No No -Bioengineered Tissue Yes Yes -Type of Bioengineered Tissue Epifix Mesh Epifix Mesh -Expiration Date 09/29/25 09/29/25 -Product Lot Number [id number] -Percent Used 100 100 -Lot number of Saline Used [id number] -Bleeding Controlled with Pressure Pressure -Offloading No Yes -Type of Offloading Knee Walker -Treatment Response Procedure Procedure Tolerated Well Tolerated Well -Debridement - Subq, 1st 20sq cm No No -Apply Skin Sub - 1st 25 sq cm - Feet 1 1 -Epifix Mesh (per sq cm) 11 11 Pain Scale: 0-10 Numeric Is Patient Pain Free? Yes Yes - Nurse 3 - General Ulcer D/C NN Start: 01/28/21 08:05 Freq: Status: Active Protocol: Activity Type Activity Date Activity User E-Sign Co-Sign Detail Recorded Client Recorded Date Recorded By Document 02/03/21 08:46 DL [id number] 02/03/21 08:48 DL Document 02/10/21 08:30 [id number] 02/10/21 08:30 02/03/21 02/10/21 08:46 08:30 Wound Care Nurse 3 #1- L HEEL -Ulcer Cleansing Rinsed/ Irrigated with Saline -Foul Odor after Cleansing No No -Negative Pressure Wound Therapy Continue -Setting (mmHg) 125 -Negative Pressure is Continuous -Primary Dressing Covered/Secured with Dry Gauze & Roll Gauze, Secured with Tape -NPWT Application Charge ($) NPWT </= 50 sq cm Left -Size D ($) 1 Treatment Response Procedure Tolerated Well Pain Scale: 0-10 Numeric Is Patient Pain Free? Yes Yes - Visit Discharge Discharge Condition Stable Stable Ambulatory Status Ambulatory Wheelchair Transportation Private Auto Private Auto Medication Reconcilliation completed & Yes provided to patient/care provider Clinical Summary of Care Provided Yes Wound debrided: plantar heel Laterality: Left Wound Grade/Stage: grade 3 Type of Debridement: Excisional debridement Anesthesia Used: 5% Lidocaine Gel Depth: in the subcutaneous layer Percentage of wound debrided: 100 Instrument Used: #15 blade Tissue Removed: fibrous, devitalized subcutaneous, biofilm, slough Severity: Fat Layer Exposed Amount of bleeding with debridement: Mild Bleeding Controlled with: Pressure Patient tolerated procedure well Assessment/Plan Active Problems (Last Updated 01/26/21 @ 13:21 by Tatum Bourne) Type 2 diabetes mellitus with diabetic polyneuropathy (Chronic) 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 Osteomyelitis treated medically with IV antibiotics. Uncontrolled diabetes with neuropathy, updated hemoglobin A1c of 8.9%. Ruptured left Achilles tendon with calcaneus gait. ambulation difficulty. dry dorsal 2 toe ulcer Plan: I reviewed and discussed his case. Excisional debridement was performed as noted in the clinical panel. Clinically his infection status has resolved and he has continued wound peripheral epithelialization. Advanced wound healing product, epifix applied today according standard protocol to optimize healing. Additional secondary dry gauze dressing was applied. A wound VAC will be applied after he completes HBO today with a 125 mmHg setting. This will be kept intact for 1 week. To proceed forward with using a knee roller or modified scooter. To continue with wheelchair at this time. He was previously diagnosed with osteomyelitis with the following bone growth: Morganella morganii, Proteus, MRSA, coag negative strep, anaerobic cocci. He already completed a course of IV vancomycin and Zosyn with anticipated end date of 01-20-21. He also had a prior blood culture with lactobacillus which was considered likely a contamination. His most recent labs from between to include the following: white blood cell count 10.7, ESR 73, C-reactive protein 54.6, creatinine 1.02, GFR 79. He completed this course and will follow up with his infectious disease on an as-needed basis. Due to his osteomyelitis status I discussed the treatment option of hyperbaric oxygen therapy. He had ear tube placement and has had intermittent hyperglycemia causing him to miss Several sessions this past week. He has resumed regular insulin intake now that he has needles and plans to maintain a consistent schedule this week. This is medically necessary for limb salvage. He is at high risk for leg amputation. He will likely require long-term use of an ankle-foot orthotic due to his calcaneus style gait that is resulting from his ruptured Achilles tendon. Repair of this Achilles or arthrodesis of the ankle but only be considered if he was able to demonstrate appropriate postoperative care and remarkable improvement in lifestyle and hemoglobin A1c status. Consideration may also be given to percutaneous attempted Achilles reapproximation with a PARS type system. I recommend continuing with any nutritional supplementation available clinical chcf. His noninvasive vascular studies were reviewed with triphasic PT and DP pulses bilateral. His right NADIA is 1.12 and left 1.16. His toe brachial index is 1.12 on the right and 1.34 on the left. There is no significant segmental pressure drop and therefore no arterial occlusive lesion is suspected. I answered his questions. To return to clinic in 1 week. Note: [employer] speech recognition transcription typist software was used to create portions of this document. Sound-alike and misspelled words, as well as other transcription typist errors may be contained in the documentation.
[2021-02-10 08:50] LABS: Bedside Glucose 168 mg/dL (70-110)
[2021-02-10 09:35] VITALS: BP 137/74; BP 158/78; PULSE 110; PULSE 95; RESP 16; TEMP 36.7; TEMP 36.8
[2021-02-10 11:00] LABS: Bedside Glucose 204 mg/dL (70-110)
--- NOTE | 2021-02-10 11:52 | PCM.HBO.PN ---
History of Present Illness Date of Service: 02/10/21 Presenting Chief Complaint: left heel ulcer with osteomyelitis LIZETH BURGOS is a 60 year old currently undergoing hyperbaric oxygen therapy for Villela's grade 3 diabetic foot ulcer to the left heel with osteomyelitis. Progress: Today's hyperbaric oxygen session represents the 9th of 40 planned sessions of hyperbaric oxygen therapy. Tolerance of hyperbaric oxygen therapy: Hyperbaric oxygen therapy was administered as per the facility's protocol. Hyperbaric oxygen therapy was administered at 2 roel for 90 minutes with no air breaks. The patient tolerated hyperbaric oxygen therapy well, without complaints or complications. Upon emergence from the hyperbaric chamber, the patient's vital signs remained stable. He was discharged in good condition, See blood glucose levels documented elsewhere. He is status post eustachian tube placed bilaterally on January 13, 2021, without problems. 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 (Chronic) Osteomyelitis (Chronic) Allergies/Adverse Reactions: Allergies onion Allergy (Verified 01/26/21 13:16) Food Allergy SWELLING Home Medications: Ambulatory Orders Medication Instructions Recorded insulin glargine 100 unit/mL (3 50 unit SC QHS 30 Days #15 ml 01/26/21 mL) subcutaneous pen insulin lispro 100 unit/mL 8 unit SC TID 30 Days #7.2 ml 01/26/21 subcutaneous pen blood sugar diagnostic See Rx Instructions .ROUTE 01/28/21 .MEDSUPPLY #200 each lancets See Rx Instructions .ROUTE 02/03/21 .MEDSUPPLY #200 each pen needle, diabetic 31 gauge x See Rx Instructions .ROUTE 02/03/21 3/16 .MEDSUPPLY #100 each Paternal Family History: Family History (Last Updated 01/26/21 @ 13:22 by Tatum Bourne) Grandmother Diabetes Family History: - - His father from an industrial accident. 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 Treatment Course Number Number of HBO Treatments 30 Ordered Treatment Course Number 1 Treatment # 9 Chamber # 1 Chamber Type Monoplace Treatment Plan BANDAR (Atmospheric Absolute) 2 Number of Minutes 90 Number of Air Breaks 0
[2021-02-11 07:46] LABS: Bedside Glucose 169 mg/dL (70-110)
[2021-02-11 08:21] VITALS: BP 123/69; BP 137/86; PULSE 103; PULSE 98; RESP 16; TEMP 36.6; TEMP 36.7
--- NOTE | 2021-02-11 08:22 | PCM.HBO.PN ---
History of Present Illness Date of Service: 02/11/21 Presenting Chief Complaint: left heel ulcer with osteomyelitis LIZETH BURGOS is a 60 year old currently undergoing hyperbaric oxygen therapy for Villela's grade 3 diabetic foot ulcer to the left heel with osteomyelitis. Progress: Today's hyperbaric oxygen session represents the 10th of 40 planned sessions of hyperbaric oxygen therapy. Tolerance of hyperbaric oxygen therapy: Hyperbaric oxygen therapy was administered as per the facility's protocol. Hyperbaric oxygen therapy was administered at 2 roel for 90 minutes with no air breaks. The patient tolerated hyperbaric oxygen therapy well, without complaints or complications. Upon emergence from the hyperbaric chamber, the patient's vital signs remained stable. He was discharged in good condition, See blood glucose levels documented elsewhere. He is status post eustachian tube placed bilaterally on January 13, 2021, without problems. 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 (Chronic) Osteomyelitis (Chronic) Allergies/Adverse Reactions: Allergies onion Allergy (Verified 01/26/21 13:16) Food Allergy SWELLING Home Medications: Ambulatory Orders Medication Instructions Recorded insulin glargine 100 unit/mL (3 50 unit SC QHS 30 Days #15 ml 01/26/21 mL) subcutaneous pen insulin lispro 100 unit/mL 8 unit SC TID 30 Days #7.2 ml 01/26/21 subcutaneous pen blood sugar diagnostic See Rx Instructions .ROUTE 01/28/21 .MEDSUPPLY #200 each lancets See Rx Instructions .ROUTE 02/03/21 .MEDSUPPLY #200 each pen needle, diabetic 31 gauge x See Rx Instructions .ROUTE 02/03/21 3/16 .MEDSUPPLY #100 each Paternal Family History: Family History (Last Updated 01/26/21 @ 13:22 by Tatum Bourne) Grandmother Diabetes Family History: - - His father from an industrial accident. Maternal Family History: Family History (Last Updated 01/26/21 @ 13:22 by Tatum Bourne) Grandmother Diabetes Family History: - - Denies knowledge of maternal medical history Smoking Status: Former smoker Tobacco Use: Non-smoker Physical Exam Vital Signs Temp Pulse Resp BP 98.1 F 110 H 16 158/78 H 02/10/21 09:35 02/10/21 09:35 02/10/21 09:35 02/10/21 09:35 General: Alert, Oriented x3, Cooperative, No apparent distress HEENT: Atraumatic, TM's Clear - Removed a moderate amount of soft cerumen from the left ear canal so that the tympanic membrane was visible Lungs: Clear to auscultation, Normal air movement Cardiovascular: Regular rate, Regular Rhythm Psych/Mental Status: Normal Affect, Appropriate, Alert and oriented to time, place, person, mood and affect Assessment/Plan Active Problems (Last Updated 01/26/21 @ 13:21 by Tatum Bourne) Type 2 diabetes mellitus with diabetic polyneuropathy (Chronic) 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 Treatment Course Number Number of HBO Treatments 30 Ordered Treatment Course Number 1 Treatment # 10 Chamber # 1 Chamber Type Monoplace Treatment Plan BANDAR (Atmospheric Absolute) 2 Number of Minutes 90 Number of Air Breaks 0
[2021-02-11 10:06] LABS: Bedside Glucose 295 mg/dL (70-110)
[2021-02-12 07:45] LABS: Bedside Glucose 149 mg/dL (70-110)
[2021-02-12 08:43] VITALS: BP 125/69; BP 129/65; PULSE 106; PULSE 98; RESP 16; RESP 6; TEMP 36.3; TEMP 36.7
[2021-02-12 10:16] LABS: Bedside Glucose 253 mg/dL (70-110)
--- NOTE | 2021-02-12 14:20 | PCM.HBO.PN ---
History of Present Illness Date of Service: 02/12/21 Presenting Chief Complaint: left heel ulcer with osteomyelitis LIZETH BURGOS is a 60 year old currently undergoing hyperbaric oxygen therapy for Villela's grade 3 diabetic foot ulcer to the left heel with osteomyelitis. Progress: Today's hyperbaric oxygen session represents the 11th of 40 planned sessions of hyperbaric oxygen therapy. Tolerance of hyperbaric oxygen therapy: Hyperbaric oxygen therapy was administered as per the facility's protocol. Hyperbaric oxygen therapy was administered at 2 roel for 90 minutes with no air breaks. The patient tolerated hyperbaric oxygen therapy well, without complaints or complications. Upon emergence from the hyperbaric chamber, the patient's vital signs remained stable. He was discharged in good condition, See blood glucose levels documented elsewhere. He is status post eustachian tube placed bilaterally on January 13, 2021, without problems. 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 (Chronic) Osteomyelitis (Chronic) Allergies/Adverse Reactions: Allergies onion Allergy (Verified 01/26/21 13:16) Food Allergy SWELLING Home Medications: Ambulatory Orders Medication Instructions Recorded insulin glargine 100 unit/mL (3 50 unit SC QHS 30 Days #15 ml 01/26/21 mL) subcutaneous pen insulin lispro 100 unit/mL 8 unit SC TID 30 Days #7.2 ml 01/26/21 subcutaneous pen blood sugar diagnostic See Rx Instructions .ROUTE 01/28/21 .MEDSUPPLY #200 each lancets See Rx Instructions .ROUTE 02/03/21 .MEDSUPPLY #200 each pen needle, diabetic 31 gauge x See Rx Instructions .ROUTE 02/03/21 3/ .MEDSUPPLY #100 each Paternal Family History: Family History (Last Updated 01/26/21 @ 13:22 by Tatum Bourne) Grandmother Diabetes Family History: - - His father from an industrial accident. Maternal Family History: Family History (Last Updated 01/26/21 @ 13:22 by Tatum Bourne) Grandmother Diabetes Family History: - - Denies knowledge of maternal medical history Smoking Status: Former smoker Tobacco Use: Non-smoker Physical Exam Vital Signs Temp Pulse Resp BP 97.3 F L 106 H 6 L 129/65 H 02/12/21 08:43 02/12/21 08:43 02/12/21 08:43 02/12/21 08:43 General: Alert, Oriented x3, Cooperative, No apparent distress HEENT: EAC Clear Psych/Mental Status: Normal Affect, Appropriate Assessment/Plan Active Problems (Last Updated 01/26/21 @ 13:21 by Tatum Bourne) Type 2 diabetes mellitus with diabetic polyneuropathy (Chronic) 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 Treatment Course Number Number of HBO Treatments 30 Ordered Treatment Course Number 1 Treatment # 11 Chamber # 1 Chamber Type Monoplace Treatment Plan BANDAR (Atmospheric Absolute) 2 Number of Minutes 90 Number of Air Breaks 0
[2021-02-16 08:21] LABS: Bedside Glucose 114 mg/dL (70-110)
[2021-02-16 08:21] LABS: Bedside Glucose 118 mg/dL (70-110)
[2021-02-16 08:26] LABS: Bedside Glucose 131 mg/dL (70-110)
[2021-02-16 08:45] VITALS: BP 132/69; BP 142/74; PULSE 105; PULSE 93; RESP 16; RESP 18; TEMP 36.2; TEMP 36.3
[2021-02-16 10:26] LABS: Bedside Glucose 162 mg/dL (70-110)
--- NOTE | 2021-02-16 10:59 | HBO.PN.PCM_ITS ---
History of Present Illness Date of Service: 02/16/21 Presenting Chief Complaint: Diabetic, left heel ulcer with osteomyelitis LIZETH BURGOS is a 60 year old currently undergoing hyperbaric oxygen therapy for Villela's grade 3 diabetic foot ulcer to the left heel with osteomyelitis. Progress: Today's hyperbaric oxygen session represents the 12th of 40 planned sessions of hyperbaric oxygen therapy. Tolerance of hyperbaric oxygen therapy: Hyperbaric oxygen therapy was administered as per the facility's protocol. Hyperbaric oxygen therapy was administered at 2 roel for 90 minutes with no air breaks. The patient tolerated hyperbaric oxygen therapy well, without complaints or complications. Upon galina rgence from the hyperbaric chamber, the patient's vital signs remained stable. He was discharged in good condition, See blood glucose levels documented elsewhere. He is status post eustachian tube placed bilaterally on January 13, 2021, without problems. He has had a small amount of blood in the right ear canal today and in previous days recently, of which ENT is aware. 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 (Chronic) Osteomyelitis (Chronic) Allergies/Adverse Reactions: Allergies onion Allergy (Verified 01/26/21 13:16) Food Allergy SWELLING Home Medications: Ambulatory Orders Medication Instructions Recorded insulin glargine 100 unit/mL (3 50 unit SC QHS 30 Days #15 ml 01/26/21 mL) subcutaneous pen insulin lispro 100 unit/mL 8 unit SC TID 30 Days #7.2 ml 01/26/21 subcutaneous pen blood sugar diagnostic See Rx Instructions .ROUTE 01/28/21 .MEDSUPPLY #200 each lancets See Rx Instructions .ROUTE 02/03/21 .MEDSUPPLY #200 each pen needle, diabetic 31 gauge x See Rx Instructions .ROUTE 02/03/21 3/16 .MEDSUPPLY #100 each Paternal Family History: Family History (Last Updated 01/26/21 @ 13:22 by Tatum Bourne) Grandmother Diabetes Family History: - - His father from an industrial accident. Maternal Family History: Family History (Last Updated 01/26/21 @ 13:22 by Tatum Bourne) Grandmother Diabetes Family History: - - Denies knowledge of maternal medical history Smoking Status: Former smoker Tobacco Use: Non-smoker Physical Exam Vital Signs Temp Pulse Resp BP 97.4 F L 105 H 16 142/74 H 02/16/21 08:45 02/16/21 08:45 02/16/21 08:45 02/16/21 08:45 General: Alert, Oriented x3, Cooperative, No apparent distress, Well developed, Well nourished HEENT: Atraumatic, PERRLA, EOMI, Normocephalic Lungs: Normal air movement Psych/Mental Status: Normal Affect, Appropriate, Alert and oriented to time, place, person, mood and affect Assessment/Plan Active Problems (Last Updated 01/26/21 @ 13:21 by Tatum Bourne) 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 Treatment Course Number Number of HBO Treatments 30 Ordered Treatment Course Number 1 Treatment # 12 Chamber # 1 Chamber Type Monoplace Treatment Plan BANDAR (Atmospheric Absolute) 2 Number of Minutes 90 Number of Air Breaks 0
[2021-02-17 08:17] VITALS: BP 147/70; PULSE 102; RESP 18; TEMP 36.6; BMI 28.8
[2021-02-17 09:01] LABS: Bedside Glucose 131 mg/dL (70-110)
[2021-02-17 09:33] VITALS: BP 118/66; BP 147/70; PULSE 102; PULSE 92; RESP 16; RESP 18; TEMP 36.1; TEMP 36.2
--- NOTE | 2021-02-17 09:46 | PCM.WC.PN ---
(1) Maceration of periwound skin Status: Acute Code(s): R23.9 - Unspecified skin changes (2) 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 Status: Chronic Code(s): L97.523 - Non-pressure 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 (3) Type 2 diabetes mellitus with diabetic polyneuropathy Status: Chronic Code(s): E11.42 - Type 2 diabetes mellitus with diabetic polyneuropathy (4) Osteomyelitis Status: Chronic Code(s): M86.9 - Osteomyelitis, unspecified Type of Wound Date of Service: 02/17/21 Chief Complaint: Diabetic, left heel ulcer with osteomyelitis History of Wound: This 60-year-old uncontrolled diabetic follows up today for chronic left heel wound. He was previously medically and surgically treated for osteomyelitis and completed a extended course of IV antibiotics. He is at home at this time. He denies lower extremity pain, fever, chill, nausea, vomiting. His case is complicated with uncontrolled diabetes, calcaneus gait limb position due to prior ruptured Achilles tendon, and noncompliance. He has been continuing with wound VAC treatment and also started hyperbaric oxygen therapy. He has had intermittent ear issues and hyperglycemia episodes. Progress of Wound: Improving plantar heel - Physical Exam Vital Signs Temp Pulse Resp BP 97.2 F L 102 H 18 147/70 H 02/17/21 09:33 02/17/21 09:33 02/17/21 09:33 02/17/21 09:33 General: Alert, Oriented x3, Cooperative, No apparent distress HEENT: Atraumatic Extremities: No cyanosis, Capillary Refill Less than 3 Seconds, No Calf Tenderness, Diminished Peripheral Pulses, Edema, - Skin: Ulcer/ Wound - No purulence, erythema, streaking, odor, infection, - - Macerated skin noted with mild odor consistent with excessive tissue moisture. No purulence Wound Measurements and Assessment WC - Nurse 1 - General Ulcer Measurement Start: 01/28/21 08:05 Freq: Status: Active Protocol: Activity Type Activity Date Activity User E-Sign Co-Sign Detail Recorded Client Recorded Date Recorded By Document 02/17/21 08:17 RB [id number] 02/17/21 08:19 RB 02/17/21 08:17 Wound Center Nurse 1 [Ulcer Assessment] #1- L HEEL -Combined with other wound No -Current Size (cm) - Length 1.5 -Current Size (cm) - Width 3.2 -Current Size (cm) - Depth 0.4 -Total Square Cm 4.80 -Photo Taken No -Tunneling No -Undermining/Tunneling Yes -Undermining/Tunneling Starts (O' 3 clock) -Undermining/Tunneling Ends (O'clock) 8 -Maximum Distance (cm) 0.3 -Circular Undermining No -Exudate Amt Large -Exudate Type Serosanguineous -Wound Margin Thickened & Rolled Under -Granulation Amt Medium (34-66%) -Granulation Quality [place] -Slough/Fibrin Yes -Necrosis Amt Small (1-33%) -Necrotic Tissue Type Adherent Slough -Structure Exposed N/A -Texture (Teodora-wound Skin Appearance) Assessed -Moisture (Teodora-wound Skin Appearance Maceration ) -Color (Teodora-wound Skin Appearance) Assessed -Temperature (Teodora-wound Skin No Abnormality Appearance) (Pt Warm) -Tenderness on Palpation (Teodora-wound No Skin Appearance) -Ulcer Cleansing Wound Cleanser -Foul Odor after Cleansing No -Anesthetic Used 4% Lidocaine Solution WC - Nurse 2 - General Ulcer CM Notes Start: 01/28/21 08:05 Freq: Status: Active Protocol: Activity Type Activity Date Activity User E-Sign Co-Sign Detail Recorded Client Recorded Date Recorded By Document 02/17/21 08:27 SUSANNE [id number] 02/17/21 08:32 SUSANNE 02/17/21 08:27 Wound Center Nurse 2 [Procedure/Treatment] -Time 08:28 -Correct Patient Yes -Correct Side, Site, Position Yes -Correct Procedure Yes -Procedure Performed Yes -Type of Procedure Debridement -Clinical Debridement Subcutaneous -Tissue Removed Subcutaneous -Post Debridement (cm) - Length 1.5 -Post Debridement (cm) - Width 3.5 -Post Debridement (cm) - Depth 0.4 -Total Square (Post) (cm) 5.25 -Area of Debridement (cm) - Length 1.5 -Area of Debridement (cm) - Width 3.5 -Total Square (Area) (cm) 5.25 -Tunneling No -Undermining/Tunneling No -Circular Undermining No -Wound/Ulcer Outcome Not Healed -Ulcer Cleansing Rinsed/ Irrigated with Saline -Foul Odor after Cleansing No -Bioengineered Tissue No -Bleeding Controlled with Pressure -Offloading Yes -Type of Offloading Surgical Shoe -Treatment Response Procedure Tolerated Well -Debridement - Subq, 1st 20sq cm Yes [See Physician Procedure note for Specifics] Pain Scale: 0-10 Numeric [Pain] -Is Patient Pain Free? Yes Musculoskeletal: No Tenderness to Palpation of Joints or Extremities, Muscle Wasting, - - calcaneus hindfoot position Neurological: - - lack of normal epicritic sensation via light touch Psych/Mental Status: Normal Affect, Appropriate Debridement Note Post-Debridement Measurements/Treatment WC - Nurse 2 - General Ulcer CM Notes Start: 01/28/21 08:05 Freq: Status: Active Protocol: Activity Type Activity Date Activity User E-Sign Co-Sign Detail Recorded Client Recorded Date Recorded By Document 02/03/21 08:19 SUSANNE [id number] 02/03/21 08:29 JF Document 02/10/21 08:27 [id number] 02/10/21 08:30 Document 02/17/21 08:27 [id number] 02/17/21 08:32 02/03/21 02/10/21 02/17/21 08:19 08:27 08:27 Wound Center Nurse 2 #3 L 2 toe -Correct Patient No -Correct Side, Site, Position No #2- L MEDIAL HEEL -Time 08:20 -Correct Patient No -Correct Side, Site, Position No -Correct Procedure No -Procedure Performed No -Tissue Removed Subcutaneous -Post Debridement (cm) - Length 0 -Post Debridement (cm) - Width 0 -Post Debridement (cm) - Depth 0 -Total Square (Post) (cm) 0 -Area of Debridement (cm) - Length 0 -Area of Debridement (cm) - Width 0 -Total Square (Area) (cm) 0 -Wound/Ulcer Outcome Healed- Epithelialized -Bleeding Controlled with Pressure -Offloading No -Treatment Response Procedure Tolerated Well #1- L HEEL -Time 08:27 08:28 08:28 -Correct Patient Yes Yes Yes -Correct Side, Site, Position Yes Yes Yes -Correct Procedure Yes Yes Yes -Procedure Performed Yes Yes Yes -Type of Procedure Debridement Debridement Debridement -Clinical Debridement Subcutaneous Subcutaneous Subcutaneous -Tissue Removed Subcutaneous Subcutaneous Subcutaneous -Post Debridement (cm) - Length 1.6 1.5 1.5 -Post Debridement (cm) - Width 2.5 2.8 3.5 -Post Debridement (cm) - Depth 0.5 0.5 0.4 -Total Square (Post) (cm) 4.00 4.20 5.25 -Area of Debridement (cm) - Length 1.6 1.5 1.5 -Area of Debridement (cm) - Width 2.5 2.8 3.5 -Total Square (Area) (cm) 4.00 4.20 5.25 -Tunneling No No No -Undermining/Tunneling No No No -Circular Undermining No No No -Wound/Ulcer Outcome Not Healed Not Healed Not Healed -Ulcer Cleansing Rinsed/ Rinsed/ Rinsed/ Irrigated with Irrigated with Irrigated with Saline Saline Saline -Foul Odor after Cleansing No No No -Bioengineered Tissue Yes Yes No -Type of Bioengineered Tissue Epifix Mesh Epifix Mesh -Expiration Date 09/29/25 09/29/25 -Product Lot Number [id number] -Percent Used 100 100 -Lot number of Saline Used [id number] -Bleeding Controlled with Pressure Pressure Pressure -Offloading No Yes Yes -Type of Offloading Knee Walker Surgical Shoe -Treatment Response Procedure Procedure Procedure Tolerated Well Tolerated Well Tolerated Well -Debridement - Subq, 1st 20sq cm No No Yes -Apply Skin Sub - 1st 25 sq cm - Feet 1 1 -Epifix Mesh (per sq cm) 11 11 Pain Scale: 0-10 Numeric Is Patient Pain Free? Yes Yes Yes - Nurse 3 - General Ulcer D/C NN Start: 01/28/21 08:05 Freq: Status: Active Protocol: Activity Type Activity Date Activity User E-Sign Co-Sign Detail Recorded Client Recorded Date Recorded By Document 02/03/21 08:46 DL [id number] 02/03/21 08:48 DL Document 02/10/21 08:30 SUSANNE [id number] 02/10/21 08:30 JF 02/03/21 02/10/21 08:46 08:30 Wound Care Nurse 3 #1- L HEEL -Ulcer Cleansing Rinsed/ Irrigated with Saline -Foul Odor after Cleansing No No -Negative Pressure Wound Therapy Continue Continue -Setting (mmHg) 125 150 -Negative Pressure is Continuous Continuous -Primary Dressing Covered/Secured with Dry Gauze & Roll Gauze, Secured with Tape -NPWT Application Charge ($) NPWT </= 50 sq NPWT </= 50 sq cm cm Left -Size D ($) 1 Treatment Response Procedure Tolerated Well Pain Scale: 0-10 Numeric Is Patient Pain Free? Yes Yes WC - Visit Discharge Discharge Condition Stable Stable Ambulatory Status Ambulatory Wheelchair Transportation Private Auto Private Auto Medication Reconcilliation completed & Yes provided to patient/care provider Clinical Summary of Care Provided Yes Wound debrided: plantar heel Laterality: Left Wound Grade/Stage: grade 3 Type of Debridement: Excisional debridement Anesthesia Used: 5% Lidocaine Gel Depth: in the subcutaneous layer Percentage of wound debrided: 100 Instrument Used: #15 blade Tissue Removed: fibrous, devitalized subcutaneous, biofilm, slough, maceration Severity: Fat Layer Exposed Amount of bleeding with debridement: Mild Bleeding Controlled with: Pressure Patient tolerated procedure well Assessment/Plan Active Problems (Last Updated 01/26/21 @ 13:21 by Tatum Bourne) Type 2 diabetes mellitus with diabetic polyneuropathy (Chronic) Maceration of periwound skin (Acute) 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 Osteomyelitis treated medically with IV antibiotics. Maceration. Uncontrolled diabetes with neuropathy, updated hemoglobin A1c of 8.9%. Ruptured left Achilles tendon with calcaneus gait. ambulation difficulty. dry dorsal 2 toe ulcer Plan: I reviewed and discussed his case. Excisional debridement was performed as noted in the clinical panel. Clinically his infection status has resolved and he has continued wound peripheral epithelialization. I recommend changing his dressing with Dakin wet-to-dry for the next week to resolve some maceration and improve the health of the wound base. Advanced wound healing product, epifix will be considered for application next week. Wound VAC is placed on hold this week. To proceed forward with using a knee roller or modified scooter. To continue with wheelchair at this time. He was previously diagnosed with osteomyelitis with the following bone growth: Morganella morganii, Proteus, MRSA, coag negative strep, anaerobic cocci. He already completed a course of IV vancomycin and Zosyn with anticipated end date of 01-20-21. He also had a prior blood culture with lactobacillus which was considered likely a contamination. His most recent labs from between to include the following: white blood cell count 10.7, ESR 73, C-reactive protein 54.6, creatinine 1.02, GFR 79. He completed this course and will follow up with his infectious disease on an as-needed basis. Due to his osteomyelitis status I discussed the treatment option of hyperbaric oxygen therapy. He had ear tube placement and has had intermittent hyperglycemia causing him to miss Several sessions this past week. He has resumed regular insulin intake now that he has needles and plans to maintain a consistent schedule this week. This is medically necessary for limb salvage. He is at high risk for leg amputation. He will likely require long-term use of an ankle-foot orthotic due to his calcaneus style gait that is resulting from his ruptured Achilles tendon. Repair of this Achilles or arthrodesis of the ankle but only be considered if he was able to demonstrate appropriate postoperative care and remarkable improvement in lifestyle and hemoglobin A1c status. Consideration may also be given to percutaneous attempted Achilles reapproximation with a PARS type system. I recommend continuing with any nutritional supplementation available clinical senior care. His noninvasive vascular studies were reviewed with triphasic PT and DP pulses bilateral. His right NADIA is 1.12 and left 1.16. His toe brachial index is 1.12 on the right and 1.34 on the left. There is no significant segmental pressure drop and therefore no arterial occlusive lesion is suspected. I answered his questions. To return to clinic in 1 week. Note: Chalkable speech recognition aircraft part assembler software was used to create portions of this document. Sound-alike and misspelled words, as well as other aircraft part assembler errors may be contained in the documentation. 11 minutes was spent on this encounter. This included face to face and non face to face care including preparing for the visit, reviewing the history, performing the exam, counseling and providing education to the patient, family, or caregiver, ordering medications/test/ procedures if indicated as documented, communicating with other healthcare providers, documenting information in the medical record, interpreting / sharing this information when indicated as documented, and care coordination.
[2021-02-17 11:16] LABS: Bedside Glucose 213 mg/dL (70-110)
--- NOTE | 2021-02-17 12:25 | HBO.PN.PCM_ITS ---
History of Present Illness Date of Service: 02/17/21 Presenting Chief Complaint: Diabetic, left heel ulcer with osteomyelitis LIZETH BURGOS is a 60 year old currently undergoing hyperbaric oxygen therapy for Villela's grade 3 diabetic foot ulcer to the left heel with osteomyelitis. Progress: Today's hyperbaric oxygen session represents the 13th of 40 planned sessions of hyperbaric oxygen therapy. Tolerance of hyperbaric oxygen therapy: Hyperbaric oxygen therapy was administered as per the facility's protocol. Hyperbaric oxygen therapy was administered at 2 roel for 90 minutes with no air breaks. The patient tolerated hyperbaric oxygen therapy well, without complaints or complications. Upon galina rgence from the hyperbaric chamber, the patient's vital signs remained stable. He was discharged in good condition, See blood glucose levels documented elsewhere. He is status post eustachian tube placed bilaterally on January 13, 2021, without problems. He has had a small amount of blood in the right ear canal today and in previous days recently, of which ENT is aware. 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 (Chronic) Osteomyelitis (Chronic) Allergies/Adverse Reactions: Allergies onion Allergy (Verified 01/26/21 13:16) Food Allergy SWELLING Home Medications: Ambulatory Orders Medication Instructions Recorded insulin glargine 100 unit/mL (3 50 unit SC QHS 30 Days #15 ml 01/26/21 mL) subcutaneous pen insulin lispro 100 unit/mL 8 unit SC TID 30 Days #7.2 ml 01/26/21 subcutaneous pen blood sugar diagnostic See Rx Instructions .ROUTE 01/28/21 .MEDSUPPLY #200 each lancets See Rx Instructions .ROUTE 02/03/21 .MEDSUPPLY #200 each pen needle, diabetic 31 gauge x See Rx Instructions .ROUTE 02/03/21 3/16 .MEDSUPPLY #100 each Paternal Family History: Family History (Last Updated 01/26/21 @ 13:22 by Tatum Bourne) Grandmother Diabetes Family History: - - His father from an industrial accident. Maternal Family History: Family History (Last Updated 01/26/21 @ 13:22 by Tatum Bourne) Grandmother Diabetes Family History: - - Denies knowledge of maternal medical history Smoking Status: Former smoker Tobacco Use: Non-smoker Physical Exam Vital Signs Temp Pulse Resp BP 97.2 F L 102 H 18 147/70 H 02/17/21 09:33 02/17/21 09:33 02/17/21 09:33 02/17/21 09:33 Assessment/Plan Active Problems (Last Updated 01/26/21 @ 13:21 by Tatum Bourne) Type 2 diabetes mellitus with diabetic polyneuropathy (Chronic) Maceration of periwound skin (Acute) 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 (Chronic) Osteomyelitis (Chronic) The patient appears to be tolerating hyperbaric oxygen therapy well, which will be continued as per the patient's medical plan. Treatment Course Number Number of HBO Treatments 30 Ordered Treatment Course Number 1 Treatment # 13 Chamber # 1 Chamber Type Monoplace Treatment Plan BANDAR (Atmospheric Absolute) 2 Number of Minutes 90 Number of Air Breaks 0
[2021-02-18 09:59] VITALS: BP 124/64; BP 133/79; PULSE 105; PULSE 97; RESP 16; TEMP 36.1; TEMP 36.3
[2021-02-18 11:06] LABS: Bedside Glucose 200 mg/dL (70-110)
--- NOTE | 2021-02-18 12:59 | HBO.PN.PCM_ITS ---
History of Present Illness Date of Service: 02/18/21 Presenting Chief Complaint: Diabetic, left heel ulcer with osteomyelitis LIZETH BURGOS is a 60 year old currently undergoing hyperbaric oxygen therapy for Villela's grade 3 diabetic foot ulcer to the left heel with osteomyelitis. Progress: Today's hyperbaric oxygen session represents the 14th of 40 planned sessions of hyperbaric oxygen therapy. Tolerance of hyperbaric oxygen therapy: Hyperbaric oxygen therapy was administered as per the facility's protocol. Hyperbaric oxygen therapy was administered at 2 roel for 90 minutes with no air breaks. The patient tolerated hyperbaric oxygen therapy well, without complaints or complications. Upon galina rgence from the hyperbaric chamber, the patient's vital signs remained stable. He was discharged in good condition, See blood glucose levels documented elsewhere. He is status post eustachian tube placed bilaterally on January 13, 2021, without problems. He has had a small amount of blood in the right ear canal today and in previous days recently, of which ENT is aware. 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 (Chronic) Osteomyelitis (Chronic) Allergies/Adverse Reactions: Allergies onion Allergy (Verified 01/26/21 13:16) Food Allergy SWELLING Home Medications: Ambulatory Orders Medication Instructions Recorded insulin glargine 100 unit/mL (3 50 unit SC QHS 30 Days #15 ml 01/26/21 mL) subcutaneous pen insulin lispro 100 unit/mL 8 unit SC TID 30 Days #7.2 ml 01/26/21 subcutaneous pen blood sugar diagnostic See Rx Instructions .ROUTE 01/28/21 .MEDSUPPLY #200 each lancets See Rx Instructions .ROUTE 02/03/21 .MEDSUPPLY #200 each pen needle, diabetic 31 gauge x See Rx Instructions .ROUTE 02/03/21 3/ .MEDSUPPLY #100 each Paternal Family History: Family History (Last Updated 01/26/21 @ 13:22 by Tatum Bourne) Grandmother Diabetes Family History: - - His father from an industrial accident. Maternal Family History: Family History (Last Updated 01/26/21 @ 13:22 by Tatum Bourne) Grandmother Diabetes Family History: - - Denies knowledge of maternal medical history Smoking Status: Former smoker Tobacco Use: Non-smoker Physical Exam Vital Signs Temp Pulse Resp BP 97.0 F L 105 H 16 124/64 H 02/18/21 09:59 02/18/21 09:59 02/18/21 09:59 02/18/21 09:59 General: Alert, Oriented x3, Cooperative, No apparent distress HEENT: Atraumatic, Normocephalic Lungs: Normal air movement Psych/Mental Status: Normal Affect Assessment/Plan Active Problems (Last Updated 01/26/21 @ 13:21 by Tatum Bourne) Type 2 diabetes mellitus with diabetic polyneuropathy (Chronic) Maceration of periwound skin (Acute) 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 (Chronic) Osteomyelitis (Chronic) The patient appears to be tolerating hyperbaric oxygen therapy well, which will be continued as per the patient's medical plan. Treatment Course Number Number of HBO Treatments 30 Ordered Treatment Course Number 1 Treatment # 14 Chamber # 1 Chamber Type Monoplace Treatment Plan BANDAR (Atmospheric Absolute) 2 Number of Minutes 90 Number of Air Breaks 0 - Wound Center CF Procedures HBO Supervision: [id number] Hyperbaric Oxygen; supervision
[2021-02-18 15:46] LABS: Bedside Glucose 129 mg/dL (70-110)
[2021-02-18 15:46] LABS: Bedside Glucose 145 mg/dL (70-110)
[2021-02-19 08:06] LABS: Bedside Glucose 165 mg/dL (70-110)
[2021-02-19 08:38] VITALS: BP 113/57; BP 119/71; PULSE 106; PULSE 93; RESP 16; RESP 18; TEMP 36.1
[2021-02-19 10:21] LABS: Bedside Glucose 220 mg/dL (70-110)
--- NOTE | 2021-02-19 12:54 | HBO.PN.PCM_ITS ---
History of Present Illness Date of Service: 02/19/21 Presenting Chief Complaint: Diabetic, left heel ulcer with osteomyelitis LIZETH BURGOS is a 60 year old currently undergoing hyperbaric oxygen therapy for Villela's grade 3 diabetic foot ulcer to the left heel with osteomyelitis. Progress: Today's hyperbaric oxygen session represents the 15th of 40 planned sessions of hyperbaric oxygen therapy. Tolerance of hyperbaric oxygen therapy: Hyperbaric oxygen therapy was administered as per the facility's protocol. Hyperbaric oxygen therapy was administered at 2 roel for 90 minutes with no air breaks. The patient tolerated hyperbaric oxygen therapy well, without complaints or complications. Upon galina rgence from the hyperbaric chamber, the patient's vital signs remained stable. He was discharged in good condition, See blood glucose levels documented elsewhere. He is status post eustachian tube placed bilaterally on January 13, 2021, without problems. 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 (Chronic) Osteomyelitis (Chronic) Allergies/Adverse Reactions: Allergies onion Allergy (Verified 01/26/21 13:16) Food Allergy SWELLING Home Medications: Ambulatory Orders Medication Instructions Recorded insulin glargine 100 unit/mL (3 50 unit SC QHS 30 Days #15 ml 01/26/21 mL) subcutaneous pen insulin lispro 100 unit/mL 8 unit SC TID 30 Days #7.2 ml 01/26/21 subcutaneous pen blood sugar diagnostic See Rx Instructions .ROUTE 01/28/21 .MEDSUPPLY #200 each lancets See Rx Instructions .ROUTE 02/03/21 .MEDSUPPLY #200 each pen needle, diabetic 31 gauge x See Rx Instructions .ROUTE 02/03/21 3/16 .MEDSUPPLY #100 each Paternal Family History: Family History (Last Updated 01/26/21 @ 13:22 by Tatum Bourne) Grandmother Diabetes Family History: - - His father from an industrial accident. Maternal Family History: Family History (Last Updated 01/26/21 @ 13:22 by Tatum Bourne) Grandmother Diabetes Family History: - - Denies knowledge of maternal medical history Smoking Status: Former smoker Tobacco Use: Non-smoker Physical Exam Vital Signs Temp Pulse Resp BP 97.0 F L 106 H 18 113/57 L 02/19/21 08:38 02/19/21 08:38 02/19/21 08:38 02/19/21 08:38 General: Alert, Oriented x3, Cooperative, No apparent distress Psych/Mental Status: Normal Affect, Appropriate Assessment/Plan Active Problems (Last Updated 01/26/21 @ 13:21 by Tatum Bourne) Type 2 diabetes mellitus with diabetic polyneuropathy (Chronic) Maceration of periwound skin (Acute) 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 (Chronic) Osteomyelitis (Chronic) The patient appears to be tolerating hyperbaric oxygen therapy well, which will be continued as per the patient's medical plan. Treatment Course Number Number of HBO Treatments 30 Ordered Treatment Course Number 1 Treatment # 15 Chamber # 1 Chamber Type Monoplace Treatment Plan BANDAR (Atmospheric Absolute) 2 Number of Minutes 90 Number of Air Breaks 0
[2021-02-22 08:06] LABS: Bedside Glucose 190 mg/dL (70-110)
--- NOTE | 2021-02-22 08:30 | HBO.PN.PCM_ITS ---
History of Present Illness Date of Service: 02/22/21 Presenting Chief Complaint: Diabetic, left heel ulcer with osteomyelitis LIZETH BURGOS is a 60 year old currently undergoing hyperbaric oxygen therapy for Villela's grade 3 diabetic foot ulcer to the left heel with osteomyelitis. Progress: Today's hyperbaric oxygen session represents the 16th of 40 planned sessions of hyperbaric oxygen therapy. Tolerance of hyperbaric oxygen therapy: Hyperbaric oxygen therapy was administered as per the facility's protocol. Hyperbaric oxygen therapy was administered at 2 roel for 90 minutes with no air breaks. The patient tolerated hyperbaric oxygen therapy well, without complaints or complications. Upon galina rgence from the hyperbaric chamber, the patient's vital signs remained stable. He was discharged in good condition, See blood glucose levels documented elsewhere. He is status post eustachian tube placed bilaterally on January 13, 2021, without problems. 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 (Chronic) Osteomyelitis (Chronic) Allergies/Adverse Reactions: Allergies onion Allergy (Verified 01/26/21 13:16) Food Allergy SWELLING Home Medications: Ambulatory Orders Medication Instructions Recorded insulin glargine 100 unit/mL (3 50 unit SC QHS 30 Days #15 ml 01/26/21 mL) subcutaneous pen insulin lispro 100 unit/mL 8 unit SC TID 30 Days #7.2 ml 01/26/21 subcutaneous pen blood sugar diagnostic See Rx Instructions .ROUTE 01/28/21 .MEDSUPPLY #200 each lancets See Rx Instructions .ROUTE 02/03/21 .MEDSUPPLY #200 each pen needle, diabetic 31 gauge x See Rx Instructions .ROUTE 02/03/21 3 .MEDSUPPLY #100 each Paternal Family History: Family History (Last Updated 01/26/21 @ 13:22 by Tatum Bourne) Grandmother Diabetes Family History: - - His father from an industrial accident. Maternal Family History: Family History (Last Updated 01/26/21 @ 13:22 by Tatum Bourne) Grandmother Diabetes Family History: - - Denies knowledge of maternal medical history Smoking Status: Former smoker Tobacco Use: Non-smoker Physical Exam Vital Signs Temp Pulse Resp BP 97.0 F L 106 H 18 113/57 L 02/19/21 08:38 02/19/21 08:38 02/19/21 08:38 02/19/21 08:38 General: Alert, Oriented x3, Cooperative, No apparent distress HEENT: Atraumatic, TM's Clear Lungs: Clear to auscultation, Normal air movement Cardiovascular: Regular rate, Regular Rhythm Psych/Mental Status: Normal Affect, Appropriate, Alert and oriented to time, place, person, mood and affect Assessment/Plan Active Problems (Last Updated 01/26/21 @ 13:21 by Tatum Bourne) Type 2 diabetes mellitus with diabetic polyneuropathy (Chronic) Maceration of periwound skin (Acute) 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 (Chronic) Osteomyelitis (Chronic) The patient appears to be tolerating hyperbaric oxygen therapy well, which will be continued as per the patient's medical plan. Treatment Course Number Number of HBO Treatments 30 Ordered Treatment Course Number 1 Treatment # 16 Chamber # 1 Chamber Type Monoplace Treatment Plan BANDAR (Atmospheric Absolute) 2 Number of Minutes 90 Number of Air Breaks 0
[2021-02-22 09:04] VITALS: BP 135/71; BP 143/81; PULSE 112; PULSE 96; RESP 16; RESP 17; TEMP 36.2; TEMP 36.3
[2021-02-22 10:26] LABS: Bedside Glucose 227 mg/dL (70-110)
[2021-02-24 08:19] VITALS: BP 116/77; PULSE 94; RESP 18; TEMP 37; BMI 28.8
[2021-02-24 08:50] LABS: Bedside Glucose 156 mg/dL (70-110)
[2021-02-24 09:17] VITALS: BP 104/56; BP 116/77; PULSE 94; PULSE 98; RESP 16; RESP 18; TEMP 36.8; TEMP 37
[2021-02-24 11:01] LABS: Bedside Glucose 170 mg/dL (70-110)
--- NOTE | 2021-02-24 12:38 | PN_ITS ---
Subjective Subjective: 60 year old here for HBO of the L foot for osteomylitis. Objective Data Objective Data VS and BS stable no c/o ear pain .Patient still using his drops . Maintained integrity of the HBO today without any problems. patient was d/c in good condition . 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
[2021-02-25 08:00] LABS: Bedside Glucose 202 mg/dL (70-110)
[2021-02-25 08:46] VITALS: BP 116/78; BP 138/66; PULSE 92; PULSE 97; RESP 16; RESP 18; TEMP 36.7
[2021-02-25 11:30] LABS: Bedside Glucose 192 mg/dL (70-110)
== END 2021-02-26 23:59 ==
LOC: WC 08:00
PROVIDERS: Visit Provider Podiatrist
DX: E11.621 Type 2 diabetes mellitus with foot ulcer (principal); L97.424 Non-pressure chronic ulcer of left heel and midfoot with necrosis of bone; E11.69 Type 2 diabetes mellitus with other specified complication; M86.672 Other chronic osteomyelitis, left ankle and foot; E11.42 Type 2 diabetes mellitus with diabetic polyneuropathy; E11.65 Type 2 diabetes mellitus with hyperglycemia; S86.012A Strain of left Achilles tendon, initial encounter; X58.XXXA Exposure to other specified factors, initial encounter; Y93.9 Activity, unspecified; Y92.9 Unspecified place or not applicable; Y99.9 Unspecified external cause status; R26.2 Difficulty in walking, not elsewhere classified; R26.89 Other abnormalities of gait and mobility; Z91.19 Patient's noncompliance with other medical treatment and regimen; Z79.4 Long term (current) use of insulin
CPT/HCPCS: 11042; 15275; 69210; 82962; 97605; 99183; Q4186; G0277

== ENCOUNTER 2021-03-05 09:27 | Inpatient (IN) | payer MEDICAID, SELFPAY ==
[2021-03-03 15:24] VITALS: BMI 28.8
[2021-03-05] VITALS (8 sets, daily range): BP systolic 112–146; BP diastolic 63–70; PULSE 75–101; RESP 16–20; TEMP 35.8–37.1; O2SAT 94–98; BMI 28.7; BMI 26.9
--- NOTE | 2021-03-05 09:53 | EDS_ITS ---
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 Patient states he was seen in the office 2 days ago. He was called this morning and told to come to the emergency room. He notes he had a fever 2 days ago. Patient had cultures of his wound as well as x-ray performed. Other reviewed and uploaded errantly show a gram negative rods, likely Proteus. Patient was put on an antibiotic 2 days but does not know the name of it. 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 He is not sure if he had any increased drainage, odor or any other changes. He states he does not feel well but is not more specific than that. He has chronic edema of his left leg which is unchanged. Is been going on for the past 8 months. Patient has been on Bactrim. [facility] Medical History Arthritis COPD (chronic obstructive pulmonary disease) Depression Diabetes Former smoker History of pulmonary embolism Substance abuse Type 2 diabetes mellitus without complications Home Medications insulin glargine 100 unit/mL (3 mL) subcutaneous pen 50 unit SC QHS 30 Days #15 ml 01/26/21 [Rx Last Taken Unknown] blood sugar diagnostic #200 each 01/28/21 [Rx Last Taken Unknown] lancets #200 each 02/03/21 [Rx Last Taken Unknown] pen needle, diabetic 31 gauge x 3/16 #100 each 02/03/21 [Rx Last Taken Unknown] insulin lispro 8 unit SUBCUT TIDCM 03/05/21 [History Last Taken Unknown] Allergy/AdvReac Type Severity Reaction Status Date / Time onion Allergy Food Verified 01/26/21 13:16 Allergy Family History Grandmother Diabetes Surgical History History of appendectomy History of neck surgery Hx of LASIK Social History Smoking Status: Former smoker alcohol intake: never substance use type: does not use what type of physical activity do you participate in: none ROS ROS ED Constitutional Constitutional ED: Reports other Details: Fatigue ; Denies chills, fever(s) or malaise Eyes Eyes: Denies blurry vision or loss of vision ENT ENT ED: Denies rhinorrhea or sore throat Cardiovascular Cardiovascular: Denies chest pain or dizziness Respiratory/Chest Respiratory/Chest: Denies cough or dyspnea Gastrointestinal Gastrointestinal: Denies nausea or vomiting Genitourinary Genitourinary ED: Denies dysuria or hematuria Musculoskeletal Musculoskeletal: Reports other Details: Chronic edema of the left lower extremity ; Denies arthralgias or myalgias Integumentary Reports other Details: Chronic wound left heel ; Denies rash or wounds Neurologic Neurologic: Denies focal weakness or headache(s) Psychiatric Psychiatric: Denies anxiety or behavioral changes EXAM Physical Exam Const Vital Signs: 03/05/21 09:29 03/05/21 10:40 03/05/21 10:45 Temperature 96.5 F L 96.5 F L 97.6 F L Temperature Source Temporal Temporal Temporal Pulse Rate 101 H 101 H Respiratory Rate 16 16 Blood Pressure 118/67 118/67 Blood Pressure Mean 84 84 Pulse Ox 98 98 95 Oxygen Delivery Method Room Air Room Air Room Air 03/05/21 10:55 Temperature 97.6 F L Temperature Source Temporal Pulse Rate 75 Respiratory Rate 20 H Blood Pressure 125/66 H Blood Pressure Mean 85 Pulse Ox 97 Oxygen Delivery Method Room Air Positive well nourished, well developed and no apparent distress General Appearance ED: well developed HEENT Reports normocephalic and moist mucous membranes atraumatic Nose: no nasal discharge General Ear: hearing grossly impaired External Ear: external ears normal Mouth ED: Yes moist mucous membranes abnormal Mouth: moist mucous membranes abnormal Eyes PERRL and EOMs intact bilaterally Neck full ROM, supple, no meningeal signs and no JVD Chest Wall inspection of chest normal Resp normal respiratory effort and normal air movement Cardio regular rate and regular rhythm GI normal to inspection, nondistended, normoactive bowel sounds Extremity normal to inspection and full ROM Extremity Narrative: 1+ bilateral DP and PT pulses Neuro oriented x3, no focal motor deficits and no sensory deficits noted Sensorium / Orientation: alert Psych mental status grossly normal and thought process normal Skin no rashes or lesions noted Skin Narrative: 4 to 5 cm chronic appearing wound that is full-thickness on the left heel with malodorous and purulent discharge present. No significant surrounding cellulitic changes. No erythematous streaking noted. MDM MDM MDM Narrative Medical decision making narrative: Patient is evaluated for concern of worsening chronic wound. The wound does appear infected on exam, despite outpatient antibiotics. He does not have any systemic symptoms besides feeling fatigued. He is otherwise well-appearing. Spoke with podiatry who is aware of the patient and feel that he needs IV antibiotics. His preliminary culture is concerning for gram-negative rods, likely Proteus so he is started on Zosyn. Cultures are pending. Patient does have worsening CRP and ESR. He is not appear septic. Discussed with podiatry on-call, Dr. Armendariz. Patient is admitted to the hospital service. As patient had x-ray 2 days ago I did not repeat an x-ray. Lab Data Attestation: I reviewed the patient's lab results. Labs: Laboratory Results - last 24 hr 03/05/21 03/05/21 03/05/21 10:05 10:05 10:05 WBC 10.9 RBC 4.41 L Hgb 12.5 L Hct 38.6 L MCV 87.5 MCH 28.3 MCHC 32.4 RDW Std Deviation 43.0 RDW Coeff of Cheri 13.5 Plt Count 319 MPV 9.0 Immature Gran % (Auto) 0.500 Neut % (Auto) 76.1 H Lymph % (Auto) 14.5 L Lamb % (Auto) 7.0 Eos % (Auto) 1.6 Baso % (Auto) 0.3 Absolute Neuts (auto) 8.3 H Absolute Lymphs (auto) 1.58 Nucleated RBC % 0 ESR 50 H PT 13.2 INR 1.1 APTT 35.6 Sodium 136 Potassium 3.7 Chloride 104 Carbon Dioxide 26.0 Anion Gap 6 BUN 15 Creatinine 0.99 Estim Creat Clear Calc 80.91 Est GFR (MDRD) Af Amer 98 Est GFR (MDRD) Non-Af 81 BUN/Creatinine Ratio 15.1 Glucose 223 H Lactic Acid Calcium 8.4 L Phosphorus Total Bilirubin 0.50 AST 16 ALT 17 Alkaline Phosphatase 106 C-React Prot Ext Range 93.70 H Total Protein 7.1 Albumin 2.6 L Globulin 4.5 H Albumin/Globulin Ratio 0.6 L Prealbumin 03/05/21 03/05/21 10:05 10:05 WBC RBC Hgb Hct MCV MCH MCHC RDW Std Deviation RDW Coeff of Cheri Plt Count MPV Immature Gran % (Auto) Neut % (Auto) Lymph % (Auto) Lamb % (Auto) Eos % (Auto) Baso % (Auto) Absolute Neuts (auto) Absolute Lymphs (auto) Nucleated RBC % ESR PT INR APTT Sodium Potassium Chloride Carbon Dioxide Anion Gap BUN Creatinine Estim Creat Clear Calc Est GFR (MDRD) Af Amer Est GFR (MDRD) Non-Af BUN/Creatinine Ratio Glucose Lactic Acid 1.0 Calcium Phosphorus 2.8 Total Bilirubin AST ALT Alkaline Phosphatase C-React Prot Ext Range Total Protein Albumin Globulin Albumin/Globulin Ratio Prealbumin 11.0 L Discharge Plan Triage Chief Complaint: Wound Check ED Provider: Jenny Valadez Dx/Rx/DC Orders Clinical Impression: Non-pressure chronic ulcer of other part of left foot with necrosis of bone, Type 2 diabetes mellitus with diabetic polyneuropathy Primary Care Provider: Care Physician,No Primary Disposition Disposition: Acute Care Hospital [facility] Discharge Date/Time: 03/05/21 12:02
[2021-03-05 10:16] LABS: Erythrocyte Sedimentation Rate 50 mm/hr (0-20)
[2021-03-05 10:17] LABS: Absolute Lymphocyte Count 1.58 X10^3/uL (0.83-4.51); Absolute Neutrophil Count 8.3 X10^3/uL (2.0-7.7); Basophil# 0.03 X10^3/uL; Basophil% 0.3 % (0-1); Eosinophil# 0.17 X10^3/uL; Eosinophils% 1.6 % (0-5); Hematocrit 38.6 % (40-54); Hemoglobin 12.5 g/dL (13.0-16.5); Lymphocyte # 1.58 X10^3/ul (0.83-4.51); Lymphocyte % 14.5 % (19-41); Mean Corp Hgb Conc 32.4 g/dL (32-36); Mean Corpuscular Hgb 28.3 pg (27.0-32.0); Mean Corpuscular Volume 87.5 fL (80-94); Monocyte# 0.77 X10^3/uL; NRBC Flagged by Analyzer 0 % (0-5); Neutrophil # 8.33 X10^3/uL (2.7-7.7); Neutrophil % 76.1 % (47-70); Platelet Count 319 K/mm3 (150-450); RBC Distribution Width CV 13.5 % (11.6-14.6); Red Blood Count 4.41 M/mm3 (4.6-6.2); White Blood Count 10.9 K/mm3 (4.4-11.0)
[2021-03-05 10:22] LABS: International Normalized Ratio 1.1; Prothrombin Time (Protime)PT. 13.2 SECONDS (11.7-14.9)
[2021-03-05 10:23] LABS: Partial Thromboplast Time 35.6 Seconds (24.1-36.2)
[2021-03-05 10:30] LABS: ALB/GLOB Ratio 0.6 RATIO (0.9-2.4); AST(SGOT) 16 U/L (15-37); Alanine Aminotransfer ALT/SGPT 17 U/L (16-61); Albumin, Serum 2.6 g/dL (3.2-5.0); Alkaline Phosphatase 106 U/L (45-117); Anion Gap 6 (5-15); BUN 15 mg/dL (7-18); BUN/Creat Ratio 15.1 RATIO (10-20); Calcium,Total 8.4 mg/dL (8.5-10.1); Chloride 104 mmol/L (98-107); Creatinine, Serum 0.99 mg/dL (0.70-1.30); EST Glomerular Filtration Rate 81 mL/min (>60); Est Glom Filt Rate - Afr Amer 98 mL/min (>60); Estimated Creatinine Clearance 80.91 ml/min; Globulin 4.5 g/dL (2.2-4.2); Glucose 223 mg/dL (74-106); Potassium 3.7 mmol/L (3.5-5.1); Protein, Total 7.1 g/dL (6.4-8.2); Sodium Level 136 mmol/L (136-145)
--- NOTE | 2021-03-05 10:53 | NURSING ---
DR SALVADOR FOR DR LAW
--- NOTE | 2021-03-05 10:54 | NURSING ---
MED SURG MADELEINE INFECTED LT HEEL WOUND
--- NOTE | 2021-03-05 10:55 | HP.PCM.HOS_ITS ---
HPI - General General Date of Admission: 03/05/21 HPI Narrative LIZETH BURGOS, is a 60 M who presents to ER with left heel diabetic ulcer. He follows wound care center, last visit 03/03/2021. In the morning today he called Dr. Calloway for concern of worsening wound condition and was told to come to ED. Denies fever to me but he told ER physician fever 2 days ago. Left foot x- ray done on 03/03 shows no osteomyelitis but recommended MRI. Previous wound culture shows Proteus mirabilis, MRSA,Morganella, anaerobic cocci strep group B. Species noted multiple organisms. Wound culture from 03/03, preliminary shows staph aureus and gram-negative anselmo. he has history of diabetes mellitus type 2. As per ER physician he has been on Bactrim but home medication does not show Bactrim. Laboratory Results [facility] Medical History Arthritis COPD (chronic obstructive pulmonary disease) Depression Diabetes Former smoker History of pulmonary embolism Substance abuse Type 2 diabetes mellitus without complications Home Medications insulin glargine 100 unit/mL (3 mL) subcutaneous pen 50 unit SC QHS 30 Days #15 ml 01/26/21 [Rx Last Taken Unknown] insulin lispro 100 unit/mL subcutaneous pen 8 unit SC TID 30 Days #7.2 ml 01/26/21 [Rx Last Taken Unknown] blood sugar diagnostic #200 each 01/28/21 [Rx Last Taken Unknown] lancets #200 each 02/03/21 [Rx Last Taken Unknown] pen needle, diabetic 31 gauge x 3/16 #100 each 02/03/21 [Rx Last Taken Unknown] Allergy/AdvReac Type Severity Reaction Status Date / Time onion Allergy Food Verified 01/26/21 13:16 Allergy Family History Grandmother Diabetes Surgical History History of appendectomy History of neck surgery Hx of LASIK Social History Smoking Status: Former smoker alcohol intake: never substance use type: does not use what type of physical activity do you participate in: none ROS ROS Narrative Constitutional: Reports fatigue and weakness, mild occasional fever HEENT: Reports systems reviewed and no addt'l complaints, except as documented Respiratory/Chest: Denies shortness of breath with exertion Gastrointestinal: Denies coffee ground emesis, hematemesis or vomiting Genitourinary: Denies burning urination Musculoskeletal: Reports joint pain and limited range of motion Neurologic: Denies seizure-like activity Endocrinology: Blood sugar is uncontrolled. Reports systems reviewed and no addt'l complaints, except as documented Hematologic/Lymphatic: Reports systems reviewed and no addt'l complaints, except as documented Rest 12 ROS are negative except as mentioned in HPI Vital Signs Vital Signs Vital Signs: 03/05/21 09:29 03/05/21 10:40 03/05/21 10:45 Temperature 96.5 F L 96.5 F L 97.6 F L Temperature Source Temporal Temporal Temporal Pulse Rate 101 H 101 H Respiratory Rate 16 16 Blood Pressure 118/67 118/67 Blood Pressure Mean 84 84 Pulse Ox 98 98 95 Oxygen Delivery Method Room Air Room Air Room Air Physical Exam Narrative General: Alert, Oriented x3, Cooperative HEENT: Atraumatic, PERRLA, EOMI, Normocephalic Oral: No Gingival or Mucosal Lesions/ Ulcerations Neck: Supple, No JVD, Negative Carotid Bruits Lungs: Air entry diminished in bilateral lung bases. No crepitation/rhonchi Cardiovascular: Regular rate, Regular Rhythm, Normal S1, Normal S2, No murmurs Abdomen: Bowel Sounds Present, Soft, Non Tender, Non-Distended : No renal angle tenderness. No suprapubic tenderness. Extremities: Mild left foot edema, Capillary Refill Less than 3 Seconds Skin: Left heel deep ulcer, oval in shape about 5/4 cm, wound surface necrotic with slough. Diabetic ulcer Musculoskeletal: No Tenderness to Palpation of Joints or Extremities Neurological: Decreased touch and pressure sensation over left foot and heel. Left great toe position sense intact. Cranial nerves II-XII grossly intact, Deep Tendon Reflexes 2+/4 Psych/Mental Status: Normal Affect, Appropriate. Lab / Micro Data Result Diagrams: 03/05/21 10:05 03/05/21 10:05 Labs: Laboratory Results - last 24 hr 03/05/21 03/05/21 03/05/21 10:05 10:05 10:05 WBC 10.9 RBC 4.41 L Hgb 12.5 L Hct 38.6 L MCV 87.5 MCH 28.3 MCHC 32.4 RDW Std Deviation 43.0 RDW Coeff of Cheri 13.5 Plt Count 319 MPV 9.0 Immature Gran % (Auto) 0.500 Neut % (Auto) 76.1 H Lymph % (Auto) 14.5 L Andrew % (Auto) 7.0 Eos % (Auto) 1.6 Baso % (Auto) 0.3 Absolute Neuts (auto) 8.3 H Absolute Lymphs (auto) 1.58 Nucleated RBC % 0 ESR 50 H PT 13.2 INR 1.1 APTT 35.6 Sodium 136 Potassium 3.7 Chloride 104 Carbon Dioxide 26.0 Anion Gap 6 BUN 15 Creatinine 0.99 Estim Creat Clear Calc 80.91 Est GFR (MDRD) Af Amer 98 Est GFR (MDRD) Non-Af 81 BUN/Creatinine Ratio 15.1 Glucose 223 H Lactic Acid Calcium 8.4 L Total Bilirubin 0.50 AST 16 ALT 17 Alkaline Phosphatase 106 C-React Prot Ext Range 93.70 H Total Protein 7.1 Albumin 2.6 L Globulin 4.5 H Albumin/Globulin Ratio 0.6 L 03/05/21 10:05 WBC RBC Hgb Hct MCV MCH MCHC RDW Std Deviation RDW Coeff of Cheri Plt Count MPV Immature Gran % (Auto) Neut % (Auto) Lymph % (Auto) Andrew % (Auto) Eos % (Auto) Baso % (Auto) Absolute Neuts (auto) Absolute Lymphs (auto) Nucleated RBC % ESR PT INR APTT Sodium Potassium Chloride Carbon Dioxide Anion Gap BUN Creatinine Estim Creat Clear Calc Est GFR (MDRD) Af Amer Est GFR (MDRD) Non-Af BUN/Creatinine Ratio Glucose Lactic Acid 1.0 Calcium Total Bilirubin AST ALT Alkaline Phosphatase C-React Prot Ext Range Total Protein Albumin Globulin Albumin/Globulin Ratio Assessment & Plan Assessment/Plan (1) 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: (2) Type 2 diabetes mellitus with diabetic polyneuropathy: QUALIFIERS: Diabetes mellitus retirement insulin use: 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 1. Left heel diabetic ulcer with slough and necrosis at base: Patient is being admitted on MedSurg floor. ID, unhairing inspector and wound care nurse consulted. MRI left foot ordered. Started on IV Unasyn and vancomycin. Previous wound culture shows Proteus mirabilis, MRSA,Morganella, anaerobic cocci strep group B. Species noted multiple organisms. Wound culture from 03/03, preliminary shows staph aureus and gram-negative anselmo. Blood culture has been ordered from ER. Lactic acid normal. No leukocytosis. CRP and ESR elevated. 2. Diabetes mellitus type 2 with diabetic neuropathy: A1c tomorrow a.m. Accu- Chek before meals and at bedtime cover with Humalog sliding scale. On home dose of Lantus and short-acting insulin 3. COPD with history of pulmonary embolism in the past: Currently patient is not on anticoagulant agent. 4. History of rheumatoid arthritis, and osteomyelitis in the past: PT OT ordered. Cemetery Manager consult. VTE prophylaxis: Lovenox 40 mg subcu daily. Discontinue if platelet count drops less than 50,000 or hemoglobin less than 8 g% Visit Charges Inpatient E&M: 54238 Init Hosp L3
--- NOTE | 2021-03-05 11:42 | RAD_ITS ---
STUDY: X-RAY CHEST REASON FOR EXAM: Male, 60 years old. Fever TECHNIQUE: Single AP portable view of the chest. COMPARISON: Comparison is made with prior study dated 12/08/2020. FINDINGS: EKG electrodes are seen. There is hyperinflation of the lungs consistent with chronic obstructive lung disease (COPD). Scattered calcified granulomas. There is no demonstrated pleural abnormality. Normal size heart. Normal mediastinum and josue. Normal visualized pulmonary arteries. Normal visualized aortic arch and descending thoracic aorta. Normal visualized thoracic spine. There is evidence of prior fusion in the lower cervical spine. There is no demonstrated abnormality of the visualized soft tissue structures of the upper abdomen. RAD/Chest 1 View (Portable) IMPRESSION: Hyperinflation. The lungs are clear. Electronically Signed: Gustavo Lezama MD at 12:29 EDT , Service support ,
--- NOTE | 2021-03-05 12:41 | MRI_ITS ---
STUDY: MRI LEFT REARFOOT WITHOUT CONTRAST REASON FOR EXAM: Male, 60 years old. Left Heel deep ulcer -- The ulcer has deep necrotic bed TECHNIQUE: Standardized fat and water weighted pulse sequences were obtained in all 3 orthogonal planes. COMPARISON: Left foot x-ray dated MARCH 03, 2021. FINDINGS: A large 2.14 x 1.50 cm soft tissue open wound is present directly beneath the posterior process of the calcaneus associated mild to moderate cortical erosion on the plantar surface of the bone and extensive edema throughout the body and posterior process, due to osteomyelitis. Mild reactive edema is present in the neck of the talus but no cortical erosion or intramedullary infiltration is demonstrated to suggest infection. A small ankle joint effusion is present. Small cortical spurs and subchondral cystic changes are present in the tibial plafond. No visualized soft tissue abscess. Mild diffuse subcutaneous edema is present. Normal posterior tibialis tendon. Normal flexor digitorum longus tendon. Normal flexor hallucis longus tendon. There is a mild tenosynovitis of the peroneal tendons without a demonstrated tendon tear. Normal tibialis anterior tendon. Normal extensor hallucis longus tendon. Normal extensor digitorum longus tendons. Normal Achilles tendon and teno-osseous insertion. There is fatty atrophy and denervation atrophy of the foot muscles consistent with neuropathy. Normal distal tibiofibular syndesmotic ligamentous complex. Normal lateral ligamentous complex. Normal subtalar ligaments and sinus tarsi. Normal deltoid ligamentous complexes. Normal plantar calcaneonavicular (spring) ligament. Normal tibiotalar articulation. Normal talar dome. Normal subtalar articulations. Normal talonavicular articulation. Normal calcaneocuboid articulation. Normal navicular-cuneiform articulations. MRI/Lower Ext/No Jt/w/o IMPRESSION: 1. Mild to moderate osteomyelitis on the plantar aspect of the posterior process of the calcaneus. Large soft tissue heel ulcer/wound. Electronically Signed: Greg Ferrari MD at 8:20 EDT , Service support ,
--- NOTE | 2021-03-05 12:49 | CON.PCM_ITS ---
Assessment & Plan Assessment/Plan (1) Non-pressure chronic ulcer of other part of left foot with necrosis of bone: (2) Type 2 diabetes mellitus with diabetic polyneuropathy: QUALIFIERS: Diabetes mellitus manager long term care insulin use: without manager long term care use Qualified Code(s): E11.42 - Type 2 diabetes mellitus with diabetic polyneuropathy (3) Calcaneal gait: (4) Osteomyelitis: QUALIFIERS: Osteomyelitis type: unspecified type Osteomyelitis location: foot Laterality: left Qualified Code(s): M86.9 - Osteomyelitis, unspecified (5) Achilles rupture, left: QUALIFIERS: Encounter type: subsequent encounter Qualified Code(s): S86.012D - Strain of left Achilles tendon, subsequent encounter PLAN: Patient seen and evaluated bedside. Patient is noted patient of Dr. Calloway is at the wound care center. Patient has been seen by me previously in the hospital setting. Upon discussion with Dr. Calloway as well as chart review is noted the patient was improving was going to hyperbaric oxygen therapy as well as regular wound care appointments for treatment of left plantar heel ulceration. Patient was noted to have worsened on Monday. Patient had labs cultures x-ray obtained on 03/03/2021 and was instructed go to hospital at that time. Patient was started on Bactrim. With worsening of his infection and status to his left heel ulcer it is noted that Dr. Lebron had a discussion with the patient as to regards to treatment options including debridement, antibiotics, or amputation. He is at high risk for a leg amputation. Patient noted to have WBC of 10.9 today and 12.5 on 03/03/2021. ESR today of 50 and 32 on 03/03/2021. Albumin noted to be 2.6 today. CRP noted to be 93.7 today and 53.6 on 03/03/2021 Hemoglobin A1c was last obtained 12/08/2020 with a result of 8.9% Culture obtained 03/03/2021 from the left heel is showing staph aureus as well as gram-negative anselmo. We will continue to follow results. Blood cultures from 03/05/2021 are pending. Patient has a history of osteomyelitis to his left calcaneus which was previously treated with IV antibiotics. He has since finished this course Recommend patient see child psychology teacher while in house. Recommend Edy supplementation. His noninvasive vascular studies 10/28/2020 were reviewed with triphasic PT and DP pulses bilateral.? His right NADIA is 1.12 and left 1.16.? His toe brachial index is 1.12 on the right and 1.34 on the left.? There is no significant segmental pressure drop and therefore no arterial occlusive lesion is suspected. Patient last had a MRI of his left foot on 12/09/2020 which demonstrated increased osteomyelitis of his calcaneus compared to previous MRI study. Given his history and worsening of wound a recommend a repeat MRI to assess current status. Will follow results. Reviewed with the patient the importance of offloading the area, proper blood sugar control, proper nutrition, importance of remaining a non-smoker, proper wound care, and proper infection control in order to best optimize himself for healing. Patient relates that he only walks on his toes and does not put any weight through his heel. Recommend resuming wound VAC therapy while in house. This was discussed with wound care nurse. To apply wound VAC to the left heel at 150 mmHg low continuous pressure. Patient has previously used wound VAC therapy with some success. He relates he still has the wound VAC at home. He relates that he went on a wound VAC break due to maceration a 2 weeks ago All questions were answered. Thank you for the consult. Podiatry will continue to follow. Podiatry will continue to follow. Please feel free to reach out if any questions or concerns. Edie Armendariz DPM [facility] [phone] This note was generated with [employer] dictation software. It may contain incorrect words, spelling, and punctuation that were not noted in checking the note before signing. HPI Consult Data Date of Consult: 03/05/21 HPI Narrative HPI Narrative: LIZETH BURGOS, is a 60 M who presents for worsening left foot infection. Patient has ulceration has been seen at the [facility] wound care center for treatment of this by Dr. Calloway. Patient is currently undergoing hyperbaric oxygen therapy. Patient was seen on Monday by Dr. Calloway was noted to have worsening of the wound which once again probe to bone where it previously been covered by granulation tissue. Patient had labs culture and x-rays obtained at that time and was instructed to go to the hospital. He was started on Bactrim at that time. Patient did not go to the hospital that time. He called our office this morning stating that things were getting worse and he was instructed again to the hospital. Patient has a history of an Achilles rupture to the left side and some noncompliance. Patient has missed appointments for his HBO therapy. Patient has a history of osteomyelitis to his heel and completed a course of IV antibiotics for treatment of that. Patient denies any nausea fever chills vomiting. He is having some pain in his left lower extremity. [facility] Medical History Arthritis COPD (chronic obstructive pulmonary disease) Depression Diabetes Former smoker History of pulmonary embolism Substance abuse Type 2 diabetes mellitus without complications Home Medications insulin glargine 100 unit/mL (3 mL) subcutaneous pen 50 unit SC QHS 30 Days #15 ml 01/26/21 [Rx Last Taken Unknown] insulin lispro 100 unit/mL subcutaneous pen 8 unit SC TID 30 Days #7.2 ml 01/26/21 [Rx Last Taken Unknown] blood sugar diagnostic #200 each 01/28/21 [Rx Last Taken Unknown] lancets #200 each 02/03/21 [Rx Last Taken Unknown] pen needle, diabetic 31 gauge x 3/16 #100 each 02/03/21 [Rx Last Taken Unknown] Allergy/AdvReac Type Severity Reaction Status Date / Time onion Allergy Food Verified 01/26/21 13:16 Allergy Family History Grandmother Diabetes Surgical History History of appendectomy History of neck surgery Hx of LASIK Social History Smoking Status: Former smoker alcohol intake: never substance use type: does not use what type of physical activity do you participate in: none ROS Constitutional Constitutional: Denies chills Cardiovascular Cardiovascular: Denies bluish discoloration of hand/feet, chest pain or claudication Musculoskeletal Musculoskeletal: Reports extremity pain, numbness and tingling Integumentary Integumentary: Reports wounds Neurologic Neurologic: Reports tingling Physical Exam Const alert and no apparent distress General Appearance: cooperative and comfortable HEENT Head and Scalp: atraumatic Resp normal respiratory effort Effort and Inspection: able to speak in complete sentences Extremity normal capillary refill and no calf tenderness General Extremity: Negative for clubbing or cyanosis Peripheral Pulses: Yes posterior tibial pulses present bilateral diminished and dorsalis pedis pulses present bilateral diminished Skin General Skin Exam: Negative for ecchymosis, eschar, pallor or dermatitis Rashes: no rashes Wounds: wounds noted Wound Narrative: ulcers noted to left plantar heel No malodor, purulence, streaking, fluctuation, crepitus. There is bone exposed and easily palpable with other parts of the calcaneus covered with granulation tissue. The bases mixture of granular and fibrotic tissue. There is gill rrounding erythema and edema noted with very minimal maceration noted. There is moderate amount of serous drainage noted. Skin is atrophic and hairless. There is pain upon palpation. The wound measures 4.5 x 5 x 0.7 cm. Neuro Sensory Exam: extremities light-touch: decreased Motor Exam: strength abnormal other (4/5 to all pedal muscle groups. Noted history of Achilles rupture left lower extremity with decreased muscle strength noted.) Psych Appearance: appropriate Attitude: calm Lab / Micro Data Result Diagrams: 03/05/21 10:05 03/05/21 10:05 Labs: Laboratory Results - last 24 hr 03/05/21 03/05/21 03/05/21 10:05 10:05 10:05 WBC 10.9 RBC 4.41 L Hgb 12.5 L Hct 38.6 L MCV 87.5 MCH 28.3 MCHC 32.4 RDW Std Deviation 43.0 RDW Coeff of Cheri 13.5 Plt Count 319 MPV 9.0 Immature Gran % (Auto) 0.500 Neut % (Auto) 76.1 H Lymph % (Auto) 14.5 L Taylor % (Auto) 7.0 Eos % (Auto) 1.6 Baso % (Auto) 0.3 Absolute Neuts (auto) 8.3 H Absolute Lymphs (auto) 1.58 Nucleated RBC % 0 ESR 50 H PT 13.2 INR 1.1 APTT 35.6 Sodium 136 Potassium 3.7 Chloride 104 Carbon Dioxide 26.0 Anion Gap 6 BUN 15 Creatinine 0.99 Estim Creat Clear Calc 80.91 Est GFR (MDRD) Af Amer 98 Est GFR (MDRD) Non-Af 81 BUN/Creatinine Ratio 15.1 Glucose 223 H Lactic Acid Calcium 8.4 L Total Bilirubin 0.50 AST 16 ALT 17 Alkaline Phosphatase 106 C-React Prot Ext Range 93.70 H Total Protein 7.1 Albumin 2.6 L Globulin 4.5 H Albumin/Globulin Ratio 0.6 L 03/05/21 10:05 WBC RBC Hgb Hct MCV MCH MCHC RDW Std Deviation RDW Coeff of Cheri Plt Count MPV Immature Gran % (Auto) Neut % (Auto) Lymph % (Auto) Taylor % (Auto) Eos % (Auto) Baso % (Auto) Absolute Neuts (auto) Absolute Lymphs (auto) Nucleated RBC % ESR PT INR APTT Sodium Potassium Chloride Carbon Dioxide Anion Gap BUN Creatinine Estim Creat Clear Calc Est GFR (MDRD) Af Amer Est GFR (MDRD) Non-Af BUN/Creatinine Ratio Glucose Lactic Acid 1.0 Calcium Total Bilirubin AST ALT Alkaline Phosphatase C-React Prot Ext Range Total Protein Albumin Globulin Albumin/Globulin Ratio Radiology Impression Chest X-Ray 03/05/21 11:42 IMPRESSION: Hyperinflation. The lungs are clear. Electronically Signed: Gustavo Lezama MD at 12:29 EDT , Service support ,
[2021-03-05 13:01] LABS: Bedside Glucose 247 mg/dL (70-110)
[2021-03-05 13:25] LABS: Phosphorus 2.8 mg/dL (2.5-4.9)
[2021-03-05] MEDS: Insulin Lispro 100 UNIT/ML INSULN.PEN 10 UNIT SC (13:30)
[2021-03-05] MEDS: Insulin Lispro 100 UNIT/ML INSULN.PEN SC (13:31)
--- NOTE | 2021-03-05 13:35 | NURSING ---
wound photo: left heel
--- NOTE | 2021-03-05 14:06 | PCM.CONS.GEN ---
Assessment & Plan Assessment/Plan (1) Infection of left foot: PLAN: Cxs showed GNR resistant to unasyn in recent past, will cover empirically with vanc/zosyn. MRI pending. Pt is interested in BKA at this point. Will follow, thank you, d/w Dr. Armendariz HPI Consult Data Date of Consult: 03/05/21 HPI Narrative HPI Narrative: LIZETH BURGOS, is a 60 M with recurrent L foot osteo, presented with increased skin breakdown in L heel. Follows at wound center. No fever, no n/v/. Has completed covid shots. He would like to keep his leg but at this point is ready to just cut the damn thing off. Admitted here, started on vanc/unasyn. Full ROS performed and neg except as noted above. [facility] Medical History Arthritis COPD (chronic obstructive pulmonary disease) Depression Diabetes Former smoker History of pulmonary embolism Substance abuse Type 2 diabetes mellitus without complications Home Medications insulin glargine 100 unit/mL (3 mL) subcutaneous pen 50 unit SC QHS 30 Days #15 ml 01/26/21 [Rx Last Taken Unknown] blood sugar diagnostic #200 each 01/28/21 [Rx Last Taken Unknown] lancets #200 each 02/03/21 [Rx Last Taken Unknown] pen needle, diabetic 31 gauge x /16 #100 each 02/03/21 [Rx Last Taken Unknown] insulin lispro 8 unit SUBCUT TIDCM 03/05/21 [History Last Taken Unknown] Allergy/AdvReac Type Severity Reaction Status Date / Time onion Allergy Food Verified 01/26/21 13:16 Allergy Family History Grandmother Diabetes Surgical History History of appendectomy History of neck surgery Hx of LASIK Social History Smoking Status: Former smoker alcohol intake: never substance use type: does not use what type of physical activity do you participate in: none Physical Exam Const alert, oriented x3 and no apparent distress Constitutional Narrative: tearful General Appearance: cooperative HEENT normocephalic and head/scalp atraumatic Eyes PERRL and EOMs intact bilaterally Neck supple and No nodes Resp clear to auscultation bilaterally Cardio regular rate and regular rhythm GI normal to inspection, nondistended, normoactive bowel sounds Extremity no clubbing, cyanosis or edema Skin Skin Narrative: L foot wrapped Neuro CN's II-XII intact bilaterally Lab / Micro Data Result Diagrams: 03/05/21 10:05 03/05/21 10:05 Labs: Laboratory Results - last 24 hr 03/05/21 03/05/21 03/05/21 10:05 10:05 10:05 WBC 10.9 RBC 4.41 L Hgb 12.5 L Hct 38.6 L MCV 87.5 MCH 28.3 MCHC 32.4 RDW Std Deviation 43.0 RDW Coeff of Cheri 13.5 Plt Count 319 MPV 9.0 Immature Gran % (Auto) 0.500 Neut % (Auto) 76.1 H Lymph % (Auto) 14.5 L Willacy % (Auto) 7.0 Eos % (Auto) 1.6 Baso % (Auto) 0.3 Absolute Neuts (auto) 8.3 H Absolute Lymphs (auto) 1.58 Nucleated RBC % 0 ESR 50 H PT 13.2 INR 1.1 APTT 35.6 Sodium 136 Potassium 3.7 Chloride 104 Carbon Dioxide 26.0 Anion Gap 6 BUN 15 Creatinine 0.99 Estim Creat Clear Calc 80.91 Est GFR (MDRD) Af Amer 98 Est GFR (MDRD) Non-Af 81 BUN/Creatinine Ratio 15.1 Glucose 223 H Lactic Acid Calcium 8.4 L Phosphorus Total Bilirubin 0.50 AST 16 ALT 17 Alkaline Phosphatase 106 C-React Prot Ext Range 93.70 H Total Protein 7.1 Albumin 2.6 L Globulin 4.5 H Albumin/Globulin Ratio 0.6 L Prealbumin POC Glucose 03/05/21 03/05/21 03/05/21 10:05 10:05 12:55 WBC RBC Hgb Hct MCV MCH MCHC RDW Std Deviation RDW Coeff of Cheri Plt Count MPV Immature Gran % (Auto) Neut % (Auto) Lymph % (Auto) Willacy % (Auto) Eos % (Auto) Baso % (Auto) Absolute Neuts (auto) Absolute Lymphs (auto) Nucleated RBC % ESR PT INR APTT Sodium Potassium Chloride Carbon Dioxide Anion Gap BUN Creatinine Estim Creat Clear Calc Est GFR (MDRD) Af Amer Est GFR (MDRD) Non-Af BUN/Creatinine Ratio Glucose Lactic Acid 1.0 Calcium Phosphorus 2.8 Total Bilirubin AST ALT Alkaline Phosphatase C-React Prot Ext Range Total Protein Albumin Globulin Albumin/Globulin Ratio Prealbumin 11.0 L POC Glucose 247 H Radiology Impression Chest X-Ray 03/05/21 11:42 IMPRESSION: Hyperinflation. The lungs are clear. Electronically Signed: Gustavo Lezama MD at 12:29 EDT , Service support ,
[2021-03-05] MEDS: Enoxaparin 40 MG/0.4 ML Syringe SC (14:27)
[2021-03-05] MEDS: 0.9% Saline Lock 10 ML Syringe IV (14:27)
[2021-03-05] MEDS: 0.9% Normal Saline 1,000 ML 100 ML IV (14:27)
[2021-03-05 14:31] LABS: Bacteria 0 SEEN /hpf (None Seen); Mucous, Urine 0 SEEN /hpf (<or=2+); Squamous Epithelial Cells - UA 0 SEEN /hpf (0-5); White Blood Cells 0 SEEN /hpf (0-5)
[2021-03-05 14:35] LABS: Color, Urine Yellow (Yellow); Glucose, Dipstick Normal (Normal); Ketone-Dipstick Negative (Negative); Leukocyte Esterase-Dipstick Negative /ul (Negative); Nitrite-Dipstick Negative (Negative); Occult Blood-Urine 50 /ul (Negative); Protein-Dipstick Negative (Negative); Urine Bilirubin Dipstick Negative (Negative); Urine Clarity Sl. Cloudy (Clear); Urine Urobilinogen 1 mg/dl (Normal); Urine pH 6.5 (5.0 - 8.0)
[2021-03-05 14:41] LABS: Red Blood Cells-Urine 0-5 SEEN /hpf (0-5)
--- NOTE | 2021-03-05 15:44 | PCM.RX.CS ---
Consult Pharmacy has been consulted to manage selected antiobiotic: Vancomycin Type of Consult: New start Suspected Infection: Osteomyelitis Prior Doses of Antibiotics Received/Current Regimen: Received 1250mg iv x 1 on 03.05.21. Labs: Sodium 136 mmol/L (136-145) 03/05/21 10:05 Potassium 3.7 mmol/L (3.5-5.1) 03/05/21 10:05 Chloride 104 mmol/L (98-107) 03/05/21 10:05 Carbon Dioxide 26.0 mmol/L (21.0-32.0) 03/05/21 10:05 Anion Gap 6 (5-15) 03/05/21 10:05 BUN 15 mg/dL (7-18) 03/05/21 10:05 Creatinine 0.99 mg/dL (0.70-1.30) 03/05/21 10:05 Est GFR (MDRD) Af Amer 98 mL/min (>60) 03/05/21 10:05 Est GFR (MDRD) Non-Af 81 mL/min (>60) 03/05/21 10:05 BUN/Creatinine Ratio 15.1 RATIO (10-20) 03/05/21 10:05 Glucose 223 mg/dL (74-106) H 03/05/21 10:05 Weight used for dosin.2 kg Estimated Creatinine Clearance: 81 ml/min Goal Trough: 15-20 mcg/mL Pharmacy Plan for Drug Dosing: Will begin 1500mg iv q12h starting 12 hrs after 1250mg initial dose. Trough level ordered for before 4th dose on 03.07.21. Pharmacy Service will continue to monitor and adjust dosing as required. Follow-Up Labs: Trough Vancomycin - 03.07.21 @0130 before 0200 dose
--- NOTE | 2021-03-05 15:52 | NURSING ---
Spoke with MRI staff, they will be coming up now to take patient for scan.
[2021-03-05 17:31] LABS: Bedside Glucose 105 mg/dL (70-110)
[2021-03-05] MEDS: oxyCODONE 5 MG Tablet PO (23:11)
[2021-03-05 23:36] LABS: Bedside Glucose 216 mg/dL (70-110)
[2021-03-06 02:13] VITALS: BP 108/60; PULSE 81; RESP 18; TEMP 36.8; O2SAT 94
[2021-03-06 02:26] LABS: Bedside Glucose 126 mg/dL (70-110)
[2021-03-06 05:54] LABS: Absolute Lymphocyte Count 1.41 X10^3/uL (0.83-4.51); Absolute Neutrophil Count 4.9 X10^3/uL (2.0-7.7); Basophil# 0.05 X10^3/uL; Basophil% 0.7 % (0-1); Eosinophil# 0.31 X10^3/uL; Eosinophils% 4.2 % (0-5); Hematocrit 39.7 % (40-54); Hemoglobin 12.9 g/dL (13.0-16.5); Lymphocyte # 1.41 X10^3/ul (0.83-4.51); Mean Corp Hgb Conc 32.5 g/dL (32-36); Mean Corpuscular Hgb 27.9 pg (27.0-32.0); Mean Corpuscular Volume 85.7 fL (80-94); Mean Platelet Vol. 9.1 fl (6.2-12.0); Monocyte# 0.74 X10^3/uL; Monocyte% 9.9 % (0-10); NRBC Flagged by Analyzer 0 % (0-5); Neutrophil # 4.92 X10^3/uL (2.7-7.7); Neutrophil % 66.1 % (47-70); Platelet Count 325 K/mm3 (150-450); RBC Distribution Width CV 13.2 % (11.6-14.6); RBC Distribution Width SD 41.5 fl (35.1-43.9); Red Blood Count 4.63 M/mm3 (4.6-6.2); White Blood Count 7.4 K/mm3 (4.4-11.0)
[2021-03-06 06:18] LABS: Anion Gap 4 (5-15); BUN 17 mg/dL (7-18); BUN/Creat Ratio 17.9 RATIO (10-20); Calcium,Total 8.5 mg/dL (8.5-10.1); Chloride 108 mmol/L (98-107); Creatinine, Serum 0.95 mg/dL (0.70-1.30); EST Glomerular Filtration Rate 85 mL/min (>60); Est Glom Filt Rate - Afr Amer 103 mL/min (>60); Estimated Creatinine Clearance 84.31 ml/min; Glucose 69 mg/dL (74-106); Magnesium 2.2 mg/dL (1.6-2.6); Potassium 3.7 mmol/L (3.5-5.1); Sodium Level 139 mmol/L (136-145)
[2021-03-06 07:05] LABS: Hemoglobin A1c 7.3 % (3.8-5.6)
[2021-03-06 08:15] VITALS: BP 106/59; PULSE 72; RESP 18; TEMP 36.3; O2SAT 96
[2021-03-06] MEDS: Enoxaparin 40 MG/0.4 ML Syringe SC (08:18)
[2021-03-06 08:45] LABS: Bedside Glucose 59 mg/dL (70-110)
--- NOTE | 2021-03-06 09:02 | PN_ITS ---
Subjective Subjective: Patient seen and examined resting comfortably. Patient denies any new pedal complaints. Patient denies any nausea, fever, chills, chest pain, shortness of breath, cough, streaking, purulence, vomiting. Objective Data Objective Data Vital Signs: Vital Signs Temp Pulse Resp BP Pulse Ox 98.3 F 81 18 108/60 94 03/06/21 02:13 03/06/21 02:13 03/06/21 02:13 03/06/21 02:13 03/06/21 02:13 Oxygen Delivery Method Room Air Weight: 85.2 kg Body Mass Index (BMI) 26.9 Finger Stick Blood Glucose 415 Intake & Output: Intake and Output for Last 24 Hours 03/04/21 03/05/21 03/06/21 23:59 23:59 23:59 Intake Total 875 / 875 1580 / 1580 Output Total 600 / 600 500 / 500 Balance 275 / 275 1080 / 1080 Lab / Micro Data Result Diagrams: 03/06/21 05:05 03/06/21 05:05 Labs: Laboratory Results - last 24 hr 03/05/21 03/05/21 03/05/21 10:05 10:05 10:05 WBC 10.9 RBC 4.41 L Hgb 12.5 L Hct 38.6 L MCV 87.5 MCH 28.3 MCHC 32.4 RDW Std Deviation 43.0 RDW Coeff of Cheri 13.5 Plt Count 319 MPV 9.0 Immature Gran % (Auto) 0.500 Neut % (Auto) 76.1 H Lymph % (Auto) 14.5 L [place] % (Auto) 7.0 Eos % (Auto) 1.6 Baso % (Auto) 0.3 Absolute Neuts (auto) 8.3 H Absolute Lymphs (auto) 1.58 Nucleated RBC % 0 ESR 50 H PT 13.2 INR 1.1 APTT 35.6 Sodium 136 Potassium 3.7 Chloride 104 Carbon Dioxide 26.0 Anion Gap 6 BUN 15 Creatinine 0.99 Estim Creat Clear Calc 80.91 Est GFR (MDRD) Af Amer 98 Est GFR (MDRD) Non-Af 81 BUN/Creatinine Ratio 15.1 Glucose 223 H Hemoglobin A1c Lactic Acid Calcium 8.4 L Phosphorus Magnesium Total Bilirubin 0.50 AST 16 ALT 17 Alkaline Phosphatase 106 C-React Prot Ext Range 93.70 H Total Protein 7.1 Albumin 2.6 L Globulin 4.5 H Albumin/Globulin Ratio 0.6 L Prealbumin Urine Color Urine Clarity Urine pH Ur Specific [place] Urine Protein Urine Glucose (UA) Urine Ketones Urine Occult Blood Urine Nitrite Urine Bilirubin Urine Urobilinogen Ur Leukocyte Esterase Urine RBC Urine WBC Ur Squamous Epith Cells Urine Bacteria Urine Mucus POC Glucose 03/05/21 03/05/21 03/05/21 10:05 10:05 12:55 WBC RBC Hgb Hct MCV MCH MCHC RDW Std Deviation RDW Coeff of Cheri Plt Count MPV Immature Gran % (Auto) Neut % (Auto) Lymph % (Auto) [place] % (Auto) Eos % (Auto) Baso % (Auto) Absolute Neuts (auto) Absolute Lymphs (auto) Nucleated RBC % ESR PT INR APTT Sodium Potassium Chloride Carbon Dioxide Anion Gap BUN Creatinine Estim Creat Clear Calc Est GFR (MDRD) Af Amer Est GFR (MDRD) Non-Af BUN/Creatinine Ratio Glucose Hemoglobin A1c Lactic Acid 1.0 Calcium Phosphorus 2.8 Magnesium Total Bilirubin AST ALT Alkaline Phosphatase C-React Prot Ext Range Total Protein Albumin Globulin Albumin/Globulin Ratio Prealbumin 11.0 L Urine Color Urine Clarity Urine pH Ur Specific [place] Urine Protein Urine Glucose (UA) Urine Ketones Urine Occult Blood Urine Nitrite Urine Bilirubin Urine Urobilinogen Ur Leukocyte Esterase Urine RBC Urine WBC Ur Squamous Epith Cells Urine Bacteria Urine Mucus POC Glucose 247 H 03/05/21 03/05/21 03/05/21 14:25 17:25 23:07 WBC RBC Hgb Hct MCV MCH MCHC RDW Std Deviation RDW Coeff of Cheri Plt Count MPV Immature Gran % (Auto) Neut % (Auto) Lymph % (Auto) [place] % (Auto) Eos % (Auto) Baso % (Auto) Absolute Neuts (auto) Absolute Lymphs (auto) Nucleated RBC % ESR PT INR APTT Sodium Potassium Chloride Carbon Dioxide Anion Gap BUN Creatinine Estim Creat Clear Calc Est GFR (MDRD) Af Amer Est GFR (MDRD) Non-Af BUN/Creatinine Ratio Glucose Hemoglobin A1c Lactic Acid Calcium Phosphorus Magnesium Total Bilirubin AST ALT Alkaline Phosphatase C-React Prot Ext Range Total Protein Albumin Globulin Albumin/Globulin Ratio Prealbumin Urine Color Yellow Urine Clarity Sl. Cloudy Urine pH 6.5 Ur Specific [place] 1.010 Urine Protein Negative Urine Glucose (UA) Normal Urine Ketones Negative Urine Occult Blood 50 H Urine Nitrite Negative Urine Bilirubin Negative Urine Urobilinogen 1 H Ur Leukocyte Esterase Negative Urine RBC 0-5 SEEN Urine WBC 0 SEEN Ur Squamous Epith Cells 0 SEEN Urine Bacteria 0 SEEN Urine Mucus 0 SEEN POC Glucose 105 216 H 03/06/21 03/06/21 03/06/21 02:20 05:05 05:05 WBC 7.4 RBC 4.63 Hgb 12.9 L Hct 39.7 L MCV 85.7 MCH 27.9 MCHC 32.5 RDW Std Deviation 41.5 RDW Coeff of Cheri 13.2 Plt Count 325 MPV 9.1 Immature Gran % (Auto) 0.100 Neut % (Auto) 66.1 Lymph % (Auto) 19.0 [place] % (Auto) 9.9 Eos % (Auto) 4.2 Baso % (Auto) 0.7 Absolute Neuts (auto) 4.9 Absolute Lymphs (auto) 1.41 Nucleated RBC % 0 ESR PT INR APTT Sodium 139 Potassium 3.7 Chloride 108 H Carbon Dioxide 27.0 Anion Gap 4 L BUN 17 Creatinine 0.95 Estim Creat Clear Calc 84.31 Est GFR (MDRD) Af Amer 103 Est GFR (MDRD) Non-Af 85 BUN/Creatinine Ratio 17.9 Glucose 69 L Hemoglobin A1c Lactic Acid Calcium 8.5 Phosphorus Magnesium 2.2 Total Bilirubin AST ALT Alkaline Phosphatase C-React Prot Ext Range Total Protein Albumin Globulin Albumin/Globulin Ratio Prealbumin Urine Color Urine Clarity Urine pH Ur Specific [place] Urine Protein Urine Glucose (UA) Urine Ketones Urine Occult Blood Urine Nitrite Urine Bilirubin Urine Urobilinogen Ur Leukocyte Esterase Urine RBC Urine WBC Ur Squamous Epith Cells Urine Bacteria Urine Mucus POC Glucose 126 H 03/06/21 03/06/21 05:05 08:16 WBC RBC Hgb Hct MCV MCH MCHC RDW Std Deviation RDW Coeff of Cheri Plt Count MPV Immature Gran % (Auto) Neut % (Auto) Lymph % (Auto) [place] % (Auto) Eos % (Auto) Baso % (Auto) Absolute Neuts (auto) Absolute Lymphs (auto) Nucleated RBC % ESR PT INR APTT Sodium Potassium Chloride Carbon Dioxide Anion Gap BUN Creatinine Estim Creat Clear Calc Est GFR (MDRD) Af Amer Est GFR (MDRD) Non-Af BUN/Creatinine Ratio Glucose Hemoglobin A1c 7.3 H Lactic Acid Calcium Phosphorus Magnesium Total Bilirubin AST ALT Alkaline Phosphatase C-React Prot Ext Range Total Protein Albumin Globulin Albumin/Globulin Ratio Prealbumin Urine Color Urine Clarity Urine pH Ur Specific [place] Urine Protein Urine Glucose (UA) Urine Ketones Urine Occult Blood Urine Nitrite Urine Bilirubin Urine Urobilinogen Ur Leukocyte Esterase Urine RBC Urine WBC Ur Squamous Epith Cells Urine Bacteria Urine Mucus POC Glucose 59 L Radiography Diagnostic Testing: Radiology Impression Chest X-Ray 03/05/21 11:42 IMPRESSION: Hyperinflation. The lungs are clear. Electronically Signed: Gustavo Lezama MD at 12:29 EDT , Service support , Lower Extremity MRI 03/05/21 12:41 IMPRESSION: 1. Mild to moderate osteomyelitis on the plantar aspect of the posterior process of the calcaneus. Large soft tissue heel ulcer/wound. Electronically Signed: Greg Ferrari MD at 8:20 EDT , Service support , Physical Exam Const alert and no apparent distress General Appearance: cooperative and comfortable Resp normal respiratory effort Effort and Inspection: able to speak in complete sentences Extremity normal capillary refill and no calf tenderness General Extremity: Negative for clubbing or cyanosis Skin General Skin Exam: Negative for ecchymosis, eschar, pallor or dermatitis Rashes: no rashes Wounds: wounds noted Wound Narrative: ulcers noted to left plantar heel Wound VAC is in place with good seal with outer dressing clean dry and intact. Digits are cool to the touch. Capillary refill time is intact. Dorsalis pedis pulse diminished upon exam through dressing. Neuro Sensory Exam: extremities light-touch: decreased Motor Exam: strength abnormal other (4/5 to all pedal muscle groups. Noted history of Achilles rupture left lower extremity with decreased muscle strength noted.) Psych Appearance: appropriate Attitude: calm Assessment & Plan Assessment/Plan (1) Non-pressure chronic ulcer of other part of left foot with necrosis of bone: (2) Type 2 diabetes mellitus with diabetic polyneuropathy: QUALIFIERS: Diabetes mellitus senior living insulin use: without terminal carman use Qualified Code(s): E11.42 - Type 2 diabetes mellitus with diabetic polyneuropathy (3) Calcaneal gait: (4) Osteomyelitis: QUALIFIERS: Laterality: left Osteomyelitis location: foot Osteomyelitis type: unspecified type Qualified Code(s): M86.9 - Osteomyelitis, unspecified (5) Achilles rupture, left: QUALIFIERS: Encounter type: subsequent encounter Qualified Code(s): S86.012D - Strain of left Achilles tendon, subsequent encounter PLAN: Patient seen and evaluated bedside. Patient is noted patient of Dr. Calloway is at the wound care center. Patient has been seen by me previously in the hospital setting. Upon discussion with Dr. Calloway as well as chart review is noted the patient was improving was going to hyperbaric oxygen therapy as well as regular wound care appointments for treatment of left plantar heel ulceration. Patient was noted to have worsened on Monday. Patient had labs cultures x-ray obtained on 03/03/2021 and was instructed go to hospital at that time. Patient was started on Bactrim. With worsening of his infection and status to his left heel ulcer it is noted that Dr. Lebron had a discussion with the patient as to regards to treatment options including debridement, antibiotics, or amputation. He is at high risk for a leg amputation. Patient labs reviewed Hemoglobin A1c was last obtained 12/08/2020 with a result of 8.9% Culture obtained 03/03/2021 from the left heel is showing staph aureus as well as gram-negative anselmo. We will continue to follow results. Blood cultures from 03/05/2021 are pending. Patient has a history of osteomyelitis to his left calcaneus which was previously treated with IV antibiotics. He has since finished this course Recommend patient see laundry washer while in house. Recommend Edy supplementation. His noninvasive vascular studies 10/28/2020 were reviewed with triphasic PT and DP pulses bilateral.? His right NADIA is 1.12 and left 1.16.? His toe brachial index is 1.12 on the right and 1.34 on the left.? There is no significant segmental pressure drop and therefore no arterial occlusive lesion is suspected. Patient last had a MRI of his left foot on 12/09/2020 which demonstrated increased osteomyelitis of his calcaneus compared to previous MRI study. Given his history and worsening of wound a recommend a repeat MRI to assess current status. MRI 03/05/2020 one of the left lower extremity demonstrated mild to moderate osteomyelitis of the plantar aspect of the posterior process of the calcaneus. Large soft tissue heel ulcer wound noted. The MRI results obtained 03/05/2021 showed no significant interval change from previous MRI obtained 12/09/2020 of which patient has completed a course of antibiotics per infectious disease for treatment of the osteomyelitis between these 2 MRIs Reviewed with the patient the importance of offloading the area, proper blood sugar control, proper nutrition, importance of remaining a non-smoker, proper wound care, and proper infection control in order to best optimize himself for healing. Patient relates that he only walks on his toes and does not put any weight through his heel. Recommend resuming wound VAC therapy while in house. This was discussed with wound care nurse. To apply wound VAC to the left heel at 150 mmHg low continuous pressure. Patient has previously used wound VAC therapy with some success. He relates he still has the wound VAC at home. He relates that he went on a wound VAC break due to maceration a 2 weeks ago Reviewed results of the MRI with the patient. Discussed various treatment options including antibiotics, wound care, surgical debridement, amputation. Discussed all risks, benefits, alternatives, complications, pros, cons of all treatment options in length with the patient. Patient was visibly upset by the end of conversation. Direct not recommend moving forward quickly at this time so patient has time to process and consider all options appropriately before officially moving forward with that treatment plan. Especially as at this current time patient is leaning toward an BKA amputation. Patient has had discussion with Dr. Calloway in the past as far as worsening of the wound and his options. It is noted that patient had similar discussion with Dr. De Leon yesterday of infectious disease patient told Dr. Duran to go forward with a below-knee amputation. I again had a conversation with the patient and he is still on board for an amputation. This does not need to be done while he is in- house and can be further worked up as an outpatient basis if this is more convenient. Recommend following infectious disease antibiotic antibiotic recommendations. If moving forward with amputation option would appreciate input as far as antibiotic bridging necessary to surgery especially if doing surgery as an outpatient basis All questions were answered. Podiatry will continue to follow. Podiatry will continue to follow. Please feel free to reach out if any questions or concerns. Edie Armendariz DPM [facility] [phone] This note was generated with Fluidation software. It may contain incorrect words, spelling, and punctuation that were not noted in checking the note before signing.
--- NOTE | 2021-03-06 09:55 | CASEMGMT ---
SALMA MCCAULEY Assessment: Face to Face with pt for initial transition planning/care coordination assessment. SALMA MCCAULEY introduced self and role at [facility], pt voices understanding and consents to assessment. Pt is A/O x4 and answers all questions appropriately at this time. Pt lying in bed in no distress. Care providers, pharmacy, and demographics verified/updated. Admitting Dx: infected L heel wound PCP: Pt states he has previously seen Dr. Horton but did not follow up. Plans to see her again. Denies need for PCP list. Specialists: Elli, [facility]iat[facility] Preferred [facility]acy: [facility] Insurance: [facility] Prescription Benefit: yes LW/HPOA: Pt denies having a LW/DPOA. LNOK: Alondra Merritt, friend Living Arrangements: Pt lives alone in a ground apt with no steps to enter. Pt reports he is I in ADL's. Denies concerns at home. Transportation: Pt drives self. Denies concerns with transportation. DME/HHC/SNF: Pt has a walker, w/c, cane, shower seat and walk in shower. States he is active with [facility] with nursing and he is not sure if it is also PT or OT. Pt has been in [place]. Pt states no concerns with going home at time of dc. He would like his HHC to continue. Pt became tearful as he states he may get his foot amputated. Pt states no further concerns/needs. CM to follow. Advised pt to ask CM if any further question/concerns/needs arise, voices understanding. Pt Goal: Home with resumption of HHC. Plan: Home with resumption of HHC, follow for IV antibiotics.
[2021-03-06 10:53] VITALS: O2SAT 91
--- NOTE | 2021-03-06 11:01 | PCM.PN.HOSP ---
Subjective Subjective: MRI of left foot shows mild to moderate osteomyelitis of posterior pole process of calcaneus with a large soft tissue heel ulcer. No fever or chills. Heart rate and blood pressure controlled. Objective Data Objective Data Vital Signs: Vital Signs Temp Pulse Resp BP Pulse Ox 97.4 F L 72 18 106/59 L 91 03/06/21 08:15 03/06/21 08:15 03/06/21 08:15 03/06/21 08:15 03/06/21 10:53 Oxygen Delivery Method Room Air Weight: 187 lb 13.341 oz Body Mass Index (BMI) 26.9 Finger Stick Blood Glucose 415 Intake & Output: Intake and Output for Last 24 Hours 03/04/21 03/05/21 03/06/21 23:59 23:59 23:59 Intake Total 875 / 875 1580 / 1580 Output Total 600 / 600 500 / 500 Balance 275 / 275 1080 / 1080 Lab / Micro Data Result Diagrams: 03/06/21 05:05 03/06/21 05:05 Labs: Laboratory Results - last 24 hr 03/05/21 03/05/21 03/05/21 10:05 12:55 14:25 WBC RBC Hgb Hct MCV MCH MCHC RDW Std Deviation RDW Coeff of Cheri Plt Count MPV Immature Gran % (Auto) Neut % (Auto) Lymph % (Auto) [place] % (Auto) Eos % (Auto) Baso % (Auto) Absolute Neuts (auto) Absolute Lymphs (auto) Nucleated RBC % Sodium Potassium Chloride Carbon Dioxide Anion Gap BUN Creatinine Estim Creat Clear Calc Est GFR (MDRD) Af Amer Est GFR (MDRD) Non-Af BUN/Creatinine Ratio Glucose Hemoglobin A1c Calcium Phosphorus 2.8 Magnesium Prealbumin 11.0 L Urine Color Yellow Urine Clarity Sl. Cloudy Urine pH 6.5 Ur Specific Maurice 1.010 Urine Protein Negative Urine Glucose (UA) Normal Urine Ketones Negative Urine Occult Blood 50 H Urine Nitrite Negative Urine Bilirubin Negative Urine Urobilinogen 1 H Ur Leukocyte Esterase Negative Urine RBC 0-5 SEEN Urine WBC 0 SEEN Ur Squamous Epith Cells 0 SEEN Urine Bacteria 0 SEEN Urine Mucus 0 SEEN POC Glucose 247 H 03/05/21 03/05/21 03/06/21 17:25 23:07 02:20 WBC RBC Hgb Hct MCV MCH MCHC RDW Std Deviation RDW Coeff of Cheri Plt Count MPV Immature Gran % (Auto) Neut % (Auto) Lymph % (Auto) [place] % (Auto) Eos % (Auto) Baso % (Auto) Absolute Neuts (auto) Absolute Lymphs (auto) Nucleated RBC % Sodium Potassium Chloride Carbon Dioxide Anion Gap BUN Creatinine Estim Creat Clear Calc Est GFR (MDRD) Af Amer Est GFR (MDRD) Non-Af BUN/Creatinine Ratio Glucose Hemoglobin A1c Calcium Phosphorus Magnesium Prealbumin Urine Color Urine Clarity Urine pH Ur Specific [place] Urine Protein Urine Glucose (UA) Urine Ketones Urine Occult Blood Urine Nitrite Urine Bilirubin Urine Urobilinogen Ur Leukocyte Esterase Urine RBC Urine WBC Ur Squamous Epith Cells Urine Bacteria Urine Mucus POC Glucose 105 216 H 126 H 03/06/21 03/06/21 03/06/21 05:05 05:05 05:05 WBC 7.4 RBC 4.63 Hgb 12.9 L Hct 39.7 L MCV 85.7 MCH 27.9 MCHC 32.5 RDW Std Deviation 41.5 RDW Coeff of Cheri 13.2 Plt Count 325 MPV 9.1 Immature Gran % (Auto) 0.100 Neut % (Auto) 66.1 Lymph % (Auto) 19.0 [place] % (Auto) 9.9 Eos % (Auto) 4.2 Baso % (Auto) 0.7 Absolute Neuts (auto) 4.9 Absolute Lymphs (auto) 1.41 Nucleated RBC % 0 Sodium 139 Potassium 3.7 Chloride 108 H Carbon Dioxide 27.0 Anion Gap 4 L BUN 17 Creatinine 0.95 Estim Creat Clear Calc 84.31 Est GFR (MDRD) Af Amer 103 Est GFR (MDRD) Non-Af 85 BUN/Creatinine Ratio 17.9 Glucose 69 L Hemoglobin A1c 7.3 H Calcium 8.5 Phosphorus Magnesium 2.2 Prealbumin Urine Color Urine Clarity Urine pH Ur Specific [place] Urine Protein Urine Glucose (UA) Urine Ketones Urine Occult Blood Urine Nitrite Urine Bilirubin Urine Urobilinogen Ur Leukocyte Esterase Urine RBC Urine WBC Ur Squamous Epith Cells Urine Bacteria Urine Mucus POC Glucose 03/06/21 08:16 WBC RBC Hgb Hct MCV MCH MCHC RDW Std Deviation RDW Coeff of Cheri Plt Count MPV Immature Gran % (Auto) Neut % (Auto) Lymph % (Auto) [place] % (Auto) Eos % (Auto) Baso % (Auto) Absolute Neuts (auto) Absolute Lymphs (auto) Nucleated RBC % Sodium Potassium Chloride Carbon Dioxide Anion Gap BUN Creatinine Estim Creat Clear Calc Est GFR (MDRD) Af Amer Est GFR (MDRD) Non-Af BUN/Creatinine Ratio Glucose Hemoglobin A1c Calcium Phosphorus Magnesium Prealbumin Urine Color Urine Clarity Urine pH Ur Specific [place] Urine Protein Urine Glucose (UA) Urine Ketones Urine Occult Blood Urine Nitrite Urine Bilirubin Urine Urobilinogen Ur Leukocyte Esterase Urine RBC Urine WBC Ur Squamous Epith Cells Urine Bacteria Urine Mucus POC Glucose 59 L Micro: Microbiology 03/05/21 10:10 Blood Culture (Wb) - Femoral Artery Blood Culture - Preliminary Radiography Diagnostic Testing: Radiology Impression Chest X-Ray 03/05/21 11:42 IMPRESSION: Hyperinflation. The lungs are clear. Electronically Signed: Gustavo Lezama MD at 12:29 EDT , Service support , Lower Extremity MRI 03/05/21 12:41 IMPRESSION: 1. Mild to moderate osteomyelitis on the plantar aspect of the posterior process of the calcaneus. Large soft tissue heel ulcer/wound. Electronically Signed: Greg Ferrari MD at 8:20 EDT , Service support , Physical Exam Narrative General: Alert, Oriented x3, Cooperative HEENT: Atraumatic, PERRLA, EOMI, Normocephalic Oral: No Gingival or Mucosal Lesions/ Ulcerations Neck: Supple, No JVD, Negative Carotid Bruits Lungs: Air entry diminished in bilateral lung bases. No crepitation/rhonchi Cardiovascular: Regular rate, Regular Rhythm, Normal S1, Normal S2, No murmurs Abdomen: Bowel Sounds Present, Soft, Non Tender, Non-Distended : No renal angle tenderness. No suprapubic tenderness. Extremities: Mild left foot edema, Capillary Refill Less than 3 Seconds Skin: Left heel deep ulcer, oval in shape. Wound VAC applied. Diabetic ulcer Musculoskeletal: No Tenderness to Palpation of Joints or Extremities Neurological: Decreased gross sensation over left foot and heel. Left great toe position sense intact. Deep Tendon Reflexes 2+/4 Psych/Mental Status: Normal Affect, Appropriate. Assessment & Plan Assessment/Plan (1) 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: (2) Type 2 diabetes mellitus with diabetic polyneuropathy: QUALIFIERS: Diabetes mellitus fpc insulin use: without fpc use Qualified Code(s): E11.42 - Type 2 diabetes mellitus with diabetic polyneuropathy PLAN: 60-year-old male came to ED with left heel nonhealing ulcer, worsening. 1. Left heel diabetic ulcer with slough and necrosis at base: Patient is being admitted on [facility] floor. 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 MRI left foot ordered. Started on IV Unasyn and vancomycin. Previous wound culture shows Proteus mirabilis, MRSA,Morganella, anaerobic cocci strep group B. Species noted multiple organisms. Wound culture from 03/03, preliminary shows staph aureus and gram-negative anselmo. Blood culture has been ordered from ER. Lactic acid normal. No leukocytosis. CRP and ESR elevated. 03/06: MRI left foot discussed shows mild to moderate osteomyelitis of posterior process of calcaneus not different from previous MRI of 12/09/2020 when he completed IV antibiotics. Noninvasive vascular study on 09/2020 showed triphasic PT and DP pulses with right NADIA 1.12 and left NADIA 1.16. No significant segmental pressure drop. Seen by ID and antibiotic changed to vancomycin and Zosyn as culture showed gram-negative anselmo and stent to Unasyn in recent past. Patient is interested in BKA if needed. Moderate protein calorie malnutrition: Prealbumin is low at 11.0. Magnesium and phosphorus in normal range. On Edy supplement. Laundry Folder consult. 2. Diabetes mellitus type 2 with diabetic neuropathy: A1c tomorrow a.m. Accu-Chek before meals and at bedtime cover with Humalog sliding scale. On home dose of Lantus and short-acting insulin A1c 7.3. Patient had hypoglycemia episode in the morning 59. Repeat Accu-Cheks ordered 3. COPD with history of pulmonary embolism in the past: Currently patient is not on anticoagulant agent. 4. History of rheumatoid arthritis, and osteomyelitis in the past: PT OT ordered. Laundry Folder consult. VTE prophylaxis: Lovenox 40 mg subcu daily. Discontinue if platelet count drops less than 50,000 or hemoglobin less than 8 g% Microbiology Past 72 Hours 03/05/21 10:10 Blood Culture (Wb) - Femoral Artery Blood Culture - Preliminary Laboratory Results 03/05/21 10:05: Phosphorus 2.8, Prealbumin 11.0 L 03/05/21 12:55: POC Glucose 247 H 03/05/21 14:25: Urine Color Yellow, Urine Clarity Sl. Cloudy, Urine pH 6.5, Ur Specific [place] 1.010, Urine Protein Negative, Urine Glucose (UA) Normal, Urine Ketones Negative, Urine Occult Blood 50 H, Urine Nitrite Negative, Urine Bilirubin Negative, Urine Urobilinogen 1 H, Ur Leukocyte Esterase Negative, Urine RBC 0-5 SEEN, Urine WBC 0 SEEN, Ur Squamous Epith Cells 0 SEEN, Urine Bacteria 0 SEEN, Urine Mucus 0 SEEN 03/05/21 17:25: POC Glucose 105 03/05/21 23:07: POC Glucose 216 H 03/06/21 02:20: POC Glucose 126 H 03/06/21 05:05: WBC 7.4, RBC 4.63, Hgb 12.9 L, Hct 39.7 L, MCV 85.7, MCH 27.9, MCHC 32.5, RDW Std Deviation 41.5, RDW Coeff of Cheri 13.2, Plt Count 325, MPV 9.1, Immature Gran % (Auto) 0.100, Neut % (Auto) 66.1, Lymph % (Auto) 19.0, [place] % (Auto) 9.9, Eos % (Auto) 4.2, Baso % (Auto) 0.7, Absolute Neuts (auto) 4.9, Absolute Lymphs (auto) 1.41, Nucleated RBC % 0 03/06/21 05:05: Sodium 139, Potassium 3.7, Chloride 108 H, Carbon Dioxide 27.0, Anion Gap 4 L, BUN 17, Creatinine 0.95, Estim Creat Clear Calc 84.31, Est GFR (MDRD) Af Amer 103, Est GFR (MDRD) Non-Af 85, BUN/Creatinine Ratio 17.9, Glucose 69 L, Calcium 8.5, Magnesium 2.2 03/06/21 05:05: Hemoglobin A1c 7.3 H 03/06/21 08:16: POC Glucose 59 L Clinical Impression(s) from Imaging Studies Chest X-Ray 03/05/21 11:42 IMPRESSION: Hyperinflation. The lungs are clear. Lower Extremity MRI 03/05/21 12:41 IMPRESSION: 1. Mild to moderate osteomyelitis on the plantar aspect of the posterior process of the calcaneus. Large soft tissue heel ulcer/wound. Electronically Signed: Greg Ferrari MD at 8:20 EDT , Service support , Visit Charges Inpatient E&M: [id number] Subs Hosp L2
[2021-03-06 11:50] LABS: Bedside Glucose 222 mg/dL (70-110)
[2021-03-06] MEDS: Insulin Lispro 100 UNIT/ML INSULN.PEN 10 UNIT SC (12:00)
[2021-03-06] MEDS: Insulin Lispro 100 UNIT/ML INSULN.PEN SC (12:01)
[2021-03-06 14:15] VITALS: BP 123/61; PULSE 81; RESP 18; TEMP 36.6; O2SAT 98
[2021-03-06 16:51] LABS: Bedside Glucose 107 mg/dL (70-110)
[2021-03-06] MEDS: 0.9% Saline Lock 10 ML Syringe IV (21:56)
[2021-03-06 22:11] VITALS: BP 105/58; PULSE 75; RESP 18; TEMP 36.5; O2SAT 95
[2021-03-06] MEDS: oxyCODONE 5 MG Tablet PO (22:19)
[2021-03-06 23:16] LABS: Bedside Glucose 219 mg/dL (70-110)
[2021-03-07 02:35] LABS: Vancomycin, Trough Level 16.8 ug/mL (5.0-15.0)
[2021-03-07 02:51] VITALS: BP 113/72; PULSE 61; RESP 16; TEMP 36.7; O2SAT 97
--- NOTE | 2021-03-07 06:59 | PCM.RX.CS ---
Consult Pharmacy has been consulted to manage selected antiobiotic: Vancomycin Type of Consult: Follow-up Prior Doses of Antibiotics Received/Current Regimen: Medications Vancomycin HCl 1,500 mg/ (Sodium Chloride) 530 mls @ 250 mls/hr IV Q12H TEDDY Last Admin: 03/07/21 05:00 Dose: Infused Documented by: Labs: Sodium 139 mmol/L (136-145) 03/06/21 05:05 Potassium 3.7 mmol/L (3.5-5.1) 03/06/21 05:05 Chloride 108 mmol/L (98-107) H 03/06/21 05:05 Carbon Dioxide 27.0 mmol/L (21.0-32.0) 03/06/21 05:05 Anion Gap 4 (5-15) L 03/06/21 05:05 BUN 17 mg/dL (7-18) 03/06/21 05:05 Creatinine 0.95 mg/dL (0.70-1.30) 03/06/21 05:05 Est GFR (MDRD) Af Amer 103 mL/min (>60) 03/06/21 05:05 Est GFR (MDRD) Non-Af 85 mL/min (>60) 03/06/21 05:05 BUN/Creatinine Ratio 17.9 RATIO (10-20) 03/06/21 05:05 Glucose 69 mg/dL (74-106) L 03/06/21 05:05 Vancomycin Trough 16.8 ug/mL (5.0-15.0) H 03/07/21 01:45 Microbiology: Microbiology 03/05/21 10:10 Blood Culture (Wb) - Femoral Artery Blood Culture - Preliminary Staphylococcus aureus Goal Trough: 15-20 mcg/mL Pharmacy Plan for Drug Dosing: Trough in goal range. Recheck in 4 days per policy. Pharmacy Service will continue to monitor and adjust dosing as required. Follow-Up Labs: Trough Vancomycin - 03/11 @ 1330
[2021-03-07 07:11] VITALS: O2SAT 96
[2021-03-07 08:35] LABS: Bedside Glucose 163 mg/dL (70-110)
[2021-03-07] MEDS: Insulin Lispro 100 UNIT/ML INSULN.PEN SC ×2 (08:36→12:01)
[2021-03-07] MEDS: Insulin Lispro 100 UNIT/ML INSULN.PEN 10 UNIT SC (08:37)
[2021-03-07] MEDS: Enoxaparin 40 MG/0.4 ML Syringe SC (08:38)
[2021-03-07 08:42] VITALS: BP 125/68; PULSE 82; RESP 18; TEMP 37.1; O2SAT 98
--- NOTE | 2021-03-07 09:53 | PN_ITS ---
Subjective Subjective: Patient seen bedside. Patient is visibly upset upon further discussion about his options either save the leg or undergo an amputation. Patient has concerns about if the wound would never heal if he tries to save it. Patient denies any nausea fever vomiting chills chest pain shortness of breath. He relates that his foot pain has resolved since being in the hospital. Objective Data Objective Data Vital Signs: Vital Signs Temp Pulse Resp BP Pulse Ox 98.7 F 82 18 125/68 H 98 03/07/21 08:42 03/07/21 08:42 03/07/21 08:42 03/07/21 08:42 03/07/21 08:42 Oxygen Delivery Method Room Air Weight: 85.2 kg Body Mass Index (BMI) 26.9 Finger Stick Blood Glucose 415 Intake & Output: Intake and Output for Last 24 Hours 03/05/21 03/06/21 03/07/21 23:59 23:59 23:59 Intake Total 875 / 875 3260 / 3260 780 / 780 Output Total 600 / 600 500 / 2100 2400 / 2400 Balance 275 / 275 2760 / 1160 -1620 / -1620 Lab / Micro Data Result Diagrams: 03/06/21 05:05 03/06/21 05:05 Labs: Laboratory Results - last 24 hr 03/05/21 03/06/21 03/06/21 14:25 11:36 16:41 Urine Color Yellow Urine Clarity Sl. Cloudy Urine pH 6.5 Ur Specific [place] 1.010 Urine Protein Negative Urine Glucose (UA) Normal Urine Ketones Negative Urine Occult Blood 50 H Urine Nitrite Negative Urine Bilirubin Negative Urine Urobilinogen 1 H Ur Leukocyte Esterase Negative Urine RBC 0-5 SEEN Urine WBC 0 SEEN Ur Squamous Epith Cells 0 SEEN Urine Bacteria 0 SEEN Urine Mucus 0 SEEN Vancomycin Trough POC Glucose 222 H 107 03/06/21 03/07/21 03/07/21 22:15 01:45 08:13 Urine Color Urine Clarity Urine pH Ur Specific [place] Urine Protein Urine Glucose (UA) Urine Ketones Urine Occult Blood Urine Nitrite Urine Bilirubin Urine Urobilinogen Ur Leukocyte Esterase Urine RBC Urine WBC Ur Squamous Epith Cells Urine Bacteria Urine Mucus Vancomycin Trough 16.8 H POC Glucose 219 H 163 H Micro: Microbiology 03/05/21 10:05 Blood Culture (Wb) - Femoral Artery Blood Culture - Preliminary No growth in 48 hours. 03/05/21 10:10 Blood Culture (Wb) - Femoral Artery Blood Culture - Preliminary Staphylococcus aureus Physical Exam Const alert Constitutional Narrative: Visibly upset upon discussion of amputation versus limb salvage General Appearance: cooperative and comfortable Resp normal respiratory effort Effort and Inspection: able to speak in complete sentences Extremity normal capillary refill and no calf tenderness General Extremity: Negative for clubbing or cyanosis Skin General Skin Exam: Negative for ecchymosis, eschar, pallor or dermatitis Rashes: no rashes Wounds: wounds noted Wound Narrative: ulcers noted to left plantar heel Wound VAC is in place with good seal with outer dressing clean dry and intact. Digits are cool to the touch. Capillary refill time is intact. Dorsalis pedis pulse diminished upon exam through dressing. Neuro Sensory Exam: extremities light-touch: decreased Motor Exam: strength abnormal other (4/5 to all pedal muscle groups. 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 Patient is noted patient of Dr. Calloway is at the wound care center. Patient has been seen by me previously in the hospital setting. Upon discussion with Dr. Calloway as well as chart review is noted the patient was improving was going to hyperbaric oxygen therapy as well as regular wound care appointments for treatment of left plantar heel ulceration. Patient was noted to have worsened on Monday. Patient had labs cultures x-ray obtained on 03/03/2021 and was instructed go to hospital at that time. Patient was started on Bactrim. With worsening of his infection and status to his left heel ulcer it is noted that Dr. Calloway had a discussion with the patient as to regards to treatment options including debridement, antibiotics, or amputation. He is at high risk for a leg amputation. Patient labs reviewed Hemoglobin A1c was last obtained 12/08/2020 with a result of 8.9% Culture obtained 03/03/2021 from the left heel is showing MRSA, Proteus Mirabilis, Morganella Morganni Blood cultures from 03/05/2021 are positive for staph aureus. Patient has a history of osteomyelitis to his left calcaneus which was previously treated with IV antibiotics. He has since finished this course Recommend patient see clinical associate while in house. Recommend [facility] entation. His noninvasive vascular studies 10/28/2020 were reviewed with triphasic PT and DP pulses bilateral.? His right NADIA is 1.12 and left 1.16.? His toe brachial index is 1.12 on the right and 1.34 on the left.? There is no significant segmental pressure drop and therefore no arterial occlusive lesion is suspected. Patient last had a MRI of his left foot on 12/09/2020 which demonstrated incr eased osteomyelitis of his calcaneus compared to previous MRI study. Given his history and worsening of wound a recommend a repeat MRI to assess current status. MRI 03/05/2020 one of the left lower extremity demonstrated mild to moderate osteomyelitis of the plantar aspect of the posterior process of the calcaneus. Large soft tissue heel ulcer wound noted. The MRI results obtained 03/05/2021 showed no significant interval change from previous MRI obtained 12/09/2020 of which patient has completed a course of antibiotics per infectious disease for treatment of the osteomyelitis between these 2 MRIs Reviewed with the patient the importance of offloading the area, proper blood sugar control, proper nutrition, importance of remaining a non-smoker, proper wound care, and proper infection control in order to best optimize himself for healing. Patient relates that he only walks on his toes and does not put any weight through his heel. Recommend resuming wound VAC therapy while in house. This was discussed with wound care nurse. To apply wound VAC to the left heel at 150 mmHg low continu ous pressure. Patient has previously used wound VAC therapy with some success. He relates he still has the wound VAC at home. He relates that he went on a wound VAC break due to maceration a 2 weeks ago I again reviewed results of the MRI with the patient. Discussed various treatment options including antibiotics, wound care, surgical debridement, amputation. Discussed all risks, benefits, alternatives, complications, pros, cons of all treatment options in length with the patient. Patient was visibly upset by the end of conversation. Patient expresses desire to try to save the limb if at all possible with me today. Patient shows concern about the wound ever being able to heal and is getting second going to the [facility] doctors appointments. He states that if there is no hope of the wound healing that he would rather just cut it off but is visibly upset at this option. I do not recommend moving forward quickly at this time so patient has time to process and consider all options appropriately before officially moving forward with that treatment plan. Discussed with the patient that if he wishes to try to save his limb that he would likely be undergoing another course of IV antibiotics with continued wound care and hyperbaric oxygen therapy. Patient is fearful of having to go back to a penitentiary and would rather have an amputation then go back to at the penitentiary. If patient wishes to pursue a below-knee amputation this does not need to be done while he is in-house and can be further worked up as an outpatient basis if this is more convenient. If we would like to move forward with this option while in house referral to surgeon would need to be placed. Recommend following infectious disease antibiotic antibiotic recommendations. All questions were answered. Podiatry will continue to follow. Podiatry will continue to follow. Please feel free to reach out if any questions or concerns. Edie Armendariz DPM [facility] [phone] This note was generated with Prelert dictation software. It may contain incorrect words, spelling, and punctuation that were not noted in checking the note before signing.
--- NOTE | 2021-03-07 11:04 | PN.HOSP_ITS ---
Subjective Subjective: Patient looks sad and crying in the morning. I gave update about his disease and diagnosis, IV antibiotics and educational therapist input. No fever or chills. Objective Data Objective Data Vital Signs: Vital Signs Temp Pulse Resp BP Pulse Ox 98.7 F 82 18 125/68 H 98 03/07/21 08:42 03/07/21 08:42 03/07/21 08:42 03/07/21 08:42 03/07/21 08:42 Oxygen Delivery Method Room Air Weight: 187 lb 13.341 oz Body Mass Index (BMI) 26.9 Finger Stick Blood Glucose 415 Intake & Output: Intake and Output for Last 24 Hours 03/05/21 03/06/21 03/07/21 23:59 23:59 23:59 Intake Total 875 / 875 3260 / 3260 780 / 780 Output Total 600 / 600 500 / 2100 2400 / 2400 Balance 275 / 275 2760 / 1160 -1620 / -1620 Lab / Micro Data Result Diagrams: 03/06/21 05:05 03/06/21 05:05 Labs: Laboratory Results - last 24 hr 03/05/21 03/06/21 03/06/21 14:25 11:36 16:41 Urine Color Yellow Urine Clarity Sl. Cloudy Urine pH 6.5 Ur Specific [place] 1.010 Urine Protein Negative Urine Glucose (UA) Normal Urine Ketones Negative Urine Occult Blood 50 H Urine Nitrite Negative Urine Bilirubin Negative Urine Urobilinogen 1 H Ur Leukocyte Esterase Negative Urine RBC 0-5 SEEN Urine WBC 0 SEEN Ur Squamous Epith Cells 0 SEEN Urine Bacteria 0 SEEN Urine Mucus 0 SEEN Vancomycin Trough POC Glucose 222 H 107 03/06/21 03/07/21 03/07/21 22:15 01:45 08:13 Urine Color Urine Clarity Urine pH Ur Specific [place] Urine Protein Urine Glucose (UA) Urine Ketones Urine Occult Blood Urine Nitrite Urine Bilirubin Urine Urobilinogen Ur Leukocyte Esterase Urine RBC Urine WBC Ur Squamous Epith Cells Urine Bacteria Urine Mucus Vancomycin Trough 16.8 H POC Glucose 219 H 163 H Micro: Microbiology 03/05/21 10:05 Blood Culture (Wb) - Femoral Artery Blood Culture - Preliminary No growth in 48 hours. 03/05/21 10:10 Blood Culture (Wb) - Femoral Artery Blood Culture - Preliminary Staphylococcus aureus Physical Exam Narrative General: Alert, Oriented x3, Cooperative HEENT: Atraumatic, PERRLA, EOMI, Normocephalic Oral: No Gingival or Mucosal Lesions/ Ulcerations Neck: Supple, No JVD, Negative Carotid Bruits Lungs: Air entry diminished in bilateral lung bases. No crepitation/rhonchi Cardiovascular: Regular rate, Regular Rhythm, Normal S1, Normal S2, No murmurs Abdomen: Bowel Sounds Present, Soft, Non Tender, Non-Distended : No renal angle tenderness. No suprapubic tenderness. Extremities: Mild left foot edema, Capillary Refill Less than 3 Seconds Skin: Left heel deep ulcer, oval in shape. Wound VAC applied. Diabetic ulcer Musculoskeletal: No Tenderness to Palpation of Joints or Extremities Neurological: Decreased gross sensation over left foot and heel. Left great toe position sense intact. Psych/Mental Status: Sad. 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 1. Left heel diabetic ulcer with slough and necrosis at base: Patient is being admitted on [facility] floor. ID, educational therapist and wound care nurse consulted. MRI left foot ordered. Started on IV Unasyn and vancomycin. Previous wound culture shows Proteus mirabilis, MRSA,Morganella, anaerobic cocci strep group B. Species noted multiple organisms. Wound culture from 03/03, preliminary shows staph aureus and gram-negative anselmo. Blood culture has been ordered from ER. Lactic acid normal. No leukocytosis. CRP and ESR elevated. 03/06: MRI left foot discussed shows mild to moderate osteomyelitis of posterior process of calcaneus not different from previous MRI of 12/09/2020 when he completed IV antibiotics. Noninvasive vascular study on 09/2020 showed triphasic PT and DP pulses with right NADIA 1.12 and left NADIA 1.16. Seen by ID and antibiotic changed to vancomycin and Zosyn as culture showed gram-negative anselmo and stent to Unasyn in recent past. Patient is interested in BKA if needed. 03/07: Blood culture growing staph aureus and wound culture MRSA, Proteus mirabilis and Morganella morganii Moderate protein calorie malnutrition: Prealbumin is low at 11.0. Magnesium and phosphorus in normal range. On Edy supplement. Twisting Machine Operator consult. 2. Diabetes mellitus type 2 with diabetic neuropathy: A1c tomorrow a.m. Accu- Chek before meals and at bedtime cover with Humalog sliding scale. On home dose of Lantus and short-acting insulin A1c 7.3. Patient had hypoglycemia episode in the morning 59. Repeat Accu-Cheks ordered 3. COPD with history of pulmonary embolism in the past: Currently patient is not on anticoagulant agent. 4. History of rheumatoid arthritis, and osteomyelitis in the past: PT OT ordered. Twisting Machine Operator consult. VTE prophylaxis: Lovenox 40 mg subcu daily. Discontinue if platelet count drops less than 50,000 or hemoglobin less than 8 g% Microbiology Past 72 Hours 03/05/21 10:05 Blood Culture (Wb) - Femoral Artery Blood Culture - Preliminary No growth in 48 hours. 03/05/21 10:10 Blood Culture (Wb) - Femoral Artery Blood Culture - Preli minary Staphylococcus aureus Laboratory Results 03/05/21 14:25: Urine Color Yellow, Urine Clarity Sl. Cloudy, Urine pH 6.5, Ur Specific [place] 1.010, Urine Protein Negative, Urine Glucose (UA) Normal, Urine Ketones Negative, Urine Occult Blood 50 H, Urine Nitrite Negative, Urine Bilirubin Negative, Urine Urobilinogen 1 H, Ur Leukocyte Esterase Negative, Urine RBC 0-5 SEEN, Urine WBC 0 SEEN, Ur Squamous Epith Cells 0 SEEN, Urine Bacteria 0 SEEN, Urine Mucus 0 SEEN 03/06/21 11:36: POC Glucose 222 H 03/06/21 16:41: POC Glucose 107 03/06/21 22:15: POC Glucose 219 H 03/07/21 01:45: Vancomycin Trough 16.8 H 03/07/21 08:13: POC Glucose 163 H Clinical Impression(s) from Imaging Studies Chest X-Ray 03/05/21 11:42 IMPRESSION: Hyperinflation. The lungs are clear. Lower Extremity MRI 03/05/21 12:41 IMPRESSION: 1. Mild to moderate osteomyelitis on the plantar aspect of the posterior process of the calcaneus. Large soft tissue heel ulcer/wound. Electronically Signed: Greg Ferrari MD at 8:20 EDT , Service support , Visit Charges Inpatient E&M: 72488 Subs Hosp L2
[2021-03-07 11:40] LABS: Bedside Glucose 163 mg/dL (70-110)
[2021-03-07] MEDS: Insulin Lispro 100 UNIT/ML INSULN.PEN 13 UNIT SC ×2 (12:02→17:23)
--- NOTE | 2021-03-07 13:03 | NURSING ---
IV in LT hand was leaking and mostly out. THis nurse attempted to re-start IV and was unsuccessful. Jie Charge nurse Attempted to restart as well and was unsuccessful as well. Dr. Mendoza made aware and orders to get a PICC line placed was received.
--- NOTE | 2021-03-07 15:07 | NURSING ---
This nurse has attempted to get a hold of seo intern twice now. First time I was on hold for 10 min. After going to take care of another pt approximately 20 min, I called again and was put on hold to wait for the next sales representative groceries for 8 min. I will have Jie RN try to call.
--- NOTE | 2021-03-07 15:52 | NURSING ---
This nurse got a hold of chief of planning carriewsering service and waiting on them to call back with a time that they will be here.
[2021-03-07 16:44] VITALS: BP 155/91; PULSE 96; RESP 18; TEMP 36.4; O2SAT 98
--- NOTE | 2021-03-07 17:11 | NURSING ---
Pt upset at this nurse that I just went in and did not tell him what was going on. This nurse apolgized that had to get order from [facility] then had to get a hold of sausage maker and still dont have a time that they are coming as they have not called back with a ETA. Pt is angry that he can not get his Antibotics. I might as well go home. Tell that Doctor if he wants to send me to the correction with a PICC line that I'm not fucking going. Dr. Calloway can cut off my fuckin foot before I go back to the correction. Pt continued to get angry. Asked why can't someone else try regarding his IV. Just because the two of you could not get it doesn't mean someone else can't. This nurse called the cage/vault supervisor/Scotty and he had Jen From ED insert IV.
[2021-03-07 17:35] LABS: Bedside Glucose 136 mg/dL (70-110)
[2021-03-07] MEDS: Morphine 2 MG/ML Syringe IV (19:20)
[2021-03-07] MEDS: 0.9% Saline Lock 10 ML Syringe IV (19:22)
--- NOTE | 2021-03-07 19:42 | NURSING ---
In room to dicuss PICC line placement. Pt refusing PICC line despite education on importance of it. AccessRN contacted at this time to cancel order.
[2021-03-07 21:08] VITALS: BP 127/70; PULSE 87; RESP 16; TEMP 36.7; O2SAT 99
[2021-03-07] MEDS: Acetaminophen 325 MG Tablet 650 MG PO (21:56)
[2021-03-07] MEDS: oxyCODONE 5 MG Tablet PO (21:56)
[2021-03-07 22:06] LABS: Bedside Glucose 163 mg/dL (70-110)
[2021-03-08 02:23] VITALS: BP 104/54; PULSE 73; RESP 16; TEMP 36.6; O2SAT 94
[2021-03-08] MEDS: oxyCODONE 5 MG Tablet PO ×3 (02:30→22:28)
[2021-03-08] MEDS: Insulin Lispro 100 UNIT/ML INSULN.PEN SC ×2 (06:20→12:31)
[2021-03-08 07:20] LABS: Absolute Lymphocyte Count 2.24 X10^3/uL (0.83-4.51); Absolute Neutrophil Count 4.4 X10^3/uL (2.0-7.7); Basophil# 0.06 X10^3/uL; Basophil% 0.8 % (0-1); Hematocrit 45.2 % (40-54); Hemoglobin 14.2 g/dL (13.0-16.5); Lymphocyte # 2.24 X10^3/ul (0.83-4.51); Lymphocyte % 28.2 % (19-41); Mean Corp Hgb Conc 31.4 g/dL (32-36); Mean Corpuscular Hgb 27.4 pg (27.0-32.0); Mean Corpuscular Volume 87.3 fL (80-94); Mean Platelet Vol. 9.2 fl (6.2-12.0); Monocyte# 0.84 X10^3/uL; Monocyte% 10.6 % (0-10); NRBC Flagged by Analyzer 0.8 % (0-5); Neutrophil # 4.35 X10^3/uL (2.7-7.7); Neutrophil % 54.9 % (47-70); Platelet Count 361 K/mm3 (150-450); RBC Distribution Width CV 13.2 % (11.6-14.6); RBC Distribution Width SD 42.2 fl (35.1-43.9); Red Blood Count 5.18 M/mm3 (4.6-6.2); White Blood Count 7.9 K/mm3 (4.4-11.0)
[2021-03-08 07:49] LABS: Anion Gap 9 (5-15); BUN 28 mg/dL (7-18); BUN/Creat Ratio 33.7 RATIO (10-20); Calcium,Total 8.7 mg/dL (8.5-10.1); Chloride 105 mmol/L (98-107); Creatinine, Serum 0.83 mg/dL (0.70-1.30); EST Glomerular Filtration Rate 100 mL/min (>60); Est Glom Filt Rate - Afr Amer 120 mL/min (>60); Glucose 153 mg/dL (74-106); Potassium 4.2 mmol/L (3.5-5.1); Sodium Level 135 mmol/L (136-145)
[2021-03-08 08:16] VITALS: BP 120/71; PULSE 78; RESP 18; TEMP 36.6; O2SAT 98
[2021-03-08 09:10] LABS: Bedside Glucose 116 mg/dL (70-110)
[2021-03-08] MEDS: Enoxaparin 40 MG/0.4 ML Syringe SC (09:54)
--- NOTE | 2021-03-08 11:19 | PCM.PN.HOSP ---
Subjective Subjective: Patient was seen and examined. Not on oxygen. Comfortable lying flat in bed. Patient denied any pain. He stated that he wants his leg cut off. Denies any fever. Blood cultures positive for MRSA. Patient is on IV vancomycin. Objective Data Objective Data Vital Signs: Vital Signs Temp Pulse Resp BP Pulse Ox 97.8 F 78 18 120/71 98 03/08/21 08:16 03/08/21 08:16 03/08/21 08:16 03/08/21 08:16 03/08/21 08:16 Oxygen Delivery Method Room Air Weight: 85.2 kg Body Mass Index (BMI) 26.9 Finger Stick Blood Glucose 415 Intake & Output: Intake and Output for Last 24 Hours 03/06/21 03/07/21 03/08/21 23:59 23:59 23:59 Intake Total 3260 / 3260 2200 / 2600 1230 / 1230 Output Total 500 / 2100 3200 / 4425 1725 / 1725 Balance 2760 / 1160 -1000 / -1825 -495 / -495 Lab / Micro Data Result Diagrams: 03/08/21 05:50 03/08/21 05:50 Labs: Laboratory Results - last 24 hr 03/07/21 03/07/21 03/07/21 11:13 16:40 21:59 WBC RBC Hgb Hct MCV MCH MCHC RDW Std Deviation RDW Coeff of Cheri Plt Count MPV Immature Gran % (Auto) Neut % (Auto) Lymph % (Auto) [place] % (Auto) Eos % (Auto) Baso % (Auto) Absolute Neuts (auto) Absolute Lymphs (auto) Nucleated RBC % Sodium Potassium Chloride Carbon Dioxide Anion Gap BUN Creatinine Estim Creat Clear Calc Est GFR (MDRD) Af Amer Est GFR (MDRD) Non-Af BUN/Creatinine Ratio Glucose Calcium POC Glucose 163 H 136 H 163 H 03/08/21 03/08/21 03/08/21 05:50 05:50 08:31 WBC 7.9 RBC 5.18 Hgb 14.2 Hct 45.2 MCV 87.3 MCH 27.4 MCHC 31.4 L RDW Std Deviation 42.2 RDW Coeff of Cheri 13.2 Plt Count 361 MPV 9.2 Immature Gran % (Auto) 0.500 Neut % (Auto) 54.9 Lymph % (Auto) 28.2 [place] % (Auto) 10.6 H Eos % (Auto) 5.0 Baso % (Auto) 0.8 Absolute Neuts (auto) 4.4 Absolute Lymphs (auto) 2.24 Nucleated RBC % 0.8 Sodium 135 L Potassium 4.2 Chloride 105 Carbon Dioxide 21.0 Anion Gap 9 BUN 28 H Creatinine 0.83 Estim Creat Clear Calc 96.50 Est GFR (MDRD) Af Amer 120 Est GFR (MDRD) Non-Af 100 BUN/Creatinine Ratio 33.7 H Glucose 153 H Calcium 8.7 POC Glucose 116 H Micro: Microbiology 03/05/21 10:10 Blood Culture (Wb) - Femoral Artery Blood Culture - Final Meth. resistant Staph. aureus 03/05/21 10:05 Blood Culture (Wb) - Femoral Artery Blood Culture - Preliminary No growth in 48 hours. Physical Exam Narrative General: Alert, Oriented x3, Cooperative HEENT: Atraumatic, PERRLA, EOMI, Normocephalic Oral: No Gingival or Mucosal Lesions/ Ulcerations Neck: Supple, No JVD, Negative Carotid Bruits Lungs: Air entry diminished in bilateral lung bases. Cardiovascular: Regular rate, Regular Rhythm, Normal S1, Normal S2, No murmurs Abdomen: Bowel Sounds Present, Soft, Non Tender, Non-Distended : No renal angle tenderness. No suprapubic tenderness. Extremities: Mild left foot edema, Capillary Refill Less than 3 Seconds Skin: Left heel deep ulcer, oval in shape. Wound VAC applied. Diabetic ulcer Musculoskeletal: No Tenderness to Palpation of Joints or Extremities Neurological: Decreased gross sensation over left foot and heel. Left great toe position sense intact. 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 Acute on chronic left heel MRSA diabetic ulcer/mild to moderate osteomyelitis of the posterior process of the calcaneus MRI of the left leg done on 03/06/21 shows above Wound cultures on shows MRSA, Proteus mirabilis, Morganella morganii No fevers, normal WBC count overnight Podiatry and ID following; Continue on IV vancomycin and Zosyn Patient requests for amputation; discussed with podiatry 2. MRSA bacteremia, continue on IV vancomycin, will get 2D echo Blood cultures on shows MRSA 3. Moderate protein calorie malnutrition, meteorologist in charge consulted 4. Diabetes mellitus type 2 with diabetic neuropathy, HbA1c is 7.3, blood sugars well controlled Patient had episode of hypoglycemia on 03/06/21. Home Lantus continued at 50 units; home lispro decreased to 8 units 3 times daily Continue with insulin sliding scale Visit Charges Inpatient E&M: 36954 Subs Hosp L2
[2021-03-08 12:21] LABS: Bedside Glucose 198 mg/dL (70-110)
[2021-03-08] MEDS: Insulin Lispro 100 UNIT/ML INSULN.PEN 13 UNIT SC (12:33)
--- NOTE | 2021-03-08 13:06 | NURSING ---
wound photo: left heel
--- NOTE | 2021-03-08 13:27 | CASEMGMT ---
[facility] palliative screening completed and pt does not meet palliative criteria at this time. SStnelson RN CM
[2021-03-08 14:10] VITALS: BP 123/71; PULSE 83; RESP 16; TEMP 36.8; O2SAT 96
--- NOTE | 2021-03-08 14:15 | PCM.PROGNOTE ---
Subjective Subjective: Patient was seen this morning for follow up on heel ulcer and osteomyelitis. He relates he would like to proceed with amputation/BKA. He has no new complaints, no complaints of fever, chills, nausea or vomiting. Objective Data Objective Data Vital Signs: Vital Signs Temp Pulse Resp BP Pulse Ox 98.2 F 83 16 123/71 H 96 03/08/21 14:10 03/08/21 14:10 03/08/21 14:10 03/08/21 14:10 03/08/21 14:10 Oxygen Delivery Method Room Air Weight: 85.2 kg Body Mass Index (BMI) 26.9 Finger Stick Blood Glucose 415 Intake & Output: Intake and Output for Last 24 Hours 03/06/21 03/07/21 03/08/21 23:59 23:59 23:59 Intake Total 3260 / 3260 2200 / 2600 1630 / 1630 Output Total 500 / 2100 3200 / 4425 2225 / 2225 Balance 2760 / 1160 -1000 / -1825 -595 / -595 Lab / Micro Data Result Diagrams: 03/08/21 05:50 03/08/21 05:50 Labs: Laboratory Results - last 24 hr 03/07/21 03/07/21 03/08/21 16:40 21:59 05:50 WBC 7.9 RBC 5.18 Hgb 14.2 Hct 45.2 MCV 87.3 MCH 27.4 MCHC 31.4 L RDW Std Deviation 42.2 RDW Coeff of Cheri 13.2 Plt Count 361 MPV 9.2 Immature Gran % (Auto) 0.500 Neut % (Auto) 54.9 Lymph % (Auto) 28.2 [place] % (Auto) 10.6 H Eos % (Auto) 5.0 Baso % (Auto) 0.8 Absolute Neuts (auto) 4.4 Absolute Lymphs (auto) 2.24 Nucleated RBC % 0.8 Sodium Potassium Chloride Carbon Dioxide Anion Gap BUN Creatinine Estim Creat Clear Calc Est GFR (MDRD) Af Amer Est GFR (MDRD) Non-Af BUN/Creatinine Ratio Glucose Calcium POC Glucose 136 H 163 H 03/08/21 03/08/21 03/08/21 05:50 08:31 12:06 WBC RBC Hgb Hct MCV MCH MCHC RDW Std Deviation RDW Coeff of Cheri Plt Count MPV Immature Gran % (Auto) Neut % (Auto) Lymph % (Auto) [place] % (Auto) Eos % (Auto) Baso % (Auto) Absolute Neuts (auto) Absolute Lymphs (auto) Nucleated RBC % Sodium 135 L Potassium 4.2 Chloride 105 Carbon Dioxide 21.0 Anion Gap 9 BUN 28 H Creatinine 0.83 Estim Creat Clear Calc 96.50 Est GFR (MDRD) Af Amer 120 Est GFR (MDRD) Non-Af 100 BUN/Creatinine Ratio 33.7 H Glucose 153 H Calcium 8.7 POC Glucose 116 H 198 H Micro: Microbiology 03/05/21 10:10 Blood Culture (Wb) - Femoral Artery Blood Culture - Final Meth. resistant Staph. aureus 03/05/21 10:05 Blood Culture (Wb) - Femoral Artery Blood Culture - Preliminary No growth in 48 hours. Physical Exam Const alert, oriented x3 and no apparent distress General Appearance: cooperative Extremity Extremity Narrative: stable plantar left heel ulceration down to bone, granular tissue present but some mild fibrotic tissue present, cellulitis much improved, no maloder, no fluctuance, no crepitus, no visible abscess, no streaking, no evidence of acute ischemia. Assessment & Plan Assessment/Plan (1) Osteomyelitis of ankle and foot: PLAN: (1) Non-pressure chronic ulcer of other part of left foot with necrosis of bone: (2) Type 2 diabetes mellitus with diabetic polyneuropathy: (3) Calcaneal gait: (4) Osteomyelitis: (5) Achilles rupture, left: PLAN: Patient seen and evaluated bedside. Patient has chronic ulcer and osteomyelitis. He has achilles tendon rupture on the left side as well. Hemoglobin A1c was obtained 12/08/2020 with a result of 8.9% Culture obtained 03/03/2021 from the left heel is showing MRSA, Proteus Mirabilis, Morganella Morganni, Blood cultures from 03/05/2021 are positive for staph aureus. His noninvasive vascular studies 10/28/2020 were reviewed with triphasic PT and DP pulses bilateral. His right NADIA is 1.12 and left 1.16. His toe brachial index is 1.12 on the right and 1.34 on the left. There is no significant segmental pressure drop and therefore no arterial occlusive lesion is suspected. MRI 03/05/2021: left lower extremity demonstrated mild to moderate osteomyelitis of the plantar aspect of the posterior process of the calcaneus. Large soft tissue heel ulcer wound noted. The MRI results obtained 03/05/2021 showed no significant interval change from previous MRI obtained 12/09/2020 of which patient has completed a course of antibiotics per infectious disease for treatment of the osteomyelitis between these 2 MRIs. Patient expresses he would like to proceed with BKA or at least speak with surgeon about this possibility. I think proceeding with BKA or AKA is a reasonable given chronic ulceration and infection despite care so far over ~8 months. In meantime continue with antibiotic therapy, and local wound care. Continue with wound vac to the ulcer site. I discussed with Dr. Landaverde. Podiatry will continue to follow.
--- NOTE | 2021-03-08 14:51 | PCM.PN.ID ---
Physical Exam Narrative Feeling ok, no fever, no new joint pain or back pain. Const alert and no apparent distress General Appearance: cooperative Resp normal air movement and clear to auscultation bilaterally Cardio regular rate and regular rhythm GI normal to inspection, nondistended, normoactive bowel sounds Skin Skin Narrative: L 3rd finger with 2 splinter hemorrhages ID ID: Route of nutrition/ use of supplements: [] Nutritional Intake: [] IV Site: [] Wilkinson Catheter: [] Assessment & Plan Assessment/Plan (1) Infection of left foot: PLAN: MRSA bacteremia due to recurrent L foot osteo - wound cx with MRSA, proteus, morganella. Will repeat bcx and check echo. Concern for endocarditis with splinter hemorrhages on L middle finger. Pt interested in amputation, will consult ortho for eval. Will follow
[2021-03-08 16:56] LABS: Bedside Glucose 166 mg/dL (70-110)
[2021-03-08 17:00] LABS: Bedside Glucose 141 mg/dL (70-110)
[2021-03-08 18:28] VITALS: BP 123/61; PULSE 88; RESP 16; TEMP 36.7; O2SAT 98
[2021-03-08 22:19] VITALS: BP 124/72; PULSE 86; RESP 18; TEMP 36.8; O2SAT 96
[2021-03-08] MEDS: Acetaminophen 325 MG Tablet 650 MG PO (22:28)
[2021-03-08 23:35] LABS: Bedside Glucose 225 mg/dL (70-110)
[2021-03-09 05:53] VITALS: BP 97/51; PULSE 74; RESP 16; TEMP 36.5; O2SAT 96
[2021-03-09 07:14] LABS: Absolute Lymphocyte Count 2.05 X10^3/uL (0.83-4.51); Absolute Neutrophil Count 4.8 X10^3/uL (2.0-7.7); Basophil# 0.06 X10^3/uL; Basophil% 0.7 % (0-1); Eosinophil# 0.41 X10^3/uL; Eosinophils% 5.1 % (0-5); Hematocrit 44.1 % (40-54); Hemoglobin 14.1 g/dL (13.0-16.5); Lymphocyte # 2.05 X10^3/ul (0.83-4.51); Lymphocyte % 25.5 % (19-41); Mean Corpuscular Hgb 27.6 pg (27.0-32.0); Mean Corpuscular Volume 86.5 fL (80-94); Monocyte# 0.73 X10^3/uL; Monocyte% 9.1 % (0-10); NRBC Flagged by Analyzer 0 % (0-5); Neutrophil # 4.76 X10^3/uL (2.7-7.7); Neutrophil % 59.1 % (47-70); Platelet Count 368 K/mm3 (150-450); RBC Distribution Width CV 13.2 % (11.6-14.6); RBC Distribution Width SD 41.2 fl (35.1-43.9); White Blood Count 8.1 K/mm3 (4.4-11.0)
[2021-03-09 07:43] LABS: ALB/GLOB Ratio 0.5 RATIO (0.9-2.4); AST(SGOT) 17 U/L (15-37); Alanine Aminotransfer ALT/SGPT 19 U/L (16-61); Albumin, Serum 2.5 g/dL (3.2-5.0); Alkaline Phosphatase 88 U/L (45-117); Anion Gap 6 (5-15); BUN 31 mg/dL (7-18); BUN/Creat Ratio 36.2 RATIO (10-20); Calcium,Total 8.8 mg/dL (8.5-10.1); Chloride 106 mmol/L (98-107); Creatinine, Serum 0.86 mg/dL (0.70-1.30); EST Glomerular Filtration Rate 96 mL/min (>60); Est Glom Filt Rate - Afr Amer 116 mL/min (>60); Estimated Creatinine Clearance 93.14 ml/min; Globulin 4.7 g/dL (2.2-4.2); Glucose 160 mg/dL (74-106); Potassium 3.8 mmol/L (3.5-5.1); Protein, Total 7.2 g/dL (6.4-8.2); Sodium Level 138 mmol/L (136-145)
[2021-03-09 09:01] LABS: Bedside Glucose 138 mg/dL (70-110)
[2021-03-09 09:48] VITALS: BP 127/66; PULSE 73; RESP 18; TEMP 36.4; O2SAT 100
[2021-03-09] MEDS: Enoxaparin 40 MG/0.4 ML Syringe SC (09:49)
--- NOTE | 2021-03-09 09:50 | PCM.PN.ID ---
Physical Exam Narrative No fever, no new joint pain. Wants leg amputated and then wants to return home. Const alert General Appearance: cooperative Resp clear to auscultation bilaterally Cardio regular rate and regular rhythm GI normal to inspection, nondistended, normoactive bowel sounds Skin Skin Narrative: LLE wrapped ID ID: Route of nutrition/ use of supplements: [] Nutritional Intake: [] IV Site: [] Wilkinson Catheter: [] Assessment & Plan Assessment/Plan (1) Infection of left foot: PLAN: MRSA bacteremia due to recurrent L foot osteo - wound cx with MRSA, proteus, morganella. Will repeat bcx. TTE showed no veg. Concern for endocarditis with splinter hemorrhages on L middle finger. Pt interested in amputation, consulted ortho for eval. Recommend he get BUCK this admit. Will follow
--- NOTE | 2021-03-09 11:05 | PN.HOSP_ITS ---
Subjective Subjective: Patient was seen and examined. He complains of pain in his leg. Plastic surgery consulted for BKA. 2D echo is pending Objective Data Objective Data Vital Signs: Vital Signs Temp Pulse Resp BP Pulse Ox 97.6 F L 73 18 127/66 H 100 03/09/21 09:48 03/09/21 09:48 03/09/21 09:48 03/09/21 09:48 03/09/21 09:48 Oxygen Delivery Method Room Air Weight: 85.2 kg Body Mass Index (BMI) 26.9 Finger Stick Blood Glucose 415 Intake & Output: Intake and Output for Last 24 Hours 03/07/21 03/08/21 03/09/21 23:59 23:59 23:59 Intake Total 2200 / 2600 2910 / 2910 1130 / 1130 Output Total 3200 / 4425 3725 / 3725 1075 / 1075 Balance -1000 / -1825 -815 / -815 55 / 55 Lab / Micro Data Result Diagrams: 03/09/21 05:55 03/09/21 05:55 Labs: Laboratory Results - last 24 hr 03/08/21 03/08/21 03/08/21 06:19 12:06 16:50 WBC RBC Hgb Hct MCV MCH MCHC RDW Std Deviation RDW Coeff of Cheri Plt Count MPV Immature Gran % (Auto) Neut % (Auto) Lymph % (Auto) [place] % (Auto) Eos % (Auto) Baso % (Auto) Absolute Neuts (auto) Absolute Lymphs (auto) Nucleated RBC % Sodium Potassium Chloride Carbon Dioxide Anion Gap BUN Creatinine Estim Creat Clear Calc Est GFR (MDRD) Af Amer Est GFR (MDRD) Non-Af BUN/Creatinine Ratio Glucose Calcium Total Bilirubin AST ALT Alkaline Phosphatase Total Protein Albumin Globulin Albumin/Globulin Ratio POC Glucose 166 H 198 H 141 H 03/08/21 03/09/21 03/09/21 22:18 05:55 05:55 WBC 8.1 RBC 5.10 Hgb 14.1 Hct 44.1 MCV 86.5 MCH 27.6 MCHC 32.0 RDW Std Deviation 41.2 RDW Coeff of Cheri 13.2 Plt Count 368 MPV 9.0 Immature Gran % (Auto) 0.500 Neut % (Auto) 59.1 Lymph % (Auto) 25.5 [place] % (Auto) 9.1 Eos % (Auto) 5.1 H Baso % (Auto) 0.7 Absolute Neuts (auto) 4.8 Absolute Lymphs (auto) 2.05 Nucleated RBC % 0 Sodium 138 Potassium 3.8 Chloride 106 Carbon Dioxide 26.0 Anion Gap 6 BUN 31 H Creatinine 0.86 Estim Creat Clear Calc 93.14 Est GFR (MDRD) Af Amer 116 Est GFR (MDRD) Non-Af 96 BUN/Creatinine Ratio 36.2 H Glucose 160 H Calcium 8.8 Total Bilirubin 0.20 AST 17 ALT 19 Alkaline Phosphatase 88 Total Protein 7.2 Albumin 2.5 L Globulin 4.7 H Albumin/Globulin Ratio 0.5 L POC Glucose 225 H 03/09/21 08:55 WBC RBC Hgb Hct MCV MCH MCHC RDW Std Deviation RDW Coeff of Cheri Plt Count MPV Immature Gran % (Auto) Neut % (Auto) Lymph % (Auto) [place] % (Auto) Eos % (Auto) Baso % (Auto) Absolute Neuts (auto) Absolute Lymphs (auto) Nucleated RBC % Sodium Potassium Chloride Carbon Dioxide Anion Gap BUN Creatinine Estim Creat Clear Calc Est GFR (MDRD) Af Amer Est GFR (MDRD) Non-Af BUN/Creatinine Ratio Glucose Calcium Total Bilirubin AST ALT Alkaline Phosphatase Total Protein Albumin Globulin Albumin/Globulin Ratio POC Glucose 138 H Micro: Microbiology 03/05/21 10:10 Blood Culture (Wb) - Femoral Artery Blood Culture - Final Meth. resistant Staph. aureus 03/05/21 10:05 Blood Culture (Wb) - Femoral Artery Blood Culture - Preliminary No growth in 48 hours. Physical Exam Narrative General: Alert, Oriented x3, Cooperative HEENT: Atraumatic, PERRLA, EOMI, Normocephalic Oral: No Gingival or Mucosal Lesions/ Ulcerations Neck: Supple, No JVD, Negative Carotid Bruits Lungs: Air entry diminished in bilateral lung bases. Cardiovascular: Regular rate, Regular Rhythm, Normal S1, Normal S2, No murmurs Abdomen: Bowel Sounds Present, Soft, Non Tender, Non-Distended : No renal angle tenderness. No suprapubic tenderness. Extremities: Mild left foot edema, Capillary Refill Less than 3 Seconds Skin: Left heel deep ulcer, oval in shape. Wound VAC applied. Diabetic ulcer Musculoskeletal: No Tenderness to Palpation of Joints or Extremities Neurological: Decreased gross sensation over left foot and heel. Left great toe position sense intact. 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 Acute on chronic left heel MRSA diabetic ulcer/mild to moderate osteomyelitis of the posterior process of the calcaneus MRI of the left leg done on 03/06/21 shows above Wound cultures on shows MRSA, Proteus mirabilis, Morganella morganii No fevers, normal WBC count overnight Podiatry and ID following; Continue on IV vancomycin and Zosyn Plastic surgery consulted. 2. MRSA bacteremia, continue on IV vancomycin, will get 2D echo Blood cultures on shows MRSA 3. Moderate protein calorie malnutrition, geospatial extractor analysis consulted 4. Diabetes mellitus type 2 with diabetic neuropathy, HbA1c is 7.3, blood sugars are better controlled today Patient had episode of hypoglycemia on 03/06/21. Home Lantus continued at 50 units and home lispro 8 units 3 times daily Continue with insulin sliding scale Visit Charges Inpatient E&M: 71278 [facility] Hosp L2
[2021-03-09] MEDS: Insulin Lispro 100 UNIT/ML INSULN.PEN SC ×2 (12:41→17:07)
[2021-03-09] MEDS: oxyCODONE 5 MG Tablet PO ×2 (12:49→21:40)
[2021-03-09] MEDS: Acetaminophen 325 MG Tablet 650 MG PO ×2 (12:49→21:40)
[2021-03-09 14:10] LABS: Bedside Glucose 206 mg/dL (70-110)
[2021-03-09 14:51] VITALS: BP 140/76; PULSE 88; RESP 16; TEMP 36.6; O2SAT 98
--- NOTE | 2021-03-09 15:48 | CASEMGMT ---
Social Work Note SW received consult that pt would like to complete LW, SW will follow up with pt tomorrow. Sandra Ramachandran [employer] TUBE BENDER, TECHNICAL PROJECT LEAD
--- NOTE | 2021-03-09 16:42 | CHAPLAIN ---
Type of Pastoral Visit _x__ Initial Visit ___ Follow-up Visit ___ On-call Visit ___ General Patient Visit ___ Spiritual Assessment ___ Family Conference ___ Bereavement ___ Rapid Response ___ Code Blue ___ Other (describe below) Pastoral Care Referral From ___ Patient ___ Family _x__ Nurse ___ Physician ___ Lidder ___ Decorative Engraver ___ Other (describe below) Sacrament/Intervention _x__ Active listening ___ Anointing ___ Restoration ___ Bereavement ___ Communion _x__ Maricel exploration ___ ___ Life review _x__ Prayer ___ Reconciliation ___ Sacrament of Sick _x__ Supportive presence ___ Wedding ___ Other (describe below) Pastoral Comments referred by RN as patient is anxious; pt is tearful and admits that he is fearful about dying; pt talks about not wanting to leave my loved ones and he would like to have prayers said for him
--- NOTE | 2021-03-09 17:17 | PCM.CONS.GEN ---
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 Vascular studies reviewed. Patient has a complex nonhealing infected MRSA diabetic ulcer left heel with associated osteomyelitis. The ulcer has had aggressive wound care and antibiotic therapy and now has MRSA bacteremia. He was recently receiving [facility]. He is being treated at present with Vancomycin and Zosyn based on cultures that showed MRSA, Morganella morganii,, and Proteus mirabilis. The Anaerobic culture is pending. Patient would benefit from a BKA. Will schedule it in a couple of weeks after he is treated with IV antibiotics and the MRSA bacteremia has cleared. If the ulcer were to worsen in the meantime, then aggressive operative debridement can be done to stabilize the infection and to minimize more proximal spread that may make it difficult to perform a BKA and the patient may end up needing an AKA. His HgbA1c was 7.3. Anticipate increased metabolic demands from the infection. Prealbumin was 11.0. Encourage nutritional supplementation with protein to help the healing process. Patient was informed of the risks and complications of the procedure including alternatives to surgery. These were discussed with the patient personally. Patient voices understanding and wishes to proceed. Potential risks and complications included but not inclusive of bleeding, infection seroma, hematoma, bruising, swelling, prolonged need for drains, loss of sensation to skin, partial or complete loss of skin flap and/or nipple graft, wound breakdown, need for wound care, poor scarring, poor aesthetic outcome, intra operative cardiac or neurologic events, DVT, PE, and reaction to anesthesia. We discussed the current risks associated with COVID-19. While it is understood that there is a community spread of COVID-19, the risk of heike COVID-19 while at [facility] ([facility]) is very low; however, the risk cannot be completely mitigated because of the community spread of the disease. We discussed in detail the risk of exposure to and/or potential harm posed by the COVID-19 virus with having a surgery/procedure at this time versus the risk of delaying the surgery/procedure. It is not possible to know either the risk of delaying the surgery or procedure or chance of getting an infection with perfect accuracy, but a joint decision was made to proceed at this time with the scheduled surgery/procedure as indicated on the consent form. Patient was notified that we will need to comply with any screening or testing [facility] wishes to perform or that surgery may be delayed for any positive results. Discussed with the patient that I was tested for COVID-19 on 04/30/20 which was negative and on 05/14/20 which was negative and on 05/28/20 which was negative and on 06/11/20 which was negative and on 06/25/20 which was negative and on 07/16/20 which was negative and on 08/06/20 which was negative and on 09/10/20 which was negative and on 10/01/20 which was negative and on 10/20/20 which was negative. ? My testing regimen at this time is to be COVID-19 tested every 2 weeks or so.? I received the COVID-19 vaccine (Moderna) on 10/28/20 and the second vaccine dose was received on 11/25/20.? When I was hospitalized on 12/28/20 I was tested for COVID-19 which was negative.? I was also? tested for COVID-19 on 01/12/21 which was negative and on 02/08/21 which was negative. HPI Consult Data Date of Consult: 03/09/21 PCP / Referring MD: Dr. Albrecht. Attending Care Provider: Dr. Landaverde. HPI Narrative Reason for Consultation: Nonhealing infected MRSA diabetic ulcer left heel with osteomyelitis. HPI Narrative: LIZETH BURGOS, is a 60 M who was recently admitted for a nonhealing infected MRSA diabetic ulcer left heel with associated osteomyelitis. Cultures showed MRSA, Morganella morganii, and Proteus mirabilis. He is currently on Vancomycin and Zosyn. He also has MRSA bacteremia as well. He had [facility]. He was recently placed on Bactrim. He was undergoing HBO treatments and wound care was done with the [facility]. He states he had fever at home prior to admission. ?He had an x-ray done on 03/03/21 which showed no osteomyelitis and MRI was recommended. He needed IV antibiotics back in November,. MRI was done on 03/05/21. It showed Mild to moderate osteomyelitis on the plantar aspect of the posterior process of the calcaneus.? Large soft tissue heel ulcer/wound. He had vascular studies which showed triphasic PT and DP pulses bilateral. His right NADIA is 1.12 and left 1.16. His toe brachial index is 1.12 on the right and 1.34 on the left. There is no significant segmental pressure drop and therefore no arterial occlusive lesion is suspected. WBC was 10.9 upon admission. Today it is 8.1. Latate was 1.0. ESR was 50. CRP was 93.70. Prealbumin was 11.0. HgbA1c was 7.3. Amputation was discussed with the patient. He expressed interest because he is tired of dealing with this complex infected diabetic ulcer. He is also concerned about the recent MRSA in his blood. I was asked to evaluate this patient for surgical options for treatment. [facility] Medical History (Updated 03/11/21 @ 11:[address] Mauro Gallego MD) Arthritis Bacteremia 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 COPD (chronic obstructive pulmonary disease) Depression Diabetes Former smoker History of pulmonary embolism Infection of left foot MRSA (methicillin resistant Staphylococcus aureus) MRSA cellulitis of left foot Osteomyelitis of ankle and foot Substance abuse Type 2 diabetes mellitus without complications Home Medications insulin glargine 100 unit/mL (3 mL) subcutaneous pen 50 unit SC QHS 30 Days #15 ml 01/26/21 [Rx Last Taken Unknown] blood sugar diagnostic #200 each 01/28/21 [Rx Last Taken Unknown] lancets #200 each 02/03/21 [Rx Last Taken Unknown] pen needle, diabetic 31 gauge x 16 #100 each 02/03/21 [Rx Last Taken Unknown] insulin lispro 8 unit SUBCUT TIDCM 03/05/21 [History Last Taken Unknown] ertapenem 1 g IV Q24H 35 Days #35 ea 03/10/21 [Rx Last Taken Unknown] vancomycin in 0.9 % sodium chl 1.5 g IV Q12H 40 Days #80 bag 03/10/21 [Rx Last Taken Unknown] Allergy/AdvReac Type Severity Reaction Status Date / Time onion Allergy Food Verified 01/26/21 13:16 Allergy Family History Grandmother Diabetes Surgical History History of appendectomy History of neck surgery Hx of LASIK Social History Smoking Status: Former smoker alcohol intake: never substance use type: does not use what type of physical activity do you participate in: none ROS ROS Narrative Constitutional: Reports fatigue and weakness, mild occasional fever HEENT: Reports systems reviewed and no addt'l complaints. Respiratory/Chest: Denies shortness of breath with exertion Gastrointestinal: Denies coffee ground emesis, hematemesis or vomiting Genitourinary: Denies burning urination Musculoskeletal: Reports joint pain and limited range of motion. Has nonhealing infected MRSA diabetic ulcer left heel with osteomyelitis. Neurologic: Denies seizure-like activity Endocrinology: Blood sugar is uncontrolled.? Hematologic/Lymphatic: History of PE. Physical Exam Narrative General: Alert, Oriented x3, Cooperative HEENT: PERRLA, EOMI. Oral: No Gingival or Mucosal Lesions/ Ulcerations. Neck: Supple, nontender. No cervical adenopathy. Lungs:?Diminished at the bases.? Cardiovascular: Regular rate, Regular Rhythm. Abdomen: Soft, Non-Distended. Extremities: Mild left foot edema. Left heel deep ulcer, oval in shape. Measures 5 cm. ? Some slough and devitalized tissue. Bone is palpable. Teodora-ulcer redness. Neurological: Decreased touch and pressure sensation over left foot and heel.?? Cranial nerves II-XII grossly intact. Psych/Mental Status: Normal Affect, Appropriate. Lab / Micro Data Result Diagrams: 03/11/21 05:45 03/11/21 05:45 Labs: Laboratory Results - last 24 hr 03/08/21 03/09/21 03/09/21 22:18 05:55 05:55 WBC 8.1 RBC 5.10 Hgb 14.1 Hct 44.1 MCV 86.5 MCH 27.6 MCHC 32.0 RDW Std Deviation 41.2 RDW Coeff of Cheri 13.2 Plt Count 368 MPV 9.0 Immature Gran % (Auto) 0.500 Neut % (Auto) 59.1 Lymph % (Auto) 25.5 [place] % (Auto) 9.1 Eos % (Auto) 5.1 H Baso % (Auto) 0.7 Absolute Neuts (auto) 4.8 Absolute Lymphs (auto) 2.05 Nucleated RBC % 0 Sodium 138 Potassium 3.8 Chloride 106 Carbon Dioxide 26.0 Anion Gap 6 BUN 31 H Creatinine 0.86 Estim Creat Clear Calc 93.14 Est GFR (MDRD) Af Amer 116 Est GFR (MDRD) Non-Af 96 BUN/Creatinine Ratio 36.2 H Glucose 160 H Calcium 8.8 Total Bilirubin 0.20 AST 17 ALT 19 Alkaline Phosphatase 88 Total Protein 7.2 Albumin 2.5 L Globulin 4.7 H Albumin/Globulin Ratio 0.5 L POC Glucose 225 H 03/09/21 03/09/21 08:55 12:37 WBC RBC Hgb Hct MCV MCH MCHC RDW Std Deviation RDW Coeff of Cheri Plt Count MPV Immature Gran % (Auto) Neut % (Auto) Lymph % (Auto) [place] % (Auto) Eos % (Auto) Baso % (Auto) Absolute Neuts (auto) Absolute Lymphs (auto) Nucleated RBC % Sodium Potassium Chloride Carbon Dioxide Anion Gap BUN Creatinine Estim Creat Clear Calc Est GFR (MDRD) Af Amer Est GFR (MDRD) Non-Af BUN/Creatinine Ratio Glucose Calcium Total Bilirubin AST ALT Alkaline Phosphatase Total Protein Albumin Globulin Albumin/Globulin Ratio POC Glucose 138 H 206 H Procedure Criteria Procedure Type: Elective COVID Risk Discussion: The surgeon/proceduralist and patient have discussed in detail the risk of exposure to and/or potential harm posed by the COVID-19 virus with having a surgery/procedure at this time versus the risk of delaying the surgery/procedure. It is not possible to know either the risk of delaying the surgery or procedure or chance of getting an infection with perfect accuracy, but a joint decision was made between the patient and the surgeon/proceduralist to proceed at this time with the scheduled surgery/procedure as indicated on the consent form. Charges/Coding Visit Charges Inpatient E&M: 38377 Init Hosp L2 (ICD-10 - E11.621, L03.116, A49.02, E11.9, M86.9, R78.81)
[2021-03-09 17:26] LABS: Bedside Glucose 213 mg/dL (70-110)
[2021-03-09 20:21] VITALS: BP 112/63; PULSE 88; RESP 18; TEMP 36.7; O2SAT 96
[2021-03-09 21:55] LABS: Bedside Glucose 234 mg/dL (70-110)
[2021-03-10 02:46] VITALS: BP 92/60; PULSE 80; RESP 16; TEMP 36.7; O2SAT 97
[2021-03-10] MEDS: oxyCODONE 5 MG Tablet PO ×3 (03:05→22:30)
[2021-03-10 05:09] LABS: Absolute Lymphocyte Count 2.06 X10^3/uL (0.83-4.51); Absolute Neutrophil Count 4.7 X10^3/uL (2.0-7.7); Basophil# 0.07 X10^3/uL; Basophil% 0.9 % (0-1); Eosinophil# 0.35 X10^3/uL; Eosinophils% 4.3 % (0-5); Hematocrit 45.1 % (40-54); Hemoglobin 14.1 g/dL (13.0-16.5); Lymphocyte # 2.06 X10^3/ul (0.83-4.51); Lymphocyte % 25.6 % (19-41); Mean Corp Hgb Conc 31.3 g/dL (32-36); Mean Corpuscular Hgb 28.3 pg (27.0-32.0); Mean Corpuscular Volume 90.4 fL (80-94); Mean Platelet Vol. 8.9 fl (6.2-12.0); Monocyte% 9.9 % (0-10); NRBC Flagged by Analyzer 0 % (0-5); Neutrophil # 4.73 X10^3/uL (2.7-7.7); Neutrophil % 58.8 % (47-70); Platelet Count 337 K/mm3 (150-450); RBC Distribution Width CV 13.2 % (11.6-14.6); RBC Distribution Width SD 43.8 fl (35.1-43.9); Red Blood Count 4.99 M/mm3 (4.6-6.2); White Blood Count 8.1 K/mm3 (4.4-11.0)
[2021-03-10 05:26] LABS: ALB/GLOB Ratio 0.5 RATIO (0.9-2.4); AST(SGOT) 19 U/L (15-37); Alanine Aminotransfer ALT/SGPT 20 U/L (16-61); Albumin, Serum 2.4 g/dL (3.2-5.0); Alkaline Phosphatase 86 U/L (45-117); Anion Gap 3 (5-15); BUN 31 mg/dL (7-18); BUN/Creat Ratio 34.9 RATIO (10-20); Calcium,Total 8.9 mg/dL (8.5-10.1); Chloride 105 mmol/L (98-107); Creatinine, Serum 0.89 mg/dL (0.70-1.30); EST Glomerular Filtration Rate 92 mL/min (>60); Est Glom Filt Rate - Afr Amer 112 mL/min (>60); Globulin 4.8 g/dL (2.2-4.2); Glucose 171 mg/dL (74-106); Potassium 4.1 mmol/L (3.5-5.1); Protein, Total 7.2 g/dL (6.4-8.2); Sodium Level 134 mmol/L (136-145)
[2021-03-10 07:50] LABS: Bedside Glucose 155 mg/dL (70-110)
[2021-03-10] MEDS: Insulin Lispro 100 UNIT/ML INSULN.PEN SC ×2 (09:22→12:16)
[2021-03-10] MEDS: Insulin Lispro 100 UNIT/ML INSULN.PEN 13 UNIT SC ×2 (09:26→12:16)
[2021-03-10] MEDS: Enoxaparin 40 MG/0.4 ML Syringe SC (09:27)
--- NOTE | 2021-03-10 11:23 | PCM.PN.HOSP ---
Subjective Subjective Patient was seen and examined. No new complaints. No acute events overnight. Objective Data Objective Data Vital Signs: Vital Signs Temp Pulse Resp BP Pulse Ox 98.0 F 80 16 92/60 97 03/10/21 02:46 03/10/21 02:46 03/10/21 02:46 03/10/21 02:46 03/10/21 02:46 Oxygen Delivery Method Room Air Weight: 85.2 kg Body Mass Index (BMI) 26.9 Finger Stick Blood Glucose 415 Intake & Output: Intake and Output for Last 24 Hours 03/08/21 03/09/21 03/10/21 23:59 23:59 23:59 Intake Total 2910 / 2910 2160 / 2160 630 / 630 Output Total 3725 / 3725 1625 / 1625 1050 / 1050 Balance -815 / -815 535 / 535 -420 / -420 Lab / Micro Data Result Diagrams: 03/10/21 05:02 03/10/21 05:02 Labs: Laboratory Results - last 24 hr 03/09/21 03/09/21 03/09/21 12:37 17:04 21:45 WBC RBC Hgb Hct MCV MCH MCHC RDW Std Deviation RDW Coeff of Cheri Plt Count MPV Immature Gran % (Auto) Neut % (Auto) Lymph % (Auto) [place] % (Auto) Eos % (Auto) Baso % (Auto) Absolute Neuts (auto) Absolute Lymphs (auto) Nucleated RBC % Sodium Potassium Chloride Carbon Dioxide Anion Gap BUN Creatinine Estim Creat Clear Calc Est GFR (MDRD) Af Amer Est GFR (MDRD) Non-Af BUN/Creatinine Ratio Glucose Calcium Total Bilirubin AST ALT Alkaline Phosphatase Total Protein Albumin Globulin Albumin/Globulin Ratio POC Glucose 206 H 213 H 234 H 03/10/21 03/10/21 03/10/21 05:02 05:02 07:43 WBC 8.1 RBC 4.99 Hgb 14.1 Hct 45.1 MCV 90.4 MCH 28.3 MCHC 31.3 L RDW Std Deviation 43.8 RDW Coeff of Cheri 13.2 Plt Count 337 MPV 8.9 Immature Gran % (Auto) 0.500 Neut % (Auto) 58.8 Lymph % (Auto) 25.6 [place] % (Auto) 9.9 Eos % (Auto) 4.3 Baso % (Auto) 0.9 Absolute Neuts (auto) 4.7 Absolute Lymphs (auto) 2.06 Nucleated RBC % 0 Sodium 134 L Potassium 4.1 Chloride 105 Carbon Dioxide 26.0 Anion Gap 3 L BUN 31 H Creatinine 0.89 Estim Creat Clear Calc 90.00 Est GFR (MDRD) Af Amer 112 Est GFR (MDRD) Non-Af 92 BUN/Creatinine Ratio 34.9 H Glucose 171 H Calcium 8.9 Total Bilirubin 0.20 AST 19 ALT 20 Alkaline Phosphatase 86 Total Protein 7.2 Albumin 2.4 L Globulin 4.8 H Albumin/Globulin Ratio 0.5 L POC Glucose 155 H Micro: Microbiology 03/05/21 10:05 Blood Culture (Wb) - Femoral Artery Blood Culture - Final No growth in 5 days. 03/05/21 10:10 Blood Culture (Wb) - Femoral Artery Blood Culture - Final Meth. resistant Staph. aureus Physical Exam Narrative General: Alert, Oriented x3, Cooperative HEENT: Atraumatic, PERRLA, EOMI, Normocephalic Oral: No Gingival or Mucosal Lesions/ Ulcerations Neck: Supple, No JVD, Negative Carotid Bruits Lungs: Air entry diminished in bilateral lung bases. Cardiovascular: Regular rate, Regular Rhythm, Normal S1, Normal S2, No murmurs Abdomen: Bowel Sounds Present, Soft, Non Tender, Non-Distended : No renal angle tenderness. No suprapubic tenderness. Extremities: Mild left foot edema, Capillary Refill Less than 3 Seconds Skin: Left heel deep ulcer, oval in shape. Wound VAC applied. Diabetic ulcer Musculoskeletal: No Tenderness to Palpation of Joints or Extremities Neurological: Decreased gross sensation over left foot and heel. Left great toe position sense intact. Psych/Mental Status:Flat Assessment & Plan Assessment/Plan (1) 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: PLAN: MRSA (2) Type 2 diabetes mellitus with diabetic polyneuropathy: QUALIFIERS: Diabetes mellitus ferry terminal supervisor insulin use: without ferry terminal supervisor use Qualified Code(s): E11.42 - Type 2 diabetes mellitus with diabetic polyneuropathy (3) Malnutrition of moderate degree: (4) Bacteremia: (5) Osteomyelitis of ankle and foot: PLAN: 1. Acute on chronic left heel MRSA diabetic ulcer/mild to moderate osteomyelitis of the posterior process of the calcaneus MRI of the left leg done on 03/06/21 shows above. Wound cultures on shows MRSA, Proteus mirabilis, Morganella morganii BKA recommended, plastic surgery consulted, recommended doing the surgery in a couple of weeks Podiatry and ID following; Continue on IV vancomycin and Zosyn 2. MRSA bacteremia, continue on IV vancomycin,2D echo Blood cultures on shows MRSA 3. Moderate protein calorie malnutrition, transportation lead consulted 4. Diabetes mellitus type 2 with diabetic neuropathy, HbA1c is 7.3, blood sugars are better controlled today Patient had episode of hypoglycemia on 03/06/21. Home Lantus continued at 50 units and home lispro 13 units 3 times daily Continue with insulin sliding scale Visit Charges Inpatient E&M: 12783 Subs Hosp L2
[2021-03-10 11:25] LABS: Bedside Glucose 235 mg/dL (70-110)
[2021-03-10 12:09] VITALS: BP 135/79; PULSE 78; RESP 16; TEMP 36.4; O2SAT 98
[2021-03-10] MEDS: Acetaminophen 325 MG Tablet 650 MG PO ×2 (12:20→22:30)
--- NOTE | 2021-03-10 13:32 | PCM.PN.ID ---
Physical Exam Narrative Feeling ok, wants to go home, no fever Const alert General Appearance: cooperative Resp normal air movement and clear to auscultation bilaterally Cardio regular rate and regular rhythm GI normal to inspection, nondistended, normoactive bowel sounds Skin Skin Narrative: foot wrapped ID ID: Route of nutrition/ use of supplements: [] Nutritional Intake: [] IV Site: [] Wilkinson Catheter: [] Assessment & Plan Assessment/Plan (1) Infection of left foot: PLAN: MRSA bacteremia due to recurrent L foot osteo - wound cx with MRSA, proteus, morganella. Bcx neg since 03/08. TTE showed no veg. Concern for endocarditis with splinter hemorrhages on L middle finger. Pt interested in amputation, seen by Dr. Gallego. Will plan on 6 weeks of abx, vanc to stop 04/19, ertapenem to stop 04/14/21. Weekly bmp, cbc, LFT, esr, and vanc trough. Wrote rx. Plan on picc tomorrow as long as bcx remain neg. Will follow, d/w transplant case manager
--- NOTE | 2021-03-10 13:46 | CASEMGMT ---
Addendum entered by Marine Martin 03/10/21 15:31: Per Dr Floyd, if BUCK and B/C's are negative and pt able to get PICC line inserted tomorrow, anticipate pt will be ready for discharge tomorrow. Call received from Anmol @ [facility]. They are able to accept pt for SOC on Monday AM, with the earliest available being [phone]. Pt currently getting Vanco IV @ 0200 and 1400. Call placed to isamar Duong. Per Ad, if pt receives IV Vanco tomorrow () @ 1400 prior to discharge, then he states it would be okay for next IV Vanc dose to be given @ home around 07/0800 on Monday AM. Call placed back to Anmol and she was made aware. Awaiting B/C's and PICC insertion, as well as PICC insertion. CM to follow and coordinate SOC for HHC through [facility] and delivery of atb's by [facility] for IV atb's @ discharge. Original Note: SALMA MCCAULEY NOTE: Per Dr De Leon, pt to be discharged on IV Ertapenem daily and IV Vanco Q 12 hrs. SALMA CM to room to talk w/pt and to discuss discharge planning. Pt made aware of need for IV atb's for approx 6 weeks. Discussed options of SNF vs HHC. Pt states, I'm not gonna go to no [facility]. I've been to so many of them and I want to go home. He was made aware with the 2 different atb's ordered, that he would need to administer an IV atb's 3 x's/day. He was made aware HHC would not be able to come to his home to give the atb's that frequently and they also, most likely, would not be able to come daily--that they would need to do teaching with him for him to self administer. Pt states, I'm independent and I watched them do them at the prison and I can learn to do them. Call placed to Sol @ [facility], where pt is currently active with. She was made aware pt will d/c'ing home on IV atb's. She states they do not have the staffing for IV atb's and unable to continue to follow pt. She states they will discharge pt from their services effective today 03/10. Pt made aware of same and given list of C providers including quality and resource use data and consistent with the patient's preferred geographic region, medical needs, and insurance network. The pt's states he has no preference at all and would not give RN CM any other preferences, stating as long as RN CM can find someone so he can get home as soon as possible. Also discussed options for Infusion Co and provided w/list of Infusion companies. Pt again states does not have a preference as long as I can get out of here as soon as possible. I want to get home to see my family. Pt does not have PCP listed. Per Sol at [facility] to [facility], Dr Calloway from the W[facility] Center, has been following pt/writing orders for C for wound care. Call placed to Wound center and spoke w/Yolanda to confirm Dr Calloway would be willing to continue to follow pt for HHC. She spoke w/Dr Calloway and confirms Dr Calloway is willing to follow for HHC orders for Wound vac but wishes for Dr De Leon to follow for IV atb's/lab work. Yolanda was made aware [facility] will be discharging pt from their services and another C will be established. Call placed to Anmol @ [facility]. Referral made for SN: wound vac care and IV atb's. Referral packet faxed. Awaiting acceptance. She was made aware Dr Calloway willing to write for HHC orders for the wound vac, but wishes for Dr De Leon to follow/write orders for IV atb's/lab work. Referral packet w/Scripts for IV atb's faxed to [facility]. Call placed to [facility]. She states referral is being reviewed for benefits/coverage. She states Cande is currently working on this and Cande can be reached @ [phone]. Rakesh ROSENBAUM RN, CM
[2021-03-10 14:43] VITALS: BP 120/70; PULSE 82; RESP 16; TEMP 36.5; O2SAT 97
--- NOTE | 2021-03-10 15:15 | CASEMGMT ---
SW received referral for LW/POA. SW met w/pt in room. Upon further discussion, pt does not want to complete LW/POA forms. SW spoke w/him about completing POA, as he does not have any close family, just cousins. Pt reports friends to be his primary support and Alondra as his main support. Pt does not want to complete POA however and put down Alondra. SW explained that without the document, should POA be needed we would need ot speak to his cousins, or even possibly get a guardian. Pt states his cousins want nothing to do with him. Pt states he just wants to do LW. SW spoke w/pt about LW, he actually wants to do a will for his belongings, not a living will. SW explained that this SW cannot do a will for pt, can do LW and POA. Pt states understanding. SW offered pt the LW/POA documents, he did not want them, told SW to keep them. SW also spoke w/pt about his medical condition and what's been gong on. Pt expressed frustration with not being able to get his foot amputated now, and having been in and out of nursing homes. Pt stated tearfully that he had not been able to see his friends, and has been in and out of nursing homes since July. Pt plans to return home from here however, and will be able to see his friends. Support offered to pt. No further social service needs are anticipated at this time, though SW does remain available for any additional social service needs. MASSIEL Crisostomo
[2021-03-10 16:11] LABS: Bedside Glucose 134 mg/dL (70-110)
[2021-03-10 20:30] VITALS: BP 131/64; PULSE 87; RESP 16; RESP 18; TEMP 36.9; O2SAT 93
[2021-03-10 23:40] LABS: Bedside Glucose 255 mg/dL (70-110)
[2021-03-11] VITALS (7 sets, daily range): BP systolic 105–129; BP diastolic 50–65; PULSE 65–86; RESP 16; TEMP 36.6–37; O2SAT 94–99
[2021-03-11] MEDS: oxyCODONE 5 MG Tablet PO ×3 (02:11→21:46)
--- NOTE | 2021-03-11 05:55 | ECHOTEE_ITS ---
Reason For Study: MRSA BACTEREMIA Medication BUCK probe 6VT-D (SN [id number]) passed without difficulty. No complications were noted. Cetacaine Topical Lissie given X3 orally. Versed .5 mg given slow IVP. Fentanyl .25 mcg given slow IVP. Performed a rapid injection of agitated mix of 9 cc saline and 1cc air to assess for atrial septal defect. Left Ventricle Normal LV size. Left ventricular systolic function is normal. The estimated ejection fraction is 65 %. No regional wall motion abnormalities noted. Right Ventricle Normal RV size. Normal systolic function. Atria No doppler evidence for ASD. Bubble contrast study negative for right to left interatrial shunt. Normal left atrium. There is no sponatenous contrast in the left atrium. No thrombus is detected in the left atrial appendage. Normal right atrium. There is no sponatenous contrast in the right atrium. No right atrial/appendage thrombus identified. Mitral Valve There is no mitral annular calcification. Normal mitral valve. Trivial mitral valve insufficiency. Tricuspid Valve Normal tricuspid valve. Trivial tricuspid valve insufficiency. Aortic Valve Trisinus/trileaflet aortic valve. Normal aortic valve. Pulmonic Valve The pulmonic valve is not well visualized. Vessels Mild atherosclerosis of the descending aorta. Pericardium No pericardial effusion. ECHO/Echo Transesophageal (BUCK) Interpretation Summary Left ventricular systolic function is normal. The estimated ejection fraction is 65 %. There is no sponatenous contrast in the left atrium. No thrombus is detected in the left atrial appendage. Trivial mitral valve insufficiency. Trivial tricuspid valve insufficiency. Bubble contrast study negative for right to left interatrial shunt. Mild atherosclerosis of the descending aorta. Ordering Physician: Anay Soto Performed By: Ariadne Evans, RDCS, RVT
[2021-03-11 06:05] LABS: Absolute Lymphocyte Count 1.78 X10^3/uL (0.83-4.51); Absolute Neutrophil Count 5.4 X10^3/uL (2.0-7.7); Basophil# 0.05 X10^3/uL; Basophil% 0.6 % (0-1); Eosinophils% 3.6 % (0-5); Hematocrit 41.5 % (40-54); Hemoglobin 13.4 g/dL (13.0-16.5); Lymphocyte # 1.78 X10^3/ul (0.83-4.51); Lymphocyte % 21.5 % (19-41); Mean Corp Hgb Conc 32.3 g/dL (32-36); Mean Corpuscular Hgb 28.3 pg (27.0-32.0); Mean Corpuscular Volume 87.7 fL (80-94); Mean Platelet Vol. 8.8 fl (6.2-12.0); Monocyte# 0.73 X10^3/uL; Monocyte% 8.8 % (0-10); NRBC Flagged by Analyzer 0 % (0-5); Neutrophil % 65.1 % (47-70); Platelet Count 353 K/mm3 (150-450); RBC Distribution Width CV 13.2 % (11.6-14.6); RBC Distribution Width SD 42.5 fl (35.1-43.9); Red Blood Count 4.73 M/mm3 (4.6-6.2); White Blood Count 8.3 K/mm3 (4.4-11.0)
[2021-03-11 06:29] LABS: ALB/GLOB Ratio 0.6 RATIO (0.9-2.4); AST(SGOT) 14 U/L (15-37); Alanine Aminotransfer ALT/SGPT 20 U/L (16-61); Albumin, Serum 2.5 g/dL (3.2-5.0); Alkaline Phosphatase 83 U/L (45-117); Anion Gap 5 (5-15); BUN 31 mg/dL (7-18); BUN/Creat Ratio 35.1 RATIO (10-20); Calcium,Total 8.9 mg/dL (8.5-10.1); Chloride 106 mmol/L (98-107); Creatinine, Serum 0.88 mg/dL (0.70-1.30); EST Glomerular Filtration Rate 93 mL/min (>60); Est Glom Filt Rate - Afr Amer 112 mL/min (>60); Estimated Creatinine Clearance 91.02 ml/min; Globulin 4.5 g/dL (2.2-4.2); Glucose 163 mg/dL (74-106); Potassium 3.9 mmol/L (3.5-5.1); Sodium Level 138 mmol/L (136-145)
[2021-03-11 07:40] LABS: Bedside Glucose 130 mg/dL (70-110)
--- NOTE | 2021-03-11 07:58 | PCM.PROGNOTE ---
Subjective Subjective Patient was seen this morning, no new complaints. He expresses he would like to proceed with BKA on the left lower extremity. No fever, chills, nausea, vomiting, chest pain, shortness of breath or calf pain. Objective Data Objective Data Vital Signs: Vital Signs Temp Pulse Resp BP Pulse Ox 97.9 F 71 16 107/52 L 94 03/11/21 05:34 03/11/21 05:34 03/11/21 05:34 03/11/21 05:34 03/11/21 05:34 Oxygen Delivery Method Room Air Weight: 85.2 kg Body Mass Index (BMI) 26.9 Finger Stick Blood Glucose 415 Intake & Output: Intake and Output for Last 24 Hours 03/09/21 03/10/21 03/11/21 23:59 23:59 23:59 Intake Total 2160 / 2160 2360 / 2360 580 / 580 Output Total 1625 / 1625 2300 / 2300 500 / 500 Balance 535 / 535 60 / 60 80 / 80 Lab / Micro Data Result Diagrams: 03/11/21 05:45 03/11/21 05:45 Labs: Laboratory Results - last 24 hr 03/10/21 03/10/21 03/10/21 11:18 16:04 23:23 WBC RBC Hgb Hct MCV MCH MCHC RDW Std Deviation RDW Coeff of Cheri Plt Count MPV Immature Gran % (Auto) Neut % (Auto) Lymph % (Auto) [place] % (Auto) Eos % (Auto) Baso % (Auto) Absolute Neuts (auto) Absolute Lymphs (auto) Nucleated RBC % Sodium Potassium Chloride Carbon Dioxide Anion Gap BUN Creatinine Estim Creat Clear Calc Est GFR (MDRD) Af Amer Est GFR (MDRD) Non-Af BUN/Creatinine Ratio Glucose Calcium Total Bilirubin AST ALT Alkaline Phosphatase Total Protein Albumin Globulin Albumin/Globulin Ratio POC Glucose 235 H 134 H 255 H 03/11/21 03/11/21 03/11/21 05:45 05:45 07:32 WBC 8.3 RBC 4.73 Hgb 13.4 Hct 41.5 MCV 87.7 MCH 28.3 MCHC 32.3 RDW Std Deviation 42.5 RDW Coeff of Cheri 13.2 Plt Count 353 MPV 8.8 Immature Gran % (Auto) 0.400 Neut % (Auto) 65.1 Lymph % (Auto) 21.5 [place] % (Auto) 8.8 Eos % (Auto) 3.6 Baso % (Auto) 0.6 Absolute Neuts (auto) 5.4 Absolute Lymphs (auto) 1.78 Nucleated RBC % 0 Sodium 138 Potassium 3.9 Chloride 106 Carbon Dioxide 27.0 Anion Gap 5 BUN 31 H Creatinine 0.88 Estim Creat Clear Calc 91.02 Est GFR (MDRD) Af Amer 112 Est GFR (MDRD) Non-Af 93 BUN/Creatinine Ratio 35.1 H Glucose 163 H Calcium 8.9 Total Bilirubin 0.20 AST 14 L ALT 20 Alkaline Phosphatase 83 Total Protein 7.0 Albumin 2.5 L Globulin 4.5 H Albumin/Globulin Ratio 0.6 L POC Glucose 130 H Micro: Microbiology 03/08/21 13:25 Blood Culture (Wb) - Right Hand Blood Culture - Preliminary No growth in 48 hours. 03/05/21 10:05 Blood Culture (Wb) - Femoral Artery Blood Culture - Final No growth in 5 days. 03/05/21 10:10 Blood Culture (Wb) - Femoral Artery Blood Culture - Final Meth. resistant Staph. aureus Physical Exam Const alert, oriented x3 and no apparent distress General Appearance: cooperative and comfortable Resp normal respiratory effort Effort and Inspection: able to speak in complete sentences Extremity Extremity Narrative: wound vac intact to the left heel. no calf pain bilateral. Assessment & Plan Assessment/Plan (1) Osteomyelitis of ankle and foot: (2) Wound of foot: (3) Infection of left foot: (4) Achilles rupture, left: QUALIFIERS: Encounter type: subsequent encounter Qualified Code(s): S86.012D - Strain of left Achilles tendon, subsequent encounter PLAN: Patient seen and evaluated bedside. Patient has chronic ulcer and osteomyelitis. He has Achilles tendon rupture on the left side as well. Culture obtained 03/03/2021 from the left heel is showing MRSA, Proteus Mirabilis, Morganella Morganni, Blood cultures from 03/05/2021 are positive for staph aureus. Dr. De Leon on consult. His noninvasive vascular studies 10/28/2020 were reviewed with triphasic PT and DP pulses bilateral. His right NADIA is 1.12 and left 1.16. His toe brachial index is 1.12 on the right and 1.34 on the left. There is no significant segmental pressure drop and therefore no arterial occlusive lesion is suspected. MRI 03/05/2021: left lower extremity demonstrated mild to moderate osteomyelitis of the plantar aspect of the posterior process of the calcaneus. Large soft tissue heel ulcer wound noted. The MRI results obtained 03/05/2021 showed no significant interval change from previous MRI obtained 12/09/2020 of which patient has completed a course of antibiotics per infectious disease for treatment of the osteomyelitis between these 2 MRIs. Patient continues to express he would like to proceed with [facility], Dr. Gallego on consult. In meantime continue with antibiotic therapy, and local wound care. Continue with wound vac to the ulcer site. Upon discharge patient to follow up at wound center for continued monitoring of wound until he is able to proceed with BKA.
--- NOTE | 2021-03-11 09:09 | NURSING ---
pt to lynda
--- NOTE | 2021-03-11 10:11 | CASEMGMT ---
Addendum entered by Marine Martin 03/11/21 14:12: B/C's negative and BUCK negative. PICC line has been ordered. Per dynamite packing machine feeder, ETA of PICC nurse will be b/w 1630 and 1700. Per Cande @ [facility], they will not prepare IV atb's until PICC insertion is confirmed and they are only in until 5 PM today. Call placed to [facility]. She was made aware of same. She states they are able to do SOC Monday @ 2 PM for next IV Vanc dose. Call placed to [facility] and spoke w/Cande. She is aware plan for [facility]HC SOC Monday @ 2 PM for next Vanco dose. D/C plan: PICC to be inserted this PM. Pt to receive IV Invanz on Monday AM and then may d/c home. PICC insertion documentation to be faxed to [facility] and to [facility] once it is available. [facility] to deliver IV atb's to pt's home Monday before 2 PM [facility] to do SOC @ 2 PM on Monday for next dose of IV Vanco @ home. Pt made aware of all of the above. Rakesh ROSENBAUM RN, CM Original Note: SALMA MCCAULEY NOTE: Call received from Cande @ [facility] re: financial benefits. Pt has 100% coverage. Rakesh ROSENBAUM RN, CM
[2021-03-11] MEDS: Enoxaparin 40 MG/0.4 ML Syringe SC (10:47)
[2021-03-11 11:11] LABS: Bedside Glucose 101 mg/dL (70-110)
[2021-03-11] MEDS: Acetaminophen 325 MG Tablet 650 MG PO ×2 (12:03→21:45)
--- NOTE | 2021-03-11 12:11 | PCM.DC ---
Discharge Instructions Diet Discharge Diet: Low fat / Low cholesterol, 2000 Calorie Control Diet and 2000 mg Sodium Diet Follow Up Care Test Results: Test results from this visit will be discussed in further detail at your follow-up appointment, if applicable. Discharge Plan Admission Admit Date/Time: 03/05/21 12:17 Primary Reason for Your Visit: Acute osteomyelitis Attending Provider: Jazmine Landaverde Primary Care Provider: Care Physician,Mindi Primary Consulting Providers: Edie Armendariz ; Charles De Leon ; Mauro Gallego Instructions Additional Instructions / Restrictions: He will be discharged IV antibiotics. Follow-up with podiatry recommendations. Follow-up with Dr. Gallego in the outpatient. Discharge Orders/Prescriptions Prescriptions: New vancomycin in 0.9 % sodium chl 1.5 gram/500 mL solution 1.5 g IV Q12H 40 Days Qty: 80 RF: 0 ertapenem 1 gram recon soln 1 g IV Q24H 35 Days Qty: 35 RF: 0 Continued insulin glargine 100 unit/mL (3 mL) insulin pen 50 unit SC QHS 30 Days Qty: 15 RF: 3 (DME) lancets [OneTouch UltraSoft Lancets] Misc See Rx Instructions .ROUTE .MEDSUPPLY Qty: 200 RF: 3 (DME) pen needle, diabetic [Comfort EZ Pen [place]] 31 gauge x 3/16 needle See Rx Instructions .ROUTE .MEDSUPPLY Qty: 100 RF: 3 insulin lispro 100 unit/mL insulin pen 8 unit SUBCUT TIDCM RF: 0 (DME) OneTouch Ultra Blue Test Strip Strip See Rx Instructions .ROUTE .MEDSUPPLY Qty: 200 RF: 3 Referrals / Follow Up: Care Physician,No Primary [Primary Care Provider] - Within 2 Weeks Mauro Gallego MD [STAFF PHYSICIAN] - Within 2 Weeks Edie Armendariz DPM [STAFF PHYSICIAN] - In 1 Week Charles De Leon MD [STAFF PHYSICIAN] - Within 2 Weeks Disposition Disposition (needs filled in before D/C Order can be placed): Home Health Service
--- NOTE | 2021-03-11 12:20 | PCM.DC.SUM ---
Providers Date of Admission: 03/05/21 Date of Discharge: 03/11/21 Primary Care Physician: Mindi Primary Care Phys Consultations 03/05/21 12:41 Consult: Infectious Disease Routine Consulting Provider: Charles De Leon Reason for Consult: DIABETIC LEFT HEEL, DEEP ULCER EMERGENT Consult: No Notified: Yes Date Notified:: 03/05/21 Time Notified: 12:12 Method of Notification: Verbal Consult: Onc/Wound/nanny babysitter Routine Comment: Reason for Consult:: Left heel diabetic ulcer Consult: Podiatry Routine Consulting Provider: Edie Armendariz Reason for Consult: Left heel ulcer, nonhealing EMERGENT Consult: No MD Notified: Yes Date Notified:: 03/05/21 Time Notified: 12:12 Method of Notification: Page 03/08/21 15:29 Consult: General Surgery Routine Consulting Provider: Mauro Gallego Reason for Consult: BKA EMERGENT Consult: No MD Notified: Yes Date Notified:: 03/08/21 Time Notified: 15:29 Method of Notification: Verbal Method of Consult:: In-Person Comments:: Dr. 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: Status: Chronic Code(s): E11.621 - Type 2 diabetes mellitus with foot ulcer; L97.529 - Non-pressure chronic ulcer of other part of left foot with unspecified severity (3) Osteomyelitis of ankle and foot: Status: Chronic Code(s): M86.9 - Osteomyelitis, unspecified (4) Bacteremia: Status: Acute Code(s): R78.81 - Bacteremia (5) Diabetes: Status: Chronic Code(s): E11.9 - Type 2 diabetes mellitus without complications (6) MRSA cellulitis of left foot: Status: Acute Code(s): L03.116 - Cellulitis of left lower limb; B95.62 - Methicillin resistant Staphylococcus aureus infection as the cause of diseases classified elsewhere Medications at Discharge Home Medications insulin glargine 100 unit/mL (3 mL) subcutaneous pen 50 unit SC QHS 30 Days #15 ml 01/26/21 blood sugar diagnostic #200 each 01/28/21 lancets #200 each 02/03/21 pen needle, diabetic 31 gauge x 3/16 #100 each 02/03/21 insulin lispro 8 unit SUBCUT TIDCM 03/05/21 ertapenem 1 g IV Q24H 35 Days #35 ea 03/10/21 vancomycin in 0.9 % sodium chl 1.5 g IV Q12H 40 Days #80 bag 03/10/21 Hospital Course Operations None Procedures 2-D Echocardiogram and Transesophageal Echo Summary of Care Provided Minutes Spent on Discharge: 45 Hospital Course: 60-year-old with chronic left foot osteomyelitis/heel diabetic ulcer who presented to the hospital with worsening left heel skin breakdown. He had a previous wound culture that grew Proteus mirabilis, MRSA, Morganella. His blood cultures came back positive for MRSA bacteremia. 2D echo as well as BUCK were negative. Patient follows with Dr. Calloway in the outpatient. Patient had MRI of the left leg that showed mild to moderate osteomyelitis of the posterior process of the calcaneus. Podiatry and ID were consulted. Wound cultures on 03/03/21 shows MRSA, Proteus mirabilis, Morganella morganii BKA recommended, plastic surgery consulted, recommended doing the surgery in a couple of weeks. Patient was discharged on IV ertapenem through PICC line. He will follow-up with plastic surgery for BKA in a couple of weeks. Patient will be followed up by home health. Physical Exam Narrative General: Alert, Oriented x3, Cooperative HEENT: Atraumatic, PERRLA, EOMI, Normocephalic Oral: No Gingival or Mucosal Lesions/ Ulcerations Neck: Supple, No JVD, Negative Carotid Bruits Lungs: Air entry diminished in bilateral lung bases. Cardiovascular: Regular rate, Regular Rhythm, Normal S1, Normal S2, No murmurs Abdomen: Bowel Sounds Present, Soft, Non Tender, Non-Distended : No renal angle tenderness. No suprapubic tenderness. Extremities: Mild left foot edema, Capillary Refill Less than 3 Seconds Skin: Left heel deep ulcer, oval in shape. Wound VAC applied. Diabetic ulcer Musculoskeletal: No Tenderness to Palpation of Joints or Extremities Neurological: Left leg dressing intact Psych/Mental Status:Flat ABG / Lab / Microbiology Data Result Diagrams: 03/11/21 05:45 03/11/21 05:45 Laboratory: Laboratory Results - last 24 hr 03/10/21 03/10/21 03/11/21 16:04 23:23 05:45 WBC 8.3 RBC 4.73 Hgb 13.4 Hct 41.5 MCV 87.7 MCH 28.3 MCHC 32.3 RDW Std Deviation 42.5 RDW Coeff of Cheri 13.2 Plt Count 353 MPV 8.8 Immature Gran % (Auto) 0.400 Neut % (Auto) 65.1 Lymph % (Auto) 21.5 [place] % (Auto) 8.8 Eos % (Auto) 3.6 Baso % (Auto) 0.6 Absolute Neuts (auto) 5.4 Absolute Lymphs (auto) 1.78 Nucleated RBC % 0 Sodium Potassium Chloride Carbon Dioxide Anion Gap BUN Creatinine Estim Creat Clear Calc Est GFR (MDRD) Af Amer Est GFR (MDRD) Non-Af BUN/Creatinine Ratio Glucose Calcium Total Bilirubin AST ALT Alkaline Phosphatase Total Protein Albumin Globulin Albumin/Globulin Ratio POC Glucose 134 H 255 H 03/11/21 03/11/21 03/11/21 05:45 07:32 11:04 WBC RBC Hgb Hct MCV MCH MCHC RDW Std Deviation RDW Coeff of Cheri Plt Count MPV Immature Gran % (Auto) Neut % (Auto) Lymph % (Auto) [place] % (Auto) Eos % (Auto) Baso % (Auto) Absolute Neuts (auto) Absolute Lymphs (auto) Nucleated RBC % Sodium 138 Potassium 3.9 Chloride 106 Carbon Dioxide 27.0 Anion Gap 5 BUN 31 H Creatinine 0.88 Estim Creat Clear Calc 91.02 Est GFR (MDRD) Af Amer 112 Est GFR (MDRD) Non-Af 93 BUN/Creatinine Ratio 35.1 H Glucose 163 H Calcium 8.9 Total Bilirubin 0.20 AST 14 L ALT 20 Alkaline Phosphatase 83 Total Protein 7.0 Albumin 2.5 L Globulin 4.5 H Albumin/Globulin Ratio 0.6 L POC Glucose 130 H 101 Microbiology: Microbiology 03/11/21 07:35 SARS-CoV-2 Antigen (Rapid) - Final Interface Orders 03/09/21 10:15 Blood Culture - Preliminary Blood Culture (Wb) - Anticubital Right No growth in 48 hours. 03/08/21 13:25 Blood Culture - Preliminary Blood Culture (Wb) - Right Hand No growth in 48 hours. 03/05/21 10:05 Blood Culture - Final Blood Culture (Wb) - Femoral Artery No growth in 5 days. Microbiology 03/11/21 07:35 Interface Orders SARS-CoV-2 Antigen (Rapid) - Final 03/09/21 10:15 Blood Culture (Wb) - Anticubital Right Blood Culture - Preliminary No growth in 48 hours. 03/08/21 13:25 Blood Culture (Wb) - Right Hand Blood Culture - Preliminary No growth in 48 hours. 03/05/21 10:05 Blood Culture (Wb) - Femoral Artery Blood Culture - Final No growth in 5 days. 03/05/21 10:10 Blood Culture (Wb) - Femoral Artery Blood Culture - Final Meth. resistant Staph. aureus D/C Instructions Discharge Diet: Low fat / Low cholesterol, 2000 Calorie Control Diet and 2000 mg Sodium Diet Meaningful Use Info Meaningful Use Diagnoses (Choose all that apply): None applicable Discharge Plan Admission Admit Date/Time: 03/05/21 12:17 Primary Reason for Your Visit: Acute osteomyelitis Attending Provider: Jazmnie Landaverde Primary Care Provider: Care Physician,Mindi Primary Consulting Providers: Edie Armendariz ; Charles De Leon ; Mauro Gallego Instructions Additional Instructions / Restrictions: He will be discharged IV antibiotics. Follow-up with podiatry recommendations. Follow-up with Dr. Gallego in the outpatient. Discharge Orders/Prescriptions Prescriptions: New vancomycin in 0.9 % sodium chl 1.5 gram/500 mL solution 1.5 g IV Q12H 40 Days Qty: 80 RF: 0 ertapenem 1 gram recon soln 1 g IV Q24H 35 Days Qty: 35 RF: 0 Continued insulin glargine 100 unit/mL (3 mL) insulin pen 50 unit SC QHS 30 Days Qty: 15 RF: 3 (DME) lancets [OneTouch UltraSoft Lancets] Misc See Rx Instructions .ROUTE .MEDSUPPLY Qty: 200 RF: 3 (DME) pen needle, diabetic [Comfort EZ Pen [place]] 31 gauge x 3/16 needle See Rx Instructions .ROUTE .MEDSUPPLY Qty: 100 RF: 3 insulin lispro 100 unit/mL insulin pen 8 unit SUBCUT TIDCM RF: 0 (DME) OneTouch Ultra Blue Test Strip Strip See Rx Instructions .ROUTE .MEDSUPPLY Qty: 200 RF: 3 Referrals / Follow Up: Mauro Gallego MD [STAFF PHYSICIAN] - Within 2 Weeks Edie Armendariz DPM [STAFF PHYSICIAN] - In 1 Week Charles De Leon MD [STAFF PHYSICIAN] - Within 2 Weeks Care Physician,No Primary [Primary Care Provider] - Within 2 Weeks Disposition Disposition (needs filled in before D/C Order can be placed): Home Health Service Visit Charges Inpatient E&M: 63342 Disch Hosp
--- NOTE | 2021-03-11 12:59 | DCINST_ITS ---
Discharge Instructions Diet Discharge Diet: Low fat / Low cholesterol, 2000 Calorie Control Diet and 2000 mg Sodium Diet Activity Weight Bearing Status: No weight bearing (No weightbearing left foot.) Additional Activity Instructions:: Keep left foot elevated and heel offloaded so there is no pressure on the heel. Dressing / Incision Call your doctor if your incision/area has: Continuous Slow Oozing, Sudden Increased Bleeding, Increased Pain/ Swelling, Increased Redness and Foul Smelling Discharge Call your doctor if you observe: Fever of 101 or Higher, Shortness of breath, Chest pain and Calf discomfort Additional Dressing/Incision Instructions:: Wound care left heel: Continue with wound vac dressing changes q48-72 hours. Wound vac was last reapplied 03/10/2021. Cleanse wound with normal saline solution with each dressing change. Wound vac settings: 150mmHg continuous. Follow Up Care Please Follow Up With: Deann Calloway DPM When: 03/17/2021 at wound center, call to schedule appointment. Test Results: Test results from this visit will be discussed in further detail at your follow-up appointment, if applicable. Discharge Plan Admission Admit Date/Time: 03/05/21 12:17 Primary Reason for Your Visit: Acute osteomyelitis Attending Provider: Jazmine Landaverde Primary Care Provider: Care Physician,No Primary Consulting Providers: Edie Armendariz ; Charles De Leon ; Mauro Gallego Instructions Additional Instructions / Restrictions: He will be discharged IV antibiotics. Follow-up with podiatry recommendations. Follow-up with Dr. Gallego in the outpatient. Discharge Orders/Prescriptions Prescriptions: New vancomycin in 0.9 % sodium chl 1.5 gram/500 mL solution 1.5 g IV Q12H 40 Days Qty: 80 RF: 0 ertapenem 1 gram recon soln 1 g IV Q24H 35 Days Qty: 35 RF: 0 Continued insulin glargine 100 unit/mL (3 mL) insulin pen 50 unit SC QHS 30 Days Qty: 15 RF: 3 (DME) lancets [OneTouch UltraSoft Lancets] Misc See Rx Instructions .ROUTE .MEDSUPPLY Qty: 200 RF: 3 (DME) pen needle, diabetic [Comfort EZ Pen [place]] 31 gauge x 3/16 needle See Rx Instructions .ROUTE .MEDSUPPLY Qty: 100 RF: 3 insulin lispro 100 unit/mL insulin pen 8 unit SUBCUT TIDCM RF: 0 (DME) OneTouch Ultra Blue Test Strip Strip See Rx Instructions .ROUTE .MEDSUPPLY Qty: 200 RF: 3 Referrals / Follow Up: Mauro Gallego MD [STAFF PHYSICIAN] - Within 2 Weeks Edie Armendariz DPM [STAFF PHYSICIAN] - In 1 Week Charles De Leon MD [STAFF PHYSICIAN] - Within 2 Weeks Care Physician,No Primary [Primary Care Provider] - Within 2 Weeks Disposition Disposition (needs filled in before D/C Order can be placed): Home Health Service
--- NOTE | 2021-03-11 13:50 | PHA.DC.MR ---
Pharmacy Service has performed discharge medication reconciliation for this patient. Home Medications insulin glargine 100 unit/mL (3 mL) subcutaneous pen 50 unit SC QHS 30 Days #15 ml 01/26/21 insulin lispro 8 unit SUBCUT TIDCM 03/05/21 ertapenem 1 g IV Q24H 35 Days #35 ea 03/10/21 vancomycin in 0.9 % sodium chl 1.5 g IV Q12H 40 Days #80 bag 03/10/21 The patient's discharge medication list was reviewed for discrepancies and discrepancies were resolved.
[2021-03-11 14:32] LABS: Vancomycin, Trough Level 25.7 ug/mL (5.0-15.0)
--- NOTE | 2021-03-11 14:56 | PCM.RX.CS ---
Consult Pharmacy has been consulted to manage selected antiobiotic: Vancomycin Type of Consult: Follow-up Suspected Infection: Osteomyelitis Labs: Sodium 138 mmol/L (136-145) 03/11/21 05:45 Potassium 3.9 mmol/L (3.5-5.1) 03/11/21 05:45 Chloride 106 mmol/L (98-107) 03/11/21 05:45 Carbon Dioxide 27.0 mmol/L (21.0-32.0) 03/11/21 05:45 Anion Gap 5 (5-15) 03/11/21 05:45 BUN 31 mg/dL (7-18) H 03/11/21 05:45 Creatinine 0.88 mg/dL (0.70-1.30) 03/11/21 05:45 Est GFR (MDRD) Af Amer 112 mL/min (>60) 03/11/21 05:45 Est GFR (MDRD) Non-Af 93 mL/min (>60) 03/11/21 05:45 BUN/Creatinine Ratio 35.1 RATIO (10-20) H 03/11/21 05:45 Glucose 163 mg/dL (74-106) H 03/11/21 05:45 Vancomycin Trough 25.7 ug/mL (5.0-15.0) H 03/11/21 13:30 Microbiology: Microbiology 03/11/21 07:35 Interface Orders SARS-CoV-2 Antigen (Rapid) - Final 03/09/21 10:15 Blood Culture (Wb) - Anticubital Right Blood Culture - Preliminary No growth in 48 hours. 03/08/21 13:25 Blood Culture (Wb) - Right Hand Blood Culture - Preliminary No growth in 48 hours. 03/05/21 10:05 Blood Culture (Wb) - Femoral Artery Blood Culture - Final No growth in 5 days. 03/05/21 10:10 Blood Culture (Wb) - Femoral Artery Blood Culture - Final Meth. resistant Staph. aureus Goal Trough: 15-20 mcg/mL Pharmacy Plan for Drug Dosing: VANCOMYCIN LEVEL RECEIVED Current Vancomycin Dose: 1500mg IV q12h (,) Number of Doses Received: 1250mg IV x1, 1500mg IV x12 Vancomycin Level: 25.7 Hours Since Last Dose: 11.5 Renal Function: SrCr 0.88 Renal Function Trend: stable Lab/Micro: Vancomycin Plan/Comments: trough level resulted at 25.7. pt received following dose. will hold subsequent doses and get a level for 03/12/21 at 1330 Pending Level: 03/12/21 at 1330 Pharmacy Service will continue to monitor and adjust dosing as required. Follow-Up Labs: Trough Vancomycin - 03/12/21 at 1330
[2021-03-11 16:25] LABS: Bedside Glucose 267 mg/dL (70-110)
--- NOTE | 2021-03-11 17:01 | PCM.PN.HOSP ---
Subjective Subjective Patient was seen and examined. Could not be discharged because PICC line could not be placed oxalates. Home health team cannot reliably see patient. Patient will be discharged in a.m. Objective Data Objective Data Vital Signs: Vital Signs Temp Pulse Resp BP Pulse Ox 97.8 F 80 16 129/56 H 99 03/11/21 14:15 03/11/21 14:15 03/11/21 14:15 03/11/21 14:15 03/11/21 14:15 Oxygen Delivery Method Room Air Weight: 85.2 kg Body Mass Index (BMI) 26.9 Intake & Output: Intake and Output for Last 24 Hours 03/09/21 03/10/21 03/11/21 23:59 23:59 23:59 Intake Total 2160 / 2160 2360 / 2360 1320.00 / 1320.00 Output Total 1625 / 1625 2300 / 2300 1000 / 1000 Balance 535 / 535 60 / 60 320.00 / 320.00 Lab / Micro Data Result Diagrams: 03/11/21 05:45 03/11/21 05:45 Labs: Laboratory Results - last 24 hr 03/10/21 03/11/21 03/11/21 23:23 05:45 05:45 WBC 8.3 RBC 4.73 Hgb 13.4 Hct 41.5 MCV 87.7 MCH 28.3 MCHC 32.3 RDW Std Deviation 42.5 RDW Coeff of Cheri 13.2 Plt Count 353 MPV 8.8 Immature Gran % (Auto) 0.400 Neut % (Auto) 65.1 Lymph % (Auto) 21.5 [place] % (Auto) 8.8 Eos % (Auto) 3.6 Baso % (Auto) 0.6 Absolute Neuts (auto) 5.4 Absolute Lymphs (auto) 1.78 Nucleated RBC % 0 Sodium 138 Potassium 3.9 Chloride 106 Carbon Dioxide 27.0 Anion Gap 5 BUN 31 H Creatinine 0.88 Estim Creat Clear Calc 91.02 Est GFR (MDRD) Af Amer 112 Est GFR (MDRD) Non-Af 93 BUN/Creatinine Ratio 35.1 H Glucose 163 H Calcium 8.9 Total Bilirubin 0.20 AST 14 L ALT 20 Alkaline Phosphatase 83 Total Protein 7.0 Albumin 2.5 L Globulin 4.5 H Albumin/Globulin Ratio 0.6 L Vancomycin Trough POC Glucose 255 H 03/11/21 03/11/21 03/11/21 07:32 11:04 13:30 WBC RBC Hgb Hct MCV MCH MCHC RDW Std Deviation RDW Coeff of Cheri Plt Count MPV Immature Gran % (Auto) Neut % (Auto) Lymph % (Auto) [place] % (Auto) Eos % (Auto) Baso % (Auto) Absolute Neuts (auto) Absolute Lymphs (auto) Nucleated RBC % Sodium Potassium Chloride Carbon Dioxide Anion Gap BUN Creatinine Estim Creat Clear Calc Est GFR (MDRD) Af Amer Est GFR (MDRD) Non-Af BUN/Creatinine Ratio Glucose Calcium Total Bilirubin AST ALT Alkaline Phosphatase Total Protein Albumin Globulin Albumin/Globulin Ratio Vancomycin Trough 25.7 H POC Glucose 130 H 101 03/11/21 16:14 WBC RBC Hgb Hct MCV MCH MCHC RDW Std Deviation RDW Coeff of Cheri Plt Count MPV Immature Gran % (Auto) Neut % (Auto) Lymph % (Auto) [place] % (Auto) Eos % (Auto) Baso % (Auto) Absolute Neuts (auto) Absolute Lymphs (auto) Nucleated RBC % Sodium Potassium Chloride Carbon Dioxide Anion Gap BUN Creatinine Estim Creat Clear Calc Est GFR (MDRD) Af Amer Est GFR (MDRD) Non-Af BUN/Creatinine Ratio Glucose Calcium Total Bilirubin AST ALT Alkaline Phosphatase Total Protein Albumin Globulin Albumin/Globulin Ratio Vancomycin Trough POC Glucose 267 H Micro: Microbiology 03/11/21 07:35 Interface Orders SARS-CoV-2 Antigen (Rapid) - Final 03/09/21 10:15 Blood Culture (Wb) - Anticubital Right Blood Culture - Preliminary No growth in 48 hours. 03/08/21 13:25 Blood Culture (Wb) - Right Hand Blood Culture - Preliminary No growth in 48 hours. 03/05/21 10:05 Blood Culture (Wb) - Femoral Artery Blood Culture - Final No growth in 5 days. 03/05/21 10:10 Blood Culture (Wb) - Femoral Artery Blood Culture - Final Meth. resistant Staph. aureus Radiography Diagnostic Testing: Radiology Impression Transesophageal Echocardiogram 03/11/21 05:55 Interpretation Summary Left ventricular systolic function is normal. The estimated ejection fraction is 65 %. There is no sponatenous contrast in the left atrium. No thrombus is detected in the left atrial appendage. Trivial mitral valve insufficiency. Trivial tricuspid valve insufficiency. Bubble contrast study negative for right to left interatrial shunt. Mild atherosclerosis of the descending aorta. Ordering Physician: Anay Soto Performed By: Ariadne Evans, RDCS, RVT Physical Exam Narrative General: Alert, Oriented x3, Cooperative HEENT: Atraumatic, PERRLA, EOMI, Normocephalic Oral: No Gingival or Mucosal Lesions/ Ulcerations Neck: Supple, No JVD, Negative Carotid Bruits Lungs: Air entry diminished in bilateral lung bases. Cardiovascular: Regular rate, Regular Rhythm, Normal S1, Normal S2, No murmurs Abdomen: Bowel Sounds Present, Soft, Non Tender, Non-Distended : No renal angle tenderness. No suprapubic tenderness. Extremities: Mild left foot edema, Capillary Refill Less than 3 Seconds Skin: Left heel deep ulcer, oval in shape. Wound VAC applied. 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 Acute on chronic left heel MRSA diabetic ulcer/mild to moderate osteomyelitis of the posterior process of the calcaneus MRI of the left leg done on 03/06/21 shows above. Wound cultures on shows MRSA, Proteus mirabilis, Morganella morganii BKA recommended, plastic surgery consulted, recommended doing the surgery in a couple of weeks Podiatry and ID following; Continue on IV vancomycin and Ertapenem 2. MRSA bacteremia, continue on IV vancomycin, 2D echo and BUCK was unremarkable Blood cultures on shows MRSA 3. Moderate protein calorie malnutrition, conductor orchestra consulted 4. Diabetes mellitus type 2 with diabetic neuropathy, HbA1c is 7.3, blood sugars are better controlled today Continue home regimen Visit Charges Inpatient E&M: 09181 Subs Hosp L2
[2021-03-11] MEDS: Insulin Lispro 100 UNIT/ML INSULN.PEN SC (18:19)
[2021-03-11] MEDS: Insulin Lispro 100 UNIT/ML INSULN.PEN 13 UNIT SC (18:19)
[2021-03-11 21:41] LABS: Bedside Glucose 100 mg/dL (70-110)
[2021-03-11] MEDS: 0.9% Saline Lock 10 ML Syringe IV (21:46)
[2021-03-11 23:16] LABS: Bedside Glucose 160 mg/dL (70-110)
[2021-03-12] MEDS: oxyCODONE 5 MG Tablet PO (02:08)
[2021-03-12 03:33] VITALS: BP 103/52; PULSE 75; RESP 16; TEMP 36.2; O2SAT 96
[2021-03-12 07:25] LABS: Bedside Glucose 229 mg/dL (70-110)
[2021-03-12 07:47] VITALS: BP 100/63; PULSE 78; RESP 16; TEMP 36.7; O2SAT 98
--- NOTE | 2021-03-12 09:00 | CASEMGMT ---
SALMA MCCAULEY received PICC line information. RN GARRICK faxed and called [facility] with PICC line info, discharge instructions and summary. SALMA MCCAULEY also faxed and left message with [facility].
--- NOTE | 2021-03-12 09:06 | NURSING ---
wound photo: left heel
--- NOTE | 2021-03-12 09:07 | NURSING ---
wound photo: left heel
[2021-03-12] MEDS: Insulin Lispro 100 UNIT/ML INSULN.PEN SC (09:23)
[2021-03-12] MEDS: 0.9% Saline Lock 10 ML Syringe IV (10:32)
--- NOTE | 2021-03-15 15:11 | CASEMGMT ---
SALMA MCCAULEY Discharge Follow-up Phone Call: LACLiv: 16 Strata: 4 Call Date: 03/15/21 Discharge Date: 03/12/21 Time of Call: 1510 Duration: 5 min Admitting Diagnosis: Infected left heel wound SALMA MCCAULEY completed follow-up phone call after recent hospitalization. Patient states he is doing well. Patient states he was making all his follow-up appts. Patient states [facility] has been helping him with his IV ATBS. SALMA MCCAULEY inquired if his wound vac was changed today. Patient states he was at friend's house and his phone . SALMA MCCAULEY encouraged patient to call [facility] and ask if they are coming to change his wound vac. Patient voiced understanding. Patient had no further questions or concerns at this time. SALMA MCCAULEY called [facility] and they will be reaching out to patient with visit time.
== END 2021-03-12 11:16 | disposition home health service (06) | DRG 344 ==
LOC: ED 10:28 → MS3 16:41
PROVIDERS: Internal Medicine Infectious Disease; Admitting Provider Internal Medicine; Emergency Provider Emergency Medicine; Visit Provider Internal Medicine
DX: E11.69 Type 2 diabetes mellitus with other specified complication (principal); M86.672 Other chronic osteomyelitis, left ankle and foot; E11.621 Type 2 diabetes mellitus with foot ulcer; L97.524 Non-pressure chronic ulcer of other part of left foot with necrosis of bone; R78.81 Bacteremia; L03.116 Cellulitis of left lower limb; B95.62 Methicillin resistant Staphylococcus aureus infection as the cause of diseases classified elsewhere; B96.4 Proteus (mirabilis) (morganii) as the cause of diseases classified elsewhere; E11.42 Type 2 diabetes mellitus with diabetic polyneuropathy; E11.610 Type 2 diabetes mellitus with diabetic neuropathic arthropathy; E11.649 Type 2 diabetes mellitus with hypoglycemia without coma; Z20.822 Contact with and (suspected) exposure to COVID-19; M06.9 Rheumatoid arthritis, unspecified; J44.9 Chronic obstructive pulmonary disease, unspecified; E44.0 Moderate protein-calorie malnutrition; F32.9 Major depressive disorder, single episode, unspecified; Z68.26 Body mass index [BMI] 26.0-26.9, adult; Z79.4 Long term (current) use of insulin; Z91.19 Patient's noncompliance with other medical treatment and regimen; Z86.711 Personal history of pulmonary embolism; Z87.891 Personal history of nicotine dependence
CPT/HCPCS: 11042; 11045; 36415; 36569; 71045; 73630; 73718; 80048; 80053; 80202; 81001; 82962; 83036; 83605; 83735; 84100; 84134; 85025; 85610; 85652; 85730; 86140; 87015; 87040; 87070; 87075; 87077; 87101; 87116; 87176; 87186; 87205; 87206; 87426; 87640; 93306; 93312; 93320; 93325; 97110; 97162; 97166; 97530; 97535; 97802; 97803; 99251; 99285; J7030; J7040; J7050; Q9957; A4216; G0463; J3490

== ENCOUNTER 2021-03-24 14:30 | Outpatient (RCR) | payer MEDICAID, SELFPAY ==
[2021-02-24 08:19] VITALS: BMI 28.8
[2021-02-27 00:38] VITALS: BP 116/78; PULSE 92; RESP 18; TEMP 36.7
[2021-03-01 09:06] LABS: Bedside Glucose 128 mg/dL (70-110)
[2021-03-01 09:06] LABS: Bedside Glucose 115 mg/dL (70-110)
[2021-03-01 09:26] LABS: Bedside Glucose 139 mg/dL (70-110)
[2021-03-03 15:24] VITALS: BP 162/79; PULSE 108; RESP 18; TEMP 37.9; BMI 28.8
--- NOTE | 2021-03-03 16:25 | PCM.WC.PN ---
History of Present Illness Date of Service: 03/05/21 Chief Complaint: Diabetic, left heel ulcer with osteomyelitis History of Wound: This 60-year-old uncontrolled diabetic follows up today for chronic left heel wound. He was previously medically and surgically treated for osteomyelitis and completed a extended course of IV antibiotics. He is at home at this time. He denies lower extremity pain, fever, chill, nausea, vomiting. His case is complicated with uncontrolled diabetes, calcaneus gait limb position due to prior ruptured Achilles tendon, and noncompliance. He has been continuing with wound VAC treatment and also continues hyperbaric oxygen therapy. His foot has an odor today. He denies new activity or injuries. 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 Debridement was performed as noted. He appears to have signs of infection and has a low-grade fever as well. I recommended hospitalization given his history of osteomyelitis high risk and prior sepsis. He refuses to go for admission. To proceed forward with using a knee roller or modified scooter.? To continue with wheelchair at this time.? He was previously diagnosed with osteomyelitis with the following bone growth: Morganella morganii, Proteus, MRSA, coag negative strep, anaerobic cocci. He already completed a course of IV vancomycin and Zosyn with anticipated end date of 01-20-21. ? He also had a prior blood culture with lactobacillus which was considered likely a contamination.? His most recent labs from between to include the following: white blood cell count 10.7, ESR 73, C-reactive protein 54.6, creatinine 1.02, GFR 79.? He completed this course and will follow up with his infectious disease on an as-needed basis.? Due to his osteomyelitis status I discussed the treatment option of hyperbaric oxygen therapy. ? ?He refused admission. Cultures were obtained today including aerobic, anaerobic, acid-fast, fungal, MRSA PCR. He was placed on Bactrim. CBC, CMP, ESR, C-reactive protein, and updated left foot x-rays were also ordered. He is at high risk for leg amputation.? He will likely require long-term use of an ankle-foot orthotic due to his calcaneus style gait that is resulting from his ruptured Achilles tendon.? Repair of this Achilles or arthrodesis of the ankle but only be considered if he was able to demonstrate appropriate postoperative care and remarkable improvement in lifestyle and hemoglobin A1c status.? Consideration may also be given to percutaneous attempted Achilles reapproximation with a PARS type system.? I recommend continuing with any nutritional supplementation available clinical chcf.? His noninvasive vascular studies were reviewed with triphasic PT and DP pulses bilateral.? His right NADIA is 1.12 and left 1.16.? His toe brachial index is 1.12 on the right and 1.34 on the left.? There is no significant segmental pressure drop and therefore no arterial occlusive lesion is suspected.? I answered his questions.? To return to clinic in 1 week.? Note: [employer] speech recognition car shunter software was used to create portions of this document. Sound-alike and misspelled words, as well as other car shunter errors may be contained in the documentation. The medical decision making level is moderate. There is noted moderate risk of morbidity after considering this treatment plan and diagnostic data. Considerations were given to prescription management, decisions regarding surgical options, or social determinants of health. The problems addressed require a moderate decision making level which includes one or more chronic illnesses (w/ exacerbation, progression, or side effects), two or more stable chronic illnesses, one undiagnosed new problem w/ uncertain prognosis, one acute illness with systemic symptoms, or one acute complicated injury. Physical Exam Const alert and oriented x3 General Appearance: cooperative HEENT normocephalic Extremity Extremity Narrative: No calf tenderness Diminished pulses Muscle wasting noted Wound has maceration malodor, erythema, edema, exposed bone to posterior lateral aspect General Extremity: edema and no tenderness to palpation of joints or extremities; Negative for cyanosis Skin Skin Narrative: no purulence, no streaking, no odor, no infection General Skin Exam: Negative for erythema Neuro Neuro Narrative: lack of normal epicritic sensation via light touch is consistent with neuropathy status Psych cooperative and affect normal Debridement Note Debridement Note Post-Debridement Measurements and Additional Note: Pre Debridement measurement left heel 4.4 x 4.5 x 0.5 cm Post-Debridement Measurements/Treatment WC - Nurse 2 - General Ulcer CM Notes Start: 03/01/21 09:02 Freq: Status: Active Protocol: Activity Type Activity Date Activity User E-Sign Co-Sign Detail Recorded Client Recorded Date Recorded By Document 03/03/21 16:05 [id number] [id number] 03/03/21 16:18 SUSANNE 03/03/21 16:05 Wound Center Nurse 2 #1- L HEEL -Time 16:06 -Correct Patient Yes -Correct Side, Site, Position Yes -Correct Procedure Yes -Procedure Performed Yes -Type of Procedure Debridement -Clinical Debridement Subcutaneous -Tissue Removed Subcutaneous -Post Debridement (cm) - Length 4.5 -Post Debridement (cm) - Width 4.7 -Post Debridement (cm) - Depth 0.5 -Total Square (Post) (cm) 21.15 -Area of Debridement (cm) - Length 4.5 -Area of Debridement (cm) - Width 4.7 -Total Square (Area) (cm) 21.15 -Tunneling No -Undermining/Tunneling No -Circular Undermining No -Wound/Ulcer Outcome Not Healed -Ulcer Cleansing Rinsed/ Irrigated with Saline -Foul Odor after Cleansing No -Bioengineered Tissue No -Bleeding Controlled with Pressure -Offloading Yes -Type of Offloading Surgical Shoe -Treatment Response Procedure Tolerated Well -Debridement - Subq, 1st 20sq cm Yes -Debridement, SubQ, ea addt'l 20sq cm 1 or part thereof Pain Scale: 0-10 Numeric Is Patient Pain Free? Yes BOUCHRA - Nurse 3 - General Ulcer D/C NN Start: 03/01/21 09:02 Freq: Status: Active Protocol: Activity Type Activity Date Activity User E-Sign Co-Sign Detail Recorded Client Recorded Date Recorded By Document 03/03/21 16:18 JF [id number] 03/03/21 16:19 SUSANNE 03/03/21 16:18 Wound Care Nurse 3 #1- L HEEL -Ulcer Cleansing Rinsed/ Irrigated with Saline -Foul Odor after Cleansing No -Other Dressing dakin -Primary Dressing Covered/Secured with Dry Gauze & Roll Gauze, Secured with Tape Left -Tubular Bandage Double Layer -Size of Tubigrip Used Size E -Size E ($) 2 Pain Scale: 0-10 Numeric Is Patient Pain Free? Yes WC - Visit Discharge Discharge Condition Stable Ambulatory Status Ambulatory Transportation Private Auto Medication Reconcilliation completed & Yes provided to patient/care provider Clinical Summary of Care Provided Yes Wound debrided: plantar left heel Wound Grade/Stage: 3 Type of Debridement: Excisional debridement Anesthesia Used: 4% Lidocaine Solution Depth: in the subcutaneous layer Percentage of wound debrided: 100 Instrument Used: #15 blade Tissue Removed: fibrous, devitalized subcutaneous, biofilm, slough Severity: Fat Layer Exposed Amount of bleeding with debridement: Mild Bleeding Controlled with: Pressure Patient tolerated procedure: Patient tolerated procedure well
--- NOTE | 2021-03-03 17:06 | RAD_ITS ---
STUDY: X-RAY - LEFT FOOT CLINICAL: Male, 60 years old. OSTEOMYELITIS; FOOT ULCER TECHNIQUE: 4 view(s) of the foot. COMPARISON: None. FINDINGS: Normal talus, calcaneus, and tarsal bones. Normal visualized subtalar, talonavicular, calcaneocuboid, tarsal and tarsometatarsal articulations. Normal metatarsi. Normal metatarsophalangeal joint of the great toe. Normal tibial and fibular sesamoid bones. Normal interphalangeal joint of the great toe. Normal phalanges of the great toe. Normal second through fifth metatarsophalangeal joints. Normal interphalangeal joints and phalanges of the lesser toes. There is focal ulceration of the plantar surface of the level of the calcaneus.. No cortical destruction to suggest acute osteomyelitis this time RAD/Foot min 3 Views IMPRESSION: Ulceration of the plantar surface of the hindfoot without definitive evidence for acute osteomyelitis. Three-phase bone scan or MRI would be useful for further evaluation if indicated. Electronically Signed: Juan Carlos Lawosn MD at 16:51 EDT , Service support ,
[2021-03-03 17:22] LABS: Absolute Lymphocyte Count 1.47 X10^3/uL (0.83-4.51); Absolute Neutrophil Count 9.8 X10^3/uL (2.0-7.7); Basophil# 0.05 X10^3/uL; Basophil% 0.4 % (0-1); Eosinophil# 0.09 X10^3/uL; Eosinophils% 0.7 % (0-5); Hematocrit 43.2 % (40-54); Lymphocyte # 1.47 X10^3/ul (0.83-4.51); Lymphocyte % 11.7 % (19-41); Mean Corp Hgb Conc 32.4 g/dL (32-36); Mean Corpuscular Hgb 28.9 pg (27.0-32.0); Mean Corpuscular Volume 89.1 fL (80-94); Mean Platelet Vol. 9.3 fl (6.2-12.0); Monocyte# 1.05 X10^3/uL; Monocyte% 8.4 % (0-10); NRBC Flagged by Analyzer 0 % (0-5); Neutrophil # 9.81 X10^3/uL (2.7-7.7); Neutrophil % 78.4 % (47-70); Platelet Count 374 K/mm3 (150-450); RBC Distribution Width CV 13.6 % (11.6-14.6); RBC Distribution Width SD 44.3 fl (35.1-43.9); Red Blood Count 4.85 M/mm3 (4.6-6.2); White Blood Count 12.5 K/mm3 (4.4-11.0)
[2021-03-03 17:59] LABS: Erythrocyte Sedimentation Rate 32 mm/hr (0-20)
[2021-03-03 18:17] LABS: ALB/GLOB Ratio 0.6 RATIO (0.9-2.4); AST(SGOT) 17 U/L (15-37); Alanine Aminotransfer ALT/SGPT 19 U/L (16-61); Albumin, Serum 3.1 g/dL (3.2-5.0); Alkaline Phosphatase 127 U/L (45-117); Anion Gap 5 (5-15); BUN 15 mg/dL (7-18); BUN/Creat Ratio 16.2 RATIO (10-20); Calcium,Total 8.9 mg/dL (8.5-10.1); Chloride 100 mmol/L (98-107); Creatinine, Serum 0.93 mg/dL (0.70-1.30); EST Glomerular Filtration Rate 88 mL/min (>60); Est Glom Filt Rate - Afr Amer 106 mL/min (>60); Estimated Creatinine Clearance 86.13 ml/min; Globulin 4.9 g/dL (2.2-4.2); Glucose 157 mg/dL (74-106); Potassium 3.4 mmol/L (3.5-5.1); Sodium Level 136 mmol/L (136-145)
[2021-03-03 20:55] LABS: M R Staph aureus DNA By PCR POSITIVE (Negative); Probe Check PASS; Staph aureus DNA By PCR POSITIVE (Negative)
--- NOTE | 2021-03-05 07:51 | WC ---
Spoke to Dr Calloway regarding having patient notified to report to the ER for infection of the foot. Patient has cancelled HBO for the last 2 days. Called patient to report this to him and he was voicing Frustration that he doesn't want to go because he does not want to be admitted. He stated he would like to wait until his birthday. I explained that he had a fever and odor to ulcer and his labs were reviewed by Dr Calloway and he has an elevated WBC. Patient states he will go in today but not right away so he can get his affairs in order. Told patient to report to the ER and have Dr Calloway paged. He verbalized understanding.
--- NOTE | 2021-03-05 16:42 | PN.PCM_ITS ---
History of Present Illness Date of Service: 02/24/21 Chief Complaint: Diabetic, left heel ulcer with osteomyelitis History of Wound: This note is a reentry from date of service 02-24-21. The note was signed on 02/24 and all information was erased due to computer software malfunction. This 60-year-old uncontrolled diabetic follows up today for chronic left heel wound. He was previously medically and surgically treated for osteomyelitis and completed a extended course of IV antibiotics. He is at home at this time. He denies lower extremity pain, fever, chill, nausea, vomiting. His case is complicated with uncontrolled diabetes, calcaneus gait limb position due to prior ruptured Achilles tendon, and noncompliance. He had prior wound VAC treatment and also hyperbaric oxygen therapy. He denies fever, chills, nausea, vomiting, redness or odor. He has changed his dressings with dakin wet to dry and is ready to proceed with epifix application if appropriate. Progress of Wound: stable Objective Data Objective Data Vital Signs: Vital Signs- reviewed, afebrile Lab / Micro Data Lab results narrative: disregard these labs; not part of note from 02-24-2021 Result Diagrams: 03/03/21 16:47 03/03/21 16:47 Labs: Micro: Radiography Diagnostic Testing: Assessment & Plan Assessment/Plan (1) 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: (2) Osteomyelitis: QUALIFIERS: Osteomyelitis type: unspecified type Osteomyelitis location: foot Laterality: left Qualified Code(s): M86.9 - Osteomyelitis, unspecified (3) Noncompliance with medication regimen: (4) Type 2 diabetes mellitus with diabetic polyneuropathy: QUALIFIERS: Diabetes mellitus tank terminal gauger insulin use: without tank terminal gauger use Qualified Code(s): E11.42 - Type 2 diabetes mellitus with diabetic polyneuropathy (5) Calcaneal gait: PLAN: Wound debrided:?plantar heel Laterality:?Left Wound Grade/Stage:?grade 3 Type of Debridement:?Excisional debridement Anesthesia Used:?5% Lidocaine Gel Depth:?in the subcutaneous layer Percentage of wound debrided:?100 Instrument Used:?#15 blade Tissue Removed:?fibrous, devitalized subcutaneous, biofilm, slough, maceration Severity:?Fat Layer Exposed Amount of bleeding with debridement:?Mild Bleeding Controlled with:?Pressure Patient tolerated procedure well I reviewed and discussed his case on 02/24/2021.? Excisional debridement was performed as noted in the clinical panel.? Clinically his infection and recent maceration status has resolved and he has continued wound peripheral epithelialization.? He did well with Dakin wet-to-dry dressings last week and I recommend application of advanced wound healing product, epi fix today. Verbal consent was obtained and this was applied according to standard protocol. This was applied with a wound veil and Steri-Strips. A secondary dressing was applied and he was advised to keep this clean, dry, and intact. It is okay to change the secondary dressing for moisture management. The wound VAC was put on hold this week. He understands the benefits, indications, application process and anticipated management. To monitor for signs of infection or odor. He tolerated this procedure well. To proceed forward with using a knee roller or modified scooter.? To continue with wheelchair at this time.? He was previously diagnosed with osteomyelitis. This was treated medically and surgically. He continues with hyperbaric oxygen therapy. It is noted she has missed several sessions due to hyperglycemia. Compliance was reviewed. This is medically necessary for limb salvage. He is at risk for limb loss and treatment failure due to intermittent treatment lack of participation. I recommend continuing with any nutritional supplementation available clinical group home.? His noninvasive vascular studies were reviewed with triphasic PT and DP pulses bilateral.? His right NADIA is 1.12 and left 1.16.? His toe brachial index is 1.12 on the right and 1.34 on the left.? There is no significant segmental pressure drop and therefore no arterial occlusive lesion is suspected.? I answered his questions.? To return to clinic in 1 week and to return for scheduled hyperbaric oxygen therapy sessions.? Note: [employer] speech recognition energy conservation specialist software was used to create portions of this document. Sound-alike and misspelled words, as well as other energy conservation specialist errors may be contained in the documentation.? Physical Exam Const alert and oriented x3 General Appearance: cooperative HEENT normocephalic Extremity Extremity Narrative: No calf tenderness Diminished pulses Muscle wasting noted General Extremity: edema and no tenderness to palpation of joints or extremities; Negative for cyanosis Skin Skin Narrative: no purulence, no streaking, no odor, no infection. granular base with mild fibrous. no visualized bone, necrosis. reduced peripheral maceration. no bogginess or fluctuance noted. General Skin Exam: Negative for erythema Neuro Neuro Narrative: lack of normal epicritic sensation via light touch is consistent with neuropathy status Psych cooperative and affect normal Debridement Note Debridement Note Post-Debridement Measurements and Additional Note: Pre-Debridement Measurement left heel: 1.7 x 3.1 x 0.3 cm Post-Debridement Measurements left heel: 1.8 x 3.2 x 0.4 cm
[2021-03-17 13:22] VITALS: BP 160/76; PULSE 107; RESP 22; TEMP 37.2; BMI 28.8
--- NOTE | 2021-03-17 22:21 | PCM.WC.PN ---
History of Present Illness Date of Service: 03/20/21 Chief Complaint: Diabetic, left heel ulcer with osteomyelitis History of Wound: This 60-year-old uncontrolled diabetic follows up today for chronic left heel wound. He was previously medically and surgically treated for osteomyelitis and completed a extended course of IV antibiotics. He is at home at this time. He denies lower extremity pain, fever, chill, nausea, vomiting. He has been changing his dressing as advised. He was recently discharged from [facility] where he was treated for deep space infection and sepsis again. He is ready to proceed forward to below-knee amputation and is still in the process of getting this procedure scheduled. He presents full weightbearing in a surgical shoe on the heel which is not recommended. Progress of Wound: stable Objective Data Objective Data Vital Signs: Vital Signs Temp Pulse Resp BP 99 F 107 H 22 H 160/76 H 03/17/21 13:22 03/17/21 13:22 03/17/21 13:22 03/17/21 13:22 Oxygen Delivery Method Room Air Weight: 80.286 kg Body Mass Index (BMI) 28.8 Lab / Micro Data Result Diagrams: 03/03/21 16:47 03/03/21 16:47 Micro: Microbiology 03/03/21 Unknown Wound Abcess - Heel, Left Gram Stain - Final 03/03/21 Unknown Wound Abcess - Heel, Left Wound Culture - Final Meth. resistant Staph. aureus Proteus mirabilis Morganella morganii sp morgani 03/03/21 Unknown Wound Abcess - Heel, Left Anaerobic Culture - Final Bacteroides fragilis 03/03/21 Unknown Wound - Heel, Left Acid Fast Bacilli Smear - Final Physical Exam Const alert and oriented x3 General Appearance: cooperative HEENT normocephalic Extremity Extremity Narrative: No calf tenderness Diminished pulses Muscle wasting noted General Extremity: edema and no tenderness to palpation of joints or extremities; Negative for cyanosis Skin Skin Narrative: no purulence, no streaking, no odor, no infection. granular base with devitalized, compromised, fibrous. visualized bone noted. No necrosis. reduced peripheral maceration. no bogginess or fluctuance noted. General Skin Exam: Negative for erythema Neuro Neuro Narrative: lack of normal epicritic sensation via light touch is consistent with neuropathy status Psych cooperative and affect normal Debridement Note Debridement Note Post-Debridement Measurements and Additional Note: Post-Debridement Measurements/Treatment WC - Nurse 1 - General Ulcer Assessment Start: 03/01/21 09:02 Freq: Status: Active Protocol: SAVAGE Activity Type Activity Date Activity User E-Sign Co-Sign Detail Recorded Client Recorded Date Recorded By Document 03/03/21 15:24 BMF [id number] 03/03/21 15:34 BMF Document 03/17/21 13:22 DL [id number] 03/17/21 13:33 DL 03/03/21 03/17/21 15:24 13:22 WC - Today's Visit Information Type of service Follow-up Visit Follow-up Visit (Physician/[employer] (Physician/[employer] ) ) Arrival Mode Wheelchair Ambulatory, Walker Transfer Assistance Other None Transfer Assist (Other) stand by Patient Identification Verified (Name & Yes Yes ) Patient Requires Transmission-Based No Precautions Finger Stick Blood Sugar(mg/dl) (if 176 indicated): Blood Sugar Stated by Patient Height and Weight Body Mass Index (BMI) 28.8 28.8 BMI Classification Overweight Overweight Vital Signs Temperature (97.8 F-99.1 F) 100.2 F H 99 F Temperature Source Temporal Temporal Pulse Rate (60-100) 108 H 107 H Pulse Location Monitor Monitor Respiratory Rate (12-18) 18 22 H Respiratory rate source Observation Observation Oxygen Delivery Method Room Air Blood Pressure (90/60-120/80) 162/79 H 160/76 H Blood Pressure Mean (mm Hg) 106 104 Source Monitor Monitor Position Sitting Blood Pressure Location Left Arm History Since Last Visit- (Skip if this is Patient's initial visit) Have you changed medications since your No No last visit? Any new allergies or adverse reactions No No Had a fall/change in ADL's that may No No increase risk of falls Signs or symptoms of abuse and/or No neglect since last visit Have you been in the hospital since your No No last visit? Has dressing in place as prescribed Yes Yes Has compression in place as prescribed N/A No Has offloadiing in place as prescribed Yes No Experienced any changes in pain level or No No management Left Footwear Surgical Shoe Surgical Shoe with pressure with pressure relief insole relief insole Right Footwear Regular Shoe Pain Scale: 0-10 Numeric Is Patient Pain Free? Yes Yes BOUCHRA - Nurse 1 - General Ulcer Measurement Start: 03/01/21 09:02 Freq: Status: Active Protocol: Activity Type Activity Date Activity User E-Sign Co-Sign Detail Recorded Client Recorded Date Recorded By Document 03/03/21 15:24 BMF [id number] 03/03/21 15:34 BMF Document 03/17/21 13:22 DL [id number] 03/17/21 13:33 DL 03/03/21 03/17/21 15:24 13:22 Wound Center Nurse 1 #1- L HEEL -Combined with other wound No -Current Size (cm) - Length 2.2 3.6 -Current Size (cm) - Width 4.2 2.6 -Current Size (cm) - Depth 0.4 0.6 -Total Square Cm 9.24 9.36 -Photo Taken No No -Epithelialization None Present -Tunneling No -Undermining/Tunneling Starts (O'clock 12 ) -Undermining/Tunneling Ends (O'clock) 3 -Maximum Distance (cm) 0.4 -Undermining/Tunneling Starts #2 (O' 4 clock) -Undermining/Tunneling Ends #2 (O' 8 clock) -Maximum Distance #2 (cm) 1 -Circular Undermining No -Exudate Amt Large Medium -Exudate Type Yellow/Green Serosanguineous -Wound Margin Distinct, Distinct, Outline Outline Attached Attached -Granulation Amt Large (67-100%) Medium (34-66%) -Granulation Quality Red Red -Slough/Fibrin Yes -Necrosis Amt Small (1-33%) Medium (34-66%) -Necrotic Tissue Type Adherent Slough Adherent Slough -Structure Exposed Bone N/A -Texture (Teodora-wound Skin Appearance) Assessed, Scarring Scarring -Moisture (Teodora-wound Skin Appearance) Assessed, Maceration Maceration -Color (Teodora-wound Skin Appearance) Assessed, No Abnormality Erythema,Rubor -Temperature (Teodora-wound Skin No Abnormality No Abnormality Appearance) (Pt Warm) (Pt Warm) -Tenderness on Palpation (Teodora-wound Yes No Skin Appearance) -Ulcer Cleansing soapy water Wound Cleanser -Foul Odor after Cleansing No No -Anesthetic Used 4% Lidocaine 4% Lidocaine Solution Solution Lower Limb Edema Present Yes Left Calf (cm) 38.7 41 Left Ankle (cm) 26.6 27 WC - Nurse 2 - General Ulcer CM Notes Start: 03/01/21 09:02 Freq: Status: Active Protocol: Activity Type Activity Date Activity User E-Sign Co-Sign Detail Recorded Client Recorded Date Recorded By Document 03/03/21 16:05 JF [id number] 03/03/21 16:18 Document 03/17/21 13:40 [id number] 03/17/21 13:43 03/03/21 03/17/21 16:05 13:40 Wound Center Nurse 2 #1- L HEEL -Time 16:06 13:41 -Correct Patient Yes Yes -Correct Side, Site, Position Yes Yes -Correct Procedure Yes Yes -Procedure Performed Yes Yes -Type of Procedure Debridement Debridement -Clinical Debridement Subcutaneous Subcutaneous -Tissue Removed Subcutaneous Subcutaneous -Post Debridement (cm) - Length 4.5 3.6 -Post Debridement (cm) - Width 4.7 2.7 -Post Debridement (cm) - Depth 0.5 0.6 -Total Square (Post) (cm) 21.15 9.72 -Area of Debridement (cm) - Length 4.5 3.6 -Area of Debridement (cm) - Width 4.7 2.7 -Total Square (Area) (cm) 21.15 9.72 -Tunneling No No -Undermining/Tunneling No No -Circular Undermining No No -Wound/Ulcer Outcome Not Healed Not Healed -Ulcer Cleansing Rinsed/ Rinsed/ Irrigated with Irrigated with Saline Saline -Foul Odor after Cleansing No No -Bioengineered Tissue No No -Bleeding Controlled with Pressure NA,Pressure -Offloading Yes No -Type of Offloading Surgical Shoe -Treatment Response Procedure Procedure Tolerated Well Tolerated Well -Debridement - Subq, 1st 20sq cm Yes Yes -Debridement, SubQ, ea addt'l 20sq cm 1 or part thereof Pain Scale: 0-10 Numeric Is Patient Pain Free? Yes Yes - Nurse 3 - General Ulcer D/C NN Start: 03/01/21 09:02 Freq: Status: Active Protocol: Activity Type Activity Date Activity User E-Sign Co-Sign Detail Recorded Client Recorded Date Recorded By Document 03/03/21 16:18 JF [id number] 03/03/21 16:19 JF Document 03/17/21 13:59 DL [id number] 03/17/21 14:00 DL 03/03/21 03/17/21 16:18 13:59 Wound Care Nurse 3 #1- L HEEL -Ulcer Cleansing Rinsed/ Rinsed/ Irrigated with Irrigated with Saline Saline -Foul Odor after Cleansing No No -Other Dressing dakin dakins -Primary Dressing Covered/Secured with Dry Gauze & Dry Gauze & Roll Gauze, Roll Gauze, Secured with Secured with Tape Tape Left -Tubular Bandage Double Layer -Size of Tubigrip Used Size E -Size E ($) 2 Treatment Response Procedure Tolerated Well Pain Scale: 0-10 Numeric Is Patient Pain Free? Yes Yes WC - Visit Discharge Discharge Condition Stable Stable Ambulatory Status Ambulatory Ambulatory, Walker Transportation Private Auto Private Auto Medication Reconcilliation completed & Yes provided to patient/care provider Clinical Summary of Care Provided Yes Notes: Vac D/Cd, Surgical C/S with Dr. Gallego. Wound debrided: plantar left heel Wound Grade/Stage: 3 Type of Debridement: Excisional debridement Anesthesia Used: 4% Lidocaine Solution Depth: in the subcutaneous layer Percentage of wound debrided: 100 Instrument Used: #15 blade Tissue Removed: fibrous, devitalized subcutaneous, biofilm, slough Severity: Fat Layer Exposed Amount of bleeding with debridement: Mild Bleeding Controlled with: Pressure Patient tolerated procedure: Patient tolerated procedure well Assessment/Plan Assessment/Plan (1) 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: CODE(S): Code(s): L97.523 - Non-pressure 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 (2) Osteomyelitis: CODE(S): Code(s): M86.9 - Osteomyelitis, unspecified QUALIFIERS: Osteomyelitis type: unspecified type Osteomyelitis location: foot Laterality: left Qualified Code(s): M86.9 - Osteomyelitis, unspecified PLAN: I reviewed and discussed his case.? Debridement was performed as noted. He was recently discharged from the hospital for infected left heel ulcer and sepsis. He is on antibiotics in the management of infectious disease and in the process of getting scheduled for a below-knee amputation. To proceed forward with using a knee roller or modified scooter.? To continue with wheelchair at this time.? He was previously diagnosed with osteomyelitis with the following bone growth. He has stabilized since he has been discharged from the hospital. He is tentatively going to plan his below-knee amputation with Dr. Gallego within the next month. The date and time are pending. He will continue with hyperbaric oxygen therapy and wound care until his surgical date to keep him as stable as possible to increase the success of his next stage surgery. I recommend continuing with any nutritional supplementation available clinical skilled nursing.? His noninvasive vascular studies were reviewed with triphasic PT and DP pulses bilateral.? His right NADIA is 1.12 and left 1.16.? His toe brachial index is 1.12 on the right and 1.34 on the left.? There is no significant segmental pressure drop and therefore no arterial occlusive lesion is suspected.? I answered his questions.? To return to clinic in 1 week.? Note: [employer] speech recognition power originator software was used to create portions of this document. Sound-alike and misspelled words, as well as other power originator errors may be contained in the documentation. (3) Noncompliance with medication regimen: CODE(S): Code(s): Z91.14 - Patient's other noncompliance with medication regimen (4) Type 2 diabetes mellitus with diabetic polyneuropathy: CODE(S): Code(s): E11.42 - Type 2 diabetes mellitus with diabetic polyneuropathy QUALIFIERS: Diabetes mellitus long chain quiller tender insulin use: without long chain quiller tender use Qualified Code(s): E11.42 - Type 2 diabetes mellitus with diabetic polyneuropathy (5) Calcaneal gait: CODE(S): Code(s): R26.89 - Other abnormalities of gait and mobility
[2021-03-24 14:45] VITALS: BP 164/74; PULSE 113; RESP 18; TEMP 37.1; BMI 28.8
--- NOTE | 2021-03-24 16:00 | PCM.PN.ID ---
Physical Exam Narrative Feeling better, amputation planned, no fever, no n/v/d, no issues with picc Const alert General Appearance: cooperative Resp normal air movement and clear to auscultation bilaterally Cardio regular rate and regular rhythm GI normal to inspection, nondistended, normoactive bowel sounds Skin Skin Narrative: foot ulcer ID ID: Route of nutrition/ use of supplements: [] Nutritional Intake: [] IV Site: [] Wilkinson Catheter: [] Assessment & Plan Assessment/Plan (1) Bacteremia: (2) Osteomyelitis of ankle and foot: PLAN: Recent admit with MRSA bacteremia due to recurrent L foot osteo - wound cx with MRSA, proteus, morganella.? Bcx neg since 03/08.? TTE showed no veg. Concern for endocarditis with splinter hemorrhages on L middle finger.? Pt interested in amputation, seen by Dr. Gallego, scheduled in 2-3 weeks.? Currently on 6 weeks of abx, vanc to stop 04/19, ertapenem to stop 04/14/21.? Weekly bmp,? cbc, LFT, esr, and vanc trough.? Reviewed labs. Return to clinic at end of course. Will follow.
--- NOTE | 2021-03-24 16:09 | PCM.WC.PN ---
History of Present Illness Date of Service: 03/24/21 Chief Complaint: Diabetic, left heel ulcer with osteomyelitis History of Wound: This 60-year-old uncontrolled diabetic follows up today for chronic left heel wound. He was previously medically and surgically treated for osteomyelitis with several rounds of reoccurrence. He is ready to proceed forward to below-knee amputation and this is scheduled for next month with Dr. Gallego. He presents full weightbearing in a surgical shoe on the heel which is not recommended. Progress of Wound: stable Objective Data Objective Data Vital Signs: Vital Signs Temp Pulse Resp BP 98.8 F 113 H 18 164/74 H 03/24/21 14:45 03/24/21 14:45 03/24/21 14:45 03/24/21 14:45 Oxygen Delivery Method Room Air Weight: 80.286 kg Body Mass Index (BMI) 28.8 Lab / Micro Data Result Diagrams: 03/03/21 16:47 03/03/21 16:47 Micro: Microbiology 03/03/21 Unknown Wound Abcess - Heel, Left Gram Stain - Final 03/03/21 Unknown Wound Abcess - Heel, Left Wound Culture - Final Meth. resistant Staph. aureus Proteus mirabilis Morganella morganii sp morgani 03/03/21 Unknown Wound Abcess - Heel, Left Anaerobic Culture - Final Bacteroides fragilis 03/03/21 Unknown Wound - Heel, Left Acid Fast Bacilli Smear - Final Physical Exam Const alert and oriented x3 General Appearance: cooperative HEENT normocephalic Extremity Extremity Narrative: No calf tenderness Diminished pulses Muscle wasting noted General Extremity: edema and no tenderness to palpation of joints or extremities; Negative for cyanosis Skin Skin Narrative: no purulence, no streaking, no odor. granular base with devitalized, compromised, fibrous. visualized bone noted. No necrosis. reduced peripheral maceration. no bogginess or fluctuance noted. General Skin Exam: Negative for erythema Neuro Neuro Narrative: lack of normal epicritic sensation via light touch is consistent with neuropathy status Psych cooperative and affect normal Debridement Note Debridement Note Post-Debridement Measurements and Additional Note: Post-Debridement Measurements/Treatment WC - Nurse 1 - General Ulcer Assessment Start: 03/01/21 09:02 Freq: Status: Active Protocol: BOUCHRA.LOWEXT Activity Type Activity Date Activity User E-Sign Co-Sign Detail Recorded Client Recorded Date Recorded By Document 03/03/21 15:24 BMF [id number] 03/03/21 15:34 BMF Document 03/17/21 13:22 DL [id number] 03/17/21 13:33 DL Document 03/24/21 14:45 BMF [id number] 03/24/21 14:50 BMF 03/03/21 03/17/21 03/24/21 15:24 13:22 14:45 WC - Today's Visit Information Type of service Follow-up Visit Follow-up Visit Follow-up Visit (Physician/CLINICAL PHARMACY SPECIALIST (Physician/CLINICAL PHARMACY SPECIALIST (Physician/CLINICAL PHARMACY SPECIALIST ) ) ) Arrival Mode Wheelchair Ambulatory, Ambulatory, Walker Walker Transfer Assistance Other None None Transfer Assist (Other) stand by Patient Identification Verified (Name & Yes Yes Yes ) Patient Requires Transmission-Based No No Precautions Finger Stick Blood Sugar(mg/dl) (if 176 189 indicated): Blood Sugar Stated by Stated by Patient Patient Height and Weight Body Mass Index (BMI) 28.8 28.8 28.8 BMI Classification Overweight Overweight Overweight Vital Signs Temperature (97.8 F-99.1 F) 100.2 F H 99 F 98.8 F Temperature Source Temporal Temporal Temporal Pulse Rate (60-100) 108 H 107 H 113 H Pulse Location Monitor Monitor Monitor Respiratory Rate (12-18) 18 22 H 18 Respiratory rate source Observation Observation Observation Oxygen Delivery Method Room Air Room Air Blood Pressure (90/60-120/80) 162/79 H 160/76 H 164/74 H Blood Pressure Mean (mm Hg) 106 104 104 Source Monitor Monitor Monitor Position Sitting Sitting Blood Pressure Location Left Arm Right Forearm History Since Last Visit- (Skip if this is Patient's initial visit) Have you changed medications since your No No No last visit? Any new allergies or adverse reactions No No No Had a fall/change in ADL's that may No No No increase risk of falls Signs or symptoms of abuse and/or No No neglect since last visit Have you been in the hospital since your No No No last visit? Has dressing in place as prescribed Yes Yes Yes Has compression in place as prescribed N/A No Yes Has offloadiing in place as prescribed Yes No Yes Experienced any changes in pain level or No No No management Left Footwear Surgical Shoe Surgical Shoe Surgical Shoe with pressure with pressure with pressure relief insole relief insole relief insole Right Footwear Regular Shoe Regular Shoe Pain Scale: 0-10 Numeric Is Patient Pain Free? Yes Yes Yes WC - Nurse 1 - General Ulcer Measurement Start: 03/01/21 09:02 Freq: Status: Active Protocol: Activity Type Activity Date Activity User E-Sign Co-Sign Detail Recorded Client Recorded Date Recorded By Document 03/03/21 15:24 BM [id number] 03/03/21 15:34 BMF Document 03/17/21 13:22 DL [id number] 03/17/21 13:33 DL Document 03/24/21 14:45 [place] [id number] 03/24/21 14:50 [facility] 03/03/21 03/17/21 03/24/21 15:24 13:22 14:45 Wound Center Nurse 1 #1- L HEEL -Combined with other wound No No -Current Size (cm) - Length 2.2 3.6 4 -Current Size (cm) - Width 4.2 2.6 4.8 -Current Size (cm) - Depth 0.4 0.6 0.5 -Total Square Cm 9.24 9.36 19.2 -Photo Taken No No -Epithelialization None Present None Present -Tunneling No No -Undermining/Tunneling Yes -Undermining/Tunneling Starts (O'clock 12 6 ) -Undermining/Tunneling Ends (O'clock) 3 1 -Maximum Distance (cm) 0.4 1.3 -Undermining/Tunneling Starts #2 (O' 4 clock) -Undermining/Tunneling Ends #2 (O' 8 clock) -Maximum Distance #2 (cm) 1 -Circular Undermining No -Exudate Amt Large Medium Large -Exudate Type Yellow/Green Serosanguineous Serosanguineous -Wound Margin Distinct, Distinct, Distinct, Outline Outline Outline Attached Attached Attached -Granulation Amt Large (67-100%) Medium (34-66%) Large (67-100%) -Granulation Quality Red Red Pale,Red -Slough/Fibrin Yes Yes -Necrosis Amt Small (1-33%) Medium (34-66%) Small (1-33%) -Necrotic Tissue Type Adherent Slough Adherent Slough Adherent Slough -Structure Exposed Bone N/A -Texture (Teodora-wound Skin Appearance) Assessed, Scarring Assessed,Callus Scarring ,Localized Edema -Moisture (Teodora-wound Skin Appearance) Assessed, Maceration Assessed, Maceration Maceration -Color (Teodora-wound Skin Appearance) Assessed, No Abnormality Assessed, Erythema,Rubor Erythema,Palor -Temperature (Teodora-wound Skin No Abnormality No Abnormality No Abnormality Appearance) (Pt Warm) (Pt Warm) (Pt Warm) -Tenderness on Palpation (Teodora-wound Yes No Yes Skin Appearance) -Ulcer Cleansing soapy water Wound Cleanser soapy water -Foul Odor after Cleansing No No No -Anesthetic Used 4% Lidocaine 4% Lidocaine 5% Lidocaine Solution Solution Gel Lower Limb Edema Present Yes Yes Left Calf (cm) 38.7 41 37.5 Left Ankle (cm) 26.6 27 28.2 WC - Nurse 2 - General Ulcer CM Notes Start: 03/01/21 09:02 Freq: Status: Active Protocol: Activity Type Activity Date Activity User E-Sign Co-Sign Detail Recorded Client Recorded Date Recorded By Document 03/03/21 16:05 JF [id number] 03/03/21 16:18 JF Document 03/17/21 13:40 JF [id number] 03/17/21 13:43 JF Document 03/24/21 15:59 PL [id number] 03/24/21 16:00 PL 03/03/21 03/17/21 03/24/21 16:05 13:40 15:59 Wound Center Nurse 2 #1- L HEEL -Time 16:06 13:41 15:04 -Correct Patient Yes Yes Yes -Correct Side, Site, Position Yes Yes Yes -Correct Procedure Yes Yes Yes -Procedure Performed Yes Yes Yes -Type of Procedure Debridement Debridement Debridement -Clinical Debridement Subcutaneous Subcutaneous Subcutaneous -Tissue Removed Subcutaneous Subcutaneous Subcutaneous -Post Debridement (cm) - Length 4.5 3.6 4.1 -Post Debridement (cm) - Width 4.7 2.7 5.1 -Post Debridement (cm) - Depth 0.5 0.6 0.5 -Total Square (Post) (cm) 21.15 9.72 19.20 -Area of Debridement (cm) - Length 4.5 3.6 4.0 -Area of Debridement (cm) - Width 4.7 2.7 4.8 -Total Square (Area) (cm) 21.15 9.72 19.20 -Tunneling No No No -Undermining/Tunneling No No No -Circular Undermining No No No -Wound/Ulcer Outcome Not Healed Not Healed Not Healed -Ulcer Cleansing Rinsed/ Rinsed/ Rinsed/ Irrigated with Irrigated with Irrigated with Saline Saline Saline -Foul Odor after Cleansing No No No -Bioengineered Tissue No No No -Bleeding Controlled with Pressure NA,Pressure Pressure -Offloading Yes No -Type of Offloading Surgical Shoe -Treatment Response Procedure Procedure Procedure Tolerated Well Tolerated Well Tolerated Well -Debridement - Subq, 1st 20sq cm Yes Yes Yes -Debridement, SubQ, ea addt'l 20sq cm 1 or part thereof Pain Scale: 0-10 Numeric Is Patient Pain Free? Yes Yes Yes - Nurse 3 - General Ulcer D/C NN Start: 03/01/21 09:02 Freq: Status: Active Protocol: Activity Type Activity Date Activity User E-Sign Co-Sign Detail Recorded Client Recorded Date Recorded By Document 03/03/21 16:18 JF [id number] 03/03/21 16:19 JF Document 03/17/21 13:59 DL [id number] 03/17/21 14:00 DL Document 03/24/21 15:27 RB [id number] 03/24/21 15:28 RB 03/03/21 03/17/21 03/24/21 16:18 13:59 15:27 Wound Care Nurse 3 #1- L HEEL -Ulcer Cleansing Rinsed/ Rinsed/ Irrigated with Irrigated with Saline Saline -Foul Odor after Cleansing No No -Other Dressing dakin dakins dakins solution moistened gauze -Primary Dressing Covered/Secured with Dry Gauze & Dry Gauze & Dry Gauze,Dry Roll Gauze, Roll Gauze, Gauze & Roll Secured with Secured with Gauze,Secured Tape Tape with Tape -Other Covering abd Left -Tubular Bandage Double Layer -Size of Tubigrip Used Size E -Size E ($) 2 -Other félix Treatment Response Procedure Procedure Tolerated Well Tolerated Well Pain Scale: 0-10 Numeric Is Patient Pain Free? Yes Yes Yes - Visit Discharge Discharge Condition Stable Stable Stable Ambulatory Status Ambulatory Ambulatory, Ambulatory, Walker Walker Transportation Private Auto Private Auto Private Auto Medication Reconcilliation completed & Yes No provided to patient/care provider Clinical Summary of Care Provided Yes Yes Notes: Vac D/Cd, Surgical C/S with Dr. Gallego. 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: CODE(S): L97.523 - Non-pressure 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 (2) Osteomyelitis: CODE(S): M86.9 - Osteomyelitis, unspecified QUALIFIERS: Osteomyelitis type: unspecified type Osteomyelitis location: foot Laterality: left Qualified Code(s): M86.9 - Osteomyelitis, unspecified (3) Noncompliance with medication regimen: CODE(S): Z91.14 - Patient's other noncompliance with medication regimen (4) Type 2 diabetes mellitus with diabetic polyneuropathy: CODE(S): E11.42 - Type 2 diabetes mellitus with diabetic polyneuropathy QUALIFIERS: Diabetes mellitus snf insulin use: without oil heaterman use Qualified Code(s): E11.42 - Type 2 diabetes mellitus with diabetic polyneuropathy (5) Calcaneal gait: CODE(S): R26.89 - Other abnormalities of gait and mobility PLAN: I reviewed and discussed his case.? Debridement was performed as noted to reduce bioburden. He was recently discharged from the hospital for infected left heel ulcer, osteomyelitis, and sepsis. He is on antibiotics in the management of infectious disease and is scheduled next month for a below-knee amputation with Dr. Gallego. He was also seen today by Dr. De Leon, infectious disease specialist. The goal is to keep his leg infection resolved leading up to his surgery. To proceed forward with using a knee roller or modified scooter.? To continue with wheelchair at this time.? He will continue with hyperbaric oxygen therapy and wound care until his surgical date to keep him as stable as possible to increase the success of his next stage surgery. I recommend continuing with any nutritional supplementation available clinical care home.? His noninvasive vascular studies were reviewed with triphasic PT and DP pulses bilateral.? His right NADIA is 1.12 and left 1.16.? His toe brachial index is 1.12 on the right and 1.34 on the left.? There is no significant segmental pressure drop and therefore no arterial occlusive lesion is suspected.? To change the dressing daily with Dakin wet-to-dry. To wash adjacent skin with antibacterial soap and water. To return to clinic in 1 week for nurse visit and 2 weeks for provider visit. Note: [employer] speech recognition principal military analyst software was used to create portions of this document. Sound-alike and misspelled words, as well as other principal military analyst errors may be contained in the documentation.
== END 2021-03-29 23:59 ==
LOC: WC 14:30
PROVIDERS: Visit Provider Podiatrist
DX: E11.621 Type 2 diabetes mellitus with foot ulcer (principal); L97.523 Non-pressure chronic ulcer of other part of left foot with necrosis of muscle; E11.69 Type 2 diabetes mellitus with other specified complication; M86.172 Other acute osteomyelitis, left ankle and foot; B95.62 Methicillin resistant Staphylococcus aureus infection as the cause of diseases classified elsewhere; Z45.2 Encounter for adjustment and management of vascular access device; E11.42 Type 2 diabetes mellitus with diabetic polyneuropathy; E11.65 Type 2 diabetes mellitus with hyperglycemia; R78.81 Bacteremia; L03.116 Cellulitis of left lower limb; J44.9 Chronic obstructive pulmonary disease, unspecified; R26.9 Unspecified abnormalities of gait and mobility; M06.9 Rheumatoid arthritis, unspecified; F32.9 Major depressive disorder, single episode, unspecified; Z91.19 Patient's noncompliance with other medical treatment and regimen; Z91.14 Patient's other noncompliance with medication regimen; Z79.4 Long term (current) use of insulin; Z79.899 Other long term (current) drug therapy; Z87.891 Personal history of nicotine dependence; Z86.711 Personal history of pulmonary embolism
CPT/HCPCS: 11042; 11045; 36415; 73630; 80048; 80053; 80076; 80202; 82962; 85025; 85027; 85652; 86140; 87015; 87070; 87075; 87077; 87101; 87116; 87176; 87186; 87205; 87206; 87640

== ENCOUNTER 2021-03-25 10:17 | Outpatient (RCR) | payer MEDICAID, SELFPAY ==
[2021-03-05 12:07] VITALS: BMI 26.9
[2021-03-17 11:12] LABS: Erythrocyte Sedimentation Rate 78 mm/hr (0-20)
[2021-03-17 11:14] LABS: Hemoglobin 10.7 g/dL (13.0-16.5); Mean Corp Hgb Conc 32.4 g/dL (32-36); Mean Corpuscular Hgb 28.5 pg (27.0-32.0); Mean Platelet Vol. 10.6 fl (6.2-12.0); Platelet Count 413 K/mm3 (150-450); RBC Distribution Width CV 13.2 % (11.6-14.6); RBC Distribution Width SD 42.5 fl (35.1-43.9); Red Blood Count 3.75 M/mm3 (4.6-6.2); White Blood Count 12.6 K/mm3 (4.4-11.0)
[2021-03-17 11:23] LABS: Vancomycin, Trough Level 14.6 ug/mL (5.0-15.0)
[2021-03-17 11:32] LABS: AST(SGOT) 22 U/L (15-37); Alanine Aminotransfer ALT/SGPT 29 U/L (16-61); Albumin, Serum 3.1 g/dL (3.2-5.0); Alkaline Phosphatase 126 U/L (45-117); Anion Gap 6 (5-15); BUN 16 mg/dL (7-18); BUN/Creat Ratio 18.9 RATIO (10-20); Bilirubin, Direct 0.08 mg/dL (0.00-0.30); Calcium,Total 8.9 mg/dL (8.5-10.1); Chloride 103 mmol/L (98-107); Creatinine, Serum 0.85 mg/dL (0.70-1.30); EST Glomerular Filtration Rate 98 mL/min (>60); Est Glom Filt Rate - Afr Amer 118 mL/min (>60); Globulin 4.4 g/dL (2.2-4.2); Glucose 229 mg/dL (74-106); Protein, Total 7.5 g/dL (6.4-8.2); Sodium Level 139 mmol/L (136-145)
[2021-03-22 12:19] LABS: Erythrocyte Sedimentation Rate 67 mm/hr (0-20); Hematocrit 39.4 % (40-54); Hemoglobin 12.7 g/dL (13.0-16.5); Mean Corp Hgb Conc 32.2 g/dL (32-36); Mean Corpuscular Volume 86.8 fL (80-94); Platelet Count 328 K/mm3 (150-450); RBC Distribution Width CV 12.8 % (11.6-14.6); RBC Distribution Width SD 40.4 fl (35.1-43.9); Red Blood Count 4.54 M/mm3 (4.6-6.2); White Blood Count 9.3 K/mm3 (4.4-11.0)
[2021-03-22 12:20] LABS: AST(SGOT) 16 U/L (15-37); Alanine Aminotransfer ALT/SGPT 19 U/L (16-61); Albumin, Serum 2.8 g/dL (3.2-5.0); Alkaline Phosphatase 128 U/L (45-117); Anion Gap 5 (5-15); BUN 11 mg/dL (7-18); BUN/Creat Ratio 11.1 RATIO (10-20); Bilirubin, Direct 0.12 mg/dL (0.00-0.30); Calcium,Total 9.1 mg/dL (8.5-10.1); Chloride 100 mmol/L (98-107); EST Glomerular Filtration Rate 81 mL/min (>60); Est Glom Filt Rate - Afr Amer 98 mL/min (>60); Globulin 4.7 g/dL (2.2-4.2); Glucose 308 mg/dL (74-106); Potassium 3.7 mmol/L (3.5-5.1); Protein, Total 7.5 g/dL (6.4-8.2); Sodium Level 136 mmol/L (136-145)
[2021-03-25 11:30] LABS: Vancomycin, Trough Level < 0.8 ug/mL (5.0-15.0)
== END 2021-03-25 18:00 | disposition home or self-care (01) ==
LOC: HHLAB 10:17
PROVIDERS: Referring Provider Podiatrist; Visit Provider Internal Medicine Infectious Disease
DX: R78.81 Bacteremia (principal)
CPT/HCPCS: 80048; 80076; 80202; 85027; 85652

== ENCOUNTER 2021-04-06 11:24 | Outpatient (RCR) | payer MEDICAID, SELFPAY ==
[2021-03-29 03:22] VITALS: BMI 26.9
[2021-03-31 15:40] VITALS: BMI 26.9
[2021-04-06 11:44] LABS: Erythrocyte Sedimentation Rate 87 mm/hr (0-20)
[2021-04-06 11:45] LABS: Hematocrit 37.3 % (40-54); Hemoglobin 12.3 g/dL (13.0-16.5); Mean Corpuscular Volume 84.8 fL (80-94); Mean Platelet Vol. 10.1 fl (6.2-12.0); Platelet Count 334 K/mm3 (150-450); RBC Distribution Width CV 12.4 % (11.6-14.6); RBC Distribution Width SD 38.1 fl (35.1-43.9); White Blood Count 9.7 K/mm3 (4.4-11.0)
[2021-04-06 11:51] LABS: Anion Gap 6 (5-15); BUN 11 mg/dL (7-18); BUN/Creat Ratio 12.6 RATIO (10-20); Chloride 100 mmol/L (98-107); Creatinine, Serum 0.87 mg/dL (0.70-1.30); EST Glomerular Filtration Rate 94 mL/min (>60); Est Glom Filt Rate - Afr Amer 114 mL/min (>60); Glucose 244 mg/dL (74-106); Potassium 3.9 mmol/L (3.5-5.1); Sodium Level 137 mmol/L (136-145)
[2021-04-06 11:54] LABS: Vancomycin, Trough Level 2.3 ug/mL (5.0-15.0)
[2021-04-07 08:37] LABS: AST(SGOT) 16 U/L (15-37); Alanine Aminotransfer ALT/SGPT 17 U/L (16-61); Albumin, Serum 2.4 g/dL (3.2-5.0); Alkaline Phosphatase 127 U/L (45-117); Bilirubin, Direct 0.13 mg/dL (0.00-0.30); Protein, Total 6.4 g/dL (6.4-8.2)
== END 2021-04-06 18:00 | disposition home or self-care (01) ==
LOC: HHLAB 11:24
PROVIDERS: Referring Provider Internal Medicine Infectious Disease; Visit Provider Internal Medicine Infectious Disease
DX: A49.02 Methicillin resistant Staphylococcus aureus infection, unspecified site (principal)
CPT/HCPCS: 80048; 80076; 80202; 85027; 85652

== ENCOUNTER 2021-04-07 10:00 | Outpatient (RCR) | payer MEDICAID, SELFPAY ==
[2021-03-29 03:22] VITALS: BMI 26.9
[2021-03-30 00:24] VITALS: BP 164/74; PULSE 113; RESP 18; TEMP 37.1
[2021-03-31 15:40] VITALS: BP 160/72; PULSE 98; RESP 18; TEMP 36.9; BMI 26.9
[2021-04-07 10:34] VITALS: BP 180/94; PULSE 99; RESP 18; TEMP 37.7; BMI 26.9
--- NOTE | 2021-04-07 12:54 | PN.PCM_ITS ---
History of Present Illness Date of Service: 04/07/21 Chief Complaint: Diabetic, left heel ulcer with osteomyelitis History of Wound: This 60-year-old uncontrolled diabetic follows up today for chronic left heel wound. He was previously medically and surgically treated for osteomyelitis with several rounds of reoccurrence. He is ready to proceed forward to below-knee amputation and this is scheduled for later this month with Dr. Gallego. He presents full weightbearing in a surgical shoe on the heel which is not recommended. He uses a walker. He relates he has been taking antibiotics as advised however missed 1 session. I have been notified by his home health that he has missed several sessions. Progress of Wound: Stable Objective Data Objective Data Vital Signs: Vital Signs Temp Pulse Resp BP 99.8 F H 99 18 180/94 H 04/07/21 10:34 04/07/21 10:34 04/07/21 10:34 04/07/21 10:34 Weight: 80.286 kg Body Mass Index (BMI) 26.9 Physical Exam Const alert and oriented x3 General Appearance: cooperative HEENT normocephalic Extremity Extremity Narrative: No calf tenderness Diminished pulses Muscle wasting noted Edema moderate bilateral lower extremities General Extremity: edema and no tenderness to palpation of joints or ext remities; Negative for cyanosis Skin Skin Narrative: no purulence, no streaking, no odor, no infection. Granular f ibrous and devitalized plantar heel ulcer with exposed bone that is schofield and discolored. Adjacent skin is hairless and atrophic. Maceration is noted. No adjacent bogginess or fluctuance. General Skin Exam: Negative for erythema Neuro Neuro Narrative: lack of normal epicritic sensation via light touch is consistent with neuropathy status Psych cooperative and affect normal Debridement Note Debridement Note Post-Debridement Measurements and Additional Note: Predebridement measurement: 4 x 4.5 x 0.5 cm Post debridement measurement: 5 x 4.7 x 0.5 cm Wound debrided: plantar heel Laterality: Left Wound Grade/Stage: 3 Type of Debridement: Excisional debridement Anesthesia Used: 4% Lidocaine Solution Depth: in the subcutaneous layer and to bone Percentage of wound debrided: 100 Instrument Used: #15 blade Tissue Removed: fibrous, devitalized subcutaneous, biofilm, slough Severity: Fat Layer Exposed Amount of bleeding with debridement: Moderate Bleeding Controlled with: Pressure Patient tolerated procedure: Patient tolerated procedure well Assessment/Plan Assessment/Plan (1) Noncompliance with medication regimen: CODE(S): Z91.14 - Patient's other noncompliance with medication regimen (2) 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: CODE(S): L97.523 - Non-pressure 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 (3) Osteomyelitis: CODE(S): M86.9 - Osteomyelitis, unspecified QUALIFIERS: Osteomyelitis type: unspecified type Osteomyelitis location: foot Laterality: left Qualified Code(s): M86.9 - Osteomyelitis, unspecified (4) Type 2 diabetes mellitus with diabetic polyneuropathy: CODE(S): E11.42 - Type 2 diabetes mellitus with diabetic polyneuropathy QUALIFIERS: Diabetes mellitus half-way insulin use: without intermodal customer service use Qualified Code(s): E11.42 - Type 2 diabetes mellitus with diabetic polyneuropathy (5) Calcaneal gait: CODE(S): R26.89 - Other abnormalities of gait and mobility (6) Walking difficulty due to ankle and foot: CODE(S): R26.2 - Difficulty in walking, not elsewhere classified PLAN: I reviewed and discussed his case. Debridement was performed as noted to reduce bioburden. He was recently discharged from the hospital for infected left heel ulcer, osteomyelitis, and sepsis. He is on antibiotics in the management of infectious disease and is scheduled next week for a below-knee amputation with Dr. Gallego. He was also seen today by Dr. De Leon, infectious disease specialist. The goal is to keep his leg infection resolved leading up to his surgery. His noncompliance is noted he was advised to get back on track. To proceed forward with using a knee roller or modified scooter. To continue with wheelchair at this time. He will continue with hyperbaric oxygen therapy and wound care until his surgical date to keep him as stable as possible to increase the success of his next stage surgery. I recommend continuing with any nutritional supplementation available clinical snf. His noninvasive vascular studies were reviewed with triphasic PT and DP pulses bilateral. His right NADIA is 1.12 and left 1.16. His toe brachial index is 1.12 on the right and 1.34 on the left. There is no significant segmental pressure drop and therefore no arterial occlusive lesion is suspected. To change the dressing daily with Dakin wet-to-dry. To wash adjacent skin with antibacterial soap and water. To control edema leading up to surgery to optimize surgical success. To wear compression garment elevate limbs. He will follow-up with Dr. Gallego after surgery. He is discharged from the wound healing center at this time. He will follow up with the foot and ankle Center for his right lower extremity palliative care, risk assessment, and extra-depth diabetic shoe order in process. Note: [employer] speech recognition imaging engineer software was used to create portions of this document. Sound-alike and misspelled words, as well as other imaging engineer errors may be contained in the documentation.
== END 2021-04-07 11:13 | disposition home or self-care (01) ==
LOC: WC 10:00
PROVIDERS: Visit Provider Podiatrist
DX: L97.423 Non-pressure chronic ulcer of left heel and midfoot with necrosis of muscle (principal); M86.8X7 Other osteomyelitis, ankle and foot; E11.40 Type 2 diabetes mellitus with diabetic neuropathy, unspecified; R26.2 Difficulty in walking, not elsewhere classified; Z91.14 Patient's other noncompliance with medication regimen; Z79.4 Long term (current) use of insulin; Z79.899 Other long term (current) drug therapy
CPT/HCPCS: 11042; 11045; 99213; G0463

== ENCOUNTER 2021-04-12 14:05 | Inpatient (IN) | payer MEDICAID, SELFPAY ==
[2021-03-18 15:01] VITALS: BMI 26.9
--- NOTE | 2021-04-11 14:15 | PCM.HP.BLA ---
History and Physical Date of Admission: 04/12/21 HISTORY OF PRESENT ILLNESS 60 M who was recently admitted for a nonhealing infected MRSA diabetic ulcer left heel with associated osteomyelitis. Cultures showed MRSA, Morganella morganii, and Proteus mirabilis. He is currently on Vancomycin and Zosyn. He also has MRSA bacteremia as well. [facility] He was recently placed on Bactrim. He was undergoing HBO treatments and wound care was done with the [facility]. He states he had fever at home prior to admission. He had an x-ray done on 03/03/21 which showed no osteomyelitis and MRI was recommended. He needed IV antibiotics back in November,. MRI was done on 03/05/21. It showed Mild to moderate osteomyelitis on the plantar aspect of the posterior process of the calcaneus. Large soft tissue heel ulcer/wound. He had vascular studies which showed triphasic PT and DP pulses bilateral. His right NADIA is 1.12 and left 1.16. His toe brachial index is 1.12 on the right and 1.34 on the left. There is no significant segmental pressure drop and therefore no arterial occlusive lesion is suspected. WBC was 10.9 upon admission. Today it is 8.1. Latate was 1.0. ESR was 50. CRP was 93.70. Prealbumin was 11.0. HgbA1c from 03/06/21 was 7.3. Amputation was discussed with the patient. He expressed interest because he is tired of dealing with this complex infected diabetic ulcer. He is also concerned about the recent MRSA in his blood. I was asked to evaluate this patient for surgical options for treatment. PAST MEDICAL HISTORY Arthritis Bacteremia 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 COPD (chronic obstructive pulmonary disease) Depression Diabetes Former smoker History of pulmonary embolism MRSA (methicillin resistant Staphylococcus aureus) Osteomyelitis of ankle and foot Substance abuse PAST SURGICAL HISTORY appendectomy neck surgery Hx of LASIK MEDICATIONS insulin glargine insulin lispro ertapenem vancomycin ALLERGIES Onion FAMILY HISTORY Diabetes SOCIAL HISTORY Smoking Status: Former smoker alcohol intake: never substance use type: does not use REVIEW OF SYSTEMS Constitutional: Reports fatigue and weakness, mild occasional fever HEENT: Reports systems reviewed and no addt'l complaints. Respiratory/Chest: Denies shortness of breath with exertion Gastrointestinal: Denies coffee ground emesis, hematemesis or vomiting Genitourinary: Denies burning urination Musculoskeletal: Reports joint pain and limited range of motion. Has nonhealing infected MRSA diabetic ulcer left heel with osteomyelitis. Neurologic: Denies seizure-like activity Endocrinology: Blood sugar is uncontrolled. Hematologic/Lymphatic: History of PE. PHYSICAL EXAMINATION General: Alert, Oriented x3, Cooperative HEENT: PERRLA, EOMI. Oral: No Gingival or Mucosal Lesions/ Ulcerations. Neck: Supple, nontender. No cervical adenopathy. Lungs: Diminished at the bases. Cardiovascular: Regular rate, Regular Rhythm. Abdomen: Soft, Non-Distended. Extremities: Mild left foot edema. Left heel deep ulcer, oval in shape. Measures 5 cm. Some slough and devitalized tissue. Bone is palpable. Teodora-ulcer redness. Neurological: Decreased touch and pressure sensation over left foot and heel. Cranial nerves II-XII grossly intact. Psych/Mental Status: Normal Affect, Appropriate. ASSESSMENT (1) 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: (2) Osteomyelitis of left ankle and foot: (3) MRSA cellulitis of left foot: (4) MRSA (methicillin resistant Staphylococcus aureus) infection: (5) Bacteremia: (6) Diabetes: PLAN MRI reviewed. Vascular studies reviewed. Patient has a complex nonhealing infected MRSA diabetic ulcer left heel with associated osteomyelitis. The ulcer has had aggressive wound care and antibiotic therapy and now has MRSA bacteremia. He was recently receiving [facility]. He is being treated at present with Vancomycin and Zosyn based on cultures that showed MRSA, Morganella morganii,, and Proteus mirabilis. The Anaerobic culture is pending. Patient would benefit from a BKA. Will schedule it in a couple of weeks after he is treated with IV antibiotics and the MRSA bacteremia has cleared. If the ulcer were to worsen in the meantime, then aggressive operative debridement can be done to stabilize the infection and to minimize more proximal spread that may make it difficult to perform a BKA and the patient may end up needing an AKA. His HgbA1c from 03/06/21 was 7.3. Anticipate increased metabolic demands from the infection. Prealbumin was 11.0. Encourage nutritional supplementation with protein to help the healing process. Patient was informed of the risks and complications of the procedure including alternatives to surgery. These were discussed with the patient personally. Patient voices understanding and wishes to proceed. Potential risks and complications included but not inclusive of bleeding, infection seroma, hematoma, bruising, swelling, prolonged need for drains, loss of sensation to skin, partial or complete loss of skin flap and/or nipple graft, wound breakdown, need for wound care, poor scarring, poor aesthetic outcome, intra operative cardiac or neurologic events, DVT, PE, and reaction to anesthesia. We discussed the current risks associated with COVID-19. While it is understood that there is a community spread of COVID-19, the risk of heike COVID-19 while at [facility] ([facility]) is very low; however, the risk cannot be completely mitigated because of the community spread of the disease. We discussed in detail the risk of exposure to and/or potential harm posed by the COVID-19 virus with having a surgery/procedure at this time versus the risk of delaying the surgery/procedure. It is not possible to know either the risk of delaying the surgery or procedure or chance of getting an infection with perfect accuracy, but a joint decision was made to proceed at this time with the scheduled surgery/procedure as indicated on the consent form. Patient was notified that we will need to comply with any screening or testing [facility] wishes to perform or that surgery may be delayed for any positive results. Discussed with the patient that I was tested for COVID-19 on 04/30/20 which was negative and on 05/14/20 which was negative and on 05/28/20 which was negative and on 06/11/20 which was negative and on 06/25/20 which was negative and on 07/16/20 which was negative and on 08/06/20 which was negative and on 09/10/20 which was negative and on 10/01/20 which was negative and on 10/20/20 which was negative. My testing regimen at this time is to be COVID-19 tested every 2 weeks or so. I received the COVID-19 vaccine (Moderna) on 10/28/20 and the second vaccine dose was received on 11/25/20. When I was hospitalized on 12/28/20 I was tested for COVID-19 which was negative. I was also tested for COVID-19 on 01/12/21 which was negative and on 02/08/21 which was negative. Procedure Type: Elective COVID Risk Discussion: The surgeon/proceduralist and patient have discussed in detail the risk of exposure to and/or potential harm posed by the COVID-19 virus with having a surgery/procedure at this time versus the risk of delaying the surgery/procedure. It is not possible to know either the risk of delaying the surgery or procedure or chance of getting an infection with perfect accuracy, but a joint decision was made between the patient and the surgeon/proceduralist to proceed at this time with the scheduled surgery/procedure as indicated on the consent form.
[2021-04-12] VITALS (16 sets, daily range): BP systolic 86–140; BP diastolic 57–97; PULSE 74–169; RESP 14–18; TEMP 36.1–37.4; O2SAT 93–100; BMI 25.8
--- NOTE | 2021-04-12 | BON_PTH ---
PATIENT: LIZETH BURGOS LOC: [facility] U#:[id number] AGE/SX: 61/M ROOM: [facility] RE04/12/[address]: Dr. Cecelia Loyola MD : 1960 BED: 1 DIS: 04/16/2021 SPEC #: [id number] RECD: 04/12/21 13:04 STATUS: WALETR LIGIA #: [id number] KODI: 04/12/21 00:[address]: Mauro Gallego DEPT: SURGICAL PATHOLOGY RECD BY: Felipe Beal ENTERED: 04/12/21 13:04 SP TYPE: Bone OTHR DR: No Primary Care Phys Tissues: Leg, NOS Procedures: Decalcification bone/plaque Surgery Specimen Level V HEADER OPERATION: Amputation below knee PRE-OP DIAGNOSIS: MRSA, chronic ulcer left foot, osteomyelitis ankle and foot TISSUE SUBMITTED: Left lower leg (amputation) MICROSCOPIC DIAGNOSIS Left lower leg, below knee amputation: Focal ulceration (6 x 4 cm), planter surface foot close to the heel with associated acute inflammation. Underlying bone with acute and chronic osteomyelitis. Dorsalis pedis vessel, anterior tibial vessel and posterior tibial vessel with atherosclerotic changes and focal calcifications. SJ:theresa 04/15/2021 MICROSCOPIC DESCRIPTION Slides are reviewed. GROSS DESCRIPTION Received labeled with the patient's name and designated left lower leg. The specimen consists of a below knee amputation of the left lower extremity. The leg measures from posterior cutaneous margin to the heel 16 cm, from heel to tip of the great toe 26 cm. Posterior cutaneous resection margin is 11 cm below the anterior cutaneous resection margin. The anterior cutaneous resection margin is 3 cm below the resection margin of bone. One cm portion of the tibia and 5 cm portion of fibula is projected beyond the anterior cutaneous resection margin. Also present in the container are multiple detached pieces of skeletal muscle tissue measuring in aggregate 15 x 12 x 3 cm. A large area of ulceration is noted on the plantar surface of the foot close to the heel, exposing the bone and measures 6 x 4 cm. The ulcer base is grayish. The nail appears atrophic. Dorsalis pedis, anterior tibial vessel and posterior tibial vessels are dissected. Sections of the vessels do not reveal any significant obliteration of the lumen. Public Safety Director sections are submitted as follows: 1 - cutaneous and skeletal muscle tissue at the resection margin, 2??ulcerated area, 3 - bone marrow at the resection margin, 4 - dorsalis pedis vessel, 5 - posterior tibial vessels, 6 - anterior tibial vessel, 7 - anterior tibial vessel and posterior tibial vessel at the resection margin, 8 - bone underneath the area of ulceration. Sections are submitted after overnight fixation. Cassette 8 is submitted after decalcification. / MIGUEL ANGEL:theresa 04/12/21 TC:2 CPT: 69286, 11334
[2021-04-12] MEDS: Lactated Ringers 1,000 ML 100 ML IV ×3 (08:11→13:21)
[2021-04-12] MEDS: Vancomycin IV 1,000 MG/200 ML BAG 200 MG IV (08:12)
--- NOTE | 2021-04-12 08:19 | EKG12_ITS ---
Test Reason : PRE-OP Blood Pressure : / mmHG Vent. Rate : 082 BPM Atrial Rate : 082 BPM P-R Int : 128 ms QRS Dur : 086 ms QT Int : 394 ms P-R-T Axes : 066 010 069 degrees QTc Int : 460 ms Sinus rhythm with Premature supraventricular complexes Otherwise normal ECG When compared with ECG of 04-OCT-2020 05:46, Premature supraventricular complexes are now Present Confirmed by GILLIAN KEMP, NISSA ([id number]), photo editor HARSHAL MADRIGAL ([id number]) on 04/15/2021 10:11:43 AM Referred By: Mauro Gallego Confirmed By:NISSA FRENCH MD
[2021-04-12 08:31] LABS: Bedside Glucose 292 mg/dL (70-110)
[2021-04-12] MEDS: Insulin Lispro 100 UNIT/ML INSULN.PEN 10 UNIT SC (08:53)
[2021-04-12] MEDS: Mupirocin Ointment 22gm Tube 1 APPLIC (09:30)
[2021-04-12] MEDS: Lidocaine 1% /Epi 1:100 (20ml) 20 ML Vial (09:30)
--- NOTE | 2021-04-12 11:49 | PCM.OPRPT ---
Report of Operation Date of Procedure: 04/12/21 Pre-Operative Diagnosis: (1) 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: (2) Osteomyelitis of left ankle and foot: (3) MRSA cellulitis of left foot: (4) MRSA (methicillin resistant Staphylococcus aureus) infection: (5) Bacteremia: (6) Diabetes: Post-Operative Diagnosis: Same. Surgery/Procedure Performed:: Left below knee amputation. Description of Surgical Findings:: 60 M who was recently admitted for a nonhealing infected MRSA diabetic ulcer left heel with associated osteomyelitis. Cultures showed MRSA, Morganella morganii, and Proteus mirabilis. He is currently on Vancomycin and Zosyn. He also has MRSA bacteremia as well. [facility]. He was recently placed on Bactrim. He was undergoing HBO treatments and wound care was done with the [facility]. He states he had fever at home prior to admission. He had an x-ray done on 03/03/21 which showed no osteomyelitis and MRI was recommended. He needed IV antibiotics back in November,. MRI was done on 03/05/21. It showed Mild to moderate osteomyelitis on the plantar aspect of the posterior process of the calcaneus. Large soft tissue heel ulcer/wound. He had vascular studies which showed triphasic PT and DP pulses bilateral. His right NADIA is 1.12 and left 1.16. His toe brachial index is 1.12 on the right and 1.34 on the left. There is no significant segmental pressure drop and therefore no arterial occlusive lesion is suspected. WBC was 10.9 upon admission. Today it is 8.1. Latate was 1.0. ESR was 50. CRP was 93.70. Prealbumin was 11.0. HgbA1c from 03/06/21 was 7.3. Amputation was discussed with the patient. He expressed interest because he is tired of dealing with this complex infected diabetic ulcer. He is also concerned about the recent MRSA in his blood. I was asked to evaluate this patient for surgical options for treatment. Patient was informed of the risks and complications of the procedure including alternatives to surgery. These were discussed with the patient personally. Patient voices understanding and wishes to proceed. Total tourniquet time - 62 minutes. I used AmnioFix Placental Connective Tissue Graft, 7 x 6 cm. Catalog Number - [id number]. Lot Number - [id number]. Expiration - December 28, 2025. I used Salma absorbable hemostat. Reference Number - [id number]. Lot Number - [id number]. Expiration - December 27, 2025. Surgeon: Mauro Gallego telephone service adviser: Prakash Shah Type of Anesthesia: General Specimen's removed: Left leg (soft tissue and bone) to Pathology. Drains: Kam. Estimated Blood Loss (mL): 50. Description of Procedure: Patient was taken to OR in supine position and was placed under general anesthesia. His left leg was prepped and draped in the usual fashion. A sterile stockinette was placed over the left leg. SCD was placed on the right leg for DVT prophylaxis. Perioperative antibiotics were given intravenously. A katz catheter was then placed. The anterior tibial tubercle was marked. A horizontal marking was made 12 cm distally. I then extended this marking posteriorly and created a posterior flap with a length of 10 cm. When the tibia is exposed, I will mara it at 11 cm for the osteotomy. The fibula will be remove about 1.5 cm proximal to that. These markings were infiltrated with xylocaine with epinephrine. Prior to prepping the patient, a tourniquet was placed on the proximal thigh. The left leg was elevated and an Esmarch bandage was placed for compression as the tourniquet was elevated to 300 mmHg. I made an anterior incision and when I got to the anterior tibia, a horizontal incision was made down to the bone. This horizontal incision was made at 12 cm from the anterior tibial tubercle. I then incised the anterior tibial muscle, the extensor hallucis longus muscle, and the extensor digitorum longus muscle. The anterior tibial vessels were seen and dissected and ligated with Number 2 Silk tie ligatures. The peroneal muscles were then incised laterally. I located the peroneal nerve and placed it on stretch. I incised the nerve and allowed it to retract proximally to minimize neuroma formation. This exposed the fibula. Using a periosteal elevator, I freed up the tibia. I then placed the gigli saw around the tibia at the level of the previous marking at 11 cm from the anterior tibial tubercle. The tibia was then incised. This made it a little easier to get exposure to the tibialis posterior muscle which was incised. The flexor digitorum longus muscle medially and the flexor hallucis longus muscle laterally were incised. This exposed the peroneal vessels laterally and the posterior tibial vessels medially. These vessels were dissected and ligated with Number 2 Silk tie ligatures. The posterior tibial nerve was dissected free and placed on stretch and incised. This allowed the proximal end to retract proximally to minimize neuroma formation on the stump. I dissected the fibula with a periosteal elevator superiorly about 1.5 cm proximal to the tibial osteotomy. I used an oscillating saw to incise the fibula. A rasp was used to smooth out the bony edge. I then extended the skin incision posteriorly and created the posterior flap. I the gastrocnemius muscle from the soleus muscle. The remaining muscle fibers from the soleus muscle were incised as the distal leg was removed from the field. The amputated leg will be sent to Pathology for analysis. In order to close the posterior flap, the soleus muscle was incised thus exposing the gastrocnemius muscle. This thinned the flap enough that I was able to advance the flap anteriorly to cover the bone. A size 15 Kam drain was placed through a separate stab incision laterally and secured to the skin with 3-0 Nylon suture. The drain was used to drain the deeper wound over the bone and brought out into the subcutaneous tissue. Prior to closure of the stump, I beveled the tibia anteriorly with an oscillating saw to smooth out the bone anteriorly. A rasp was used to smooth out the edges of the bone. I then released the tourniquet after 62 minutes. Hemostasis was obtained with electrocautery. Some bleeding was seen posteriorly. There were some perforators seen that were controlled with Number 2 Silk tie ligatures and 4-0 Vicryl suture ligatures. Nothing else needed to be ligated at this time. The wound was irrigated with Irrisept 0.05% chlorhexidine solution followed by saline irrigation. The flaps were viable with no evidence of vascular compromise. I then placed AmnioFix placental connective tissue graft into the wound at the level of the bone to help stimulate the healing process. I used a 7 x 6 cm piece of graft. I was able to cover the tibia with the soleus muscle to the periosteum anteriorly with 2-0 Vicryl figure of eight interrupted sutures. The fascia of the gastrocnemius muscle was then approximated to the fascia and periosteum anteriorly with 2-0 Vicryl figure of eight interrupted sutures. I then sprayed Salma absorbable hemostat into the subcutaneous wound to minimize seroma formation. The deep dermis and subcutaneous tissue was approximated with 2-0 Vicryl interrupted sutures. The skin was approximated with 3-0 Nylon vertical mattress interrupted sutures and simple interrupted sutures. Antibiotic ointment was applied to the suture line followed by Xeroform gauze and Kerlix gauze and ABD pads followed by compression [place] wrap. Patient tolerated the procedure well. He was sent to PACU in satisfactory condition. Patient will be sent upstairs for continued postop care. The drain will be removed in 2-3 weeks. The sutures will be removed in 3-[address] time will place a stump sole leveling machine operator in anticipation for the prosthesis. Grafts/Implants Used: AmnioFix placental connective tissue graft, Salma Complications None. Admit VTE Documentation VTE Present on Admission: No VTE Mechan Device Prophylaxis: SCD's VTE Pharm Prophylaxis ordered?: Yes Addendum Addendum: Surgery Charges CPT - 16273 ICD-10 - E11.621, M86.9, A49.02, L03.116, R78.81, E11.9
[2021-04-12 12:25] LABS: Bedside Glucose 193 mg/dL (70-110)
--- NOTE | 2021-04-12 14:01 | SUR.PHASEI ---
1350 pt had 1-2 min episode of pulse 150s-160s. notified dr gordon. pt asymptomatic. pt history noted of this. dr rogers also made aware. ordered for pt to go to pcu. dr rogers consulted dr luna. awaiting return call for furthur orders. pt bp 114/71.
--- NOTE | 2021-04-12 15:02 | CON.PCM.HO_ITS ---
Documented by User: Sarkis PRITCHARD 04/12/21 15:13 Assessment & Plan Assessment/Plan (1) 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: (2) Diabetes: QUALIFIERS: Diabetes mellitus complication status: with diabetic arthropathy Diabetes mellitus correction insulin use: with correction use Diabetes mellitus type: type 2 Qualified Code(s): E11.610 - Type 2 diabetes mellitus with diabetic neuropathic arthropathy; Z79.4 - exterminator termite (current) use of insulin (3) Osteomyelitis: QUALIFIERS: Laterality: left Osteomyelitis location: foot Osteomyelitis type: unspecified type Qualified Code(s): M86.9 - Osteomyelitis, unspecified (4) MRSA cellulitis of left foot: (5) Bacteremia: (6) Osteomyelitis of ankle and foot: PLAN: Patient is a 61-year-old male who presents to the hospital medicine service on consultation from Dr. Lashonda roldan left below the knee amputation for chronic ulcer of the left foot due to diabetes mellitus, osteomyelitis of the left ankle and foot, MRSA cellulitis of the left foot and bacteremia. 1) S/P Left below the knee amputation Vital signs stable and patient is afebrile. CBC and BMP unremarkable. Plan; continue ertapenem and vancomycin for 48 hours, discontinue on 04/14/2021 per ID. 2) DM2 POC glucose 193, not within goal. Plan; continue Lantus 50 units SC nightly, continue lispro 8 units SC 3 times daily, Accu-Cheks ordered. 3) Arrythmia According to surgeon, patient was observed with periods of SVT during surgery. EKG reviewed demonstrated normal sinus rhythm with PVCs. Plan; PCU for cardiac telemetry monitoring. DVT prophylaxis -not indicated Patient seen by Sarkis Sandoval PA-C, under the supervision of Dr. Hudson HPI Consult Data Date of Consult: 04/12/21 HPI Narrative HPI Narrative: Patient is a 61-year-old male who presents to the hospital medicine service on consultation from Dr. Lashonda roldan left below the knee amputation for chronic ulcer of the left foot due to diabetes mellitus, osteomyelitis of the left ankle and foot, MRSA cellulitis of the left foot and bacteremia. Patient is currently recovering from surgery at this time and has no complaints on my examination. Denies chest pain, shortness of breath, palpitations, hemoptysis, sputum production, fever, chills, N/V/D. [facility] Medical History (Updated 04/05/21 @ 13:38 by Olimpia Lundberg) Arthritis Bacteremia Blackout 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 COPD (chronic obstructive pulmonary disease) Depression Diabetes DVT (deep venous thrombosis) Former smoker Lilibeth-lilibeth disease History of edema History of heart attack History of pulmonary embolism History of transesophageal echocardiography (BUCK) (~03/11/21) Infection of left foot Injury of head and neck Insulin dependent diabetes mellitus MRSA (methicillin resistant Staphylococcus aureus) MRSA cellulitis of left foot Normal echocardiogram (~03/08/21) Osteomyelitis of ankle and foot Substance abuse Type 2 diabetes mellitus without complications Uses wheelchair Walker as ambulation aid Home Medications blood sugar diagnostic #200 each 01/28/21 [Rx Last Taken Unknown] lancets #200 each 02/03/21 [Rx Last Taken Unknown] pen needle, diabetic 31 gauge x 3/16 #100 each 02/03/21 [Rx Last Taken Unknown] insulin lispro [Humalog KwikPen Insulin] 8 unit SUBCUT TIDCM 03/05/21 [History Last Taken Unknown] vancomycin in 0.9 % sodium chl 1.5 g IV Q12H 40 Days #80 bag 03/10/21 [Rx Last Taken Unknown] ertapenem [Invanz] 1 g IV Q24H 04/05/21 [History Last Taken Unknown] insulin glargine [Lantus Solostar U-100 Insulin] 50 unit SC QHS 04/05/21 [History Last Taken Unknown] Allergy/AdvReac Type Severity Reaction Status Date / Time onion Allergy Food Verified 04/12/21 08:01 Allergy Family History Grandmother Diabetes Surgical History (Updated 04/05/21 @ 13:24 by Olimpia Lundberg) History of appendectomy History of neck surgery Hx of foot surgery (~10/04/20) Hx of LASIK Social History Smoking Status: Former smoker alcohol intake: never substance use type: does not use what type of physical activity do you participate in: none ROS ROS Narrative ROS not able to be obtained as patient was still in and out of consciousness after surgery. Review of Systems ROS Unobtainable: due to mental status and other Physical Exam Const alert Orientation / Consciousness: disoriented and lethargic HEENT normocephalic, head/scalp atraumatic and hearing grossly normal bilaterally Eyes EOMs intact bilaterally and conjunctivae normal Neck no lymphadenopathy, supple and no JVD Resp normal respiratory effort, no retractions and no use of accessory muscles Cardio regular rate, regular rhythm, no murmurs and no JVD GI normal to inspection, nondistended, normoactive bowel sounds, soft to palpation and non-tender Extremity normal to inspection Skin no rashes or lesions noted, no wounds and skin turgor normal Neuro CN's II-XII intact bilaterally Psych affect normal Lab / Micro Data Result Diagrams: 04/12/21 15:27 04/12/21 15:27 Labs: Laboratory Results - last 24 hr 04/12/21 04/12/21 08:20 12:21 POC Glucose 292 H 193 H Documented by User: Dr. David Hudson, 04/12/21 17:19 HPI Consult Data Date of Consult: 04/12/21 [facility] Medical History (Updated 04/05/21 @ 13:38 by Olimpia Lundberg) Arthritis Bacteremia Blackout 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 COPD (chronic obstructive pulmonary disease) Depression Diabetes DVT (deep venous thrombosis) Former smoker Lilibeth-lilibeth disease History of edema History of heart attack History of pulmonary embolism History of transesophageal echocardiography (BUCK) (~03/11/21) Infection of left foot Injury of head and neck Insulin dependent diabetes mellitus MRSA (methicillin resistant Staphylococcus aureus) MRSA cellulitis of left foot Normal echocardiogram (~03/08/21) Osteomyelitis of ankle and foot Substance abuse Type 2 diabetes mellitus without complications Uses wheelchair Walker as ambulation aid Home Medications blood sugar diagnostic #200 each 01/28/21 [Rx Last Taken Unknown] lancets #200 each 02/03/21 [Rx Last Taken Unknown] pen needle, diabetic 31 gauge x 01/12 #100 each 02/03/21 [Rx Last Taken Unknown] insulin lispro [Humalog KwikPen Insulin] 8 unit SUBCUT TIDCM 03/05/21 [History Last Taken Unknown] vancomycin in 0.9 % sodium chl 1.5 g IV Q12H 40 Days #80 bag 03/10/21 [Rx Last Taken Unknown] ertapenem [Invanz] 1 g IV Q24H 04/05/21 [History Last Taken Unknown] insulin glargine [Lantus Solostar U-100 Insulin] 50 unit SC QHS 04/05/21 [History Last Taken Unknown] Allergy/AdvReac Type Severity Reaction Status Date / Time onion Allergy Food Verified 04/12/21 08:01 Allergy Family History Grandmother Diabetes Surgical History (Updated 04/05/21 @ 13:24 by Olimpia Lundberg) History of appendectomy History of neck surgery Hx of foot surgery (~10/04/20) Hx of LASIK Social History Smoking Status: Former smoker alcohol intake: never substance use type: does not use what type of physical activity do you participate in: none Lab / Micro Data Result Diagrams: 04/12/21 15:27 04/12/21 15:27 Charges/Coding Addendum Addendum: Patient was seen and examined independently of Sarkis Sandoval, he underwent a left below the knee amputation today due to problems with chronic osteomyelitis. Chronic medical problems include chronic obstructive pulmonary disease, rheumatoid arthritis, type 2 diabetes, and MRSA blood infection. Patient had an episode of sinus tachycardia preop and postop today after his left below the knee amputation with rates of approximately 150-160 which spontaneously ablated. He currently is in normal sinus rhythm at this time, EKGs obtained today showed normal sinus rhythm with PACs. At the time my examination, patient appears comfortable and slightly drowsy. On examination he appeared in good health and spirits. Vital signs as documented. Skin warm and dry and without overt rashes. Neck without JVD, neck was supple, trachea midline, thyroid was normal. Lungs clear bilaterally, normal air movement was noted. Heart exam notable for regular rhythm, normal sounds and absence of murmurs, rubs or gallops. Abdomen unremarkable and without evidence of organomegaly, masses, or abdominal aortic enlargement. Bowel sounds are present, abdomen is not distended. Extremities-left leg is wrapped with surgical dressing, no cyanosis was noted on the right leg, no clubbing was noted. Neuro: Cranial nerves II through XII are grossly intact, no focal motor deficits were noted, sensation to light touch and pinprick intact, motor exam 5/5 throughout. Psych: Patient is alert and oriented x3, he does not appear anxious or depressed, he does not appear agitated. Patient will remain on IV antibiotics for the next 48 hours, I talked briefly with the rehab unit today () who will evaluate the patient for possible short-term placement there. Patient's home medications will be continued, blood sugars will be monitored. Patient will be monitored on telemetry for further episodes of tachycardia, I do not feel that he needs a work-up at this time. I have reviewed Sarkis Sandoval's progress note including his medical assessment and plan of care and endorse it. Visit Charges Inpatient E&M: 81356 Subs Hosp L2
[2021-04-12] MEDS: Lactated Ringers 1,000 ML 60 ML IV (15:37)
[2021-04-12 16:03] LABS: Absolute Lymphocyte Count 1.92 X10^3/uL (0.83-4.51); Absolute Neutrophil Count 7.3 X10^3/uL (2.0-7.7); Basophil# 0.04 X10^3/uL; Basophil% 0.4 % (0-1); Eosinophil# 0.35 X10^3/uL; Eosinophils% 3.3 % (0-5); Hematocrit 34.6 % (40-54); Lymphocyte # 1.92 X10^3/ul (0.83-4.51); Lymphocyte % 18.3 % (19-41); Mean Corp Hgb Conc 31.8 g/dL (32-36); Mean Corpuscular Hgb 27.6 pg (27.0-32.0); Mean Corpuscular Volume 86.7 fL (80-94); Mean Platelet Vol. 9.6 fl (6.2-12.0); Monocyte# 0.85 X10^3/uL; Monocyte% 8.1 % (0-10); NRBC Flagged by Analyzer 0 % (0-5); Neutrophil # 7.29 X10^3/uL (2.7-7.7); Neutrophil % 69.4 % (47-70); Platelet Count 336 K/mm3 (150-450); RBC Distribution Width CV 12.3 % (11.6-14.6); RBC Distribution Width SD 39.4 fl (35.1-43.9); Red Blood Count 3.99 M/mm3 (4.6-6.2); White Blood Count 10.5 K/mm3 (4.4-11.0)
[2021-04-12 16:47] LABS: ALB/GLOB Ratio 0.5 RATIO (0.9-2.4); AST(SGOT) 18 U/L (15-37); Alanine Aminotransfer ALT/SGPT 12 U/L (16-61); Albumin, Serum 2.3 g/dL (3.2-5.0); Alkaline Phosphatase 110 U/L (45-117); Anion Gap 7 (5-15); BUN 18 mg/dL (7-18); BUN/Creat Ratio 17.8 RATIO (10-20); Calcium,Total 8.4 mg/dL (8.5-10.1); Chloride 100 mmol/L (98-107); Creatinine, Serum 1.01 mg/dL (0.70-1.30); EST Glomerular Filtration Rate 80 mL/min (>60); Est Glom Filt Rate - Afr Amer 96 mL/min (>60); Globulin 4.3 g/dL (2.2-4.2); Glucose 186 mg/dL (74-106); Potassium 3.5 mmol/L (3.5-5.1); Protein, Total 6.6 g/dL (6.4-8.2); Sodium Level 139 mmol/L (136-145)
[2021-04-12] MEDS: HYDROmorphone 1 MG/ML Syringe IV ×2 (17:01→21:55)
[2021-04-12] MEDS: Insulin Lispro 100 UNIT/ML INSULN.PEN 8 UNIT SC (17:50)
[2021-04-12 17:56] LABS: Bedside Glucose 196 mg/dL (70-110)
[2021-04-12] MEDS: oxyCODONE 5 MG Tablet 10 MG PO (18:56)
[2021-04-12 20:58] LABS: Vancomycin, Random Level 8.5 ug/mL (0.0-15.0)
--- NOTE | 2021-04-12 21:16 | PCM.RX.CS ---
Consult Pharmacy has been consulted to manage selected antiobiotic: Vancomycin Type of Consult: New start Suspected Infection: Osteomyelitis Prior Doses of Antibiotics Received/Current Regimen: Medications Vancomycin HCl 1,250 mg/ (Sodium Chloride) 275 mls @ 167 mls/hr IV Q12H TEDDY Stop: 04/14/21 11:40 Discontinued Medications Vancomycin HCl (Vancomycin) 1,000 mg in 200 mls @ 200 mls/hr IV PREOP ONE Stop: 04/12/21 09:59 Last Admin: 04/12/21 09:51 Dose: Infused Labs: Sodium 139 mmol/L (136-145) 04/12/21 15:27 Potassium 3.5 mmol/L (3.5-5.1) 04/12/21 15:27 Chloride 100 mmol/L (98-107) 04/12/21 15:27 Carbon Dioxide 32.0 mmol/L (21.0-32.0) 04/12/21 15:27 Anion Gap 7 (5-15) 04/12/21 15:27 BUN 18 mg/dL (7-18) 04/12/21 15:27 Creatinine 1.01 mg/dL (0.70-1.30) 04/12/21 15:27 Est GFR (MDRD) Af Amer 96 mL/min (>60) 04/12/21 15:27 Est GFR (MDRD) Non-Af 80 mL/min (>60) 04/12/21 15:27 BUN/Creatinine Ratio 17.8 RATIO (10-20) 04/12/21 15:27 Glucose 186 mg/dL (74-106) H 04/12/21 15:27 Random Vancomycin 8.5 ug/mL (0.0-15.0) 04/12/21 19:50 Weight used for dosin.6 kg Estimated Creatinine Clearance: 78 Goal Trough: 15-20 mcg/mL Pharmacy Plan for Drug Dosing: A pre-op vancomycin dose of 1000mg was given 04/12/21 @0812. Because this was continuing patient's home therapy, a random vancomycin level was drawn 04/12/21 @1950. The level was 8.5. Continuing dose was calculated as 1250mg q12h. This will be continued through the morning dose on 04/14/21, per I.D.'s recommendation. No further levels have been ordered. Pharmacy Service will continue to monitor and adjust dosing as required.
[2021-04-12] MEDS: Docusate Sodium 100 MG Capsule PO (21:24)
[2021-04-12] MEDS: Insulin Lispro 100 UNIT/ML INSULN.PEN SC (21:48)
[2021-04-12 23:06] LABS: Bedside Glucose 177 mg/dL (70-110)
[2021-04-13] VITALS (10 sets, daily range): BP systolic 104–132; BP diastolic 54–69; PULSE 64–99; RESP 16–18; TEMP 36.7–37.1; O2SAT 93–100; BMI 25.8
[2021-04-13] MEDS: HYDROmorphone 1 MG/ML Syringe IV (05:57)
[2021-04-13] MEDS: Lactated Ringers 1,000 ML 60 ML IV ×2 (05:59→23:25)
[2021-04-13 06:27] LABS: Hematocrit 36.3 % (40-54); Hemoglobin 11.8 g/dL (13.0-16.5); Mean Corp Hgb Conc 32.5 g/dL (32-36); Mean Corpuscular Hgb 28.3 pg (27.0-32.0); Mean Corpuscular Volume 87.1 fL (80-94); Mean Platelet Vol. 9.7 fl (6.2-12.0); Platelet Count 353 K/mm3 (150-450); RBC Distribution Width CV 12.2 % (11.6-14.6); RBC Distribution Width SD 39.3 fl (35.1-43.9); Red Blood Count 4.17 M/mm3 (4.6-6.2); White Blood Count 14.3 K/mm3 (4.4-11.0)
[2021-04-13 06:55] LABS: Anion Gap 6 (5-15); BUN 16 mg/dL (7-18); BUN/Creat Ratio 17.4 RATIO (10-20); Calcium,Total 8.4 mg/dL (8.5-10.1); Chloride 98 mmol/L (98-107); Creatinine, Serum 0.92 mg/dL (0.70-1.30); EST Glomerular Filtration Rate 89 mL/min (>60); Est Glom Filt Rate - Afr Amer 108 mL/min (>60); Estimated Creatinine Clearance 85.96 ml/min; Glucose 138 mg/dL (74-106); Potassium 3.5 mmol/L (3.5-5.1); Prealbumin 10.7 mg/dL (20.0-40.0); Sodium Level 133 mmol/L (136-145)
[2021-04-13 07:00] LABS: Bedside Glucose 148 mg/dL (70-110)
[2021-04-13] MEDS: Docusate Sodium 100 MG Capsule PO (08:35)
[2021-04-13] MEDS: Enoxaparin 40 MG/0.4 ML Syringe SC (08:35)
[2021-04-13] MEDS: oxyCODONE 5 MG Tablet 10 MG PO ×3 (08:42→20:58)
[2021-04-13] MEDS: Insulin Lispro 100 UNIT/ML INSULN.PEN 8 UNIT SC ×2 (09:04→17:06)
--- NOTE | 2021-04-13 09:51 | PN.SURG_ITS ---
Subjective Subjective Postop #1 from left below knee amputation. Patient resting quietly in bed. Patient states he has been having pain. Objective Data Objective Data Vital Signs: Vital Signs Temp Pulse Resp BP Pulse Ox 98.3 F 64 18 104/60 94 04/13/21 09:08 04/13/21 09:08 04/13/21 09:08 04/13/21 09:08 04/13/21 09:08 Oxygen Delivery Method Room Air Weight: 179 lb 14.355 oz Body Mass Index (BMI) 25.8 Intake & Output: Intake and Output for Last 24 Hours 04/11/21 04/12/21 04/13/21 23:59 23:59 23:59 Intake Total 2476.67 / 2676.67 1823 / 1823 Output Total 755 / 1105 1175 / 1175 Balance 1721.67 / 1571.67 648 / 648 Kam drain output is 80 ml. Lab / Micro Data Result Diagrams: 04/13/21 05:52 04/13/21 05:52 Labs: Laboratory Results - last 24 hr 04/12/21 04/12/21 04/12/21 12:21 15:27 15:27 WBC 10.5 RBC 3.99 L Hgb 11.0 L Hct 34.6 L MCV 86.7 MCH 27.6 MCHC 31.8 L RDW Std Deviation 39.4 RDW Coeff of Cheri 12.3 Plt Count 336 MPV 9.6 Immature Gran % (Auto) 0.500 Neut % (Auto) 69.4 Lymph % (Auto) 18.3 L [place] % (Auto) 8.1 Eos % (Auto) 3.3 Baso % (Auto) 0.4 Absolute Neuts (auto) 7.3 Absolute Lymphs (auto) 1.92 Nucleated RBC % 0 Sodium 139 Potassium 3.5 Chloride 100 Carbon Dioxide 32.0 Anion Gap 7 BUN 18 Creatinine 1.01 Estim Creat Clear Calc 78.30 Est GFR (MDRD) Af Amer 96 Est GFR (MDRD) Non-Af 80 BUN/Creatinine Ratio 17.8 Glucose 186 H Calcium 8.4 L Total Bilirubin 0.50 AST 18 ALT 12 L Alkaline Phosphatase 110 Total Protein 6.6 Albumin 2.3 L Globulin 4.3 H Albumin/Globulin Ratio 0.5 L Prealbumin Random Vancomycin POC Glucose 193 H 04/12/21 04/12/2121 17:42 19:50 21:47 WBC RBC Hgb Hct MCV MCH MCHC RDW Std Deviation RDW Coeff of Cheri Plt Count MPV Immature Gran % (Auto) Neut % (Auto) Lymph % (Auto) [place] % (Auto) Eos % (Auto) Baso % (Auto) Absolute Neuts (auto) Absolute Lymphs (auto) Nucleated RBC % Sodium Potassium Chloride Carbon Dioxide Anion Gap BUN Creatinine Estim Creat Clear Calc Est GFR (MDRD) Af Amer Est GFR (MDRD) Non-Af BUN/Creatinine Ratio Glucose Calcium Total Bilirubin AST ALT Alkaline Phosphatase Total Protein Albumin Globulin Albumin/Globulin Ratio Prealbumin Random Vancomycin 8.5 POC Glucose 196 H 177 H 04/13/21 04/13/21 04/13/21 05:52 05:52 06:53 WBC 14.3 H RBC 4.17 L Hgb 11.8 L Hct 36.3 L MCV 87.1 MCH 28.3 MCHC 32.5 RDW Std Deviation 39.3 RDW Coeff of Cheri 12.2 Plt Count 353 MPV 9.7 Immature Gran % (Auto) Neut % (Auto) Lymph % (Auto) [place] % (Auto) Eos % (Auto) Baso % (Auto) Absolute Neuts (auto) Absolute Lymphs (auto) Nucleated RBC % Sodium 133 L Potassium 3.5 Chloride 98 Carbon Dioxide 29.0 Anion Gap 6 BUN 16 Creatinine 0.92 Estim Creat Clear Calc 85.96 Est GFR (MDRD) Af Amer 108 Est GFR (MDRD) Non-Af 89 BUN/Creatinine Ratio 17.4 Glucose 138 H Calcium 8.4 L Total Bilirubin AST ALT Alkaline Phosphatase Total Protein Albumin Globulin Albumin/Globulin Ratio Prealbumin 10.7 L Random Vancomycin POC Glucose 148 H Physical Exam Const oriented x3 and no apparent distress Resp normal respiratory effort Cardio regular rate GI soft to palpation Extremity Extremity Narrative: Left below the knee amputation operative dressing removed. Sutures dry and intact. Kam drain intact draining serosanguineous drainage. Able to bend knee without difficulty although it does increase his pain. Minimal swelling. Xeroform gauze in place over the sutures, gauze 4x4 secured with Kerlix and [place] wrap for compression. Patient tolerated dressing change well. Assessment & Plan Assessment/Plan (1) 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: (2) Osteomyelitis of ankle and foot: (3) MRSA cellulitis of left foot: (4) MRSA (methicillin resistant Staphylococcus aureus): (5) Bacteremia: (6) Diabetes: QUALIFIERS: Diabetes mellitus type: type 2 Diabetes mellitus superintendent container terminal insulin use: with superintendent container terminal use Diabetes mellitus complication status: with diabetic arthropathy Qualified Code(s): E11.610 - Type 2 diabetes mellitus with diabetic neuropathic arthropathy; Z79.4 - superintendent container terminal (current) use of insulin PLAN: Dressing changed today on left BKA. Incision and sutures are dry and intact. Xeroform gauze in place over the sutures. Topped with gauze and secured with kerlix. [place]ON wrap for compression. Will order Mupirocin ointment to apply to suture line starting tomorrow with the daily dressing changes. Kam drain has had 80 ml of serosanguineous drainage. Pain is controlled with both oral and IV pain meds. Receiving Vancomycin antibiotics. Will start physical therapy for evaluation with transfers and mobility. He may need placement until he is able to safely care for himself at home. On discharge he will follow up at the wound care center.
--- NOTE | 2021-04-13 10:41 | CASEMGMT ---
Call from [facility] and they state that pt was non-compliant with IV antibx after d/c in February, which is why he now needed amputation. Per N, if pt does not go to SNF/rehab at discharge then they will not be willing to take him back d/t non-compliance. CM to follow. Isabella MARSH CM
--- NOTE | 2021-04-13 10:41 | PCM.PN.HOSP ---
Documented by User: Sarkis PRITCHARD 04/13/21 10:48 Subjective Subjective Patient is a 61-year-old male comfortably resting in bed, alert and orient x3. Patient denies any progression of symptoms from yesterday. Denies chest pain, shortness of breath, palpitations, hemoptysis, sputum production, fever, chills, N/V/D. Objective Data Objective Data Vital Signs: Vital Signs Temp Pulse Resp BP Pulse Ox 98.3 F 64 18 104/60 94 04/13/21 09:08 04/13/21 09:08 04/13/21 09:08 04/13/21 09:08 04/13/21 09:08 Oxygen Delivery Method Room Air Weight: 179 lb 14.355 oz Body Mass Index (BMI) 25.8 Intake & Output: Intake and Output for Last 24 Hours 04/11/21 04/12/21 04/13/21 23:59 23:59 23:59 Intake Total 2476.67 / 2676.67 1763 / 1763 Output Total 755 / 1105 1175 / 1175 Balance 1721.67 / 1571.67 588 / 588 Lab / Micro Data Result Diagrams: 04/13/21 05:52 04/13/21 05:52 Labs: Laboratory Results - last 24 hr 04/12/21 04/12/21 04/12/21 12:21 15:27 15:27 WBC 10.5 RBC 3.99 L Hgb 11.0 L Hct 34.6 L MCV 86.7 MCH 27.6 MCHC 31.8 L RDW Std Deviation 39.4 RDW Coeff of Cheri 12.3 Plt Count 336 MPV 9.6 Immature Gran % (Auto) 0.500 Neut % (Auto) 69.4 Lymph % (Auto) 18.3 L [place] % (Auto) 8.1 Eos % (Auto) 3.3 Baso % (Auto) 0.4 Absolute Neuts (auto) 7.3 Absolute Lymphs (auto) 1.92 Nucleated RBC % 0 Sodium 139 Potassium 3.5 Chloride 100 Carbon Dioxide 32.0 Anion Gap 7 BUN 18 Creatinine 1.01 Estim Creat Clear Calc 78.30 Est GFR (MDRD) Af Amer 96 Est GFR (MDRD) Non-Af 80 BUN/Creatinine Ratio 17.8 Glucose 186 H Calcium 8.4 L Total Bilirubin 0.50 AST 18 ALT 12 L Alkaline Phosphatase 110 Total Protein 6.6 Albumin 2.3 L Globulin 4.3 H Albumin/Globulin Ratio 0.5 L Prealbumin Random Vancomycin POC Glucose 193 H 04/12/21 04/12/21 04/12/21 17:42 19:50 21:47 WBC RBC Hgb Hct MCV MCH MCHC RDW Std Deviation RDW Coeff of Cheri Plt Count MPV Immature Gran % (Auto) Neut % (Auto) Lymph % (Auto) [place] % (Auto) Eos % (Auto) Baso % (Auto) Absolute Neuts (auto) Absolute Lymphs (auto) Nucleated RBC % Sodium Potassium Chloride Carbon Dioxide Anion Gap BUN Creatinine Estim Creat Clear Calc Est GFR (MDRD) Af Amer Est GFR (MDRD) Non-Af BUN/Creatinine Ratio Glucose Calcium Total Bilirubin AST ALT Alkaline Phosphatase Total Protein Albumin Globulin Albumin/Globulin Ratio Prealbumin Random Vancomycin 8.5 POC Glucose 196 H 177 H 04/13/21 04/13/21 04/13/21 05:52 05:52 06:53 WBC 14.3 H RBC 4.17 L Hgb 11.8 L Hct 36.3 L MCV 87.1 MCH 28.3 MCHC 32.5 RDW Std Deviation 39.3 RDW Coeff of Cheri 12.2 Plt Count 353 MPV 9.7 Immature Gran % (Auto) Neut % (Auto) Lymph % (Auto) [place] % (Auto) Eos % (Auto) Baso % (Auto) Absolute Neuts (auto) Absolute Lymphs (auto) Nucleated RBC % Sodium 133 L Potassium 3.5 Chloride 98 Carbon Dioxide 29.0 Anion Gap 6 BUN 16 Creatinine 0.92 Estim Creat Clear Calc 85.96 Est GFR (MDRD) Af Amer 108 Est GFR (MDRD) Non-Af 89 BUN/Creatinine Ratio 17.4 Glucose 138 H Calcium 8.4 L Total Bilirubin AST ALT Alkaline Phosphatase Total Protein Albumin Globulin Albumin/Globulin Ratio Prealbumin 10.7 L Random Vancomycin POC Glucose 148 H Physical Exam Const alert, oriented x3 and no apparent distress HEENT head/scalp atraumatic and moist oral mucous membranes Head and Scalp: normocephalic Eyes PERRL, EOMs intact bilaterally and conjunctivae normal Neck no lymphadenopathy, supple and no JVD Resp normal respiratory effort, no retractions, no use of accessory muscles and clear to auscultation bilaterally Cardio regular rate, regular rhythm, no murmurs and no JVD GI normal to inspection, nondistended, normoactive bowel sounds and soft to palpation Extremity normal to inspection and full ROM Skin no rashes or lesions noted, no wounds and skin turgor normal Neuro CN's II-XII intact bilaterally Psych affect normal Assessment & Plan Assessment/Plan (1) 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: (2) Diabetes: QUALIFIERS: Diabetes mellitus complication status: with diabetic arthropathy Diabetes mellitus church supervisor insulin use: with church supervisor use Diabetes mellitus type: type 2 Qualified Code(s): E11.610 - Type 2 diabetes mellitus with diabetic neuropathic arthropathy; Z79.4 - residential (current) use of insulin (3) Osteomyelitis: QUALIFIERS: Laterality: left Osteomyelitis location: foot Osteomyelitis type: unspecified type Qualified Code(s): M86.9 - Osteomyelitis, unspecified (4) MRSA cellulitis of left foot: (5) Bacteremia: (6) Osteomyelitis of ankle and foot: PLAN: Patient is a 61-year-old male who presents to the hospital medicine service on consultation from Dr. 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 1) S/P Left below the knee amputation Vital signs stable and patient is afebrile. Mild leukocytosis at 14,000. Plan; continue ertapenem and vancomycin for 48 hours, discontinue on 04/14/2021, per ID. 2) DM2 POC glucose 193, not within goal. Plan; continue Lantus 50 units SC nightly, continue lispro 8 units SC 3 times daily, Accu-Cheks ordered, SSI ordered. 3) Arrythmia According to surgeon, patient was observed with periods of SVT during surgery. EKG reviewed demonstrated normal sinus rhythm with PACs. Plan; PCU for cardiac telemetry monitoring. 4) hyponatremia Sodium currently 133. Plan; continue to monitor BMP, lactated Ringer's ordered. DVT prophylaxis - not indicated Patient seen by Sarkis Sandoval PA-C, under the supervision of Dr. Loyola. Documented by User: Dr. Cecelia Loyola MD 04/13/21 12:46 Objective Data Lab / Micro Data Result Diagrams: 04/13/21 05:52 04/13/21 05:52 Charges/Coding Addendum Addendum: Patient seen by Sarkis Sandoval PA-C under my supervision Patient seen and examined. Patient had a left BKA by plastic surgery on account of her chronic nonhealing diabetic foot ulcer. Hospitalist service was consulted for medical management and also because he was noted to be having SVT and the operating room. Patient has no complaints today and feels well. He denies any chest pain, shortness of breath, palpitations, dizziness, nausea or vomiting. Review of symptoms otherwise negative. [facility] [id number] [place] [address] Progress Note - Ijztnwymsrh92/15/21 1041MR#: [id number]:LIZETH BURGOSRep #:[id number]: [id number]: Sarkis Sandoval PAPCP:Care Physician, No Primary Status:ADM INLocation: [id number] Subjective Subjective Patient is a 61-year-old male comfortably resting in bed, alert and orient x3. Patient denies any progression of symptoms from yesterday. Denies chest pain, shortness of breath, palpitations, hemoptysis, sputum production, fever, chills, N/V/D. Objective Data Objective Data Vital Signs: Vital Signs Temp Pulse Resp BP Pulse Ox 98.3 F 64 18 104/60 94 04/13/21 09:08 04/13/21 09:08 04/13/21 09:08 04/13/21 09:08 04/13/21 09:08 Oxygen Delivery Method Room Air Weight: 179 lb 14.355 oz Body Mass Index (BMI) 25.8 Intake & Output:Intake and Output for Last 24 Hours 04/11/21 04/12/21 04/13/21 23:59 23:59 23:59 Intake Total 2476.67 / 2676.67 1763 / 1763 Output Total 755 / 1105 1175 / 1175 Balance 1721.67 / 1571.67 588 / 588 Lab / Micro Data Result Diagrams: 04/13/21 05:52 document embedded image 04/13/21 05:52 document embedded image Labs:Laboratory Results - last 24 hr 04/12/21 04/12/21 04/12/21 12:21 15:27 15:27 WBC 10.5 RBC 3.99 L Hgb 11.0 L Hct 34.6 L MCV 86.7 MCH 27.6 MCHC 31.8 L RDW Std Deviation 39.4 RDW Coeff of Cheri 12.3 Plt Count 336 MPV 9.6 Immature Gran % (Auto) 0.500 Neut % (Auto) 69.4 Lymph % (Auto) 18.3 L [place] % (Auto) 8.1 Eos % (Auto) 3.3 Baso % (Auto) 0.4 Absolute Neuts (auto) 7.3 Absolute Lymphs (auto) 1.92 Nucleated RBC % 0 Sodium 139 Potassium 3.5 Chloride 100 Carbon Dioxide 32.0 Anion Gap 7 BUN 18 Creatinine 1.01 Estim Creat Clear Calc 78.30 Est GFR (MDRD) Af Amer 96 Est GFR (MDRD) Non-Af 80 BUN/Creatinine Ratio 17.8 Glucose 186 H Calcium 8.4 L Total Bilirubin 0.50 AST 18 ALT 12 L Alkaline Phosphatase 110 Total Protein 6.6 Albumin 2.3 L Globulin 4.3 H Albumin/Globulin Ratio 0.5 L Prealbumin Random Vancomycin POC Glucose 193 H 04/12/21 04/12/21 04/12/21 17:42 19:50 21:47 WBC RBC Hgb Hct MCV MCH MCHC RDW Std Deviation RDW Coeff of Cheri Plt Count MPV Immature Gran % (Auto) Neut % (Auto) Lymph % (Auto) [place] % (Auto) Eos % (Auto) Baso % (Auto) Absolute Neuts (auto) Absolute Lymphs (auto) Nucleated RBC % Sodium Potassium Chloride Carbon Dioxide Anion Gap BUN Creatinine Estim Creat Clear Calc Est GFR (MDRD) Af Amer Est GFR (MDRD) Non-Af BUN/Creatinine Ratio Glucose Calcium Total Bilirubin AST ALT Alkaline Phosphatase Total Protein Albumin Globulin Albumin/Globulin Ratio Prealbumin Random Vancomycin 8.5 POC Glucose 196 H 177 H 04/13/21 04/13/21 04/13/21 05:52 05:52 06:53 WBC 14.3 H RBC 4.17 L Hgb 11.8 L Hct 36.3 L MCV 87.1 MCH 28.3 MCHC 32.5 RDW Std Deviation 39.3 RDW Coeff of Cheri 12.2 Plt Count 353 MPV 9.7 Immature Gran % (Auto) Neut % (Auto) Lymph % (Auto) [place] % (Auto) Eos % (Auto) Baso % (Auto) Absolute Neuts (auto) Absolute Lymphs (auto) Nucleated RBC % Sodium 133 L Potassium 3.5 Chloride 98 Carbon Dioxide 29.0 Anion Gap 6 BUN 16 Creatinine 0.92 Estim Creat Clear Calc 85.96 Est GFR (MDRD) Af Amer 108 Est GFR (MDRD) Non-Af 89 BUN/Creatinine Ratio 17.4 Glucose 138 H Calcium 8.4 L Total Bilirubin AST ALT Alkaline Phosphatase Total Protein Albumin Globulin Albumin/Globulin Ratio Prealbumin 10.7 L Random Vancomycin POC Glucose 148 H Physical Exam Const alert, oriented x3 and no apparent distress HEENT head/scalp atraumatic and moist oral mucous membranes Head and Scalp: normocephalic Eyes PERRL, EOMs intact bilaterally and conjunctivae normal Neck no lymphadenopathy, supple and no JVD Resp normal respiratory effort, no retractions, no use of accessory muscles and clear to auscultation bilaterally Cardio regular rate, regular rhythm, no murmurs and no JVD GI normal to inspection, nondistended, normoactive bowel sounds and soft to palpation Extremity LLE stump wrapped in bandage, with drain in situ Skin no rashes or lesions noted, no wounds and skin turgor normal Neuro CN's II-XII intact bilaterally Psych: alert, normal affect With respect to diabetes, continue Lantus 15 units nightly. Insulin sliding scale. Accu-Cheks AC at bedtime. Currently on IV vancomycin and ertapenem. ID on board. Patient has remained in normal sinus rhythm and EKG showed normal sinus rhythm with PACs. Continue telemetry monitoring for now. Will order 2D echo. Last echo was on file is from 2014 which showed EF of 65% with stage I diastolic dysfunction. On Lovenox for DVT prophylaxis. Rest as per Sarkis Sandoval PA-c's note which I reviewed and endorsed. Visit Charges Inpatient E&M: 29199 Subs Hosp L2
--- NOTE | 2021-04-13 11:50 | CASEMGMT ---
SALMA MCCAULEY assessment: Face to Face with patient for initial transition planning/care coordination assessment. SALMA MCCAULEY introduced self and role at [facility], pt voices understanding and consents to assessment. Pt is lying in bed w/ c/o some pain but falls back to sleep when not stimulated verbally. Pt is A/Ox4 and answers all questions appropriately. Care providers, pharmacy, and demographics verified. Presentation: Pt to OR for BKA Admitting dx: Left BKA PCP: Sol-has not seen recently Specialists: Lashonda, plastics; Elli, podiatry Preferred Pharmacy: [facility] Insurance: [facility] Prescription Benefit: [facility] Living Will/HPOA: Pt states does not have LW/HPOA and declines AD info. LNOK: Alondra Merritt, friend Living Arrangements: Pt states lives alone in 1 story apt with no steps in and states normally no concerns at home. Pt states is normally independent with ADL's. Transportation: Pt states normally drives self and states no transportation concerns. DME/HHC: Pt states has the following DME: cane, w/c, walker, shower chair and walk in shower. Pt states no need for further DME. Pt states has been to [place] in the past and has had [facility] and [facility] in the past. Pt states no concerns with going home at time of discharge. Pt is on disability. Pt states does not smoke or drink ETOH. Pt states no further concerns/needs. CM to follow for PT/OT evals and any further discharge planning/needs. Advised pt to ask for CM if any further questions/concerns/needs arise, voices understanding. Pt Goal: Home but cannot answer how he will care for himself with the amputation. Plan: TBD, pending PT/OT evals. SStaten SALMA MCCAULEY
[2021-04-13 12:21] LABS: Bedside Glucose 129 mg/dL (70-110)
--- NOTE | 2021-04-13 15:09 | NURSING ---
wound photo: left stump
--- NOTE | 2021-04-13 15:10 | NURSING ---
wound photo: left stump
--- NOTE | 2021-04-13 15:12 | NURSING ---
wound photo: left lower leg
--- NOTE | 2021-04-13 15:12 | NURSING ---
wound photo: left foot
--- NOTE | 2021-04-13 15:13 | NURSING ---
wound photo: right lower leg
--- NOTE | 2021-04-13 15:14 | NURSING ---
wound photo: right posterior lower leg
--- NOTE | 2021-04-13 15:15 | NURSING ---
wound photo: right hand
--- NOTE | 2021-04-13 15:15 | NURSING ---
wound photo: right forearm
[2021-04-13 17:21] LABS: Bedside Glucose 141 mg/dL (70-110)
[2021-04-13] MEDS: Juven (unflavored) Packet 1 PACKET PO (18:11)
[2021-04-13] MEDS: Insulin Lispro 100 UNIT/ML INSULN.PEN SC (21:12)
[2021-04-13 21:25] LABS: Bedside Glucose 180 mg/dL (70-110)
[2021-04-14] VITALS (11 sets, daily range): BP systolic 97–116; BP diastolic 54–65; PULSE 69–86; RESP 16–18; TEMP 36.6–36.9; O2SAT 93–97
--- NOTE | 2021-04-14 03:34 | EKG12_ITS ---
Test Reason : DYSRHYTHMIA Blood Pressure : / mmHG Vent. Rate : 111 BPM Atrial Rate : 174 BPM P-R Int : 112 ms QRS Dur : 086 ms QT Int : 374 ms P-R-T Axes : 078 040 073 degrees QTc Int : 508 ms Sinus tachycardia with Blocked Premature atrial complexes Otherwise normal ECG When compared with ECG of 12-APR-2021 08:33, MANUAL COMPARISON REQUIRED, DATA IS UNCONFIRMED Confirmed by GILLIAN KEMP, NISSA ([id number]), international editorial producer HARSHAL MADRIGAL ([id number]) on 04/15/2021 10:10:49 AM Referred By: Mauro Gallego Confirmed By:NISSA FRENCH MD
[2021-04-14 04:06] LABS: Anion Gap 6 (5-15); BUN 16 mg/dL (7-18); BUN/Creat Ratio 19.3 RATIO (10-20); Calcium,Total 8.1 mg/dL (8.5-10.1); Chloride 98 mmol/L (98-107); Creatinine, Serum 0.83 mg/dL (0.70-1.30); EST Glomerular Filtration Rate 100 mL/min (>60); Est Glom Filt Rate - Afr Amer 121 mL/min (>60); Estimated Creatinine Clearance 95.28 ml/min; Glucose 91 mg/dL (74-106); Magnesium 1.8 mg/dL (1.6-2.6); Potassium 3.4 mmol/L (3.5-5.1); Sodium Level 134 mmol/L (136-145)
[2021-04-14] MEDS: oxyCODONE 5 MG Tablet 10 MG PO ×3 (04:08→21:15)
[2021-04-14] MEDS: Potassium Chloride Oral Tablet 20 MEQ 60 MEQ PO (04:08)
[2021-04-14 04:18] LABS: Thyroid Stim Hormone (TSH) 0.91 uIU/mL (0.358-3.74)
[2021-04-14] MEDS: 0.9% Saline Lock 10 ML Syringe IV ×2 (08:24→13:20)
[2021-04-14] MEDS: HYDROmorphone 1 MG/ML Syringe IV ×2 (08:24→13:20)
[2021-04-14] MEDS: Juven (unflavored) Packet 1 PACKET PO ×2 (08:42→17:25)
[2021-04-14 08:56] LABS: Bedside Glucose 86 mg/dL (70-110)
[2021-04-14] MEDS: Potassium Chloride Oral Tablet 20 MEQ 40 MEQ PO (09:57)
[2021-04-14] MEDS: Mupirocin Ointment 22gm Tube 1 APPLIC TOPICAL (09:58)
[2021-04-14] MEDS: Insulin Lispro 100 UNIT/ML INSULN.PEN 8 UNIT SC ×2 (09:58→17:24)
[2021-04-14] MEDS: Metoprolol Tartrate 25 MG Tablet PO (09:59)
[2021-04-14] MEDS: Enoxaparin 40 MG/0.4 ML Syringe SC (09:59)
--- NOTE | 2021-04-14 11:18 | PCM.PN.HOSP ---
Documented by User: Sarkis PRITCHARD 04/14/21 11:25 Subjective Subjective Patient is a 61-year-old male comfortably resting in bed, alert and oriented x3. Denies chest pain, shortness of breath, palpitations, hemoptysis, sputum production, fever, chills, N/V/D. Objective Data Objective Data Vital Signs: Vital Signs Temp Pulse Resp BP Pulse Ox 97.9 F 83 18 115/65 97 04/14/21 08:43 04/14/21 10:48 04/14/21 08:43 04/14/21 08:43 04/14/21 08:43 Oxygen Delivery Method Room Air Weight: 179 lb 14.355 oz Body Mass Index (BMI) 25.8 Intake & Output: Intake and Output for Last 24 Hours 04/12/21 04/13/21 04/14/21 23:59 23:59 23:59 Intake Total 2476.67 / 2676.67 3670 / 4070 1398 / 1398 Output Total 755 / 1105 2157 / 2307 700 / 700 Balance 1721.67 / 1571.67 1513 / 1763 698 / 698 Lab / Micro Data Result Diagrams: 04/13/21 05:52 04/14/21 03:46 Labs: Laboratory Results - last 24 hr 04/13/21 04/13/21 04/13/21 12:16 16:54 21:11 Sodium Potassium Chloride Carbon Dioxide Anion Gap BUN Creatinine Estim Creat Clear Calc Est GFR (MDRD) Af Amer Est GFR (MDRD) Non-Af BUN/Creatinine Ratio Glucose Calcium Magnesium TSH POC Glucose 129 H 141 H 180 H 04/14/21 04/14/21 04/14/21 03:46 03:46 08:11 Sodium 134 L Potassium 3.4 L Chloride 98 Carbon Dioxide 30.0 Anion Gap 6 BUN 16 Creatinine 0.83 Estim Creat Clear Calc 95.28 Est GFR (MDRD) Af Amer 121 Est GFR (MDRD) Non-Af 100 BUN/Creatinine Ratio 19.3 Glucose 91 Calcium 8.1 L Magnesium 1.8 TSH 0.91 POC Glucose 86 Physical Exam Const alert, oriented x3 and no apparent distress HEENT head/scalp atraumatic and moist oral mucous membranes Head and Scalp: normocephalic Eyes PERRL, EOMs intact bilaterally and conjunctivae normal Neck no lymphadenopathy, supple and no JVD Resp normal respiratory effort, no retractions and no use of accessory muscles Cardio regular rate, regular rhythm, no murmurs and no JVD GI normal to inspection, nondistended, normoactive bowel sounds and soft to palpation Extremity normal to inspection Extremity Narrative: Unilateral left below the knee amputation. Skin no rashes or lesions noted and no jaundice Neuro CN's II-XII intact bilaterally Psych affect normal Assessment & Plan Assessment/Plan (1) 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: (2) Diabetes: QUALIFIERS: Diabetes mellitus complication status: with diabetic arthropathy Diabetes mellitus senior living insulin use: with senior living use Diabetes mellitus type: type 2 Qualified Code(s): E11.610 - Type 2 diabetes mellitus with diabetic neuropathic arthropathy; Z79.4 - intermodal customer service (current) use of insulin (3) Bacteremia: (4) Osteomyelitis of ankle and foot: (5) MRSA (methicillin resistant Staphylococcus aureus): (6) Osteomyelitis: QUALIFIERS: Laterality: left Osteomyelitis location: foot Osteomyelitis type: unspecified type Qualified Code(s): M86.9 - Osteomyelitis, unspecified PLAN: Patient is a 61-year-old male who presents to the hospital medicine service on consultation from Dr. 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 1) S/P Left below the knee amputation Vital signs stable and patient is afebrile. Mild leukocytosis at 14,000. Plan; continue ertapenem and vancomycin for 48 hours, discontinue on 04/14/2021, per ID. 2) DM2 POC glucose 193, not within goal. Plan; continue Lantus 50 units SC nightly, continue lispro 8 units SC 3 times daily, Accu-Cheks ordered, SSI ordered. 3) Arrythmia According to surgeon, patient was observed with periods of SVT during surgery. EKG reviewed demonstrated normal sinus rhythm with PACs. Transesophageal echocardiogram from 03/08/2021 demonstrates normal LV systolic function and an estimated EF of 65%. No comment on diastolic dysfunction. Plan; PCU for cardiac telemetry monitoring. 4) Hyponatremia Sodium currently 133. Plan; continue to monitor BMP, lactated Ringer's ordered. 5) hypokalemia Currently 3.4. Plan; oral potassium ordered, continue to monitor BMP. DVT prophylaxis - not indicated Patient seen by Sarkis Sandoval PA-C, under the supervision of Dr. Loyola. Documented by User: Dr. Cecelia Loyola MD 04/14/21 14:22 Objective Data Lab / Micro Data Result Diagrams: 04/13/21 05:52 04/14/21 03:46 Charges/Coding Addendum Addendum: Patient seen by Sarkis Sandoval PA-C under my supervision. Patient seen and examined. He complained of pain as he had chest pain changed in bed. He had no other complaints and review of systems otherwise negative. O/E Physical Exam Const alert, oriented x3 and no apparent distress HEENT head/scalp atraumatic and moist oral mucous membranes Head and Scalp: normocephalic Eyes PERRL, EOMs intact bilaterally and conjunctivae normal Neck no lymphadenopathy, supple and no JVD Resp normal respiratory effort, no retractions, no use of accessory muscles and clear to auscultation bilaterally Cardio regular rate, regular rhythm, no murmurs and no JVD GI normal to inspection, nondistended, normoactive bowel sounds and soft to palpation Extremity LLE stump wrapped in bandage, with drain in situ Skin no rashes or lesions noted, no wounds and skin turgor normal Neuro CN's II-XII intact bilaterally Psych: alert, normal affect Continue IV vancomycin and ertapenem. Continue Lantus. Patient was very tachycardic so started patient on metoprolol 25 mg twice daily. He had a BUCK in February 2021 which showed EF of 65% with normal left ventricular systolic function and mild mitral and tricuspid valve insufficiency with negative bubble study. Continue Lovenox for DVT prophylaxis. PT OT on board. Fall precautions. Multi Select Codes Visit Charges Visit Charges: 21083 Subs Hosp L2
[2021-04-14 11:31] LABS: Bedside Glucose 119 mg/dL (70-110)
--- NOTE | 2021-04-14 14:24 | PN.SURG_ITS ---
Subjective Subjective Postop #2 Patient resting in bed. States pain is controlled with pain meds. Objective Data Objective Data Vital Signs: Vital Signs Temp Pulse Resp BP Pulse Ox 97.9 F 80 18 103/54 L 93 04/14/21 11:19 04/14/21 11:19 04/14/21 11:19 04/14/21 11:19 04/14/21 11:19 Oxygen Delivery Method Room Air Weight: 179 lb 14.355 oz Body Mass Index (BMI) 25.8 Intake & Output: Intake and Output for Last 24 Hours 04/12/21 04/13/21 04/14/21 23:59 23:59 23:59 Intake Total 2476.67 / 2676.67 3670 / 4070 2032 / 2032 Output Total 755 / 1105 2157 / 2307 1555 / 1555 Balance 1721.67 / 1571.67 1513 / 1763 478 / 478 Kam drain output 32 ml. Lab / Micro Data Result Diagrams: 04/13/21 05:52 04/14/21 03:46 Labs: Laboratory Results - last 24 hr 04/13/21 04/13/21 04/14/21 16:54 21:11 03:46 Sodium 134 L Potassium 3.4 L Chloride 98 Carbon Dioxide 30.0 Anion Gap 6 BUN 16 Creatinine 0.83 Estim Creat Clear Calc 95.28 Est GFR (MDRD) Af Amer 121 Est GFR (MDRD) Non-Af 100 BUN/Creatinine Ratio 19.3 Glucose 91 Calcium 8.1 L Magnesium 1.8 TSH POC Glucose 141 H 180 H 04/14/21 04/14/21 04/14/21 03:46 08:11 11:25 Sodium Potassium Chloride Carbon Dioxide Anion Gap BUN Creatinine Estim Creat Clear Calc Est GFR (MDRD) Af Amer Est GFR (MDRD) Non-Af BUN/Creatinine Ratio Glucose Calcium Magnesium TSH 0.91 POC Glucose 86 119 H Physical Exam Const no apparent distress Resp normal respiratory effort Cardio regular rate GI normal to inspection, nondistended, normoactive bowel sounds Extremity Extremity Narrative: Left BKA incision with dressing dry and intact. Kam drain is serosanguineous drainage. Assessment & Plan Assessment/Plan (1) 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: (2) Osteomyelitis of ankle and foot: PLAN: Dressing to be changed daily on left BKA. Place Bactroban ointment to the suture line, cover with gauze and wrap with Kerlix. [place] wrap for compre ssion. Kam drain has had 32 ml of serosanguineous drainage. Pain is controlled with both oral and IV pain meds. Receiving Vancomycin antibiotics. Will start physical therapy for evaluation with transfers and mobility. He may need placement until he is able to safely care for himself at home. On discharge he will follow up at the wound care center.
[2021-04-14 17:21] LABS: Bedside Glucose 113 mg/dL (70-110)
[2021-04-14] MEDS: Lactated Ringers 1,000 ML 60 ML IV (19:44)
[2021-04-14] MEDS: Insulin Lispro 100 UNIT/ML INSULN.PEN SC (21:07)
[2021-04-14 21:26] LABS: Bedside Glucose 209 mg/dL (70-110)
[2021-04-15] VITALS (10 sets, daily range): BP systolic 107–140; BP diastolic 56–71; PULSE 70–87; RESP 16–18; TEMP 36.2–36.7; O2SAT 95–99; BMI 25.8
[2021-04-15] MEDS: oxyCODONE 5 MG Tablet 10 MG PO ×3 (02:09→22:43)
[2021-04-15] MEDS: Insulin Lispro 100 UNIT/ML INSULN.PEN 8 UNIT SC ×2 (07:41→11:13)
[2021-04-15] MEDS: Potassium Chloride Oral Tablet 20 MEQ 40 MEQ PO (07:41)
[2021-04-15] MEDS: HYDROmorphone 1 MG/ML Syringe IV ×3 (07:41→20:54)
[2021-04-15] MEDS: Juven (unflavored) Packet 1 PACKET PO (07:41)
[2021-04-15] MEDS: Insulin Lispro 100 UNIT/ML INSULN.PEN SC ×2 (07:42→11:13)
[2021-04-15 07:50] LABS: Bedside Glucose 213 mg/dL (70-110)
[2021-04-15] MEDS: Mupirocin Ointment 22gm Tube 1 APPLIC TOPICAL (08:06)
--- NOTE | 2021-04-15 09:31 | PCM.PN.HOSP ---
Documented by User: DARYN Moncada 04/15/21 09:44 Subjective Subjective Patient seen and examined. Sitting in bed eating breakfast no distress noted. Patient denies fever, chills, shortness of breath, nausea, vomiting. Patient states pain is currently 6 out of 10 and that the nurse just gave him a dose of Dilaudid for pain. Objective Data Objective Data Vital Signs: Vital Signs Temp Pulse Resp BP Pulse Ox 97.2 F L 73 18 107/56 L 95 04/15/21 09:28 04/15/21 09:28 04/15/21 09:28 04/15/21 09:28 04/15/21 09:28 Oxygen Delivery Method Room Air Weight: 179 lb 14.355 oz Body Mass Index (BMI) 25.8 Intake & Output: Intake and Output for Last 24 Hours 04/13/21 04/14/21 04/15/21 23:59 23:59 23:59 Intake Total 3670 / 4070 2867 / 2867 400 / 400 Output Total 2157 / 2307 2610 / 2610 1000 / 1000 Balance 1513 / 1763 257 / 257 -600 / -600 Lab / Micro Data Result Diagrams: 04/13/21 05:52 04/14/21 03:46 Labs: Laboratory Results - last 24 hr 04/14/21 04/14/21 04/14/21 11:25 17:07 21:05 POC Glucose 119 H 113 H 209 H 04/15/21 07:28 POC Glucose 213 H Physical Exam Const alert and oriented x3 General Appearance: cooperative and comfortable HEENT normocephalic and head/scalp atraumatic Eyes PERRL and EOMs intact bilaterally Neck full ROM, no lymphadenopathy, supple, no JVD and thyroid normal Lymph Lymphatic: no lymphadenopathy noted Resp normal respiratory effort, normal air movement and clear to auscultation bilaterally Cardio regular rate, regular rhythm, S1 normal heart sound and S2 normal heart sound GI normal to inspection, nondistended, normoactive bowel sounds, soft to palpation and non-tender Extremity normal to inspection, full ROM and normal capillary refill Skin no rashes or lesions noted, no wounds and skin turgor normal Wounds: amputation no odor and sutures Neuro oriented x3 and CN's II-XII intact bilaterally Psych mental status grossly normal, thought process normal, cooperative and affect normal Assessment & Plan Assessment/Plan (1) MRSA (methicillin resistant Staphylococcus aureus): (2) Amputation of left lower extremity below knee: PLAN: 1) S/P Left below the knee amputation Vital signs stable and patient is afebrile. Continue ertapenem, vancomycin discontinued yesterday 2) DM2 continue Lantus 50 units SC nightly continue lispro 8 units SC 3 times daily Accu-Cheks ordered, SSI ordered. 3) Arrythmia PCU for cardiac telemetry monitoring. EKG NSR with PVC's 4) Hyponatremia lactated Ringer's ordered. BMP ordered for today 5) hypokalemia K 3.4 yesterday, received replacement BMP ordered for today DVT prophylaxis - not indicated Patient seen by Nandini Meadows NP, under the supervision of Dr. Loyola. Documented by User: Dr. Cecelia Loyola MD 04/15/21 11:19 Objective Data Lab / Micro Data Result Diagrams: 04/13/21 05:52 04/14/21 03:46 Charges/Coding Addendum Addendum: Patient seen and examined. He feels well and has no complaints. He had an uneventful night. Patient states he did not take the metoprolol that was started yesterday for tachycardia because his blood pressure was low. He states his blood pressure usually runs in the low 100 systolic so he is not comfortable taking the beta-mariann and would want to stay off of it. Review of systems otherwise negative. O/E: Physical Exam Const alert, oriented x3 and no apparent distress HEENT head/scalp atraumatic and moist oral mucous membranes Head and Scalp: normocephalic Eyes PERRL, EOMs intact bilaterally and conjunctivae normal Neck no lymphadenopathy, supple and no JVD Resp normal respiratory effort, no retractions, no use of accessory muscles and clear to auscultation bilaterally Cardio regular rate, regular rhythm, no murmurs and no JVD GI normal to inspection, nondistended, normoactive bowel sounds and soft to palpation Extremity LLE stump wrapped in bandage, with drain in situ Skin no rashes or lesions noted, no wounds and skin turgor normal Neuro CN's II-XII intact bilaterally Psych: alert, normal affect Plan is to hold metoprolol as patient doesnt want to take it. Continue ertapenem as per primary team. vancomycin discontinued as per primary team. On lovenox for DVT prophylaxis. PT/OT on board. Fall precautions. Rest as per primary team plastic surgery. Visit Charges Inpatient E&M: 55986 Subs Hosp L2
[2021-04-15] MEDS: Enoxaparin 40 MG/0.4 ML Syringe SC (09:34)
[2021-04-15] MEDS: Lactated Ringers 1,000 ML 60 ML IV (09:35)
[2021-04-15 11:20] LABS: Bedside Glucose 171 mg/dL (70-110)
[2021-04-15 11:29] LABS: Anion Gap 7 (5-15); BUN 14 mg/dL (7-18); BUN/Creat Ratio 15.5 RATIO (10-20); Chloride 99 mmol/L (98-107); EST Glomerular Filtration Rate 90 mL/min (>60); Est Glom Filt Rate - Afr Amer 109 mL/min (>60); Estimated Creatinine Clearance 87.87 ml/min; Glucose 175 mg/dL (74-106); Potassium 4.2 mmol/L (3.5-5.1); Sodium Level 134 mmol/L (136-145)
--- NOTE | 2021-04-15 13:09 | PN.SURG_ITS ---
Subjective Subjective Postop #3 Patient resting in bed. Patient states he is able to get up to chair with assistance. Objective Data Objective Data Vital Signs: Vital Signs Temp Pulse Resp BP Pulse Ox 97.7 F L 82 18 135/71 H 98 04/15/21 15:06 04/15/21 15:06 04/15/21 15:06 04/15/21 15:06 04/15/21 15:06 Oxygen Delivery Method Room Air Weight: 179 lb 14.355 oz Body Mass Index (BMI) 25.8 Intake & Output: Intake and Output for Last 24 Hours 04/13/21 04/14/21 04/15/21 23:59 23:59 23:59 Intake Total 3670 / 4070 2867 / 2867 1691 / 1691 Output Total 2157 / 2307 2610 / 2610 1660 / 1660 Balance 1513 / 1763 257 / 257 31 / 31 Kam drain 10 ml. Lab / Micro Data Result Diagrams: 04/13/21 05:52 04/15/21 10:09 Labs: Laboratory Results - last 24 hr 04/14/21 04/14/21 04/15/21 17:07 21:05 07:28 Sodium Potassium Chloride Carbon Dioxide Anion Gap BUN Creatinine Estim Creat Clear Calc Est GFR (MDRD) Af Amer Est GFR (MDRD) Non-Af BUN/Creatinine Ratio Glucose Calcium POC Glucose 113 H 209 H 213 H 04/15/21 04/15/21 04/15/21 10:09 11:12 16:20 Sodium 134 L Potassium 4.2 Chloride 99 Carbon Dioxide 28.0 Anion Gap 7 BUN 14 Creatinine 0.90 Estim Creat Clear Calc 87.87 Est GFR (MDRD) Af Amer 109 Est GFR (MDRD) Non-Af 90 BUN/Creatinine Ratio 15.5 Glucose 175 H Calcium 8.0 L POC Glucose 171 H 221 H Physical Exam Const alert and oriented x3 General Appearance: comfortable Orientation / Consciousness: awake HEENT normocephalic Eyes PERRL Neck full ROM Resp normal respiratory effort Cardio regular rate Skin Wound Narrative: Left BKA stump incision dry and intact. Sutures dry and intact. Kam drain, draining serosanguineous drainage. 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 Place Bactroban ointment to the suture line, cover with gauze and wrap with Kerlix. [place] wrap for compression. Akm drain has had 10 ml of serosanguineous drainage. Pain is controlled with both oral and IV pain meds. Receiving Ertapenem antibiotics. K+ 3.4- replaced and managed by medicine. Has started physical therapy for evaluation with transfers and mobility. Patient is not independent with his therapy. He is insisting on going home and is refusing to be placed for further therapy. He states he has friends and family helping him. Will consider discharge tomorrow. On discharge he will follow up at the wound care center.
[2021-04-15] MEDS: 0.9% Saline Lock 10 ML Syringe IV ×2 (15:09→16:25)
[2021-04-15] MEDS: Ondansetron 4 MG/2 ML Vial IV (16:24)
[2021-04-15 16:40] LABS: Bedside Glucose 221 mg/dL (70-110)
--- NOTE | 2021-04-15 21:05 | NURSING ---
Pt requested medications early because he wants to sleep.
[2021-04-15 21:06] LABS: Bedside Glucose 177 mg/dL (70-110)
[2021-04-16] MEDS: Lactated Ringers 1,000 ML 60 ML IV ×2 (01:37→16:14)
[2021-04-16] MEDS: HYDROmorphone 1 MG/ML Syringe IV ×3 (01:37→15:17)
[2021-04-16 03:00] VITALS: BP 98/64; PULSE 78; RESP 16; TEMP 36.3; O2SAT 95
[2021-04-16 06:05] VITALS: BP 106/54; PULSE 71; RESP 16; TEMP 36.5; O2SAT 97
[2021-04-16 06:35] VITALS: PULSE 72
[2021-04-16 08:01] LABS: Bedside Glucose 173 mg/dL (70-110)
[2021-04-16] MEDS: Potassium Chloride Oral Tablet 20 MEQ 40 MEQ PO (08:08)
[2021-04-16] MEDS: Insulin Lispro 100 UNIT/ML INSULN.PEN 8 UNIT SC ×3 (08:08→16:48)
[2021-04-16] MEDS: Insulin Lispro 100 UNIT/ML INSULN.PEN SC (08:09)
[2021-04-16] MEDS: 0.9% Saline Lock 10 ML Syringe IV ×2 (08:10→15:17)
--- NOTE | 2021-04-16 09:37 | PN.HOSP_ITS ---
Documented by User: ADRYAN MoncadaC 04/16/21 09:52 Subjective Subjective Patient seen and examined. Patient states that his current pain is a 5 out of 10 and this is tolerable for him. Discussed with patient possibility of going home per plastics note. Patient states he is ready to go home and does not want to go to a nursing facility. Objective Data Objective Data Vital Signs: Vital Signs Temp Pulse Resp BP Pulse Ox 97.7 F L 72 16 106/54 L 97 04/16/21 06:05 04/16/21 06:35 04/16/21 06:05 04/16/21 06:05 04/16/21 06:05 Oxygen Delivery Method Room Air Weight: 179 lb 14.355 oz Body Mass Index (BMI) 25.8 Intake & Output: Intake and Output for Last 24 Hours 04/14/21 04/15/21 04/16/21 23:59 23:59 23:59 Intake Total 2867 / 2867 2091 / 2211 1180 / 1180 Output Total 2610 / 2610 2560 / 3710 1600 / 1600 Balance 257 / 257 -469 / -1499 -420 / -420 Lab / Micro Data Result Diagrams: 04/13/21 05:52 04/16/21 10:26 Labs: Laboratory Results - last 24 hr 04/15/21 04/15/21 04/15/21 10:09 11:12 16:20 Sodium 134 L Potassium 4.2 Chloride 99 Carbon Dioxide 28.0 Anion Gap 7 BUN 14 Creatinine 0.90 Estim Creat Clear Calc 87.87 Est GFR (MDRD) Af Amer 109 Est GFR (MDRD) Non-Af 90 BUN/Creatinine Ratio 15.5 Glucose 175 H Calcium 8.0 L POC Glucose 171 H 221 H 04/15/21 04/16/21 20:52 07:47 Sodium Potassium Chloride Carbon Dioxide Anion Gap BUN Creatinine Estim Creat Clear Calc Est GFR (MDRD) Af Amer Est GFR (MDRD) Non-Af BUN/Creatinine Ratio Glucose Calcium POC Glucose 177 H 173 H Physical Exam Const alert, oriented x3 and no apparent distress HEENT normocephalic and head/scalp atraumatic Eyes conjunctivae normal and no scleral icterus Neck full ROM, supple and no JVD General: trachea midline Resp normal respiratory effort, normal air movement, no use of accessory muscles and clear to auscultation bilaterally Cardio regular rate, regular rhythm, S1 normal heart sound and S2 normal heart sound GI normal to inspection, nondistended, normoactive bowel sounds, soft to palpation and non-tender Extremity normal to inspection, full ROM and normal capillary refill Peripheral Pulses: Yes pulses 2+ throughout Skin no rashes or lesions noted Wounds: amputation no odor and sutures Neuro oriented x3, moves all extremities and no focal motor deficits Psych mental status grossly normal, thought process normal, cooperative, affect normal and speech normal Assessment & Plan Assessment/Plan (1) Amputation of left lower extremity below knee: (2) Type 2 diabetes mellitus with diabetic polyneuropathy: 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 -Ertapenem DC'd per ID recommendation 2) DM2 -continue Lantus 50 units SC nightly -continue lispro 8 units SC 3 times daily -Accu-Cheks ordered, SSI ordered. -Would continue current insulin regimen upon discharge for tight control of diabetes 3) Hyponatremia -Currently 134 -Patient baseline 133-139 -Will check BMP 4) hypokalemia -Potassium yesterday 4.2 -EKG normal sinus rhythm no arrhythmias noted From hospital medicine standpoint patient is stable and ready for discharge. Patient's blood sugars are currently well controlled with current regimen and patient is no longer on antibiotic therapy. Patient's potassium has corrected as well. DVT prophylaxis -subcu Lovenox Patient seen by Nandini Meadows NP, under the supervision of Dr. Loyola. Documented by User: Dr. Cecelia Loyola MD 04/16/21 14:30 Objective Data Lab / Micro Data Result Diagrams: 04/13/21 05:52 04/16/21 10:26 Charges/Coding Addendum Addendum: Patient seen and examined. He has no complaints and had an uneventful night. Review of systems is otherwise negative. Pain is well controlled. O/E: Physical Exam Const alert, oriented x3 and no apparent distress HEENT head/scalp atraumatic and moist oral mucous membranes Head and Scalp: normocephalic Eyes PERRL, EOMs intact bilaterally and conjunctivae normal Neck no lymphadenopathy, supple and no JVD Resp normal respiratory effort, no retractions, no use of accessory muscles and clear to auscultation bilaterally Cardio regular rate, regular rhythm, no murmurs and no JVD GI normal to inspection, nondistended, normoactive bowel sounds and soft to palpation Extremity LLE stump wrapped in bandage, with drain in situ Skin no rashes or lesions noted, no wounds and skin turgor normal Neuro CN's II-XII intact bilaterally Psych: alert, normal affect Patient still on ertapenem. Blood cultures are negative. Continue Lantus 15 units daily for diabetes. Insulin sliding scale. Accu-Cheks AC at bedtime. PT/OT on board. Fall precautions. Patient advised about possible placement, but he is adamant he wants to go home. Case management on board. On lovenox for DVT prophylaxis. Visit Charges Inpatient E&M: 51856 Subs Hosp L2
[2021-04-16 10:07] VITALS: BP 127/65; PULSE 71; RESP 16; TEMP 36.3; O2SAT 95
[2021-04-16] MEDS: Juven (unflavored) Packet 1 PACKET PO (10:09)
[2021-04-16] MEDS: Enoxaparin 40 MG/0.4 ML Syringe SC (10:13)
[2021-04-16 10:53] LABS: Anion Gap 6 (5-15); BUN 13 mg/dL (7-18); BUN/Creat Ratio 17.2 RATIO (10-20); Calcium,Total 8.6 mg/dL (8.5-10.1); Chloride 100 mmol/L (98-107); Creatinine, Serum 0.76 mg/dL (0.70-1.30); EST Glomerular Filtration Rate 111 mL/min (>60); Est Glom Filt Rate - Afr Amer 135 mL/min (>60); Estimated Creatinine Clearance 104.06 ml/min; Glucose 148 mg/dL (74-106); Potassium 4.4 mmol/L (3.5-5.1); Sodium Level 134 mmol/L (136-145)
[2021-04-16 11:31] LABS: Bedside Glucose 128 mg/dL (70-110)
--- NOTE | 2021-04-16 12:17 | CASEMGMT ---
Pt is still needing min assist of 2 for therapy but pt is insistent on going home with HHC. Pt absolutely refuses SNF/rehab, even after this RN CM went over therapy notes/safety concerns. Pt states 'I will be fine and I will be safe.' Pt aware that [facility] not [facility] and states no preference for any further HHC and declines HH list. Referral faxed to [facility] as pt has had them in the past but they called this RN GARRICK and states they do not have any nursing coverage in the [facility]. Referral then faxed to [facility] and they states they can accept pt for SN, PT/OT. D/C summ/instructions to be faxed once obtained. Pt updated, voices understanding. Pt declines any further resources at this time. Pt states does have friends that can help, if needed. SStaten SALMA MCCAULEY
[2021-04-16 14:53] VITALS: PULSE 70
[2021-04-16 15:13] VITALS: BP 125/63; PULSE 71; RESP 16; TEMP 37; O2SAT 95
--- NOTE | 2021-04-16 15:42 | DCINST_ITS ---
Discharge Instructions Diet Discharge Diet: Carb Control Diet and - (encourage nutritional supplementation with protein to help the healing process.) Activity Discharge Activity: May Not Drive and May Not Shower (until the drain is removed.) May shower in (days): 14 (after the drain is removed.) May resume sexual activity in: 4-6 weeks Weight Bearing Status: Weight bearing as tolerated Lifting Restrictions: right foot only Keep extremity elevated above heart level: Left Leg (BKA stump) Dressing / Incision Call your doctor if your incision/area has: Continuous Slow Oozing, Sudden Increased Bleeding, Increased Pain/ Swelling, Foul Smelling Discharge and Swelling at the incision site Call your doctor if you observe: Fever of 101 or Higher, Coldness, Increased Pain, Shortness of breath, Chest pain, Calf discomfort and Uncontrolled pain Suture Line Care: - (apply antibiotic ointment to suture line daily.) Change Dressing in: 2 days (Home Health to assist with left BKA stump dressing changes with antibiotic ointment to suture line followed by gauze, and Kerlix gauze and followed by a compression félix wrap.) Cleanse incision/area with: - (may get the incision wet in the shower after the drain is removed.) Drain: Suction (óscar drain to bulb suction. empty and record output daily.) Follow Up Care Please Follow Up With: wound center When: one week. call [phone] for appt. If possible, see Dr. Calloway on Monday. Test Results: Test results from this visit will be discussed in further detail at your follow-up appointment, if applicable. Discharge Plan Admission Admit Date/Time: 04/12/21 14:05 Primary Reason for Your Visit: left BKA surgery. Attending Provider: Cecelia Loyola Primary Care Provider: Care Physician,No Primary Consulting Providers: David Hudson Discharge Orders/Prescriptions Prescriptions: New doxycycline hyclate 100 mg capsule 100 mg PO BID Qty: 30 RF: 0 oxycodone-acetaminophen [Percocet] 5-325 mg tablet 1 tab PO Q4H PRN (Reason: pain (scale score 7-10)) 7 Days Qty: 40 RF: 0 diazepam [Valium] 5 mg tablet 5 mg PO TID PRN (Reason: spasms) Qty: 20 RF: 0 gabapentin [Neurontin] 300 mg capsule 300 mg PO BID Qty: 60 RF: 3 mupirocin 2 % ointment 1 applic topical DAILY Qty: 22 RF: 3 (DME) gauze bandage 3 X 3 bandage See Rx Instructions .ROUTE .MEDSUPPLY Qty: 100 RF: 1 (DME) Kerlix 4 1/2 X 147 bandage See Rx Instructions .ROUTE .MEDSUPPLY Qty: 30 RF: 1 Continued insulin lispro [Humalog KwikPen Insulin] 100 unit/mL insulin pen 8 unit SUBCUT TIDCM RF: 0 Lantus Solostar U-100 Insulin 100 unit/mL (3 mL) insulin pen 50 unit SC QHS RF: 0 Discontinued vancomycin in 0.9 % sodium chl 1.5 gram/500 mL solution 1.5 g IV Q12H 40 Days Qty: 80 RF: 0 ertapenem [Invanz] 1 gram recon soln 1 g IV Q24H RF: 0 No Action (DME) lancets [OneTouch UltraSoft Lancets] Misc See Rx Instructions .ROUTE .MEDSUPPLY Qty: 200 RF: 3 (DME) pen needle, diabetic [Comfort EZ Pen Mckittrick] 31 gauge x 3/16 needle See Rx Instructions .ROUTE .MEDSUPPLY Qty: 100 RF: 3 (DME) OneTouch Ultra Blue Test Strip Strip See Rx Instructions .ROUTE .MEDSUPPLY Qty: 200 RF: 3 Referrals / Follow Up: Care Physician,No Primary [Primary Care Provider] - Disposition Disposition (needs filled in before D/C Order can be placed): Home Health Service
[2021-04-16] MEDS: Mupirocin Ointment 22gm Tube 1 APPLIC TOPICAL (16:12)
[2021-04-16 16:41] LABS: Bedside Glucose 108 mg/dL (70-110)
--- NOTE | 2021-04-19 16:13 | PCM.DC.SUM ---
Providers Date of Admission: 04/12/21 Date of Discharge: 04/16/21 Primary Care Physician: No Primary Care Phys Attending Physician: Dr. Gallego. Consultations 04/12/21 14:14 Hospitalist Group - Dr. Hudson and Dr. Loyola. 04/13/21 09:56 Onc/Wound/category development manager Routine Reason For Visit: LT AMPUTATION BELOW KNEE Diagnosis Discharge Diagnosis (1) MRSA (methicillin resistant Staphylococcus aureus): Status: Acute Code(s): A49.02 - Methicillin resistant Staphylococcus aureus infection, unspecified site (2) 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: Status: Chronic Code(s): E11.621 - Type 2 diabetes mellitus with foot ulcer; L97.529 - Non-pressure chronic ulcer of other part of left foot with unspecified severity (3) Osteomyelitis of ankle and foot: Status: Chronic Code(s): M86.9 - Osteomyelitis, unspecified (4) MRSA cellulitis of left foot: Status: Acute Code(s): L03.116 - Cellulitis of left lower limb; B95.62 - Methicillin resistant Staphylococcus aureus infection as the cause of diseases classified elsewhere (5) Bacteremia: Status: Acute Code(s): R78.81 - Bacteremia (6) Diabetes: Status: Chronic Code(s): E11.9 - Type 2 diabetes mellitus without complications Qualifiers: Diabetes mellitus complication status: with diabetic arthropathy Diabetes mellitus penitentiary insulin use: with penitentiary use Diabetes mellitus type: type 2 Qualified Code(s): E11.610 - Type 2 diabetes mellitus with diabetic neuropathic arthropathy; Z79.4 - bed bug exterminator (current) use of insulin Medications at Discharge Home Medications blood sugar diagnostic #200 each 01/28/21 lancets #200 each 02/03/21 pen needle, diabetic 31 gauge x 3/16 #100 each 02/03/21 insulin lispro [Humalog KwikPen Insulin] 8 unit SUBCUT TIDCM 03/05/21 Lantus Solostar U-100 Insulin 50 unit SC QHS 04/05/21 diazepam [Valium] 5 mg PO TID PRN #20 tab 04/16/21 doxycycline hyclate 100 mg PO BID #30 cap 04/16/21 gabapentin [Neurontin] 300 mg PO BID #60 cap 04/16/21 gauze bandage #100 ea 04/16/21 gauze bandage [Kerlix] #30 ea 04/16/21 mupirocin 1 applic TOPICAL DAILY #22 g 04/16/21 oxycodone-acetaminophen [Percocet] 1 tab PO Q4H PRN 7 Days #40 tab 04/16/21 Hospital Course Operations - (04/12/21 - Left below knee amputation.) Procedures None Summary of Care Provided Minutes Spent on Discharge: 35 Hospital Course: 61 M who was recently admitted for a nonhealing infected MRSA diabetic ulcer left heel with associated osteomyelitis. Cultures showed MRSA, Morganella morganii, and Proteus mirabilis. He is currently on Vancomycin and Zosyn. He also has MRSA bacteremia as well. He had been going to the Wound Center. He was recently placed on Bactrim. He was undergoing HBO treatments and wound care was done with the [facility]. He states he had fever at home prior to admission. He had an x-ray done on 03/03/21 which showed no osteomyelitis and MRI was recommended. He needed IV antibiotics back in November,. MRI was done on 03/05/21. It showed Mild to moderate osteomyelitis on the plantar aspect of the posterior process of the calcaneus. Large soft tissue heel ulcer/wound. He had vascular studies which showed triphasic PT and DP pulses bilateral. His right NADIA is 1.12 and left 1.16. His toe brachial index is 1.12 on the right and 1.34 on the left. There is no significant segmental pressure drop and therefore no arterial occlusive lesion is suspected. WBC was 10.9 upon admission. Today it is 8.1. Lactate was 1.0. ESR was 50. CRP was 93.70. Prealbumin was 11.0. HgbA1c from 03/06/21 was 7.3. Amputation was discussed with the patient. He expressed interest because he is tired of dealing with this complex infected diabetic ulcer. He is also concerned about the recent MRSA in his blood. I was asked to evaluate this patient for surgical options for treatment. On 04/12/21, the patient was taken to the operating room and underwent a left below knee amputation. He tolerated the procedure well. Hospitalist Group was consulted for medical management. He had been on IV antibiotics (Vancomycin and Ertapenem) under the direction of Infectious Diseases and continued them until 04/14/21. Prealbumin from 04/13/21 was 10.7. Encouraged nutritional supplementation with protein to help the healing process. Pathology of amputated leg showed acute and chronic osteomyelitis. He was afebrile during his hospital stay. His drainage ranged from 35 ml initially and it decreased to 10 ml at discharge. Will remove the drain and the sutures at the Wound Center. He didn't qualify for in house Rehab. Home Health was arranged and he was discharged home in satisfactory condition on the 4th postoperative day. He stated he has someone that can help him at home as he was not interested in going to an ECF temporarily. Wrote script for Doxycycline until the drain is removed (30 tabs). Wrote scripts for Percocet for pain (40 tabs) and for Valium for spasm (20 tabs). Wrote script for Neurontin for burning nerve pain (60 tabs) and 3 refills. Discharged home in satisfactory condition on 04/16/21 (4th postoperative day). Followup Wound Center one week. Physical Exam Narrative Left BKA stump incision is dry and intact. Mild swelling present. No evidence of skin vascular compromise. Medical Records Data Attestation: I reviewed the patient's medical records Weight / BMI Weight Weight: 179 lb 14.355 oz Body Mass Index (BMI) 25.8 ABG / Lab / Microbiology Data Result Diagrams: 04/13/21 05:52 04/16/21 10:26 D/C Instructions Discharge Diet: Carb Control Diet and - (encourage nutritional supplementation with protein to help the healing process.) May shower in (days): 14 (after the drain is removed.) May resume sexual activity in: 4-6 weeks Weight Bearing Status: Weight bearing as tolerated Keep extremity elevated above heart level: Left Leg (BKA stump) Call your doctor if your incision/area has: Continuous Slow Oozing, Sudden Increased Bleeding, Increased Pain/ Swelling, Foul Smelling Discharge and Swelling at the incision site Call your doctor if you observe: Fever of 101 or Higher, Coldness, Increased Pain, Shortness of breath, Chest pain, Calf discomfort and Uncontrolled pain Suture Line Care: - (apply antibiotic ointment to suture line daily.) Cleanse incision/area with: - (may get the incision wet in the shower after the drain is removed.) Drain: Suction (óscar drain to bulb suction. empty and record output daily.) Please Follow Up With: wound center When: one week. call [phone] for appt. If possible, see Dr. Calloway on Monday. Meaningful Use Info Meaningful Use Diagnoses (Choose all that apply): None applicable Discharge Plan Admission Admit Date/Time: 04/12/21 14:05 Primary Reason for Your Visit: left BKA surgery. Attending Provider: Cecelia Loyola Primary Care Provider: Care Physician,No Primary Consulting Providers: David Hudson Discharge Orders/Prescriptions Prescriptions: New doxycycline hyclate 100 mg capsule 100 mg PO BID Qty: 30 RF: 0 oxycodone-acetaminophen [Percocet] 5-325 mg tablet 1 tab PO Q4H PRN (Reason: pain (scale score 7-10)) 7 Days Qty: 40 RF: 0 diazepam [Valium] 5 mg tablet 5 mg PO TID PRN (Reason: spasms) Qty: 20 RF: 0 gabapentin [Neurontin] 300 mg capsule 300 mg PO BID Qty: 60 RF: 3 mupirocin 2 % ointment 1 applic topical DAILY Qty: 22 RF: 3 (DME) gauze bandage 3 X 3 bandage See Rx Instructions .ROUTE .MEDSUPPLY Qty: 100 RF: 1 (DME) Kerlix 4 1/2 X 147 bandage See Rx Instructions .ROUTE .MEDSUPPLY Qty: 30 RF: 1 Continued insulin lispro [Humalog KwikPen Insulin] 100 unit/mL insulin pen 8 unit SUBCUT TIDCM RF: 0 Lantus Solostar U-100 Insulin 100 unit/mL (3 mL) insulin pen 50 unit SC QHS RF: 0 Discontinued vancomycin in 0.9 % sodium chl 1.5 gram/500 mL solution 1.5 g IV Q12H 40 Days Qty: 80 RF: 0 ertapenem [Invanz] 1 gram recon soln 1 g IV Q24H RF: 0 No Action (DME) lancets [OneTouch UltraSoft Lancets] Misc See Rx Instructions .ROUTE .MEDSUPPLY Qty: 200 RF: 3 (DME) pen needle, diabetic [Comfort EZ Pen [place]] 31 gauge x 3/16 needle See Rx Instructions .ROUTE .MEDSUPPLY Qty: 100 RF: 3 (DME) OneTouch Ultra Blue Test Strip Strip See Rx Instructions .ROUTE .MEDSUPPLY Qty: 200 RF: 3 Referrals / Follow Up: Care Physician,No Primary [Primary Care Provider] - Disposition Disposition (needs filled in before D/C Order can be placed): Home Health Service
== END 2021-04-16 19:11 | disposition home health service (06) | DRG 305 ==
LOC: PCU 04-13 06:39
PROVIDERS: Hospitalist; Nurse Practitioner Family; Admitting Provider Surgery; Referring Provider Surgery; Visit Provider Student in an Organized Health Care Education/Training Program
PROC: 0Y6J0Z1 Detachment at Left Lower Leg, High, Open Approach (ICD-10-PCS; principal; 2021-04-12 08:45)
DX: E11.69 Type 2 diabetes mellitus with other specified complication (principal); M86.172 Other acute osteomyelitis, left ankle and foot; M86.672 Other chronic osteomyelitis, left ankle and foot; E11.621 Type 2 diabetes mellitus with foot ulcer; L97.423 Non-pressure chronic ulcer of left heel and midfoot with necrosis of muscle; L03.116 Cellulitis of left lower limb; B95.62 Methicillin resistant Staphylococcus aureus infection as the cause of diseases classified elsewhere; R78.81 Bacteremia; E11.610 Type 2 diabetes mellitus with diabetic neuropathic arthropathy; I47.1 Supraventricular tachycardia; E11.42 Type 2 diabetes mellitus with diabetic polyneuropathy; E87.1 Hypo-osmolality and hyponatremia; E87.6 Hypokalemia; J44.9 Chronic obstructive pulmonary disease, unspecified; M06.9 Rheumatoid arthritis, unspecified; F32.9 Major depressive disorder, single episode, unspecified; Z79.4 Long term (current) use of insulin; Z79.899 Other long term (current) drug therapy; Z86.711 Personal history of pulmonary embolism; I25.2 Old myocardial infarction; Z87.891 Personal history of nicotine dependence; Z91.14 Patient's other noncompliance with medication regimen
CPT/HCPCS: 36415; 80048; 80053; 80202; 82962; 83735; 84134; 84443; 85025; 85027; 88305; 88307; 88311; 93005; 97110; 97163; 97167; 97530; 97535; 97802; 99251; J7050; J7120; A4216; G0463; J2405

== ENCOUNTER 2021-04-21 14:20 | Outpatient (RCR) | payer MEDICAID, SELFPAY ==
[2021-04-12 08:01] VITALS: BMI 25.8
[2021-04-21 14:39] VITALS: BP 160/80; PULSE 108; RESP 16; TEMP 37.4; BMI 25.8
--- NOTE | 2021-04-21 15:20 | PN.PCM_ITS ---
History of Present Illness Date of Service: 04/21/21 Chief Complaint: Diabetic, left heel ulcer with osteomyelitis History of Wound: This 60-year-old uncontrolled diabetic follows up today for chronic left heel wound. He was previously medically and surgically treated for osteomyelitis with several rounds of reoccurrence. His left below-knee amputation performed on 04/12/[address] Gallego. He is doing well and his drain is in place. He is seen today as a courtesy visit. He has been trying to elevate and has maintained nonweightbearing status. He denies fever, chill, nausea, vomiting, shortness of breath, chest pain, stomach pain, contralateral limb calf pain. He relates he is satisfied that he had the amputation performed. He was seen by ID today. Progress of Wound: amputation site appears stable and healthy Objective Data Objective Data Vital Signs: Vital Signs Temp Pulse Resp BP 99.3 F H 108 H 16 160/80 H 04/21/21 14:39 04/21/21 14:39 04/21/21 14:39 04/21/21 14:39 Oxygen Delivery Method Room Air Body Mass Index (BMI) 25.8 Physical Exam Const alert and oriented x3 General Appearance: cooperative HEENT normocephalic Extremity Extremity Narrative: No calf tenderness, right or stump palpation pain, left Left below-knee amputation stump is balanced without any evidence of tension, hematoma formation, or infection Compartments remain soft to palpate to left remaining lower limb and thigh Below-knee amputation stump site is rectus Muscle wasting noted General Extremity: edema and no tenderness to palpation of joints or extremities; Negative for cyanosis Skin Skin Narrative: no purulence, no streaking, no odor, no infection Sutures are intact without gapping, necrosis, or disruption JASE drain is in place with minimal hematogenous drainage only General Skin Exam: Negative for erythema Neuro Neuro Narrative: lack of normal epicritic sensation via light touch is consistent with neuropathy status Psych cooperative and affect normal Debridement Note Debridement Note Post-Debridement Measurements and Additional Note: Post-Debridement Measurements/Treatment - Nurse 1 - General Ulcer Assessment Start: 04/21/21 14:39 Freq: Status: Active Protocol: SAVAGE Activity Type Activity Date Activity User E-Sign Co-Sign Detail Recorded Client Recorded Date Recorded By Document 04/21/21 14:39 [facility] Desktop 04/21/21 14:47 [facility] 04/21/21 14:39 - Today's Visit Information Type of service Follow-up Visit (Physician/ALTERATIONS SUPERVISOR ) Arrival Mode Wheelchair Transfer Assistance Other Transfer Assist (Other) stand by Patient Identification Verified (Name & Yes ) Patient Requires Transmission-Based No Precautions Finger Stick Blood Sugar(mg/dl) (if 192 indicated): Blood Sugar Stated by Patient Height and Weight Body Mass Index (BMI) 25.8 BMI Classification Overweight Vital Signs Temperature (97.8 F-99.1 F) 99.3 F H Temperature Source Temporal Pulse Rate (60-100) 108 H Pulse Location Monitor Respiratory Rate (12-18) 16 Respiratory rate source Observation Oxygen Delivery Method Room Air Blood Pressure (90/60-120/80) 160/80 H Blood Pressure Mean (mm Hg) 106 Source Monitor Position Sitting Blood Pressure Location Left Arm Pain Scale: 0-10 Numeric Is Patient Pain Free? No wound -Description Aching -Intensity 4 -Duration (hours) Chronic -Pain Behavior No Change in Behavior -Pain Aggravating Factors Sitting -Alleviating Factors/Interventions Distraction, Will continue to monitor, Patient denies need for intervention, Emotional Support - Nurse 1 - General Ulcer Measurement Start: 04/21/21 14:39 Freq: Status: Active Protocol: Activity Type Activity Date Activity User E-Sign Co-Sign Detail Recorded Client Recorded Date Recorded By Document 04/21/21 14:39 [facility] Desktop 04/21/21 14:47 [facility] 04/21/21 14:39 Wound Center Nurse 1 #4- L BKA SITE (POST OP) -Combined with other wound No -Current Size (cm) - Length 0.1 -Current Size (cm) - Width 0.1 -Current Size (cm) - Depth 0.1 -Total Square Cm 0.01 -Photo Taken No -Exudate Amt Medium -Exudate Type Serosanguineous -Wound Margin Distinct, Outline Attached -Texture (Teodora-wound Skin Appearance) Assessed -Moisture (Teodora-wound Skin Appearance) Assessed -Color (Teodora-wound Skin Appearance) Assessed -Temperature (Teodora-wound Skin No Abnormality Appearance) (Pt Warm) -Tenderness on Palpation (Teodora-wound No Skin Appearance) -Ulcer Cleansing SOAPY WATER -Foul Odor after Cleansing No -Anesthetic Used 4% Lidocaine Solution - Nurse 2 - General Ulcer CM Notes Start: 04/21/21 14:39 Freq: Status: Active Protocol: Activity Type Activity Date Activity User E-Sign Co-Sign Detail Recorded Client Recorded Date Recorded By Document 04/21/21 15:18 SUSANNE [id number] 04/21/21 15:19 SUSANNE 04/21/21 15:18 Wound Center Nurse 2 -Correct Patient No -Correct Side, Site, Position No -Correct Procedure No -Procedure Performed No -Wound/Ulcer Outcome Amputation Anticipated Pain Scale: 0-10 Numeric Is Patient Pain Free? Yes Assessment/Plan Assessment/Plan (1) Amputation of left lower extremity below knee: CODE(S): S88.112A - Complete traumatic amputation at level between knee and ankle, left lower leg, initial encounter (2) Osteomyelitis: CODE(S): M86.9 - Osteomyelitis, unspecified QUALIFIERS: Laterality: left Osteomyelitis location: foot Osteomyelitis type: unspecified type Qualified Code(s): M86.9 - Osteomyelitis, unspecified (3) Type 2 diabetes mellitus with diabetic polyneuropathy: CODE(S): E11.42 - Type 2 diabetes mellitus with diabetic polyneuropathy QUALIFIERS: Diabetes mellitus middle or intermediate school principal insulin use: without senior care use Qualified Code(s): E11.42 - Type 2 diabetes mellitus with diabetic polyneuropathy (4) Walking difficulty due to ankle and foot: CODE(S): R26.2 - Difficulty in walking, not elsewhere classified (5) 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: CODE(S): L97.523 - Non-pressure 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 PLAN: I reviewed and discussed his case. He is now status post left below-knee amputation performed by Dr. Gallego on 04-12-21. The surgical site appears to be healing well and does not have any local signs of infection. He has completed his course of antibiotics and his PICC line has been removed. He was seen by Dr. De Leon today and will follow up with infectious disease as needed. An updated dressing consisting of Bactroban lightly applied, gauze, and Vinay wrap were applied. The JASE drain was kept intact. This will be changed by home health every other day. Anticipated healing time was briefly reviewed and he was advised to keep all tension and pressure off of the site to allow appropriate healing and to avoid flap or fat pad compromise. To elevate limb and keep swelling reduced. To follow-up with his surgeon as advised. I recommend continuing with any nutritional supplementation if available to optimize healing Note: [employer] speech recognition forklift technician software was used to create portions of this document. Sound-alike and misspelled words, as well as other forklift technician errors may be contained in the documentation. The medical decision making level is low. There is noted low risk of morbidity after considering this treatment plan and diagnostic data. The problems addressed require a low medical decision making level which includes two or more minor problems, a stable chronic illness, or an acute uncomplicated illness or injury.
--- NOTE | 2021-04-21 16:15 | PCM.PN.ID ---
Physical Exam Narrative Feeling well since amputation. Leg improving, pain controlled, no fever, no n/v/d. Picc is out. Const alert and no apparent distress General Appearance: cooperative Resp normal air movement and clear to auscultation bilaterally Cardio regular rate and regular rhythm Skin Skin Narrative: LLE BKA incision healing well, drain in place ID ID: Route of nutrition/ use of supplements: [] Nutritional Intake: [] IV Site: [] Wilkinson Catheter: [] Assessment & Plan Assessment/Plan (1) Osteomyelitis: QUALIFIERS: Osteomyelitis type: unspecified type Osteomyelitis location: foot Laterality: left Qualified Code(s): M86.9 - Osteomyelitis, unspecified PLAN: Now s/p BKA, off abx, picc is out. Reviewed inpatient records. ID followup as needed, d/w Dr. Calloway.
== END 2021-04-28 23:59 ==
LOC: WC 14:20
PROVIDERS: Visit Provider Podiatrist
DX: Z89.512 Acquired absence of left leg below knee (principal); E11.42 Type 2 diabetes mellitus with diabetic polyneuropathy; E66.3 Overweight; Z68.25 Body mass index [BMI] 25.0-25.9, adult; Z79.4 Long term (current) use of insulin; Z79.899 Other long term (current) drug therapy; Z86.19 Personal history of other infectious and parasitic diseases
CPT/HCPCS: 99213; G0463

== ENCOUNTER 2021-05-03 21:56 | Emergency (ER) | payer MEDICAID, SELFPAY ==
[2021-05-03 21:56] VITALS: BP 113/64; PULSE 98; RESP 18; TEMP 36.2; O2SAT 100; BMI 26.6
--- NOTE | 2021-05-03 23:40 | EDS_ITS ---
HPI History of Present Illness Chief Complaint: Wound Narrative Narrative: Patient presenting secondary to a malfunction of his JASE drain. Patient had a left leg below the knee amputation. He states yesterday his JASE drain bulb fell off. He fashioned something to catch his drainage out of a pop bottle, and states that he has continued to have serosanguineous drainage. He has follow-up with plastic surgery, Dr. Gallego, tomorrow. He denies any other new symptoms. He states that he has had about 25 cc of drainage daily. [facility] Medical History Arthritis Bacteremia Blackout 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 COPD (chronic obstructive pulmonary disease) Depression Diabetes DVT (deep venous thrombosis) Former smoker Lilibeth-lilibeth disease History of edema History of heart attack History of pulmonary embolism History of transesophageal echocardiography (BUCK) (~03/11/21) Infection of left foot Injury of head and neck Insulin dependent diabetes mellitus MRSA (methicillin resistant Staphylococcus aureus) MRSA cellulitis of left foot Normal echocardiogram (~03/08/21) Osteomyelitis of ankle and foot Substance abuse Type 2 diabetes mellitus without complications Uses wheelchair Walker as ambulation aid Home Medications blood sugar diagnostic #200 each 01/28/21 [Rx Last Taken Unknown] lancets #200 each 02/03/21 [Rx Last Taken Unknown] pen needle, diabetic 31 gauge x 01/12 #100 each 02/03/21 [Rx Last Taken Unknown] insulin lispro [Humalog KwikPen Insulin] 8 unit SUBCUT TIDCM 03/05/21 [History Last Taken Unknown] Lantus Solostar U-100 Insulin 50 unit SC QHS 04/05/21 [History Last Taken Unknown] diazepam [Valium] 5 mg PO TID PRN #20 tab 04/16/21 [Rx Last Taken Unknown] doxycycline hyclate 100 mg PO BID #30 cap 04/16/21 [Rx Last Taken Unknown] gabapentin [Neurontin] 300 mg PO BID #60 cap 04/16/21 [Rx Last Taken Unknown] gauze bandage #100 ea 04/16/21 [Rx Last Taken Unknown] gauze bandage [Kerlix] #30 ea 04/16/21 [Rx Last Taken Unknown] mupirocin 1 applic TOPICAL DAILY #22 g 04/16/21 [Rx Last Taken Unknown] oxycodone-acetaminophen [Percocet] 1 tab PO Q4H PRN 7 Days #40 tab 04/16/21 [Rx Last Taken Unknown] Allergy/AdvReac Type Severity Reaction Status Date / Time onion Allergy Food Verified 05/03/21 21:59 Allergy Family History Grandmother Diabetes Surgical History History of appendectomy History of neck surgery Hx of foot surgery (~10/04/20) Hx of LASIK Social History Smoking Status: Former smoker alcohol intake: never substance use type: does not use what type of physical activity do you participate in: none ROS ROS ED Constitutional Constitutional ED: Denies fever(s) Respiratory/Chest Respiratory/Chest: Denies cough or dyspnea Gastrointestinal Gastrointestinal: Denies nausea or vomiting Musculoskeletal Musculoskeletal: Denies arthralgias or myalgias Integumentary Denies rash Endocrine Endocrinology: Denies polydipsia or polyuria EXAM Physical Exam Const Vital Signs: 05/03/21 21:56 Temperature 97.2 F L Temperature Source Temporal Pulse Rate 98 Respiratory Rate 18 Blood Pressure 113/64 Blood Pressure Mean 80 Pulse Ox 100 Oxygen Delivery Method Room Air Positive well nourished and well developed General Appearance ED: well developed and NAD HEENT Negative for trauma Eyes EOMs intact bilaterally Resp normal respiratory effort Auscultation: wheezes Cardio regular rate, regular rhythm and no murmurs Extremity Extremity Narrative: Dressing was removed from patient's amputation, shows a well-healing wound. JASE drain sites over the lateral portion of the surgical wound appears clean dry and intact with serosanguineous drainage. Neuro oriented x3 Sensorium / Orientation: alert Skin Rashes: No rashes noted MDM MDM MDM Narrative Medical decision making narrative: Patient presented with a malfunction of his JASE drain. Nursing was able to obtain a new JASE drain bulb, and to fix it with good drainage. There is no signs of infection. Patient has follow-up with his surgeon tomorrow. Patient was discharged with outpatient follow-up tomorrow. Discharge Plan Triage Chief Complaint: Wound ED Provider: Adolfo Hair Dx/Rx/DC Orders Clinical Impression: JASE drain, broken Instructions: ED Post Op Wound Check, General Prescriptions: No Action (DME) lancets [OneTouch UltraSoft Lancets] Misc See Rx Instructions .ROUTE .MEDSUPPLY Qty: 200 RF: 3 (DME) pen needle, diabetic [Comfort EZ Pen [place]] 31 gauge x 3/16 needle See Rx Instructions .ROUTE .MEDSUPPLY Qty: 100 RF: 3 insulin lispro [Humalog KwikPen Insulin] 100 unit/mL insulin pen 8 unit SUBCUT TIDCM RF: 0 Lantus Solostar U-100 Insulin 100 unit/mL (3 mL) insulin pen 50 unit SC QHS RF: 0 doxycycline hyclate 100 mg capsule 100 mg PO BID Qty: 30 RF: 0 oxycodone-acetaminophen [Percocet] 5-325 mg tablet 1 tab PO Q4H PRN (Reason: pain (scale score 7-10)) 7 Days Qty: 40 RF: 0 diazepam [Valium] 5 mg tablet 5 mg PO TID PRN (Reason: spasms) Qty: 20 RF: 0 gabapentin [Neurontin] 300 mg capsule 300 mg PO BID Qty: 60 RF: 3 mupirocin 2 % ointment 1 applic topical DAILY Qty: 22 RF: 3 (DME) gauze bandage 3 X 3 bandage See Rx Instructions .ROUTE .MEDSUPPLY Qty: 100 RF: 1 (DME) Kerlix 4 1/2 X 147 bandage See Rx Instructions .ROUTE .MEDSUPPLY Qty: 30 RF: 1 (DME) OneTouch Ultra Blue Test Strip Strip See Rx Instructions .ROUTE .MEDSUPPLY Qty: 200 RF: 3 Primary Care Provider: Care Physician,No Primary Referrals: Mauro Gallego MD [STAFF PHYSICIAN] - 1 Day Care Physician,No Primary [Primary Care Provider] - Disposition Disposition: Home, Self Care
== END 2021-05-03 23:54 | disposition home or self-care (01) ==
PROVIDERS: Emergency Provider Emergency Medicine
DX: Z48.03 Encounter for change or removal of drains (principal); E11.9 Type 2 diabetes mellitus without complications; J44.9 Chronic obstructive pulmonary disease, unspecified; M19.90 Unspecified osteoarthritis, unspecified site; F32.9 Major depressive disorder, single episode, unspecified; Z89.512 Acquired absence of left leg below knee; Z79.4 Long term (current) use of insulin; Z86.31 Personal history of diabetic foot ulcer; Z86.718 Personal history of other venous thrombosis and embolism; Z86.711 Personal history of pulmonary embolism; Z86.14 Personal history of Methicillin resistant Staphylococcus aureus infection; Z87.891 Personal history of nicotine dependence; I25.2 Old myocardial infarction
CPT/HCPCS: 99282

== ENCOUNTER 2021-05-17 09:15 | Outpatient (RCR) | payer MEDICAID, SELFPAY ==
[2021-04-29 00:35] VITALS: BP 160/80; PULSE 108; RESP 16; TEMP 37.4
[2021-05-04 13:38] VITALS: BP 172/84; PULSE 111; RESP 16; TEMP 36.6; BMI 26.6
--- NOTE | 2021-05-04 13:45 | WC ---
post op sutures intact
--- NOTE | 2021-05-04 14:39 | PCM.WC.PN ---
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 Cultures showed MRSA, Morganella morganii, and Proteus mirabilis. He was treated with Vancomycin and Zosyn. He also has MRSA bacteremia as well. [facility] had [facility]. He was recently placed on Bactrim. He was undergoing HBO treatments and wound care was done with the [facility]. He states he had fever at home prior to admission. He had an x-ray done on 03/03/21 which showed no osteomyelitis and MRI was recommended. He needed IV antibiotics back in November, MRI was done on 03/05/21. It showed Mild to moderate osteomyelitis on the plantar aspect of the posterior process of the calcaneus. Large soft tissue heel ulcer/wound. He had vascular studies which showed triphasic PT and DP pulses bilateral. His right NADIA is 1.12 and left 1.16. His toe brachial index is 1.12 on the right and 1.34 on the left. There is no significant segmental pressure drop and therefore no arterial occlusive lesion is suspected. WBC was 10.9 upon admission. Today it is 8.1. Lactate was 1.0. ESR was 50. CRP was 93.70. Prealbumin was 11.0. HgbA1c from 03/06/21 was 7.3. Amputation was completed on 04/12/21. He is doing well and his drain is in place. He has been trying to elevate and has maintained nonweightbearing status. He denies fever, chill, nausea, vomiting. He states that his appetite is good. He states that he did fall this past week on his stump. He denies any increased pain. Progress of Wound: Incision is dry and intact. Sutures are intact. Kam drain is intact. Objective Data Objective Data Vital Signs: Vital Signs Temp Pulse Resp BP 98 F 111 H 16 172/84 H 05/04/21 13:38 05/04/21 13:38 05/04/21 13:38 05/04/21 13:38 Oxygen Delivery Method Room Air Body Mass Index (BMI) 26.6 Charges/Coding Procedures Integumentary 111xxx-113xx: 95483 Global Visit Physical Exam Const alert and oriented x3 HEENT normocephalic Head and Scalp: atraumatic Eyes PERRL Resp normal respiratory effort Cardio regular rate Skin Wound Narrative: Left BKA incision is dry and intact. Sutures are intact. Kam drain is draining serosanguineous drainage. No signs of hematoma. Mild swelling of stump is present. Kam drain removed without difficulty. Half of the sutures removed without difficulty. Neuro CN's II-XII intact bilaterally Psych Thought Process: normal thought process Debridement Note Debridement Note Post-Debridement Measurements and Additional Note: Post-Debridement Measurements/Treatment - Nurse 1 - General Ulcer Assessment Start: 05/04/21 13:38 Freq: Status: Active Protocol: [facility] Activity Type Activity Date Activity User E-Sign Co-Sign Detail Recorded Client Recorded Date Recorded By Document 05/04/21 13:38 [facility] Desktop 05/04/21 13:45 [facility] 05/04/21 13:38 WC - Today's Visit Information Type of service Follow-up Visit (Physician/TALENT ACQUISITION DIRECTOR ) Arrival Mode Ambulatory, Walker Arrival Mode (Other) knee walker Transfer Assistance Other Transfer Assist (Other) stand by Patient Identification Verified (Name & Yes ) Patient Requires Transmission-Based No Precautions Height and Weight Body Mass Index (BMI) 26.6 BMI Classification Overweight Vital Signs Temperature (97.8 F-99.1 F) 98 F Temperature Source Temporal Pulse Rate (60-100) 111 H Pulse Location Monitor Respiratory Rate (12-18) 16 Respiratory rate source Observation Oxygen Delivery Method Room Air Blood Pressure (90/60-120/80) 172/84 H Blood Pressure Mean (mm Hg) 113 Source Monitor Position Sitting Blood Pressure Location Left Arm History Since Last Visit- (Skip if this is Patient's initial visit) Have you changed medications since your No last visit? Any new allergies or adverse reactions No Had a fall/change in ADL's that may Yes increase risk of falls Signs or symptoms of abuse and/or No neglect since last visit Have you been in the hospital since your No last visit? Has dressing in place as prescribed Yes Has compression in place as prescribed Yes Has offloadiing in place as prescribed Yes Experienced any changes in pain level or No management Pain Scale: 0-10 Numeric Is Patient Pain Free? Yes - Nurse 1 - General Ulcer Measurement Start: 05/04/21 13:38 Freq: Status: Active Protocol: Activity Type Activity Date Activity User E-Sign Co-Sign Detail Recorded Client Recorded Date Recorded By Document 05/04/21 13:38 [facility] Desktop 05/04/21 13:45 [facility] 05/04/21 13:38 Wound Center Nurse 1 #4- L BKA SITE (POST OP) -Combined with other wound No -Current Size (cm) - Length 0.1 -Current Size (cm) - Width 0.1 -Current Size (cm) - Depth 0.1 -Total Square Cm 0.01 -Exudate Amt None Present -Texture (Teodora-wound Skin Appearance) Assessed -Moisture (Teodora-wound Skin Appearance) Assessed -Color (Teodora-wound Skin Appearance) Assessed, Erythema -Temperature (Teodora-wound Skin No Abnormality Appearance) (Pt Warm) -Tenderness on Palpation (Teodora-wound No Skin Appearance) -Ulcer Cleansing soapy water -Foul Odor after Cleansing No -Anesthetic Used 4% Lidocaine Solution - Nurse 2 - General Ulcer CM Notes Start: 05/04/21 13:38 Freq: Status: Active Protocol: Activity Type Activity Date Activity User E-Sign Co-Sign Detail Recorded Client Recorded Date Recorded By Document 05/04/21 13:58 [id number] 05/04/21 14:04 Document 05/04/21 14:05 [id number] 05/04/21 14:05 05/04/21 05/04/21 13:58 14:05 Wound Center Nurse 2 #4- L BKA SITE (POST OP) -Correct Patient No No -Correct Side, Site, Position No No -Correct Procedure No No -Procedure Performed No No -Tunneling No -Undermining/Tunneling No -Circular Undermining No -Wound/Ulcer Outcome Amputation -Ulcer Cleansing Rinsed/ Irrigated with Saline -Foul Odor after Cleansing No -Bioengineered Tissue No -Bleeding Controlled with Pressure -Offloading Yes -Type of Offloading Knee Walker -Treatment Response Procedure Tolerated Well -Debridement - Subq, 1st 20sq cm No Pain Scale: 0-10 Numeric Is Patient Pain Free? Yes Yes - Nurse 3 - General Ulcer D/C NN Start: 05/04/21 13:38 Freq: Status: Active Protocol: Activity Type Activity Date Activity User E-Sign Co-Sign Detail Recorded Client Recorded Date Recorded By Document 05/04/21 14:05 [id number] 05/04/21 14:06 SUSANNE 05/04/21 14:05 Wound Care Nurse 3 #4- L BKA SITE (POST OP) -Ulcer Cleansing Rinsed/ Irrigated with Saline -Foul Odor after Cleansing No -Other Dressing bacitracin -Primary Dressing Covered/Secured with Dry Gauze & Roll Gauze, Secured with Tape Left -Compression Wrap Vinay Wrap Pain Scale: 0-10 Numeric Is Patient Pain Free? 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 (3) Diabetes: CODE(S): E11.9 - Type 2 diabetes mellitus without complications QUALIFIERS: Diabetes mellitus type: type 2 Diabetes mellitus correction insulin use: with terminal computer operator use Diabetes mellitus complication status: with diabetic arthropathy Qualified Code(s): E11.610 - Type 2 diabetes mellitus with diabetic neuropathic arthropathy; Z79.4 - prison (current) use of insulin (4) Type 2 diabetes mellitus with diabetic polyneuropathy: CODE(S): E11.42 - Type 2 diabetes mellitus with diabetic polyneuropathy QUALIFIERS: Diabetes mellitus correction insulin use: without terminal computer operator use Qualified Code(s): E11.42 - Type 2 diabetes mellitus with diabetic polyneuropathy PLAN: Wound care - Place antibiotic ointment daily to the suture line. Cover with gauze and place an VINAY wrap for compression. Kam drain removed today without difficulty. Patient had a recent fall this past week. Instructed patient to try and be careful on his knee scooter to prevent further falls. He may stop the Doxycycline now that the drain is removed. Follow up one week.
[2021-05-17 09:23] VITALS: BP 137/86; PULSE 179; TEMP 35.8; BMI 26.6
--- NOTE | 2021-05-17 13:00 | PCM.WC.PN ---
History of Present Illness Date of Service: 05/17/21 Chief Complaint: Diabetic, left heel ulcer with osteomyelitis. 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 Cultures showed MRSA, Morganella morganii, and Proteus mirabilis. He was treated with Vancomycin and Zosyn. He also has MRSA bacteremia as well. He had been going to the [facility]. He was recently placed on Bactrim. He was undergoing HBO treatments and wound care was done with the [facility]. He states he had fever at home prior to admission. He had an x-ray done on 03/03/21 which showed no osteomyelitis and MRI was recommended. He needed IV antibiotics back in November, MRI was done on 03/05/21. It showed Mild to moderate osteomyelitis on the plantar aspect of the posterior process of the calcaneus. Large soft tissue heel ulcer/wound. He had vascular studies which showed triphasic PT and DP pulses bilateral. His right NADIA is 1.12 and left 1.16. His toe brachial index is 1.12 on the right and 1.34 on the left. There is no significant segmental pressure drop and therefore no arterial occlusive lesion is suspected. WBC was 10.9 upon admission. Today it is 8.1. Lactate was 1.0. ESR was 50. CRP was 93.70. Prealbumin was 11.0. HgbA1c from 03/06/21 was 7.3. Amputation was completed on 04/12/21. He is doing well. He has been trying to elevate and has maintained nonweightbearing status. He denies fever, chill, nausea, vomiting. He states that his appetite is good. He states that he did fall this past week on his stump. He denies any increased pain. Progress of Wound: Incision is dry and intact. Remaining sutures removed today. He has a small incisional separation on the left medial aspect of the incision. Objective Data Objective Data Vital Signs: Vital Signs Temp Pulse Resp BP 96.5 F L 179 H 16 137/86 H 05/17/21 09:23 05/17/21 09:23 05/04/21 13:38 05/17/21 09:23 Oxygen Delivery Method Room Air Body Mass Index (BMI) 26.6 Charges/Coding Procedures Integumentary 111xxx-113xx: 72809 Global Visit Physical Exam Const alert and oriented x3 HEENT normocephalic Lymph Lymphatic: no lymphedema noted Resp normal respiratory effort Cardio regular rate GI non-tender Palpation: soft Extremity normal capillary refill Skin Wounds: amputation Wound Narrative: Left BKA incision is dry and intact. Remaining sutures removed without difficulty. There is a small separation on the left medial aspect of the incision that is full thickness with no drainage. Neuro CN's II-XII intact bilaterally Psych Appearance: grossly normal Debridement Note Debridement Note Post-Debridement Measurements and Additional Note: Post-Debridement Measurements/Treatment - Nurse 1 - General Ulcer Assessment Start: 05/04/21 13:38 Freq: Status: Active Protocol: [employer] Activity Type Activity Date Activity User E-Sign Co-Sign Detail Recorded Client Recorded Date Recorded By Document 05/04/21 13:38 [facility] Desktop 05/04/21 13:45 [facility] Document 05/17/21 09:23 KR Desktop 05/17/21 09:31 KR 05/04/21 05/17/21 13:38 09:23 - Today's Visit Information Type of service Follow-up Visit Follow-up Visit (Physician/COMMERCIAL ACCOUNT EXECUTIVE (Physician/COMMERCIAL ACCOUNT EXECUTIVE ) ) Arrival Mode Ambulatory, Wheelchair Walker Arrival Mode (Other) knee walker Transfer Assistance Other Transfer Assist (Other) stand by Patient Identification Verified (Name & Yes Yes ) Patient Requires Transmission-Based No Precautions Height and Weight Body Mass Index (BMI) 26.6 26.6 BMI Classification Overweight Overweight Vital Signs Temperature (97.8 F-99.1 F) 98 F 96.5 F L Temperature Source Temporal Oral Pulse Rate (60-100) 111 H 179 H Pulse Location Monitor Monitor Respiratory Rate (12-18) 16 Respiratory rate source Observation Oxygen Delivery Method Room Air Blood Pressure (90/60-120/80) 172/84 H 137/86 H Blood Pressure Mean (mm Hg) 113 103 Source Monitor Monitor Position Sitting Sitting Blood Pressure Location Left Arm Right Arm History Since Last Visit- (Skip if this is Patient's initial visit) Have you changed medications since your No No last visit? Any new allergies or adverse reactions No No Had a fall/change in ADL's that may Yes No increase risk of falls Signs or symptoms of abuse and/or No No neglect since last visit Have you been in the hospital since your No No last visit? Has dressing in place as prescribed Yes Yes Has compression in place as prescribed Yes N/A Has offloadiing in place as prescribed Yes N/A Experienced any changes in pain level or No No management Pain Scale: 0-10 Numeric Is Patient Pain Free? Yes Yes - Nurse 1 - General Ulcer Measurement Start: 05/04/21 13:38 Freq: Status: Active Protocol: Activity Type Activity Date Activity User E-Sign Co-Sign Detail Recorded Client Recorded Date Recorded By Document 05/04/21 13:38 [facility] Desktop 05/04/21 13:45 [facility] Document 05/17/21 09:23 KR Desktop 05/17/21 09:31 KR 05/04/21 05/17/21 13:38 09:23 Wound Center Nurse 1 #4- L BKA SITE (POST OP) -Combined with other wound No -Current Size (cm) - Length 0.1 0.1 -Current Size (cm) - Width 0.1 0.1 -Current Size (cm) - Depth 0.1 0.1 -Total Square Cm 0.01 0.01 -Exudate Amt None Present -Texture (Teodora-wound Skin Appearance) Assessed -Moisture (Teodora-wound Skin Appearance) Assessed -Color (Teodora-wound Skin Appearance) Assessed, Erythema -Temperature (Teodora-wound Skin No Abnormality Appearance) (Pt Warm) -Tenderness on Palpation (Teodora-wound No Skin Appearance) -Ulcer Cleansing soapy water -Foul Odor after Cleansing No -Anesthetic Used 4% Lidocaine Solution - Nurse 2 - General Ulcer CM Notes Start: 05/04/21 13:38 Freq: Status: Active Protocol: Activity Type Activity Date Activity User E-Sign Co-Sign Detail Recorded Client Recorded Date Recorded By Document 05/04/21 13:58 [id number] 05/04/21 14:04 Document 05/04/21 14:05 [id number] 05/04/21 14:05 05/04/21 05/04/21 13:58 14:05 Wound Center Nurse 2 #4- L BKA SITE (POST OP) -Correct Patient No No -Correct Side, Site, Position No No -Correct Procedure No No -Procedure Performed No No -Tunneling No -Undermining/Tunneling No -Circular Undermining No -Wound/Ulcer Outcome Amputation -Ulcer Cleansing Rinsed/ Irrigated with Saline -Foul Odor after Cleansing No -Bioengineered Tissue No -Bleeding Controlled with Pressure -Offloading Yes -Type of Offloading Knee Walker -Treatment Response Procedure Tolerated Well -Debridement - Subq, 1st 20sq cm No Pain Scale: 0-10 Numeric Is Patient Pain Free? Yes Yes - Nurse 3 - General Ulcer D/C NN Start: 05/04/21 13:38 Freq: Status: Active Protocol: Activity Type Activity Date Activity User E-Sign Co-Sign Detail Recorded Client Recorded Date Recorded By Document 05/04/21 14:05 [id number] 05/04/21 14:06 Document 05/17/21 11:26 [facility] Desktop 05/17/21 11:26 [facility] 05/04/21 05/17/21 14:05 11:26 Wound Care Nurse 3 #4- L BKA SITE (POST OP) -Ulcer Cleansing Rinsed/ Rinsed/ Irrigated with Irrigated with Saline Saline -Foul Odor after Cleansing No No -Primary Dressing Applied C Hydrogel ($) -Other Dressing bacitracin -Primary Dressing Covered/Secured with Dry Gauze & Dry Gauze & Roll Gauze, Roll Gauze, Secured with Secured with Tape Tape Left -Compression Wrap Vinay Wrap Vinay Wrap Treatment Response Procedure Tolerated Well Pain Scale: 0-10 Numeric Is Patient Pain Free? 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: CODE(S): L97.523 - Non-pressure 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 (3) Diabetes: CODE(S): E11.9 - Type 2 diabetes mellitus without complications QUALIFIERS: Diabetes mellitus type: type 2 Diabetes mellitus sales training coordinator insulin use: with assisted use Diabetes mellitus complication status: with diabetic arthropathy Qualified Code(s): E11.610 - Type 2 diabetes mellitus with diabetic neuropathic arthropathy; Z79.4 - liquor department manager (current) use of insulin (4) Delayed surgical wound healing: CODE(S): T81.89XA - Other complications of procedures, not elsewhere classified, initial encounter QUALIFIERS: Encounter type: subsequent encounter Qualified Code(s): T81.89XD - Other complications of procedures, not elsewhere classified, subsequent encounter PLAN: Wound care - Remaining sutures removed today. Place collagen hydrogel to the incisional separation on the left medial BKA stump daily. Cover with gauze and place an VINAY wrap for compression. Ok to wash incision with soap and water daily. Reinforced the importance of doing his PT. Encouraged good glycemic control. Follow up one week.
== END 2021-05-29 23:59 ==
LOC: WC 09:15
PROVIDERS: Visit Provider Podiatrist
DX: T87.81 Dehiscence of amputation stump (principal); Y83.5 Amputation of limb(s) as the cause of abnormal reaction of the patient, or of later complication, without mention of misadventure at the time of the procedure; Y92.9 Unspecified place or not applicable; E11.610 Type 2 diabetes mellitus with diabetic neuropathic arthropathy; E11.42 Type 2 diabetes mellitus with diabetic polyneuropathy; E66.3 Overweight; Z68.26 Body mass index [BMI] 26.0-26.9, adult; Z79.4 Long term (current) use of insulin; Z79.899 Other long term (current) drug therapy; Z86.14 Personal history of Methicillin resistant Staphylococcus aureus infection; Z87.39 Personal history of other diseases of the musculoskeletal system and connective tissue; Z89.512 Acquired absence of left leg below knee
CPT/HCPCS: 11042; 99213; G0463

== ENCOUNTER 2021-06-28 14:30 | Outpatient (RCR) | payer MEDICAID, SELFPAY ==
[2021-05-30 00:34] VITALS: BP 137/86; PULSE 179; RESP 16; TEMP 35.8
[2021-06-28 14:36] VITALS: BP 155/88; PULSE 104; RESP 20; TEMP 36.4; BMI 26.6
--- NOTE | 2021-06-28 15:14 | PCM.WC.PN ---
History of Present Illness Date of Service: 06/28/21 Chief Complaint: Diabetic, left heel ulcer with osteomyelitis. 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 Cultures showed MRSA, Morganella morganii, and Proteus mirabilis. He was treated with Vancomycin and Zosyn. He also has MRSA bacteremia as well. He had been going to [facility]. He was recently placed on Bactrim. He was undergoing HBO treatments and wound care was done with the V[facility]. He states he had fever at home prior to admission. He had an x-ray done on 03/03/21 which showed no osteomyelitis and MRI was recommended. He needed IV antibiotics back in November, MRI was done on 03/05/21. It showed Mild to moderate osteomyelitis on the plantar aspect of the posterior process of the calcaneus. Large soft tissue heel ulcer/wound. He had vascular studies which showed triphasic PT and DP pulses bilateral. His right NADIA is 1.12 and left 1.16. His toe brachial index is 1.12 on the right and 1.34 on the left. There is no significant segmental pressure drop and therefore no arterial occlusive lesion is suspected. WBC was 10.9 upon admission. Prealbumin was 11.0. HgbA1c from 03/06/21 was 7.3. Amputation was completed on 04/12/21. He is doing well. He has been trying to elevate and has maintained nonweightbearing status. Wound care - Collagen hydrogel covered with gauze daily to the separation on his stump incision. He denies fever, chill, nausea, vomiting. He states that his appetite is good. He states that he has fallen on his stump in the past. Progress of Wound: Improved. Objective Data Objective Data Vital Signs: Vital Signs Temp Pulse Resp BP 97.5 F L 104 H 20 H 155/88 H 06/28/21 14:36 06/28/21 14:36 06/28/21 14:36 06/28/21 14:36 Body Mass Index (BMI) 26.6 Charges/Coding Procedures Integumentary [id number]: [id number] Global Visit Physical Exam Const alert and oriented x3 HEENT normocephalic Eyes PERRL Lymph Lymphatic: no lymphedema noted Resp normal respiratory effort Cardio regular rate GI non-tender Extremity normal capillary refill Skin Wound Narrative: Left BKA stump ulcer that shows improvement. No drainage today. Neuro CN's II-XII intact bilaterally Psych Appearance: grossly normal Debridement Note Debridement Note Post-Debridement Measurements and Additional Note: Post-Debridement Measurements/Treatment - Nurse 1 - General Ulcer Assessment Start: 06/28/21 14:36 Freq: Status: Active Protocol: [email or web address].LOWEXT Activity Type Activity Date Activity User E-Sign Co-Sign Detail Recorded Client Recorded Date Recorded By Document 06/28/21 14:36 DL [id number] 06/28/21 14:44 DL 06/28/21 14:36 WC - Today's Visit Information Type of service Follow-up Visit (Physician/HEADLIGHT ASSEMBLER ) Arrival Mode Ambulatory, Walker Transfer Assistance None Patient Identification Verified (Name & Yes ) Patient Requires Transmission-Based No Precautions Height and Weight Body Mass Index (BMI) 26.6 BMI Classification Overweight Vital Signs Temperature (97.8 F-99.1 F) 97.5 F L Temperature Source Temporal Pulse Rate (60-100) 104 H Pulse Location Monitor Respiratory Rate (12-18) 20 H Respiratory rate source Observation Blood Pressure (90/60-120/80) 155/88 H Blood Pressure Mean (mm Hg) 110 Source Monitor History Since Last Visit- (Skip if this is Patient's initial visit) Have you changed medications since your No last visit? Any new allergies or adverse reactions No Had a fall/change in ADL's that may No increase risk of falls Signs or symptoms of abuse and/or No neglect since last visit Have you been in the hospital since your No last visit? Has dressing in place as prescribed Yes Has compression in place as prescribed Yes Has offloadiing in place as prescribed Yes Experienced any changes in pain level or No management Left Footwear No Footwear Pain Scale: 0-10 Numeric Is Patient Pain Free? Yes - Nurse 1 - General Ulcer Measurement Start: 06/28/21 14:36 Freq: Status: Active Protocol: Activity Type Activity Date Activity User E-Sign Co-Sign Detail Recorded Client Recorded Date Recorded By Document 06/28/21 14:36 DL [id number] 06/28/21 14:44 DL 06/28/21 14:36 Wound Center Nurse 1 #4- L BKA SITE (POST OP) -Current Size (cm) - Length 0.4 -Current Size (cm) - Width 0.5 -Current Size (cm) - Depth 0.2 -Total Square Cm 0.20 -Photo Taken No -Exudate Amt None Present -Wound Margin Distinct, Outline Attached -Granulation Amt Small (1-33%) -Granulation Quality [place] -Necrosis Amt Small (1-33%) -Necrotic Tissue Type Adherent Slough -Structure Exposed N/A -Texture (Teodora-wound Skin Appearance) Scarring -Color (Teodora-wound Skin Appearance) Not Assessed, Erythema -Temperature (Teodora-wound Skin No Abnormality Appearance) (Pt Warm) -Tenderness on Palpation (Teodora-wound No Skin Appearance) -Ulcer Cleansing Wound Cleanser -Foul Odor after Cleansing No -Anesthetic Used 5% Lidocaine Gel WC - Nurse 2 - General Ulcer CM Notes Start: 06/28/21 14:36 Freq: Status: Active Protocol: Activity Type Activity Date Activity User E-Sign Co-Sign Detail Recorded Client Recorded Date Recorded By Document 06/28/21 15:07 SUSANNE [id number] 06/28/21 15:09 SUSANNE 06/28/21 15:07 Wound Center Nurse 2 -Time 15:08 -Correct Patient Yes -Correct Side, Site, Position Yes -Correct Procedure Yes -Procedure Performed Yes -Type of Procedure Debridement -Clinical Debridement Subcutaneous -Tissue Removed Subcutaneous -Post Debridement (cm) - Length 0.4 -Post Debridement (cm) - Width 0.5 -Post Debridement (cm) - Depth 0.1 -Total Square (Post) (cm) 0.20 -Area of Debridement (cm) - Length 0.4 -Area of Debridement (cm) - Width 0.5 -Total Square (Area) (cm) 0.20 -Tunneling No -Undermining/Tunneling No -Circular Undermining No -Wound/Ulcer Outcome Not Healed -Ulcer Cleansing Rinsed/ Irrigated with Saline -Foul Odor after Cleansing No -Bioengineered Tissue No -Bleeding Controlled with Pressure -Offloading Yes -Type of Offloading Knee Walker -Treatment Response Procedure Tolerated Well -Debridement - Subq, 1st 20sq cm Yes Pain Scale: 0-10 Numeric Is Patient Pain Free? Yes Wound debrided: BKA ulcer Laterality: Left Type of Debridement: Excisional debridement Anesthesia Used: 5% Lidocaine Gel Depth: Down to and including healthy tissue and in the subcutaneous layer Percentage of wound debrided: 100 Instrument Used: 3mm curette Tissue Removed: Subcutaneous tissue and slough Severity: Fat Layer Exposed Amount of bleeding with debridement: Mild Bleeding Controlled with: Pressure Patient tolerated procedure: Patient tolerated procedure well Assessment/Plan Assessment/Plan (1) Amputation of left lower extremity below knee: CODE(S): S88.112A - Complete traumatic amputation at level between knee and ankle, left lower leg, initial encounter (2) Diabetes: CODE(S): E11.9 - Type 2 diabetes mellitus without complications QUALIFIERS: Diabetes mellitus type: type 2 Diabetes mellitus shelter insulin use: with terminal system operator use Diabetes mellitus complication status: with diabetic arthropathy Qualified Code(s): E11.610 - Type 2 diabetes mellitus with diabetic neuropathic arthropathy; Z79.4 - director long term care (current) use of insulin (3) Delayed surgical wound healing: CODE(S): T81.89XA - Other complications of procedures, not elsewhere classified, initial encounter QUALIFIERS: Encounter type: subsequent encounter Qualified Code(s): T81.89XD - Other complications of procedures, not elsewhere classified, subsequent encounter PLAN: Covered with gauzeWound care - Collagen hydrogel to the incisional separation on the left medial BKA stump daily. Cover with gauze and place an NEWTON wrap for compression. Ok to wash incision with soap and water daily. Reinforced the importance of doing his PT. Encouraged good glycemic control. Encouraged increased protein intake to help with wound healing. Follow up two weeks.
== END 2021-06-29 23:59 ==
LOC: WC 14:30
PROVIDERS: Visit Provider Nurse Practitioner Family
DX: T87.81 Dehiscence of amputation stump (principal); Y83.5 Amputation of limb(s) as the cause of abnormal reaction of the patient, or of later complication, without mention of misadventure at the time of the procedure; Y92.9 Unspecified place or not applicable; Z89.512 Acquired absence of left leg below knee; E11.610 Type 2 diabetes mellitus with diabetic neuropathic arthropathy; E66.3 Overweight; Z68.26 Body mass index [BMI] 26.0-26.9, adult; Z79.4 Long term (current) use of insulin; Z79.899 Other long term (current) drug therapy; Z86.14 Personal history of Methicillin resistant Staphylococcus aureus infection; Z87.39 Personal history of other diseases of the musculoskeletal system and connective tissue
CPT/HCPCS: 11042

== ENCOUNTER 2021-06-30 07:56 | Emergency (ER) | payer MEDICAID, SELFPAY ==
[2021-06-30 07:56] VITALS: BP 125/88; PULSE 163; RESP 16; TEMP 36.8; O2SAT 99; BMI 28.2
[2021-06-30] MEDS: Adenosine 6 MG/2 ML Syringe IV (08:02)
[2021-06-30 08:03] VITALS: O2SAT 96
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
--- NOTE | 2021-06-30 08:16 | EKG12_ITS ---
Test Reason : RAPID HR Blood Pressure : / mmHG Vent. Rate : 089 BPM Atrial Rate : 089 BPM P-R Int : 136 ms QRS Dur : 086 ms QT Int : 328 ms P-R-T Axes : 064 017 061 degrees QTc Int : 399 ms Normal sinus rhythm Normal ECG Confirmed by BONITA KEMP, ELO ([id number]), content editor HARSHAL MADRIGAL ([id number]) on 07/01/2021 12:51:38 PM Referred By: SUE Confirmed By:MOHAMUD MESA MD
[2021-06-30] MEDS: Metoprolol Tartrate 5 MG/5 ML Vial IV (08:23)
--- NOTE | 2021-06-30 08:30 | EKG12_ITS ---
Test Reason : RAPID HR Blood Pressure : / mmHG Vent. Rate : 164 BPM Atrial Rate : 164 BPM P-R Int : 130 ms QRS Dur : 080 ms QT Int : 250 ms P-R-T Axes : 000 031 044 degrees QTc Int : 412 ms Sinus tachycardia Nonspecific ST abnormality Abnormal ECG Confirmed by BONITA KEMP, ELO ([id number]), scientific editor HARSHAL MADRIGAL ([id number]) on 07/01/2021 12:52:07 PM Referred By: SUE Confirmed By:MOHAMUD MESA MD
--- NOTE | 2021-06-30 08:30 | RAD_ITS ---
STUDY: X-RAY CHEST REASON FOR EXAM: Male, 61 years old. palpitations TECHNIQUE: Single AP portable view of the chest. COMPARISON: None. FINDINGS: Chronic postsurgical changes at the neck. Cardiac silhouette unremarkable. Pulmonary vascularity unremarkable. Aorta unremarkable. No focal patchy airspace opacities. No pleural effusions. COPD/emphysema Upper abdomen unremarkable. Osseous structures intact. No pneumothorax. RAD/Chest 1 View (Portable) IMPRESSION: No acute cardiopulmonary findings Electronically Signed: Jose Lin DO at 8:46 EDT Tel , Service support ,
[2021-06-30 08:34] LABS: Absolute Lymphocyte Count 1.48 X10^3/uL (0.83-4.51); Absolute Neutrophil Count 6.8 X10^3/uL (2.0-7.7); Basophil# 0.07 X10^3/uL; Basophil% 0.7 % (0-1); Eosinophil# 0.31 X10^3/uL; Eosinophils% 3.3 % (0-5); Hematocrit 43.7 % (40-54); Hemoglobin 14.3 g/dL (13.0-16.5); Lymphocyte # 1.48 X10^3/ul (0.83-4.51); Lymphocyte % 15.6 % (19-41); Mean Corp Hgb Conc 32.7 g/dL (32-36); Mean Corpuscular Hgb 27.9 pg (27.0-32.0); Mean Corpuscular Volume 85.4 fL (80-94); Mean Platelet Vol. 10.1 fl (6.2-12.0); Monocyte# 0.74 X10^3/uL; Monocyte% 7.8 % (0-10); NRBC Flagged by Analyzer 0 % (0-5); Neutrophil # 6.82 X10^3/uL (2.7-7.7); Neutrophil % 72.2 % (47-70); Platelet Count 292 K/mm3 (150-450); RBC Distribution Width CV 14.5 % (11.6-14.6); RBC Distribution Width SD 45.5 fl (35.1-43.9); Red Blood Count 5.12 M/mm3 (4.6-6.2); White Blood Count 9.5 K/mm3 (4.4-11.0)
[2021-06-30 08:51] LABS: ALB/GLOB Ratio 0.7 RATIO (0.9-2.4); AST(SGOT) 22 U/L (15-37); Alanine Aminotransfer ALT/SGPT 26 U/L (16-61); Albumin, Serum 3.2 g/dL (3.2-5.0); Alkaline Phosphatase 156 U/L (45-117); Anion Gap 7 (5-15); BUN 19 mg/dL (7-18); BUN/Creat Ratio 20.7 RATIO (10-20); Calcium,Total 9.2 mg/dL (8.5-10.1); Chloride 102 mmol/L (98-107); Creatinine, Serum 0.92 mg/dL (0.70-1.30); EST Glomerular Filtration Rate 89 mL/min (>60); Est Glom Filt Rate - Afr Amer 107 mL/min (>60); Estimated Creatinine Clearance 85.96 ml/min; Globulin 4.9 g/dL (2.2-4.2); Glucose 391 mg/dL (74-106); Potassium 3.9 mmol/L (3.5-5.1); Protein, Total 8.1 g/dL (6.4-8.2); Sodium Level 134 mmol/L (136-145)
[2021-06-30 08:57] VITALS: BP 110/72; PULSE 74; RESP 19; O2SAT 97
[2021-06-30 09:32] VITALS: BP 111/69; PULSE 78; RESP 20; O2SAT 97
== END 2021-06-30 09:33 | disposition home or self-care (01) ==
PROVIDERS: Emergency Provider Emergency Medicine
DX: I47.1 Supraventricular tachycardia (principal); E11.621 Type 2 diabetes mellitus with foot ulcer; I25.2 Old myocardial infarction; Z79.899 Other long term (current) drug therapy; Z79.4 Long term (current) use of insulin; Z86.711 Personal history of pulmonary embolism; Z87.891 Personal history of nicotine dependence
CPT/HCPCS: 36415; 71045; 80053; 85025; 93005; 96374; 99285; J7030; A4216; J0153

== ENCOUNTER 2021-07-19 08:15 | Outpatient (RCR) | payer MEDICAID, SELFPAY ==
[2021-06-30 00:37] VITALS: BP 155/88; PULSE 104; RESP 20; TEMP 36.4; BMI 26.6
[2021-07-19 08:25] VITALS: BP 145/74; PULSE 109; RESP 16; TEMP 36.8; BMI 26.6
--- NOTE | 2021-07-19 12:53 | PN.PCM_ITS ---
History of Present Illness Date of Service: 07/19/21 Chief Complaint: Diabetic, left heel ulcer with osteomyelitis. 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 Cultures showed MRSA, Morganella morganii, and Proteus mirabilis. He was treated with Vancomycin and Zosyn. He also has MRSA bacteremia as well. He had been going to the [facility] Center. He was recently placed on Bactrim. He was undergoing HBO treatments and wound care was done with the V[facility]. He states he had fever at home prior to admission. He had an x-ray done on 03/03/21 which showed no osteomyelitis and MRI was recommended. He needed IV antibiotics back in November, MRI was done on 03/05/21. It showed Mild to moderate osteomyelitis on the plantar aspect of the posterior process of the calcaneus. Large soft tissue heel ulcer/wound. He had vascular studies which showed triphasic PT and DP pulses bilateral. His right NADIA is 1.12 and left 1.16. His toe brachial index is 1.12 on the right and 1.34 on the left. There is no significant segmental pressure drop and therefore no arterial occlusive lesion is suspected. WBC was 10.9 upon admission. Prealbumin was 11.0. HgbA1c from 03/06/21 was 7.3. Amputation was completed on 04/12/21. He is doing well. He has been trying to elevate and has maintained nonweightbearing status. Wound care - Collagen hydrogel covered with gauze daily to the separation on his stump incision. He denies fever, chill, nausea, vomiting. He states that his appetite is good. He states that he has fallen on his stump in the past. Progress of Wound: Healed today. Objective Data Objective Data Vital Signs: Vital Signs Temp Pulse Resp BP 98.2 F 109 H 16 145/74 H 07/19/21 08:25 07/19/21 08:25 07/19/21 08:25 07/19/21 08:25 Oxygen Delivery Method Room Air Body Mass Index (BMI) 26.6 Charges/Coding Visit Charges Office Visits / Consults: 42763 OV L3 Est Physical Exam Const alert and oriented x3 General Appearance: cooperative HEENT Head and Scalp: atraumatic Eyes PERRL Lymph Lymphatic: no lymphedema noted Resp normal respiratory effort Cardio regular rate GI Palpation: soft Extremity normal capillary refill Skin Wound Narrative: Left BKA incision is dry and intact. He is healed today. He has minimal edema. Neuro CN's II-XII intact bilaterally Psych Appearance: grossly normal Debridement Note Debridement Note No debridement was completed: No debridement was completed today Assessment/Plan Assessment/Plan (1) Amputation of left lower extremity below knee: CODE(S): S88.112A - Complete traumatic amputation at level between knee and ankle, left lower leg, initial encounter (2) Delayed surgical wound healing: CODE(S): T81.89XA - Other complications of procedures, not elsewhere classified, initial encounter QUALIFIERS: Encounter type: subsequent encounter Qualified Code(s): T81.89XD - Other complications of procedures, not elsewhere classified, subsequent encounter (3) Diabetes: CODE(S): E11.9 - Type 2 diabetes mellitus without complications QUALIFIERS: Diabetes mellitus type: type 2 Diabetes mellitus correction insulin use: with intermediate teacher use Diabetes mellitus complication status: with diabetic arthropathy Qualified Code(s): E11.610 - Type 2 diabetes mellitus with diabetic neuropathic arthropathy; Z79.4 - technician terminal and repeater (current) use of insulin (4) Noncompliance with medication regimen: CODE(S): Z91.14 - Patient's other noncompliance with medication regimen PLAN: Left BKA incision is healed today. Continue to wear NEWTON wrap for compression. Will refer him to [facility] for stump skirt trimmer and to be fitted for prosthesis. Encouraged to continue to keep good blood sugar control. Follow up as needed.
== END 2021-07-19 09:08 | disposition home or self-care (01) ==
LOC: WC 08:15
PROVIDERS: Visit Provider Nurse Practitioner Family
DX: Z09 Encounter for follow-up examination after completed treatment for conditions other than malignant neoplasm (principal); Z89.512 Acquired absence of left leg below knee; Z91.14 Patient's other noncompliance with medication regimen; E11.610 Type 2 diabetes mellitus with diabetic neuropathic arthropathy; Z79.4 Long term (current) use of insulin; Z79.899 Other long term (current) drug therapy
CPT/HCPCS: 99213; G0463

== ENCOUNTER 2021-08-18 12:04 | Observation (INO) | payer MEDICAID, SELFPAY ==
[2021-08-18] VITALS (9 sets, daily range): BP systolic 112–134; BP diastolic 74–89; PULSE 73–108; RESP 17–19; TEMP 36.1–37.2; O2SAT 94–99; BMI 28.7; BMI 25.4
--- NOTE | 2021-08-18 12:18 | CT_ITS ---
STUDY: CT BRAIN WITHOUT CONTRAST REASON FOR EXAM: Male, 61 years old. Right arm weakness RADIATION DOSAGE (If Supplied By Facility): CTDIvol = ( 44.99 ) mGy, DLP = ( 812.98 ) mGycm TECHNIQUE: Transaxial CT imaging of the brain was performed without administration of intravenous contrast material. Individualized dose optimization techniques were used for this CT. COMPARISON: Comparison is made with prior study dated 09/08/2020. FINDINGS: Normal soft tissue structures. Normal calvarium. There is mild cerebral atrophy with widening of the extra-axial spaces and ventricular dilatation. Normal white matter tracts of the cerebral hemispheres. Normal basal ganglia and thalami. Normal brainstem. Normal cerebellum. There is no intracranial hemorrhage. There are no findings of an acute ischemic infarction. Normal visualized paranasal sinuses. CT/Brain/Head without Contrast IMPRESSION: Chronic involutional changes of the brain. Electronically Signed: Gustavo Lezama MD at 12:56 EDT , Service support ,
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
[2021-08-18 12:30] LABS: Absolute Neutrophil Count 5.5 X10^3/uL (2.0-7.7); Basophil# 0.05 X10^3/uL; Basophil% 0.6 % (0-1); Eosinophil# 0.16 X10^3/uL; Hematocrit 46.1 % (40-54); Hemoglobin 15.1 g/dL (13.0-16.5); Lymphocyte % 21.3 % (19-41); Mean Corp Hgb Conc 32.8 g/dL (32-36); Mean Corpuscular Hgb 28.8 pg (27.0-32.0); Mean Corpuscular Volume 87.8 fL (80-94); Mean Platelet Vol. 10.1 fl (6.2-12.0); Monocyte# 0.55 X10^3/uL; Monocyte% 6.9 % (0-10); NRBC Flagged by Analyzer 0 % (0-5); Neutrophil # 5.48 X10^3/uL (2.7-7.7); Neutrophil % 68.4 % (47-70); Platelet Count 321 K/mm3 (150-450); RBC Distribution Width CV 12.7 % (11.6-14.6); Red Blood Count 5.25 M/mm3 (4.6-6.2)
[2021-08-18] MEDS: 0.9% Normal Saline 1,000 ML 150 ML IV ×2 (12:31→18:04)
[2021-08-18 12:40] LABS: Anion Gap 9 (5-15); BUN 14 mg/dL (7-18); BUN/Creat Ratio 13.2 RATIO (10-20); Calcium,Total 9.1 mg/dL (8.5-10.1); Chloride 98 mmol/L (98-107); Creatinine, Serum 1.06 mg/dL (0.70-1.30); EST Glomerular Filtration Rate 75 mL/min (>60); Est Glom Filt Rate - Afr Amer 91 mL/min (>60); Estimated Creatinine Clearance 74.61 ml/min; Glucose 402 mg/dL (74-106); Potassium 4.2 mmol/L (3.5-5.1); Sodium Level 135 mmol/L (136-145)
--- NOTE | 2021-08-18 13:51 | MRI_ITS ---
STUDY: MRI BRAIN WITHOUT CONTRAST REASON FOR EXAM: Male, 61 years old. Right arm weakness, rt arm pain TECHNIQUE: Standardized multiplanar fat and water weighted pulse sequences were obtained. COMPARISON: CT of the brain 08/18/2021 FINDINGS: Mild cortical atrophy for the patient''s age. Normal white matter tracts of the supratentorial brain. Normal bilateral basal ganglia. Normal thalami. There is no extra-axial fluid accumulation. Normal flow voids within the major intracranial circulation suggesting patency by spin echo criteria. Normal sella turcica, pituitary gland, infundibular stalk, optic chiasm and hypothalamus. Normal tectal plate and pineal gland. Normal midbrain, rg and medulla. Normal cerebellum. Normal basal cisterns. Normal bilateral temporal bones. Normal bilateral internal auditory canals. Postsurgical changes of the orbits.. Normal visualized paranasal sinuses. Normal calvarium and skull base. Normal visualized soft tissue structures. Normal visualized upper cervical spine. MRI/Brain without Contrast IMPRESSION: Mild cortical atrophy. No significant white matter disease or evidence for acute infarct Electronically Signed: Juan Carlos Lawson MD at 21:19 EDT , Service support ,
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
[2021-08-18 14:48] LABS: Troponin-I HS 6 pg/mL (3.0-78.0)
[2021-08-18 16:19] LABS: Troponin-I HS 6 pg/mL (3.0-78.0)
[2021-08-18 17:31] LABS: Bedside Glucose 399 mg/dL (70-110)
[2021-08-18] MEDS: Insulin Lispro 100 UNIT/ML INSULN.PEN 8 UNIT SC (18:03)
[2021-08-18] MEDS: Insulin Lispro 100 UNIT/ML INSULN.PEN SC (18:03)
[2021-08-18 19:01] LABS: Troponin-I HS 5 pg/mL (3.0-78.0)
[2021-08-18] MEDS: Morphine 2 MG/ML Syringe IV (19:18)
--- NOTE | 2021-08-18 19:29 | NURSING ---
Unable to complete NIH when due 08/18/21 at 1911 due to patient being off the floor getting MRI. NIH will be completed when patient returns to the unit.
--- NOTE | 2021-08-18 20:16 | PCS.PANDOC ---
PANDEMIC DOCUMENTATION INITIATED: Date: 06/14/2021 Time: 190
[2021-08-18 21:45] LABS: Bedside Glucose 171 mg/dL (70-110)
[2021-08-18] MEDS: Atorvastatin Calcium 40 MG Tablet PO (21:45)
[2021-08-19] VITALS (11 sets, daily range): BP systolic 109–131; BP diastolic 52–86; PULSE 73–159; RESP 16–18; TEMP 36.4–37.2; O2SAT 94–100
[2021-08-19] MEDS: 0.9% Normal Saline 1,000 ML 150 ML IV ×3 (02:07→18:27)
[2021-08-19 06:10] LABS: Absolute Lymphocyte Count 2.11 X10^3/uL (0.83-4.51); Absolute Neutrophil Count 4.9 X10^3/uL (2.0-7.7); Basophil# 0.04 X10^3/uL; Basophil% 0.5 % (0-1); Eosinophil# 0.23 X10^3/uL; Eosinophils% 2.9 % (0-5); Hematocrit 41.3 % (40-54); Hemoglobin 13.3 g/dL (13.0-16.5); Lymphocyte # 2.11 X10^3/ul (0.83-4.51); Lymphocyte % 26.4 % (19-41); Mean Corp Hgb Conc 32.2 g/dL (32-36); Mean Corpuscular Hgb 28.4 pg (27.0-32.0); Mean Corpuscular Volume 88.2 fL (80-94); Mean Platelet Vol. 10.6 fl (6.2-12.0); Monocyte% 8.8 % (0-10); NRBC Flagged by Analyzer 0 % (0-5); Neutrophil # 4.86 X10^3/uL (2.7-7.7); Neutrophil % 60.9 % (47-70); Platelet Count 252 K/mm3 (150-450); RBC Distribution Width CV 12.8 % (11.6-14.6); Red Blood Count 4.68 M/mm3 (4.6-6.2)
[2021-08-19 06:56] LABS: Anion Gap 9 (5-15); BUN 20 mg/dL (7-18); BUN/Creat Ratio 23.8 RATIO (10-20); Calcium,Total 8.9 mg/dL (8.5-10.1); Chloride 101 mmol/L (98-107); Cholesterol 155 mg/dL (200); Creatinine, Serum 0.84 mg/dL (0.70-1.30); EST Glomerular Filtration Rate 98 mL/min (>60); Est Glom Filt Rate - Afr Amer 119 mL/min (>60); Estimated Creatinine Clearance 94.15 ml/min; Glucose 295 mg/dL (74-106); High Density Lipoprotein 29 mg/dL; Magnesium 2.3 mg/dL (1.6-2.6); Phosphorus 2.8 mg/dL (2.5-4.9); Potassium 4.1 mmol/L (3.5-5.1); Sodium Level 135 mmol/L (136-145); Triglycerides 186 mg/dL; Very Low Density Lipoprotein 37 mg/dL (5-40)
[2021-08-19] MEDS: Enoxaparin 40 MG/0.4 ML Syringe SC (08:23)
[2021-08-19] MEDS: Insulin Lispro 100 UNIT/ML INSULN.PEN SC ×3 (08:23→18:26)
[2021-08-19] MEDS: Insulin Lispro 100 UNIT/ML INSULN.PEN 8 UNIT SC ×3 (08:24→18:26)
[2021-08-19 08:30] LABS: Bedside Glucose 369 mg/dL (70-110)
[2021-08-19] MEDS: diazePAM 5 MG Tablet PO (08:54)
--- NOTE | 2021-08-19 09:00 | MRI_ITS ---
STUDY: MRI CERVICAL SPINE WITH AND WITHOUT CONTRAST REASON FOR EXAM: Male, 61 years old. Previous surgery, RIGHT arm weakness and pain TECHNIQUE: Standardized fat and water weighted pulse sequences were obtained in the sagittal and axial following administration of IV 18ml Dotarem. COMPARISON: CT 08/06/2019 FINDINGS: Normal foramen magnum and brainstem-cervical cord junction. Normal craniovertebral junction. Normal anterior atlantoaxial articulation. Normal odontoid process. Normal cervical lordosis. Normal vertebral bodies and posterior osseous elements. C2-3: Small central disc protrusion produces moderate spinal stenosis with abutment of the central spinal cord. C3-4: Moderate broad disc osteophyte complex produces severe spinal stenosis with effacement of the central spinal cord and mild bilateral neural foraminal stenosis. C4-5: Moderate broad disc osteophyte complex produces moderate spinal stenosis with abutment of the spinal cord and mild bilateral neural foraminal stenosis. C5-6: Status post anterior cervical discectomy and fusion with anatomic alignment with no spinal stenosis or neural foraminal stenosis. C6-7: Status post anterior cervical discectomy and fusion with anatomic alignment with no spinal stenosis or neural foraminal stenosis. C7-T1: Normal endplates. Normal disc height, signal and morphology. Normal central canal and intervertebral neural foramina. Normal cervical cord. Normal visualized soft tissue structures. MRI/Spine Cervical W/WO Contrast IMPRESSION: Interval anterior cervical discectomy and fusion from C5 through C7 with development of degenerative disc disease at C3/C4 and C4/C5. Electronically Signed: David Lloyd MD at 11:04 EDT Tel , Service support ,
[2021-08-19] MEDS: 0.9% Saline Lock 10 ML Syringe IV (09:20)
[2021-08-19] MEDS: Morphine 2 MG/ML Syringe IV (09:20)
[2021-08-19] MEDS: Metoprolol Tartrate 25 MG Tablet 12.5 MG PO ×2 (13:01→21:26)
[2021-08-19] MEDS: Glucerna Shake 120 ML LIQUID PO (13:04)
--- NOTE | 2021-08-19 14:16 | CASEMGMT ---
Addendum entered by Sandra Mcdaniel 08/19/21 16:18: Call to [facility] to check on referral and message left for them to call this RN GARRICK back. Isabella MARSH CM Original Note: Per therapy, pt would benefit from therapy and aide at home. Pt is agreeable and states would like [facility] as he has had them in the recent past. Referral faxed to [facility]. GARRICK to follow. Isabella MARSH CM
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
[2021-08-19 15:46] LABS: Bedside Glucose 294 mg/dL (70-110)
[2021-08-19 17:20] LABS: Bedside Glucose 314 mg/dL (70-110)
--- NOTE | 2021-08-19 18:10 | RAD_ITS ---
STUDY: X-RAY - RIGHT SHOULDER REASON FOR EXAM: Male, 61 years old. pain TECHNIQUE: 4 view(s) of the shoulder. COMPARISON: None. FINDINGS: Normal glenohumeral articulation. There is degenerative arthrosis of the acromioclavicular joint without inferior osseous spur formation. Normal acromion. Normal humeral head and visualized proximal humerus. The soft tissue structures are unremarkable. Normal visualized pulmonary apex. RAD/Shoulder min 2 Views IMPRESSION: Mild acromioclavicular joint arthrosis. Electronically Signed: David Lloyd MD at 16:51 EDT Tel , Service support ,
[2021-08-19 21:16] LABS: Bedside Glucose 264 mg/dL (70-110)
[2021-08-19] MEDS: Atorvastatin Calcium 40 MG Tablet PO (21:24)
[2021-08-19] MEDS: cycloBENZAPRine HCl 10 MG Tablet PO (21:37)
[2021-08-20] MEDS: 0.9% Normal Saline 1,000 ML 150 ML IV (00:29)
[2021-08-20 02:42] VITALS: BP 132/76; PULSE 74; RESP 16; TEMP 36.8; O2SAT 95
[2021-08-20 03:00] VITALS: PULSE 75
[2021-08-20] MEDS: cycloBENZAPRine HCl 10 MG Tablet PO (06:00)
[2021-08-20 06:49] LABS: Absolute Lymphocyte Count 1.89 X10^3/uL (0.83-4.51); Absolute Neutrophil Count 6.1 X10^3/uL (2.0-7.7); Basophil# 0.05 X10^3/uL; Basophil% 0.6 % (0-1); Eosinophil# 0.21 X10^3/uL; Eosinophils% 2.4 % (0-5); Hematocrit 40.4 % (40-54); Hemoglobin 13.2 g/dL (13.0-16.5); Lymphocyte # 1.89 X10^3/ul (0.83-4.51); Lymphocyte % 21.2 % (19-41); Mean Corp Hgb Conc 32.7 g/dL (32-36); Mean Corpuscular Hgb 28.6 pg (27.0-32.0); Mean Corpuscular Volume 87.6 fL (80-94); Mean Platelet Vol. 11.2 fl (6.2-12.0); Monocyte# 0.66 X10^3/uL; Monocyte% 7.4 % (0-10); NRBC Flagged by Analyzer 0 % (0-5); Neutrophil # 6.06 X10^3/uL (2.7-7.7); Neutrophil % 67.7 % (47-70); POSITIVE COUNT YES; Platelet Count 237 K/mm3 (150-450); RBC Distribution Width CV 12.7 % (11.6-14.6); RBC Distribution Width SD 40.8 fl (35.1-43.9); Red Blood Count 4.61 M/mm3 (4.6-6.2); White Blood Count 8.9 K/mm3 (4.4-11.0)
[2021-08-20 06:53] LABS: Differential Indicated SCAN CRITERIA MET
[2021-08-20 07:08] LABS: Anion Gap 5 (5-15); BUN 24 mg/dL (7-18); BUN/Creat Ratio 28.3 RATIO (10-20); Calcium,Total 8.9 mg/dL (8.5-10.1); Chloride 105 mmol/L (98-107); Creatinine, Serum 0.85 mg/dL (0.70-1.30); EST Glomerular Filtration Rate 97 mL/min (>60); Est Glom Filt Rate - Afr Amer 118 mL/min (>60); Estimated Creatinine Clearance 93.04 ml/min; Glucose 267 mg/dL (74-106); Sodium Level 136 mmol/L (136-145)
[2021-08-20 07:15] VITALS: O2SAT 95
[2021-08-20 07:17] LABS: Differential Comment SCANNED
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
[2021-08-20 07:38] VITALS: PULSE 76
--- NOTE | 2021-08-20 07:53 | CT_ITS ---
STUDY: CT CERVICAL SPINE WITHOUT CONTRAST REASON FOR EXAM: Male, 61 years old. Right upper extremity weakness, prior cervical fusion. RADIATION DOSAGE (If Supplied By Facility): CTDIvol = ( 23.86 ) mGy, DLP = ( 537.87 ) mGycm TECHNIQUE: High resolution transaxial imaging was performed without contrast material. Sagittal and coronal images were reconstructed. Individualized dose optimization techniques were used for this CT. COMPARISON: Comparison is made with prior examination dated 08/06/2019. FINDINGS: Normal craniovertebral junction. Normal anterior atlantoaxial articulation. Normal odontoid process. There is straightening of the normal cervical lordosis. Normal vertebral bodies and posterior osseous elements. C2-3: Minimal anterior listhesis of C2 on C3 most likely secondary to facet joint osteoarthritis worse on the right side. Moderate degree of right neural foraminal stenosis. C3-4: Minimal anterior listhesis of C3 on C4. Facet joint osteoarthritis worse on the left side. Mild degree of bilateral neural foraminal stenosis. C4-5: Minimal anterior spondylosis. Mild degree of central canal stenosis. C5-6: The patient is status post anterior fusion. There is loss of the disc space. Bilateral neural foraminal stenosis. C6-7: Status post anterior fusion. Mild degree of spondylosis and uncovertebral arthrosis. No significant stenosis is seen. C7-T1: Normal endplates. Normal disc height and morphology. Normal central canal and intervertebral neuroforamina. Normal visualized soft tissue structures. CT/Spine Cervical without Contras IMPRESSION: Status post anterior fusion at the C5-C6 and C6-C7 levels. Multilevel bilateral neural foraminal stenosis as described. Electronically Signed: Gustavo Lezama MD at 8:38 EDT , Service support ,
[2021-08-20 09:11] VITALS: BP 129/83; PULSE 84; RESP 16; TEMP 36.8; O2SAT 98
[2021-08-20] MEDS: Insulin Lispro 100 UNIT/ML INSULN.PEN SC ×2 (09:24→11:38)
[2021-08-20] MEDS: Enoxaparin 40 MG/0.4 ML Syringe SC (09:26)
[2021-08-20 09:31] LABS: Bedside Glucose 301 mg/dL (70-110)
[2021-08-20] MEDS: dexAMETHasone 4 MG/ML Vial IV (09:34)
[2021-08-20] MEDS: Insulin Lispro 100 UNIT/ML INSULN.PEN 8 UNIT SC ×2 (09:34→11:39)
[2021-08-20] MEDS: Gabapentin 100 MG Capsule PO ×2 (09:34→11:46)
[2021-08-20] MEDS: 0.9% Saline Lock 10 ML Syringe IV (09:39)
--- NOTE | 2021-08-20 10:30 | PCM.DC ---
Discharge Instructions Diet Discharge Diet: Carb Control Diet Activity Discharge Activity: Return to Normal Activity Dressing / Incision Call your doctor if you observe: Shortness of breath, Dizziness and Chest pain Follow Up Care Test Results: Test results from this visit will be discussed in further detail at your follow-up appointment, if applicable. Discharge Plan Admission Admit Date/Time: 08/18/21 13:51 Primary Reason for Your Visit: Right arm weakness Attending Provider: Fiorella Augustine Primary Care Provider: Care Physician,No Primary Consulting Providers: Juan Carlos Reagan Discharge Orders/Prescriptions Prescriptions: New gabapentin 100 mg Capsule 100 mg PO TIDCM Qty: 90 RF: 0 metoprolol tartrate 25 mg Tablet 12.5 mg PO BID Qty: 60 RF: 0 Continued Lantus Solostar U-100 Insulin 100 unit/mL (3 mL) insulin pen 50 unit SC QHS RF: 0 Changed insulin lispro [Humalog KwikPen Insulin] 100 unit/mL insulin pen 15 unit SUBCUT TIDCM Qty: 0 RF: 0 Referrals / Follow Up: Juan Carlos Reagan DO [STAFF PHYSICIAN] - In 1 Week Care Physician,No Primary [Primary Care Provider] - In 1 Week Disposition Disposition (needs filled in before D/C Order can be placed): Home Health Service
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
--- NOTE | 2021-08-20 10:50 | CASEMGMT ---
Addendum entered by Sandra Mcdaniel 08/20/21 12:11: Call from [facility] and they state they can accept pt but are unable to provide aide at this time. They state they will do start of care beginning next week. Pt states was going to call [facility] CM about getting aides set up anyway. Pt voices no further questions/concerns/needs. Isabella MARSH CM Original Note: Call to [facility] and per Yumiko, they cannot accept pt at this time. Pt states no preference for [facility] so referral faxed to [facility] to [facility]. CM to follow. Isabella MARSH CM
[2021-08-20 11:39] VITALS: BP 110/58; PULSE 79
[2021-08-20] MEDS: Metoprolol Tartrate 25 MG Tablet 12.5 MG PO (11:39)
[2021-08-20 12:56] LABS: Bedside Glucose 355 mg/dL (70-110)
== END 2021-08-20 10:32 | disposition home health service (06) ==
LOC: ED 12:27 → PCU 14:12
PROVIDERS: Nurse Practitioner Family; Admitting Provider Internal Medicine; Emergency Provider Emergency Medicine; Visit Provider Internal Medicine
DX: R29.898 Other symptoms and signs involving the musculoskeletal system (principal); M50.121 Cervical disc disorder at C4-C5 level with radiculopathy; Z23 Encounter for immunization; I47.1 Supraventricular tachycardia; J44.9 Chronic obstructive pulmonary disease, unspecified; I25.2 Old myocardial infarction; E11.65 Type 2 diabetes mellitus with hyperglycemia; Z79.4 Long term (current) use of insulin; Z89.512 Acquired absence of left leg below knee; Z86.718 Personal history of other venous thrombosis and embolism; Z87.891 Personal history of nicotine dependence; Z86.711 Personal history of pulmonary embolism; Z86.14 Personal history of Methicillin resistant Staphylococcus aureus infection
CPT/HCPCS: 36415; 70450; 70551; 72125; 72156; 73030; 80048; 80061; 82962; 83735; 84100; 84484; 85025; 96361; 96372; 96374; 96375; 96376; 97162; 97166; 97530; 97802; 99218; 99284; A9575; J7030; 90686; A4216; G0378

== ENCOUNTER 2021-11-22 11:15 | Outpatient (RCR) | payer MEDICAID, SELFPAY | END 2021-11-29 23:59 | LOC: DC 11:15 | PROVIDERS: PCP Internal Medicine; Visit Provider Nurse Practitioner Family | DX: E11.9 Type 2 diabetes mellitus without complications (principal); Z71.3 Dietary counseling and surveillance | CPT/HCPCS: 97802; G0108 ==

== ENCOUNTER 2021-12-20 17:06 | Emergency (ER) | payer MEDICAID, SELFPAY ==
[2021-12-20 17:09] VITALS: BP 145/83; PULSE 99; RESP 22; TEMP 36.9; O2SAT 100; BMI 28.0
[2021-12-20 17:11] VITALS: O2SAT 100
--- NOTE | 2021-12-20 17:40 | RAD_ITS ---
STUDY: XR Shoulder Min 2 Views REASON FOR EXAM: Male, 61 years old. PAIN TECHNIQUE: XR Shoulder Min 2 Views COMPARISON: None. FINDINGS: Normal glenohumeral articulation. There is degenerative arthrosis of the acromioclavicular joint without inferior osseous spur formation. Normal acromion. Normal humeral head and visualized proximal humerus. The soft tissue structures are unremarkable. Normal visualized pulmonary apex. RAD/Shoulder min 2 Views IMPRESSION: There are no acute findings of the shoulder. Electronically Signed: Kofi Pedro MD at 18:06 EST Reading Location ID and State: [facility]– [place] / [place] , Service support ,
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
[2021-12-20] MEDS: HYDROcodone Bitartrate/Apap 5/325 Tablet PO (17:43)
[2021-12-20 19:07] VITALS: BP 136/88; PULSE 78; RESP 14; O2SAT 95
[2021-12-20 19:26] VITALS: BP 135/78; PULSE 66; RESP 14; TEMP 36.9; O2SAT 98
== END 2021-12-20 19:44 | disposition home or self-care (01) ==
PROVIDERS: Emergency Provider Emergency Medicine; PCP Internal Medicine; Visit Provider Emergency Medicine
DX: S40.011A Contusion of right shoulder, initial encounter (principal); Z89.612 Acquired absence of left leg above knee; J44.9 Chronic obstructive pulmonary disease, unspecified; E11.29 Type 2 diabetes mellitus with other diabetic kidney complication; Z79.4 Long term (current) use of insulin; N28.9 Disorder of kidney and ureter, unspecified; W05.0XXA Fall from non-moving wheelchair, initial encounter; I10 Essential (primary) hypertension; G89.29 Other chronic pain; F32.9 Major depressive disorder, single episode, unspecified; Z87.891 Personal history of nicotine dependence; I25.2 Old myocardial infarction; Z86.711 Personal history of pulmonary embolism; Z86.718 Personal history of other venous thrombosis and embolism; Z86.14 Personal history of Methicillin resistant Staphylococcus aureus infection
CPT/HCPCS: 73030; 99284

== ENCOUNTER 2023-02-28 02:39 | Emergency (ER) | payer MEDICAID, SELFPAY ==
[2023-02-28 02:42] VITALS: BP 137/68; PULSE 89; RESP 18; TEMP 36.9; O2SAT 98; BMI 27.2
--- NOTE | 2023-02-28 02:59 | RAD_ITS ---
EXAM: XR LEFT KNEE, 1 OR 2 VIEWS CLINICAL INDICATION: ? osteo TECHNIQUE: Frontal and/or lateral views of the left knee. COMPARISON: No relevant prior studies available. FINDINGS: BONES/JOINTS: Below knee amputation with mild chronic heterotopic ossification. Tricompartmental degenerative changes. No acute fracture. No subluxation. Normal alignment. No sclerotic or destructive changes observed. SOFT TISSUES: Unremarkable. No soft tissue swelling or gas. No radiopaque foreign body. RAD/Knee 1 or 2 Views IMPRESSION: Below knee amputation with mild chronic heterotopic ossification. No plain film evidence of osteomyelitis. Electronically Signed: Kofi Villagran MD at 3:41 EDT ,
[2023-02-28] MEDS: Fluorescein 1 MG STRIP 1 STRIP RIGHT EYE (03:17)
[2023-02-28] MEDS: Tetracaine 0.5% Ophthalmic Bottle 1 DRP RIGHT EYE (03:17)
--- NOTE | 2023-02-28 04:11 | EDS_ITS ---
HPI History of Present Illness Chief Complaint: Other, Pain/Inj Narrative Narrative: Patient is a 62-year-old male with past medical history of COPD rheumatoid arthritis and type 2 diabetes who presents to the ER with complaint of right eye pain and redness for approximately 1 week as well as multiple skin lesions that have been present for quite some time. He denies any injury or contact lens use. He states the eye has been red irritated and painful for the past 5 to 7 days. He states it is getting to the point where it is cause increased tearing and affecting his vision. As is not resolving he has concern for infection and therefore comes in for evaluation. [facility] Medical History (Updated 03/02/23 @ 23:[address] 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 COPD (chronic obstructive pulmonary disease) Depression Diabetes DVT (deep venous thrombosis) Former smoker Lilibeth-lilibeth disease History of edema History of heart attack History of pulmonary embolism History of transesophageal echocardiography (BUCK) (~03/11/21) Hypertension Infection of left foot Injury of head and neck Insulin dependent diabetes mellitus MRSA (methicillin resistant Staphylococcus aureus) MRSA cellulitis of left foot Normal echocardiogram (~03/08/21) Osteomyelitis of ankle and foot Right arm weakness Right shoulder pain Substance abuse SVT (supraventricular tachycardia) Tachycardia TMJ arthritis Type 2 diabetes mellitus without complications Uses wheelchair Walker as ambulation aid Home Medications insulin glargine 100 unit/mL (3 mL) subcutaneous pen (Lantus Solostar U-100 Insulin) 55 unit (0.55 mL) subcut QHS diabetes 3 months #49.5 mL 09/22/21 [Rx Last Taken Unknown] insulin lispro 100 unit/mL subcutaneous pen (Humalog KwikPen (U-100) Insulin) 20 unit (0.2 mL) subcut TIDCM blood sugar 3 months #54 mL 11/09/21 [Rx Last Taken Unknown] walker #1 ea 12/28/21 [Rx Last Taken Unknown] amoxicillin 875 mg-potassium clavulanate 125 mg tablet 1 tab PO BID #20 tabs 07/12/22 [Rx Last Taken Unknown] Left leg prosthetic #1 ea 07/13/22 [Rx Last Taken Unknown] ciprofloxacin HCl 0.3 % eye drops See Rx Instructions EACH EYE .COMPLEX #10 mL 02/28/23 [Rx Last Taken Unknown] cyclopentolate 2 % eye drops 2 drp RIGHT EYE Q10M PRN PRN Pain 2 doses #15 mL 02/28/23 [Rx Last Taken Unknown] desonide 0.05 % topical cream 1 applic topical TID #60 grams 02/28/23 [Rx Last Taken Unknown] fluconazole 100 mg tablet 100 mg PO DAILY 10 days #10 tabs 02/28/23 [Rx Last Taken Unknown] ketoconazole 2 % shampoo 1 applic topical Q14D #120 mL 02/28/23 [Rx Last Taken Unknown] zinc oxide 25 % topical ointment 1 applic topical TID PRN skin irritation #425 grams 02/28/23 [Rx Last Taken Unknown] Allergy/AdvReac Type Severity Reaction Status Date / Time onion Allergy Food Verified 02/28/23 02:51 Allergy Family History Grandmother Diabetes Surgical History History of appendectomy History of neck surgery Hx of foot surgery (~10/04/20) Hx of LASIK Social History (Updated 12/20/21 @ 17:[address] Floyd Vanessa MD) household members: none Smoking Status: Former smoker alcohol intake: never substance use type: does not use what type of physical activity do you participate in: none ROS ROS ED Constitutional Constitutional ED: Denies chills or fever(s) Eyes Eyes: Reports change in vision and other Details: Positive right eye redness and pain and increased tearing ENT ENT ED: Denies sore throat Cardiovascular Cardiovascular: Denies chest pain Respiratory/Chest Respiratory/Chest: Denies cough or dyspnea Gastrointestinal Gastrointestinal: Denies abdominal pain, diarrhea, nausea or vomiting Genitourinary Genitourinary ED: Denies dysuria Musculoskeletal Musculoskeletal: Denies myalgias Integumentary Reports Abrasions and rash Neurologic Neurologic: Denies headache(s) Hematologic/Lymphatic Hematologic/Lymphatic: Denies easy bleeding or easy bruising EXAM Physical Exam Const Vital Signs: 02/28/23 02:42 02/28/23 02:42 Temperature 98.4 F Temperature Source Temporal Pulse Rate 89 Respiratory Rate 18 Respiratory Pattern Normal Blood Pressure 137/68 H Blood Pressure Mean 91 Pulse Ox 98 Oxygen Delivery Method Room Air Positive well nourished and well developed General Appearance ED: well developed HEENT Reports moist mucous membranes Eyes PERRL and EOMs intact bilaterally Eyes Narrative: Right eye displays diffuse scleral injection that does not cross into the iris. The upper lid was everted there is no foreign body present. There is increased watery clear discharge present. Rivero lamp exam shows circular uptake of dye around the 6 o'clock position consistent with a corneal ulcer. No foreign body. Negative Deja sign. Neck supple Neck Narrative: No nuchal rigidity or meningeal signs present Resp normal respiratory effort Resp Narrative: Patient has diffuse expiratory wheeze consistent with history of COPD but no signs of respiratory distress Cardio regular rate and regular rhythm GI normal to inspection, nondistended, normoactive bowel sounds, non-tender, non- distended and no masses Auscultation: normoactive bowel sounds Palpation: soft Extremity Extremity Narrative: Patient has a below the knee left amputation and along the posterior aspect of the patient's stump there is skin abrasion secondary to his prosthesis without obvious changes to suggest infection such as cellulitis or abscess. No lymphangitic streaking or crepitance noted Neuro oriented x3 and CN's II-XII intact bilaterally Sensorium / Orientation: alert Psych mental status grossly normal Skin Skin Narrative: Patient has erythematous flaky scales across his scalp around his nose and chin and around his mustache and this extends down into the neck and upper chest most consistent with seborrheic dermatitis MDM MDM MDM Narrative Medical decision making narrative: Patient presented to the ER with stable vitals and no signs of respiratory distress. He reported that his rash been present for quite some time and by exam and has characteristic of seborrheic dermatitis and not cellulitis or abs cess or erythema multiforme or Patiño-Miky syndrome. Therefore there is no need for work-up regarding the rash. The patient has an abrasion along the posterior aspect of his left stump which is consistent with the prosthetic rubbing with concern that he could be developing osteomyelitis as he has had this in the past as he has increased pain and x-ray was ordered. This revealed no acute finding. The patient's eye exam showed diffuse scleral injection without foreign body but there is uptake of dye in a circular position consistent with a corneal ulcer. Despite this there is no perforation. He also reports symptoms have been present for 5 to 7 days and therefore do not feel there is need for an emergent ophthalmology evaluation. At this time patient can be placed on antibiotics secondary to the corneal ulcer and given outpatient ophthalmology follow-up he will be given topical barrier cream regarding the rubbing from his prosthesis and secondary to seborrheic dermatitis to be placed on topical and oral medication to help resolve the skin irritation. However as there is no signs of systemic infection or globe injury he is otherwise safe for discharge History & Record Review Discussion w/independent historian: Patient Radiography Diagnostic Testing: Clinical Impression(s) from Imaging Studies Knee X-Ray 02/28/23 02:59 IMPRESSION: Below knee amputation with mild chronic heterotopic ossification. No plain film evidence of osteomyelitis. Electronically Signed: Kofi Villagran MD at 3:41 EDT , Left knee x-ray as interpreted by the emergency medicine physician shows no acute fracture dislocation foreign body or moth-eaten appearance to suggest osteomyelitis Discharge Plan Triage Chief Complaint: Other, Pain/Inj ED Provider: Fredy Orantes Dx/Rx/DC Orders Clinical Impression: Corneal ulcer of right eye, Seborrheic dermatitis, Type 2 diabetes mellitus with diabetic polyneuropathy, COPD (chronic obstructive pulmonary disease) Instructions: Understanding Seborrheic Dermatitis, ED Corneal Ulcer Prescriptions: New ciprofloxacin HCl 0.3 % drops See Rx Instructions .ROUTE .COMPLEX Qty: 10 1RF Rx Instructions: put 1-2 drops in right eye every 2hr up to 8 times/day x2days; then 4 times/day x5days desonide 0.05 % cream 1 applic topical TID Qty: 60 2RF fluconazole 100 mg tablet 100 mg PO DAILY 10 Days Qty: 10 0RF zinc oxide 25 % ointment 1 applic topical TID PRN (Reason: skin irritation) Qty: 425 1RF cyclopentolate 2 % drops 2 drp RIGHT EYE Q10M PRN PRN (Reason: Pain) Qty: 15 1RF ketoconazole 2 % shampoo 1 applic topical Q14D Qty: 120 0RF No Action Lantus Solostar U-100 Insulin 100 unit/mL (3 mL) insulin pen 55 unit SC QHS 90 Days Qty: 49.5 2RF insulin lispro [Humalog KwikPen Insulin] 100 unit/mL insulin pen 20 unit SUBCUT TIDCM 90 Days Qty: 54 2RF amoxicillin-pot clavulanate 875-125 mg tablet 1 tab PO BID Qty: 20 0RF (DME) Left leg prosthetic See Rx Instructions .Route .MEDSUPPLY Qty: 1 0RF Rx Instructions: As directed (DME) walker Misc See Rx Instructions .ROUTE .MEDSUPPLY Qty: 1 0RF Rx Instructions: As directed Primary Care Provider: Kaylen Horton Referrals: Kaylen Horton MD [Primary Care Provider] - Stacey Trejo MD [Med Staff - Active Staff] - Activity Restrictions/Additional Instructions: Please follow-up with ophthalmology regarding the ulcer in your right eye and take the medications as directed to help prevent infection in the eye and resolve the rash on your scalp and body. Please return to the ER should you have any further concerns Disposition Disposition: Home, Self Care Discharge Date/Time: 02/28/23 05:09
[2023-02-28 04:32] VITALS: BP 149/82; PULSE 84; RESP 18; O2SAT 95
--- NOTE | 2023-02-28 05:09 | ED.RN ---
pt states a friend called a taxi for his ride home. awaiting taxi
== END 2023-02-28 05:09 | disposition home or self-care (01) ==
PROVIDERS: Emergency Provider Emergency Medicine; PCP Internal Medicine; Visit Provider Emergency Medicine
DX: H16.001 Unspecified corneal ulcer, right eye (principal); Z89.512 Acquired absence of left leg below knee; M06.9 Rheumatoid arthritis, unspecified; J44.9 Chronic obstructive pulmonary disease, unspecified; E11.42 Type 2 diabetes mellitus with diabetic polyneuropathy; Z79.4 Long term (current) use of insulin; L21.9 Seborrheic dermatitis, unspecified; I10 Essential (primary) hypertension; Z79.899 Other long term (current) drug therapy; Z87.891 Personal history of nicotine dependence
CPT/HCPCS: 73560; 99285

== ENCOUNTER 2023-03-16 15:25 | Emergency (ER) | payer MEDICAID, SELFPAY ==
[2023-03-16 15:26] VITALS: BP 124/71; PULSE 104; RESP 18; TEMP 36.8; O2SAT 99
--- NOTE | 2023-03-16 17:17 | EX.ED.DYSGE1 ---
HPI History of Present Illness Chief Complaint: Wound [facility] Medical History (Updated 03/16/23 @ 17:[address] 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 COPD (chronic obstructive pulmonary disease) Depression Diabetes DVT (deep venous thrombosis) Former smoker Lilibeth-lilibeth disease History of edema History of heart attack History of pulmonary embolism History of transesophageal echocardiography (BUCK) (~03/11/21) Hypertension Infection of left foot Injury of head and neck Insulin dependent diabetes mellitus MRSA (methicillin resistant Staphylococcus aureus) MRSA cellulitis of left foot Normal echocardiogram (~03/08/21) Osteomyelitis of ankle and foot Right arm weakness Right shoulder pain Substance abuse SVT (supraventricular tachycardia) Tachycardia TMJ arthritis Type 2 diabetes mellitus without complications Uses wheelchair Walker as ambulation aid Home Medications insulin glargine 100 unit/mL (3 mL) subcutaneous pen (Lantus Solostar U-100 Insulin) 55 unit (0.55 mL) subcut QHS diabetes 3 months #49.5 mL 09/22/21 [Rx Last Taken Unknown] insulin lispro 100 unit/mL subcutaneous pen (Humalog KwikPen (U-100) Insulin) 20 unit (0.2 mL) subcut TIDCM blood sugar 3 months #54 mL 11/09/21 [Rx Last Taken Unknown] walker #1 ea 12/28/21 [Rx Last Taken Unknown] amoxicillin 875 mg-potassium clavulanate 125 mg tablet 1 tab PO BID #20 tabs 07/12/22 [Rx Last Taken Unknown] Left leg prosthetic #1 ea 07/13/22 [Rx Last Taken Unknown] ciprofloxacin HCl 0.3 % eye drops See Rx Instructions EACH EYE .COMPLEX #10 mL 02/28/23 [Rx Last Taken Unknown] cyclopentolate 2 % eye drops 2 drp RIGHT EYE Q10M PRN PRN Pain 2 doses #15 mL 02/28/23 [Rx Last Taken Unknown] desonide 0.05 % topical cream 1 applic topical TID #60 grams 02/28/23 [Rx Last Taken Unknown] fluconazole 100 mg tablet 100 mg PO DAILY 10 days #10 tabs 02/28/23 [Rx Last Taken Unknown] ketoconazole 2 % shampoo 1 applic topical Q14D #120 mL 02/28/23 [Rx Last Taken Unknown] zinc oxide 25 % topical ointment 1 applic topical TID PRN skin irritation #425 grams 02/28/23 [Rx Last Taken Unknown] sulfamethoxazole 800 mg-trimethoprim 160 mg tablet (Bactrim DS) 1 tab PO BID 7 days #14 tabs 03/16/23 [Rx Last Taken Unknown] Allergy/AdvReac Type Severity Reaction Status Date / Time onion Allergy Food Verified 02/28/23 02:51 Allergy Family History Grandmother Diabetes Surgical History History of appendectomy History of neck surgery Hx of foot surgery (~10/04/20) Hx of LASIK Social History (Updated 12/20/21 @ 17:[address] Floyd Vanessa MD) household members: none Smoking Status: Former smoker alcohol intake: never substance use type: does not use what type of physical activity do you participate in: none EXAM Physical Exam Const Vital Signs: 03/16/23 15:26 Temperature 98.2 F Temperature Source Temporal Pulse Rate 104 H Respiratory Rate 18 Blood Pressure 124/71 H Blood Pressure Mean 88 Pulse Ox 99 Oxygen Delivery Method Room Air MDM MDM MDM Narrative Medical decision making narrative: HISTORY OF PRESENT ILLNESS: 62-year-old male here for head wound. Notes that started several days ago he states he is got redness and pain to his posterior scalp. Denies any recent trauma. Denies any vomiting or fever. States the pain is worse with palpation and improved by rest. Denies any neck stiffness. REVIEW OF SYSTEMS: Pertinent positives: Head wound Pertinent negatives: Fever, vomiting PHYSICAL EXAM: Nursing triage notes reviewed, Vital signs reviewed Constitutional: please see mdm HENT: MMM Skin: 2 x 2 area of redness, pain, warmth, there is an abrasion/scab noted to the posterior scalp, no crepitus, no bullae, no fluctuance or induration MEDICAL DECISION MAKING: Chief Complaint: Wound External records reviewed: Last ED visit in February 2023 for COPD MDM Narrative: I considered the following differential diagnosis: Kerion, cellulitis, folliculitis, skin cancer The acute onset of the patient's symptoms is not suggestive of cancer. There is redness, warmth but no obvious fluctuance induration to suggest abscess. Likely suffering from folliculitis or cellulitis. There is no evidence of kerion on exam. Given antiemetics and antibiotics and discharged with close PCP follow-up for wound recheck. Wound precautions were discussed. I told the patient if this continues and begins to change shape color former border he should get in to dermatology or his PCP for skin biopsy as soon as possible. Factors affecting care: History of hypertension, diabetes, PE, COPD, osteomyelitis, Social determinants of health: Former smoker History obtained from others: None Shared decision making: I will have a discussion with the patient and or visitors regarding risk/benefits of further testing or admission. They will be made aware of of the risk/benefits inherent in this decision they will be given the opportunity to voice understanding. Consults: None Discharge Plan Triage Chief Complaint: Wound ED Provider: Gabriel Atkinson Dx/Rx/DC Orders Clinical Impression: Folliculitis Instructions: ED Folliculitis Prescriptions: New sulfamethoxazole-trimethoprim [Bactrim DS] 800-160 mg tablet 1 tab PO BID 7 Days Qty: 14 0RF No Action Lantus Solostar U-100 Insulin 100 unit/mL (3 mL) insulin pen 55 unit SC QHS 90 Days Qty: 49.5 2RF insulin lispro [Humalog KwikPen Insulin] 100 unit/mL insulin pen 20 unit SUBCUT TIDCM 90 Days Qty: 54 2RF amoxicillin-pot clavulanate 875-125 mg tablet 1 tab PO BID Qty: 20 0RF (DME) Left leg prosthetic See Rx Instructions .Route .MEDSUPPLY Qty: 1 0RF Rx Instructions: As directed ciprofloxacin HCl 0.3 % drops See Rx Instructions .ROUTE .COMPLEX Qty: 10 1RF Rx Instructions: put 1-2 drops in right eye every 2hr up to 8 times/day x2days; then 4 times/day x5days desonide 0.05 % cream 1 applic topical TID Qty: 60 2RF fluconazole 100 mg tablet 100 mg PO DAILY 10 Days Qty: 10 0RF zinc oxide 25 % ointment 1 applic topical TID PRN (Reason: skin irritation) Qty: 425 1RF cyclopentolate 2 % drops 2 drp RIGHT EYE Q10M PRN PRN (Reason: Pain) Qty: 15 1RF ketoconazole 2 % shampoo 1 applic topical Q14D Qty: 120 0RF (DME) walker Misc See Rx Instructions .ROUTE .MEDSUPPLY Qty: 1 0RF Rx Instructions: As directed Primary Care Provider: Kaylen Horton Referrals: Kaylen Horton MD [Primary Care Provider] - Activity Restrictions/Additional Instructions: Thank you for trusting us with your care today! Please take Tylenol (2 pills, 650 mg), ibuprofen (2 pills, 400 mg) every 6 hours as needed for pain and fever control. Please take antibiotics until course complete. Please return to the emergency department if your symptoms change or worsen. Specifically if you develop worsening pain, redness. If you cannot tolerate antibiotics by mouth. Please follow with your primary care physician for further outpatient evaluation and management. If your wound continues after antibiotics changes shape, color or border in any way please follow-up with your primary care physician or dermatology for skin biopsy Disposition Disposition: Home, Self Care
[2023-03-16 17:29] VITALS: BMI 25.9
== END 2023-03-16 17:56 | disposition home or self-care (01) ==
PROVIDERS: Emergency Provider Emergency Medicine; PCP Internal Medicine; Visit Provider Emergency Medicine
DX: L73.9 Follicular disorder, unspecified (principal); J44.9 Chronic obstructive pulmonary disease, unspecified; E11.9 Type 2 diabetes mellitus without complications; Z79.4 Long term (current) use of insulin; I10 Essential (primary) hypertension; Z79.899 Other long term (current) drug therapy; I25.2 Old myocardial infarction; Z86.711 Personal history of pulmonary embolism; Z87.891 Personal history of nicotine dependence
CPT/HCPCS: 99281; 99282

== ENCOUNTER 2023-11-18 21:57 | Emergency (ER) | payer MEDICAID, SELFPAY ==
[2023-11-18 21:58] VITALS: BP 173/153; PULSE 51; RESP 18; TEMP 36.1; O2SAT 97; BMI 28.0
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
[2023-11-18] MEDS: 0.9% Normal Saline (500mL Bag) 500 ML 999 ML IV (22:35)
[2023-11-18 22:44] LABS: Absolute Lymphocyte Count 1.02 X10^3/uL (0.83-4.51); Absolute Neutrophil Count 6.1 X10^3/uL (2.0-7.7); Basophil# 0.04 X10^3/uL; Basophil% 0.5 % (0-1); Eosinophil# 0.19 X10^3/uL; Eosinophils% 2.3 % (0-5); Hematocrit 40.4 % (40-54); Hemoglobin 13.1 g/dL (13.0-16.5); Lymphocyte # 1.02 X10^3/ul (0.83-4.51); Lymphocyte % 12.5 % (19-41); Mean Corp Hgb Conc 32.4 g/dL (32-36); Mean Corpuscular Volume 86.3 fL (80-94); Mean Platelet Vol. 9.8 fl (6.2-12.0); Monocyte# 0.76 X10^3/uL; Monocyte% 9.3 % (0-10); NRBC Flagged by Analyzer 0 % (0-5); Neutrophil # 6.08 X10^3/uL (2.7-7.7); Neutrophil % 74.9 % (47-70); Platelet Count 296 K/mm3 (150-450); RBC Distribution Width SD 40.5 fl (35.1-43.9); Red Blood Count 4.68 M/mm3 (4.6-6.2); White Blood Count 8.1 K/mm3 (4.4-11.0)
[2023-11-18 23:00] VITALS: BP 117/70; PULSE 98; RESP 16; O2SAT 97
[2023-11-18 23:01] LABS: ALB/GLOB Ratio 0.6 RATIO (0.9-2.4); AST(SGOT) 20 U/L (15-37); Alanine Aminotransfer ALT/SGPT 16 U/L (16-61); Albumin, Serum 2.4 g/dL (3.2-5.0); Alkaline Phosphatase 114 U/L (45-117); Anion Gap 6 (5-15); BUN 11 mg/dL (7-18); BUN/Creat Ratio 9.7 RATIO (10-20); Calcium,Total 8.6 mg/dL (8.5-10.1); Chloride 101 mmol/L (98-107); Creatinine, Serum 1.13 mg/dL (0.70-1.30); EST Glomerular Filtration Rate 69 mL/min (>60); Est Glom Filt Rate - Afr Amer 84 mL/min (>60); Globulin 4.2 g/dL (2.2-4.2); Glucose 339 mg/dL (74-106); Potassium 2.9 mmol/L (3.5-5.1); Protein, Total 6.6 g/dL (6.4-8.2); Sodium Level 138 mmol/L (136-145)
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
--- NOTE | 2023-11-18 23:20 | CT_ITS ---
STUDY: CTA HEAD AND NECK WITH CONTRAST REASON FOR EXAM: Male, 63 years old. Weakness and dizziness RADIATION DOSAGE (If Supplied By Facility): CTDIvol = ( 29.66 ) mGy, DLP = ( 1581.91 ) mGycm TECHNIQUE: CT angiography was performed with a multi-detector CT scanner. Data acquisition was obtained from the skull base through the vertex following intravenous administration of IV 100mL [id number]-370. MIP images were reconstructed from the axial data set. Post-processing of the angiographic images was performed, with multiplanar reformation and 3D reconstruction. Individualized dose optimization techniques were used for this CT. COMPARISON: No relevant priors. FINDINGS: Normal bilateral petrous carotid arteries. Normal right cavernous carotid artery with a normal supraclinoid bifurcation. Normal left cavernous carotid artery with a normal supraclinoid bifurcation. There is hypoplastic development of the right A1 segment of the anterior cerebral arteries with an atretic but intact artery. Normal left A1 segments of the anterior cerebral artery. Normal intact anterior communicating artery (ACOM). Normal bilateral A2 segments of the anterior cerebral arteries. Normal right M1 and M2 segments of the middle cerebral arteries, with a normal M1 bifurcation. Normal left M1 and M2 segments of the middle cerebral arteries, with a normal M1 bifurcation. There is a persistent origin of the right posterior cerebral artery with absence of the posterior communicating artery (PCOM). Normal left posterior communicating artery (PCOM). Normal bilateral vertebral arteries. Normal basilar artery with a normal basilar bifurcation. The visualized bilateral superior cerebellar (SCA) arteries are normal. Normal bilateral P1, P2 and visualized P3 segments of the posterior cerebral arteries. There is no demonstrated aneurysm of the [place] of [place]. There is no demonstrated abnormality of the visualized brain. AORTIC ARCH: Normal visualized aortic arch. Normal origins of the brachiocephalic, left common carotid, and left subclavian arteries. RIGHT CAROTID ARTERIES: Normal right common carotid artery (CCA). There is mild atherosclerotic plaque formation with minimal narrowing of the right carotid bulb. There is mild atherosclerotic plaque formation of the origin of the right internal carotid artery with less than 50% cross sectional diameter stenosis. Normal visualized cervical portion of the right internal carotid artery. Normal origin of the right external carotid artery (ECA). LEFT CAROTID ARTERIES: Normal left common carotid artery (CCA). There is mild atherosclerotic plaque formation with minimal narrowing of the left carotid bulb. There is mild atherosclerotic plaque formation of the origin of the left internal carotid artery with less than 50% cross sectional diameter stenosis. Normal visualized cervical portion of the left internal carotid artery. Normal origin of the left external carotid artery (ECA). VERTEBRAL ARTERIES: Normal bilateral vertebral arteries. CT/CTA Head AND Neck W/ Contrast IMPRESSION: Normal CTA Head with contrast. Mild (20%) carotid stenosis bilaterally. Patent vertebral arteries bilaterally. Electronically Signed: David Lloyd MD at 0:01 EST ,
[2023-11-19] VITALS: BP 122/67; PULSE 98; RESP 18; O2SAT 96
[2023-11-19] MEDS: Potassium Chloride Oral Tablet 20 MEQ 40 MEQ PO (00:04)
[2023-11-19] MEDS: Insulin Lispro 100 UNIT/ML INSULN.PEN 12 UNIT SC (00:05)
[2023-11-19 01:07] LABS: Bedside Glucose 303 mg/dL (74-106)
[2023-11-19 01:37] VITALS: BP 111/63; PULSE 89; RESP 24; O2SAT 96
== END 2023-11-19 03:10 | disposition home or self-care (01) ==
PROVIDERS: Emergency Provider Emergency Medicine; Visit Provider Emergency Medicine
DX: R42 Dizziness and giddiness (principal); Z89.612 Acquired absence of left leg above knee; J44.9 Chronic obstructive pulmonary disease, unspecified; E11.65 Type 2 diabetes mellitus with hyperglycemia; E87.6 Hypokalemia; R60.0 Localized edema; F32.A Depression, unspecified; Z87.891 Personal history of nicotine dependence
CPT/HCPCS: 70496; 70498; 80053; 82962; 85025; 93005; 96360; 96361; 99285; J7030; Q9967

== ENCOUNTER 2024-04-24 14:28 | Inpatient (IN) | payer MEDICARE, MEDICAID, SELFPAY ==
[2024-04-24 14:28] VITALS: BP 157/83; PULSE 99; RESP 16; TEMP 36.6; O2SAT 98
--- NOTE | 2024-04-24 14:56 | ED.VIS.LOWEX ---
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 He cannot recall the name of the surgeon to do surgery. He states he developed an infection subsequently requiring a BKA. Patient notes that his right foot has a large blister on the bottom of the foot and on the medial aspect of the foot. He states that he walked outside on the hot concrete and thinks he might of sustained a burn to the foot a few days ago. He states it is hurting more in the skin is reddened. He states he has not seen anybody for this. 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 No systemic signs or symptoms. 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 COPD (chronic obstructive pulmonary disease) Depression Diabetes DVT (deep venous thrombosis) Former smoker Lilibeth-lilibeth disease History of edema History of heart attack History of pulmonary embolism History of transesophageal echocardiography (BUCK) (~03/11/21) Hypertension Infection of left foot Injury of head and neck Insulin dependent diabetes mellitus MRSA (methicillin resistant Staphylococcus aureus) MRSA cellulitis of left foot Normal echocardiogram (~03/08/21) Osteomyelitis of ankle and foot Right arm weakness Right shoulder pain Substance abuse SVT (supraventricular tachycardia) Tachycardia TMJ arthritis Type 2 diabetes mellitus without complications Uses wheelchair Walker as ambulation aid Home Medications ?Medication ?Instructions ?Recorded ?Last Taken ?Type walker #1 ea 12/28/21 Unknown Rx Left leg prosthetic #1 ea 07/13/22 Unknown Rx Allergy/AdvReac Type Severity Reaction Status Date / Time onion Allergy Food Verified 11/18/23 21:58 Allergy Family History Grandmother Diabetes Surgical History History of appendectomy History of neck surgery Hx of foot surgery (~10/04/20) Hx of LASIK Social History household members: none Smoking Status: Former smoker alcohol intake: never substance use type: does not use what type of physical activity do you participate in: none ROS ROS ED Constitutional Constitutional ED: Denies chills, fever(s) or sweats Eyes Eyes: Denies blurry vision or change in vision ENT ENT ED: Denies ear pain or sore throat Cardiovascular Cardiovascular: Denies chest pain, palpitations or racing heartbeat Respiratory/Chest Respiratory/Chest: Denies cough, dyspnea or sputum Gastrointestinal Gastrointestinal: Denies abdominal pain, constipation, diarrhea, nausea or vomiting Genitourinary Genitourinary ED: Denies dysuria, hematuria or urinary frequency Musculoskeletal Musculoskeletal: Denies arthralgias, myalgias or neck pain Integumentary Reports other Details: Right foot pain, blistering. ; Denies abscess, Abrasions or rash Neurologic Neurologic: Denies headache(s), paresthesias or weakness Psychiatric Psychiatric: Denies anxiety, depression, suicidal ideation or suicidal thoughts Endocrine Endocrinology: Denies polydipsia or polyuria Hematologic/Lymphatic Hematologic/Lymphatic: Reports other EXAM Physical Exam Const Vital Signs: 04/24/24 14:28 04/24/24 16:28 Temperature 97.9 F Temperature Source Temporal Pulse Rate 99 81 Respiratory Rate 16 16 Blood Pressure 157/83 H 152/75 H Blood Pressure Mean 107 100 Pulse Ox 98 98 Oxygen Delivery Method Room Air Room Air Positive well nourished HEENT Reports moist mucous membranes normocephalic and atraumatic Resp normal respiratory effort and no retractions Cardio regular rate and regular rhythm Neuro oriented x3 and CN's II-XII intact bilaterally Sensorium / Orientation: alert Motor Exam: strength 5/5 throughout Psych mental status grossly normal Skin Skin Narrative: Appears to be a large blister on the distal portion of the right foot on the palmar plantar surface. There is also appears to be a second blister that extends from the plantar surface of the heel up around the medial aspect of the foot. Also noted to have an erythema on the right great toe medial aspect with a central ulceration. MDM MDM MDM Narrative Medical decision making narrative: 64-year-old male presenting with foot wound. Appears that he either sustained a burn to the foot from the hot concrete he is also known to have diabetic neuropathy and history of MRSA. I did send some pictures via backline to Dr. Gaines who will come see the patient. I obtained a CBC to assess white blood cell count, hemoglobin, platelets. BMP to assess renal function, electrolytes, glucose. ESR and CRP to assess inflammatory markers. Right foot x-ray will be obtained. CBC shows normal white blood cell count 8.4. Hemoglobin 12.8. Platelets are normal at 353. Creatinine slightly elevated today at 1.34. Patient was given IV fluids. Electrolytes unremarkable. CRP elevated at 13.9. ESR 12. X-ray of the right foot shows some soft tissue swelling as well as concern for osteomyelitis of the right first toe on my interpretation. Radiology interprets this and agrees. Dr. Gaines came to evaluate the patient and is going to have bedside debridement of the plantar aspect of the right foot. He recommends admission to the hospital for IV antibiotics and wound care. The plan will be after the patient is admitted he will go to [facility] to recover because he is unable to take care of his foot wounds at home. Discussed with hospitalist for admission. Impression: 1. Foot infection Lab Data Labs: Laboratory Results - last 24 hr 04/24/24 15:08 WBC 8.4 RBC 4.54 L Hgb 12.8 L Hct 39.2 L MCV 86.3 MCH 28.2 MCHC 32.7 RDW Std Deviation 40.8 RDW Coeff of Cheri 13.1 Plt Count 353 MPV 9.7 Immature Gran % (Auto) 0.400 Neut % (Auto) 70.6 H Lymph % (Auto) 17.2 L [place] % (Auto) 7.7 Eos % (Auto) 3.3 Baso % (Auto) 0.8 Absolute Neuts (auto) 5.9 Absolute Lymphs (auto) 1.44 Nucleated RBC % 0 ESR 12 Sodium 139 Potassium 3.4 L Chloride 102 Carbon Dioxide 34.0 H Anion Gap 3 L BUN 26 H Creatinine 1.34 H Est GFR (MDRD) Af Amer 69 Est GFR (MDRD) Non-Af 57 L BUN/Creatinine Ratio 19.4 Glucose 300 H Calcium 8.6 C-React Prot Ext Range 13.90 H Radiography Diagnostic Testing: Clinical Impression(s) from Imaging Studies Foot X-Ray 04/24/24 15:08 IMPRESSION: Diffuse soft tissue swelling. Possible osteomyelitis involving the distal portion of the fifth metatarsal and the base of the posterior pharynx of the fifth toe. Electronically Signed: Gustavo Lezama MD at 15:22 EDT , Discharge Plan Triage Chief Complaint: Wound ED Provider: Rolly Edwards Dx/Rx/DC Orders Prescriptions: No Action (DME) Left leg prosthetic See Rx Instructions .Route .MEDSUPPLY Qty: 1 0RF Rx Instructions: As directed (DME) walker Misc See Rx Instructions .ROUTE .MEDSUPPLY Qty: 1 0RF Rx Instructions: As directed Primary Care Provider: Care Physician,No Primary Referrals: Care Physician,No Primary [Primary Care Provider] - Print Language: Salvadorean
--- NOTE | 2024-04-24 15:08 | RAD_ITS ---
STUDY: X-RAY - RIGHT FOOT CLINICAL: Male, 64 years old. One along the anterior aspect of the great toe. TECHNIQUE: view(s) of the foot. COMPARISON: None. FINDINGS: There is an enthesophyte involving the posterior superior calcaneus at the site of insertion of the Achilles tendon. Normal visualized subtalar, talonavicular, calcaneocuboid, tarsal and tarsometatarsal articulations. Normal metatarsi. Normal metatarsophalangeal joint of the great toe. Normal tibial and fibular sesamoid bones. There is degenerative arthrosis of the interphalangeal joint of the great toe. Normal phalanges of the great toe. Decreased bony attenuation of the distal aspect of the fifth metatarsal and proximal phalanx of the fifth toe. Osteomyelitis should be ruled out. Normal interphalangeal joints and phalanges of the lesser toes. Diffuse soft tissue swelling. RAD/Foot min 3 Views IMPRESSION: Diffuse soft tissue swelling. Possible osteomyelitis involving the distal portion of the fifth metatarsal and the base of the posterior pharynx of the fifth toe. Electronically Signed: Gustavo Lezama MD at 15:22 EDT ,
[2024-04-24 15:22] LABS: Erythrocyte Sedimentation Rate 12 mm/hr (0-20)
[2024-04-24 15:24] LABS: Absolute Lymphocyte Count 1.44 X10^3/uL (0.83-4.51); Absolute Neutrophil Count 5.9 X10^3/uL (2.0-7.7); Basophil# 0.07 X10^3/uL; Basophil% 0.8 % (0-1); Eosinophil# 0.28 X10^3/uL; Eosinophils% 3.3 % (0-5); Hematocrit 39.2 % (40-54); Hemoglobin 12.8 g/dL (13.0-16.5); Lymphocyte # 1.44 X10^3/ul (0.83-4.51); Lymphocyte % 17.2 % (19-41); Mean Corp Hgb Conc 32.7 g/dL (32-36); Mean Corpuscular Hgb 28.2 pg (27.0-32.0); Mean Corpuscular Volume 86.3 fL (80-94); Mean Platelet Vol. 9.7 fl (6.2-12.0); Monocyte# 0.64 X10^3/uL; Monocyte% 7.7 % (0-10); NRBC Flagged by Analyzer 0 % (0-5); Neutrophil % 70.6 % (47-70); Platelet Count 353 K/mm3 (150-450); RBC Distribution Width CV 13.1 % (11.6-14.6); RBC Distribution Width SD 40.8 fl (35.1-43.9); Red Blood Count 4.54 M/mm3 (4.6-6.2); White Blood Count 8.4 K/mm3 (4.4-11.0)
[2024-04-24 15:31] LABS: Anion Gap 3 (5-15); BUN 26 mg/dL (7-18); BUN/Creat Ratio 19.4 RATIO (10-20); Calcium,Total 8.6 mg/dL (8.5-10.1); Chloride 102 mmol/L (98-107); Creatinine, Serum 1.34 mg/dL (0.70-1.30); EST Glomerular Filtration Rate 57 mL/min (>60); Est Glom Filt Rate - Afr Amer 69 mL/min (>60); Glucose 300 mg/dL (74-106); Potassium 3.4 mmol/L (3.5-5.1); Sodium Level 139 mmol/L (136-145)
[2024-04-24 16:28] VITALS: BP 152/75; PULSE 81; RESP 16; O2SAT 98
[2024-04-24] MEDS: 0.9% Normal Saline (1000mL) 1,000 ML 999 ML IV (16:32)
--- NOTE | 2024-04-24 17:05 | PCM.HP.STD ---
HPI - General General Date of Admission: 04/24/24 Date of Service: 04/24/24 Chief Complaint: Second-degree burn to the right foot HPI Narrative LIZETH BURGOS, is a 64 M who presents to the emergency room at [facility] with complaints of blister formation on his right foot-plantar surface-since he stepped on hot concrete several days ago barefoot. Patient has an extensive medical history and is noncompliant with any medications, he does not take anything for his type 2 diabetes. He told me that 5 doctors have tried to treat his diabetes and bring his blood sugars under control but they have not been successful. Patient has a history of noncompliance in his medical record. Patient had a below the knee amputation on the left in the past and was at [facility]. Podiatry saw the patient in the ER and debrided the blisters, skin underneath looks pink without purulent discharge. The plan was for the patient to return home but he cannot take care of the wound on his right foot and podiatry recommended that the patient be admitted for further care and patient has agreed to placement in a retirement facility for further care. Workup in the emergency room included a foot x-ray which showed possible osteomyelitis involving the distal portion of the right fifth metatarsal and the base of the posterior phalanx of the fifth toe. Patient does not have any visible abnormality on his foot that would correspond to this area.\ CBC was abnormal for hemoglobin 12.8, white blood cell count was normal, chemistry profile was remarkable for potassium of 3.4, creatinine of 1.34, BUN of 26, and a glucose of 300. Patient will be admitted to [place] [address], he will be given IV vancomycin and IV Ancef, cultures were obtained by podiatry at the time of the encounter in the ER, he will be seen by the wound care nurse. 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 COPD (chronic obstructive pulmonary disease) Depression Diabetes DVT (deep venous thrombosis) Former smoker Lilibeth-lilibeth disease History of edema History of heart attack History of pulmonary embolism History of transesophageal echocardiography (BUCK) (~03/11/21) Hypertension Infection of left foot Injury of head and neck Insulin dependent diabetes mellitus MRSA (methicillin resistant Staphylococcus aureus) MRSA cellulitis of left foot Normal echocardiogram (~03/08/21) Osteomyelitis of ankle and foot Right arm weakness Right shoulder pain Substance abuse SVT (supraventricular tachycardia) Tachycardia TMJ arthritis Type 2 diabetes mellitus without complications Uses wheelchair Walker as ambulation aid Home Medications ?Medication ?Instructions ?Recorded ?Last Taken ?Type walker #1 ea 12/28/21 Unknown Rx Left leg prosthetic #1 ea 07/13/22 Unknown Rx Allergy/AdvReac Type Severity Reaction Status Date / Time onion Allergy Food Verified 11/18/23 21:58 Allergy Family History Grandmother Diabetes Surgical History History of appendectomy History of neck surgery Hx of foot surgery (~10/04/20) Hx of LASIK Social History household members: none Smoking Status: Former smoker alcohol intake: never substance use type: does not use what type of physical activity do you participate in: none ROS Constitutional Constitutional: Denies anorexia, change in weight, chills, fatigue, fever(s), night sweats or weakness Eyes Eyes: Denies blurry vision, change in vision, discharge from eye(s) or eye pain Cardiovascular Cardiovascular: Denies chest pain, claudication, edema or palpitations Respiratory/Chest Respiratory/Chest: Denies cough, hemoptysis, shortness of breath at rest or shortness of breath with exertion Gastrointestinal Gastrointestinal: Denies abdominal pain, constipation, diarrhea, hematemesis, hematochezia, melena, nausea or vomiting Genitourinary Genitourinary: Denies dysuria, hematuria, urinary frequency, urinary hesitancy, urinary incontinence or urinary urgency Musculoskeletal Musculoskeletal: Reports other Details: Blister on the plantar surface of the patient's right foot ; Denies back pain, joint pain, joint stiffness, joint swelling, myalgias or neck pain Neurologic Neurologic: Denies abnormal gait, abnormal speech, confusion, dizziness, focal weakness, headache(s), loss of vision, numbness, other visual disturbances, paresthesias, syncope or tingling Psychiatric Psychiatric: Denies anxiety, cognitive impairment, depression, irritability, mood swings or suicidal ideation Endocrine Endocrinology: Denies change in body appearance, cold intolerance, excessive sweating, heat intolerance, polydipsia or polyuria Hematologic/Lymphatic Hematologic/Lymphatic: Denies none, anemia, easy bleeding, easy bruising or lymphadenopathy Allergic/Immunologic Allergic/Immunologic: Denies rhinitis, urticaria, eczemia or asthma Vital Signs Vital Signs Vital Signs: 04/24/24 14:28 04/24/24 16:28 Temperature 97.9 F Temperature Source Temporal Pulse Rate 99 81 Respiratory Rate 16 16 Blood Pressure 157/83 H 152/75 H Blood Pressure Mean 107 100 Pulse Ox 98 98 Oxygen Delivery Method Room Air Room Air Physical Exam Const alert, oriented x3 and no apparent distress Constitutional Narrative: Patient appears older than his stated age General Appearance: cooperative and well developed Orientation / Consciousness: awake, oriented to person, oriented to place and oriented to time HEENT normocephalic, head/scalp atraumatic, hearing grossly normal bilaterally and moist oral mucous membranes Eyes PERRL, EOMs intact bilaterally and conjunctivae normal Neck supple, no JVD, thyroid normal and no carotid bruits General: trachea midline Resp normal respiratory effort, no retractions, no use of accessory muscles and clear to auscultation bilaterally Auscultation: Negative for rales, rhonchi or wheezes Cardio regular rate, regular rhythm, S1 normal heart sound, S2 normal heart sound, no murmurs, no rub and no gallops GI normal to inspection, nondistended, normoactive bowel sounds, soft to palpation, non-tender and non-distended Extremity Extremity Narrative: There was a large blister formation on the plantar surface of the patient's right foot over the arch area and also over the metatarsal foot area. Skin Skin Narrative: Large blister formation on the metatarsal area of the right foot and the midfoot area under the arch Neuro oriented x3, CN's II-XII intact bilaterally and no focal motor deficits Neuro Narrative: Decreased sensation to light touch over the right foot Sensorium / Orientation: awake and alert Speech: speech normal Psych affect normal Results Lab / Micro Data 04/24/24 15:08 04/24/24 15:08 Labs: Laboratory Results - last 24 hr 04/24/24 15:08: WBC 8.4, RBC 4.54 L, Hgb 12.8 L, Hct 39.2 L, MCV 86.3, MCH 28.2, MCHC 32.7, RDW Std Deviation 40.8, RDW Coeff of Cheri 13.1, Plt Count 353, MPV 9.7, Immature Gran % (Auto) 0.400, Neut % (Auto) 70.6 H, Lymph % (Auto) 17.2 L, [place] % (Auto) 7.7, Eos % (Auto) 3.3, Baso % (Auto) 0.8, Absolute Neuts (auto) 5.9, Absolute Lymphs (auto) 1.44, Nucleated RBC % 0, ESR 12, Sodium 139, Potassium 3.4 L, Chloride 102, Carbon Dioxide 34.0 H, Anion Gap 3 L, BUN 26 H, Creatinine 1.34 H, Est GFR (MDRD) Af Amer 69, Est GFR (MDRD) Non-Af 57 L, BUN/Creatinine Ratio 19.4, Glucose 300 H, Calcium 8.6, C-React Prot Ext Range 13.90 H Imaging Radiology Impression Foot X-Ray 04/24/24 15:08 IMPRESSION: Diffuse soft tissue swelling. Possible osteomyelitis involving the distal portion of the fifth metatarsal and the base of the posterior pharynx of the fifth toe. Electronically Signed: Gustavo Lezama MD at 15:22 EDT , Assessment & Plan Assessment/Plan (1) Second degree burn of right foot: PLAN: Plan 1. Second-degree burn to the right foot-status post debridement of blister roof, patient will be admitted to [place] [address], he will be placed on IV Ancef and vancomycin (patient had a past history of MRSA), he will be seen by the wound care nurse and podiatry will participate in his care. #2 acute debility secondary to #1-patient will need temporary placement to retirement facility, he is not able to take care of his foot wound. #3 noncompliance with medical treatment-patient takes no medicines at this time, he has type 2 diabetes and has not on any medication for his diabetes. Patient will be placed on sliding scale insulin and I will place the patient on 20 units of Lantus twice a day. #4 type 2 diabetes-again patient will be placed on Lantus and sliding scale insulin #5 COPD by history-patient uses no medications, he is currently on room air Total clinical time spent by myself addressing the patient's medical issues, reviewing all of his data, and collaborating with patient's care team: 55 minutes Charges/Coding Visit Charges Inpatient E&M: 96496 Init Hosp L2
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
[2024-04-24] MEDS: Silver Sulfadiazine 1% Crm 50 gm Bottle 1 APPLIC TOPICAL (17:37)
[2024-04-24] MEDS: Piperacil/Tazobactam 3.375 GM in 0.9% Normal Saline (50mL MB+) 50 ML IV (17:37)
[2024-04-24 17:50] VITALS: BMI 26.4
[2024-04-24 18:00] VITALS: BP 145/79; PULSE 89; RESP 16; O2SAT 98
[2024-04-24 18:30] VITALS: BP 144/72; PULSE 88; RESP 16; TEMP 36.4; O2SAT 98
[2024-04-24 18:59] VITALS: BMI 27.0
[2024-04-24] MEDS: Vancomycin HCl 1,250 MG in 0.9% Normal Saline (250mL Bag) 250 ML 167 MG IV (19:47)
[2024-04-24 19:53] VITALS: BP 141/67; PULSE 91; RESP 18; TEMP 36.9; O2SAT 98
[2024-04-24] MEDS: Insulin Lispro 100 UNIT/ML INSULN.PEN SC (21:58)
[2024-04-24] MEDS: Insulin Glargine-YFGN 100 UNIT/ML Pen 20 UNIT SC (21:59)
[2024-04-24] MEDS: Heparin Injection (Vial) 5,000 UNIT/ML VIAL 5000 UNIT SC (22:01)
[2024-04-24] MEDS: Menthol/Lanolin/Calamine/Znox 113 GM Tube 1 APPLIC TOPICAL (22:02)
[2024-04-24] MEDS: Miconazole Nitrate 43 GM Bottle 1 APPLIC TOPICAL (22:03)
[2024-04-24 22:24] LABS: Bedside Glucose 329 mg/dL (74-106)
[2024-04-25 02:28] VITALS: BP 159/86; PULSE 84; RESP 18; TEMP 37.2; O2SAT 97
[2024-04-25 02:43] LABS: Bedside Glucose 298 mg/dL (74-106)
[2024-04-25] MEDS: Insulin Lispro 100 UNIT/ML INSULN.PEN SC ×4 (06:39→21:52)
[2024-04-25 06:59] LABS: Bedside Glucose 246 mg/dL (74-106)
[2024-04-25 07:20] LABS: Absolute Lymphocyte Count 1.53 X10^3/uL (0.83-4.51); Absolute Neutrophil Count 6.3 X10^3/uL (2.0-7.7); Basophil# 0.05 X10^3/uL; Basophil% 0.6 % (0-1); Eosinophil# 0.35 X10^3/uL; Eosinophils% 3.9 % (0-5); Hematocrit 35.8 % (40-54); Hemoglobin 11.7 g/dL (13.0-16.5); Lymphocyte # 1.53 X10^3/ul (0.83-4.51); Mean Corp Hgb Conc 32.7 g/dL (32-36); Mean Corpuscular Hgb 28.2 pg (27.0-32.0); Mean Corpuscular Volume 86.3 fL (80-94); Mean Platelet Vol. 9.9 fl (6.2-12.0); Monocyte# 0.76 X10^3/uL; Monocyte% 8.4 % (0-10); NRBC Flagged by Analyzer 0 % (0-5); Neutrophil # 6.29 X10^3/uL (2.7-7.7); Neutrophil % 69.8 % (47-70); Platelet Count 331 K/mm3 (150-450); RBC Distribution Width CV 12.8 % (11.6-14.6); RBC Distribution Width SD 40.4 fl (35.1-43.9); Red Blood Count 4.15 M/mm3 (4.6-6.2)
[2024-04-25 07:51] LABS: Anion Gap 5 (5-15); BUN 22 mg/dL (7-18); Calcium,Total 7.9 mg/dL (8.5-10.1); Chloride 107 mmol/L (98-107); Creatinine, Serum 1.05 mg/dL (0.70-1.30); EST Glomerular Filtration Rate 75 mL/min (>60); Est Glom Filt Rate - Afr Amer 91 mL/min (>60); Estimated Creatinine Clearance 70.14 ml/min; Glucose 269 mg/dL (74-106); Potassium 3.2 mmol/L (3.5-5.1); Sodium Level 140 mmol/L (136-145)
[2024-04-25] MEDS: Glucerna Shake 120 ML LIQUID PO ×3 (08:50→17:19)
[2024-04-25] MEDS: Heparin Injection (Vial) 5,000 UNIT/ML VIAL 5000 UNIT SC ×2 (08:51→21:53)
[2024-04-25] MEDS: Insulin Glargine-YFGN 100 UNIT/ML Pen 20 UNIT SC (08:51)
[2024-04-25] MEDS: Menthol/Lanolin/Calamine/Znox 113 GM Tube 1 APPLIC TOPICAL ×2 (08:52→21:55)
[2024-04-25] MEDS: Miconazole Nitrate 43 GM Bottle 1 APPLIC TOPICAL ×2 (08:53→21:55)
[2024-04-25 09:00] VITALS: BP 135/73; PULSE 81; RESP 16; TEMP 36.9; O2SAT 97
--- NOTE | 2024-04-25 09:40 | WOUNDNOTE ---
wound photo: right foot
[2024-04-25] MEDS: Silver Sulfadiazine 1% Crm 50 gm Bottle 1 APPLIC TOPICAL (10:17)
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
[2024-04-25] MEDS: Potassium Chloride Oral Tablet 20 MEQ 40 MEQ PO (11:18)
[2024-04-25 11:24] LABS: Bedside Glucose 206 mg/dL (74-106)
--- NOTE | 2024-04-25 11:37 | CASEMGMT ---
Discharge Planning A list of?SNF providers including quality and resource use data and consistent with the patient's preferred geographic region, medical needs, and insurance network was created in [employer] Guide.? This list was provided to the SW. Hien Nelson Discharge Planning Asst.
[2024-04-25 11:46] VITALS: BP 155/80; PULSE 79; RESP 16; TEMP 36.9; O2SAT 99
[2024-04-25] MEDS: Vancomycin IV 1,000 MG/200 ML BAG 200 MG IV (12:26)
--- NOTE | 2024-04-25 13:10 | CASEMGMT ---
Addendum entered by Hien Nelson 04/25/24 13:46: [facility] has accepted patient and will submit for precert. SW updated. Hien Nelson DC Planning Asst. Original Note: [facility]charge Planning [facility] via [facility]. Hien Nelson DC Planning Asst.
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
[2024-04-25] MEDS: Cefepime HCl 1 GM in 0.9% Normal Saline (50mL MB+) 50 ML IV (14:29)
[2024-04-25 14:54] VITALS: BP 147/59; PULSE 79; RESP 16; TEMP 36.8; O2SAT 98
[2024-04-25 15:01] VITALS: O2SAT 98
--- NOTE | 2024-04-25 15:14 | CASEMGMT ---
Discharge Planning PT eval sent to [facility] via [facility]. Hien Nelson DC Planning Asst.
--- NOTE | 2024-04-25 15:50 | CASEMGMT ---
SALMA CM into pt room, delivered list of food delivery services.
[2024-04-25 16:34] LABS: Bedside Glucose 181 mg/dL (74-106)
[2024-04-25 21:47] VITALS: BP 129/67; PULSE 77; RESP 18; TEMP 36.8; O2SAT 96
[2024-04-25] MEDS: Insulin Glargine-YFGN 100 UNIT/ML Pen 25 UNIT SC (21:51)
[2024-04-25] MEDS: 0.9% Saline Lock 10 ML Syringe IV (21:57)
[2024-04-25 23:01] LABS: Bedside Glucose 246 mg/dL (74-106)
[2024-04-26 06:14] VITALS: BP 144/68; PULSE 75; RESP 18; TEMP 36.5; O2SAT 98
[2024-04-26 06:34] LABS: Absolute Lymphocyte Count 1.71 X10^3/uL (0.83-4.51); Absolute Neutrophil Count 4.9 X10^3/uL (2.0-7.7); Basophil# 0.06 X10^3/uL; Basophil% 0.8 % (0-1); Eosinophil# 0.39 X10^3/uL; Hematocrit 37.6 % (40-54); Hemoglobin 12.3 g/dL (13.0-16.5); Lymphocyte # 1.71 X10^3/ul (0.83-4.51); Lymphocyte % 21.9 % (19-41); Mean Corp Hgb Conc 32.7 g/dL (32-36); Mean Corpuscular Hgb 28.7 pg (27.0-32.0); Mean Corpuscular Volume 87.6 fL (80-94); Mean Platelet Vol. 10.1 fl (6.2-12.0); NRBC Flagged by Analyzer 0 % (0-5); Neutrophil # 4.91 X10^3/uL (2.7-7.7); Neutrophil % 62.9 % (47-70); Platelet Count 330 K/mm3 (150-450); RBC Distribution Width CV 12.9 % (11.6-14.6); RBC Distribution Width SD 41.2 fl (35.1-43.9); Red Blood Count 4.29 M/mm3 (4.6-6.2); White Blood Count 7.8 K/mm3 (4.4-11.0)
[2024-04-26 06:43] LABS: Bedside Glucose 98 mg/dL (74-106)
[2024-04-26 07:02] LABS: Anion Gap 7 (5-15); BUN 25 mg/dL (7-18); BUN/Creat Ratio 26.5 RATIO (10-20); Calcium,Total 8.6 mg/dL (8.5-10.1); Chloride 108 mmol/L (98-107); Creatinine, Serum 0.94 mg/dL (0.70-1.30); EST Glomerular Filtration Rate 85 mL/min (>60); Est Glom Filt Rate - Afr Amer 103 mL/min (>60); Estimated Creatinine Clearance 78.35 ml/min; Glucose 91 mg/dL (74-106); Potassium 3.8 mmol/L (3.5-5.1); Sodium Level 142 mmol/L (136-145)
[2024-04-26] MEDS: Insulin Glargine-YFGN 100 UNIT/ML Pen 25 UNIT SC (07:41)
[2024-04-26] MEDS: Glucerna Shake 120 ML LIQUID PO ×2 (07:42→11:14)
[2024-04-26] MEDS: Menthol/Lanolin/Calamine/Znox 113 GM Tube 1 APPLIC TOPICAL (07:42)
[2024-04-26] MEDS: Heparin Injection (Vial) 5,000 UNIT/ML VIAL 5000 UNIT SC (07:42)
[2024-04-26] MEDS: Miconazole Nitrate 43 GM Bottle 1 APPLIC TOPICAL (07:42)
[2024-04-26] MEDS: Silver Sulfadiazine 1% Crm 50 gm Bottle 1 APPLIC TOPICAL (08:18)
--- NOTE | 2024-04-26 08:36 | CASEMGMT ---
[facility]charge [facility] Hien Nelson DC Planning Asst.
[2024-04-26 08:52] VITALS: BP 128/61; PULSE 72; RESP 16; TEMP 36.6; O2SAT 95
--- NOTE | 2024-04-26 10:40 | PCM.TXEXTCAR ---
Diet Diet Order/Speech Therapy: 04/24/24 19:18 Diet: Consistent Carb - Calorie Controlled Food consistency:: Regular Liquid Consistency:: Regular/Thin Type of Dietary Supplement:: Edy Diet Comments: Fruit punch flavor Edy How many daily calories?: 1800 calorie Routine Orders/Code Status Suppository Type: Dulcolax 10mg Suppository Frequency: Daily PRN Wound(s) right foot: Wound Type: 2 open blisters from walsh Dressing Change: silvadene with Adaptic generalized: Wound Type: scattered abrasions Therapies Extremity Affected:: Bilateral Lower Physical Therapy: Eval and Treat Occupational Therapy: Eval and Treat Speech Therapy: Eval and Treat Problem/Diagnosis (1) Second degree burn of right foot: Status: Acute Code(s): T25.221A - Burn of second degree of right foot, initial encounter Plan 64-year-old gentleman with history of diabetic neuropathy status post left BKA 4 years ago was admitted with blister on the right foot plantar surface, status post debridement we are walking on the hard concrete. 1. Second-degree burn to the right foot-status post debridement of blister roof with possible secondary infection due to Streptococcus agalactiae: Patient will be admitted to [facility], he will be placed on IV Ancef and vancomycin (patient had a past history of MRSA), he will be seen by the wound care nurse and podiatry will participate in his care. Patient had right foot x-ray which shows decreased bony attenuation of distal aspect of the fifth metatarsal and proximal phalanx of fifth toe which raised suspicion of osteomyelitis. Process Expert was consulted. As per his note, there is no evidence of destruction of the bone throughout the forefoot. No emphysema or soft tissue air appreciated. No concern for osteomyelitis to the level of the fifth ray right foot. No visual abnormality on exam. Therefore osteomyelitis ruled out. Patient empirically on IV vancomycin and cefepime. 04/24: Patient had 1 dose of antibiotic in the morning on 04/26 therefore total 48 hours and then monitored off antibiotic. No fever. Discussed with ID Dr. De Leon and advised to empirically Keflex 500 mg 4 times daily to prevent any deep infection. As mentioned above osteomyelitis or deep tissue infection ruled out by home health nurse Dr. Gaines. Patient is discharged on the same regimen. Advised padded plantar dressing and Vinay wrap bandage and to keep foot offloading for 1 week #2 acute debility -patient will need temporary placement to [facility] facility, he is not able to take care of his foot wound. #3 noncompliance with medical treatment-patient takes no medicines at this time, he has type 2 diabetes and has not on any medication for his diabetes. #4 type 2 diabetes-again patient placed on Lantus and sliding scale insulin glucose is high. Admission glucose was 329 now it is 206. 04/24 glucose in the morning was 98 but around 11:00 it was 205. Lantus dose decreased. #5 COPD by history-patient uses no medications, he is currently on room air Discharge medication reconciliation done. Discharge follow-up instructions completed. Discharge process discussed with the patient and all questions were answered to patient's satisfaction. Follow with PCP in 1 to 2 weeks Total time spent, exact 35 minutes on discharge meds reconciliation, examination, coordination of care with nurses and ancillary staff, review of imaging and blood test and discussion with the patient on follow-up instructions. Microbiology Past 72 Hours 04/24/24 17:30 Wound - Right Foot Gram Stain - Final 04/24/24 17:30 Wound - Right Foot Wound Culture - Final Streptococcus agalactiae (B) 04/24/24 17:30 Wound - Right Foot Anaerobic Culture - Preliminary Checking for anaerobes, further studies to follow. Laboratory Results 04/25/24 16:13: POC Glucose 181 H 04/25/24 21:49: POC Glucose 246 H 04/26/24 05:43: WBC 7.8, RBC 4.29 L, Hgb 12.3 L, Hct 37.6 L, MCV 87.6, MCH 28.7, MCHC 32.7, RDW Std Deviation 41.2, RDW Coeff of Cheri 12.9, Plt Count 330, MPV 10.1, Immature Gran % (Auto) 0.400, Neut % (Auto) 62.9, Lymph % (Auto) 21.9, [place]ulkner % (Auto) 9.0, Eos % (Auto) 5.0, Baso % (Auto) 0.8, Absolute Neuts (auto) 4.9, Absolute Lymphs (auto) 1.71, Nucleated RBC % 0, Sodium 142, Potassium 3.8, Chloride 108 H, Carbon Dioxide 27.0, Anion Gap 7, BUN 25 H, Creatinine 0.94, Estim Creat Clear Calc 78.35, Est GFR (MDRD) Af Amer 103, Est GFR (MDRD) Non-Af 85, BUN/Creatinine Ratio 26.5 H, Glucose 91, Hemoglobin A1c 12.0 H, Calcium 8.6 04/26/24 06:17: POC Glucose 98 04/26/24 11:10: POC Glucose 205 H Clinical Impression(s) from Imaging Studies Foot X-Ray 04/24/24 15:08 IMPRESSION: Diffuse soft tissue swelling. Possible osteomyelitis involving the distal portion of the fifth metatarsal and the base of the posterior pharynx of the fifth toe. Allergies/Procedures Done in Hospital Allergies onion Allergy (Verified 11/18/23 21:58) Food Allergy SWELLING Type of Care/Length of Stay Estimated LOS: Convalescent Care Less Than 30 days Type of Care Needed: Skilled Rehab Potential: Good Prognosis: Good Additional Orders/Day of Discharge Day of Discharge: 04/26/24 Dietary and Speech Recommendations Dietitian Recommendations/Changes: Continue current diet order Continue Glucerna TID per medpass protocol Order Edy BID to promote wound healing- patient wanting to try fruit punch flavor. Discharge Plan Admission Admit Date/Time: 04/24/24 17:35 Primary Reason for Your Visit: Second-degree burn and secondary infection due to group B streptococcus Attending Provider: Jeyson Mendoza Primary Care Provider: Kaylen Horton Consulting Providers: Zane Gaines; David Hudson Discharge Orders/Prescriptions Prescriptions: New cephalexin 500 mg Capsule 500 mg PO 4X/DAYCM 5 Days Qty: 20 0RF silver sulfadiazine 1 % Cream 1 applic topical DAILY 10 Days Qty: 0 0RF Protocol: *Topical Application Instructions APPLICATION INSTRUCTIONS: apply thin layer to the right foot blisters Rx Instructions: For 10 days acetaminophen 325 mg Tablet 650 mg PO Q6H PRN PRN (Reason: Pain 1-10 Or Fever >100.7) Qty: 0 0RF insulin lispro [Humalog KwikPen Insulin] 100 unit/mL Insulin Pen See Protocol subcut ACHS Qty: 0 0RF Protocol: 4. Sliding Scale Insulin High-Med Dosing Condition: 150-199 mg/dl = 2 units Condition: 200-259 mg/dl = 4 units Condition: 260-324 mg/dl = 6 units Condition: 325-374 mg/dl = 8 units Condition: 375-409 mg/dl = 10 units Condition: 410-449 mg/dl = 11 units Condition: Greater than 449 call physician Protocol Text: Suggested for: - Patients on Total Daily Insulin Dose of 56-80 units - Patient who are known to be insulin resistant or septic HIGH MEDIUM DOSING ALGORITHM insulin glargine [Lantus Solostar U-100 Insulin] 100 unit/mL (3 mL) insulin pen 20 unit subcut BID 30 Days Qty: 15 4RF Rx Instructions: Hold if glucose less than 130 mg/dl No Action (DME) Left leg prosthetic See Rx Instructions .Route .MEDSUPPLY Qty: 1 0RF Rx Instructions: As directed (DME) walker Misc See Rx Instructions .ROUTE .MEDSUPPLY Qty: 1 0RF Rx Instructions: As directed Referrals / Follow Up: Kaylen Horton MD [Primary Care Provider] - Care Physician,No Primary [Non-Staff] - Zane Gaines DPM [Med Staff - Active Staff] - Within 2 Weeks Disposition Disposition (needs filled in before D/C Order can be placed): Intermediate Facility Charges/Coding Visit Charges Inpatient E&M: 89313 Disch Hosp >30min
[2024-04-26] MEDS: Insulin Lispro 100 UNIT/ML INSULN.PEN SC (11:11)
[2024-04-26 11:23] VITALS: BP 140/74; PULSE 85; RESP 16; TEMP 36.8; O2SAT 98
[2024-04-26 11:35] LABS: Bedside Glucose 205 mg/dL (74-106)
[2024-04-26] MEDS: Cephalexin 500 MG Capsule PO (11:41)
--- NOTE | 2024-04-26 12:04 | CASEMGMT ---
Discharge Planning [facility] has obtained auth to admit. SW updated. Hien Nelson DC Planning Asst.
--- NOTE | 2024-04-26 12:53 | DS.PCM_ITS ---
Providers Date of Admission: 04/24/24 Date of Discharge: 04/26/24 Primary Care Physician: Dr. Kaylen Horton MD Consultations 04/24/24 19:18 Consult: Podiatry Routine Consulting Provider: Zane Gaines Reason for Consult: foot burn EMERGENT Consult: No MD Notified: Yes Date Notified: 04/24/24 Time Notified: 17:42 Method of Notification: Verbal 04/25/24 15:31 Consult: Onc/Wound/fundraiser Routine Comment: Reason for Consult:: right foot walsh 04/25/24 16:29 Consult: Infectious Disease Routine Consulting Provider: Charles De Leon Reason for Consult: blister ruptured, abnormal foot xray but no OSTEO per treer EMERGENT Consult: No MD Notified: Yes Date Notified: 04/25/24 Time Notified: 16:30 Method of Notification: Text Reason For Visit: BURN TO RIGHT FOOT Diagnosis Discharge Diagnosis (1) Second degree burn of right foot: Status: Acute Code(s): T25.221A - Burn of second degree of right foot, initial encounter Plan 64-year-old gentleman with history of diabetic neuropathy status post left BKA 4 years ago was admitted with blister on the right foot plantar surface, status post debridement we are walking on the hard concrete. 1. Second-degree burn to the right foot-status post debridement of blister roof, patient will be admitted to [facility], he will be placed on IV Ancef and vancomycin (patient had a past history of MRSA), he will be seen by the wound care nurse and podiatry will participate in his care. Patient had right foot x-ray which shows decreased bony attenuation of distal aspect of the fifth metatarsal and proximal phalanx of fifth toe which raised suspicion of osteomyelitis. Electro Mechanical Solar Technician was consulted. As per his note, there is no evidence of destruction of the bone throughout the forefoot. No emphysema or soft tissue air appreciated. No concern for osteomyelitis to the level of the fifth ray right foot. No visual abnormality on exam. Therefore osteomyelitis ruled out. Patient empirically on IV vancomycin and cefepime. I feel patient had blister because of heat which has ruptured. Will monitor without antibiotic. 04/26: 04/24: Patient had 1 dose of antibiotic in the morning on 04/26 therefore total 48 hours and then monitored off antibiotic. No fever. Discussed with ID Dr. De Leon and advised to empirically Keflex 500 mg 4 times daily to prevent any deep infection. Right foot wound culture shows pulmonary Streptococcus group B. As mentioned above osteomyelitis or deep tissue infection ruled out by treer Dr. Gaines. Patient is discharged on the same regimen. Advised padded plantar dressing and Vinay wrap bandage and to keep foot offloading for 1 week #2 acute debility -patient will need temporary placement to nursing home facility, he is not able to take care of his foot wound. #3 noncompliance with medical treatment-patient takes no medicines at this time, he has type 2 diabetes and has not on any medication for his diabetes. #4 type 2 diabetes-again patient placed on Lantus and sliding scale insulin glucose is high. Admission glucose was 329 now it is 206. 04/26: GLucose in the morning was 98 but around 11:00 it was 205. Lantus dose decreased to 20 units twice daily. Patient discharged on the same dose with [facility] sliding scale. #5 COPD by history-patient uses no medications, he is currently on room air Discharge medication reconciliation done. Discharge follow-up instructions completed. Discharge process discussed with the patient and all questions were answered to patient's satisfaction. Follow with PCP in 1 to 2 weeks Total time spent, exact 35 minutes on discharge meds reconciliation, examination, coordination of care with nurses and ancillary staff, review of imaging and blood test and discussion with the patient on follow-up instructions. Microbiology Past 72 Hours 04/24/24 17:30 Wound - Right Foot Gram Stain - Final 04/24/24 17:30 Wound - Right Foot Wound Culture - Final Streptococcus agalactiae (B) 04/24/24 17:30 Wound - Right Foot Anaerobic Culture - Preliminary Checking for anaerobes, further studies to follow. Laboratory Results 04/25/24 16:13: POC Glucose 181 H 04/25/24 21:49: POC Glucose 246 H 04/26/24 05:43: WBC 7.8, RBC 4.29 L, Hgb 12.3 L, Hct 37.6 L, MCV 87.6, MCH 28.7, MCHC 32.7, RDW Std Deviation 41.2, RDW Coeff of Cheri 12.9, Plt Count 330, MPV 10.1, Immature Gran % (Auto) 0.400, Neut % (Auto) 62.9, Lymph % (Auto) 21.9, [place] % (Auto) 9.0, Eos % (Auto) 5.0, Baso % (Auto) 0.8, Absolute Neuts (auto) 4.9, Absolute Lymphs (auto) 1.71, Nucleated RBC % 0, Sodium 142, Potassium 3.8, Chloride 108 H, Carbon Dioxide 27.0, Anion Gap 7, BUN 25 H, Creatinine 0.94, Estim Creat Clear Calc 78.35, Est GFR (MDRD) Af Amer 103, Est GFR (MDRD) Non-Af 85, BUN/Creatinine Ratio 26.5 H, Glucose 91, Hemoglobin A1c 12.0 H, Calcium 8.6 04/26/24 06:17: POC Glucose 98 04/26/24 11:10: POC Glucose 205 H Clinical Impression(s) from Imaging Studies Foot X-Ray 04/24/24 15:08 IMPRESSION: Diffuse soft tissue swelling. Possible osteomyelitis involving the distal portion of the fifth metatarsal and the base of the posterior pharynx of the fifth toe. Medications at Discharge Home Medications walker #1 ea 12/28/21 Left leg prosthetic #1 ea 07/13/22 acetaminophen 325 mg tablet 650 mg (2 x 325 mg) PO Q6H PRN PRN Pain 1-10 Or Fever >100.7 #0 tabs 04/26/24 cephalexin 500 mg capsule 500 mg PO 4X/DAYCM 5 days #20 caps 04/26/24 insulin glargine 100 unit/mL (3 mL) subcutaneous pen (Lantus Solostar U-100 Insulin) 20 unit (0.2 mL) subcut BID 1 month #15 mL 04/26/24 insulin lispro 100 unit/mL subcutaneous pen (Humalog KwikPen (U-100) Insulin) See Protocol subcut ACHS #0 mL 04/26/24 silver sulfadiazine 1 % topical cream 1 applic topical DAILY 10 days #0 grams 04/26/24 Physical Exam Narrative Patient was admitted with large blister formation on the plantar surface of the patient's right foot over the arch area and also over the metatarsal foot area. Physical exam General: Alert, Oriented x3, Cooperative HEENT: Atraumatic, PERRLA, EOMI, Normocephalic Oral: No Gingival or Mucosal Lesions/ Ulcerations Neck: Supple, No JVD, Negative Carotid Bruits Chest wall/Lungs: Air entry diminished in bilateral lung bases. No crepitation/rhonchi Cardiovascular: Regular rate, Regular Rhythm, Normal S1, Normal S2, No M/G/R Abdomen: Bowel Sounds Present, Soft, Non Tender, Non-Distended : No dysuria. No renal angle tenderness. No suprapubic tenderness. Extremities: No edema, Capillary Refill Less than 3 Seconds Skin: Wound photos reviewed. Large blister healing well. Dressing was changed with Silvadene and Adaptic. Drainage amount minimal. Drain is description serosanguineous. Musculoskeletal: Left BKA. Right foot plantar skin erosion after blister. No Tenderness to Palpation of Joints or Extremities Neurological: Cranial nerves II-XII grossly intact, DTR 2+/4. No acute focal neurological deficit. Psych/Mental Status: Flat affect Weight / BMI Weight Weight: 182 lb 15.739 oz Body Mass Index (BMI) 27.0 ABG / Lab / Microbiology Data 04/26/24 05:43 04/26/24 05:43 Laboratory: Laboratory Results - last 24 hr 04/25/24 11:04: POC Glucose 206 H 04/25/24 16:13: POC Glucose 181 H 04/25/24 21:49: POC Glucose 246 H 04/26/24 05:43: WBC 7.8, RBC 4.29 L, Hgb 12.3 L, Hct 37.6 L, MCV 87.6, MCH 28.7, MCHC 32.7, RDW Std Deviation 41.2, RDW Coeff of Cheri 12.9, Plt Count 330, MPV 10.1, Immature Gran % (Auto) 0.400, Neut % (Auto) 62.9, Lymph % (Auto) 21.9, [place] % (Auto) 9.0, Eos % (Auto) 5.0, Baso % (Auto) 0.8, Absolute Neuts (auto) 4.9, Absolute Lymphs (auto) 1.71, Nucleated RBC % 0, Sodium 142, Potassium 3.8, Chloride 108 H, Carbon Dioxide 27.0, Anion Gap 7, BUN 25 H, Creatinine 0.94, Estim Creat Clear Calc 78.35, Est GFR (MDRD) Af Amer 103, Est GFR (MDRD) Non-Af 85, BUN/Creatinine Ratio 26.5 H, Glucose 91, Calcium 8.6 04/26/24 06:17: POC Glucose 98 Microbiology: Microbiology 04/24/24 17:30 Wound - Right Foot Gram Stain - Final 04/24/24 17:30 Wound - Right Foot Wound Culture - Preliminary Streptococcus group B Meaningful Use Info Meaningful Use Meaningful Use Diagnoses (Choose all that apply): None applicable Ischemic Stroke Statin Dosing Therapy Reference: STATIN DOSE THERAPY REFERENCE: * Patients > 75 years receive moderate or high dose statin therapy. * Patients 75 years or YOUNGER should receive HIGH intensity statin dose unless contraindicated. You will be required to document reason for non-treatment if statin daily dose does not meet guidelines. HIGH DOSE STATIN THERAPY DAILY Atorvastatin > than or = to 40 mg Rosuvastatin > than or = to 20 mg Amlodipine + Atorvastatin > than or = to 2.5/40 mg Ezetimibe + Simvastatin 10/80 mg Simvastatin 80mg Discharge Plan Admission Admit Date/Time: 04/24/24 17:35 Primary Reason for Your Visit: Second-degree burn and secondary infection due to group B streptococcus Attending Provider: Jeyson Mendoza Primary Care Provider: Kaylen Horton Consulting Providers: Zane Gaines; David Hudson Discharge Orders/Prescriptions Prescriptions: New cephalexin 500 mg Capsule 500 mg PO 4X/DAYCM 5 Days Qty: 20 0RF silver sulfadiazine 1 % Cream 1 applic topical DAILY 10 Days Qty: 0 0RF Protocol: *Topical Application Instructions APPLICATION INSTRUCTIONS: apply thin layer to the right foot blisters Rx Instructions: For 10 days acetaminophen 325 mg Tablet 650 mg PO Q6H PRN PRN (Reason: Pain 1-10 Or Fever >100.7) Qty: 0 0RF insulin lispro [Humalog KwikPen Insulin] 100 unit/mL Insulin Pen See Protocol subcut ACHS Qty: 0 0RF Protocol: 4. Sliding Scale Insulin High-Med Dosing Condition: 150-199 mg/dl = 2 units Condition: 200-259 mg/dl = 4 units Condition: 260-324 mg/dl = 6 units Condition: 325-374 mg/dl = 8 units Condition: 375-409 mg/dl = 10 units Condition: 410-449 mg/dl = 11 units Condition: Greater than 449 call physician Protocol Text: Suggested for: - Patients on Total Daily Insulin Dose of 56-80 units - Patient who are known to be insulin resistant or septic HIGH MEDIUM DOSING ALGORITHM insulin glargine [Lantus Solostar U-100 Insulin] 100 unit/mL (3 mL) insulin pen 20 unit subcut BID 30 Days Qty: 15 4RF Rx Instructions: Hold if glucose less than 130 mg/dl No Action (DME) Left leg prosthetic See Rx Instructions .Route .MEDSUPPLY Qty: 1 0RF Rx Instructions: As directed (DME) walker Misc See Rx Instructions .ROUTE .MEDSUPPLY Qty: 1 0RF Rx Instructions: As directed Referrals / Follow Up: Kaylen Horton MD [Primary Care Provider] - Zane Gaines DPM [Med Staff - Active Staff] - Within 2 Weeks Care Physician,No Primary [Non-Staff] - Disposition Disposition (needs filled in before D/C Order can be placed): [facility]
--- NOTE | 2024-04-26 14:04 | CASEMGMT ---
Social Work Precert has been obtained and pt can be discharged to [facility]. Physician notified and pt is ready for discharge today. 7000 exemption form completed in [facility]. [place] social worker assistant notified and will complete discharge. Disposition: [facility], skilled level of care under convalescent stay CRIS Leslie
--- NOTE | 2024-04-26 14:31 | CASEMGMT ---
Discharge Planning Discharge orders, signed med list, and transport time sent to [facility] via [facility]. Physicians will transport patient by wheelchair at 3:30p. Nursing, SW, and patient updated. Hien Nelson DC Planning Asst.
== END 2024-04-26 15:26 | disposition skilled nursing facility (03) | DRG 935 ==
LOC: ED 14:50 → MS3 18:02
PROVIDERS: Admitting Provider Internal Medicine; Emergency Provider Student in an Organized Health Care Education/Training Program; PCP Internal Medicine; Visit Provider Internal Medicine
DX: T25.221A Burn of second degree of right foot, initial encounter (principal); M86.8X7 Other osteomyelitis, ankle and foot; E11.40 Type 2 diabetes mellitus with diabetic neuropathy, unspecified; E11.69 Type 2 diabetes mellitus with other specified complication; J44.9 Chronic obstructive pulmonary disease, unspecified; Z79.4 Long term (current) use of insulin; I10 Essential (primary) hypertension; R53.81 Other malaise; Z87.891 Personal history of nicotine dependence; Z86.14 Personal history of Methicillin resistant Staphylococcus aureus infection; Z91.199 Patient's noncompliance with other medical treatment and regimen due to unspecified reason; X19.XXXA Contact with other heat and hot substances, initial encounter
CPT/HCPCS: 36415; 73630; 80048; 82962; 83036; 85025; 85652; 86140; 87070; 87075; 87077; 87186; 87205; 97162; 97166; 97530; 97535; 97802; 99283; J7030; J7050; A4216

== ENCOUNTER 2024-07-08 18:35 | Inpatient (IN) | payer MEDICARE, MEDICAID, SELFPAY ==
[2024-07-08] VITALS (9 sets, daily range): BP systolic 130–164; BP diastolic 59–114; PULSE 74–89; RESP 16–18; TEMP 36.1–36.6; O2SAT 95–97; BMI 28.5; BMI 28.2
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
[2024-07-08] MEDS: Metoclopramide 10 MG/2 ML Vial 5 MG IV (19:27)
[2024-07-08 19:30] LABS: Absolute Neutrophil Count 15.2 X10^3/uL (2.0-7.7); Basophil# 0.06 X10^3/uL; Basophil% 0.4 % (0-1); Eosinophil# 0.02 X10^3/uL; Eosinophils% 0.1 % (0-5); Hematocrit 39.4 % (40-54); Hemoglobin 12.8 g/dL (13.0-16.5); Lymphocyte % 5.3 % (19-41); Mean Corp Hgb Conc 32.5 g/dL (32-36); Mean Corpuscular Hgb 28.4 pg (27.0-32.0); Mean Corpuscular Volume 87.4 fL (80-94); Mean Platelet Vol. 9.9 fl (6.2-12.0); Monocyte# 0.86 X10^3/uL; NRBC Flagged by Analyzer 0 % (0-5); Neutrophil # 15.18 X10^3/uL (2.7-7.7); Neutrophil % 88.7 % (47-70); Platelet Count 351 K/mm3 (150-450); RBC Distribution Width CV 13.2 % (11.6-14.6); RBC Distribution Width SD 42.3 fl (35.1-43.9); Red Blood Count 4.51 M/mm3 (4.6-6.2); White Blood Count 17.1 K/mm3 (4.4-11.0)
[2024-07-08] MEDS: 0.9% Normal Saline (500mL Bag) 500 ML 1000 ML IV (19:30)
[2024-07-08 19:47] LABS: Anion Gap 14 (5-15); BUN 39 mg/dL (7-18); BUN/Creat Ratio 31.7 RATIO (10-20); Calcium,Total 9.3 mg/dL (8.5-10.1); Chloride 108 mmol/L (98-107); Creatinine, Serum 1.23 mg/dL (0.70-1.30); EST Glomerular Filtration Rate 63 mL/min (>60); Est Glom Filt Rate - Afr Amer 76 mL/min (>60); Estimated Creatinine Clearance 65.63 ml/min; Glucose 143 mg/dL (74-106); Potassium 3.4 mmol/L (3.5-5.1); Sodium Level 145 mmol/L (136-145)
--- NOTE | 2024-07-08 19:54 | CT_ITS ---
EXAM: CT ANGIOGRAPHY HEAD AND NECK WITH INTRAVENOUS CONTRAST CLINICAL INDICATION: dizziness TECHNIQUE: [place] [facility] [place]/head and neck CT angiography protocol performed with intravenous contrast. This CT exam was performed using one or more of the following dose reduction techniques: automated exposure control, adjustment of the mA and/or kV according to patient size, and/or use of iterative reconstruction technique. MIP reconstructed images were created and reviewed. CONTRAST: IV 100mL Isovue-370 RADIATION DOSE: CTDIvol = 30.08 mGy, DLP = 1691.53 mGy-cm COMPARISON: Head CT and head and neck CTA November 18, 2023. FINDINGS: HEAD CT UNENHANCED: Compared to November 18, 2023 there is no hemorrhage, edema, mass or mass effect. Low attenuation in the rg appears similar to prior exam. RIGHT ANTERIOR CEREBRAL ARTERY: Unremarkable. Small but patent right A1 segment similar to prior exam. No occlusion or significant stenosis. Anterior communicating artery is present. No aneurysm. RIGHT MIDDLE CEREBRAL ARTERY: Unremarkable. No occlusion or significant stenosis. No aneurysm. RIGHT POSTERIOR CEREBRAL ARTERY: Unremarkable. No occlusion or significant stenosis. No aneurysm. RIGHT INTRACRANIAL INTERNAL CAROTID ARTERY: Unremarkable. No significant stenosis. No dissection or occlusion. RIGHT INTRACRANIAL VERTEBRAL ARTERY: Unremarkable. No significant stenosis. No dissection or occlusion. LEFT ANTERIOR CEREBRAL ARTERY: Unremarkable. No occlusion or significant stenosis. No aneurysm. LEFT MIDDLE CEREBRAL ARTERY: Unremarkable. No occlusion or significant stenosis. No aneurysm. LEFT POSTERIOR CEREBRAL ARTERY: Unremarkable. No occlusion or significant stenosis. No aneurysm. LEFT INTRACRANIAL INTERNAL CAROTID ARTERY: Unremarkable. No significant stenosis. No dissection or occlusion. LEFT INTRACRANIAL VERTEBRAL ARTERY: Unremarkable. No significant stenosis. No dissection or occlusion. BASILAR ARTERY: Unremarkable. No occlusion or significant stenosis. No aneurysm. There is a small right P1 segment but prominent collateral flow from right posterior communicating artery supplying the P2 segment, similar to prior exam. OTHER VASCULATURE: No vascular malformation. Deep veins and dural venous sinuses. NECK: RIGHT COMMON CAROTID ARTERY: Bulb calcified plaque without significant stenosis. No dissection or occlusion. RIGHT EXTRACRANIAL INTERNAL CAROTID ARTERY: Unremarkable. No significant stenosis. No dissection or occlusion. RIGHT EXTERNAL CAROTID ARTERY: Unremarkable. No occlusion. RIGHT EXTRACRANIAL VERTEBRAL ARTERY: Unremarkable. No significant stenosis. No dissection or occlusion. LEFT COMMON CAROTID ARTERY: Mild calcified plaque. No significant stenosis. No dissection or occlusion. LEFT EXTRACRANIAL INTERNAL CAROTID ARTERY: Also by 5 torsion. No significant stenosis. No dissection or occlusion. LEFT EXTERNAL CAROTID ARTERY: Unremarkable. No occlusion. LEFT EXTRACRANIAL VERTEBRAL ARTERY: Unremarkable. No significant stenosis. No dissection or occlusion. BRACHIOCEPHALIC AND SUBCLAVIAN ARTERIES: Unremarkable as visualized. No occlusion or significant stenosis. LUNG APICES: Unremarkable as visualized. HEAD and NECK: BONES/JOINTS: Postoperative changes at C5-6 appears similar, with moderate spinal stenosis at C5-6, AP diameter of the canal is estimated to be 8 mm. No discrete lytic or blastic abnormalities. SOFT TISSUES: Unremarkable. CAROTID STENOSIS REFERENCE USING NASCET CRITERIA: % ICA stenosis = (1 - narrowest ICA diameter/diameter of distal cervical ICA) x 100. Mild - <50% stenosis. Moderate - 50-69% stenosis. Severe - 70-94% stenosis. Near occlusion - 95-99% stenosis. Occluded - 100% stenosis. CT/CTA Head AND Neck W/ Contrast IMPRESSION: No acute intracranial abnormality. No high-grade carotid stenosis. No large vessel occlusion. Degenerative and postoperative changes of the cervical spine with at least mild spinal stenosis. Electronically Signed: Kimberly Luo MD at 21:50 EDT ,
--- NOTE | 2024-07-08 20:02 | RAD_ITS ---
EXAM: XR CHEST, 2 VIEWS CLINICAL INDICATION: sob TECHNIQUE: Frontal and lateral views of the chest. COMPARISON: June 30, 2021. FINDINGS: LUNGS AND PLEURAL SPACES: Unremarkable. No consolidation or edema. No pneumothorax. No effusion. HEART: Unremarkable. Cardiac silhouette not enlarged. MEDIASTINUM: Central airways and mediastinal contour are unremarkable. BONES/JOINTS: Unremarkable. No acute fracture. SOFT TISSUES: Unremarkable. RAD/Chest PA and Lateral IMPRESSION: No radiographic evidence of acute cardiopulmonary disease. Electronically Signed: Kimberly Luo MD at 21:27 EDT ,
--- NOTE | 2024-07-08 22:00 | RAD_ITS ---
EXAM: XR LEFT HAND COMPLETE, 3 OR MORE VIEWS CLINICAL INDICATION: infection TECHNIQUE: Frontal, lateral and oblique views of the left hand. COMPARISON: No relevant prior studies available. FINDINGS: BONES/JOINTS: There is chronic-appearing presumed fracture of the tip of the fifth phalangeal tuft with a well-corticated appearing ossific density of 5 mm at the tuft. Preservation of the joint space. SOFT TISSUES: There is soft tissue swelling of the index finger without visible periosteal reaction or significant joint space asymmetry. No soft tissue tissue gas or radiopaque foreign body. RAD/Hand Min 3 Views IMPRESSION: Soft tissue swelling. No soft tissue gas or foreign body. No visible bone or joint changes with the exception of chronic change at the distal fifth digit. Electronically Signed: Kimberly Luo MD at 23:17 EDT ,
[2024-07-08] MEDS: Cefazolin 2 GM in 0.9% Normal Saline (100mL Bag) 100 ML IV (22:09)
[2024-07-08 22:15] LABS: Erythrocyte Sedimentation Rate 63 mm/hr (0-20)
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
[2024-07-08] MEDS: Vancomycin HCl 2,000 MG in 0.9% Normal Saline (500mL Bag) 500 ML 250 MG IV (23:23)
[2024-07-09] VITALS (7 sets, daily range): BP systolic 110–158; BP diastolic 56–78; PULSE 89–97; RESP 16–18; TEMP 36.3–37.1; O2SAT 95–99; BMI 28.2
[2024-07-09] MEDS: Potassium Chloride Oral Tablet 20 MEQ 40 MEQ PO (00:40)
[2024-07-09 00:52] LABS: Bedside Glucose 144 mg/dL (74-106)
--- NOTE | 2024-07-09 00:54 | PCM.RX.CS ---
Consult Antibiotic Management Pharmacy has been consulted to manage selected antibiotic: Vancomycin Type of Intervention Type of Consult: New start Suspected Infection Suspected Infection: Skin/Soft tissue Labs Labs: Sodium 145 mmol/L (136-145) 07/08/24 19:10 Potassium 3.4 mmol/L (3.5-5.1) L 07/08/24 19:10 Chloride 108 mmol/L (98-107) H 07/08/24 19:10 Carbon Dioxide 23.0 mmol/L (21.0-32.0) 07/08/24 19:10 Anion Gap 14 (5-15) 07/08/24 19:10 BUN 39 mg/dL (7-18) H 07/08/24 19:10 Creatinine 1.23 mg/dL (0.70-1.30) 07/08/24 19:10 Est GFR (MDRD) Af Amer 76 mL/min (>60) 07/08/24 19:10 Est GFR (MDRD) Non-Af 63 mL/min (>60) 07/08/24 19:10 BUN/Creatinine Ratio 31.7 RATIO (10-20) H 07/08/24 19:10 Glucose 143 mg/dL (74-106) H 07/08/24 19:10 Dosing Weight Weight used for dosin.6 kg Estimated Creatinine Clearance Estimated Creatinine Clearance: 65.6ml/min Goal Trough Goal Trough: 15-20 mcg/mL Pharmacy Plan for Drug Dosing Pharmacy Plan for Drug Dosing: NEW START IV VANCOMYCIN Consulting Physician: Dr. Ken Baer Indication: Cellulitis Goal Trough: 15-20 SrCr: 1.23 CrCl: 65.6 ml/min Comments: pt received a 2000mg x1 dose of vancomycin in the ER on 07/08/24 at 2323 Vancomycin Dose: based on patients weight and renal function, recommend an initial dose of 1000mg q12h starting 12 hours after the ER dose. Trough prior to the 4th total dose Pending Level: 07/10/24 at 1100 Pharmacy Service will continue to monitor and adjust dosing as required. Follow-Up Labs Follow-Up Labs: Trough: Vancomycin (07/10/24 at 1100)
[2024-07-09] MEDS: KCL 20MEQ in 0.9% NS 20 MEQ/1,000 ML IV.SOLN. 70 MEQ IV (01:57)
[2024-07-09] MEDS: Menthol/Lanolin/Calamine/Znox 113 GM Tube 1 APPLIC TOPICAL ×3 (05:45→21:09)
[2024-07-09] MEDS: Nystatin Powder 15gm Bottle 1 APPLIC TOPICAL ×3 (05:45→21:09)
[2024-07-09] MEDS: Cefazolin 1 GM/50 ML BAG IV ×3 (05:45→21:10)
[2024-07-09] MEDS: Insulin Lispro 100 UNIT/ML INSULN.PEN SC ×4 (06:36→21:21)
[2024-07-09 07:03] LABS: Absolute Lymphocyte Count 1.29 X10^3/uL (0.83-4.51); Absolute Neutrophil Count 15.1 X10^3/uL (2.0-7.7); Basophil# 0.08 X10^3/uL; Basophil% 0.4 % (0-1); Eosinophil# 0.04 X10^3/uL; Eosinophils% 0.2 % (0-5); Hematocrit 37.7 % (40-54); Lymphocyte # 1.29 X10^3/ul (0.83-4.51); Lymphocyte % 7.1 % (19-41); Mean Corp Hgb Conc 31.8 g/dL (32-36); Mean Corpuscular Hgb 28.4 pg (27.0-32.0); Mean Corpuscular Volume 89.1 fL (80-94); Monocyte% 8.3 % (0-10); NRBC Flagged by Analyzer 0 % (0-5); Neutrophil # 15.06 X10^3/uL (2.7-7.7); Neutrophil % 83.4 % (47-70); Platelet Count 356 K/mm3 (150-450); RBC Distribution Width CV 13.4 % (11.6-14.6); RBC Distribution Width SD 43.9 fl (35.1-43.9); Red Blood Count 4.23 M/mm3 (4.6-6.2); White Blood Count 18.1 K/mm3 (4.4-11.0)
[2024-07-09 07:07] LABS: Bedside Glucose 176 mg/dL (74-106)
[2024-07-09 07:42] LABS: ALB/GLOB Ratio 0.5 RATIO (0.9-2.4); AST(SGOT) 39 U/L (15-37); Alanine Aminotransfer ALT/SGPT 17 U/L (16-61); Albumin, Serum 2.2 g/dL (3.2-5.0); Alkaline Phosphatase 98 U/L (45-117); Anion Gap 12 (5-15); BUN 43 mg/dL (7-18); BUN/Creat Ratio 30.1 RATIO (10-20); Calcium,Total 8.3 mg/dL (8.5-10.1); Chloride 109 mmol/L (98-107); Creatinine, Serum 1.43 mg/dL (0.70-1.30); EST Glomerular Filtration Rate 53 mL/min (>60); Est Glom Filt Rate - Afr Amer 64 mL/min (>60); Estimated Creatinine Clearance 56.13 ml/min; Globulin 4.1 g/dL (2.2-4.2); Glucose 172 mg/dL (74-106); Magnesium 2.3 mg/dL (1.6-2.6); Phosphorus 4.7 mg/dL (2.5-4.9); Potassium 3.7 mmol/L (3.5-5.1); Protein, Total 6.3 g/dL (6.4-8.2); Sodium Level 142 mmol/L (136-145)
[2024-07-09] MEDS: Ascorbic Acid 500 MG Tablet 1000 MG PO ×2 (08:28→16:45)
--- NOTE | 2024-07-09 08:43 | PN.HOSP_ITS ---
Reason for Visit Reason for Visit: Diagnoses Type 2 diabetes mellitus with diabetic polyneuropathy (07/08/24) Type 2 diabetes mellitus with hyperglycemia (07/08/24) Dehydration (07/08/24) Hypokalemia (07/08/24) Peripheral vascular disease, unspecified (07/08/24) Cellulitis of left finger (07/08/24) Cellulitis, unspecified (07/08/24) Dizziness and giddiness (07/08/24) Acquired absence of left leg below knee (07/08/24) Subjective Subjective Patient reports swelling and erythema in fingers still present but slightly better than yesterday, no further vertigo episodes at this time, not presently feeling short of breath Objective Data Objective Data Vital Signs: Vital Signs Temp Pulse Resp BP Pulse Ox O2 Del Method 97.8 F 97 16 110/73 95 Room Air 07/09/24 08:13 07/09/24 08:13 07/09/24 08:13 07/09/24 08:13 07/09/24 08:13 07/09/24 08:13 Oxygen Delivery Method Room Air Weight: 86.6 kg Body Mass Index (BMI) 28.2 Intake & Output: Intake and Output for Last 24 Hours 07/07/24 07/08/24 07/09/24 23:59 23:59 23:59 Intake Total 500 / 500 700 / 700 Output Total 750 / 750 Balance 500 / 500 -50 / -50 Lab / Micro Data 07/09/24 06:05 07/09/24 06:05 Labs: Laboratory Results - last 24 hr 07/08/24 19:10: WBC 17.1 H, RBC 4.51 L, Hgb 12.8 L, Hct 39.4 L, MCV 87.4, MCH 28.4, MCHC 32.5, RDW Std Deviation 42.3, RDW Coeff of Cheri 13.2, Plt Count 351, MPV 9.9, Immature Gran % (Auto) 0.500, Neut % (Auto) 88.7 H, Lymph % (Auto) 5.3 L, Leake % (Auto) 5.0, Eos % (Auto) 0.1, Baso % (Auto) 0.4, Absolute Neuts (auto) 15.2 H, Absolute Lymphs (auto) 0.90, Nucleated RBC % 0, ESR 63 H, Sodium 145, P otassium 3.4 L, Chloride 108 H, Carbon Dioxide 23.0, Anion Gap 14, BUN 39 H, Creatinine 1.23, Estim Creat Clear Calc 65.63, Est GFR (MDRD) Af Amer 76, Est GFR (MDRD) Non-Af 63, BUN/Creatinine Ratio 31.7 H, Glucose 143 H, Calcium 9.3, C -React Prot Ext Range 123.00 H 07/09/24 00:10: POC Glucose 144 H 07/09/24 06:05: WBC 18.1 H, RBC 4.23 L, Hgb 12.0 L, Hct 37.7 L, MCV 89.1, MCH 28.4, MCHC 31.8 L, RDW Std Deviation 43.9, RDW Coeff of Cheri 13.4, Plt Count 356, MPV 10.0, Immature Gran % (Auto) 0.600, Neut % (Auto) 83.4 H, Lymph % (Auto) 7.1 L, Leake % (Auto) 8.3, Eos % (Auto) 0.2, Baso % (Auto) 0.4, Absolute Neuts (auto) 15.1 H, Absolute Lymphs (auto) 1.29, Nucleated RBC % 0, Sodium 142, Potassium 3.7, Chloride 109 H, Carbon Dioxide 21.0, Anion Gap 12, BUN 43 H, Creatinine 1.43 H, Estim Creat Clear Calc 56.13, Est GFR (MDRD) Af Amer 64, Est GFR (MDRD) Non-Af 53 L, BUN/Creatinine Ratio 30.1 H, Glucose 172 H, Calcium 8.3 L, Phosphorus 4.7, Magnesium 2.3, Total Bilirubin 0.40, AST 39 H, ALT 17, Alkaline Phosphatase 98, Total Protein 6.3 L, Albumin 2.2 L, Globulin 4.1, A lbumin/Globulin Ratio 0.5 L, TSH 1.090 07/09/24 06:32: POC Glucose 176 H Radiography Diagnostic Testing: Radiology Impression Head/Neck CTA 07/08/24 19:54 IMPRESSION: No acute intracranial abnormality. No high-grade carotid stenosis. No large vessel occlusion. Degenerative and postoperative changes of the cervical spine with at least mild spinal stenosis. Electronically Signed: Kimberly Luo MD at 21:50 EDT Reading Location ID and State: [facility] / [place] Tel , Service support , Chest X-Ray 07/08/24 20:02 IMPRESSION: No radiographic evidence of acute cardiopulmonary disease. Electronically Signed: Kimberly Luo MD at 21:27 EDT Reading Location ID and State: [facility] / [place] Tel , Service support , Hand X-Ray 07/08/24 22:00 IMPRESSION: Soft tissue swelling. No soft tissue gas or foreign body. No visible bone or joint changes with the exception of chronic change at the distal fifth digit. Electronically Signed: Kimberly Luo MD at 23:17 EDT Reading Location ID and State: [facility] / [place] Tel , Service support , Physical Exam Narrative General: Alert, oriented, no apparent distress HEENT: Atraumatic, normocephalic Eyes: Anicteric, normal conjunctiva, extraocular movements grossly intact Neck: Supple Respiratory: Clear to auscultation bilaterally, normal respiratory effort Cardiovascular: Regular rate GI: Soft, nontender, nondistended Extremities: No edema Musculoskeletal: Moving all extremities Neuro: No overt focal neurological deficits Skin: Left index finger with erythema and swelling, slightly receded from marked line Psych: Cooperative Assessment & Plan Assessment/Plan (1) Cellulitis: QUALIFIERS: Laterality: left Site of cellulitis: extremity Site of cellulitis of extremity: finger Qualified Code(s): L03.012 - Cellulitis of left finger PLAN: Plan # Left finger swelling and cellulitis -With accompanied white blood cell count but is increased to 18 as well as ESR of 60 and CRP of 123 -Finger x-ray with only soft tissue swelling however does have fairly high inflammatory markers -On cefazolin and also vancomycin given his history of MRSA -Will obtain a blood culture given elevated white blood cell count inflammatory markers -Continue current antibiotics, especially given patient's history of polymicrobial infections and amputations will consult infectious disease for further antibiotic recommendations -Can consider plastics consult if any concern develops for abscess or need for surgical intervention for finger -On IV fluids -Pain control -Continue supportive care # WILLARD -Baseline creatinine seems around 0.8-1 -Creatinine 1.23 on arrival and is up trended to 1.43 -Continue IV fluids but given improvement in potassium we will hold off on additional potassium and fluids and switch to normal saline # Vertiginous symptoms -Large part of what brought patient to the hospital -Meclizine as needed -Monitor for recurrence, can consider MRI if symptoms are atypical or recurrent but do not feel it is necessary at this time #Type 2 diabetes mellitus -Glucose checks and sliding scale insulin -Continue 12 units twice daily of glargine # History left foot necrosis and osteomyelitis status post left BKA -Noted -Supportive care #? History of PE -Patient reports history of bilateral PEs many years ago, unclear if provoked or unprovoked, has been off anticoagulation also for many years but unclear how long he was supposed to be on it -Follow-up with PCP on discharge, continue DVT prophylaxis #DVT ppx: Lovenox subcu Randi Barksdale MD Time spent in the patient's overall evaluation,decision-making process, review of diagnostic data, adjustment of management, discussion with other providers, nursing nursing and ancillary staff involved in patient's care documentation, 38 minutes Charges/Coding Visit Charges Inpatient E&M: 63326 [facility] Hosp L2
[2024-07-09 09:17] LABS: Erythrocyte Sedimentation Rate 52 mm/hr (0-20)
[2024-07-09 09:53] LABS: Hemoglobin A1c 7.4 % (3.8-5.6)
[2024-07-09] MEDS: 0.9% Normal Saline (1000mL) 1,000 ML 100 ML IV ×2 (10:09→21:07)
[2024-07-09] MEDS: Insulin Glargine-YFGN 100 UNIT/ML Pen 12 UNIT SC ×2 (10:12→21:20)
[2024-07-09] MEDS: Lactobacillis Acidophilus 1 CAP PO ×4 (10:12→21:08)
[2024-07-09] MEDS: Enoxaparin 40 MG/0.4 ML Syringe SC (10:13)
[2024-07-09] MEDS: Cholecalciferol (Vit D3) 125 MCG CAPSULE (5,000 UNITS) PO (10:14)
[2024-07-09] MEDS: Zinc Sulfate 50 mg zinc (220 mg) ORAL capsule PO (10:14)
[2024-07-09] MEDS: Vancomycin IV 1,000 MG/200 ML BAG 200 MG IV ×2 (11:50→23:03)
[2024-07-09] MEDS: 0.9% Saline Lock 10 ML Syringe IV (11:51)
[2024-07-09 12:26] LABS: Bedside Glucose 158 mg/dL (74-106)
--- NOTE | 2024-07-09 15:10 | CASEMGMT ---
SALMA MCCAULEY Face to Face with patient for initial transition planning/care coordination assessment. RN GARRICK introduced self and role at [facility]. Patient lying in bed, alert and oriented. Patient willing to participate in assessment and is able to answer all questions appropriately. Care providers, pharmacy, and demographics verified. Strata: 3 PCP: Sol Specialists: none Preferred Pharmacy: [facility] Insurance: Ahsan JOYA Dual Prescription Benefit: yes Living Will/HPOA: none LNOK: patient declines to list NOK Living Arrangements: Patient lives alone in a first floor apartment with no steps to enter. Patient states he is normally independent but has not been able to care for himself lately Transportation: self, Provide a Ride DME/HHC: Patient has grab bars, walker, and wheelchair at home. No previous HHC. Patient states he has been to [place] in the past and will not go back there. Patient states that he is unable to care for himself at this time. Patient is agreeable to go to SNF, CM to provide patient with list to review. Patient states he has no further needs or concerns at this time. SW work updated regarding request for SNF at discharge. CM to follow for discharge planning needs that may arise. Disposition Plan: Patient to discharge to SNF pending acceptance and precert. Sandra ROSENBAUM, RN, CM
[2024-07-09 17:08] LABS: Bedside Glucose 185 mg/dL (74-106)
[2024-07-10] VITALS (8 sets, daily range): BP systolic 144–185; BP diastolic 69–94; PULSE 77–137; RESP 16–18; TEMP 36.2–36.8; O2SAT 97–99; BMI 28.0
[2024-07-10 00:08] LABS: Bedside Glucose 155 mg/dL (74-106)
[2024-07-10] MEDS: Cefazolin 1 GM/50 ML BAG IV ×3 (05:59→23:01)
[2024-07-10 07:25] LABS: Bedside Glucose 127 mg/dL (74-106)
[2024-07-10 07:36] LABS: Erythrocyte Sedimentation Rate 45 mm/hr (0-20)
[2024-07-10 07:38] LABS: Absolute Lymphocyte Count 1.81 X10^3/uL (0.83-4.51); Basophil# 0.09 X10^3/uL; Basophil% 0.6 % (0-1); Eosinophil# 0.28 X10^3/uL; Eosinophils% 1.7 % (0-5); Hematocrit 34.2 % (40-54); Hemoglobin 10.9 g/dL (13.0-16.5); Lymphocyte # 1.81 X10^3/ul (0.83-4.51); Lymphocyte % 11.1 % (19-41); Mean Corp Hgb Conc 31.9 g/dL (32-36); Mean Corpuscular Hgb 28.3 pg (27.0-32.0); Mean Corpuscular Volume 88.8 fL (80-94); Monocyte# 1.12 X10^3/uL; Monocyte% 6.8 % (0-10); NRBC Flagged by Analyzer 0 % (0-5); Neutrophil # 12.99 X10^3/uL (2.7-7.7); Neutrophil % 79.4 % (47-70); Platelet Count 331 K/mm3 (150-450); RBC Distribution Width CV 13.6 % (11.6-14.6); RBC Distribution Width SD 44.4 fl (35.1-43.9); Red Blood Count 3.85 M/mm3 (4.6-6.2); White Blood Count 16.4 K/mm3 (4.4-11.0)
--- NOTE | 2024-07-10 09:15 | CASEMGMT ---
Per RN CM and therapy SNF is recommended and patient would like to go to a SNF. SW met with patient. Introduced self and role at [facility]. SW provided patient with a list of intermediate facility providers including quality and resource use data and consistent with patient?s preferred geographic region, medical needs, and insurance network were provided from the [employer] Guide. SW asked patient to review the list and provide SW with 3 preferences. SW asked patient if he still had the transportation and food resources SW gave him in March. Patient said he thinks he does. Patient then told SW he needs someone to help him sit up so he can eat. SW hit patient's call button for him. At that time 2 [employer] came into the room to assist patient. SW stepped out. Trina GRIFFITH
[2024-07-10] MEDS: Ascorbic Acid 500 MG Tablet 1000 MG PO ×2 (09:25→17:34)
[2024-07-10] MEDS: Lactobacillis Acidophilus 1 CAP PO ×4 (09:25→23:05)
[2024-07-10] MEDS: Insulin Glargine-YFGN 100 UNIT/ML Pen 12 UNIT SC ×2 (09:25→22:53)
[2024-07-10] MEDS: Enoxaparin 40 MG/0.4 ML Syringe SC (09:26)
[2024-07-10] MEDS: Menthol/Lanolin/Calamine/Znox 113 GM Tube 1 APPLIC TOPICAL ×2 (09:27→22:53)
[2024-07-10] MEDS: Nystatin Powder 15gm Bottle 1 APPLIC TOPICAL ×2 (09:27→22:52)
[2024-07-10] MEDS: Zinc Sulfate 50 mg zinc (220 mg) ORAL capsule PO (09:27)
[2024-07-10] MEDS: Cholecalciferol (Vit D3) 125 MCG CAPSULE (5,000 UNITS) PO (09:27)
[2024-07-10 09:32] LABS: Anion Gap 6 (5-15); BUN 34 mg/dL (7-18); BUN/Creat Ratio 30.4 RATIO (10-20); Calcium,Total 8.1 mg/dL (8.5-10.1); Chloride 115 mmol/L (98-107); Creatinine, Serum 1.12 mg/dL (0.70-1.30); EST Glomerular Filtration Rate 70 mL/min (>60); Est Glom Filt Rate - Afr Amer 85 mL/min (>60); Estimated Creatinine Clearance 71.52 ml/min; Glucose 131 mg/dL (74-106); Magnesium 2.4 mg/dL (1.6-2.6); Potassium 3.4 mmol/L (3.5-5.1); Sodium Level 142 mmol/L (136-145)
--- NOTE | 2024-07-10 10:32 | CASEMGMT ---
SW spoke with patient about [facility] services. Patient stated he has heard of [facility]. He had an assessment in the past, but at that time he did not have a PCP so they would not take him. Patient stated he has a PCP now, but he has not seen her in over a year. Patient was agreeable to SW making a referral to [facility]. SW made a referral on [facility]'s website. Trina Booth MSW NACHO
[2024-07-10] MEDS: Insulin Lispro 100 UNIT/ML INSULN.PEN SC ×3 (11:26→22:54)
[2024-07-10] MEDS: Vancomycin Trough/Random Due 1 LAB MC (11:37)
[2024-07-10 11:49] LABS: Bedside Glucose 174 mg/dL (74-106)
--- NOTE | 2024-07-10 12:00 | PCM.RX.CS ---
Consult Antibiotic Management Pharmacy has been consulted to manage selected antibiotic: Vancomycin Type of Intervention Type of Consult: Follow-up Suspected Infection Suspected Infection: Skin/Soft tissue Prior Doses of Antibiotics Prior Doses of Antibiotics Received/Current Regimen: 07/08/24: 2000mg x1 @ 2323 07/09/24 1000mg @ 1150 07/09/24 1000mg @ 2303 Labs Labs: Sodium 142 mmol/L (136-145) 07/10/24 08:38 Potassium 3.4 mmol/L (3.5-5.1) L 07/10/24 08:38 Chloride 115 mmol/L (98-107) H 07/10/24 08:38 Carbon Dioxide 21.0 mmol/L (21.0-32.0) 07/10/24 08:38 Anion Gap 6 (5-15) 07/10/24 08:38 BUN 34 mg/dL (7-18) H 07/10/24 08:38 Creatinine 1.12 mg/dL (0.70-1.30) 07/10/24 08:38 Est GFR (MDRD) Af Amer 85 mL/min (>60) 07/10/24 08:38 Est GFR (MDRD) Non-Af 70 mL/min (>60) 07/10/24 08:38 BUN/Creatinine Ratio 30.4 RATIO (10-20) H 07/10/24 08:38 Glucose 131 mg/dL (74-106) H 07/10/24 08:38 Vancomycin Trough 25.0 ug/mL (5.0-15.0) H 07/10/24 10:52 Dosing Weight Weight used for dosin kg Estimated Creatinine Clearance Estimated Creatinine Clearance: 72 Goal Trough Goal Trough: 15-20 mcg/mL Pharmacy Plan for Drug Dosing Pharmacy Plan for Drug Dosing: Hold Vancomycin random Vancomycin level ordered for 07/11/24 @ 0600 Pharmacy Service will continue to monitor and adjust dosing as required. Date/Time Labs Ordered Labs to be done on [date and time ordered]: 07/11/24 @ 0600
--- NOTE | 2024-07-10 12:52 | PCM.PN.HOSP ---
Reason for Visit Reason for Visit: Diagnoses Type 2 diabetes mellitus with diabetic polyneuropathy (07/08/24) Type 2 diabetes mellitus with hyperglycemia (07/08/24) Dehydration (07/08/24) Hypokalemia (07/08/24) Peripheral vascular disease, unspecified (07/08/24) Cellulitis of left finger (07/08/24) Cellulitis, unspecified (07/08/24) Dizziness and giddiness (07/08/24) Acquired absence of left leg below knee (07/08/24) Subjective Subjective Patient having some increased swelling, pain, warmth in the left index finger, also reports sometimes he will feel a sticking sensation when he is eating which will be improved with drinking liquids, reports this is fairly new Objective Data Objective Data Vital Signs: Vital Signs Temp Pulse Resp BP Pulse Ox O2 Del Method 97.9 F 81 16 154/72 H 97 Room Air 07/10/24 08:00 07/10/24 08:00 07/10/24 08:00 07/10/24 08:00 07/10/24 08:00 07/10/24 10:00 Oxygen Delivery Method Room Air Weight: 86.2 kg Body Mass Index (BMI) 28.0 Intake & Output: Intake and Output for Last 24 Hours 07/08/24 07/09/24 07/10/24 23:59 23:59 23:59 Intake Total 500 / 500 2571.83 / 2691.83 995 / 995 Output Total 750 / 1150 1100 / 1100 Balance 500 / 500 1821.83 / 1541.83 -105 / -105 Lab / Micro Data 07/10/24 05:58 07/10/24 08:38 Labs: Laboratory Results - last 24 hr 07/09/24 16:41: POC Glucose 185 H 07/09/24 21:19: POC Glucose 155 H 07/10/24 05:58: WBC 16.4 H, RBC 3.85 L, Hgb 10.9 L, Hct 34.2 L, MCV 88.8, MCH 28.3, MCHC 31.9 L, RDW Std Deviation 44.4 H, RDW Coeff of Cheri 13.6, Plt Count 331, MPV 10.0, Immature Gran % (Auto) 0.400, Neut % (Auto) 79.4 H, Lymph % (Auto) 11.1 L, Floyd % (Auto) 6.8, Eos % (Auto) 1.7, Baso % (Auto) 0.6, Absolute Neuts (auto) 13.0 H, Absolute Lymphs (auto) 1.81, Nucleated RBC % 0, ESR 45 H, Sodium Cancelled, Potassium Cancelled, Chloride Cancelled, Carbon Dioxide Cancelled, Anion Gap Cancelled, BUN Cancelled, Creatinine Cancelled, Estim Creat Clear Calc Cancelled, Est GFR (MDRD) Af Amer Cancelled, Est GFR (MDRD) Non-Af Cancelled, BUN/Creatinine Ratio Cancelled, Glucose Cancelled, Calcium Cancelled, Phosphorus Cancelled, Magnesium Cancelled, C-React Prot Ext Range Cancelled 07/10/24 06:07: POC Glucose 127 H 07/10/24 08:38: Sodium 142, Potassium 3.4 L, Chloride 115 H, Carbon Dioxide 21.0, Anion Gap 6, BUN 34 H, Creatinine 1.12, Estim Creat Clear Calc 71.52, Est GFR (MDRD) Af Amer 85, Est GFR (MDRD) Non-Af 70, BUN/Creatinine Ratio 30.4 H, Glucose 131 H, Calcium 8.1 L, Magnesium 2.4, C-React Prot Ext Range 81.00 H 07/10/24 10:52: Vancomycin Trough 25.0 H 07/10/24 11:24: POC Glucose 174 H Physical Exam Narrative General: Alert, oriented, no apparent distress HEENT: Atraumatic, normocephalic Eyes: Anicteric, normal conjunctiva, extraocular movements grossly intact Neck: Supple Respiratory: Clear to auscultation bilaterally, normal respiratory effort Cardiovascular: Regular rate GI: Soft, nontender, nondistended Extremities: No edema Musculoskeletal: Moving all extremities Neuro: No overt focal neurological deficits Skin: Left index finger with erythema and swelling, more concentrated erythematous region proximally, overall more swollen with more tenderness over lateral surface compared to medial surface, decreased range of motion Psych: Cooperative Assessment & Plan Assessment/Plan (1) Cellulitis: QUALIFIERS: Site of cellulitis: extremity Site of cellulitis of extremity: finger Laterality: left Qualified Code(s): L03.012 - Cellulitis of left finger PLAN: Plan # Left finger swelling and cellulitis -With accompanied white blood cell count but is increased to 18 as well as ESR of 60 and CRP of 123 -Finger x-ray with only soft tissue swelling however does have fairly high inflammatory markers -On cefazolin and also vancomycin given his history of MRSA -Will obtain a blood culture given elevated white blood cell count inflammatory markers -Continue current antibiotics, especially given patient's history of polymicrobial infections and amputations will consult infectious disease for further antibiotic recommendations -Can consider plastics consult if any concern develops for abscess or need for surgical intervention for finger -On IV fluids -Pain control -Continue supportive care -07/10: Patient with increased swelling and erythema with reduced mobility despite IV antibiotics even with downtrending inflammatory markers, ID consulted, plastic surgery consulted for further evaluation given worsening now limiting mobility # Abnormal swallowing sensation -Patient has a sticking sensation in his chest when he is eating more so solids than liquids -Adding Protonix -Consulted speech therapy ?barium swallow/swallow eval -Depending on findings, symptoms, recommendations may end up needing GI consult # Vertiginous symptoms -Large part of what brought patient to the hospital -Meclizine as needed -Monitor for recurrence, can consider MRI if symptoms are atypical or recurrent but do not feel it is necessary at this time -07/10: Has not had any further incidents, no MRI at this time or further workup. 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 History of PE -Patient reports history of bilateral PEs many years ago, unclear if provoked or unprovoked, has been off anticoagulation also for many years but unclear how long he was supposed to be on it -Follow-up with PCP on discharge, continue DVT prophylaxis # WILLARD?resolved -Baseline creatinine seems around 0.8-1 -Creatinine 1.23 on arrival and is up trended to 1.43 -Continue IV fluids but given improvement in potassium we will hold off on additional potassium and fluids and switch to normal saline -07/10: Creatinine 1.12, improved #DVT ppx: Lovenox subcu Randi Barksdale MD Time spent in the patient's overall evaluation,decision-making process, review of diagnostic data, adjustment of management, discussion with other providers, nursing nursing and ancillary staff involved in patient's care documentation, 37 minutes Charges/Coding Visit Charges Inpatient E&M: 71481 Subs Hosp L2
--- NOTE | 2024-07-10 13:47 | MRI_ITS ---
INDICATION: L hand inflammation EXAMINATION: MRI - LEFT MR Hand WO/W Contrast TECHNIQUE: Multiplanar and multisequence MR images of the LEFT hand. IV Contrast Dosage and Agent: 17 mL of Clariscan COMPARISON: Prior study dated: Radiograph from 07/08/2024 FINDINGS: Motion somewhat limits the evaluation, as well as the [id number]. BONE: No fracture or abnormal bone marrow signal. JOINTS: [No joint effusion or synovitis. Joint spaces are maintained. MUSCLES: Unremarkable. SUPERFICIAL SOFT TISSUES: Diffuse soft tissue swelling, particularly involving the dorsum of the hand. There is no fluid collection. There is also mild swelling seen involving the second digit along the palmar aspect of the hand at the level of the proximal phalanx. TENDONS: The tendons are intact. No focal abnormality identified involving the extensor tendons. There is fluid surrounding the second digit flexor tendon. This tracks along the course of the proximal phalanx. OTHER SOFT TISSUES: No ganglion. MRI/Upper Ext No Joint W/WO Cont IMPRESSION: Prominent diffuse soft tissue swelling particularly along the dorsum of the hand. No fluid collection. Fluid tracking along the second digit flexor tendon at the level of the proximal phalanx. This may represent tenosynovitis. No bone marrow signal abnormality. Electronically Signed: Dilan Richard MD at 16:41 EDT ,
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
[2024-07-10] MEDS: Potassium Chloride Oral Soln 20 MEQ/15 ML UDC PO (17:33)
[2024-07-10 17:57] LABS: Bedside Glucose 235 mg/dL (74-106)
[2024-07-10] MEDS: 0.9% Saline Lock 10 ML Syringe IV (22:54)
[2024-07-11] VITALS (7 sets, daily range): BP systolic 151–168; BP diastolic 71–89; PULSE 73–137; RESP 16–18; TEMP 36.1–36.7; O2SAT 96–98; BMI 27.9; BMI 27.8
[2024-07-11] MEDS: Digoxin 250 MCG/ML Ampul IV (00:22)
[2024-07-11 00:23] LABS: Bedside Glucose 203 mg/dL (74-106)
--- NOTE | 2024-07-11 06:05 | PN.SURG_ITS ---
Subjective Subjective Reports some improvement in pain with elevation of RUE (has the wedge elevator in place and has been compliant). No pain in the palm or pain with movement of the flexor tendon. Objective Data Objective Data Vital Signs: Vital Signs Temp Pulse Resp BP Pulse Ox O2 Del Method 97.0 F L 87 16 151/89 H 96 Room Air 07/11/24 02:38 07/11/24 02:38 07/11/24 02:38 07/11/24 02:38 07/11/24 02:38 07/11/24 02:39 Oxygen Delivery Method Room Air Weight: 189 lb 6.033 oz Body Mass Index (BMI) 27.9 Intake & Output: Intake and Output for Last 24 Hours 07/09/24 07/10/24 07/11/24 23:59 23:59 23:59 Intake Total 2571.83 / 2691.83 1335 / 1335 Output Total 750 / 1150 2300 / 2300 Balance 1821.83 / 1541.83 -965 / -965 Lab / Micro Data 07/10/24 05:58 07/10/24 08:38 Labs: Laboratory Results - last 24 hr 07/10/24 05:58: WBC 16.4 H, RBC 3.85 L, Hgb 10.9 L, Hct 34.2 L, MCV 88.8, MCH 28.3, MCHC 31.9 L, RDW Std Deviation 44.4 H, RDW Coeff of Cheri 13.6, Plt Count 331, MPV 10.0, Immature Gran % (Auto) 0.400, Neut % (Auto) 79.4 H, Lymph % (Auto) 11.1 L, Phillips % (Auto) 6.8, Eos % (Auto) 1.7, Baso % (Auto) 0.6, Absolute Neuts (auto) 13.0 H, Absolute Lymphs (auto) 1.81, Nucleated RBC % 0, ESR 45 H, Sodium Cancelled, Potassium Cancelled, Chloride Cancelled, Carbon Dioxide Cancelled, Anion Gap Cancelled, BUN Cancelled, Creatinine Cancelled, Estim Creat Clear Calc Cancelled, Est GFR (MDRD) Af Amer Cancelled, Est GFR (MDRD) Non-Af Cancelled, BUN/Creatinine Ratio Cancelled, Glucose Cancelled, Calcium Cancelled, Phosphorus Cancelled, Magnesium Cancelled, C-React Prot Ext Range Cancelled 07/10/24 06:07: POC Glucose 127 H 07/10/24 08:38: Sodium 142, Potassium 3.4 L, Chloride 115 H, Carbon Dioxide 21.0, Anion Gap 6, BUN 34 H, Creatinine 1.12, Estim Creat Clear Calc 71.52, Est GFR (MDRD) Af Amer 85, Est GFR (MDRD) Non-Af 70, BUN/Creatinine Ratio 30.4 H, G lucose 131 H, Calcium 8.1 L, Magnesium 2.4, C-React Prot Ext Range 81.00 H 07/10/24 10:52: Vancomycin Trough 25.0 H 07/10/24 11:24: POC Glucose 174 H 07/10/24 17:32: POC Glucose 235 H 07/10/24 22:50: POC Glucose 203 H Radiography Diagnostic Testing: Radiology Impression Upper Extremity MRI 07/10/24 13:47 IMPRESSION: Prominent diffuse soft tissue swelling particularly along the dorsum of the hand. No fluid collection. Fluid tracking along the second digit flexor tendon at the level of the proximal phalanx. This may represent tenosynovitis. No bone marrow signal abnormality. Electronically Signed: Dilan Richard MD at 16:41 EDT , Physical Exam Narrative Left upper extremity Persistent swelling and redness on the left index finger, worse on the dorsum, but some redness on the volar aspect as well. No pain over the A1 magnolia with palpation. No pain with flexor tendon excursion/passive extension of the flexor tendon. No pain radiating into the palm. No pain with axial loading of any of the joints of the left index finger. No pain over the palm or the carpal tunnel. No fluctuance on the finger/hand Motor: he is able to bend and extend all joints of the left upper extremity, but unable to make a full fist secondary to swelling and pain. Vascular: Less than 2-second capillary refill in all digits. Const alert and oriented x3 Eyes EOMs intact bilaterally Lymph Lymphatic: no lymphadenopathy noted Lymphatic Narrative: No lymphadenopathy in the left upper extremity at the elbow or epitrochlear region, no streaking erythema. Resp normal respiratory effort Cardio Rate: regular rate Assessment & Plan Assessment/Plan (1) Cellulitis of left hand: (2) Cellulitis: QUALIFIERS: Site of cellulitis: extremity Site of cellulitis of extremity: finger Laterality: left Qualified Code(s): L03.012 - Cellulitis of left finger PLAN: Continue in arm elevator Agree with continued broad-spectrum antibiotics. Cellulitis only at this point, no abscess or infection of the flexor tendon or joint. Plastics will continue to follow for serial exams and to check for abscess formation. Charges/Coding Visit Charges Inpatient E&M: 49853 Subs Hosp L1
[2024-07-11 06:28] LABS: Absolute Lymphocyte Count 1.67 X10^3/uL (0.83-4.51); Absolute Neutrophil Count 6.1 X10^3/uL (2.0-7.7); Basophil# 0.04 X10^3/uL; Basophil% 0.4 % (0-1); Eosinophil# 0.35 X10^3/uL; Eosinophils% 3.9 % (0-5); Hematocrit 33.8 % (40-54); Hemoglobin 10.9 g/dL (13.0-16.5); Lymphocyte # 1.67 X10^3/ul (0.83-4.51); Lymphocyte % 18.6 % (19-41); Mean Corp Hgb Conc 32.2 g/dL (32-36); Mean Corpuscular Hgb 28.5 pg (27.0-32.0); Mean Corpuscular Volume 88.5 fL (80-94); Mean Platelet Vol. 9.9 fl (6.2-12.0); Monocyte# 0.81 X10^3/uL; NRBC Flagged by Analyzer 0 % (0-5); Neutrophil # 6.08 X10^3/uL (2.7-7.7); Neutrophil % 67.8 % (47-70); Platelet Count 337 K/mm3 (150-450); RBC Distribution Width CV 13.5 % (11.6-14.6); RBC Distribution Width SD 43.8 fl (35.1-43.9); Red Blood Count 3.82 M/mm3 (4.6-6.2)
[2024-07-11] MEDS: Cefazolin 1 GM/50 ML BAG IV ×3 (06:39→21:37)
[2024-07-11 06:41] LABS: Anion Gap 4 (5-15); BUN 27 mg/dL (7-18); BUN/Creat Ratio 26.2 RATIO (10-20); Calcium,Total 8.2 mg/dL (8.5-10.1); Chloride 117 mmol/L (98-107); Creatinine, Serum 1.03 mg/dL (0.70-1.30); EST Glomerular Filtration Rate 77 mL/min (>60); Est Glom Filt Rate - Afr Amer 93 mL/min (>60); Estimated Creatinine Clearance 77.65 ml/min; Glucose 132 mg/dL (74-106); Potassium 3.7 mmol/L (3.5-5.1); Sodium Level 146 mmol/L (136-145)
[2024-07-11 06:48] LABS: Vancomycin, Random Level 17.3 ug/mL (0.0-15.0)
[2024-07-11 07:00] LABS: Bedside Glucose 110 mg/dL (74-106)
--- NOTE | 2024-07-11 08:00 | PCM.RX.CS ---
Consult Antibiotic Management Pharmacy has been consulted to manage selected antibiotic: Vancomycin Type of Intervention Type of Consult: Follow-up Suspected Infection Suspected Infection: Skin/Soft tissue Labs Labs: Sodium 146 mmol/L (136-145) H 07/11/24 05:55 Potassium 3.7 mmol/L (3.5-5.1) 07/11/24 05:55 Chloride 117 mmol/L (98-107) H 07/11/24 05:55 Carbon Dioxide 25.0 mmol/L (21.0-32.0) 07/11/24 05:55 Anion Gap 4 (5-15) L 07/11/24 05:55 BUN 27 mg/dL (7-18) H 07/11/24 05:55 Creatinine 1.03 mg/dL (0.70-1.30) 07/11/24 05:55 Est GFR (MDRD) Af Amer 93 mL/min (>60) 07/11/24 05:55 Est GFR (MDRD) Non-Af 77 mL/min (>60) 07/11/24 05:55 BUN/Creatinine Ratio 26.2 RATIO (10-20) H 07/11/24 05:55 Glucose 132 mg/dL (74-106) H 07/11/24 05:55 Vancomycin Trough 25.0 ug/mL (5.0-15.0) H 07/10/24 10:52 Random Vancomycin 17.3 ug/mL (0.0-15.0) H 07/11/24 05:55 Goal Trough Goal Trough: 15-20 mcg/mL Pharmacy Plan for Drug Dosing Pharmacy Plan for Drug Dosing: VANCOMYCIN LEVEL RECEIVED Current Vancomycin Dose: on HOLD (previous dose 1000mg Q12H) Number of Doses Received: 1000mg x2, 2000mg x1 Vancomycin Level: 17.3 Hours Since Last Dose: 31 Renal Function: sCr 1.03 Renal Function Trend: improved with hydration since admission Lab/Micro: pending (history of MRSA) Vancomycin Plan/Comments: Vancomycin 750mg Q12H to start at 10:00 07/11/24 Pending Level: Vancomycin trough @ 21:30 07/12/24 Pharmacy Service will continue to monitor and adjust dosing as required. Follow-Up Labs Follow-Up Labs: Trough: Vancomycin (21:30 07/12/24)
[2024-07-11] MEDS: Cholecalciferol (Vit D3) 125 MCG CAPSULE (5,000 UNITS) PO (09:30)
[2024-07-11] MEDS: Lactobacillis Acidophilus 1 CAP PO ×3 (09:30→21:38)
[2024-07-11] MEDS: Insulin Glargine-YFGN 100 UNIT/ML Pen 12 UNIT SC ×2 (09:30→21:35)
[2024-07-11] MEDS: Ascorbic Acid 500 MG Tablet 1000 MG PO (09:30)
[2024-07-11] MEDS: Zinc Sulfate 50 mg zinc (220 mg) ORAL capsule PO (09:30)
[2024-07-11] MEDS: Pantoprazole Sodium 40 MG Tablet PO (09:30)
[2024-07-11] MEDS: Enoxaparin 40 MG/0.4 ML Syringe SC (09:30)
--- NOTE | 2024-07-11 09:59 | PCM.PN.ID ---
Physical Exam Narrative Hand not any better, still sore, no fever Const alert and no apparent distress General Appearance: cooperative Resp normal air movement and clear to auscultation bilaterally Cardio regular rate and regular rhythm GI soft to palpation, non-tender and non-distended Skin Skin Narrative: L hand increased swelling and redness Neuro CN's II-XII intact bilaterally ID ID: Route of nutrition/ use of supplements: [] Nutritional Intake: [] IV Site: [] Wilkinson Catheter: [] Assessment & Plan Assessment/Plan (1) Diabetic neuropathy associated with type 2 diabetes mellitus: QUALIFIERS: Diabetes mellitus complication detail: diabetic polyneuropathy Qualified Code(s): E11.42 - Type 2 diabetes mellitus with diabetic polyneuropathy (2) Cellulitis of left hand: PLAN: Tenosynovitis seen on MRI. Bcx ngtd. Dr. Sam following. Hand more swollen today. Cont vanc/cefazolin. Will follow
[2024-07-11] MEDS: Vancomycin HCl 750 MG in 0.9% Normal Saline (250mL Bag) 250 ML 250 MG IV ×2 (10:00→22:49)
[2024-07-11] MEDS: Nystatin Powder 15gm Bottle 1 APPLIC TOPICAL ×2 (10:14→23:32)
[2024-07-11] MEDS: Menthol/Lanolin/Calamine/Znox 113 GM Tube 1 APPLIC TOPICAL ×2 (10:14→21:38)
--- NOTE | 2024-07-11 10:25 | CASEMGMT ---
SW met with patient. SW asked patient if he has had a chance to review his list of facilities. Patient asked SW to send referrals to [facility], [facility], and [facility]. Trina GRIFFITH
--- NOTE | 2024-07-11 10:54 | CASEMGMT ---
Addendum entered by Hien Nelson 07/12/24 13:52: [facility] declined referral. Hien Nelson DC Planning Asst. Addendum entered by Hien Nelson 07/11/24 11:28: [facility] declined referral. Hien Nelson DC Planning Asst. Addendum entered by Hien Nelson 07/11/24 11:18: [facility] declined d/t not bed availability. SW updated. Hien Nelson DC Planning Asst. Original Note: Discharge Planning Referral sent to [facility], [facility], and [facility]. Hien Nelson DC Planning Asst.
[2024-07-11] MEDS: Insulin Lispro 100 UNIT/ML INSULN.PEN SC ×2 (14:28→21:34)
[2024-07-11 14:48] LABS: Bedside Glucose 183 mg/dL (74-106)
--- NOTE | 2024-07-11 16:53 | PN.HOSP_ITS ---
Reason for Visit Reason for Visit: Diagnoses Type 2 diabetes mellitus with diabetic polyneuropathy (07/08/24) Type 2 diabetes mellitus with hyperglycemia (07/08/24) Dehydration (07/08/24) Hypokalemia (07/08/24) Peripheral vascular disease, unspecified (07/08/24) Cellulitis of left finger (07/08/24) Cellulitis of left upper limb (07/08/24) Cellulitis, unspecified (07/08/24) Dizziness and giddiness (07/08/24) Acquired absence of left leg below knee (07/08/24) Subjective Subjective Patient still has pain and swelling in finger, trying to keep it elevated. Also has continued to have sticking feeling in center of his chest with pain on eating particularly solids and this has caused him to decrease his p.o. Objective Data Objective Data Vital Signs: Vital Signs Temp Pulse Resp BP Pulse Ox O2 Del Method 98.1 F 76 16 160/75 H 97 Room Air 07/11/24 14:21 07/11/24 14:21 07/11/24 14:21 07/11/24 14:21 07/11/24 14:45 07/11/24 14:21 Oxygen Delivery Method Room Air Weight: 85.9 kg Body Mass Index (BMI) 27.9 Intake & Output: Intake and Output for Last 24 Hours 07/09/24 07/10/24 07/11/24 23:59 23:59 23:59 Intake Total 2571.83 / 2691.83 1335 / 1335 365 / 365 Output Total 750 / 1150 2300 / 2300 1400 / 1400 Balance 1821.83 / 1541.83 -965 / -965 -1035 / -1035 Lab / Micro Data 07/11/24 05:55 07/11/24 05:55 Labs: Laboratory Results - last 24 hr 07/10/24 17:32: POC Glucose 235 H 07/10/24 22:50: POC Glucose 203 H 07/11/24 05:55: WBC 9.0, RBC 3.82 L, Hgb 10.9 L, Hct 33.8 L, MCV 88.5, MCH 28.5, MCHC 32.2, RDW Std Deviation 43.8, RDW Coeff of Cheri 13.5, Plt Count 337, MPV 9.9, Immature Gran % (Auto) 0.300, Neut % (Auto) 67.8, Lymph % (Auto) 18.6 L, [place] % (Auto) 9.0, Eos % (Auto) 3.9, Baso % (Auto) 0.4, Absolute Neuts (auto) 6.1, Absolute Lymphs (auto) 1.67, Nucleated RBC % 0, Sodium 146 H, Potassium 3.7, Chloride 117 H, Carbon Dioxide 25.0, Anion Gap 4 L, BUN 27 H, Creatinine 1.03, Estim Creat Clear Calc 77.65, Est GFR (MDRD) Af Amer 93, Est GFR (MDRD) Non-Af 77, BUN/Creatinine Ratio 26.2 H, Glucose 132 H, Calcium 8.2 L, Random Vancomycin 17.3 H 07/11/24 06:33: POC Glucose 110 H 07/11/24 14:26: POC Glucose 183 H Micro: Microbiology 07/09/24 09:57 Blood Culture (Wb) - Anticubital Right Blood Culture - Preliminary No growth in 48 hours. Physical Exam Narrative General: Alert, oriented, no apparent distress HEENT: Atraumatic, normocephalic Eyes: Anicteric, normal conjunctiva, extraocular movements grossly intact Neck: Supple Respiratory: Clear to auscultation bilaterally, normal respiratory effort Cardiovascular: Regular rate GI: Soft, nontender, nondistended Extremities: No edema Musculoskeletal: Moving all extremities Neuro: No overt focal neurological deficits Skin: Left index finger with erythema and swelling, swelling and erythema persistent, is presently elevating arm and has been compliant with this Psych: Cooperative Assessment & Plan Assessment/Plan (1) Cellulitis: QUALIFIERS: Site of cellulitis: extremity Site of cellulitis of extremity: finger Laterality: left Qualified Code(s): L03.012 - Cellulitis of left finger PLAN: Plan # Left finger swelling and cellulitis -With accompanied white blood cell count but is increased to 18 as well as ESR of 60 and CRP of 123 -Finger x-ray with only soft tissue swelling however does have fairly high inflammatory markers -On cefazolin and also vancomycin given his history of MRSA -Will obtain a blood culture given elevated white blood cell count inflammatory markers -Continue current antibiotics, especially given patient's history of polymicrobial infections and amputations will consult infectious disease for further antibiotic recommendations -Can consider plastics consult if any concern develops for abscess or need for surgical intervention for finger -On IV fluids -Pain control -Continue supportive care -07/10: Patient with increased swelling and erythema with reduced mobility despite IV antibiotics even with downtrending inflammatory markers, ID consulted, plastic surgery consulted for further evaluation given worsening now limiting mobility -07/11: MRI demonstrated possible tenosynovitis, patient examined today by plastic surgery and while hand still swollen exam did not indicate acute surgical intervention necessary and reasonable to monitor on IV antibiotics today but make patient n.p.o. at midnight in the event exam or clinical status would change necessitating any intervention. ID following as well. Continuing Vanco and cefazolin, blood cultures no growth to date # Abnormal swallowing sensation -Patient has a sticking sensation in his chest when he is eating more so solids than liquids -Adding Protonix -Consulted speech therapy ?barium swallow/swallow eval -Depending on findings, symptoms, recommendations may end up needing GI consult -07/11: Evaluated by speech therapy, patient having sticking feeling in center of his chest when eating solids that is causing him pain and decreasing his p.o. intake significantly, it was recommended that GI be consulted for evaluation. GI consult entered # Vertiginous symptoms -Large part of what brought patient to the hospital -Meclizine as needed -Monitor for recurrence, can consider MRI if symptoms are atypical or recurrent but do not feel it is necessary at this time -07/10: Has not had any further incidents, no MRI at this time or further workup. 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 History of PE -Patient reports history of bilateral PEs many years ago, unclear if provoked or unprovoked, has been off anticoagulation also for many years but unclear how long he was supposed to be on it -Follow-up with PCP on discharge, continue DVT prophylaxis # WILLARD?resolved -Baseline creatinine seems around 0.8-1 -Creatinine 1.23 on arrival and is up trended to 1.43 -Continue IV fluids but given improvement in potassium we will hold off on additional potassium and fluids and switch to normal saline -07/10: Creatinine 1.12, improved #DVT ppx: Lovenox subcu Randi Barksdale MD Time spent in the patient's overall evaluation,decision-making process, review of diagnostic data, adjustment of management, discussion with other providers, nursing nursing and ancillary staff involved in patient's care documentation, 36 minutes Charges/Coding Visit Charges Inpatient E&M: 09059 Subs Hosp L2
--- NOTE | 2024-07-11 17:19 | ECHOCS_ITS ---
Reason For Study: A. fib/flutter Procedure This was a 2D Doppler, Color Flow transthoracic echocardiogram. The study was technically difficult. Patient scanned supine. Exam performed portable in patient room. Left Ventricle Normal LV size. The estimated ejection fraction is 60 %. No evidence for diastolic dysfunction. No regional wall motion abnormalities noted. Right Ventricle Normal RV size. Normal systolic function. Atria The left and right atria are normal. No doppler evidence for ASD. Mitral Valve There is no mitral valve stenosis. No mitral valve insufficiency. Tricuspid Valve There is no tricuspid stenosis. No tricuspid valve insufficiency. Aortic Valve Trisinus/trileaflet aortic valve. There is no aortic stenosis. No aortic valve insufficiency. Pulmonic Valve There is no pulmonic valvular stenosis. No pulmonic valve insufficiency. Great Vessels Normal aortic root. Pericardium/Pleural No pericardial effusion. Medication Diluted definity 2ml given slow IV push to enhance endocardial definition. MMode/2D Measurements & Calculations LVIDd: 5.2 cm IVSd: 1.2 cm Ao root diam: 3.4 cm LVIDs: 3.2 cm LVPWd: 1.0 cm RVDd: 3.3 cm FS: 38.5 % LAV(MOD-bp): 30.9 ml LVAd ap4: 24.0 cm2 SV(MOD-sp4): 47.2 ml LAV(MOD-bp) Indexed: 15.3 ml/m2 LVLd ap4: 7.1 cm LAV(MOD-sp2): 33.2 ml EDV(MOD-sp4): 67.7 ml LAV(MOD-sp4): 26.3 ml EDV(sp4-el): 69.2 ml LVAs ap4: 12.1 cm2 LVLs ap4: 6.0 cm ESV(MOD-sp4): 20.5 ml ESV(sp4-el): 20.7 ml EF(MOD-sp4): 69.7 % EF(sp4-el): 70.1 % SV(sp4-el): 48.5 ml LA A4 area: 12.1 cm2 LA dimension(2D): 3.8 cm RA A4 area: 9.5 cm2 TAPSE: 2.3 cm Time Measurements MV dec time: 0.24 sec Doppler Measurements & Calculations MV E max nils: 63.0 cm/sec Lat Peak E' Nils: 7.8 cm/sec Med Peak E' Nils: 8.2 cm/sec MV A max nils: 60.1 cm/sec E/E' lat: 8.1 E/E' med: 7.6 MV E/A: 1.0 MV dec slope: 261.1 cm/sec2 Ao V2 max: 88.0 cm/sec LV V1 max: 75.9 cm/sec Ao max P.1 mmHg LV V1 max P.3 mmHg PA V2 max: 84.1 cm/sec ECHO/Echo Complete W/ Contrast Interpretation Summary The estimated ejection fraction is 60 %. No evidence for diastolic dysfunction. Ordering Physician: Randi Barksdale Referring Physician: Kaylen Horton Performed By: Tsering Guzman RDCS
--- NOTE | 2024-07-11 17:21 | PCM.HOSP.N ---
Hospitalist Note Patient reported to have A-fib RVR overnight with rate in 150s to 160s confirmed on EKG. converted back to normal sinus rhythm with digoxin. Will start patient on metoprolol 12.5 mg twice daily. If patient does not necessitate surgical intervention for hand will need to discuss full dose anticoagulation with patient d/t elevated [id number] of 3. Continue to monitor on telemetry, if patient has no further episodes it is possible this was precipitated by acute illness. TSH within normal limits. No recent echocardiograms will obtain echo
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
[2024-07-11] MEDS: Metoprolol Tartrate 25 MG Tablet 12.5 MG PO (21:39)
[2024-07-11 22:24] LABS: Bedside Glucose 294 mg/dL (74-106)
[2024-07-12] VITALS (12 sets, daily range): BP systolic 117–173; BP diastolic 52–92; PULSE 62–73; RESP 16–18; TEMP 36.1–37.1; O2SAT 92–98; BMI 28.0; BMI 29.8
[2024-07-12] MEDS: Cefazolin 1 GM/50 ML BAG IV ×2 (05:19→13:43)
[2024-07-12 06:51] LABS: Bedside Glucose 119 mg/dL (74-106)
--- NOTE | 2024-07-12 07:13 | PCM.PN.SRG ---
Subjective Subjective Doing about the same this morning. Reports that his pain is mostly located on the dorsum of the left index finger, not on the volar surface. Objective Data Objective Data I reviewed the MRI from 2 days prior (Jul 10). There was localized fluid in flexor sheath over P1 on the left index finger (LIF), but not along the whole flexor sheath or into the palm. Could represent early flexor tenosynovitis. Vital Signs: Vital Signs Temp Pulse Resp BP Pulse Ox O2 Del Method 97.0 F L 69 18 160/71 H 98 Room Air 07/12/24 03:31 07/12/24 03:31 07/12/24 03:31 07/12/24 03:31 07/12/24 03:31 07/12/24 03:31 Oxygen Delivery Method Room Air Weight: 201 lb 15.095 oz Body Mass Index (BMI) 29.8 Intake & Output: Intake and Output for Last 24 Hours 07/10/24 07/11/24 07/12/24 23:59 23:59 23:59 Intake Total 1335 / 1335 680 / 680 50 / 50 Output Total 2300 / 2300 2150 / 2150 Balance -965 / -965 -1470 / -1470 50 / 50 Lab / Micro Data 07/11/24 05:55 07/11/24 05:55 Labs: Laboratory Results - last 24 hr 07/11/24 14:26: POC Glucose 183 H 07/11/24 21:33: POC Glucose 294 H 07/12/24 06:30: POC Glucose 119 H Micro: Microbiology 07/09/24 09:57 Blood Culture (Wb) - Anticubital Right Blood Culture - Preliminary No growth in 48 hours. Physical Exam Narrative Left upper extremity LIF = left index finger Persistent swelling and redness on the left index finger, worse on the dorsum. Redness on the volar/ulnar aspect near P1, but is quite localized. The area of most tenderness when palpating is the dorsal/ulnar aspect of the finger. The digit is not in a resting flexed position at baseline. No pain over the A1 magnolia of the LIF with palpation. No pain in the palm or along the LIF deep flexor surface with flexor tendon excursion (extension/flexion) (passive or active). The distal portions of the digit are not swollen, rather the swelling is more localized to the dorsal/ulnar aspect of the finger where the patient is most tender. No pain radiating into the palm. No pain with axial loading of any of the joints of the left index finger. No pain over the carpal tunnel. No fluctuance on the finger/hand at this time. Motor: he is able to bend and extend all joints of the left upper extremity, but unable to make a full fist secondary to swelling and pain. Vascular: Less than 2-second capillary refill in all digits. Const alert and oriented x3 Eyes EOMs intact bilaterally Lymph Lymphatic: no lymphadenopathy noted Lymphatic Narrative: No lymphadenopathy in the left upper extremity at the elbow or epitrochlear region, no streaking erythema. Resp normal respiratory effort Cardio Rate: regular rate Assessment & Plan Assessment/Plan (1) Cellulitis of left hand: (2) Cellulitis: QUALIFIERS: Site of cellulitis: extremity Site of cellulitis of extremity: finger Laterality: left Qualified Code(s): L03.012 - Cellulitis of left finger PLAN: Continue in arm elevator Agree with continued broad-spectrum antibiotics. No abscess at this point on my exam. Swelling and localized pain is mostly on the dorsum/ulnar side over P1. If there was early signs of flexor tenosynovitis on the MRI, he hasn't developed symptoms of clinically apparent/worsening flexor tenosynovitis at this time based on my examination. The treatment for early flexor tenosynovitis can also be IV antibiotics. I think his problem is mostly a cellulitis (may develop into subcutaneous abscess as his body continues to manage infection). I will further discuss with Dr. Craig today (infectious disease physician). OK for diet this morning (no plans for surgery today), but NPO at midnight tonight. Plastics will continue to follow for serial exams and to check for abscess formation. Charges/Coding Visit Charges Inpatient E&M: 74886 Init Hosp L3
[2024-07-12 07:22] LABS: Absolute Neutrophil Count 5.8 X10^3/uL (2.0-7.7); Basophil# 0.05 X10^3/uL; Basophil% 0.6 % (0-1); Eosinophil# 0.47 X10^3/uL; Eosinophils% 5.5 % (0-5); Hematocrit 35.6 % (40-54); Hemoglobin 11.3 g/dL (13.0-16.5); Lymphocyte % 17.4 % (19-41); Mean Corp Hgb Conc 31.7 g/dL (32-36); Mean Corpuscular Volume 88.3 fL (80-94); Mean Platelet Vol. 9.9 fl (6.2-12.0); Monocyte# 0.76 X10^3/uL; Monocyte% 8.8 % (0-10); NRBC Flagged by Analyzer 0 % (0-5); Neutrophil # 5.82 X10^3/uL (2.7-7.7); Neutrophil % 67.5 % (47-70); Platelet Count 345 K/mm3 (150-450); RBC Distribution Width CV 13.3 % (11.6-14.6); RBC Distribution Width SD 43.5 fl (35.1-43.9); Red Blood Count 4.03 M/mm3 (4.6-6.2); White Blood Count 8.6 K/mm3 (4.4-11.0)
[2024-07-12 07:50] LABS: Anion Gap 5 (5-15); BUN 20 mg/dL (7-18); BUN/Creat Ratio 20.2 RATIO (10-20); Calcium,Total 8.5 mg/dL (8.5-10.1); Chloride 114 mmol/L (98-107); Creatinine, Serum 0.99 mg/dL (0.70-1.30); EST Glomerular Filtration Rate 81 mL/min (>60); Est Glom Filt Rate - Afr Amer 97 mL/min (>60); Estimated Creatinine Clearance 83.19 ml/min; Glucose 129 mg/dL (74-106); Potassium 3.6 mmol/L (3.5-5.1); Sodium Level 145 mmol/L (136-145)
[2024-07-12] MEDS: Menthol/Lanolin/Calamine/Znox 113 GM Tube 1 APPLIC TOPICAL ×2 (10:35→21:06)
[2024-07-12] MEDS: Vancomycin HCl 750 MG in 0.9% Normal Saline (250mL Bag) 250 ML 250 MG IV ×2 (10:35→22:18)
[2024-07-12] MEDS: Nystatin Powder 15gm Bottle 1 APPLIC TOPICAL ×2 (10:36→21:06)
--- NOTE | 2024-07-12 13:28 | PN.HOSP_ITS ---
Reason for Visit Reason for Visit: Diagnoses Type 2 diabetes mellitus with diabetic polyneuropathy (07/08/24) Type 2 diabetes mellitus with hyperglycemia (07/08/24) Dehydration (07/08/24) Hypokalemia (07/08/24) Peripheral vascular disease, unspecified (07/08/24) Cellulitis of left finger (07/08/24) Cellulitis of left upper limb (07/08/24) Cellulitis, unspecified (07/08/24) Dysphagia, unspecified (07/08/24) Dizziness and giddiness (07/08/24) Acquired absence of left leg below knee (07/08/24) Objective Data Objective Data Vital Signs: Vital Signs Temp Pulse Resp BP Pulse Ox O2 Del Method 97.4 F L 73 16 173/71 H 98 Room Air 07/12/24 08:23 07/12/24 08:23 07/12/24 08:23 07/12/24 08:23 07/12/24 08:23 07/12/24 08:23 Oxygen Delivery Method Room Air Weight: 201 lb 15.095 oz Body Mass Index (BMI) 29.8 Intake & Output: Intake and Output for Last 24 Hours 07/10/24 07/11/24 07/12/24 23:59 23:59 23:59 Intake Total 1335 / 1335 680 / 680 315 / 315 Output Total 2300 / 2300 2150 / 2150 Balance -965 / -965 -1470 / -1470 315 / 315 Lab / Micro Data 07/12/24 06:46 07/12/24 06:46 Labs: Laboratory Results - last 24 hr 07/11/24 14:26: POC Glucose 183 H 07/11/24 21:33: POC Glucose 294 H 07/12/24 06:30: POC Glucose 119 H 07/12/24 06:46: WBC 8.6, RBC 4.03 L, Hgb 11.3 L, Hct 35.6 L, MCV 88.3, MCH 28.0, MCHC 31.7 L, RDW Std Deviation 43.5, RDW Coeff of Cheri 13.3, Plt Count 345, MPV 9.9, Immature Gran % (Auto) 0.200, Neut % (Auto) 67.5, Lymph % (Auto) 17.4 L, [place] % (Auto) 8.8, Eos % (Auto) 5.5 H, Baso % (Auto) 0.6, Absolute Neuts (auto) 5.8, Absolute Lymphs (auto) 1.50, Nucleated RBC % 0, Sodium 145, Potassium 3.6, Chloride 114 H, Carbon Dioxide 26.0, Anion Gap 5, BUN 20 H, Creatinine 0.99, Estim Creat Clear Calc 83.19, Est GFR (MDRD) Af Amer 97, Est GFR (MDRD) Non-Af 81, BUN/Creatinine Ratio 20.2 H, Glucose 129 H, Calcium 8.5 Micro: Microbiology 07/09/24 09:57 Blood Culture (Wb) - Anticubital Right Blood Culture - Preliminary No growth in 48 hours. Radiography Diagnostic Testing: Radiology Impression Echocardiogram 07/11/24 17:19 Interpretation Summary The estimated ejection fraction is 60 %. No evidence for diastolic dysfunction. Ordering Physician: Randi Barksdale Referring Physician: Kaylen Horton Performed By: Tsering Guzman RDCS Physical Exam Narrative Seen and examined Physical exam Patient complain of pain over left index finger. Patient also complaining of swallowing difficulty, was seen by speech therapist and plan for EGD General: Alert, Oriented x3, Cooperative. Overweight BMI 29.8 kg/m? HEENT: Atraumatic, PERRLA, EOMI, Normocephalic Oral: No Gingival or Mucosal Lesions/ Ulcerations Neck: Supple, No JVD, Negative Carotid Bruits Chest wall/Lungs: Air entry diminished in bilateral lung bases. No crepitation/rhonchi Cardiovascular: Regular rate, Regular Rhythm, Normal S1, Normal S2, No M/G/R Abdomen: Bowel Sounds Present, Soft, Non Tender, Non-Distended : No dysuria. No renal angle tenderness. No suprapubic tenderness. Extremities: No edema, Capillary Refill Less than 3 Seconds Skin: Left index finger tender, red and edematous mainly over medial side. Small fluid collection on exam Musculoskeletal: No Tenderness to Palpation of Joints or Extremities Neurological: Cranial nerves II-XII grossly intact, DTR 2+/4. No acute focal neurological deficit. Psych/Mental Status: Normal Affect, Appropriate. 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 Tenderness present on the medial and dorsal aspect of the left index finger platelet count 345,000. Discussed with the plastic surgeon Dr. Charles Sam. Plan for possible bedside drainage. Prelim blood culture negative for 48 hours. Pain control. ID is consulted # Abnormal swallowing sensation -Patient has a sticking sensation in his chest when he is eating more so solids than liquids. On PPI. Patient was guided by speech therapist and recommended GI consult. Seen by Dr. Lowery. Plan for EGD today # Vertiginous symptoms -Large part of what brought patient to the hospital -07/12: Resolved #Type 2 diabetes mellitus -Continue 12 units twice daily of glargine 07/12: Glucoses fairly well-controlled. Morning glucose was 119. 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 #DVT ppx: Lovenox subcu Charges/Coding Visit Charges Inpatient E&M: 71172 Subs Hosp L2
--- NOTE | 2024-07-12 13:57 | CASEMGMT ---
Addendum entered by Hien Nelson 07/15/24 09:44: Msg sent to [facility] to check on status of referral. Hien Nelson DC Planning Asst. Original Note: Discharge Planning Referral sent via [facility] to [facility]. Hien Nelson DC Planning Asst.
--- NOTE | 2024-07-12 14:54 | PCM.PN.ID ---
Physical Exam Narrative Not any better, no fever, no n/v/d. Finger still warm, red, sore, swollen Const alert and no apparent distress General Appearance: cooperative Resp normal air movement and clear to auscultation bilaterally Cardio regular rate and regular rhythm GI soft to palpation, non-tender and non-distended Skin Skin Narrative: L hand swelling, redness, tenderness ID ID: Route of nutrition/ use of supplements: [] Nutritional Intake: [] IV Site: [] Wilkinson Catheter: [] Assessment & Plan Assessment/Plan (1) Diabetic neuropathy associated with type 2 diabetes mellitus: QUALIFIERS: Diabetes mellitus complication detail: diabetic polyneuropathy Qualified Code(s): E11.42 - Type 2 diabetes mellitus with diabetic polyneuropathy (2) Cellulitis of left hand: PLAN: Tenosynovitis seen on MRI. Bcx ngtd. Dr. Sam following. Hand still inflammed today. On vanc/cefazolin. Will broaden to vanc/ceftriaxone. D/w Dr. Sam. Will follow
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
--- NOTE | 2024-07-12 15:45 | PCM.POST.ANE ---
Anesthesia: Postop Eval I Current Vital Signs Temperature: 97.4 F Pulse Rate: 73 Blood Pressure: 175/71 Respiratory Rate: 16 Pulse Ox: 98 Assessment Airway patent: Yes Spontaneous unlabored respirations: Yes Mental status: Awake nausea: No Vomiting: No Anesthesia Complication: No Fluid Hydration Crystalloid volume administer (ml): 1,000 Total IV fluid infused: 1,000 Progress Note Anesthesia document: Postop Eval 1 completed: Yes
--- NOTE | 2024-07-12 15:45 | EGD_PTH ---
PATIENT: LIZETH BURGOS LOC: [facility] U#:[id number] AGE/SX: 64/M ROOM: [facility] RE07/08/[address]: Dr. Jeyson Mendoza MD : 1960 BED: 1 DIS: 07/16/2024 SPEC #: [id number] RECD: 07/15/24 07:13 STATUS: WALTER RESagar #: [id number] KODI: 07/12/24 15:[address]: Brian Lowery DEPT: SURGICAL PATHOLOGY RECD BY: Zayda López ENTERED: 07/15/24 09:47 SP TYPE: EGD BIOPSY OTHR DR: DO Dr. Kaylen Helm MD Dr. Prakash Chand, MD Dr. Paige Pierce, MD Dr. Robert Leininger, MD Dr. Robert Siska, MD Tissues: Esophagus, NOS Procedures: Special Stain Group I Surgery Specimen Level IV GMS Stain (control) Alcian Blue/PAS (control) HEADER OPERATION: EGD with biopsy and dilation PRE-OP DIAGNOSIS: Dysphagia TISSUE SUBMITTED: Random esophagus biopsy MICROSCOPIC DIAGNOSIS Esophagus, random biopsy: Fragments of gastroesophageal mucosa with acute and chronic inflammation. A detached fragment of fibrinopurulent exudate. Intestinal metaplasia (goblet cell metaplasia) not identified. See comment. 07/16/2024 COMMENT Alcian blue/PAS stain with matched control is used in the evaluation of the specimen. Special stain for fungi is negative for organisms; matched control is appropriate. MICROSCOPIC DESCRIPTION Slides are reviewed. GROSS DESCRIPTION Received in fixative is one container labeled with the patient's name and designated Random esophagus biopsy. The specimen consists of multiple irregular fragments of light dodd soft tissue that in aggregate 3measure 0.6 x 0.5 x 0.1 cm. The specimen is totally submitted in one cassette. MIGUEL ANGELEve 07/15/2024 TC:2 CPT:70509,[id number],09297
--- NOTE | 2024-07-12 15:47 | OP.PCM_ITS ---
Operative Report Procedure Date: 12 Jul 2024 PATIENT: Carrington Toth SURGEON: Charles Sam MD Ambulance Driver: Nathalie Jones NP PRE-OPERATIVE DIAGNOSIS: Left index finger dorsal abscess on ulnar side of P1 POST-OPERATIVE DIAGNOSIS: Same PROCEDURE PERFORMED: 1) Bedside left index finger incision and drainage of dorsal/ulnar abscess (ulnar side of P1) (CPT 38326) OPERATIVE FINDINGS: Small pocket of purulence entered and cultured INDICATIONS: Carrington Toth is a 64 YO male whom [facility] was consulted for regarding cellulitis. He has formed a small abscess on the dorsal ulnar surface of the left index finger P1. Consented for incision and drainage of the abscess. He understands the risks and benefits. OPERATIVE DETAILS: Patient was prepped and draped in sterile fashion on the index finger. He was anesthetized with 5 cc of lidocaine with epinephrine . A 15 blade scalpel was used to make a linear incision over the fluctuance. It was cultured. And the pocket was washed out with copious amounts of normal saline and packed with iodoform followed by Kerlix and an Vinay wrap. Patient tolerated the procedure well. Specimens: Cultures POST-OPERATIVE PLAN: Start 3 times daily Dial soap soaks tomorrow morning on rounds. Follow-up wound cultures.
--- NOTE | 2024-07-12 16:10 | PCM.POST.ANE ---
Anesthesia: Postop Eval I Current Vital Signs Temperature: 98.2 F Pulse Rate: 71 Blood Pressure: 134/65 Respiratory Rate: 16 Pulse Ox: 97 Oxygen Delivery Method: Room Air Assessment Airway patent: Yes Spontaneous unlabored respirations: Yes Mental status: Awake and Calm nausea: No Vomiting: No Anesthesia Complication: No Fluid Hydration Crystalloid volume administer (ml): 400 Total IV fluid infused: 400 Progress Note Anesthesia document: Postop Eval 1 completed: Yes
--- NOTE | 2024-07-12 16:12 | OP.EGD_ITS ---
Patient Name: Carrington Toth Procedure Date: 07/12/2024 3:48 PM Date of : 1960 Age: 64 Procedure: Upper GI endoscopy Indications: Dysphagia Providers: Brian Lowery DO Medicines: Monitored Anesthesia Care Patient Profile: This is a 64 year old male. Refer to note in patient chart for documentation of history and physical. Patient has symptoms of dysphagia with both liquids and solids. Complications: No immediate complications. Procedure: Pre-Anesthesia Assessment: - Prior to the procedure, a History and Physical was performed, and patient medications and allergies were reviewed. The patient is competent. The risks and benefits of the procedure and the sedation options and risks were discussed with the patient. All questions were answered and informed consent was obtained. Patient identification and proposed procedure were verified by the physician in the pre-procedure area. Mental Status Examination: alert and oriented. Airway Examination: normal oropharyngeal airway and neck mobility. Respiratory Examination: clear to auscultation. CV Examination: normal. Prophylactic Antibiotics: The patient does not require prophylactic antibiotics. Prior Anticoagulants: The patient has taken no anticoagulant or antiplatelet agents except for NSAID medication. ASA Grade Assessment: III - A patient with severe systemic disease. After reviewing the risks and benefits, the patient was deemed in satisfactory condition to undergo the procedure. The anesthesia plan was to use monitored anesthesia care (MAC). Immediately prior to administration of medications, the patient was re-assessed for adequacy to receive sedatives. The heart rate, respiratory rate, oxygen saturations, blood pressure, adequacy of pulmonary ventilation, and response to care were monitored throughout the procedure. The physical status of the patient was re-assessed after the procedure. After obtaining informed consent, the endoscope was passed under direct vision. Throughout the procedure, the patient's blood pressure, pulse, and oxygen saturations were monitored continuously. The Endoscope was introduced through the mouth, and advanced to the second part of duodenum. The upper GI endoscopy was accomplished without difficulty. The patient tolerated the procedure well. Scope In: 3:56:51 PM Scope Out: 4:01:02 PM Total Procedure Duration Time 0 hours 4 minutes 11 seconds Findings: LA Grade D (one or more mucosal breaks involving at least 75% of esophageal circumference) esophagitis with no bleeding was found 34 to 42 cm from the incisors. Biopsies were taken with a cold forceps for histology. Verification of patient identification for the specimen was done. Estimated blood loss was minimal. Patchy, white plaques were found in the upper third of the esophagus and in the middle third of the esophagus. Biopsies were taken with a cold forceps for histology. Verification of patient identification for the specimen was done. Estimated blood loss was minimal. One benign-appearing, intrinsic severe stenosis was found 38 to 40 cm from the incisors. This stenosis measured 3 cm (in length). The stenosis was traversed. A guidewire was placed and the scope was withdrawn. Dilation was performed with a Savary dilator with no resistance at 51 Fr. The dilation site was examined and showed moderate mucosal disruption. Estimated blood loss was minimal. The entire examined stomach was normal. Localized mild inflammation was found in the duodenal bulb. Impression: - LA Grade D erosive esophagitis with no bleeding. Biopsied. - Esophageal plaques were found, consistent with candidiasis. Biopsied. - Benign-appearing esophageal stenosis. Dilated. - Normal stomach. - Duodenitis. Recommendation: - Return patient to [facility] for ongoing care. - Advance diet as tolerated today. - Use Protonix (pantoprazole) 40 mg PO BID for 4 months. - Continue present medications. Procedure Code(s): --- Professional --- 45642, Esophagogastroduodenoscopy, flexible, transoral; with insertion of guide wire followed by passage of dilator(s) through esophagus over guide wire 32432, 59,51, Esophagogastroduodenoscopy, flexible, transoral; with biopsy, single or multiple CPT copyright 2021 [employer]. All rights reserved. The codes documented in this report are preliminary and upon shroud line tier review may be revised to meet current compliance requirements. Brian Lowery DO 07/12/2024 4:11:57 PM This report has been signed electronically. Number of Addenda: 0 Note Initiated On: 07/12/2024 3:48 PM
--- NOTE | 2024-07-12 16:12 | OP.CCLET_ITS ---
07/12/2024 Kaylen Horton MD [address] [place] [address] [place] [address] Re : Upper GI endoscopy procedure for Carrington Toth Dear Dr. Horton This procedure was performed on Friday, July 12, 2024. My impressions and recommendations are as follows: Impressions : - LA Grade D erosive esophagitis with no bleeding. Biopsied. - Esophageal plaques were found, consistent with candidiasis. Biopsied. - Benign-appearing esophageal stenosis. Dilated. - Normal stomach. - Duodenitis. Recommendations : - Return patient to [facility] for ongoing care. - Advance diet as tolerated today. - Use Protonix (pantoprazole) 40 mg PO BID for 4 months. - Continue present medications. My findings are described in the full procedure note, which is enclosed. If I can be of further assistance, please feel free to contact me at . Sincerely, Brian Friend, 07/12/2024 4:11:57 PM This report has been signed electronically.
[2024-07-12] MEDS: Ceftriaxone 2 GM in 0.9% Normal Saline (50mL MB+) 50 ML IV (17:17)
[2024-07-12] MEDS: Lactobacillis Acidophilus 1 CAP PO ×2 (17:18→21:07)
[2024-07-12] MEDS: Lidocaine 1% /Epi 1:100 (20ml) 20 ML Vial INFILT (17:18)
[2024-07-12] MEDS: Ascorbic Acid 500 MG Tablet 1000 MG PO (17:19)
[2024-07-12] MEDS: Nystatin 500,000 UNIT/5 ML PO.SYRINGE (WCH) 500000 UNIT PO ×2 (17:19→21:09)
--- NOTE | 2024-07-12 17:40 | PCM.POSTANE2 ---
Anesthesia Postop Eval I Sum Postop Eval Completion status Anesthesia document: Postop Eval 1 completed: Yes Anesthesia Postop Eval I Summary Anesthesia Postop Eval I Summary: Anesthesia Postop Eval I: Assessment Summary Airway patent Yes 07/12/24 16:10 [email or web address] Spontaneous unlabored Yes 07/12/24 16:10 [email or web address] respirations Mental status Awake,Calm 07/12/24 16:10 [email or web address] nausea No 07/12/24 16:10 [email or web address] Vomiting No 07/12/24 16:10 [email or web address] Anesthesia Postop Eval I: Fluid Summary Crystalloid volume administer 400 07/12/24 16:10 [email or web address] (ml) Colloids volume administered ( ml) Blood Product volume administered (ml) Total IV fluid infused 400 07/12/24 16:10 [email or web address] Anesthesia Postop Eval I: Summary Notes Anesthesia Complication No 07/12/24 16:10 [email or web address] Anesthesia Complication Comment: Post-operative progress note Anesthesia: Postop Eval II Evaluation Mental status: Awake Pain Level: 0 nausea: No Vomiting: No
[2024-07-12 17:51] LABS: Bedside Glucose 96 mg/dL (74-106)
[2024-07-12] MEDS: Metoprolol Tartrate 25 MG Tablet 12.5 MG PO (21:07)
[2024-07-12] MEDS: Insulin Glargine-YFGN 100 UNIT/ML Pen 12 UNIT SC (21:12)
[2024-07-12] MEDS: Insulin Lispro 100 UNIT/ML INSULN.PEN SC (21:13)
[2024-07-12 22:03] LABS: Vancomycin, Trough Level 20.1 ug/mL (5.0-15.0)
--- NOTE | 2024-07-12 22:13 | PHA.PHARE_ITS ---
Consult Antibiotic Management Pharmacy has been consulted to manage selected antibiotic: Vancomycin Type of Intervention Type of Consult: Follow-up Suspected Infection Suspected Infection: Skin/Soft tissue Labs Labs: Sodium 145 mmol/L (136-145) 07/12/24 06:46 Potassium 3.6 mmol/L (3.5-5.1) 07/12/24 06:46 Chloride 114 mmol/L (98-107) H 07/12/24 06:46 Carbon Dioxide 26.0 mmol/L (21.0-32.0) 07/12/24 06:46 Anion Gap 5 (5-15) 07/12/24 06:46 BUN 20 mg/dL (7-18) H 07/12/24 06:46 Creatinine 0.99 mg/dL (0.70-1.30) 07/12/24 06:46 Est GFR (MDRD) Af Amer 97 mL/min (>60) 07/12/24 06:46 Est GFR (MDRD) Non-Af 81 mL/min (>60) 07/12/24 06:46 BUN/Creatinine Ratio 20.2 RATIO (10-20) H 07/12/24 06:46 Glucose 129 mg/dL (74-106) H 07/12/24 06:46 Vancomycin Trough 20.1 ug/mL (5.0-15.0) H 07/12/24 21:30 Random Vancomycin 17.3 ug/mL (0.0-15.0) H 07/11/24 05:55 Microbiology Microbiology: Microbiology 07/09/24 09:57 Blood Culture (Wb) - Anticubital Right Blood Culture - Preliminary No growth in 48 hours. Dosing Weight Weight used for dosin.6 kg Estimated Creatinine Clearance Estimated Creatinine Clearance: 83 Goal Trough Goal Trough: 15-20 mcg/mL Pharmacy Plan for Drug Dosing Pharmacy Plan for Drug Dosing: Vancomycin trough level of 20.1 was just at the top of the target range of 15- 20. With improving SCr will continue dosing at 750mg q12h, and will re-draw a trough level in two days. Pharmacy Service will continue to monitor and adjust dosing as required. Follow-Up Labs Follow-Up Labs: Trough: Vancomycin Date/Time Labs Ordered Labs to be done on [date and time ordered]: 07/14/24 @0708
[2024-07-12 22:38] LABS: Bedside Glucose 192 mg/dL (74-106)
[2024-07-13 04:16] VITALS: BP 160/71; PULSE 71; RESP 18; TEMP 36.2; O2SAT 97
[2024-07-13 05:16] VITALS: BMI 29.7
[2024-07-13 06:09] LABS: Absolute Lymphocyte Count 1.61 X10^3/uL (0.83-4.51); Absolute Neutrophil Count 5.4 X10^3/uL (2.0-7.7); Basophil# 0.05 X10^3/uL; Basophil% 0.6 % (0-1); Eosinophil# 0.51 X10^3/uL; Eosinophils% 6.1 % (0-5); Hematocrit 35.7 % (40-54); Hemoglobin 11.3 g/dL (13.0-16.5); Lymphocyte # 1.61 X10^3/ul (0.83-4.51); Lymphocyte % 19.3 % (19-41); Mean Corp Hgb Conc 31.7 g/dL (32-36); Mean Corpuscular Hgb 28.3 pg (27.0-32.0); Mean Corpuscular Volume 89.5 fL (80-94); Monocyte# 0.72 X10^3/uL; Monocyte% 8.6 % (0-10); NRBC Flagged by Analyzer 0 % (0-5); Neutrophil # 5.43 X10^3/uL (2.7-7.7); Neutrophil % 64.9 % (47-70); Platelet Count 334 K/mm3 (150-450); RBC Distribution Width CV 13.2 % (11.6-14.6); RBC Distribution Width SD 43.5 fl (35.1-43.9); Red Blood Count 3.99 M/mm3 (4.6-6.2); White Blood Count 8.4 K/mm3 (4.4-11.0)
[2024-07-13 06:24] LABS: Anion Gap 4 (5-15); BUN 17 mg/dL (7-18); BUN/Creat Ratio 18.7 RATIO (10-20); Calcium,Total 8.4 mg/dL (8.5-10.1); Chloride 112 mmol/L (98-107); Creatinine, Serum 0.91 mg/dL (0.70-1.30); EST Glomerular Filtration Rate 89 mL/min (>60); Est Glom Filt Rate - Afr Amer 108 mL/min (>60); Estimated Creatinine Clearance 90.45 ml/min; Glucose 159 mg/dL (74-106); Potassium 3.6 mmol/L (3.5-5.1); Sodium Level 144 mmol/L (136-145)
--- NOTE | 2024-07-13 06:45 | PCM.PN.SRG ---
Subjective Subjective Reports improved pain with regards to the left index finger. Compliant with rest and elevation of the left upper extremity. Objective Data Objective Data Vital Signs: Vital Signs Temp Pulse Resp BP Pulse Ox O2 Del Method 97.2 F L 71 18 160/71 H 97 Room Air 07/13/24 04:16 07/13/24 04:16 07/13/24 04:16 07/13/24 04:16 07/13/24 04:16 07/13/24 04:16 Oxygen Delivery Method Room Air Weight: 201 lb 11.567 oz Body Mass Index (BMI) 29.7 Intake & Output: Intake and Output for Last 24 Hours 07/11/24 07/12/24 07/13/24 23:59 23:59 23:59 Intake Total 680 / 680 680 / 680 Output Total 2150 / 2150 1100 / 1100 200 / 200 Balance -1470 / -1470 -420 / -420 -200 / -200 Lab / Micro Data 07/13/24 05:00 07/13/24 05:00 Labs: Laboratory Results - last 24 hr 07/12/24 06:30: POC Glucose 119 H 07/12/24 06:46: WBC 8.6, RBC 4.03 L, Hgb 11.3 L, Hct 35.6 L, MCV 88.3, MCH 28.0, MCHC 31.7 L, RDW Std Deviation 43.5, RDW Coeff of Cheri 13.3, Plt Count 345, MPV 9.9, Immature Gran % (Auto) 0.200, Neut % (Auto) 67.5, Lymph % (Auto) 17.4 L, [place] % (Auto) 8.8, Eos % (Auto) 5.5 H, Baso % (Auto) 0.6, Absolute Neuts (auto) 5.8, Absolute Lymphs (auto) 1.50, Nucleated RBC % 0, Sodium 145, Potassium 3.6, Chloride 114 H, Carbon Dioxide 26.0, Anion Gap 5, BUN 20 H, Creatinine 0.99, Estim Creat Clear Calc 83.19, Est GFR (MDRD) Af Amer 97, Est GFR (MDRD) Non-Af 81, BUN/Creatinine Ratio 20.2 H, Glucose 129 H, Calcium 8.5 07/12/24 17:14: POC Glucose 96 07/12/24 21:11: POC Glucose 192 H 07/12/24 21:30: Vancomycin Trough 20.1 H 07/13/24 05:00: WBC 8.4, RBC 3.99 L, Hgb 11.3 L, Hct 35.7 L, MCV 89.5, MCH 28.3, MCHC 31.7 L, RDW Std Deviation 43.5, RDW Coeff of Cheri 13.2, Plt Count 334, MPV 10.0, Immature Gran % (Auto) 0.500, Neut % (Auto) 64.9, Lymph % (Auto) 19.3, [place] % (Auto) 8.6, Eos % (Auto) 6.1 H, Baso % (Auto) 0.6, Absolute Neuts (auto) 5.4, Absolute Lymphs (auto) 1.61, Nucleated RBC % 0, Sodium 144, Potassium 3.6, Chloride 112 H, Carbon Dioxide 28.0, Anion Gap 4 L, BUN 17, Creatinine 0.91, Estim Creat Clear Calc 90.45, Est GFR (MDRD) Af Amer 108, Est GFR (MDRD) Non-Af 89, BUN/Creatinine Ratio 18.7, Glucose 159 H, Calcium 8.4 L Micro: Microbiology 07/09/24 09:57 Blood Culture (Wb) - Anticubital Right Blood Culture - Preliminary No growth in 48 hours. Radiography Diagnostic Testing: Radiology Impression Echocardiogram 07/11/24 17:19 Interpretation Summary The estimated ejection fraction is 60 %. No evidence for diastolic dysfunction. Ordering Physician: Randi Barksdale Referring Physician: Kaylen Horton Performed By: Tsering Guzman RDCS Physical Exam Narrative Left upper extremity LIF = left index finger Persistent swelling and redness on the left index finger, worse on the dorsum. Has improved since bedside I&D of soft tissue abscess yesterday (dorsal ulnar aspect). No active bleeding, incision open (packing removed). The digit is not in a resting flexed position at baseline. No pain over the A1 magnolia of the LIF with palpation. No pain in the palm or along the LIF deep flexor surface with flexor tendon excursion (extension/flexion) (passive or active). The distal portions of the digit are not swollen, rather the swelling is more localized to the dorsal/ulnar aspect of the finger where the patient is most tender. No pain radiating into the palm. No pain with axial loading of any of the joints of the left index finger. No pain over the carpal tunnel. No fluctuance on the finger/hand at this time. Motor: he is able to bend and extend all joints of the left upper extremity, but unable to make a full fist secondary to swelling and pain. Vascular: Less than 2-second capillary refill in all digits. Const alert and oriented x3 Eyes EOMs intact bilaterally Lymph Lymphatic: no lymphadenopathy noted Lymphatic Narrative: No lymphadenopathy in the left upper extremity at the elbow or epitrochlear region, no streaking erythema. Resp normal respiratory effort Cardio Rate: regular rate Assessment & Plan Assessment/Plan (1) Cellulitis: QUALIFIERS: Site of cellulitis: extremity Site of cellulitis of extremity: finger Laterality: left Qualified Code(s): L03.012 - Cellulitis of left finger PLAN: Improvement today on exam Redness is dissipating Start Dial soap soaks 3 times per day (initiated this morning) with dry dressing applied thereafter Continue rest and elevation of the left upper extremity Follow-up wound cultures Lasix will continue to follow Charges/Coding Procedures Integumentary [id number]: [id number] Global Visit
[2024-07-13 07:03] LABS: Bedside Glucose 129 mg/dL (74-106)
[2024-07-13] MEDS: Menthol/Lanolin/Calamine/Znox 113 GM Tube 1 APPLIC TOPICAL ×2 (09:46→21:31)
[2024-07-13] MEDS: Lactobacillis Acidophilus 1 CAP PO ×4 (09:46→21:29)
[2024-07-13 09:47] VITALS: PULSE 63
[2024-07-13] MEDS: Metoprolol Tartrate 25 MG Tablet 12.5 MG PO ×2 (09:47→21:30)
[2024-07-13] MEDS: Nystatin Powder 15gm Bottle 1 APPLIC TOPICAL ×2 (09:48→21:31)
[2024-07-13] MEDS: Ascorbic Acid 500 MG Tablet 1000 MG PO ×2 (09:48→17:08)
[2024-07-13] MEDS: Nystatin 500,000 UNIT/5 ML PO.SYRINGE (WCH) 500000 UNIT PO ×4 (09:49→21:32)
[2024-07-13] MEDS: Cholecalciferol (Vit D3) 125 MCG CAPSULE (5,000 UNITS) PO (09:50)
[2024-07-13] MEDS: Pantoprazole Sodium 40 MG Tablet PO ×2 (09:50→21:32)
[2024-07-13] MEDS: Enoxaparin 40 MG/0.4 ML Syringe SC (09:53)
[2024-07-13] MEDS: Insulin Glargine-YFGN 100 UNIT/ML Pen 12 UNIT SC ×2 (09:53→21:28)
[2024-07-13] MEDS: Zinc Sulfate 50 mg zinc (220 mg) ORAL capsule PO (09:54)
[2024-07-13] MEDS: Glucerna Shake 120 ML LIQUID PO ×3 (09:59→17:09)
[2024-07-13 10:00] VITALS: BP 144/56; PULSE 62; RESP 16; TEMP 36.6; O2SAT 97
[2024-07-13] MEDS: Ceftriaxone 2 GM in 0.9% Normal Saline (50mL MB+) 50 ML IV (10:03)
[2024-07-13] MEDS: Vancomycin HCl 750 MG in 0.9% Normal Saline (250mL Bag) 250 ML 250 MG IV ×2 (10:04→21:24)
[2024-07-13] MEDS: 0.9% Saline Lock 10 ML Syringe IV (10:04)
--- NOTE | 2024-07-13 10:12 | PCM.PN.HOSP ---
Reason for Visit Reason for Visit: Diagnoses Type 2 diabetes mellitus with diabetic polyneuropathy (07/08/24) Type 2 diabetes mellitus with hyperglycemia (07/08/24) Dehydration (07/08/24) Hypokalemia (07/08/24) Peripheral vascular disease, unspecified (07/08/24) Cellulitis of left finger (07/08/24) Cellulitis of left upper limb (07/08/24) Cellulitis, unspecified (07/08/24) Dysphagia, unspecified (07/08/24) Dizziness and giddiness (07/08/24) Acquired absence of left leg below knee (07/08/24) Objective Data Objective Data Vital Signs: Vital Signs Temp Pulse Resp BP Pulse Ox O2 Del Method 97.2 F L 63 18 160/71 H 97 Room Air 07/13/24 04:16 07/13/24 09:47 07/13/24 04:16 07/13/24 04:16 07/13/24 04:16 07/13/24 04:16 Oxygen Delivery Method Room Air Weight: 201 lb 11.567 oz Body Mass Index (BMI) 29.7 Intake & Output: Intake and Output for Last 24 Hours 07/11/24 07/12/24 07/13/24 23:59 23:59 23:59 Intake Total 680 / 680 680 / 680 0 / 0 Output Total 2150 / 2150 1100 / 1100 200 / 200 Balance -1470 / -1470 -420 / -420 -200 / -200 Lab / Micro Data 07/13/24 05:00 07/13/24 05:00 Labs: Laboratory Results - last 24 hr 07/12/24 17:14: POC Glucose 96 07/12/24 21:11: POC Glucose 192 H 07/12/24 21:30: Vancomycin Trough 20.1 H 07/13/24 05:00: WBC 8.4, RBC 3.99 L, Hgb 11.3 L, Hct 35.7 L, MCV 89.5, MCH 28.3, MCHC 31.7 L, RDW Std Deviation 43.5, RDW Coeff of Cheri 13.2, Plt Count 334, MPV 10.0, Immature Gran % (Auto) 0.500, Neut % (Auto) 64.9, Lymph % (Auto) 19.3, [place] % (Auto) 8.6, Eos % (Auto) 6.1 H, Baso % (Auto) 0.6, Absolute Neuts (auto) 5.4, Absolute Lymphs (auto) 1.61, Nucleated RBC % 0, Sodium 144, Potassium 3.6, Chloride 112 H, Carbon Dioxide 28.0, Anion Gap 4 L, BUN 17, Creatinine 0.91, Estim Creat Clear Calc 90.45, Est GFR (MDRD) Af Amer 108, Est GFR (MDRD) Non-Af 89, BUN/Creatinine Ratio 18.7, Glucose 159 H, Calcium 8.4 L 07/13/24 06:33: POC Glucose 129 H Micro: Microbiology 07/09/24 09:57 Blood Culture (Wb) - Anticubital Right Blood Culture - Preliminary No growth in 48 hours. Radiography Diagnostic Testing: Radiology Impression Echocardiogram 07/11/24 17:19 Interpretation Summary The estimated ejection fraction is 60 %. No evidence for diastolic dysfunction. Ordering Physician: Randi Barksdale Referring Physician: Kaylen Horton Performed By: Tsering Guzman ARAVIND Physical Exam Narrative Seen and examined Physical exam Patient had bedside incision and drainage of a small pocket of purulence material on the ulnar side of left index finger. Also had EGD for dysphagia yesterday. Pain of left index finger is better. Patient reports improved dysphagia and better swallowing and eating his breakfast. General: Alert, Oriented x3, Cooperative. Overweight BMI 29.8 kg/m? HEENT: Atraumatic, PERRLA, EOMI, Normocephalic Oral: No Gingival or Mucosal Lesions/ Ulcerations Neck: Supple, No JVD, Negative Carotid Bruits Chest wall/Lungs: Air entry diminished in bilateral lung bases. No crepitation/rhonchi Cardiovascular: Regular rate, Regular Rhythm, Normal S1, Normal S2, No M/G/R Abdomen: Bowel Sounds Present, Soft, Non Tender, Non-Distended : No dysuria. No renal angle tenderness. No suprapubic tenderness. Extremities: No edema, Capillary Refill Less than 3 Seconds Skin: Left index finger tenderness swelling better. Dressing is dry. Musculoskeletal: No Tenderness to Palpation of Joints or Extremities Neurological: Cranial nerves II-XII grossly intact, DTR 2+/4. No acute focal neurological deficit. Psych/Mental Status: Normal Affect, Appropriate. 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 Tenderness present on the medial and dorsal aspect of the left index finger platelet count 345,000. Discussed with the plastic surgeon Dr. Charles Sam. Plan for possible bedside drainage. Prelim blood culture negative for 48 hours. Pain control. ID is consulted 07/13: Patient had bedside incision and drainage of a small pocket of abscess on the medial aspect of left index finger. Soap soak 3 times a day. Continue IV antibiotics. Rest and elevation of left upper extremity. Prelim Gram stain of wound culture shows no growth. # Abnormal swallowing sensation -Patient has a sticking sensation in his chest when he is eating more so solids than liquids. On PPI. Patient was guided by speech therapist and recommended GI consult. Seen by Dr. Lowery. Plan for EGD today 07/13: Patient had EGD on 07/12: Patient on nystatin and PPI Impressions : - LA Grade D erosive esophagitis with no bleeding. Biopsied. - Esophageal plaques were found, consistent with candidiasis. Biopsied. - Benign-appearing esophageal stenosis. Dilated. - Normal stomach. - Duodenitis. Recommendations : - Use Protonix (pantoprazole) 40 mg PO BID for 4 months. # Vertiginous symptoms -Large part of what brought patient to the hospital -07/12: Resolved #Type 2 diabetes mellitus -Continue 12 units twice daily of glargine 07/12: Glucoses fairly well-controlled. Morning glucose was 119. 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 #DVT ppx: Lovenox subcu Microbiology Past 72 Hours 07/12/24 15:29 Wound - Finger Wound Culture - Preliminary No growth-Final to follow 07/09/24 09:57 Blood Culture (Wb) - Anticubital Right Blood Culture - Preliminary No growth in 48 hours. Laboratory Results 07/12/24 17:14: POC Glucose 96 07/12/24 21:11: POC Glucose 192 H 07/12/24 21:30: Vancomycin Trough 20.1 H 07/13/24 05:00: WBC 8.4, RBC 3.99 L, Hgb 11.3 L, Hct 35.7 L, MCV 89.5, MCH 28.3, MCHC 31.7 L, RDW Std Deviation 43.5, RDW Coeff of Cheri 13.2, Plt Count 334, MPV 10.0, Immature Gran % (Auto) 0.500, Neut % (Auto) 64.9, Lymph % (Auto) 19.3, [place] % (Auto) 8.6, Eos % (Auto) 6.1 H, Baso % (Auto) 0.6, Absolute Neuts (auto) 5.4, Absolute Lymphs (auto) 1.61, Nucleated RBC % 0, Sodium 144, Potassium 3.6, Chloride 112 H, Carbon Dioxide 28.0, Anion Gap 4 L, BUN 17, Creatinine 0.91, Estim Creat Clear Calc 90.45, Est GFR (MDRD) Af Amer 108, Est GFR (MDRD) Non-Af 89, BUN/Creatinine Ratio 18.7, Glucose 159 H, Calcium 8.4 L 07/13/24 06:33: POC Glucose 129 H 07/13/24 10:26: POC Glucose 133 H Charges/Coding Visit Charges Inpatient E&M: 57822 Subs Hosp L2
[2024-07-13 10:45] LABS: Bedside Glucose 133 mg/dL (74-106)
--- NOTE | 2024-07-13 15:18 | EX.PCM.PN.GI ---
Subjective Subjective Patient underwent an upper endoscopy. He was discovered to have severe erosive esophagitis with severe esophageal stricture status post dilation. Objective Data Objective Data Vital Signs: Vital Signs Temp Pulse Resp BP Pulse Ox O2 Del Method 97.9 F 62 16 144/56 H 97 Room Air 07/13/24 10:00 07/13/24 10:00 07/13/24 10:00 07/13/24 10:00 07/13/24 10:00 07/13/24 10:00 Oxygen Delivery Method Room Air Weight: 201 lb 11.567 oz Body Mass Index (BMI) 29.7 Intake & Output: Intake and Output for Last 24 Hours 07/11/24 07/12/24 07/13/24 23:59 23:59 23:59 Intake Total 680 / 680 680 / 680 315 / 315 Output Total 2150 / 2150 1100 / 1100 500 / 500 Balance -1470 / -1470 -420 / -420 -185 / -185 Lab / Micro Data 07/13/24 05:00 07/13/24 05:00 Labs: Laboratory Results - last 24 hr 07/12/24 17:14: POC Glucose 96 07/12/24 21:11: POC Glucose 192 H 07/12/24 21:30: Vancomycin Trough 20.1 H 07/13/24 05:00: WBC 8.4, RBC 3.99 L, Hgb 11.3 L, Hct 35.7 L, MCV 89.5, MCH 28.3, MCHC 31.7 L, RDW Std Deviation 43.5, RDW Coeff of Cheri 13.2, Plt Count 334, MPV 10.0, Immature Gran % (Auto) 0.500, Neut % (Auto) 64.9, Lymph % (Auto) 19.3, [place] % (Auto) 8.6, Eos % (Auto) 6.1 H, Baso % (Auto) 0.6, Absolute Neuts (auto) 5.4, Absolute Lymphs (auto) 1.61, Nucleated RBC % 0, Sodium 144, Potassium 3.6, Chloride 112 H, Carbon Dioxide 28.0, Anion Gap 4 L, BUN 17, Creatinine 0.91, Estim Creat Clear Calc 90.45, Est GFR (MDRD) Af Amer 108, Est GFR (MDRD) Non-Af 89, BUN/Creatinine Ratio 18.7, Glucose 159 H, Calcium 8.4 L 07/13/24 06:33: POC Glucose 129 H 07/13/24 10:26: POC Glucose 133 H Micro: Microbiology 07/12/24 15:29 Wound - Finger Gram Stain - Final 07/12/24 15:29 Wound - Finger Wound Culture - Preliminary No growth-Final to follow 07/09/24 09:57 Blood Culture (Wb) - Anticubital Right Blood Culture - Preliminary No growth in 48 hours. Physical Exam Narrative General: Alert, Oriented x3, Cooperative. Overweight BMI 29.8 kg/m? HEENT: Atraumatic, PERRLA, EOMI, Normocephalic Oral: No Gingival or Mucosal Lesions/ Ulcerations Neck: Supple, No JVD, Negative Carotid Bruits Chest wall/Lungs: Air entry diminished in bilateral lung bases. No crepitation/rhonchi Cardiovascular: Regular rate, Regular Rhythm, Normal S1, Normal S2, No M/G/R Abdomen: Bowel Sounds Present, Soft, Non Tender, Non-Distended : No dysuria. No renal angle tenderness. No suprapubic tenderness. Extremities: No edema, Capillary Refill Less than 3 Seconds Skin: Left index finger tenderness swelling better. Dressing is dry. Musculoskeletal: No Tenderness to Palpation of Joints or Extremities Neurological: Cranial nerves II-XII grossly intact, DTR 2+/4. No acute focal neurological deficit. Psych/Mental Status: Normal Affect, Appropriate. Assessment & Plan Assessment/Plan (1) Dysphagia: PLAN: Findings: LA Grade D (one or more mucosal breaks involving at least 75% of esophageal circumference) esophagitis with no bleeding was found 34 to 42 cm from the incisors. Biopsies were taken with a cold forceps for histology. Verification of patient identification for the specimen was done. Estimated blood loss was minimal. Patchy, white plaques were found in the upper third of the esophagus and in the middle third of the esophagus. Biopsies were taken with a cold forceps for histology. Verification of patient identification for the specimen was done. Estimated blood loss was minimal. One benign-appearing, intrinsic severe stenosis was found 38 to 40 cm from the incisors. This stenosis measured 3 cm (in length). The stenosis was traversed. A guidewire was placed and the scope was withdrawn. Dilation was performed with a Savary dilator with no resistance at 51 Fr. The dilation site was examined and showed moderate mucosal disruption. Estimated blood loss was minimal. The entire examined stomach was normal. Localized mild inflammation was found in the duodenal bulb. Impression: - LA Grade D erosive esophagitis with no bleeding. Biopsied. - Esophageal plaques were found, consistent with candidiasis. Biopsied. - Benign-appearing esophageal stenosis. Dilated. - Normal stomach. - Duodenitis. Recommendation: - [facility]. - Advance diet as tolerated today. - Use Protonix (pantoprazole) 40 mg PO BID for 4 months. - Continue present medications. 07/13/2024-patient is doing well. He is tolerating a diet. Continue medical therapy. Charges/Coding Visit Charges Inpatient E&M: 91922 Subs Hosp L3
[2024-07-13 16:00] VITALS: BP 149/69; PULSE 66; RESP 16; TEMP 36.7; O2SAT 95
[2024-07-13] MEDS: Insulin Lispro 100 UNIT/ML INSULN.PEN SC ×2 (17:08→21:27)
[2024-07-13 17:15] LABS: Bedside Glucose 193 mg/dL (74-106)
[2024-07-13 19:57] VITALS: BP 150/70; PULSE 96; RESP 16; TEMP 37.1; O2SAT 98
[2024-07-13 21:30] VITALS: BP 150/70; PULSE 63
[2024-07-13 21:55] LABS: Bedside Glucose 221 mg/dL (74-106)
[2024-07-14 02:00] VITALS: BP 163/71; PULSE 68; RESP 16; TEMP 36.5; O2SAT 97
[2024-07-14 05:51] VITALS: BMI 28.9
[2024-07-14 06:04] LABS: Absolute Neutrophil Count 5.8 X10^3/uL (2.0-7.7); Basophil# 0.06 X10^3/uL; Basophil% 0.7 % (0-1); Eosinophil# 0.57 X10^3/uL; Eosinophils% 6.4 % (0-5); Hematocrit 36.3 % (40-54); Hemoglobin 11.4 g/dL (13.0-16.5); Mean Corp Hgb Conc 31.4 g/dL (32-36); Mean Corpuscular Hgb 28.1 pg (27.0-32.0); Mean Corpuscular Volume 89.4 fL (80-94); Monocyte# 0.88 X10^3/uL; Monocyte% 9.9 % (0-10); NRBC Flagged by Analyzer 0 % (0-5); Neutrophil # 5.75 X10^3/uL (2.7-7.7); Neutrophil % 64.6 % (47-70); Platelet Count 328 K/mm3 (150-450); RBC Distribution Width CV 13.1 % (11.6-14.6); RBC Distribution Width SD 43.4 fl (35.1-43.9); Red Blood Count 4.06 M/mm3 (4.6-6.2); White Blood Count 8.9 K/mm3 (4.4-11.0)
--- NOTE | 2024-07-14 06:17 | PCM.PN.SRG ---
Subjective Subjective Compliant with rest and elevation of the left upper extremity. Objective Data Objective Data Vital Signs: Vital Signs Temp Pulse Resp BP Pulse Ox O2 Del Method 97.7 F L 68 16 163/71 H 97 Room Air 07/14/24 02:00 07/14/24 02:00 07/14/24 02:00 07/14/24 02:00 07/14/24 02:00 07/14/24 02:00 Oxygen Delivery Method Room Air Weight: 195 lb 15.855 oz Body Mass Index (BMI) 28.9 Intake & Output: Intake and Output for Last 24 Hours 07/12/24 07/13/24 07/14/24 23:59 23:59 23:59 Intake Total 680 / 680 580 / 780 300 / 300 Output Total 1100 / 1100 1150 / 1550 1100 / 1100 Balance -420 / -420 -570 / -770 -800 / -800 Lab / Micro Data 07/14/24 05:05 07/14/24 05:05 Labs: Laboratory Results - last 24 hr 07/13/24 05:00: Sodium 144, Potassium 3.6, Chloride 112 H, Carbon Dioxide 28.0, Anion Gap 4 L, BUN 17, Creatinine 0.91, Estim Creat Clear Calc 90.45, Est GFR (MDRD) Af Amer 108, Est GFR (MDRD) Non-Af 89, BUN/Creatinine Ratio 18.7, Glucose 159 H, Calcium 8.4 L 07/13/24 06:33: POC Glucose 129 H 07/13/24 10:26: POC Glucose 133 H 07/13/24 16:56: POC Glucose 193 H 07/13/24 21:20: POC Glucose 221 H 07/14/24 05:05: WBC 8.9, RBC 4.06 L, Hgb 11.4 L, Hct 36.3 L, MCV 89.4, MCH 28.1, MCHC 31.4 L, RDW Std Deviation 43.4, RDW Coeff of Cheri 13.1, Plt Count 328, MPV 10.0, Immature Gran % (Auto) 0.400, Neut % (Auto) 64.6, Lymph % (Auto) 18.0 L, [place] % (Auto) 9.9, Eos % (Auto) 6.4 H, Baso % (Auto) 0.7, Absolute Neuts (auto) 5.8, Absolute Lymphs (auto) 1.60, Nucleated RBC % 0 Micro: Microbiology 07/12/24 15:29 Wound - Finger Gram Stain - Final 07/12/24 15:29 Wound - Finger Wound Culture - Preliminary No growth-Final to follow 07/09/24 09:57 Blood Culture (Wb) - Anticubital Right Blood Culture - Preliminary No growth in 48 hours. Physical Exam Narrative Left upper extremity LIF = left index finger Persistent, albeit improving, swelling and redness on the left index finger, worse on the dorsum. Incision open (packing is out ). The digit is not in a resting flexed position at baseline (resting in a neutral position). No pain over the A1 magnolia of the LIF with palpation. No pain in the palm or along the LIF deep flexor surface with flexor tendon excursion (extension/flexion) (passive or active). The distal portions of the digit are not swollen, rather the swelling is more localized to the dorsal/ulnar aspect of the finger where the patient is most tender. No pain radiating into the palm. No pain with axial loading of any of the joints of the left index finger. No pain over the carpal tunnel. No fluctuance on the finger/hand at this time. Motor: he is able to bend and extend all joints of the left upper extremity, but unable to make a full fist secondary to swelling and pain. Vascular: Less than 2-second capillary refill in all digits. Const alert and oriented x3 Eyes EOMs intact bilaterally Lymph Lymphatic: no lymphadenopathy noted Lymphatic Narrative: No lymphadenopathy in the left upper extremity at the elbow or epitrochlear region, no streaking erythema. Resp normal respiratory effort Cardio Rate: regular rate Assessment & Plan Assessment/Plan (1) Cellulitis: QUALIFIERS: Laterality: left Site of cellulitis: extremity Site of cellulitis of extremity: finger Qualified Code(s): L03.012 - Cellulitis of left finger PLAN: Improvement today on exam (continues to improve) Redness/swelling is receding Start Dial soap soaks 3 times per day with dry dressing applied thereafter Continue rest and elevation of the left upper extremity Follow-up wound cultures Plastics will continue to follow Charges/Coding Procedures Integumentary [id number]: 61308 Global Visit
[2024-07-14 06:30] LABS: Anion Gap 4 (5-15); BUN 17 mg/dL (7-18); BUN/Creat Ratio 17.5 RATIO (10-20); Calcium,Total 8.8 mg/dL (8.5-10.1); Chloride 109 mmol/L (98-107); Creatinine, Serum 0.97 mg/dL (0.70-1.30); EST Glomerular Filtration Rate 83 mL/min (>60); Est Glom Filt Rate - Afr Amer 100 mL/min (>60); Estimated Creatinine Clearance 83.74 ml/min; Glucose 125 mg/dL (74-106); Potassium 3.8 mmol/L (3.5-5.1); Sodium Level 143 mmol/L (136-145)
--- NOTE | 2024-07-14 06:54 | NURSING ---
Dressing removed from left hand, soaked in dial soap and re dressed as ordered.
[2024-07-14 07:22] LABS: Bedside Glucose 110 mg/dL (74-106)
[2024-07-14 08:00] VITALS: BP 140/76; PULSE 73; RESP 16; TEMP 36.8; O2SAT 96
[2024-07-14] MEDS: 0.9% Saline Lock 10 ML Syringe IV (09:06)
[2024-07-14] MEDS: Ceftriaxone 2 GM in 0.9% Normal Saline (50mL MB+) 50 ML IV (09:06)
[2024-07-14] MEDS: Ascorbic Acid 500 MG Tablet 1000 MG PO ×2 (09:13→16:12)
[2024-07-14] MEDS: Glucerna Shake 120 ML LIQUID PO ×3 (09:13→16:11)
[2024-07-14] MEDS: Cholecalciferol (Vit D3) 125 MCG CAPSULE (5,000 UNITS) PO (09:14)
[2024-07-14] MEDS: Zinc Sulfate 50 mg zinc (220 mg) ORAL capsule PO (09:14)
[2024-07-14] MEDS: Nystatin Powder 15gm Bottle 1 APPLIC TOPICAL ×2 (09:15→22:58)
[2024-07-14] MEDS: Pantoprazole Sodium 40 MG Tablet PO ×2 (09:15→22:58)
[2024-07-14] MEDS: Nystatin 500,000 UNIT/5 ML PO.SYRINGE (WCH) 500000 UNIT PO ×4 (09:15→22:58)
[2024-07-14] MEDS: Menthol/Lanolin/Calamine/Znox 113 GM Tube 1 APPLIC TOPICAL ×2 (09:16→22:55)
[2024-07-14] MEDS: Lactobacillis Acidophilus 1 CAP PO ×4 (09:16→22:55)
[2024-07-14 09:17] VITALS: PULSE 73
[2024-07-14] MEDS: Enoxaparin 40 MG/0.4 ML Syringe SC (09:17)
[2024-07-14] MEDS: Metoprolol Tartrate 25 MG Tablet 12.5 MG PO ×2 (09:17→22:57)
[2024-07-14] MEDS: Insulin Glargine-YFGN 100 UNIT/ML Pen 12 UNIT SC ×2 (09:19→22:56)
[2024-07-14] MEDS: Lisinopril 5 MG Tablet PO (09:23)
--- NOTE | 2024-07-14 09:36 | PCM.PN.HOSP ---
Reason for Visit Reason for Visit: Diagnoses Type 2 diabetes mellitus with diabetic polyneuropathy (07/08/24) Type 2 diabetes mellitus with hyperglycemia (07/08/24) Dehydration (07/08/24) Hypokalemia (07/08/24) Peripheral vascular disease, unspecified (07/08/24) Cellulitis of left finger (07/08/24) Cellulitis of left upper limb (07/08/24) Cellulitis, unspecified (07/08/24) Dysphagia, unspecified (07/08/24) Dizziness and giddiness (07/08/24) Acquired absence of left leg below knee (07/08/24) Objective Data Objective Data Vital Signs: Vital Signs Temp Pulse Resp BP Pulse Ox O2 Del Method 98.3 F 73 16 140/76 H 96 Room Air 07/14/24 08:00 07/14/24 09:17 07/14/24 08:00 07/14/24 08:00 07/14/24 08:00 07/14/24 08:00 Oxygen Delivery Method Room Air Weight: 195 lb 15.855 oz Body Mass Index (BMI) 28.9 Intake & Output: Intake and Output for Last 24 Hours 07/12/24 07/13/24 07/14/24 23:59 23:59 23:59 Intake Total 680 / 680 580 / 780 300 / 300 Output Total 1100 / 1100 1150 / 1550 1100 / 1100 Balance -420 / -420 -570 / -770 -800 / -800 Lab / Micro Data 07/14/24 05:05 07/14/24 05:05 Labs: Laboratory Results - last 24 hr 07/13/24 10:26: POC Glucose 133 H 07/13/24 16:56: POC Glucose 193 H 07/13/24 21:20: POC Glucose 221 H 07/14/24 05:05: WBC 8.9, RBC 4.06 L, Hgb 11.4 L, Hct 36.3 L, MCV 89.4, MCH 28.1, MCHC 31.4 L, RDW Std Deviation 43.4, RDW Coeff of Cheri 13.1, Plt Count 328, MPV 10.0, Immature Gran % (Auto) 0.400, Neut % (Auto) 64.6, Lymph % (Auto) 18.0 L, [place] % (Auto) 9.9, Eos % (Auto) 6.4 H, Baso % (Auto) 0.7, Absolute Neuts (auto) 5.8, Absolute Lymphs (auto) 1.60, Nucleated RBC % 0, Sodium 143, Potassium 3.8, Chloride 109 H, Carbon Dioxide 30.0, Anion Gap 4 L, BUN 17, Creatinine 0.97, Estim Creat Clear Calc 83.74, Est GFR (MDRD) Af Amer 100, Est GFR (MDRD) Non-Af 83, BUN/Creatinine Ratio 17.5, Glucose 125 H, Calcium 8.8 07/14/24 06:49: POC Glucose 110 H Micro: Microbiology 07/12/24 15:29 Wound - Finger Gram Stain - Final 07/12/24 15:29 Wound - Finger Wound Culture - Preliminary No growth-Final to follow 07/09/24 09:57 Blood Culture (Wb) - Anticubital Right Blood Culture - Preliminary No growth in 48 hours. Physical Exam Narrative Seen and examined Physical exam Patient had bedside incision and drainage of a small pocket of purulence material on the ulnar side of left index finger on 07/12. Improvement in pain and swelling of lleft index finger after incision and drainage. Patient reports improved dysphagia. Said soft to liquid bowel movement. Physical exam General: Alert, Oriented x3, Cooperative. Overweight BMI 29.8 kg/m? HEENT: Atraumatic, PERRLA, EOMI, Normocephalic Oral: No Gingival or Mucosal Lesions/ Ulcerations Neck: Supple, No JVD, Negative Carotid Bruits Chest wall/Lungs: Air entry diminished in bilateral lung bases. No crepitation/rhonchi Cardiovascular: Regular rate, Regular Rhythm, Normal S1, Normal S2, No M/G/R Abdomen: Bowel Sounds Present, Soft, Non Tender, Non-Distended : No dysuria. No renal angle tenderness. No suprapubic tenderness. Extremities: No edema, Capillary Refill Less than 3 Seconds Skin: Left index finger tenderness swelling better. Dressing is dry. Musculoskeletal: No Tenderness to Palpation of Joints or Extremities Neurological: Cranial nerves II-XII grossly intact, DTR 2+/4. No acute focal neurological deficit. Psych/Mental Status: Normal Affect, Appropriate. 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 Tenderness present on the medial and dorsal aspect of the left index finger platelet count 345,000. Discussed with the plastic surgeon Dr. Charles Sam. Plan for possible bedside drainage. Prelim blood culture negative for 48 hours. Pain control. ID is consulted 07/13: Patient had bedside incision and drainage of a small pocket of abscess on the medial aspect of left index finger. Soap soak 3 times a day. Continue IV antibiotics. Rest and elevation of left upper extremity. Prelim Gram stain of wound culture shows no growth. 07/14: Improvement in pain tenderness and swelling of left index finger. Complain of diarrhea but actually it is soft bowel movement. Does not meet definition of diarrhea. On probiotic # Abnormal swallowing sensation -Patient has a sticking sensation in his chest when he is eating more so solids than liquids. On PPI. Patient was guided by speech therapist and recommended GI consult. Seen by Dr. Lowery. Plan for EGD today 07/13: Patient had EGD on 07/12: Patient on nystatin and PPI Impressions : - LA Grade D erosive esophagitis with no bleeding. Biopsied. - Esophageal plaques were found, consistent with candidiasis. Biopsied. - Benign-appearing esophageal stenosis. Dilated. - Normal stomach. - Duodenitis. Recommendations : - Use Protonix (pantoprazole) 40 mg PO BID for 4 months. # Vertiginous symptoms -Large part of what brought patient to the hospital -07/12: Resolved #Type 2 diabetes mellitus -Continue 12 units twice daily of glargine 07/12: Glucoses fairly well-controlled. Morning glucose was 119. 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 #DVT ppx: Lovenox subcu Microbiology Past 72 Hours 07/12/24 15:29 Wound - Finger Wound Culture - Preliminary No growth-Final to follow 07/09/24 09:57 Blood Culture (Wb) - Anticubital Right Blood Culture - Preliminary No growth in 48 hours. Laboratory Results 07/12/24 17:14: POC Glucose 96 07/12/24 21:11: POC Glucose 192 H 07/12/24 21:30: Vancomycin Trough 20.1 H 07/13/24 05:00: WBC 8.4, RBC 3.99 L, Hgb 11.3 L, Hct 35.7 L, MCV 89.5, MCH 28.3, MCHC 31.7 L, RDW Std Deviation 43.5, RDW Coeff of Cheri 13.2, Plt Count 334, MPV 10.0, Immature Gran % (Auto) 0.500, Neut % (Auto) 64.9, Lymph % (Auto) 19.3, [place] % (Auto) 8.6, Eos % (Auto) 6.1 H, Baso % (Auto) 0.6, Absolute Neuts (auto) 5.4, Absolute Lymphs (auto) 1.61, Nucleated RBC % 0, Sodium 144, Potassium 3.6, Chloride 112 H, Carbon Dioxide 28.0, Anion Gap 4 L, BUN 17, Creatinine 0.91, Estim Creat Clear Calc 90.45, Est GFR (MDRD) Af Amer 108, Est GFR (MDRD) Non-Af 89, BUN/Creatinine Ratio 18.7, Glucose 159 H, Calcium 8.4 L 07/13/24 06:33: POC Glucose 129 H 07/13/24 10:26: POC Glucose 133 H Charges/Coding Visit Charges Inpatient E&M: 87903 Subs Hosp L2
[2024-07-14] MEDS: Vancomycin HCl 750 MG in 0.9% Normal Saline (250mL Bag) 250 ML 250 MG IV (10:05)
[2024-07-14] MEDS: Insulin Lispro 100 UNIT/ML INSULN.PEN SC ×3 (11:26→22:56)
[2024-07-14 11:47] LABS: Bedside Glucose 178 mg/dL (74-106)
[2024-07-14 14:00] VITALS: BP 148/83; PULSE 62; RESP 16; TEMP 36.7; O2SAT 97
[2024-07-14] MEDS: Acetaminophen 325 MG Tablet 650 MG PO (15:21)
[2024-07-14 16:27] LABS: Bedside Glucose 186 mg/dL (74-106)
[2024-07-14 20:00] VITALS: BP 129/66; PULSE 65; RESP 16; TEMP 36.7; O2SAT 97
[2024-07-14 22:08] LABS: Vancomycin, Trough Level 25.5 ug/mL (5.0-15.0)
--- NOTE | 2024-07-14 22:20 | PCM.RX.CS ---
Consult Antibiotic Management Pharmacy has been consulted to manage selected antibiotic: Vancomycin Type of Intervention Type of Consult: Follow-up Suspected Infection Suspected Infection: Skin/Soft tissue Labs Labs: Sodium 143 mmol/L (136-145) 07/14/24 05:05 Potassium 3.8 mmol/L (3.5-5.1) 07/14/24 05:05 Chloride 109 mmol/L (98-107) H 07/14/24 05:05 Carbon Dioxide 30.0 mmol/L (21.0-32.0) 07/14/24 05:05 Anion Gap 4 (5-15) L 07/14/24 05:05 BUN 17 mg/dL (7-18) 07/14/24 05:05 Creatinine 0.97 mg/dL (0.70-1.30) 07/14/24 05:05 Est GFR (MDRD) Af Amer 100 mL/min (>60) 07/14/24 05:05 Est GFR (MDRD) Non-Af 83 mL/min (>60) 07/14/24 05:05 BUN/Creatinine Ratio 17.5 RATIO (10-20) 07/14/24 05:05 Glucose 125 mg/dL (74-106) H 07/14/24 05:05 Vancomycin Trough 25.5 ug/mL (5.0-15.0) H 07/14/24 21:30 Random Vancomycin 17.3 ug/mL (0.0-15.0) H 07/11/24 05:55 Microbiology Microbiology: Microbiology 07/09/24 09:57 Blood Culture (Wb) - Anticubital Right Blood Culture - Final No growth in 5 days. 07/12/24 15:29 Wound - Finger Gram Stain - Final 07/12/24 15:29 Wound - Finger Wound Culture - Preliminary No growth-Final to follow Dosing Weight Weight used for dosin kg Estimated Creatinine Clearance Estimated Creatinine Clearance: 84 Goal Trough Goal Trough: 15-20 mcg/mL Pharmacy Plan for Drug Dosing Pharmacy Plan for Drug Dosing: Vancomycin trough level of 25.5 was again higher than the target range of 15-20. Will suspend current dosing and draw a random vanco level in 12 hours. Pharmacy Service will continue to monitor and adjust dosing as required. Follow-Up Labs Follow-Up Labs: Trough: Vancomycin (random) Date/Time Labs Ordered Labs to be done on [date and time ordered]: 07/15/24 @0930 (random)
[2024-07-14 22:57] VITALS: BP 129/66; PULSE 65
[2024-07-14 23:45] LABS: Bedside Glucose 243 mg/dL (74-106)
[2024-07-15] MEDS: Acetaminophen 325 MG Tablet 650 MG PO ×2 (02:06→08:40)
[2024-07-15 03:15] VITALS: BP 160/80; PULSE 61; RESP 16; TEMP 36.6; O2SAT 97
[2024-07-15 05:58] VITALS: BMI 30.4
--- NOTE | 2024-07-15 06:17 | PCM.PN.SRG ---
Subjective Subjective Afebrile with stable VS. His white blood cell count has normalized. Compliant with soaking. Persistent pain in the left index finger, particularly on the dorsum of the finger and hand. No pain in the palm. Objective Data Objective Data Vital Signs: Vital Signs Temp Pulse Resp BP Pulse Ox O2 Del Method 97.8 F 61 16 160/80 H 97 Room Air 07/15/24 03:15 07/15/24 03:15 07/15/24 03:15 07/15/24 03:15 07/15/24 03:15 07/15/24 03:15 Oxygen Delivery Method Room Air Weight: 205 lb 14.4 oz Body Mass Index (BMI) 30.4 Intake & Output: Intake and Output for Last 24 Hours 07/13/24 07/14/24 07/15/24 23:59 23:59 23:59 Intake Total 580 / 780 615 / 865 250 / 250 Output Total 1150 / 1550 1400 / 1800 900 / 900 Balance -570 / -770 -785 / -935 -650 / -650 Lab / Micro Data 07/14/24 05:05 07/14/24 05:05 Labs: Laboratory Results - last 24 hr 07/14/24 05:05: Sodium 143, Potassium 3.8, Chloride 109 H, Carbon Dioxide 30.0, Anion Gap 4 L, BUN 17, Creatinine 0.97, Estim Creat Clear Calc 83.74, Est GFR (MDRD) Af Amer 100, Est GFR (MDRD) Non-Af 83, BUN/Creatinine Ratio 17.5, Glucose 125 H, Calcium 8.8 07/14/24 06:49: POC Glucose 110 H 07/14/24 11:24: POC Glucose 178 H 07/14/24 16:09: POC Glucose 186 H 07/14/24 21:30: Vancomycin Trough 25.5 H 07/14/24 22:48: POC Glucose 243 H Micro: Microbiology 07/09/24 09:57 Blood Culture (Wb) - Anticubital Right Blood Culture - Final No growth in 5 days. 07/12/24 15:29 Wound - Finger Gram Stain - Final 07/12/24 15:29 Wound - Finger Wound Culture - Preliminary No growth-Final to follow Physical Exam Narrative Left upper extremity LIF = left index finger Persistent, albeit improving, swelling and redness on the left index finger, worse on the dorsum. Incision open. The digit is not in a resting flexed position at baseline (resting in a neutral position). No pain over the A1 magnolia of the LIF with palpation. No pain in the palm or along the LIF deep flexor surface with flexor tendon excursion (extension/flexion) (passive or active). The distal portions of the digit are not swollen, rather the swelling is more localized to the dorsal/ulnar aspect of the finger where the patient is most tender. No pain radiating into the palm. No pain with axial loading of any of the joints of the left index finger. No pain over the carpal tunnel. No fluctuance on the finger/hand at this time. Motor: he is able to bend and extend all joints of the left upper extremity, but unable to make a full fist secondary to swelling and pain. Vascular: Less than 2-second capillary refill in all digits. Const alert and oriented x3 Eyes EOMs intact bilaterally Lymph Lymphatic: no lymphadenopathy noted Lymphatic Narrative: No lymphadenopathy in the left upper extremity at the elbow or epitrochlear region, no streaking erythema. Resp normal respiratory effort Cardio Rate: regular rate Assessment & Plan Assessment/Plan (1) Cellulitis: QUALIFIERS: Laterality: left Site of cellulitis: extremity Site of cellulitis of extremity: finger Qualified Code(s): L03.012 - Cellulitis of left finger PLAN: WBC has normalized. Redness is decreasing. On exam, I cannot localize any pain or infection to his tendon sheath (no pain with excursion of the flexor tendon, Now has 0/4 [place] signs now that digit is no longer as swollen) Continue Dial soap soaks 3 times per day with dry dressing applied thereafter Continue rest and elevation of the left upper extremity Follow-up wound cultures (NGTD) Plastics will continue to follow Charges/Coding Procedures Integumentary [id number]: [id number] Global Visit
[2024-07-15 06:55] LABS: Bedside Glucose 112 mg/dL (74-106)
[2024-07-15 07:10] LABS: Absolute Lymphocyte Count 1.73 X10^3/uL (0.83-4.51); Absolute Neutrophil Count 6.1 X10^3/uL (2.0-7.7); Basophil# 0.04 X10^3/uL; Basophil% 0.4 % (0-1); Eosinophil# 0.51 X10^3/uL; Eosinophils% 5.6 % (0-5); Hematocrit 34.4 % (40-54); Lymphocyte # 1.73 X10^3/ul (0.83-4.51); Lymphocyte % 18.9 % (19-41); Mean Corpuscular Hgb 28.7 pg (27.0-32.0); Mean Corpuscular Volume 89.8 fL (80-94); Monocyte# 0.69 X10^3/uL; Monocyte% 7.5 % (0-10); NRBC Flagged by Analyzer 0 % (0-5); Neutrophil # 6.14 X10^3/uL (2.7-7.7); Neutrophil % 67.2 % (47-70); Platelet Count 305 K/mm3 (150-450); RBC Distribution Width CV 13.3 % (11.6-14.6); RBC Distribution Width SD 43.8 fl (35.1-43.9); Red Blood Count 3.83 M/mm3 (4.6-6.2); White Blood Count 9.2 K/mm3 (4.4-11.0)
[2024-07-15 07:42] LABS: Anion Gap 5 (5-15); BUN 20 mg/dL (7-18); BUN/Creat Ratio 19.8 RATIO (10-20); Calcium,Total 8.4 mg/dL (8.5-10.1); Chloride 110 mmol/L (98-107); Creatinine, Serum 1.01 mg/dL (0.70-1.30); EST Glomerular Filtration Rate 79 mL/min (>60); Est Glom Filt Rate - Afr Amer 95 mL/min (>60); Estimated Creatinine Clearance 82.28 ml/min; Glucose 115 mg/dL (74-106); Potassium 3.6 mmol/L (3.5-5.1); Sodium Level 144 mmol/L (136-145)
[2024-07-15 08:16] VITALS: BP 153/77; PULSE 69; RESP 18; TEMP 36.7; O2SAT 97
[2024-07-15] MEDS: Ascorbic Acid 500 MG Tablet 1000 MG PO ×2 (08:28→19:07)
[2024-07-15] MEDS: Menthol/Lanolin/Calamine/Znox 113 GM Tube 1 APPLIC TOPICAL ×2 (08:28→10:09)
[2024-07-15] MEDS: Lactobacillis Acidophilus 1 CAP PO ×4 (08:28→22:08)
[2024-07-15 08:29] VITALS: BP 153/77; PULSE 69
[2024-07-15] MEDS: Enoxaparin 40 MG/0.4 ML Syringe SC (08:29)
[2024-07-15] MEDS: Nystatin Powder 15gm Bottle 1 APPLIC TOPICAL ×2 (08:29→22:09)
[2024-07-15] MEDS: Metoprolol Tartrate 25 MG Tablet 12.5 MG PO ×2 (08:29→22:10)
[2024-07-15] MEDS: Pantoprazole Sodium 40 MG Tablet PO ×2 (08:30→22:10)
[2024-07-15] MEDS: Nystatin 500,000 UNIT/5 ML PO.SYRINGE (WCH) 500000 UNIT PO ×4 (08:30→22:10)
[2024-07-15] MEDS: Cholecalciferol (Vit D3) 125 MCG CAPSULE (5,000 UNITS) PO (08:30)
[2024-07-15] MEDS: Lisinopril 5 MG Tablet PO (08:30)
[2024-07-15] MEDS: Zinc Sulfate 50 mg zinc (220 mg) ORAL capsule PO (08:31)
[2024-07-15] MEDS: Glucerna Shake 120 ML LIQUID PO ×3 (08:39→17:02)
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
--- NOTE | 2024-07-15 10:11 | PCM.RX.CS ---
Consult Antibiotic Management Pharmacy has been consulted to manage selected antibiotic: Vancomycin Type of Intervention Type of Consult: Follow-up Suspected Infection Suspected Infection: Skin/Soft tissue Prior Doses of Antibiotics Prior Doses of Antibiotics Received/Current Regimen: Vancomycin 750 mg IV last dose given 07/14/24 @ 1005 Labs Labs: Sodium 144 mmol/L (136-145) 07/15/24 06:21 Potassium 3.6 mmol/L (3.5-5.1) 07/15/24 06:21 Chloride 110 mmol/L (98-107) H 07/15/24 06:21 Carbon Dioxide 29.0 mmol/L (21.0-32.0) 07/15/24 06:21 Anion Gap 5 (5-15) 07/15/24 06:21 BUN 20 mg/dL (7-18) H 07/15/24 06:21 Creatinine 1.01 mg/dL (0.70-1.30) 07/15/24 06:21 Est GFR (MDRD) Af Amer 95 mL/min (>60) 07/15/24 06:21 Est GFR (MDRD) Non-Af 79 mL/min (>60) 07/15/24 06:21 BUN/Creatinine Ratio 19.8 RATIO (10-20) 07/15/24 06:21 Glucose 115 mg/dL (74-106) H 07/15/24 06:21 Vancomycin Trough 25.5 ug/mL (5.0-15.0) H 07/14/24 21:30 Random Vancomycin 20.0 ug/mL (0.0-15.0) H 07/15/24 09:30 Microbiology Microbiology: Microbiology 07/12/24 15:29 Wound - Finger Gram Stain - Final 07/12/24 15:29 Wound - Finger Wound Culture - Final No growth aerobically. 07/09/24 09:57 Blood Culture (Wb) - Anticubital Right Blood Culture - Final No growth in 5 days. Dosing Weight Weight used for dosin kg Estimated Creatinine Clearance Estimated Creatinine Clearance: ~82 Goal Trough Goal Trough: 15-20 mcg/mL Pharmacy Plan for Drug Dosing Pharmacy Plan for Drug Dosing: Vancomycin trough = 20.0, ~ 23.5 hours from last dose, change to 1000 mg Q24H, trough before 3rd dose of new regimen. Pharmacy Service will continue to monitor and adjust dosing as required. Follow-Up Labs Follow-Up Labs: Trough: Vancomycin Date/Time Labs Ordered Labs to be done on [date and time ordered]: 07/17/24 @ 1000
[2024-07-15] MEDS: Ceftriaxone 2 GM in 0.9% Normal Saline (50mL MB+) 50 ML IV (10:21)
[2024-07-15] MEDS: 0.9% Saline Lock 10 ML Syringe IV ×2 (10:22→15:32)
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
[2024-07-15 12:33] LABS: Bedside Glucose 132 mg/dL (74-106)
--- NOTE | 2024-07-15 13:08 | WOUNDNOTE ---
wound photo: left index finger
[2024-07-15] MEDS: Vancomycin IV 1,000 MG/200 ML BAG 200 MG IV (13:10)
--- NOTE | 2024-07-15 14:00 | CASEMGMT ---
Social work Referral sent to [facility]. CRIS Brand
--- NOTE | 2024-07-15 14:20 | PCM.PN.ID ---
Physical Exam Narrative Feeling a little better, finger less sore, no fever, no n/v/d. Const alert and no apparent distress General Appearance: cooperative Resp normal air movement and clear to auscultation bilaterally Cardio regular rate and regular rhythm GI soft to palpation, non-tender and non-distended Extremity General Extremity: edema Skin Skin Narrative: reviewed photo L hand ID ID: Route of nutrition/ use of supplements: [] Nutritional Intake: [] IV Site: [] Wilkinson Catheter: [] Assessment & Plan Assessment/Plan (1) Diabetic neuropathy associated with type 2 diabetes mellitus: QUALIFIERS: Diabetes mellitus complication detail: diabetic polyneuropathy Qualified Code(s): E11.42 - Type 2 diabetes mellitus with diabetic polyneuropathy (2) Cellulitis of left hand: PLAN: Tenosynovitis seen on MRI. Bcx ngtd. Dr. Sam following. Hand less inflammed today. On vanc/ceftriaxone. Taken to OR 07/12/[address] Sam for I&D of abscess. Surg cx ngtd. Will follow
--- NOTE | 2024-07-15 14:40 | CASEMGMT ---
Discharge Planning [facility] has accepted and will start precert. Hien Nelson DC Planning Asst.
--- NOTE | 2024-07-15 14:45 | PN.HOSP_ITS ---
Reason for Visit Reason for Visit: Diagnoses Type 2 diabetes mellitus with diabetic polyneuropathy (07/08/24) Type 2 diabetes mellitus with hyperglycemia (07/08/24) Dehydration (07/08/24) Hypokalemia (07/08/24) Peripheral vascular disease, unspecified (07/08/24) Cellulitis of left finger (07/08/24) Cellulitis of left upper limb (07/08/24) Cellulitis, unspecified (07/08/24) Dysphagia, unspecified (07/08/24) Dizziness and giddiness (07/08/24) Acquired absence of left leg below knee (07/08/24) Objective Data Objective Data Vital Signs: Vital Signs Temp Pulse Resp BP Pulse Ox O2 Del Method 98.1 F 69 18 153/77 H 97 Room Air 07/15/24 08:16 07/15/24 08:29 07/15/24 08:16 07/15/24 08:29 07/15/24 08:16 07/15/24 08:18 Oxygen Delivery Method Room Air Weight: 205 lb 14.4 oz Body Mass Index (BMI) 30.4 Intake & Output: Intake and Output for Last 24 Hours 07/13/24 07/14/24 07/15/24 23:59 23:59 23:59 Intake Total 580 / 780 615 / 865 300 / 300 Output Total 1150 / 1550 1400 / 1800 900 / 900 Balance -570 / -770 -785 / -935 -600 / -600 Lab / Micro Data 07/15/24 06:21 07/15/24 06:21 Labs: Laboratory Results - last 24 hr 07/14/24 16:09: POC Glucose 186 H 07/14/24 21:30: Vancomycin Trough 25.5 H 07/14/24 22:48: POC Glucose 243 H 07/15/24 06:21: WBC 9.2, RBC 3.83 L, Hgb 11.0 L, Hct 34.4 L, MCV 89.8, MCH 28.7, MCHC 32.0, RDW Std Deviation 43.8, RDW Coeff of Cheri 13.3, Plt Count 305, MPV 10.0, Immature Gran % (Auto) 0.400, Neut % (Auto) 67.2, Lymph % (Auto) 18.9 L, Ringgold % (Auto) 7.5, Eos % (Auto) 5.6 H, Baso % (Auto) 0.4, Absolute Neuts (auto) 6.1, Absolute Lymphs (auto) 1.73, Nucleated RBC % 0, Sodium 144, Potassium 3.6, Chloride 110 H, Carbon Dioxide 29.0, Anion Gap 5, BUN 20 H, Creatinine 1.01, Estim Creat Clear Calc 82.28, Est GFR (MDRD) Af Amer 95, Est GFR (MDRD) Non-Af 79, BUN/Creatinine Ratio 19.8, Glucose 115 H, Calcium 8.4 L 07/15/24 06:22: POC Glucose 112 H 07/15/24 09:30: Random Vancomycin 20.0 H 07/15/24 12:14: POC Glucose 132 H Micro: Microbiology 07/12/24 15:29 Wound - Finger Gram Stain - Final 07/12/24 15:29 Wound - Finger Wound Culture - Final No growth aerobically. 07/12/24 15:29 Wound - Finger Anaerobic Culture - Preliminary No growth in 48 hours. 07/09/24 09:57 Blood Culture (Wb) - Anticubital Right Blood Culture - Final No growth in 5 days. Physical Exam Narrative Seen and examined Physical exam Patient had bedside incision and drainage of a small pocket of purulence material on the ulnar side of left index finger on 07/12. Hand swelling and incision wound is better. But left index finger still significantly swollen. Improvement in pain and swelling of lleft index finger after incision and drainage. Patient reports improved dysphagia. Said soft to liquid bowel movement. Physical exam General: Alert, Oriented x3, Cooperative. Overweight BMI 29.8 kg/m? HEENT: Atraumatic, PERRLA, EOMI, Normocephalic Oral: No Gingival or Mucosal Lesions/ Ulcerations Neck: Supple, No JVD, Negative Carotid Bruits Chest wall/Lungs: Air entry diminished in bilateral lung bases. No crepitation/rhonchi Cardiovascular: Regular rate, Regular Rhythm, Normal S1, Normal S2, No M/G/R Abdomen: Bowel Sounds Present, Soft, Non Tender, Non-Distended : No dysuria. No renal angle tenderness. No suprapubic tenderness. Extremities: No edema, Capillary Refill Less than 3 Seconds Skin: Left index finger tenderness swelling better. Swelling present. Musculoskeletal: No Tenderness to Palpation of Joints or Extremities. Can flex left hand fingers 30 degree left PIP joint Neurological: Cranial nerves II-XII grossly intact, DTR 2+/4. No acute focal neurological deficit. Psych/Mental Status: Normal Affect, Appropriate. 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 Tenderness present on the medial and dorsal aspect of the left index finger platelet count 345,000. Discussed with the plastic surgeon Dr. Charles Sam. Plan for possible bedside drainage. Prelim blood culture negative for 48 hours. Pain control. ID is consulted 07/13: Patient had bedside incision and drainage of a small pocket of abscess on the medial aspect of left index finger. Soap soak 3 times a day. Continue IV antibiotics. Rest and elevation of left upper extremity. Prelim Gram stain of wound culture shows no growth. 07/14: Improvement in pain tenderness and swelling of left index finger. Complain of diarrhea but actually it is soft bowel movement. Does not meet definition of diarrhea. On probiotic 07/15: Improvement in pain and tenderness. Patient is doing soap soak. Discussed with plastic surgeon. Probably 1-2 more days # Abnormal swallowing sensation -Patient has a sticking sensation in his chest when he is eating more so solids than liquids. On PPI. Patient was guided by speech therapist and recommended GI consult. Seen by Dr. Lowery. Plan for EGD today 07/13: Patient had EGD on 07/12: Patient on nystatin and PPI Impressions : - LA Grade D erosive esophagitis with no bleeding. Biopsied. - Esophageal plaques were found, consistent with candidiasis. Biopsied. - Benign-appearing esophageal stenosis. Dilated. - Normal stomach. - Duodenitis. Recommendations : - Use Protonix (pantoprazole) 40 mg PO BID for 4 months. # Vertiginous symptoms -Large part of what brought patient to the hospital -07/12: Resolved #Type 2 diabetes mellitus -Continue 12 units twice daily of glargine 07/12: Glucoses fairly well-controlled. Morning glucose was 119. 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 #DVT ppx: Lovenox subcu Microbiology Past 72 Hours 07/12/24 15:29 Wound - Finger Wound Culture - Preliminary No growth-Final to follow 07/09/24 09:57 Blood Culture (Wb) - Anticubital Right Blood Culture - Preliminary No growth in 48 hours. Laboratory Results 07/12/24 17:14: POC Glucose 96 07/12/24 21:11: POC Glucose 192 H 07/12/24 21:30: Vancomycin Trough 20.1 H 07/13/24 05:00: WBC 8.4, RBC 3.99 L, Hgb 11.3 L, Hct 35.7 L, MCV 89.5, MCH 28.3, MCHC 31.7 L, RDW Std Deviation 43.5, RDW Coeff of Cheri 13.2, Plt Count 334, MPV 10.0, Immature Gran % (Auto) 0.500, Neut % (Auto) 64.9, Lymph % (Auto) 19.3, Ringgold % (Auto) 8.6, Eos % (Auto) 6.1 H, Baso % (Auto) 0.6, Absolute Neuts (auto) 5.4, Absolute Lymphs (auto) 1.61, Nucleated RBC % 0, Sodium 144, Potassium 3.6, Chloride 112 H, Carbon Dioxide 28.0, Anion Gap 4 L, BUN 17, Creatinine 0.91, Estim Creat Clear Calc 90.45, Est GFR (MDRD) Af Amer 108, Est GFR (MDRD) Non-Af 89, BUN/Creatinine Ratio 18.7, Glucose 159 H, Calcium 8.4 L 07/13/24 06:33: POC Glucose 129 H 07/13/24 10:26: POC Glucose 133 H Charges/Coding Visit Charges Inpatient E&M: 33999 Subs Hosp L2
[2024-07-15 15:25] VITALS: BP 120/66; PULSE 63; RESP 16; TEMP 36.4; O2SAT 97
[2024-07-15] MEDS: Morphine 2 MG/ML Syringe IV (15:31)
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
[2024-07-15 19:41] LABS: Bedside Glucose 139 mg/dL (74-106)
[2024-07-15 21:25] VITALS: BP 147/58; PULSE 73; RESP 18; TEMP 36.7; O2SAT 98
[2024-07-15] MEDS: Insulin Glargine-YFGN 100 UNIT/ML Pen 12 UNIT SC (22:06)
[2024-07-15] MEDS: Insulin Lispro 100 UNIT/ML INSULN.PEN SC (22:07)
[2024-07-15 22:10] VITALS: PULSE 73
[2024-07-15 22:54] LABS: Bedside Glucose 247 mg/dL (74-106)
[2024-07-16 03:27] VITALS: BP 147/103; PULSE 69; RESP 18; TEMP 37; O2SAT 98
[2024-07-16 05:25] VITALS: BMI 28.8
[2024-07-16 07:06] LABS: Absolute Lymphocyte Count 1.66 X10^3/uL (0.83-4.51); Absolute Neutrophil Count 8.3 X10^3/uL (2.0-7.7); Basophil# 0.04 X10^3/uL; Basophil% 0.4 % (0-1); Eosinophil# 0.47 X10^3/uL; Eosinophils% 4.1 % (0-5); Hematocrit 34.5 % (40-54); Hemoglobin 10.9 g/dL (13.0-16.5); Lymphocyte # 1.66 X10^3/ul (0.83-4.51); Lymphocyte % 14.7 % (19-41); Mean Corp Hgb Conc 31.6 g/dL (32-36); Mean Corpuscular Hgb 28.3 pg (27.0-32.0); Mean Corpuscular Volume 89.6 fL (80-94); Mean Platelet Vol. 10.2 fl (6.2-12.0); Monocyte% 7.1 % (0-10); NRBC Flagged by Analyzer 0 % (0-5); Neutrophil # 8.29 X10^3/uL (2.7-7.7); Neutrophil % 73.1 % (47-70); Platelet Count 310 K/mm3 (150-450); RBC Distribution Width CV 13.5 % (11.6-14.6); RBC Distribution Width SD 43.8 fl (35.1-43.9); Red Blood Count 3.85 M/mm3 (4.6-6.2); White Blood Count 11.3 K/mm3 (4.4-11.0)
[2024-07-16 07:53] VITALS: BP 175/71; PULSE 73; RESP 16; TEMP 36.3; O2SAT 98
[2024-07-16 07:55] LABS: Anion Gap 5 (5-15); BUN 24 mg/dL (7-18); BUN/Creat Ratio 19.4 RATIO (10-20); Calcium,Total 8.5 mg/dL (8.5-10.1); Chloride 109 mmol/L (98-107); Creatinine, Serum 1.24 mg/dL (0.70-1.30); EST Glomerular Filtration Rate 62 mL/min (>60); Est Glom Filt Rate - Afr Amer 75 mL/min (>60); Estimated Creatinine Clearance 65.37 ml/min; Glucose 110 mg/dL (74-106); Potassium 3.9 mmol/L (3.5-5.1); Sodium Level 143 mmol/L (136-145)
[2024-07-16] MEDS: Glucerna Shake 120 ML LIQUID PO ×3 (08:10→15:47)
[2024-07-16] MEDS: Ascorbic Acid 500 MG Tablet 1000 MG PO (08:10)
[2024-07-16 08:13] VITALS: BP 140/76; PULSE 68; RESP 16; TEMP 37.1; O2SAT 97
--- NOTE | 2024-07-16 09:26 | PCM.PN.SRG ---
Subjective Subjective Patient doing well this morning. Reports improvement in his left index finger pain. Still pretty stiff though, he reports. Objective Data Objective Data Vital Signs: Vital Signs Temp Pulse Resp BP Pulse Ox O2 Del Method 98.7 F 68 16 140/76 H 97 Room Air 07/16/24 08:13 07/16/24 08:13 07/16/24 08:13 07/16/24 08:13 07/16/24 08:13 07/16/24 08:13 Oxygen Delivery Method Room Air Weight: 195 lb 1.745 oz Body Mass Index (BMI) 28.8 Intake & Output: Intake and Output for Last 24 Hours 07/14/24 07/15/24 07/16/24 23:59 23:59 23:59 Intake Total 615 / 865 500 / 500 Output Total 1400 / 1800 1450 / 1450 400 / 400 Balance -785 / -935 -950 / -950 -400 / -400 Lab / Micro Data 07/16/24 05:57 07/16/24 05:57 Labs: Laboratory Results - last 24 hr 07/15/24 09:30: Random Vancomycin 20.0 H 07/15/24 12:14: POC Glucose 132 H 07/15/24 17:00: POC Glucose 139 H 07/15/24 22:05: POC Glucose 247 H 07/16/24 05:57: WBC 11.3 H, RBC 3.85 L, Hgb 10.9 L, Hct 34.5 L, MCV 89.6, MCH 28.3, MCHC 31.6 L, RDW Std Deviation 43.8, RDW Coeff of Cheri 13.5, Plt Count 310, MPV 10.2, Immature Gran % (Auto) 0.600, Neut % (Auto) 73.1 H, Lymph % (Auto) 14.7 L, Shackelford % (Auto) 7.1, Eos % (Auto) 4.1, Baso % (Auto) 0.4, Absolute Neuts (auto) 8.3 H, Absolute Lymphs (auto) 1.66, Nucleated RBC % 0, Sodium 143, Potassium 3.9, Chloride 109 H, Carbon Dioxide 29.0, Anion Gap 5, BUN 24 H, Creatinine 1.24, Estim Creat Clear Calc 65.37, Est GFR (MDRD) Af Amer 75, Est GFR (MDRD) Non-Af 62, BUN/Creatinine Ratio 19.4, Glucose 110 H, Calcium 8.5 Micro: Microbiology 07/12/24 15:29 Wound - Finger Gram Stain - Final 07/12/24 15:29 Wound - Finger Wound Culture - Final No growth aerobically. 07/12/24 15:29 Wound - Finger Anaerobic Culture - Preliminary No growth in 48 hours. 07/09/24 09:57 Blood Culture (Wb) - Anticubital Right Blood Culture - Final No growth in 5 days. Physical Exam Narrative Left upper extremity LIF = left index finger Focal swelling and redness on the left index finger around the open wound on dorsal/radial aspect (I&D location). The digit is not in a resting flexed position at baseline (resting in a neutral position). No pain over the A1 magnolia of the LIF with palpation. No pain in the palm or along the LIF deep flexor surface with flexor tendon excursion (extension/flexion) (passive or active). The distal portions of the digit are not swollen, rather the swelling is more localized to the dorsal/ulnar aspect of the finger where the patient is most tender. No pain radiating into the palm. No pain with axial loading of any of the joints of the left index finger. No pain over the carpal tunnel. No fluctuance on the finger/hand at this time. Motor: he is able to bend and extend all joints of the left upper extremity, but unable to make a full fist secondary to swelling and pain. Passive flexion and extension of the LIF flexor tendons does not cause him any pain. Vascular: Less than 2-second capillary refill in all digits. Const alert and oriented x3 Eyes EOMs intact bilaterally Lymph Lymphatic: no lymphadenopathy noted Lymphatic Narrative: No lymphadenopathy in the left upper extremity at the elbow or epitrochlear region, no streaking erythema. Resp normal respiratory effort Cardio Rate: regular rate Assessment & Plan Assessment/Plan (1) Cellulitis: QUALIFIERS: Site of cellulitis: extremity Site of cellulitis of extremity: finger Laterality: left Qualified Code(s): L03.012 - Cellulitis of left finger PLAN: Redness is decreasing. On exam, I cannot localize any pain or infection to his tendon sheath (no pain with excursion of the flexor tendon, Now has 0/4 Kanavel signs now that digit is no longer as swollen). No flexor tenosynovitis at this time. Continue Dial soap soaks 3 times per day with dry dressing applied thereafter Continue rest and elevation of the left upper extremity Follow-up wound cultures (NGTD) -- I talked with ID and they're recommending course of oral antibiotics. OK for DC to SNF from [facility] with F/U at the wound care center with me on Monday, 22 Jul 2024. Charges/Coding Visit Charges Inpatient E&M: 17012 Subs Hosp L1 (58 modifier. Outside of global period for the I&D because monitoring for flexor tenosynovitis (different problem than the dorsal finger abscess) )
[2024-07-16 09:44] VITALS: PULSE 68
[2024-07-16] MEDS: Lisinopril 5 MG Tablet PO (09:44)
[2024-07-16] MEDS: Metoprolol Tartrate 25 MG Tablet 12.5 MG PO (09:44)
[2024-07-16] MEDS: Enoxaparin 40 MG/0.4 ML Syringe SC (09:44)
[2024-07-16] MEDS: Zinc Sulfate 50 mg zinc (220 mg) ORAL capsule PO (09:45)
[2024-07-16] MEDS: Nystatin 500,000 UNIT/5 ML PO.SYRINGE (WCH) 500000 UNIT PO ×2 (09:45→14:23)
[2024-07-16] MEDS: Pantoprazole Sodium 40 MG Tablet PO (09:45)
[2024-07-16] MEDS: Menthol/Lanolin/Calamine/Znox 113 GM Tube 1 APPLIC TOPICAL (09:45)
[2024-07-16] MEDS: Cholecalciferol (Vit D3) 125 MCG CAPSULE (5,000 UNITS) PO (09:45)
[2024-07-16] MEDS: Lactobacillis Acidophilus 1 CAP PO ×2 (09:45→15:47)
[2024-07-16] MEDS: Nystatin Powder 15gm Bottle 1 APPLIC TOPICAL (09:46)
[2024-07-16] MEDS: Ceftriaxone 2 GM in 0.9% Normal Saline (50mL MB+) 50 ML IV (09:51)
--- NOTE | 2024-07-16 10:11 | PCM.PN.ID ---
Physical Exam Narrative Feeling better, finger less red, no fever, no n/v/d. Const alert and no apparent distress General Appearance: cooperative Resp normal air movement and clear to auscultation bilaterally Cardio regular rate and regular rhythm GI soft to palpation, non-tender and non-distended Skin Skin Narrative: L hand slightly less red, less swollen, packing in place ID ID: Route of nutrition/ use of supplements: [] Nutritional Intake: [] IV Site: [] Wilkinson Catheter: [] Assessment & Plan Assessment/Plan (1) Diabetic neuropathy associated with type 2 diabetes mellitus: QUALIFIERS: Diabetes mellitus complication detail: diabetic polyneuropathy Qualified Code(s): E11.42 - Type 2 diabetes mellitus with diabetic polyneuropathy (2) Cellulitis of left hand: PLAN: Tenosynovitis seen on MRI. Bcx ngtd. Dr. Sam following. Hand less inflammed today. On vanc/ceftriaxone. Taken to OR 07/12/[address] Sam for I&D of abscess. Surg cx ngtd. Plan on discharge with 3 more weeks po doxy 100m bid and cefdinir 300mg bid. Will follow, d/w Dr. Sam
[2024-07-16] MEDS: Morphine 2 MG/ML Syringe IV ×2 (10:14→16:38)
[2024-07-16] MEDS: 0.9% Saline Lock 10 ML Syringe IV (10:15)
--- NOTE | 2024-07-16 10:19 | PCM.DC ---
Discharge Instructions Follow Up Care Test Results: Test results from this visit will be discussed in further detail at your follow-up appointment, if applicable. Discharge Plan Admission Admit Date/Time: 07/08/24 23:13 Attending Provider: Jeyson Mendoza Primary Care Provider: Kaylen Horton Consulting Providers: Ken Crum; Charles Sam; Charles De Leon; Randi Barksdale Discharge Orders/Prescriptions Prescriptions: No Action (DME) Left leg prosthetic See Rx Instructions .Route .MEDSUPPLY Qty: 1 0RF Rx Instructions: As directed (DME) walker Misc See Rx Instructions .ROUTE .MEDSUPPLY Qty: 1 0RF Rx Instructions: As directed insulin glargine [Lantus Solostar U-100 Insulin] 100 unit/mL (3 mL) insulin pen 20 unit subcut BID 30 Days Qty: 15 4RF Rx Instructions: Hold if glucose less than 130 mg/dl insulin lispro [Humalog KwikPen Insulin] 100 unit/mL insulin pen See Protocol subcut .AC Qty: 15 1RF Protocol: 4. Sliding Scale Insulin High-Med Dosing Condition: 150-199 mg/dl = 2 units Condition: 200-259 mg/dl = 4 units Condition: 260-324 mg/dl = 6 units Condition: 325-374 mg/dl = 8 units Condition: 375-409 mg/dl = 10 units Condition: 410-449 mg/dl = 11 units Condition: Greater than 449 call physician Protocol Text: Suggested for: - Patients on Total Daily Insulin Dose of 56-80 units - Patient who are known to be insulin resistant or septic HIGH MEDIUM DOSING ALGORITHM Rx Instructions: Sliding Scale Insulin High-Med Dosing Condition: 150-199 mg/dl = 2 units Condition: 200-259 mg/dl = 4 units Condition: 260-324 mg/dl = 6 units Condition: 325-374 mg/dl = 8 units Condition: 375-409 mg/dl = 10 units Condition: 410-449 mg/dl = 11 units Condition: Greater than 449 call physician (DME) OneTouch Ultra Test Strip See Rx Instructions .Route Qty: 100 1RF Rx Instructions: As directed to check blood glucose three times daily Referrals / Follow Up: Kaylen Horton MD [Primary Care Provider] - Charles Sam MD [Med Staff - Active Staff] - 07/22/24 2:00 pm ([facility])
[2024-07-16 12:12] LABS: Bedside Glucose 152 mg/dL (74-106)
[2024-07-16 12:12] LABS: Bedside Glucose 105 mg/dL (74-106)
[2024-07-16 14:16] VITALS: BP 118/51; PULSE 67; RESP 16; TEMP 36.8; O2SAT 98
--- NOTE | 2024-07-16 14:27 | CASEMGMT ---
JOE spoke with CERAMIC PLATER Nathalie Jones and patient needs to see Dr Sam 07-22 at 9a. Nathalie asked JOE if the halfway will be able to transport patient. JOE checked with [facility] and they would only be able to do an afternoon appt. [facility] said 2 or 3p would work. JOE notified Nathalie and patient's appt will be 07-22 at 2p. JOE notified [facility] and also put the appointment in patient's d/c instructions. [facility] also received authorization for patient. JOE notified physician and he will send patient today. JOE notified [facility]. Plan: d/c to [facility] under skilled level of care on a convalescent stay. Physicians will transport patient. Trina GRIFFITH
--- NOTE | 2024-07-16 14:30 | TREXTCAR_ITS ---
Diet Diet Order/Speech Therapy: 07/12/24 16:12 Diet: Regular - General Dietary Modifications:: Consistent Carbohydrate Routine Orders/Code Status Suppository Type: Dulcolax 10mg Suppository Frequency: Daily PRN Wound(s) R great toe: Wound Type: Neuropathic/Diabetic Foot Ulcer left index finger: Wound Type: cellulitis Dressing Change: Packed with Iodoform back: Wound Type: open sores from syndrome Therapies Extremity Affected:: Bilateral Lower Physical Therapy: Eval and Treat Occupational Therapy: Eval and Treat Speech Therapy: Eval and Treat Problem/Diagnosis (1) Diabetic neuropathy associated with type 2 diabetes mellitus: Status: Acute Code(s): E11.40 - Type 2 diabetes mellitus with diabetic neuropathy, unspecified (2) Cellulitis of left hand: Status: Acute Code(s): L03.114 - Cellulitis of left upper limb Plan # Left finger swelling and cellulitis -With accompanied white blood cell count but is increased to 18 as well as ESR of 60 and CRP of 123 -Finger x-ray with only soft tissue swelling however does have fairly high inflammatory markers -On cefazolin and also 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 Tenderness present on the medial and dorsal aspect of the left index finger platelet count 345,000. Discussed with the plastic surgeon Dr. Charles Sam. Plan for possible bedside drainage. Prelim blood culture negative for 48 hours. Pain control. ID is consulted 07/13: Patient had bedside incision and drainage of a small pocket of abscess on the medial aspect of left index finger. Soap soak 3 times a day. Continue IV antibiotics. Rest and elevation of left upper extremity. Prelim Gram stain of wound culture shows no growth. 07/14: Improvement in pain tenderness and swelling of left index finger. Complain of diarrhea but actually it is soft bowel movement. Does not meet definition of diarrhea. On probiotic 07/15: Improvement in pain and tenderness. Patient is doing soap soak. Discussed with plastic surgeon. Probably 1-2 more days # Abnormal swallowing sensation -Patient has a sticking sensation in his chest when he is eating more so solids than liquids. On PPI. Patient was guided by speech therapist and recommended GI consult. Seen by Dr. Lowery. Plan for EGD today 07/13: Patient had EGD on 07/12: Patient on nystatin and PPI Impressions : - LA Grade D erosive esophagitis with no bleeding. Biopsied. - Esophageal plaques were found, consistent with candidiasis. Biopsied. - Benign-appearing esophageal stenosis. Dilated. - Normal stomach. - Duodenitis. Recommendations : - Use Protonix (pantoprazole) 40 mg PO BID for 4 months. # Vertiginous symptoms -Large part of what brought patient to the hospital -07/12: Resolved #Type 2 diabetes mellitus -Continue 12 units twice daily of glargine 07/12: Glucoses fairly well-controlled. Morning glucose was 119. 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 #DVT ppx: Lovenox subcu Microbiology Past 72 Hours 07/12/24 15:29 Wound - Finger Wound Culture - Preliminary No growth-Final to follow 07/09/24 09:57 Blood Culture (Wb) - Anticubital Right Blood Culture - Preliminary No growth in 48 hours. Laboratory Results 07/12/24 17:14: POC Glucose 96 07/12/24 21:11: POC Glucose 192 H 07/12/24 21:30: Vancomycin Trough 20.1 H 07/13/24 05:00: WBC 8.4, RBC 3.99 L, Hgb 11.3 L, Hct 35.7 L, MCV 89.5, MCH 28.3, MCHC 31.7 L, RDW Std Deviation 43.5, RDW Coeff of Cheri 13.2, Plt Count 334, MPV 10.0, Immature Gran % (Auto) 0.500, Neut % (Auto) 64.9, Lymph % (Auto) 19.3, Ramsey % (Auto) 8.6, Eos % (Auto) 6.1 H, Baso % (Auto) 0.6, Absolute Neuts (auto) 5.4, Absolute Lymphs (auto) 1.61, Nucleated RBC % 0, Sodium 144, Potassium 3.6, Chloride 112 H, Carbon Dioxide 28.0, Anion Gap 4 L, BUN 17, Creatinine 0.91, Estim Creat Clear Calc 90.45, Est GFR (MDRD) Af Amer 108, Est GFR (MDRD) Non-Af 89, BUN/Creatinine Ratio 18.7, Glucose 159 H, Calcium 8.4 L 07/13/24 06:33: POC Glucose 129 H 07/13/24 10:26: POC Glucose 133 H Allergies/Procedures Done in Hospital Allergies onion Allergy (Verified 07/08/24 23:54) Food Allergy SWELLING Type of Care/Length of Stay Estimated LOS: Convalescent Care Less Than 30 days Type of Care Needed: Skilled Rehab Potential: Good Prognosis: Good Additional Orders/Day of Discharge Day of Discharge: 07/16/24 Dietary and Speech Recommendations Dietitian Recommendations/Changes: Continue consistent carb diet. Will order 120ml strawberry glucenra TID with medpass. Will monitor weight, as available. Reviewed and approved by Joann Mann RDN, LD. Discharge Plan Admission Admit Date/Time: 07/08/24 23:13 Attending Provider: Jeyson Mendoza Primary Care Provider: Kaylen Horton Consulting Providers: Ken Crum; Charles Sam; Charles De Leon; Randi Barksdale Discharge Orders/Prescriptions Prescriptions: New acetaminophen 325 mg Tablet 650 mg PO Q6H PRN PRN (Reason: Pain 1-10 Or Fever>100.7) Qty: 0 0RF ascorbic acid (vitamin C) 500 mg Tablet 500 mg PO BIDCM Qty: 0 0RF cholecalciferol (vitamin D3) 125 mcg (5,000 unit) Capsule 125 mcg PO DAILY Qty: 0 0RF insulin lispro [Humalog KwikPen Insulin] 100 unit/mL Insulin Pen See Protocol subcut ACHS Qty: 0 0RF Protocol: 4. Sliding Scale Insulin High-Med Dosing Condition: 150-199 mg/dl = 2 units Condition: 200-259 mg/dl = 4 units Condition: 260-324 mg/dl = 6 units Condition: 325-374 mg/dl = 8 units Condition: 375-409 mg/dl = 10 units Condition: 410-449 mg/dl = 11 units Condition: Greater than 449 call physician Protocol Text: Suggested for: - Patients on Total Daily Insulin Dose of 56-80 units - Patient who are known to be insulin resistant or septic HIGH MEDIUM DOSING ALGORITHM L.acidoph,saliva-B.bif-S.therm 175 mg Capsule 1 cap PO 2XD Qty: 0 0RF pantoprazole 40 mg Tablet,Delayed Release (Dr/Ec) 40 mg PO BID 90 Days Qty: 180 0RF lisinopril 5 mg Tablet 5 mg PO DAILY Qty: 0 0RF metoprolol tartrate 25 mg Tablet 12.5 mg PO BID Qty: 0 0RF cefdinir 300 mg capsule 300 mg PO BID 21 Days Qty: 42 0RF doxycycline monohydrate 100 mg capsule 100 mg PO BID 21 Days Qty: 42 0RF Changed insulin glargine [Lantus Solostar U-100 Insulin] 100 unit/mL (3 mL) insulin pen 8 unit subcut BID 30 Days Qty: 15 4RF Rx Instructions: Hold if glucose less than 130 mg/dl Discontinued insulin lispro [Humalog KwikPen Insulin] 100 unit/mL insulin pen See Protocol subcut .AC Qty: 15 1RF Protocol: 4. Sliding Scale Insulin High-Med Dosing Condition: 150-199 mg/dl = 2 units Condition: 200-259 mg/dl = 4 units Condition: 260-324 mg/dl = 6 units Condition: 325-374 mg/dl = 8 units Condition: 375-409 mg/dl = 10 units Condition: 410-449 mg/dl = 11 units Condition: Greater than 449 call physician Protocol Text: Suggested for: - Patients on Total Daily Insulin Dose of 56-80 units - Patient who are known to be insulin resistant or septic HIGH MEDIUM DOSING ALGORITHM Rx Instructions: Sliding Scale Insulin High-Med Dosing Condition: 150-199 mg/dl = 2 units Condition: 200-259 mg/dl = 4 units Condition: 260-324 mg/dl = 6 units Condition: 325-374 mg/dl = 8 units Condition: 375-409 mg/dl = 10 units Condition: 410-449 mg/dl = 11 units Condition: Greater than 449 call physician No Action (DME) Left leg prosthetic See Rx Instructions .Route .MEDSUPPLY Qty: 1 0RF Rx Instructions: As directed (DME) walker Misc See Rx Instructions .ROUTE .MEDSUPPLY Qty: 1 0RF Rx Instructions: As directed (DME) OneTouch Ultra Test Strip See Rx Instructions .Route Qty: 100 1RF Rx Instructions: As directed to check blood glucose three times daily Referrals / Follow Up: Kaylen Horton MD [Primary Care Provider] - Brian Lowery DO [Med Staff - Active Staff] - Within 1 Month Charles De Leon MD [Med Staff - Active Staff] - Within 1 Month Charles Sam MD [Med Staff - Active Staff] - 07/22/24 2:00 pm ([facility]) Disposition Disposition (needs filled in before D/C Order can be placed): Custodial Facility (1) Diabetic neuropathy associated with type 2 diabetes mellitus Qualifiers: Diabetes mellitus complication detail: diabetic polyneuropathy Qualified Code(s): E11.42 - Type 2 diabetes mellitus with diabetic polyneuropathy
--- NOTE | 2024-07-16 14:53 | CASEMGMT ---
JOE updated patient that his insurance has approved him to go to [facility] today. JOE explained that the physician plans on sending him today. JOE told patient about [facility] and [facility] will transport patient to the appt. Plan: d/c to [facility] under skilled level of care. Trina GRIFFITH
--- NOTE | 2024-07-16 15:38 | PCM.DC.SUM ---
Providers Date of Admission: 07/08/24 Date of Discharge: 07/16/24 Primary Care Physician: Dr. Kaylen Horton MD Consultations 07/10/24 10:47 Consult: Plastic Surgery Routine Consulting Provider: Charles Sam Reason for Consult: Worsening left index finger cellulitis EMERGENT Consult: No Notified: Yes Date Notified: 07/10/24 Time Notified: 10:48 Method of Notification: Text 07/10/24 10:51 Consult: Infectious Disease Routine Consulting Provider: Charles De Leon Reason for Consult: worsening R index finger cellulitis despite IV abx EMERGENT Consult: No Notified: Yes Date Notified: 07/10/24 Time Notified: 11:24 Method of Notification: Text 07/11/24 13:27 Consult: Gastroenterology Routine Consulting Provider: [facility] Reason for Consult: Food sticking in chest w/ pain causing sig decrease in PO intake and pain EMERGENT Consult: No Notified: Yes Date Notified: 07/11/24 Time Notified: 15:12 Method of Notification: Text Reason For Visit: LEFT INDEX FINGER CELLULITIS DEHYDRATION Diagnosis Discharge Diagnosis (1) Diabetic neuropathy associated with type 2 diabetes mellitus: Status: Acute Code(s): E11.40 - Type 2 diabetes mellitus with diabetic neuropathy, unspecified Qualifiers: Diabetes mellitus complication detail: diabetic polyneuropathy Qualified Code(s): E11.42 - Type 2 diabetes mellitus with diabetic polyneuropathy (2) Cellulitis of left hand: Status: Acute Code(s): L03.114 - Cellulitis of left upper limb Plan This [age] gentleman was brought to ED by EMS after he rolled over from couch, feeling dizzy and vertigo about 2 hours prior to presentation to ED. Patient has a history of left below-knee amputation from diabetic infection. History of COPD remote smoking stopped in . In the ED it was noted that patient left index finger was swollen which was red. 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 Tenderness present on the medial and dorsal aspect of the left index finger platelet count 345,000. Discussed with the plastic surgeon Dr. Charles Sam. Plan for possible bedside drainage. Prelim blood culture negative for 48 hours. Pain control. ID is consulted 07/13: Patient had bedside incision and drainage of a small pocket of abscess on the medial aspect of left index finger. Soap soak 3 times a day. Continue IV antibiotics. Rest and elevation of left upper extremity. Prelim Gram stain of wound culture shows no growth. 07/14: Improvement in pain tenderness and swelling of left index finger. Complain of diarrhea but actually it is soft bowel movement. Does not meet definition of diarrhea. On probiotic 07/15: Improvement in pain and tenderness. Patient is doing soap soak. Discussed with plastic surgeon. Probably 1-2 more days 07/16: Patient was evaluated by ID. Tenosynovitis on MRI. Blood culture negative. Surgical cultures no growth till date. Patient being discharged on 3 more weeks of doxycycline 100 mg twice daily and cefdinir 300 mg twice daily to SNF. Prescriptions given. Patient on soap soaks 3 times a day as mentioned above # Abnormal swallowing sensation -Patient has a sticking sensation in his chest when he is eating more so solids than liquids. On PPI. Patient was guided by speech therapist and recommended GI consult. Seen by Dr. Lowery. Plan for EGD today 07/13: Patient had EGD on 07/12: Patient on nystatin and PPI Impressions : - LA Grade D erosive esophagitis with no bleeding. Biopsied. - Esophageal plaques were found, consistent with candidiasis. Biopsied. - Benign-appearing esophageal stenosis. Dilated. - Normal stomach. - Duodenitis. Recommendations : - Use Protonix (pantoprazole) 40 mg PO BID for 4 months. 07/16 advised to continue pantoprazole at least for 3 months and follow-up in GI clinic in 1 month # Vertiginous symptoms -Large part of what brought patient to the hospital -07/12: Resolved #Type 2 diabetes mellitus -Continue 12 units twice daily of glargine 07/12: Glucoses fairly well-controlled. Morning glucose was 119. 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 #DVT ppx: Lovenox subcu Discharge medication reconciliation done. Discharge follow-up instructions completed. Discharge process discussed with the patient and all questions were answered to patient's satisfaction. Follow with PCP in 1 to 2 weeks Total time spent, exact 35 minutes on discharge meds reconciliation, examination, coordination of care with nurses and ancillary staff, review of imaging and blood test and discussion with the patient on follow-up instructions. Microbiology Past 72 Hours 07/12/24 15:29 Wound - Finger Gram Stain - Final 07/12/24 15:29 Wound - Finger Wound Culture - Final No growth aerobically. 07/12/24 15:29 Wound - Finger Anaerobic Culture - Preliminary No growth in 48 hours. 07/09/24 09:57 Blood Culture (Wb) - Anticubital Right Blood Culture - Final No growth in 5 days. Laboratory Results 07/15/24 17:00: POC Glucose 139 H 07/15/24 22:05: POC Glucose 247 H 07/16/24 05:57: WBC 11.3 H, RBC 3.85 L, Hgb 10.9 L, Hct 34.5 L, MCV 89.6, MCH 28.3, MCHC 31.6 L, RDW Std Deviation 43.8, RDW Coeff of Cheri 13.5, Plt Count 310, MPV 10.2, Immature Gran % (Auto) 0.600, Neut % (Auto) 73.1 H, Lymph % (Auto) 14.7 L, Emery % (Auto) 7.1, Eos % (Auto) 4.1, Baso % (Auto) 0.4, Absolute Neuts (auto) 8.3 H, Absolute Lymphs (auto) 1.66, Nucleated RBC % 0, Sodium 143, Potassium 3.9, Chloride 109 H, Carbon Dioxide 29.0, Anion Gap 5, BUN 24 H, Creatinine 1.24, Estim Creat Clear Calc 65.37, Est GFR (MDRD) Af Amer 75, Est GFR (MDRD) Non-Af 62, BUN/Creatinine Ratio 19.4, Glucose 110 H, Calcium 8.5 07/16/24 06:30: POC Glucose 105 07/16/24 11:52: POC Glucose 152 H Medications at Discharge Home Medications walker #1 ea 12/28/21 Left leg prosthetic #1 ea 07/13/22 blood sugar diagnostic (Keyhole.coTouch Ultra Test strips) #100 ea 05/31/24 L.acidophil,salivari-Bifido bifidum-Strep thermoph 175 mg capsule 1 cap PO 2XD #0 caps 07/16/24 acetaminophen 325 mg tablet 650 mg (2 x 325 mg) PO Q6H PRN PRN Pain 1-10 Or Fever>100.7 #0 tabs 07/16/24 ascorbic acid (vitamin C) 500 mg tablet 500 mg PO BIDCM #0 tabs 07/16/24 cefdinir 300 mg capsule 300 mg PO BID 3 weeks #42 caps 07/16/24 cholecalciferol (vitamin D3) 125 mcg (5,000 unit) capsule 125 mcg PO DAILY #0 caps 07/16/24 doxycycline monohydrate 100 mg capsule 100 mg PO BID 3 weeks #42 caps 07/16/24 insulin glargine 100 unit/mL (3 mL) subcutaneous pen (Lantus Solostar U-100 Insulin) 8 unit (0.08 mL) subcut BID 1 month #15 mL 07/16/24 insulin lispro 100 unit/mL subcutaneous pen (Humalog KwikPen (U-100) Insulin) See Protocol subcut ACHS #0 mL 07/16/24 lisinopril 5 mg tablet 5 mg PO DAILY #0 tabs 07/16/24 metoprolol tartrate 25 mg tablet 12.5 mg (1/2 x 25 mg) PO BID #0 tabs 07/16/24 pantoprazole 40 mg tablet,delayed release 40 mg PO BID 3 months #180 tabs 07/16/24 Physical Exam Narrative Seen and examined Patient left index finger is dressed. Left index finger still swollen with mild pain. Patient had bedside incision and drainage of a small pocket of purulence material on the ulnar side of left index finger on 07/12. Hand swelling and incision wound is better. But left index finger still significantly swollen. Physical exam General: Alert, Oriented x3, Cooperative. Overweight BMI 29.8 kg/m? HEENT: Atraumatic, PERRLA, EOMI, Normocephalic Oral: No Gingival or Mucosal Lesions/ Ulcerations Neck: Supple, No JVD, Negative Carotid Bruits Chest wall/Lungs: Air entry diminished in bilateral lung bases. No crepitation/rhonchi Cardiovascular: Regular rate, Regular Rhythm, Normal S1, Normal S2, No M/G/R Abdomen: Bowel Sounds Present, Soft, Non Tender, Non-Distended : No dysuria. No renal angle tenderness. No suprapubic tenderness. Extremities: No edema, Capillary Refill Less than 3 Seconds Skin: Left index finger tenderness swelling better. Swelling present. Musculoskeletal: No Tenderness to Palpation of Joints or Extremities. Can flex left hand fingers 30 degree left PIP joint with mild tenderness and swelling Neurological: Cranial nerves II-XII grossly intact, DTR 2+/4. No acute focal neurological deficit. Psych/Mental Status: Normal Affect, Appropriate. Weight / BMI Weight Weight: 195 lb 1.745 oz Body Mass Index (BMI) 28.8 ABG / Lab / Microbiology Data 07/16/24 05:57 07/16/24 05:57 Laboratory: Laboratory Results - last 24 hr 07/15/24 17:00: POC Glucose 139 H 07/15/24 22:05: POC Glucose 247 H 07/16/24 05:57: WBC 11.3 H, RBC 3.85 L, Hgb 10.9 L, Hct 34.5 L, MCV 89.6, MCH 28.3, MCHC 31.6 L, RDW Std Deviation 43.8, RDW Coeff of Cheri 13.5, Plt Count 310, MPV 10.2, Immature Gran % (Auto) 0.600, Neut % (Auto) 73.1 H, Lymph % (Auto) 14.7 L, Emery % (Auto) 7.1, Eos % (Auto) 4.1, Baso % (Auto) 0.4, Absolute Neuts (auto) 8.3 H, Absolute Lymphs (auto) 1.66, Nucleated RBC % 0, Sodium 143, Potassium 3.9, Chloride 109 H, Carbon Dioxide 29.0, Anion Gap 5, BUN 24 H, Creatinine 1.24, Estim Creat Clear Calc 65.37, Est GFR (MDRD) Af Amer 75, Est GFR (MDRD) Non-Af 62, BUN/Creatinine Ratio 19.4, Glucose 110 H, Calcium 8.5 07/16/24 06:30: POC Glucose 105 07/16/24 11:52: POC Glucose 152 H Microbiology: Microbiology 07/12/24 15:29 Wound - Finger Gram Stain - Final 07/12/24 15:29 Wound - Finger Wound Culture - Final No growth aerobically. 07/12/24 15:29 Wound - Finger Anaerobic Culture - Preliminary No growth in 48 hours. 07/09/24 09:57 Blood Culture (Wb) - Anticubital Right Blood Culture - Final No growth in 5 days. Meaningful Use Info Meaningful Use Meaningful Use Diagnoses (Choose all that apply): None applicable Ischemic Stroke Statin Dosing Therapy Reference: STATIN DOSE THERAPY REFERENCE: * Patients > 75 years receive moderate or high dose statin therapy. * Patients 75 years or YOUNGER should receive HIGH intensity statin dose unless contraindicated. You will be required to document reason for non-treatment if statin daily dose does not meet guidelines. HIGH DOSE STATIN THERAPY DAILY Atorvastatin > than or = to 40 mg Rosuvastatin > than or = to 20 mg Amlodipine + Atorvastatin > than or = to 2.5/40 mg Ezetimibe + Simvastatin 10/80 mg Simvastatin 80mg Discharge Plan Admission Admit Date/Time: 07/08/24 23:13 Primary Reason for Your Visit: Left index finger cellulitis/tenosynovitis Attending Provider: Jeyson Mendoza Primary Care Provider: Kaylen Horton Consulting Providers: Ken Crum; Charles Sam; Charles De Leon; Randi Barksdale Discharge Orders/Prescriptions Prescriptions: New acetaminophen 325 mg Tablet 650 mg PO Q6H PRN PRN (Reason: Pain 1-10 Or Fever>100.7) Qty: 0 0RF ascorbic acid (vitamin C) 500 mg Tablet 500 mg PO BIDCM Qty: 0 0RF cholecalciferol (vitamin D3) 125 mcg (5,000 unit) Capsule 125 mcg PO DAILY Qty: 0 0RF insulin lispro [Humalog KwikPen Insulin] 100 unit/mL Insulin Pen See Protocol subcut ACHS Qty: 0 0RF Protocol: 4. Sliding Scale Insulin High-Med Dosing Condition: 150-199 mg/dl = 2 units Condition: 200-259 mg/dl = 4 units Condition: 260-324 mg/dl = 6 units Condition: 325-374 mg/dl = 8 units Condition: 375-409 mg/dl = 10 units Condition: 410-449 mg/dl = 11 units Condition: Greater than 449 call physician Protocol Text: Suggested for: - Patients on Total Daily Insulin Dose of 56-80 units - Patient who are known to be insulin resistant or septic HIGH MEDIUM DOSING ALGORITHM L.acidoph,saliva-B.bif-S.therm 175 mg Capsule 1 cap PO 2XD Qty: 0 0RF pantoprazole 40 mg Tablet,Delayed Release (Dr/Ec) 40 mg PO BID 90 Days Qty: 180 0RF lisinopril 5 mg Tablet 5 mg PO DAILY Qty: 0 0RF metoprolol tartrate 25 mg Tablet 12.5 mg PO BID Qty: 0 0RF cefdinir 300 mg capsule 300 mg PO BID 21 Days Qty: 42 0RF doxycycline monohydrate 100 mg capsule 100 mg PO BID 21 Days Qty: 42 0RF Changed insulin glargine [Lantus Solostar U-100 Insulin] 100 unit/mL (3 mL) insulin pen 8 unit subcut BID 30 Days Qty: 15 4RF Rx Instructions: Hold if glucose less than 130 mg/dl Discontinued insulin lispro [Humalog KwikPen Insulin] 100 unit/mL insulin pen See Protocol subcut .AC Qty: 15 1RF Protocol: 4. Sliding Scale Insulin High-Med Dosing Condition: 150-199 mg/dl = 2 units Condition: 200-259 mg/dl = 4 units Condition: 260-324 mg/dl = 6 units Condition: 325-374 mg/dl = 8 units Condition: 375-409 mg/dl = 10 units Condition: 410-449 mg/dl = 11 units Condition: Greater than 449 call physician Protocol Text: Suggested for: - Patients on Total Daily Insulin Dose of 56-80 units - Patient who are known to be insulin resistant or septic HIGH MEDIUM DOSING ALGORITHM Rx Instructions: Sliding Scale Insulin High-Med Dosing Condition: 150-199 mg/dl = 2 units Condition: 200-259 mg/dl = 4 units Condition: 260-324 mg/dl = 6 units Condition: 325-374 mg/dl = 8 units Condition: 375-409 mg/dl = 10 units Condition: 410-449 mg/dl = 11 units Condition: Greater than 449 call physician No Action (DME) Left leg prosthetic See Rx Instructions .Route .MEDSUPPLY Qty: 1 0RF Rx Instructions: As directed (DME) walker Misc See Rx Instructions .ROUTE .MEDSUPPLY Qty: 1 0RF Rx Instructions: As directed (DME) OneTouch Ultra Test Strip See Rx Instructions .Route Qty: 100 1RF Rx Instructions: As directed to check blood glucose three times daily Referrals / Follow Up: Kaylen Horton MD [Primary Care Provider] - Brian Lowery DO [Med Staff - Active Staff] - Within 1 Month Charles De Leon MD [Med Staff - Active Staff] - Within 1 Month Charles Sam MD [Med Staff - Active Staff] - 07/22/24 2:00 pm ([facility]) Disposition Disposition (needs filled in before D/C Order can be placed): Group Home Facility
--- NOTE | 2024-07-16 15:41 | CASEMGMT ---
Plan: d/c to [facility] under skilled level of care on a PASRR. Physicians will transport patient via wheelchair van. Trina GRIFFITH
--- NOTE | 2024-07-16 15:59 | CASEMGMT ---
Discharge Planning Discharge orders, signed med list, and transport time sent to [facility] via [facility]. Physicians (Valerie) will transport patient by wheelchair at 4:45. Nursing and patient updated. Hien Nelson DC Planning Asst.
[2024-07-16] MEDS: Insulin Lispro 100 UNIT/ML INSULN.PEN SC (16:16)
[2024-07-16 16:37] LABS: Bedside Glucose 249 mg/dL (74-106)
--- NOTE | 2024-07-16 16:54 | NURSING ---
This RN called and gave report to SALMA Cantu at [facility].
--- NOTE | 2024-07-24 12:00 | CASEMGMT ---
SW received a message from [facility] and they attempted to call patient to set up an assessment for [employer] services. However, they were not able to reach patient. Trina GRIFFITH
== END 2024-07-16 16:51 | disposition skilled nursing facility (03) | DRG 638 ==
LOC: ED 20:14 → PCU 23:28
PROVIDERS: Internal Medicine; Internal Medicine Gastroenterology; Internal Medicine Infectious Disease; Admitting Provider Internal Medicine; Emergency Provider Emergency Medicine; PCP Internal Medicine; Visit Provider Internal Medicine
PROC: 0DJ08ZZ Inspection of Upper Intestinal Tract, Via Natural or Artificial Opening Endoscopic (ICD-10-PCS; CPT 43235; principal; 2024-07-12 15:40)
DX: E11.628 Type 2 diabetes mellitus with other skin complications (principal); B37.81 Candidal esophagitis; K22.10 Ulcer of esophagus without bleeding; L02.512 Cutaneous abscess of left hand; N17.9 Acute kidney failure, unspecified; K22.2 Esophageal obstruction; E11.51 Type 2 diabetes mellitus with diabetic peripheral angiopathy without gangrene; I48.91 Unspecified atrial fibrillation; E86.0 Dehydration; J44.9 Chronic obstructive pulmonary disease, unspecified; I10 Essential (primary) hypertension; Z89.512 Acquired absence of left leg below knee; E11.42 Type 2 diabetes mellitus with diabetic polyneuropathy; E11.65 Type 2 diabetes mellitus with hyperglycemia; Z79.4 Long term (current) use of insulin; E87.6 Hypokalemia; I25.10 Atherosclerotic heart disease of native coronary artery without angina pectoris; M65.842 Other synovitis and tenosynovitis, left hand; K29.80 Duodenitis without bleeding; I25.2 Old myocardial infarction; Q82.8 Other specified congenital malformations of skin; H81.10 Benign paroxysmal vertigo, unspecified ear; L03.012 Cellulitis of left finger; R13.10 Dysphagia, unspecified; E66.3 Overweight; Z68.28 Body mass index [BMI] 28.0-28.9, adult; Z86.718 Personal history of other venous thrombosis and embolism; Z86.711 Personal history of pulmonary embolism; Z87.891 Personal history of nicotine dependence; Z86.14 Personal history of Methicillin resistant Staphylococcus aureus infection
CPT/HCPCS: 36415; 70496; 70498; 71046; 73130; 73220; 80048; 80053; 80202; 82962; 83036; 83735; 84100; 84443; 85025; 85652; 86140; 87040; 87070; 87075; 87205; 88305; 88312; 92610; 93005; 93306; 97110; 97116; 97162; 97166; 97530; 97535; 99285; A9575; J7030; J7040; J7050; J7120; Q9957; Q9967; A4216; C1769; C8929; J0696; J2405

== ENCOUNTER 2024-07-22 13:41 | Outpatient (RCR) | payer MEDICARE, MEDICAID, SELFPAY ==
[2024-07-22 13:56] VITALS: BP 169/84; PULSE 74; RESP 18; TEMP 37.5
== END 2024-07-29 23:59 | disposition home or self-care (01) ==
LOC: WC 13:41
PROVIDERS: PCP Internal Medicine; Referring Provider Surgery Plastic and Reconstructive Surgery; Visit Provider Surgery Plastic and Reconstructive Surgery
DX: L03.012 Cellulitis of left finger (principal); M06.9 Rheumatoid arthritis, unspecified; Z89.512 Acquired absence of left leg below knee; J44.9 Chronic obstructive pulmonary disease, unspecified; E11.9 Type 2 diabetes mellitus without complications; I10 Essential (primary) hypertension; F17.290 Nicotine dependence, other tobacco product, uncomplicated
CPT/HCPCS: 99213; G0463

== ENCOUNTER 2024-08-12 10:39 | Inpatient (IN) | payer MEDICARE, MEDICAID, SELFPAY ==
[2024-08-12] VITALS (18 sets, daily range): BP systolic 91–166; BP diastolic 53–104; PULSE 72–167; RESP 14–22; TEMP 36.1–36.8; O2SAT 95–99; BMI 27.4; BMI 26.8
--- NOTE | 2024-08-12 10:42 | NURSING ---
[id number] STROKE ALERT CALLED 5 MIN PRIOR TO ARRIVAL
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
--- NOTE | 2024-08-12 10:45 | CT_ITS ---
INDICATION: Neuro deficit, acute, stroke suspected EXAMINATION: CT BRAIN - CT Head Stroke Protocol W/O Contrast Injection TECHNIQUE: Multiple axial images were obtained of the head without intravenous contrast. The protocol utilizes one or more of the following dose reduction techniques: automated exposure control, adjustment of mA and/or kV according to patient size,and/or use of iterative reconstruction technique. IV Contrast dosage and agent: None. RADIATION DOSAGE (If Supplied By Facility): CTDIvol = ( ) mGy, DLP = ( ) mGycm COMPARISON: July 08, 2024 FINDINGS: BRAIN PARENCHYMA: No intra- or extra-axial hemorrhage. No evidence of acute infarct. No intracranial mass or mass effect. There is preservation of the schofield/white matter interface. Posterior fossa structures are unremarkable. CSF SPACES: Appropriate for age. No hydrocephalus. Basal cisterns are patent. CALVARIUM, SKULL BASE, PARANASAL SINUSES AND MASTOID AIR CELLS: Clear. No discrete lytic or blastic abnormalities. ORBITS: Both globes, extraocular muscles, optic nerves and retrobulbar fat appear unremarkable. ASPECTS Score for Acute Strokes: 10 CT/STROKE Brain/Head without Cont IMPRESSION: No acute intracranial process. N.B. : The above Results were Read Back by Ninfa Flores MD to Gabriel Atkinson DO, and understanding confirmed on 08/12/2024 10:59:47 (ET). Electronically Signed: Ninfa Flores MD at 11:01 EDT ,
--- NOTE | 2024-08-12 10:45 | EKG12_ITS ---
Test Reason : STROKE ALERT Blood Pressure : / mmHG Vent. Rate : 142 BPM Atrial Rate : 117 BPM P-R Int : 000 ms QRS Dur : 086 ms QT Int : 368 ms P-R-T Axes : 000 -11 065 degrees QTc Int : 566 ms Critical Test Result: High HR POSSIBLE AFIB WITH RVR ST & T wave abnormality, consider inferior ischemia Abnormal ECG Confirmed by Adolfo Lange ([id number]), newspaper managing editor BALDO LANGSTON ([id number]) on 08/13/2024 8:26:57 AM Referred By: Gabriel Atkinson Confirmed By:Adolfo Lange
--- NOTE | 2024-08-12 10:47 | CT_ITS ---
We are attempting to reach an attending provider to discuss findings. An addendum with communication details will be sent when the communication is complete. INDICATION: Neuro deficit, acute, stroke suspected EXAMINATION: CT BRAIN WITHOUT CONTRAST, CTA HEAD, AND CTA NECK TECHNIQUE: Noncontrast axial images were obtained of the brain. Subsequently, routine carotid CT angiogram protocol was performed without and with IV contrast. In addition, images were obtained of the [place]. NASCET criteria using the distal ICAs for comparison were used for evaluation of stenoses. 3D reconstructions were reviewed. The protocol utilizes one or more of the following dose reduction techniques: automated exposure control, adjustment of mA and/or kV according to patient size,and/or use of iterative reconstruction technique. IV Contrast dosage and agent: 100 cc of [id number] COMPARISON: July 08, 2024 FINDINGS: --CT BRAIN WITHOUT CONTRAST: BRAIN PARENCHYMA: No intra- or extra-axial hemorrhage. No evidence of acute infarct. No intracranial mass or mass effect. There is preservation of the schofield/white matter interface. Posterior fossa structures are unremarkable. CSF SPACES: Appropriate for age. No hydrocephalus. Basal cisterns are patent. CALVARIUM, SKULL BASE, PARANASAL SINUSES AND MASTOID AIR CELLS: Clear. No discrete lytic or blastic abnormalities. ASPECTS Score for Acute Strokes: 10 --CTA NECK: AORTIC ARCH AND BRANCHES: Normal anatomy, patent. RIGHT CCA: No occlusion, significant stenosis or dissection. RIGHT ICA: No occlusion, significant stenosis or dissection. LEFT CCA: No occlusion, significant stenosis or dissection. LEFT ICA: No occlusion, significant stenosis or dissection. There are bilateral peripheral calcifications of the carotid bulbs. RIGHT VERTEBRAL ARTERY: No occlusion, significant stenosis or dissection. LEFT VERTEBRAL ARTERY: No occlusion, significant stenosis or dissection. NECK SOFT TISSUES: There is a stable 4 mm low-attenuation focus within the left lobe of the thyroid gland which may reflect a cyst There are stable postsurgical changes of C5-C7. --CTA HEAD: --Anterior circulation: ICAs: No significant stenosis at the intracranial/visualized segments. ACAs: No significant stenosis at the visualized segments. ACOM: Present. MCAs: No significant stenosis at the visualized segments. --Posterior circulation: PCOMs: Within normal limits. customer resolution specialist: No significant stenosis at the visualized segments. BASILAR ARTERY: No significant stenosis. VERTEBRAL ARTERIES: No significant stenosis at the intradural/visualized segments. No evidence of intracranial aneurysm or vascular malformation. CT/STROKE CTA Head AND Neck W/Con IMPRESSION: No acute intracranial abnormality. Bilateral atherosclerosis with no hemodynamically significant stenosis or occlusion. Electronically Signed: Ninfa Flores MD at 11:17 EDT ,
[2024-08-12 11:04] LABS: Absolute Lymphocyte Count 1.51 X10^3/uL (0.83-4.51); Absolute Neutrophil Count 6.5 X10^3/uL (2.0-7.7); Basophil# 0.08 X10^3/uL; Basophil% 0.8 % (0-1); Eosinophil# 0.49 X10^3/uL; Eosinophils% 5.1 % (0-5); Hematocrit 39.1 % (40-54); Hemoglobin 12.7 g/dL (13.0-16.5); Lymphocyte # 1.51 X10^3/ul (0.83-4.51); Lymphocyte % 15.7 % (19-41); Mean Corp Hgb Conc 32.5 g/dL (32-36); Mean Corpuscular Hgb 28.1 pg (27.0-32.0); Mean Corpuscular Volume 86.5 fL (80-94); Mean Platelet Vol. 10.1 fl (6.2-12.0); Monocyte# 0.96 X10^3/uL; NRBC Flagged by Analyzer 0 % (0-5); Neutrophil % 67.9 % (47-70); Platelet Count 320 K/mm3 (150-450); RBC Distribution Width CV 13.3 % (11.6-14.6); RBC Distribution Width SD 41.7 fl (35.1-43.9); Red Blood Count 4.52 M/mm3 (4.6-6.2); White Blood Count 9.6 K/mm3 (4.4-11.0)
[2024-08-12] MEDS: Metoprolol Tartrate 5 MG/5 ML Vial IV (11:12)
[2024-08-12 11:14] LABS: International Normalized Ratio 1.1; Prothrombin Time (Protime)PT. 13.8 SECONDS (11.7-14.9)
[2024-08-12 11:15] LABS: Partial Thromboplast Time 35.5 Seconds (24.1-36.2)
[2024-08-12 11:26] LABS: Anion Gap 13 (5-15); BUN 27 mg/dL (7-18); BUN/Creat Ratio 15.9 RATIO (10-20); Calcium,Total 9.1 mg/dL (8.5-10.1); Chloride 99 mmol/L (98-107); EST Glomerular Filtration Rate 43 mL/min (>60); Est Glom Filt Rate - Afr Amer 52 mL/min (>60); Estimated Creatinine Clearance 45.74 ml/min; Glucose 108 mg/dL (74-106); Potassium 3.1 mmol/L (3.5-5.1); Sodium Level 137 mmol/L (136-145); Troponin-I HS 28 pg/mL (3.0-78.0)
--- NOTE | 2024-08-12 11:29 | RAD_ITS ---
STUDY: X-RAY CHEST REASON FOR EXAM: Male, 64 years old. Neuro deficit, acute, stroke suspected TECHNIQUE: Single AP portable view of the chest. COMPARISON: 07/08/2024 FINDINGS: The lungs are clear and expanded. There is no demonstrated pleural abnormality. Normal size heart. Normal mediastinum and josue. Normal visualized pulmonary arteries. Normal visualized aortic arch and descending thoracic aorta. Normal visualized thoracic spine. Normal visualized ribs, clavicles, and shoulders. There is no demonstrated abnormality of the visualized soft tissue structures of the upper abdomen. RAD/Chest 1 View IMPRESSION: Normal x-ray examination of the chest. Electronically Signed: David Lloyd MD at 11:45 EDT ,
[2024-08-12] MEDS: 0.9% Normal Saline (500mL Bag) 500 ML 999 ML IV (11:55)
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
[2024-08-12] MEDS: Potassium Chloride Oral Tablet 20 MEQ 40 MEQ PO (12:16)
--- NOTE | 2024-08-12 12:16 | CHAPLAIN ---
Type of Pastoral Visit ___ Initial Visit ___ Follow-up Visit ___ On-call Visit ___ General Patient Visit ___ Spiritual Assessment ___ Family Conference ___ Bereavement _x__ Rapid Response ___ Code Blue ___ Other (describe below) Pastoral Care Referral From ___ Patient ___ Family ___ Nurse ___ Physician ___ Special Needs Caregiver ___ Ambulance Driver Paramedic _x__ Other (describe below) Sacrament/Intervention ___ Active listening ___ Anointing ___ Taoism ___ Bereavement ___ Communion ___ Maricel exploration ___ ___ Life review ___ Prayer ___ Reconciliation ___ Sacrament of Sick _x__ Supportive presence ___ Wedding ___ Other (describe below) Pastoral Comments was already in the ED when this stroke alert arrived by squad; medical attention given immediately; no family is present; pt is able to communicate with the doctor; was available for support
--- NOTE | 2024-08-12 12:30 | EKG12_ITS ---
Test Reason : REPEAT Blood Pressure : / mmHG Vent. Rate : 085 BPM Atrial Rate : 085 BPM P-R Int : 148 ms QRS Dur : 082 ms QT Int : 402 ms P-R-T Axes : 073 -36 050 degrees QTc Int : 478 ms Normal sinus rhythm Possible Left atrial enlargement Left axis deviation COMPOSITION WEATHERBOARD APPLIER Septal infarct , age undetermined Abnormal ECG Confirmed by Adolfo Lange ([id number]), primer expeditor and drier BALDO LANGSTON ([id number]) on 08/13/2024 8:27:36 AM Referred By: Gabriel Atkinson Confirmed By:Adolfo Lange
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
--- NOTE | 2024-08-12 15:02 | CASEMGMT ---
Care Management - Initial transition/Care Coordination Assessment Refer to ED CM note from this date for details of initial assessment. A [facility] assessment screen also completed this date. Called [facility] to check in about patient's reports of a scheduled assessment with [facility] block and case maker on 08.15.24 at 1100. Spoke with Uli who reports last contact [facility] had with patient was back in March when tried to schedule assessment for [facility]. Uli reports will reach out to CM at [facility] to see about whether assessment is scheduled for this week, and have the [facility] team call [facility] to check in. Provided this health science writer's contact information to share with [facility] team. Plan: To be determined. CM Team to monitor for home going needs, but patient hopes to return home. Will need to follow up with resources for food, home delivered meals and transportation. Coordination with [facility] CM regarding reported assessment scheduled for 08.15.24. -BEN Martinez
[2024-08-12 17:34] LABS: Magnesium 2.2 mg/dL (1.6-2.6)
--- NOTE | 2024-08-12 18:42 | MRI_ITS ---
STUDY: MRI BRAIN WITHOUT CONTRAST REASON FOR EXAM: Male, 64 years old. stroke TECHNIQUE: Standardized multiplanar fat and water weighted pulse sequences were obtained. COMPARISON: 08/18/2021, CT 08/12/2024 FINDINGS: There is mild cerebral atrophy with widening of the extra-axial spaces and ventricular dilatation. There are a limited number of small white matter hyperintensities, distributed throughout the deep white matter tracts of the cerebral hemispheres, consistent with mild chronic white matter ischemic changes. There is no evidence for recent intracranial ischemia or other cause of cytotoxic edema on diffusion weighted imaging (DWI). Normal T2* images of the brain without demonstrated susceptibility artifact. There is no demonstrated hemosiderin stain. Normal bilateral basal ganglia. Normal thalami. There is no extra-axial fluid accumulation. Normal flow voids within the major intracranial circulation suggesting patency by spin echo criteria. Normal sella turcica, pituitary gland, infundibular stalk, optic chiasm and hypothalamus. Normal tectal plate and pineal gland. Normal midbrain, rg and medulla. Normal cerebellum. Normal basal cisterns. Normal bilateral temporal bones. Normal bilateral internal auditory canals. There are bilateral ocular lens implants with otherwise normal intraorbital contents. Normal visualized paranasal sinuses. Normal calvarium and skull base. Normal visualized soft tissue structures. Normal visualized upper cervical spine. MRI/Brain without Contrast IMPRESSION: Involutional changes of the brain, as described above. No acute infarct. Electronically Signed: David Lloyd MD at 12:57 EDT ,
[2024-08-12 19:30] LABS: Troponin-I HS 1628 pg/mL (3.0-78.0)
[2024-08-12] MEDS: Metoprolol Tartrate 25 MG Tablet PO (19:32)
[2024-08-12] MEDS: Enoxaparin 80 MG/0.8 ML Syringe SC (19:32)
[2024-08-12] MEDS: 0.9% Normal Saline (1000mL) 1,000 ML 100 ML IV (20:49)
[2024-08-12] MEDS: Pantoprazole Sodium 40 MG Tablet PO (20:50)
[2024-08-12] MEDS: Atorvastatin Calcium 80 MG Tablet PO (20:50)
[2024-08-12 21:10] LABS: Bedside Glucose 121 mg/dL (74-106)
[2024-08-12 21:24] LABS: Troponin-I HS 1778 pg/mL (3.0-78.0)
[2024-08-13] VITALS (20 sets, daily range): BP systolic 130–170; BP diastolic 58–94; PULSE 56–79; RESP 16–18; TEMP 36.6–37.3; O2SAT 94–100
[2024-08-13 01:58] LABS: Troponin-I HS 1654 pg/mL (3.0-78.0)
[2024-08-13 06:32] LABS: Absolute Lymphocyte Count 1.31 X10^3/uL (0.83-4.51); Basophil# 0.07 X10^3/uL; Basophil% 0.9 % (0-1); Eosinophil# 0.37 X10^3/uL; Eosinophils% 4.9 % (0-5); Hematocrit 34.8 % (40-54); Hemoglobin 11.5 g/dL (13.0-16.5); Lymphocyte # 1.31 X10^3/ul (0.83-4.51); Lymphocyte % 17.5 % (19-41); Mean Corpuscular Hgb 28.8 pg (27.0-32.0); Mean Corpuscular Volume 87.2 fL (80-94); Mean Platelet Vol. 10.4 fl (6.2-12.0); Monocyte# 0.75 X10^3/uL; NRBC Flagged by Analyzer 0 % (0-5); Neutrophil # 4.97 X10^3/uL (2.7-7.7); Neutrophil % 66.4 % (47-70); Platelet Count 313 K/mm3 (150-450); RBC Distribution Width CV 13.4 % (11.6-14.6); RBC Distribution Width SD 42.7 fl (35.1-43.9); Red Blood Count 3.99 M/mm3 (4.6-6.2); White Blood Count 7.5 K/mm3 (4.4-11.0)
[2024-08-13] MEDS: 0.9% Normal Saline (1000mL) 1,000 ML 100 ML IV (06:34)
[2024-08-13 06:39] LABS: Anion Gap 8 (5-15); BUN 27 mg/dL (7-18); Calcium,Total 8.8 mg/dL (8.5-10.1); Chloride 108 mmol/L (98-107); Cholesterol 175 mg/dL (200); Creatinine, Serum 1.59 mg/dL (0.70-1.30); EST Glomerular Filtration Rate 47 mL/min (>60); Est Glom Filt Rate - Afr Amer 56 mL/min (>60); Estimated Creatinine Clearance 48.43 ml/min; Glucose 175 mg/dL (74-106); High Density Lipoprotein 38 mg/dL; Potassium 3.2 mmol/L (3.5-5.1); Sodium Level 140 mmol/L (136-145); Triglycerides 135 mg/dL; Very Low Density Lipoprotein 27 mg/dL (5-40)
[2024-08-13] MEDS: Insulin Lispro 100 UNIT/ML INSULN.PEN SC ×3 (06:42→20:39)
[2024-08-13 06:56] LABS: Bedside Glucose 163 mg/dL (74-106)
[2024-08-13] MEDS: Lisinopril 5 MG Tablet PO (08:38)
[2024-08-13] MEDS: Potassium Chloride Oral Tablet 20 MEQ 40 MEQ PO ×2 (08:38→09:21)
[2024-08-13] MEDS: Aspirin 81 MG TAB.CHEW PO (08:39)
[2024-08-13] MEDS: Metoprolol Tartrate 25 MG Tablet PO ×2 (08:39→20:40)
[2024-08-13] MEDS: Menthol/Lanolin/Calamine/Znox 113 GM Tube 1 APPLIC TOPICAL ×2 (08:40→20:42)
[2024-08-13] MEDS: Nystatin Powder 15gm Bottle 1 APPLIC TOPICAL ×2 (08:41→20:41)
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
--- NOTE | 2024-08-13 11:25 | CL.D_ITS ---
Patient Name: LIZETH BURGOS Study Date: 08/13/2024 Performing: Ajay Hurtado MD Ht: 68.89 inches 175 cm : 1960 Wt: 181.22 lbs 82.2 kg Age: 64 Gender: male BSA: 1.98 PROCEDURE(S) PERFORMED DC01-(96226)LHC/COR/LV IC10-(38017)FFR, CORONARY OR GRAFT, INITIAL VESSEL IC10-(11315)FFR, CORONARY OR GRAFT, INITIAL VESSEL CLINICAL PROFILE AND INDICATIONS Indications: Suspected CAD Heart Failure: None Stress/Imaging Stress/Image Study Performed: No CAD Presentations: Non-STEMI. Symptom onset Date/Time: 08/12/24 Time Not Available CONCLUSIONS Diffuse coronary artery disease with high-grade stenosis noted of the proximal to mid right coronary artery and moderately severe disease noted of the mid left anterior descending artery. Preserved ejection fraction RECOMMENDATIONS Consider IFR to the right coronary artery and LAD DESCRIPTION OF PROCEDURE The patient arrived to the procedure lab. The risks and benefits of the procedure as well as a full description of our services here and current unavailability of surgical backup were fully explained to the patient and/or their significant other prior to the catheterization. The Timeout was completed, verifying the correct patient and procedure. The patient's procedural site was prepped and draped in the usual fashion. Local anesthetic was given subcutaneously to right radial region with Lidocaine 2%. Using a modified Seldinger technique, arterial access was obtained via the right radial artery, a 6Fr sheath was inserted. Left Coronary Artery selective angiography was performed in multiple views using a 5 Fr. 4.0 Enfield catheter. Right Coronary Artery selective angiography was then performed in multiple views using a 5 Fr. 4.0 Enfield catheter. Left Ventriculography was performed in MCKEON projection using a 5 Fr. Pigtail catheter. LV to AO pullback pressures were then recorded.The arterial sheath was pulled and a TR Band was applied for hemostasis CORONARY ANGIOGRAPHY DOMINANCE: Right Dominant LEFT HEART ASSESSMENT Left Ventricular Ejection Fraction: by LV Gram 60 % Normal LV wall motion Normal Left Ventricular systolic function LEFT MAIN: Mild calcification, No significant disease noted LEFT ANTERIOR DESCENDING ARTERY: Medium size vessel with mild calcification and moderate disease noted in the proximal to mid left anterior descending artery and a first diagonal with moderate disease. CIRCUMFLEX ARTERY: Nondominant vessel with moderate 40 to 50% stenosis of the first obtuse marginal branch and AV groove branch. RAMUS: Mild luminal irregularities RIGHT CORONARY ARTERY: Large dominant vessel with long 70% stenosis involving the proximal to mid segment and mild diffuse disease involving the distal segments COMPLICATIONS No Complications PROCEDURE MEDICATIONS Fentanyl 50 mcg IV Versed 1 mg IV Oxygen: 2 L/min via nasal cannula Brilinta 180 mg PO @ 08/13/2024 11:19:47 Heparin given IA 08/13/2024 10:50:49 Heparin 4000 unit(s) IV 08/13/2024 11:33:14 Verapamil 2.5mg, Ntg 100mcgs, 3000 units of Heparin given IA 08/13/2024 10:50:49 SUMMARY OF HEMODYNAMIC DATA Time AIR REST AO 146/67 (98) SA 11:07:00 LV 150/8, 17 11:13:19 LV 152/9, 17 11:13:27 LV 140/12, 17 11:14:07
--- NOTE | 2024-08-13 11:45 | CASEMGMT ---
JOE called [facility] to obtain patient's lead case manager's information. JOE was informed the [facility] lead case manager is America Reeder phone- [phone]. JOE called America and left her a voice mail requesting a return call. Trina GRIFFITH
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
--- NOTE | 2024-08-13 13:03 | PN_ITS ---
Subjective Subjective Patient seen and examined. He had no complaints this morning. He had an uneventful night. He denies any chest pain or palpitations, dizziness, nausea vomiting or any other symptoms. Review of systems otherwise negative. His initial troponin on admission was 28 but subsequently trended up to 2628 10,778. Cardiology consulted this morning. Objective Data Objective Data Vital Signs: Vital Signs Temp Pulse Resp BP Pulse Ox O2 Del Method 97.9 F 56 L 18 170/84 H 98 Room Air 08/13/24 12:20 08/13/24 12:55 08/13/24 12:55 08/13/24 12:55 08/13/24 12:55 08/13/24 12:55 Oxygen Delivery Method Room Air Weight: 181 lb 3.52 oz Body Mass Index (BMI) 26.8 Intake & Output: Intake and Output for Last 24 Hours 08/11/24 08/12/24 08/13/24 23:59 23:59 23:59 Intake Total 800 / 900 1318.33 / 1318.33 Output Total 550 / 550 1000 / 1000 Balance 250 / 350 318.33 / 318.33 Lab / Micro Data 08/13/24 05:19 08/13/24 05:19 Labs: Laboratory Results - last 24 hr 08/12/24 10:40: Magnesium 2.2 08/12/24 19:02: Troponin I High Sens 1628 H* 08/12/24 20:47: POC Glucose 121 H 08/12/24 20:51: Troponin I High Sens 1778 H* 08/13/24 01:10: Troponin I High Sens 1654 H* 08/13/24 05:19: WBC 7.5, RBC 3.99 L, Hgb 11.5 L, Hct 34.8 L, MCV 87.2, MCH 28.8, MCHC 33.0, RDW Std Deviation 42.7, RDW Coeff of Cheri 13.4, Plt Count 313, MPV 10.4, Immature Gran % (Auto) 0.300, Neut % (Auto) 66.4, Lymph % (Auto) 17.5 L, [place] % (Auto) 10.0, Eos % (Auto) 4.9, Baso % (Auto) 0.9, Absolute Neuts (auto) 5.0, Absolute Lymphs (auto) 1.31, Nucleated RBC % 0, Sodium 140, Potassium 3.2 L , Chloride 108 H, Carbon Dioxide 25.0, Anion Gap 8, BUN 27 H, Creatinine 1.59 H, Estim Creat Clear Calc 48.43, Est GFR (MDRD) Af Amer 56 L, Est GFR (MDRD) Non-Af 47 L, BUN/Creatinine Ratio 17.0, Glucose 175 H, Hemoglobin A1c 7.0 H, Calcium 8.8, Triglycerides 135, Cholesterol 175, LDL Cholesterol 110, VLDL Cholesterol 27, HDL Cholesterol 38 L 08/13/24 06:34: POC Glucose 163 H Micro: Microbiology 08/12/24 23:20 Stool Clostridioides difficile (PCR) - Final Radiography Diagnostic Testing: Radiology Impression Brain MRI 08/12/24 18:42 IMPRESSION: Involutional changes of the brain, as described above. No acute infarct. Electronically Signed: David Lloyd MD at 12:57 EDT Reading Location ID and State: [address] [place] [address] Tel , Service support , Physical Exam Const alert, oriented x3 and no apparent distress Constitutional Narrative: looks much older than stated age. General Appearance: cooperative HEENT normocephalic, head/scalp atraumatic, hearing grossly normal bilaterally and moist oral mucous membranes Eyes PERRL, EOMs intact bilaterally and conjunctivae normal Neck no lymphadenopathy and supple Resp normal respiratory effort, normal air movement, no use of accessory muscles and clear to auscultation bilaterally Cardio regular rate, regular rhythm, S1 normal heart sound and S2 normal heart sound GI normal to inspection, nondistended, normoactive bowel sounds, soft to palpation, non-tender and non-distended Extremity full ROM, normal capillary refill and no clubbing, cyanosis or edema Extremity Narrative: LLE BKA with prosthesis in place General Extremity: no tenderness to palpation of joints or extremities Skin General Skin Exam: no breakdown Neuro oriented x3, CN's II-XII intact bilaterally, moves all extremities and no focal motor deficits Sensorium / Orientation: awake and alert Motor Exam: strength 5/5 throughout Psych thought process normal, cooperative and affect normal Appearance: appropriate Assessment & Plan Assessment/Plan (1) Paroxysmal atrial fibrillation with RVR: (2) Stroke-like symptoms: PLAN: Plan #Afib with RVR * RVR has resolved. He has slurred speech which patient thought was due to his immense dizziness and this * EKG showed A-fib which was rate controlled. Patient on p.o. metoprolol and has remained in normal sinus rhythm. * did receive a dose of SQ lovenox therapeutic dose yesterday * MRI of the brain done to rule out a stroke was negative for any evidence of stroke. 2D echo done and read is pending. * Initial troponin was negative but subsequently trended up to a peak of thousand 778. * Cardiology consulted today. * will place on eliquis and dc heparin drip * #Non-STEMI * Initial troponin was negative but subsequent troponins trended up to a peak of 1778. Denied any chest pain. * EKG on admission did not show the A-fib which was rate controlled. * Cardiology consulted today. He had cardiac cath which showed diffuse coronary artery disease with high-grade stenosis of the proximal to mid right coronary artery and moderately severe disease in the mid left anterior descending artery. * Cardiology decided on medical therapy * On aspirin and high intensity statin. Will add on Plavix #Strokelike symptoms * He did have dizziness with slurred speech which had resolved by the time he came into the ED. NIH stroke scale was 0 * CT of the brain showed no acute intracranial pathology and CT of the head and neck showed no hemodynamically significant stenosis * MRI of the brain was negative for any evidence of a stroke * P.o. aspirin 81 mg daily and p.o. atorvastatin high intensity dose. #WILLARD: Creatinine was 1.7 on admission with baseline creatinine being around 0.97. Creatinine is down to 1.59. COntinue gentle hydration with IVF and #Hypokalemia:Potassium is 3.2. Will replace and trend. 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 Insulin sliding scale. Accu-Cheks ACHS. * A1C is 7. * #Hypertension: Hold lisinopril and metoprolol. Will resume metoprolol today. COntinue holdinig lisinopril due to kidney function. DVT prophylaxis: start eliquis today. Did receive a dose of therapeutic lovenox yesterday CODE STATUS: Full code * P Charges/Coding Visit Charges Inpatient E&M: 72603 Subs Hosp L3
--- NOTE | 2024-08-13 13:45 | CL.I_ITS ---
Patient Name: LIZETH BURGOS Study Date: 08/13/2024 Performing: Felicity Malloy MD Ht: 69 inches 175 cm : 1960 Wt: 181.5 lbs 82.2 kg Age: 64 Gender: male BSA: 1.98 PROCEDURE(S) PERFORMED IC10-([id number])FFR, CORONARY OR GRAFT, INITIAL VESSEL IC10-([id number])FFR, CORONARY OR GRAFT, INITIAL VESSEL CLINICAL PROFILE AND CO-MORBIDITIES Indications: Suspected CAD Heart Failure: None Stress/Imaging Stress/Image Study Performed: No CAD Presentations: Non-STEMI. Symptom onset Date/Time: 08/12/24 Time Not Available CONCLUSIONS iFR in the LAD and RCA indicated stenoses that can be treated medically at this time RECOMMENDATIONS Medical therapy for CAD DESCRIPTION OF PROCEDURE The patient arrived to the procedure lab. The risks and benefits of the procedure as well as a full description of our services here and current unavailability of surgical backup were fully explained to the patient and/or their significant other prior to the catheterization. The Timeout was completed, verifying the correct patient and procedure. The patient's procedural site was prepped and draped in the usual fashion. Local anesthetic was given subcutaneously to right radial region with Lidocaine 2% Using a modified Seldinger technique,arterial access was obtained via the right radial artery, a 6Fr sheath was inserted. Left Coronary Artery selective angiography was performed in multiple views using a 5 Fr. 4.0 [place] catheter. Right Coronary Artery selective angiography was then performed in multiple views using a 5 Fr. 4.0 [place] catheter. Left Ventriculography was performed in [place] projection using a 5 Fr. [place] catheter. LV to AO pullback pressures were then recorded.The images were reviewed and options discussed. A decision was then made to proceed with an Intervention, IVUS or other adjunct procedure. JL 3.5 Guide catheter was inserted and engaged into the LCA. The FFR/iFR wire was inserted. Pressures and FFR/iFR were then recorded. iFR Ratio: 0.90 iFR Ratio: 0.90 The FFR/iFR wire was then removed. Guide catheter was exchanged for a JR4 The FFR/iFR wire was reinserted. Pressures and FFR/iFR were then recorded. iFR Ratio: 0.96 iFR Ratio: 0.96 The FFR/iFR wire was then removed. The arterial sheath was pulled and a TR Band was applied for hemostasis INTERVENTION INFORMATION LESION SITE: LAD (Mid) Lesion Devices: [place] Coronary FFR Wire Medtronic 6 Fr JL3.5 100cm Guide Catheter LESION SITE: RCA (Mid) Lesion Devices: Medtronic 6 Fr JR4.0 100cm Guide Catheter COMPLICATIONS No Complications PROCEDURE MEDICATIONS Fentanyl 50 mcg IV Versed 1 mg IV Oxygen: 2 L/min via nasal cannula Brilinta 180 mg PO @ 08/13/2024 11:19:47 Heparin given IA 08/13/2024 10:50:49 Heparin 4000 unit(s) IV 08/13/2024 11:33:14 Verapamil 2.5mg, Ntg 100mcgs, 3000 units of Heparin given IA 08/13/2024 10:50:49 SUMMARY OF HEMODYNAMIC DATA Time AIR REST ECG 10:32:43 AO 146/67 (98) SA 11:07:00 LV 150/8, 17 11:13:19 LV 152/9, 17 11:13:27 LV 140/12, 17 11:14:07 LVp 135/7, 20 11:14:11 AOp 160/-16 (39) 11:14:18 AIR REST 12:05:36 Signed By Felicity Malloy MD On 08/13/2024 13:44:53 Felicity Malloy MD
--- NOTE | 2024-08-13 13:54 | CASEMGMT ---
Met with patient to complete ROJO form. ROJO form explained to patient who voiced understanding and signed form. Original form placed in pt?s chart and copy provided to patient. Hien Nelson, Discharge Planning Asst
[2024-08-13 16:13] LABS: Bedside Glucose 176 mg/dL (74-106)
[2024-08-13 16:42] LABS: Bedside Glucose 128 mg/dL (74-106)
[2024-08-13] MEDS: Ascorbic Acid 500 MG Tablet PO (16:56)
[2024-08-13] MEDS: APIXABAN 5 MG TABLET PO (20:39)
[2024-08-13] MEDS: Insulin Glargine-YFGN 100 UNIT/ML Pen 8 UNIT SC (20:40)
[2024-08-13] MEDS: Atorvastatin Calcium 80 MG Tablet PO (20:40)
[2024-08-13] MEDS: Pantoprazole Sodium 40 MG Tablet PO (20:40)
[2024-08-13 21:09] LABS: Bedside Glucose 164 mg/dL (74-106)
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
[2024-08-14 04:00] VITALS: BP 147/66; PULSE 60; RESP 18; TEMP 36.2; O2SAT 96
[2024-08-14 07:04] LABS: Bedside Glucose 113 mg/dL (74-106)
[2024-08-14 07:09] LABS: Absolute Lymphocyte Count 1.53 X10^3/uL (0.83-4.51); Absolute Neutrophil Count 7.3 X10^3/uL (2.0-7.7); Basophil# 0.07 X10^3/uL; Basophil% 0.7 % (0-1); Eosinophil# 0.43 X10^3/uL; Eosinophils% 4.2 % (0-5); Hematocrit 35.5 % (40-54); Hemoglobin 11.3 g/dL (13.0-16.5); Lymphocyte # 1.53 X10^3/ul (0.83-4.51); Lymphocyte % 14.9 % (19-41); Mean Corp Hgb Conc 31.8 g/dL (32-36); Mean Corpuscular Hgb 28.1 pg (27.0-32.0); Mean Corpuscular Volume 88.3 fL (80-94); Mean Platelet Vol. 10.4 fl (6.2-12.0); Monocyte# 0.91 X10^3/uL; Monocyte% 8.9 % (0-10); NRBC Flagged by Analyzer 0 % (0-5); Neutrophil # 7.28 X10^3/uL (2.7-7.7); Neutrophil % 70.8 % (47-70); Platelet Count 266 K/mm3 (150-450); RBC Distribution Width CV 13.7 % (11.6-14.6); RBC Distribution Width SD 44.5 fl (35.1-43.9); Red Blood Count 4.02 M/mm3 (4.6-6.2); White Blood Count 10.3 K/mm3 (4.4-11.0)
[2024-08-14 07:36] LABS: ALB/GLOB Ratio 0.6 RATIO (0.9-2.4); AST(SGOT) 20 U/L (15-37); Alanine Aminotransfer ALT/SGPT 11 U/L (16-61); Albumin, Serum 2.4 g/dL (3.2-5.0); Alkaline Phosphatase 83 U/L (45-117); Anion Gap 5 (5-15); BUN 22 mg/dL (7-18); BUN/Creat Ratio 14.2 RATIO (10-20); Calcium,Total 8.7 mg/dL (8.5-10.1); Chloride 115 mmol/L (98-107); Creatinine, Serum 1.55 mg/dL (0.70-1.30); EST Glomerular Filtration Rate 48 mL/min (>60); Est Glom Filt Rate - Afr Amer 58 mL/min (>60); Estimated Creatinine Clearance 47.51 ml/min; Globulin 3.8 g/dL (2.2-4.2); Glucose 121 mg/dL (74-106); Potassium 3.7 mmol/L (3.5-5.1); Protein, Total 6.2 g/dL (6.4-8.2); Sodium Level 145 mmol/L (136-145)
--- NOTE | 2024-08-14 08:05 | CRPHASE1 ---
Patient Communication Patient Information Former Patient:: Phase I PHII Cardiac Rehab Discussed with Patient:: Yes Guide to Cardiac Rehab Given to Patient:: Yes Cardiac Rehab Facility Choice List Given to Patient:: Yes Communication to Cardiac Rehab Choice Program [facility] CR PHII:: Communication Given to CR and Refer to [facility] Telephone Switchboard Operator:: Tu Malloy PCP:: Kaylen Horton Refer Phase II Cardiac Rehab:: Yes Post Discharge Choice Letter Given to Patient:: Yes Phase I Charge:: Level I - Education Medical/Surgical History Medical History [place]:: Yes Angina:: Yes CAD:: Yes Congestive Heart Failure: Pulmonary:: Yes COPD:: Yes Diabetes:: Yes Diabetes Type II:: Yes Hypertension:: Yes Arrhythmias:: Yes CVA/TIA: PVD:: Yes Other Medical/Surgical Issues:: CHF, CVA Surgical History Orthopedic:: Yes (left BKA) Ambulation Ambulation Notes:: prosthetic left leg Cardiac Rehabilitation Info Program Information Cardiac Rehabilitation Program Information: Cardiac Rehab The cardiac rehab team at [facility] consists of highly skilled exercise physiologists, nurses, respiratory therapists and physicians working together with you. Our purpose is to help you have a full recovery and achieve the goals you set for yourself. Over the years many of our patients have returned to activities they assumed they would never do again! We can help restore your confidence and motivation to make lifestyle changes that can have a significant impact on your health and quality of life! We can help answer questions and concerns you may have about exercise, lifestyle, medications, diet, stress and anxiety which are common following a hospitalization. WE monitor ECG and vital signs during exercise and discuss your progress with you and report to your physician(s). Cardiac Rehab is proven to help reduce readmissions, improve functional capacity and lower recurrence of problems with your heart. Our Cardiac Rehab program is Certified by the [place] [employer] Pulmonary [employer] (AACVPR) and Accredited by the [place] [employer] through our [facility]. You can contact us at . We invite you to call us with your questions or to get started in our program. If you have other questions or concerns be sure to ask your physician/provider during your follow-up visit. WE look forward to seeing you!
--- NOTE | 2024-08-14 08:09 | CRPH1.INST_ITS ---
General Education Discussed with Patient CAD and cardiac anatomy and function:: Patient communicates acknowledgment, Patient returns demonstration and Needs reinforcement Explanation of diagnoses and procedures:: Patient communicates acknowledgment, Patient returns demonstration and Needs reinforcement Sign/Symptoms of MS:: Patient communicates acknowledgment, Patient returns demonstration and Needs reinforcement Antiplatelet therapy: Not instructed Proper use of NTG-SL: Patient communicates acknowledgment, Patient returns demonstration and Needs reinforcement Emergency procedures and activation of EMS: Patient communicates acknowledgment, Patient returns demonstration and Needs reinforcement Compliance of all prescribed medications: Patient communicates acknowledgment, P atient returns demonstration and Needs reinforcement Smoking Risk Factors Patient Nicotine/Smoking Risk Factors Are:: Never smoked Dyslipidemia Risk Factors Patient Dyslipidemia Risk Factors Are:: Total Cholesterol, Triglycerides, HDL and LDL Recommendations Recommendations Include:: Lipid profile provided and Therapeutic Lifestyle Change dietary guidelines Response Code Dyslipidemia Response Code:: Patient communicates acknowledgment, Patient returns demonstration and Needs reinforcement Overweight/Obesity Risk Factors Patient Overweight/Obesity Risk Factors Are:: Overweight = 26-29 Recommendations Recommendations Include:: Weight loss of 5-10% and Reduced calorie diet Response Code Overweight/Obesity:: Patient communicates acknowledgment, Patient returns demonstration and Needs reinforcement Hypertension Recommendations Recommendations Include:: Maintain BP <130/85 and Decrease/maintain normal body weight Response Code Hypertension:: Patient communicates acknowledgment, Patient returns demonstration and Needs reinforcement Heart Disease Risk Factors Patient Heart Disease Risk Factors Are:: Family history of heart disease < 65 years old and Previous cardiac event Response Code Heart Disease Response Code:: Patient communicates acknowledgment, Patient returns demonstration and Needs reinforcement Diabetes Risk Factors Patient Diabetes Risk Factors Are:: Elevated blood sugars Recommendations Recommendations Include:: Monitor blood sugar as prescribed and Diabetic dietary guidelines Response Code Diabetes:: Patient communicates acknowledgment, Patient returns demonstration and Needs reinforcement Metabolic Syndrome Risk Factors Patient Metabolic Syndrome Risk Factors Are [3 of 5]:: Fasting blood sugar > 100 mg/dL and Hypertension Recommendations Recommendations Include:: Patient is diabetic and Encouraged follow-up with Primary Care Physician Response Code Metabolic Syndrome Response Code:: Patient communicates acknowledgment, Patient returns demonstration and Needs reinforcement Sedentary Risk Factors Patient Sedentary Risk Factors Are:: Lack of regular exercise Recommendations Recommendations Include:: Aerobic exercise 5-7 times/week for 20-30 minutes continuously, Benefits of regular exercise, Discussed home walking program and Monitored Outpatient Cardiac Rehab Response Code Sedentary Response Code:: Patient communicates acknowledgment, Patient returns demonstration and Needs reinforcement Stress Recommendations Recommendations Include:: Identification of stressors, and assessment of coping skills and Stress management techniques Response Code Stress Response Code:: Patient communicates acknowledgment, Patient returns demonstration and Needs reinforcement
[2024-08-14] MEDS: Insulin Glargine-YFGN 100 UNIT/ML Pen 8 UNIT SC (08:40)
[2024-08-14] MEDS: APIXABAN 5 MG TABLET PO (08:40)
[2024-08-14] MEDS: Pantoprazole Sodium 40 MG Tablet PO (08:41)
[2024-08-14] MEDS: Cholecalciferol (Vit D3) 125 MCG CAPSULE (5,000 UNITS) PO (08:41)
[2024-08-14] MEDS: Lisinopril 5 MG Tablet PO (08:41)
[2024-08-14] MEDS: Ascorbic Acid 500 MG Tablet PO (08:41)
[2024-08-14] MEDS: Aspirin 81 MG TAB.CHEW PO (08:41)
[2024-08-14 08:42] VITALS: PULSE 80
[2024-08-14] MEDS: Metoprolol Tartrate 25 MG Tablet PO (08:42)
[2024-08-14] MEDS: FLU VACCINE **HIGH DOSE** TV 24-25 180 MCG/0.5 ML SYRINGE IM (08:48)
[2024-08-14 10:00] VITALS: BP 154/70; PULSE 65; RESP 20; TEMP 36.8; O2SAT 99
--- NOTE | 2024-08-14 10:00 | EKG12_ITS ---
Test Reason : AM EKG Blood Pressure : / mmHG Vent. Rate : 060 BPM Atrial Rate : 060 BPM P-R Int : 142 ms QRS Dur : 092 ms QT Int : 452 ms P-R-T Axes : 073 021 068 degrees QTc Int : 452 ms Normal sinus rhythm Normal ECG When compared with ECG of 12-AUG-2024 12:38, Criteria for Septal infarct are no longer Present Confirmed by Adolfo Lange ([id number]), slot editor HARSHAL MADRIGAL ([id number]) on 08/14/2024 1:58:25 PM Referred By: Gabriel Atkinson Confirmed By:Adolfo Lange
--- NOTE | 2024-08-14 10:09 | CASEMGMT ---
Discharge Planning A list of?HH providers including quality and resource use data and consistent with the patient's preferred geographic region, medical needs, and insurance network was created in [facility] Guide.? This list was provided to the RN GARRICK. Hien Nelson, Discharge Planning Asst.
--- NOTE | 2024-08-14 10:21 | DS.PCM_ITS ---
Providers Date of Admission: 08/13/24 Date of Discharge: 08/14/24 Primary Care Physician: Dr. Kaylen Horton MD Consultations 08/12/24 18:42 Consult: Tele-Neurology Routine Consulting Provider: [facility] Reason for Consult: Acute Ischemic Stroke/TIA EMERGENT Consult: No Notified: Yes Date Notified: 08/12/24 Time Notified: 18:43 Method of Notification: [facility] Staff Notify [facility] of Tele-Neurology Consult: Yes 08/13/24 08:07 Consult: Cardiology Routine Consulting Provider: Ajay Hurtado Reason for Consult: nonstemi EMERGENT Consult: No Notified: Yes Date Notified: 08/13/24 Time Notified: 08:08 Method of Notification: Text Reason For Visit: STROKE LIKE SYMPTOMS Diagnosis Discharge Diagnosis (1) Paroxysmal atrial fibrillation with RVR: Status: Acute Code(s): I48.0 - Paroxysmal atrial fibrillation (2) Stroke-like symptoms: Status: Acute Code(s): R29.90 - Unspecified symptoms and signs involving the nervous system Plan #Afib with RVR * RVR has resolved. He has slurred speech which patient thought was due to his immense dizziness and this * EKG showed A-fib which was rate controlled. Patient on p.o. metoprolol and has remained in normal sinus rhythm. * did receive a dose of SQ lovenox therapeutic dose yesterday * MRI of the brain done to rule out a stroke was negative for any evidence of stroke. 2D echo done and read is pending. * Initial troponin was negative but subsequently trended up to a peak of thousand 778. * Cardiology consulted today. * will place on eliquis and dc heparin drip * #Non-STEMI * Initial troponin was negative but subsequent troponins trended up to a peak of 1778. Denied any chest pain. * EKG on admission did not show the A-fib which was rate controlled. * Cardiology consulted today. He had cardiac cath which showed diffuse coronary artery disease with high-grade stenosis of the proximal to mid right coronary artery and moderately severe disease in the mid left anterior descending artery. * Cardiology decided on medical therapy * On aspirin and high intensity statin. Will add on Plavix #Strokelike symptoms * He did have dizziness with slurred speech which had resolved by the time he came into the ED. NIH stroke scale was 0 * CT of the brain showed no acute intracranial pathology and CT of the head and neck showed no hemodynamically significant stenosis * MRI of the brain was negative for any evidence of a stroke * P.o. aspirin 81 mg daily and p.o. atorvastatin high intensity dose. #WILLARD: Creatinine was 1.7 on admission with baseline creatinine being around 0.97. Creatinine is down to 1.59. COntinue gentle hydration with IVF and #Hypokalemia:Potassium is 3.2. Will replace and trend. 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 Insulin sliding scale. Accu-Cheks ACHS. * A1C is 7. * #Hypertension: Hold lisinopril and metoprolol. Will resume metoprolol today. COntinue holdinig lisinopril due to kidney function. DVT prophylaxis: start eliquis today. Did receive a dose of therapeutic lovenox yesterday CODE STATUS: Full code * P Medications at Discharge Home Medications walker #1 ea 12/28/21 Left leg prosthetic #1 ea 07/13/22 blood sugar diagnostic ([employer] EventsTouch Ultra Test strips) #100 ea 05/31/24 L.acidophil,salivari-Bifido bifidum-Strep thermoph 175 mg capsule 1 cap PO 2XD supplement #0 caps 07/16/24 acetaminophen 325 mg tablet 650 mg (2 x 325 mg) PO Q6H PRN PRN Pain 1-10 Or Fever>100.7 #0 tabs 07/16/24 ascorbic acid (vitamin C) 500 mg tablet 500 mg PO BIDCM vitamin #0 tabs 07/16/24 cefdinir 300 mg capsule 300 mg PO BID infection 3 weeks #42 caps 07/16/24 cholecalciferol (vitamin D3) 125 mcg (5,000 unit) capsule 125 mcg PO DAILY vitamin #0 caps 07/16/24 doxycycline monohydrate 100 mg capsule 100 mg PO BID infection 3 weeks #42 caps 07/16/24 insulin glargine 100 unit/mL (3 mL) subcutaneous pen (Lantus Solostar U-100 Insulin) 8 unit (0.08 mL) subcut BID diabetes 1 month #15 mL 07/16/24 insulin lispro 100 unit/mL subcutaneous pen (Humalog KwikPen (U-100) Insulin) See Protocol subcut ACHS diabetes #0 mL 07/16/24 lisinopril 5 mg tablet 5 mg PO DAILY blood pressure #0 tabs 07/16/24 pantoprazole 40 mg tablet,delayed release 40 mg PO BID reflux 3 months #180 tabs 07/16/24 apixaban 5 mg tablet (Eliquis) 5 mg PO BID #60 tabs 08/14/24 aspirin 81 mg chewable tablet 81 mg PO BREAKFAST #30 tabs 08/14/24 atorvastatin 80 mg tablet 80 mg PO QHS #30 tabs 08/14/24 metoprolol tartrate 25 mg tablet 25 mg PO BID #60 tabs 08/14/24 Hospital Course Operations None Procedures 2-D Echocardiogram and Cardiac catheterization Summary of Care Provided Minutes Spent on Discharge: 55 Hospital Course: LIZETH BURGOS, is a 64 M with a PMH as outlined who presents via the ED on 08/12/2024 with a complaint of altered mental status and slurred speech. Last known well was ~8am on the day of presentation, which was bout 2 hours 45 mins prior to admission. He states he woke up at around 6 AM on the day of presentation and felt well. He had no complaints. However at around 8 AM he started feeling acutely dizzy. He denied having any chest pain or lightheadedness and denied any nausea or vomiting. He said he felt very weak with the dizziness and that is why the assisted living staff thought that he was confused but he says he was not confused. He denied any weakness in his arms or lower extremities and denied any slurred speech or mouth droop. He denied any numbness or tingling and review of systems otherwise negative. He does say he has had such palpitations in the past and was told then that he may have an abnormal heart rhythm. He does not remember if it was A-fib. Vitals in the ED were temp of 97.7F, WA of 155 in the ED, but was down to 129 at time of review, BP down to 91/53 and he was saturating at 97% on room air. EKG showed new onset afib. CBC was unremarkable. BMP was significant for potassium of 3.1, Cr of 1.7. Initial troponin was negative. CXR showed no acute cardiopulmonary process and CT brain showed no acute intracranial pathology. CTA head and neck showed bilateral atherosclerosis with no hemodynamically significant stenosis or occlusion. He was admitted to be managed for new onset afib with RVR and altered mental status concerning for a stroke. His initial troponin was negative but subsequently trended up to a peak of about 1778. He was also started on PO metoprolol was initially given a dose of therapeutic Lovenox. In light of the troponin elevation cardiology was consulted. 2D echo showed EF of 60% with no evidence of diastolic dysfunction. Cardiology was consulted and he had cardiac cath which showed diffuse coronary artery disease with high-grade stenosis of the proximal to mid right coronary artery and moderately severe disease noted of the mid left anterior descending artery. Cardiology initially consulted inserting a stent into the RCA but subsequently decided on medical management. He was already on aspirin and Eliquis was added on due to the new onset afib. Cardiology recommended aspirin and eliquis, but not plavix due to the risk of bleeding with triple therapy. He remained stable and remained in normal sinus rhythm. He was discharged nish lila 08/14/2024 on PO aspirin, PO eliquis, high intensity statin, metopolol and lisinopril. His creatinine was slightly elevated at 1.55; have trended down from previously. He was counseled to keep well-hydrated and to follow-up with his PCP for repeat BMP 1 to 2 days to check his kidney function. Patient seen and examined prior to discharge. He had no active complaints and had an uneventful night. Review systems otherwise negative. Labs and vitals reviewed. Home medication reviewed and reconciled. Physical Exam Const alert, oriented x3 and no apparent distress Constitutional Narrative: looks much older than stated age. General Appearance: cooperative and comfortable Orientation / Consciousness: awake HEENT normocephalic, head/scalp atraumatic, hearing grossly normal bilaterally and moist oral mucous membranes Mouth: oral and palatal mucosa normal Eyes PERRL, EOMs intact bilaterally and conjunctivae normal Neck no lymphadenopathy and supple Resp normal respiratory effort, normal air movement, no use of accessory muscles and clear to auscultation bilaterally Cardio regular rate, regular rhythm, S1 normal heart sound and S2 normal heart sound GI normal to inspection, nondistended, normoactive bowel sounds, soft to palpation, non-tender and non-distended Extremity normal to inspection, full ROM, normal capillary refill and no clubbing, cyanosis or edema Extremity Narrative: LLE BKA with prosthesis in place General Extremity: no tenderness to palpation of joints or extremities Skin General Skin Exam: no breakdown Neuro oriented x3, CN's II-XII intact bilaterally, moves all extremities and no focal motor deficits Sensorium / Orientation: awake and alert Motor Exam: strength 5/5 throughout Psych thought process normal, cooperative and affect normal Appearance: appropriate Weight / BMI Weight Weight: 181 lb 3.52 oz Body Mass Index (BMI) 26.8 ABG / Lab / Microbiology Data 08/14/24 06:36 08/14/24 06:36 Laboratory: Laboratory Results - last 24 hr 08/13/24 12:28: POC Glucose 128 H 08/13/24 15:49: POC Glucose 176 H 08/13/24 20:38: POC Glucose 164 H 08/14/24 06:36: WBC 10.3, RBC 4.02 L, Hgb 11.3 L, Hct 35.5 L, MCV 88.3, MCH 28.1, MCHC 31.8 L, RDW Std Deviation 44.5 H, RDW Coeff of Cheri 13.7, Plt Count 266, MPV 10.4, Immature Gran % (Auto) 0.500, Neut % (Auto) 70.8 H, Lymph % (Auto) 14.9 L, Stanley % (Auto) 8.9, Eos % (Auto) 4.2, Baso % (Auto) 0.7, Absolute Neuts (auto) 7.3, Absolute Lymphs (auto) 1.53, Nucleated RBC % 0, Sodium 145, Potassium 3.7, Chloride 115 H, Carbon Dioxide 25.0, Anion Gap 5, BUN 22 H, C reatinine 1.55 H, Estim Creat Clear Calc 47.51, Est GFR (MDRD) Af Amer 58 L, Est GFR (MDRD) Non-Af 48 L, BUN/Creatinine Ratio 14.2, Glucose 121 H, Calcium 8.7, Total Bilirubin 0.50, AST 20, ALT 11 L, Alkaline Phosphatase 83, Total Protein 6.2 L, Albumin 2.4 L, Globulin 3.8, Albumin/Globulin Ratio 0.6 L 08/14/24 06:40: POC Glucose 113 H Microbiology: Microbiology 08/12/24 23:20 Stool Clostridioides difficile (PCR) - Final Radiography Diagnostic Testing: Radiology Impression Brain MRI 08/12/24 18:42 IMPRESSION: Involutional changes of the brain, as described above. No acute infarct. Electronically Signed: David Lloyd MD at 12:57 EDT , D/C Instructions Discharge Diet: Low fat / Low cholesterol Meaningful Use Info Meaningful Use Meaningful Use Diagnoses (Choose all that apply): AMI AMI/Post PCI/Angioplasty Aspirin given w/in 24hrs of arrival?: Yes ASA at discharge?: Yes Antiplatelet Therapy at Discharge:: No Reason Antiplatelet Therapy not ordered:: increased bleeding risk Statins at discharge?: Yes Vinay/ARB at discharge?: Yes Beta Michell at discharge?: Yes Done w/ Acute OK measure.: Yes Documented LVEF (%): 60 Ischemic Stroke Statin Dosing Therapy Reference: STATIN DOSE THERAPY REFERENCE: * Patients > 75 years receive moderate or high dose statin therapy. * Patients 75 years or YOUNGER should receive HIGH intensity statin dose unless contraindicated. You will be required to document reason for non-treatment if statin daily dose does not meet guidelines. HIGH DOSE STATIN THERAPY DAILY Atorvastatin > than or = to 40 mg Rosuvastatin > than or = to 20 mg Amlodipine + Atorvastatin > than or = to 2.5/40 mg Ezetimibe + Simvastatin 10/80 mg Simvastatin 80mg Discharge Plan Admission Admit Date/Time: 08/13/24 16:51 Primary Reason for Your Visit: afib with RVR, CAD Attending Provider: Cecelia Loyola Primary Care Provider: Kaylen Horton Consulting Providers: Galileo Reis; Apurva Pepper; Vicki Marte; Karoline Delgado; Rosa Castillo; Alan Garcia; Maria Antonia Workman; Afshin Pablo; Mauro Baeza; Doug Miramontes; Elenita Jordan; Killian Mart; Sherrell Moon; Yanet Donnelly; Sandy Alaniz; Migel Myers; Ana York; Mike Almendarez; Melissa Augustine; Aide,See; Ajay Hurtado Instructions Patient Instructions: AFib Dc, Heart Attack Dc, Heart Attack Meds Additional Instructions / Restrictions: see PCP within 1 week for BMP to evaluate kidney function. Discharge Orders/Prescriptions Prescriptions: New atorvastatin 80 mg Tablet 80 mg PO QHS Qty: 30 2RF aspirin 81 mg Tablet,Chewable 81 mg PO BREAKFAST Qty: 30 2RF metoprolol tartrate 25 mg Tablet 25 mg PO BID Qty: 60 2RF Eliquis 5 mg Tablet 5 mg PO BID Qty: 60 2RF Continued (DME) Left leg prosthetic See Rx Instructions .Route .MEDSUPPLY Qty: 1 0RF Rx Instructions: As directed acetaminophen 325 mg Tablet 650 mg PO Q6H PRN PRN (Reason: Pain 1-10 Or Fever>100.7) Qty: 0 0RF ascorbic acid (vitamin C) 500 mg Tablet 500 mg PO BIDCM Qty: 0 0RF cholecalciferol (vitamin D3) 125 mcg (5,000 unit) Capsule 125 mcg PO DAILY Qty: 0 0RF insulin lispro [Humalog KwikPen Insulin] 100 unit/mL Insulin Pen See Protocol subcut ACHS Qty: 0 0RF Protocol: 4. Sliding Scale Insulin High-Med Dosing Condition: 150-199 mg/dl = 2 units Condition: 200-259 mg/dl = 4 units Condition: 260-324 mg/dl = 6 units Condition: 325-374 mg/dl = 8 units Condition: 375-409 mg/dl = 10 units Condition: 410-449 mg/dl = 11 units Condition: Greater than 449 call physician Protocol Text: Suggested for: - Patients on Total Daily Insulin Dose of 56-80 units - Patient who are known to be insulin resistant or septic HIGH MEDIUM DOSING ALGORITHM Leslie,saliva-B.bif-S.therm 175 mg Capsule 1 cap PO 2XD Qty: 0 0RF pantoprazole 40 mg Tablet,Delayed Release (Dr/Ec) 40 mg PO BID 90 Days Qty: 180 0RF lisinopril 5 mg Tablet 5 mg PO DAILY Qty: 0 0RF cefdinir 300 mg capsule 300 mg PO BID 21 Days Qty: 42 0RF doxycycline monohydrate 100 mg capsule 100 mg PO BID 21 Days Qty: 42 0RF insulin glargine [Lantus Solostar U-100 Insulin] 100 unit/mL (3 mL) insulin pen 8 unit subcut BID 30 Days Qty: 15 4RF Rx Instructions: Hold if glucose less than 130 mg/dl (DME) hue [facility] [place] See Rx Instructions .ROUTE .MEDSUPPLY Qty: 1 0RF Rx Instructions: As directed (DME) OneTouch Ultra Test Strip See Rx Instructions .Route Qty: 100 1RF Rx Instructions: As directed to check blood glucose three times daily Discontinued metoprolol tartrate 25 mg Tablet 12.5 mg PO BID Qty: 0 0RF Referrals / Follow Up: Kaylen Horton MD [Primary Care Provider] - Within 1 Week Disposition Disposition (needs filled in before D/C Order can be placed): Home, Self Care Charges/Coding Visit Charges Inpatient E&M: 31856 Disch Hosp >30min
--- NOTE | 2024-08-14 10:35 | PCM.DC ---
Discharge Instructions Diet Discharge Diet: Low fat / Low cholesterol Activity Discharge Activity: Return to Normal Activity Weight Bearing Status: Weight bearing as tolerated Dressing / Incision Call your doctor if you observe: Fever of 101 or Higher, Shortness of breath, Dizziness, Swelling in the ankles and Chest pain Follow Up Care Test Results: Test results from this visit will be discussed in further detail at your follow-up appointment, if applicable. Discharge Plan Admission Admit Date/Time: 08/13/24 16:51 Primary Reason for Your Visit: afib with RVR, CAD Attending Provider: Cecelia Loyola Primary Care Provider: Kaylen Horton Consulting Providers: Galileo Reis; Apurva Pepper; Vicki Marte; Karoline Delgado; Rosa Castillo; Alan Garcia; Maria Antonia Workman; Afshin Pablo; Mauro Baeza; Doug Miramontes; Elenita Jordan; Killian Mart; Sherrell Moon; Yanet Donnelly; Sandy Alaniz; Migel Myers; Ana York; Mike Almendarez; Melissa Augustine; See Noble; Ajay Hurtado Instructions Patient Instructions: AFib Dc, Heart Attack Dc, Heart Attack Meds Additional Instructions / Restrictions: see PCP within 1 week for BMP to evaluate kidney function. Discharge Orders/Prescriptions Prescriptions: New atorvastatin 80 mg Tablet 80 mg PO QHS Qty: 30 2RF aspirin 81 mg Tablet,Chewable 81 mg PO BREAKFAST Qty: 30 2RF metoprolol tartrate 25 mg Tablet 25 mg PO BID Qty: 60 2RF Eliquis 5 mg Tablet 5 mg PO BID Qty: 60 2RF Continued (DME) Left leg prosthetic See Rx Instructions .Route .MEDSUPPLY Qty: 1 0RF Rx Instructions: As directed acetaminophen 325 mg Tablet 650 mg PO Q6H PRN PRN (Reason: Pain 1-10 Or Fever>100.7) Qty: 0 0RF ascorbic acid (vitamin C) 500 mg Tablet 500 mg PO BIDCM Qty: 0 0RF cholecalciferol (vitamin D3) 125 mcg (5,000 unit) Capsule 125 mcg PO DAILY Qty: 0 0RF insulin lispro [Humalog KwikPen Insulin] 100 unit/mL Insulin Pen See Protocol subcut ACHS Qty: 0 0RF Protocol: 4. Sliding Scale Insulin High-Med Dosing Condition: 150-199 mg/dl = 2 units Condition: 200-259 mg/dl = 4 units Condition: 260-324 mg/dl = 6 units Condition: 325-374 mg/dl = 8 units Condition: 375-409 mg/dl = 10 units Condition: 410-449 mg/dl = 11 units Condition: Greater than 449 call physician Protocol Text: Suggested for: - Patients on Total Daily Insulin Dose of 56-80 units - Patient who are known to be insulin resistant or septic HIGH MEDIUM DOSING ALGORITHM Alberacidoph,saliva-B.bif-S.therm 175 mg Capsule 1 cap PO 2XD Qty: 0 0RF pantoprazole 40 mg Tablet,Delayed Release (Dr/Ec) 40 mg PO BID 90 Days Qty: 180 0RF lisinopril 5 mg Tablet 5 mg PO DAILY Qty: 0 0RF cefdinir 300 mg capsule 300 mg PO BID 21 Days Qty: 42 0RF doxycycline monohydrate 100 mg capsule 100 mg PO BID 21 Days Qty: 42 0RF insulin glargine [Lantus Solostar U-100 Insulin] 100 unit/mL (3 mL) insulin pen 8 unit subcut BID 30 Days Qty: 15 4RF Rx Instructions: Hold if glucose less than 130 mg/dl (DME) hue [facility] [place] See Rx Instructions .ROUTE .MEDSUPPLY Qty: 1 0RF Rx Instructions: As directed (DME) OneTouch Ultra Test Strip See Rx Instructions .Route Qty: 100 1RF Rx Instructions: As directed to check blood glucose three times daily Discontinued metoprolol tartrate 25 mg Tablet 12.5 mg PO BID Qty: 0 0RF Referrals / Follow Up: Kaylen Horton MD [Primary Care Provider] - Within 1 Week Disposition Disposition (needs filled in before D/C Order can be placed): Home, Self Care
--- NOTE | 2024-08-14 10:52 | CASEMGMT ---
Addendum entered by Sandra Bravo 08/14/24 14:36: SALMA MCCAULEY called [facility] and requested prescription transfer. Addendum entered by Sandra Bravo 08/14/24 14:35: RN GARRICK received call back from [facility] and they are able to accept patient with planned start of care for possibly Monday. Patient had script for Eliquis, RN GARRICK called [facility] and copay is $0. RN CM in to updated patient. Patient states that he will need transport at discharge. RN GARRICK inquired about medications at [facility]'s and how patient would pick them up. Patient states [facility] delivers med on . RN CM updated patient that he had medications that needed to start this evening and asked if they could be transferred to the hospital pharmacy so that way he had them when he left the hospital. Patient agreeable to have script fill by [facility]. Patient denied further needs or concerns. RN GARRICK updated SW regarding need for transportation. Original Note: RN CM in to discuss needs at discharge with patient. RN CM discuss HHC with patient, list provided. Patient voiced interest in [facility] and has no preferences and was agreeable to have referral sent to [facility]. Patient voiced concern regarding transportation, patient reminded that had provided resources. Patient denies further needs or concerns. SALMA MCCAULEY made referral to [facility], awaiting acceptance.
[2024-08-14] MEDS: Insulin Lispro 100 UNIT/ML INSULN.PEN SC (12:30)
[2024-08-14 12:50] LABS: Bedside Glucose 153 mg/dL (74-106)
--- NOTE | 2024-08-14 14:37 | CASEMGMT ---
Patient needs transportation home. [facility] called [facility] and arranged for patient to get picked up via wheelchair van at 4p. JOE notified motor racer and RN. Trina GRIFFITH
== END 2024-08-14 10:34 | disposition home health service (06) | DRG 281 ==
LOC: ED 12:53 → PCU 17:13
PROVIDERS: Admitting Provider Student in an Organized Health Care Education/Training Program; Emergency Provider Emergency Medicine; PCP Internal Medicine; Referring Provider Emergency Medicine; Visit Provider Student in an Organized Health Care Education/Training Program
DX: I21.4 Non-ST elevation (NSTEMI) myocardial infarction (principal); N17.9 Acute kidney failure, unspecified; E11.51 Type 2 diabetes mellitus with diabetic peripheral angiopathy without gangrene; E11.42 Type 2 diabetes mellitus with diabetic polyneuropathy; E86.0 Dehydration; I10 Essential (primary) hypertension; I48.0 Paroxysmal atrial fibrillation; I25.10 Atherosclerotic heart disease of native coronary artery without angina pectoris; E87.6 Hypokalemia; J44.9 Chronic obstructive pulmonary disease, unspecified; Z89.612 Acquired absence of left leg above knee; I25.2 Old myocardial infarction; Z79.4 Long term (current) use of insulin; R47.81 Slurred speech; Z79.2 Long term (current) use of antibiotics; Z79.01 Long term (current) use of anticoagulants; Z79.899 Other long term (current) drug therapy; Z87.891 Personal history of nicotine dependence; Z86.711 Personal history of pulmonary embolism
CPT/HCPCS: 36415; 70450; 70496; 70498; 70551; 71045; 80048; 80053; 80061; 82962; 83036; 83735; 84484; 85025; 85610; 85730; 87493; 90662; 93005; 93458; 93571; 93572; 94762; 97161; 97166; 97802; 99152; 99153; 99285; J7030; J7040; Q9967; A4216; C1769; C1887; C1894

== ENCOUNTER → 2024-08-27 | Outpatient (CLI) | payer MEDICARE, MEDICAID, SELFPAY ==
[2024-08-27 17:03] LABS: Absolute Lymphocyte Count 1.65 X10^3/uL (0.83-4.51); Absolute Neutrophil Count 6.8 X10^3/uL (2.0-7.7); Basophil# 0.07 X10^3/uL; Basophil% 0.7 % (0-1); Eosinophil# 0.39 X10^3/uL; Hematocrit 40.1 % (40-54); Hemoglobin 12.5 g/dL (13.0-16.5); Lymphocyte # 1.65 X10^3/ul (0.83-4.51); Lymphocyte % 17.1 % (19-41); Mean Corp Hgb Conc 31.2 g/dL (32-36); Mean Corpuscular Hgb 28.1 pg (27.0-32.0); Mean Corpuscular Volume 90.1 fL (80-94); Mean Platelet Vol. 11.1 fl (6.2-12.0); Monocyte# 0.68 X10^3/uL; Monocyte% 7.1 % (0-10); NRBC Flagged by Analyzer 0 % (0-5); Neutrophil # 6.81 X10^3/uL (2.7-7.7); Neutrophil % 70.7 % (47-70); Platelet Count 307 K/mm3 (150-450); RBC Distribution Width CV 13.4 % (11.6-14.6); RBC Distribution Width SD 43.7 fl (35.1-43.9); Red Blood Count 4.45 M/mm3 (4.6-6.2); White Blood Count 9.6 K/mm3 (4.4-11.0)
[2024-08-27 17:28] LABS: ALB/GLOB Ratio 0.7 RATIO (0.9-2.4); AST(SGOT) 22 U/L (15-37); Alanine Aminotransfer ALT/SGPT 27 U/L (16-61); Albumin, Serum 2.9 g/dL (3.2-5.0); Alkaline Phosphatase 112 U/L (45-117); Anion Gap 5 (5-15); BUN 46 mg/dL (7-18); BUN/Creat Ratio 25.7 RATIO (10-20); Calcium,Total 9.1 mg/dL (8.5-10.1); Chloride 106 mmol/L (98-107); Creatinine, Serum 1.79 mg/dL (0.70-1.30); EST Glomerular Filtration Rate 41 mL/min (>60); Est Glom Filt Rate - Afr Amer 49 mL/min (>60); Globulin 4.3 g/dL (2.2-4.2); Glucose 199 mg/dL (74-106); Potassium 5.8 mmol/L (3.5-5.1); Protein, Total 7.2 g/dL (6.4-8.2); Sodium Level 138 mmol/L (136-145)
== END | disposition home or self-care (01) ==
PROVIDERS: PCP Internal Medicine; Referring Provider Nurse Practitioner; Visit Provider Nurse Practitioner
DX: I10 Essential (primary) hypertension (principal)
CPT/HCPCS: 36415; 80053; 85025

== ENCOUNTER 2024-09-02 16:12 | Outpatient (RCR) | payer MEDICAID, SELFPAY ==
[2024-09-02 16:45] LABS: Anion Gap 6 (5-15); BUN 30 mg/dL (7-18); BUN/Creat Ratio 22.6 RATIO (10-20); Calcium,Total 8.8 mg/dL (8.5-10.1); Chloride 108 mmol/L (98-107); Creatinine, Serum 1.33 mg/dL (0.70-1.30); EST Glomerular Filtration Rate 57 mL/min (>60); Est Glom Filt Rate - Afr Amer 69 mL/min (>60); Glucose 166 mg/dL (74-106); Potassium 4.1 mmol/L (3.5-5.1); Sodium Level 142 mmol/L (136-145)
== END 2024-09-28 18:00 | disposition home or self-care (01) ==
LOC: HHLAB 16:12
PROVIDERS: PCP Internal Medicine; Referring Provider Internal Medicine; Visit Provider Internal Medicine
DX: I48.0 Paroxysmal atrial fibrillation (principal)
CPT/HCPCS: 80048